=== PATIENT | female | born 1950 | race Caucasian/White ===

== ENCOUNTER 2017-05-09 16:01 | Inpatient (IN) ==
[2017-05-09] MEDS ORDERED: 0.9 % Sodium Chloride 500 ML IVC ONE (18:43)
[2017-05-09] MEDS ORDERED: Metoclopramide 10 MG/2 ML VIAL IVP ONE (18:43)
--- NOTE | 2017-05-09 18:47 | Emergency Department Note ---
Disposition Clinical Impression: Hypokalemia Nausea and vomiting Qualifiers: Vomiting type: unspecified Vomiting Intractability: intractable Qualified Code( s): R11.2 - Nausea with vomiting, unspecified UTI (urinary tract infection) Qualifiers: Urinary tract infection type: site unspecified Hematuria presence: with hematuria Qualified Code(s): N39.0 - Urinary tract infection, site not specified Disposition: Admitted As Inpatient Condition: Fair Nausea/Vomiting/Diarrhea HPI - General Chief complaint: ED Nausea/Vomiting/Diarrhea Stated complaint: N/V Time Seen by Provider: 05/09/17 18:29 Source: patient, EMS Mode of arrival: ambulatory Limitations: no limitations Nursing Notes Reviewed: Yes Vital Signs Reviewed: Yes - History of Present Illness HPI Narrative: 66-year-old female history of diabetes, hypertension, CAD, on dialysis 2 days a week Tuesday and write a presents for evaluation of nausea and vomiting. Patient notes symptoms initially started approximately 3 weeks ago with diarrhea. Patient states that since then she has been taking antidiarrheal medicines which helped. Does note some intermittent nausea and vomiting over the past 2 weeks. States she has been able to tolerate some liquids but notes nausea and vomiting. Also notes some lower abdominal as well as midepigastric pain. States that she has had her gallbladder removed. No aggravating or alleviating symptoms identified. Has not been given any medicine prior to arrival. - Related Data Home Medications Medication Instructions Recorded Confirmed Amitriptyline [Elavil] 50 mg PO HS 07/10/15 03/17/17 Cranberry 400 mg PO BID 07/10/15 03/17/17 Cyclobenzaprine [Flexeril] 10 mg PO HS 07/10/15 03/17/17 Duloxetine [Cymbalta] 30 mg PO BID 07/10/15 03/17/17 Ergocalciferol (VITAMIN D2) 50,000 unit PO TU 07/10/15 03/17/17 [Vitamin D2 (50,000 UNIT)] Folic Acid 1 mg PO DAILY 07/10/15 03/17/17 Insulin ASPART [NovoLOG] 10 unit SQ BID 07/10/15 03/17/17 Insulin DETEMIR [Levemir] 12 unit SQ QAM 07/10/15 03/17/17 Levothyroxine [Synthroid] 50 mcg PO DAILY 07/10/15 03/17/17 OxyCODONE/APAP 5/325 [Percocet 1 tab PO QAM 07/10/15 03/17/17 5/325] Pantoprazole Sodium [Protonix] 40 mg PO BID 07/10/15 03/17/17 Solifenacin Succinate [Vesicare] 10 mg PO DAILY 07/10/15 03/17/17 Tamsulosin [Flomax] 0.4 mg PO DAILY 07/10/15 03/17/17 Zolpidem [Ambien] 5 mg PO HS 07/10/15 03/17/17 Gabapentin 300 mg PO HS 04/15/16 03/17/17 Clopidogrel Bisulfate [Plavix] 75 mg PO DAILY 10/14/16 03/17/17 Docusate [Colace] 100 mg PO BID 10/14/16 03/17/17 Isosorbide MONOnitrate (24 HR) 30 mg PO HS 10/14/16 03/17/17 [Imdur] Albuterol Sulfate [Proair Hfa] 2 puff IH Q4-6H PRN 03/17/17 03/17/17 Atorvastatin [Lipitor] 40 mg PO HS 03/17/17 03/17/17 Hydrocortisone 1% CREAM [Cortaid] 1 appl TP BID PRN 03/17/17 03/17/17 Insulin ASPART [Novolog Flexpen] 2 - 8 unit SQ TIDWM 03/17/17 03/17/17 Insulin DETEMIR [Levemir] 14 unit SQ HS 03/17/17 03/17/17 OxyCODONE/APAP 5/325 [Percocet 2 tab PO HS PRN 03/17/17 03/17/17 5/325 MG] Promethazine [Phenergan] 25 mg PO Q8HR PRN 03/17/17 03/17/17 Ranitidine HCl [Heartburn Relief] 150 mg PO BID 03/17/17 03/17/17 SUMAtriptan [Imitrex] 6 mg SQ ONCE PRN 03/17/17 03/17/17 Sucralfate [Carafate] 1 gm PO BID 03/17/17 03/17/17 Previous Rx's Medication Instructions Recorded Aspirin 81 mg PO DAILY #30 tab.chew 02/18/16 Metoprolol XL (24 HR) Succ [Toprol 12.5 mg PO DAILY #30 tab.er.24h 02/18/16 Xl] Allergies Allergy/AdvReac Type Severity Reaction Status Date / Time adhesive tape Allergy Redness of Verified 05/08/17 10:47 Skin latex Allergy Swelling Verified 05/08/17 10:47 of Lip/Tongue/Throat Sulfa (Sulfonamide Allergy Rash Verified 05/08/17 10:47 Antibiotics) All systems ED: reviewed and negative except as stated. Constitutional: Reports: as per HPI, fever Eyes: Reports: as per HPI ENT ED: Reports: as per HPI Cardiovascular: Reports: as per HPI. Denies: chest pain, palpitations Respiratory: Reports: as per HPI. Denies: dyspnea Gastrointestinal: Reports: as per HPI, abdominal pain, nausea, vomiting Genitourinary: Reports: as per HPI. Denies: urgency, dysuria Musculoskeletal: Reports: as per HPI Integumentary: Reports: as per HPI Neurological: Reports: as per HPI Psychiatric: Reports: as per HPI Endocrine: Reports: as per HPI Hematological/Lymphatic: Reports: as per HPI Past Medical History - Past Medical History Medical history: Reports: dialysis, other Surgical history: Reports: appendectomy, cholecystectomy, coronary bypass (CABG) , ureteral stent, other Psychiatric history: Reports: no psych history [employer]IC[employer] SPECIALIST history: Reports: no [employer]ATION MEDICINE SPECIALIST history - Social History Smoking Status: Never smoker Smokeless Tobacco Status: No Alcohol use: Reports: none Drug use: Reports: none Physical Exam - General Limitations: no limitations General appearance: alert, in no apparent distress - Head Head exam: atraumatic, normocephalic, normal inspection - Eye Eye exam: Present: normal appearance, PERRL, EOMI - ENT ENT exam: normal exam, normal oropharynx, mucous membranes moist - Neck Neck exam: Present: normal inspection, trachea midline - Chest Chest inspection: Present: normal inspection, tenderness - Respiratory Respiratory exam: Present: normal lung sounds bilaterally. Absent: respiratory distress - Cardiovascular Cardiovascular exam: Present: regular rate, normal rhythm, normal heart sounds - Abdominal Exam Abdominal exam: Present: soft, tenderness (Mild to moderate tenderness in the epigastrium). Absent: distention, guarding, rebound, rigidity - Extremities Exam Extremities exam: Present: normal inspection. Absent: pedal edema - Back Exam Back exam: Present: normal inspection - Neurological Exam Neurological exam: Present: alert, oriented X3 - Skin Skin exam: Present: warm, dry, intact, normal color Course Course Narrative: Patient seen and examined. Patient in no acute distress. Patient does admit to several episodes of nonbloody nonbilious emesis. Patient has had her gallbladder as well as an appendix removed. Patient's abdominal exam is nonsurgical. Patient will get lab evaluation, symptomatic treatment with Reglan as well as gradual fluid hydration. Patient will also receive CT of the abdomen and pelvis. - Reevaluation(s) Reevaluation #1: Patient is resting. Notes headache and would like her pain medication. Updated on plan of care. Patient agrees. Time: 20:11 Vital Signs Temperature 98.9 F 05/09/17 16:39 Pulse Rate 67 05/09/17 16:39 Respiratory Rate 18 05/09/17 16:39 Blood Pressure 160/84 05/09/17 16:39 O2 Sat by Pulse Oximetry 95 05/09/17 16:39 Temperature 98.9 F 05/09/17 21:12 Pulse Rate 77 05/09/17 20:46 Respiratory Rate 18 05/09/17 21:12 Blood Pressure 160/84 05/09/17 21:12 O2 Sat by Pulse Oximetry 98 05/09/17 20:46 Oxygen Delivery Oxygen Delivery Room Air Nausea/Vomiting/Diarrhea - MDM Narrative Medical decision making narrative: 66-year-old female with ESRD and diabetes presents for evaluation of nausea vomiting. Patient's symptoms of been prolonged in duration with 2 weeks as well as associated abdominal pain. Patient does have a history of UTIs and is ESRD however still produces urine. Patient is bridge to renal transplant. Patient had extensive laboratory evaluation which showed she was hypokalemic likely related to vomiting. Patient was given oral potassium supplementation as well as IV magnesium. Patient was also given small fluid bolus. Patient's urine did show signs of infection as well as CT imaging which suggested infection as well given the patient is high risk for worsening renal disease IV antibiotics was initiated. Patient also had a screening cardiac evaluation with new T-wave inversions in V1 and V2 with negative troponin. Patient had several risk factors that would need to be further monitored. Patient will be admitted to the hospitalist service for IV antibiotic therapy, symptomatically treatment as well as laboratory monitoring. Patient is agreeable with plan of care. - Lab Data Lab results reviewed: Yes I reviewed the patient's lab results. Result diagrams: 05/09/17 19:01 05/09/17 19:01 Lab Results 05/09/17 05/09/17 05/09/17 Range/Units 19: 19: 19: WBC 8.4 (4.3-11.1) K/mcL RBC 4.52 (3.82-4.97) M/mcL Hgb 13.7 (11.5-15.4) g/dL Hct 40.0 (35.3-44.9) % MCV 88.5 (83.0-100.0) fL MCH 30.3 (28.0-33.3) pg MCHC 34.3 (31.6-35.5) g/dL RDW 11.9 (11.5-14.5) % Plt Count 133 L (140-400) K/mcL MPV 11.3 (9.4-12.4) fL Immature Gran % 0.5 (0-4) % Seg Neutrophils % 68.6 % Lymphocytes % 21.8 % Monocytes % 6.6 % Eosinophils % 1.9 % Basophils % 0.6 % Neutrophils # 5.7 (1.6-8.9) K/mcL Lymphocytes # 1.8 (0.6-4.6) K/mcL Monocytes # 0.6 (0.0-1.3) K/mcL Eosinophils # 0.2 (0.0-0.6) K/mcL Basophils # 0.1 (0.0-0.2) K/mcL VBG pH (7.32-7.42) pH Units VBG pCO2 (41-51) mmHg VBG pO2 (25-40) mmHg VBG HCO3 (21-27) mEq/L Sodium 136 (136-145) mEq/L Potassium 2.9 L (3.5-4.5) mEq/L Chloride 96 L (98-109) mEq/L Carbon Dioxide 32 H (19-29) mEq/L BUN 8 (7-20) mg/dL Creatinine 1.67 H (0.57-1.11) mg/dL Est GFR ( Amer) 37 L (> 60) Est GFR (Non-Af Amer) 31 L (> 60) BUN/Creatinine Ratio 5 L (6-26) Glucose 245 H (70-99) mg/dL Calculated Osmolality 288 (280-300) Lactic Acid (0.5-2.2) mmol/L Calcium 7.9 L (8.6-10.8) mg/dL Magnesium 1.3 L (1.6-2.6) mg/dL Total Bilirubin 0.6 (0.2-1.2) mg/dL AST 20 (5-34) Units/L ALT 20 (0-55) Units/L Alkaline Phosphatase 204 H (38-126) Units/L Troponin I (0-0.03) ng/mL Serum Total Protein 6.6 (6.0-8.3) g/dL Albumin 3.0 L (3.5-5.0) g/dL Globulin 3.6 H (2.4-3.5) g/dL Albumin/Globulin Ratio 0.8 L (1.1-2.2) Lipase < 10 (8-78) Units/L Beta-Hydroxybutyric Acd 0.40 H (0.02-0.27) mmol/L Urine Color (Yellow) Urine Clarity (Clear) Urine pH (5.0-8.0) pH Units Ur Specific [place] (1.010-1.025) Urine Protein (Neg-Trace) mg/dL Urine Glucose (UA) (Normal) mg/dL Urine Ketones (Negative) mg/dL Urine Blood (Negative) Urine Nitrite (Negative) Urine Bilirubin (Negative) Urine Urobilinogen (Normal) mg/dL Ur Leukocyte Esterase (Negative) Urine Microscopic RBC (0-3) per hpf Urine Microscopic WBC (0-3) per hpf Ur Squamous Epith Cells (None-Few) per lpf Urine Bacteria (None-Few) per hpf Ur Culture Indicated? (NO) 05/09/17 05/09/17 05/09/17 Range/Units 19:01 19:01 19:40 WBC (4.3-11.1) K/mcL RBC (3.82-4.97) M/mcL Hgb (11.5-15.4) g/dL Hct (35.3-44.9) % MCV (83.0-100.0) fL MCH (28.0-33.3) pg MCHC (31.6-35.5) g/dL RDW (11.5-14.5) % Plt Count (140-400) K/mcL MPV (9.4-12.4) fL Immature Gran % (0-4) % Seg Neutrophils % % Lymphocytes % % Monocytes % % Eosinophils % % Basophils % % Neutrophils # (1.6-8.9) K/mcL Lymphocytes # (0.6-4.6) K/mcL Monocytes # (0.0-1.3) K/mcL Eosinophils # (0.0-0.6) K/mcL Basophils # (0.0-0.2) K/mcL VBG pH 7.40 (7.32-7.42) pH Units VBG pCO2 59 H (41-51) mmHg VBG pO2 22 L (25-40) mmHg VBG HCO3 36.5 H (21-27) mEq/L Sodium (136-145) mEq/L Potassium (3.5-4.5) mEq/L Chloride (98-109) mEq/L Carbon Dioxide (19-29) mEq/L BUN (7-20) mg/dL Creatinine (0.57-1.11) mg/dL Est GFR ( Amer) (> 60) Est GFR (Non-Af Amer) (> 60) BUN/Creatinine Ratio (6-26) Glucose (70-99) mg/dL Calculated Osmolality (280-300) Lactic Acid (0.5-2.2) mmol/L Calcium (8.6-10.8) mg/dL Magnesium (1.6-2.6) mg/dL Total Bilirubin (0.2-1.2) mg/dL AST (5-34) Units/L ALT (0-55) Units/L Alkaline Phosphatase (38-126) Units/L Troponin I 0.02 (0-0.03) ng/mL Serum Total Protein (6.0-8.3) g/dL Albumin (3.5-5.0) g/dL Globulin (2.4-3.5) g/dL Albumin/Globulin Ratio (1.1-2.2) Lipase (8-78) Units/L Beta-Hydroxybutyric Acd (0.02-0.27) mmol/L Urine Color Yellow (Yellow) Urine Clarity Turbid A (Clear) Urine pH 6.5 (5.0-8.0) pH Units Ur Specific [place] 1.025 (1.010-1.025) Urine Protein >=1000 H (Neg-Trace) mg/dL Urine Glucose (UA) 500 H (Normal) mg/dL Urine Ketones Negative (Negative) mg/dL Urine Blood Moderate H (Negative) Urine Nitrite Negative (Negative) Urine Bilirubin Small H (Negative) Urine Urobilinogen Normal (Normal) mg/dL Ur Leukocyte Esterase Large H (Negative) Urine Microscopic RBC 0-3 (0-3) per hpf Urine Microscopic WBC TNTC H (0-3) per hpf Ur Squamous Epith Cells Many H (None-Few) per lpf Urine Bacteria Many H (None-Few) per hpf Ur Culture Indicated? YES A (NO) 05/09/17 Range/Units 19:58 WBC (4.3-11.1) K/mcL RBC (3.82-4.97) M/mcL Hgb (11.5-15.4) g/dL Hct (35.3-44.9) % MCV (83.0-100.0) fL MCH (28.0-33.3) pg MCHC (31.6-35.5) g/dL RDW (11.5-14.5) % Plt Count (140-400) K/mcL MPV (9.4-12.4) fL Immature Gran % (0-4) % Seg Neutrophils % % Lymphocytes % % Monocytes % % Eosinophils % % Basophils % % Neutrophils # (1.6-8.9) K/mcL Lymphocytes # (0.6-4.6) K/mcL Monocytes # (0.0-1.3) K/mcL Eosinophils # (0.0-0.6) K/mcL Basophils # (0.0-0.2) K/mcL VBG pH (7.32-7.42) pH Units VBG pCO2 (41-51) mmHg VBG pO2 (25-40) mmHg VBG HCO3 (21-27) mEq/L Sodium (136-145) mEq/L Potassium (3.5-4.5) mEq/L Chloride (98-109) mEq/L Carbon Dioxide (19-29) mEq/L BUN (7-20) mg/dL Creatinine (0.57-1.11) mg/dL Est GFR ( Amer) (> 60) Est GFR (Non-Af Amer) (> 60) BUN/Creatinine Ratio (6-26) Glucose (70-99) mg/dL Calculated Osmolality (280-300) Lactic Acid 0.9 (0.5-2.2) mmol/L Calcium (8.6-10.8) mg/dL Magnesium (1.6-2.6) mg/dL Total Bilirubin (0.2-1.2) mg/dL AST (5-34) Units/L ALT (0-55) Units/L Alkaline Phosphatase (38-126) Units/L Troponin I (0-0.03) ng/mL Serum Total Protein (6.0-8.3) g/dL Albumin (3.5-5.0) g/dL Globulin (2.4-3.5) g/dL Albumin/Globulin Ratio (1.1-2.2) Lipase (8-78) Units/L Beta-Hydroxybutyric Acd (0.02-0.27) mmol/L Urine Color (Yellow) Urine Clarity (Clear) Urine pH (5.0-8.0) pH Units Ur Specific [place] (1.010-1.025) Urine Protein (Neg-Trace) mg/dL Urine Glucose (UA) (Normal) mg/dL Urine Ketones (Negative) mg/dL Urine Blood (Negative) Urine Nitrite (Negative) Urine Bilirubin (Negative) Urine Urobilinogen (Normal) mg/dL Ur Leukocyte Esterase (Negative) Urine Microscopic RBC (0-3) per hpf Urine Microscopic WBC (0-3) per hpf Ur Squamous Epith Cells (None-Few) per lpf Urine Bacteria (None-Few) per hpf Ur Culture Indicated? (NO) - Radiology Data Radiology results reviewed: Yes I reviewed the patient's radiology results. Abdomen/Pelvis CT 05/09/17 18:59 IMPRESSION: 1. There is a right ureteral stent in place. Moderate amount of air is present in the urinary bladder, and within the right renal collecting system. This is nonspecific. In the absence of recent bladder instrumentation, this could indicate an ascending urinary tract infection. 2. Minimal pelvicaliectasis on the right. D/ : / 05/09/2017 19:36:43 Neville Meyers MD / rupal Interpreting Provider: Neville Meyers MD - EKG Data EKG attestation: Yes I reviewed and interpreted this EKG. EKG shows normal: sinus rhythm Rate: normal Rhythm: NSR Sodus/QRS: left axis deviation, IVCD Voltage: c/w LVH T wave inversions noted in: aVR, v1, v2 When compared to previous EKG there are: changes noted (03/16) Interpretation: nonspecific ST-T wave changes S.[facility] - Sandro Situation: Demographics Background: Presenting Complaint Assessment: Vital Signs, Course and respsone to treatment, Patient/Family Expectation Recommendation: Barrier(s) to disposition, Recommendation based on pending studies, treatments, or consults Sandro Report Given to: Dr. Rajiv Jo Repor Time: 20:03 Attestation Statement - Attestation Attestation: I examined this patient and my medical decision-making was reviewed with the [employer]/PA/Advanced Practice Nurse/Resident Physician. I agree with the documented findings, disposition and treatment plan as described except to the extent set forth below. Patient to ED with a chief complaint of nausea vomiting. Multiple episodes over the past 2 weeks. States she cannot keep anything down. Patient is a dialysis patient. Also diabetic. She denies any chest pain. She denies difficulty breathing. No diaphoretic episodes. Exam shows her in no acute distress with a soft abdomen. Plan. The patient has a negative troponin. She is having no cardiac symptoms. She does have some new anteroseptal T wave changes. Concern with her history diabetes and end-stage renal disease. Symptoms are controlled at this time. Patient admitted for further workup.
[2017-05-09 19:06] LABS: VBG HCO3 36.5 mEq/L (21-27); VBG PH 7.4 pH Units (7.32-7.42)
[2017-05-09 19:12] LABS: Basophils # 0.1 K/mcL (0.0-0.2); Basophils % 0.6 %; Eosinophils # 0.2 K/mcL (0.0-0.6); Eosinophils % 1.9 %; Hemoglobin 13.7 g/dL (11.5-15.4); Immature Granulocytes % 0.5 % (0-4); Lymphocytes # 1.8 K/mcL (0.6-4.6); Lymphocytes % 21.8 %; Mean Corpuscular HGB Conc 34.3 g/dL (31.6-35.5); Mean Corpuscular Hemoglobin 30.3 pg (28.0-33.3); Mean Corpuscular Volume 88.5 fL (83.0-100.0); Mean Platelet Volume 11.3 fL (9.4-12.4); Monocytes # 0.6 K/mcL (0.0-1.3); Monocytes % 6.6 %; Neutrophils # 5.7 K/mcL (1.6-8.9); Platelet Count 133 K/mcL (140-400); Red Blood Count 4.52 M/mcL (3.82-4.97); Red Cell Distribution Width 11.9 % (11.5-14.5); Segmented Neutrophils % 68.6 %
[2017-05-09 19:20] LABS: Alanine Aminotransferase 20 Units/L (0-55); Albumin/Globulin Ratio 0.8 (1.1-2.2); Alkaline Phosphatase 204 Units/L (38-126); Aspartate Amino Transferase 20 Units/L (5-34); BUN/Creatinine Ratio 5 (6-26); Bilirubin,Total 0.6 mg/dL (0.2-1.2); Blood Urea Nitrogen 8 mg/dL (7-20); Calcium 7.9 mg/dL (8.6-10.8); Carbon Dioxide 32 mEq/L (19-29); Chloride 96 mEq/L (98-109); Globulin 3.6 g/dL (2.4-3.5); Glucose 245 mg/dL (70-99); Magnesium 1.3 mg/dL (1.6-2.6); Osmolality,Calculated 288 (280-300); Potassium 2.9 mEq/L (3.5-4.5); Sodium 136 mEq/L (136-145); Total Protein 6.6 g/dL (6.0-8.3); eGFR For African Americans 37 (> 60); eGFR For Non-African Americans 31 (> 60)
[2017-05-09 19:22] LABS: Lipase < 10 Units/L (8-78)
[2017-05-09] MEDS ORDERED: *HR* OxyCODONE/APAP 5/325 TABLET PO ONE (19:43)
[2017-05-09 19:48] LABS: Bilirubin,Urine Small (Negative); Blood,Urine Moderate (Negative); Clarity,Urine Turbid (Clear); Color,Urine Yellow (Yellow); Glucose,Urine (UA) 500 mg/dL (Normal); Ketones,Urine Negative (Negative); Leukocyte Esterase,Urine Large (Negative); Nitrite,Urine Negative (Negative); PH,Urine 6.5 pH Units (5.0-8.0); Protein,Urine >=1000 mg/dL (Neg-Trace); Specific Gravity,Urine 1.025 (1.010-1.025); Urobilinogen,Urine Normal (Normal)
[2017-05-09 19:50] LABS: Bacteria,Urine Many per hpf (None-Few); Squamous Epithelial Cell,Urine Many per lpf (None-Few); WBC,Urine TNTC per hpf (0-3)
[2017-05-09 20:07] LABS: RBC,Urine 0-3 per hpf (0-3)
--- NOTE | 2017-05-09 21:13 | Internal Med History&Physical ---
Date of Encounter: 05/09/17 Time of Encounter: 21:10 Assessment and Plan (1) UTI (urinary tract infection) Current visit: Yes Status: Acute Patient has had recurrent UTIs in the past with multiple different organisms previously resistant to fluoroquinolones Will start on Rocephin 1 mg daily; may de-escalate pending urine culture results and sensitivities Abdomen CT did show air in the urinary bladder indicating possible ascending UTI , but given that she is complaining of passing "air through vagina", we will consult urology for possible fistula as they have managed her right sided ureteral stent in the recent past Qualifiers: Urinary tract infection type: site unspecified Hematuria presence: with hematuria Qualified Code(s): N39.0 - Urinary tract infection, site not specified; R31.9 - Hematuria, unspecified (2) Nausea and vomiting Current visit: Yes Status: Acute Possibly secondary to UTI and uncontrolled diabetes leading to gastroparesis, but cannot rule out cardiac etiology at this time Will administer anti-emetics with both Reglan and Zofran as needed Obtain Troponins x2; initial one was negative at 0.02 Replenish electrolytes as needed Start with full liquids and advance diet as tolerated Qualifiers: Vomiting type: unspecified Vomiting Intractability: unspecified Qualified Code(s): R11.2 - Nausea with vomiting, unspecified (3) Hypokalemia Current visit: Yes Status: Acute Likely secondary to GI losses from recurrent vomiting/diarrhea Initially K was 2.9, and 40 mEq given in ED Will recheck levels in AM and replete electrolytes as needed (4) ESRD needing dialysis Current visit: No Status: Chronic Cr is near baseline and there are no signs of overt fluid overload requiring urgent dialysis If patient has prolonged stay, may consider consulting Dr. Patel for management of HD as she is currently on Tuesday/Tuesday schedule She does have RUE fistula and is bridging for renal transplant in [place] (5) Insulin dependent diabetes mellitus Current visit: Yes Status: Chronic Will stop home insulin regimen and start on mediums dose SSI, accuchecks ACHS Last A1c checked 8 months ago was 8.3%, will recheck in AM (6) CAD (coronary artery disease) of artery bypass graft Current visit: Yes Status: Acute Patient currently not complaining of chest pain, but does have anginal equivalent given her nausea/vomiting especially in setting of diabetes Initial troponin negative at 0.01, will repeat x2 due to new T-wave inversions noted in v1, v2 Continue home ASA/Plavix, Lipitor, Toprol Qualifiers: Qualified Code(s): I25.810 - Atherosclerosis of coronary artery bypass graft( s) without angina pectoris (7) DVT prophylaxis Current visit: Yes Status: Acute Heparin 5000 units BID Internal Medicine - H&P: HPI Chief complaint: nausea, vomiting, UTI Admitted From: Home Plans for Post Hospital Care: Home History of present illness: Ms. Dan is a 66 year old female who presents from [facility] to the emergency department with nausea, vomiting, dysuria. She has CKD IV and is on HD Mondays and Fridays, which is managed by Dr. Patel. Patient states that roughly 2 weeks ago she started having nausea, vomiting, diarrhea. She states the diarrhea has since resolved but she has been experiencing worsening nausea and vomiting that is not related with oral intake. She claims to have roughly 3 or 4 episodes of vomiting daily for the past 2 weeks. She states both epigastric and lower abdominal pain during this time. She denies any blood or bile in the vomit, and had previously had her gallbladder and appendix taken out. She also has been complaining of dysuria that has been present the last 3 or 4 days. She does have significant history of recurrent UTIs and states that this feels similar. She denies any blood in the urine however does complain of it being darker and having a foul odor. She denies any chest pain, shortness of breath, fever, blood in the stool or urine. Of note , she did have CABG x2 in 1999 and has been on ASA/Plavix since. Past Med Surg Social Fam HX - Past Medical History Medical history: dialysis, other Psychiatric history: no psych history - Past Surgical History Surgical History: appendectomy, cholecystectomy, coronary bypass (CABG), ureteral stent, other - Social History Smoking Status: Never smoker Smokeless Tobacco Status: No Alcohol use: none Drug use: none Internal Medicine - H&P: Meds Amitriptyline [Elavil] 25 mg PO HS 07/10/15 [History] Cyclobenzaprine [Flexeril] 10 mg PO QAM 07/10/15 [History] Duloxetine [Cymbalta] 30 mg PO QAM 07/10/15 [History] Ergocalciferol (VITAMIN D2) [Vitamin D2 (50,000 UNIT)] 50,000 unit PO MO [History] Folic Acid 1 mg PO DAILY 07/10/15 [History] Insulin ASPART [NovoLOG] 10 unit SQ BID 07/10/15 [History] Levothyroxine [Synthroid] 50 mcg PO QAM 07/10/15 [History] OxyCODONE/APAP 5/325 [Percocet 5/325] 1 tab PO DAILY PRN 07/10/15 [History] Pantoprazole Sodium [Protonix] 40 mg PO BID 07/10/15 [History] Solifenacin Succinate [Vesicare] 10 mg PO DAILY 07/10/15 [History] Tamsulosin [Flomax] 0.4 mg PO DAILY 07/10/15 [History] Zolpidem [Ambien] 10 mg PO HS 07/10/15 [History] Aspirin 81 mg PO DAILY #30 tab.chew 02/18/16 [Rx] Metoprolol XL (24 HR) Succ [Toprol Xl] 12.5 mg PO DAILY #30 tab.er.24h 02/18/16 [Rx] Gabapentin 300 mg PO HS 04/15/16 [History] Docusate [Colace] 100 mg PO BID 10/14/16 [History] Isosorbide MONOnitrate (24 HR) [Imdur] 30 mg PO HS 10/14/16 [History] Albuterol Sulfate [Proair Hfa] 2 puff IH Q4H PRN 03/17/17 [History] Atorvastatin [Lipitor] 40 mg PO HS 03/17/17 [History] Insulin DETEMIR [Levemir] 10 unit SQ BID 03/17/17 [History] OxyCODONE/APAP 5/325 [Percocet 5/325 MG] 2 tab PO HS PRN 03/17/17 [History] Promethazine [Phenergan] 25 mg PO Q8HR PRN 03/17/17 [History] Ranitidine HCl [Heartburn Relief] 150 mg PO BID 03/17/17 [History] SUMAtriptan [Imitrex] 6 mg SQ BID PRN 03/17/17 [History] Clopidogrel [Plavix] 75 mg PO DAILY 05/09/17 [History] Cranberry Fruit Extract/Vit C [Azo Cranberry Softgel] 1 each PO DAILY 05/09/17 [ History] Ferrous Sulfate 325 mg PO DAILY 05/09/17 [History] Ondansetron ODT [Zofran ODT] 4 mg PO Q8H PRN 05/09/17 [History] Pramipexole Di-HCl [Pramipexole Dihydrochloride] 0.125 mg PO HS 05/09/17 [ History] Sucralfate [Carafate] 1 gm PO 0730,1630 05/09/17 [History] Allergies adhesive tape Allergy (Verified 05/08/17 10:47) Redness of Skin latex Allergy (Verified 05/08/17 10:47) Swelling of Lip/Tongue/Throat negative test Sulfa (Sulfonamide Antibiotics) Allergy (Verified 05/08/17 10:47) Rash All Systems PM: A 10-system review of systems was performed and is negative for pertinent findings except as documented above in the HPI. - Constitutional Constitutional: chills, weakness (generalized), no fever(s), no night sweats - EENT Eyes: no change in vision, no discharge, no pain, no photophobia Ears: no ear discharge, no ear pain, no tinnitus Nose, mouth and throat: no dysphagia, no nasal discharge, no neck pain, no sore throat - Cardiovascular Cardiovascular ROS IM: no chest pain, no diaphoresis, no dyspnea, no lightheadedness, no palpitations, no syncope - Respiratory Respiratory: no cough, no dyspnea, no wheezing, no excessive phlegm production - Gastrointestinal Gastrointestinal: abdominal pain, diarrhea, nausea, vomiting, no hematemesis, no hematochezia, no melena - Genitourinary Genitourinary: dysuria, no change in urinary stream, no flank pain, no hematuria - Musculoskeletal Musculoskeletal ROS IM: no numbness, no tingling - Integumentary Integumentary IM: no rash, no unusual bruising - Neurological Neurological ROS: no confusion, no convulsions, no focal weakness, no numbness, no tingling, no tremor(s) - Constitutional Vitals: Temp Pulse Resp BP Pulse Ox 98.9 F 77 18 160/84 98 05/09/17 16:39 05/09/17 20:46 05/09/17 20:46 05/09/17 20:46 05/09/17 20:46 General appearance: Present: cooperative, pleasant, no acute distress, obese, answers questions appropriately - Head Head exam: Present: atraumatic, normocephalic - Eye Eye exam: Present: PERRL, conjuntiva pink, sclera anicteric - Neck Neck exam general surgery: Present: supple, trachea midline. Absent: lymphadenopathy - Respiratory Respiratory exam: Present: CTAB. Absent: accessory muscle use, rales, rhonchi, wheezes - Cardiovascular Cardiovascular exam: Present: RRR, +S1, +S2. Absent: diastolic murmur, gallop, rubs, systolic murmur - GI/Abdominal GI/Abdominal exam: Present: normal bowel sounds, soft, tenderness (epigastric and lower abdominal bilaterally), no peritoneal signs. Absent: distended - Extremities Exam Extremities exam: Present: pedal edema (trace), warm, radial pulses palpable and symetrical. Absent: calf tenderness, cyanotic - Neurological Exam Neurological exam: Present: alert, no focal deficits. Absent: facial droop, speech deficit - Skin Skin exam: Present: dry, intact Internal Med - H&P Results - Labs CBC & Chem 7: 05/09/17 19:01 05/09/17 19:01
[2017-05-09] MEDS ORDERED: Acetaminophen 325 MG TABLET PO PRN (21:35)
[2017-05-09] MEDS ORDERED: Dextrose Gel 15 GM PO PRN ×2 (21:35)
[2017-05-09] MEDS ORDERED: *HR* Dextrose 50 % in Water (Syg) 50 ML SYRINGE IVP PRN (21:35)
[2017-05-09] MEDS ORDERED: D5% in Water 1,000 ML IVC PRN (21:35)
[2017-05-09] MEDS ORDERED: Naloxone 0.4 MG/ML INJ IVP PRN (21:35)
[2017-05-09] MEDS ORDERED: *HR* OxyCODONE/APAP 5/325 TABLET PO PRN (21:42)
[2017-05-09] MEDS ORDERED: Metoclopramide 10 MG/2 ML VIAL IVP PRN (21:50)
--- NOTE | 2017-05-09 22:00 | Event Note ---
Date of Encounter: 05/09/17 Time of Encounter: 21:58 Patient seen and examined with medical services manager. Patients with end-stage renal disease on hemodialysis twice-weekly pending transplant, presents with the main complain of nausea vomiting inability to keep food down for 2 weeks in addition to lower abdominal pain. She has a urinary tract infection and she will be started on ceftriaxone. Of concern patient mentions that she notices that there is air passing out from vagina. On the CT scan there is moderate amount of air in the urinary system. I discussed with her the possibility of fistulous connection between her urinary system and vagina. We will get urology consultation. Small amount of ketones due to dehydration, Gentle hydration. She is full code.
[2017-05-09] MEDS: 0.9 % Sodium Chloride 1,000 ML IVC SCH (22:46)
[2017-05-09] MEDS: Insulin DETEMIR 100 UNIT/ML X5UNITS SQ SCH (23:00)
[2017-05-09] MEDS: Insulin LISPRO 300 UNITS/3 ML VIAL SQ SCH (23:00)
[2017-05-10 02:12] LABS: Basophils % 0.6 %; Eosinophils # 0.1 K/mcL (0.0-0.6); Hematocrit 38.4 % (35.3-44.9); Hemoglobin 12.7 g/dL (11.5-15.4); Immature Granulocytes % 0.4 % (0-4); Lymphocytes % 29.2 %; Mean Corpuscular HGB Conc 33.1 g/dL (31.6-35.5); Mean Corpuscular Hemoglobin 30.2 pg (28.0-33.3); Mean Corpuscular Volume 91.4 fL (83.0-100.0); Monocytes # 0.5 K/mcL (0.0-1.3); Monocytes % 7.5 %; Neutrophils # 4.2 K/mcL (1.6-8.9); Platelet Count 101 K/mcL (140-400); Red Cell Distribution Width 11.9 % (11.5-14.5); Segmented Neutrophils % 60.3 %
[2017-05-10 02:17] LABS: Calcium 7.7 mg/dL (8.6-10.8); Magnesium 1.8 mg/dL (1.6-2.6)
[2017-05-10 02:29] LABS: Hemoglobin A1C 9.1 %
[2017-05-10 02:40] LABS: Thyroid Stimulating Hormone 1.363 mcIU/mL (0.350-4.840)
[2017-05-10] MEDS: *HR* Heparin 5,000 UNIT/ML VIAL SQ SCH ×2 (06:12→18:17)
[2017-05-10] MEDS ORDERED: *HR* OxyCODONE/APAP 5/325 TABLET PO SCH (09:00)
[2017-05-10] MEDS ORDERED: Magnesium Oxide 400 MG TABLET PO ONE (09:00)
[2017-05-10] MEDS: Aspirin 81 MG TAB.CHEW PO SCH (09:07)
[2017-05-10] MEDS: Metoprolol XL (24 HR) Succ 25 MG TAB.ER.24H PO SCH (09:07)
[2017-05-10] MEDS: Sucralfate 1 GM TABLET PO SCH ×2 (09:07→16:16)
[2017-05-10] MEDS: Folic Acid 1 MG TABLET PO SCH (09:07)
[2017-05-10] MEDS: Insulin LISPRO 300 UNITS/3 ML VIAL SQ SCH ×5 (09:08→20:40)
[2017-05-10] MEDS ORDERED: Metoclopramide 10 MG/2 ML VIAL IVP PRN (09:21)
[2017-05-10] MEDS: Ondansetron 4 MG/2 ML VIAL IVP PRN ×2 (09:26→22:10)
--- NOTE | 2017-05-10 09:53 | Internal Med Progress Note ---
Date of Encounter: 05/10/17 Time of Encounter: 09:53 - Assessment and plan (1) UTI (urinary tract infection) Current Visit: Yes Status: Acute Assessment and plan: Complicated, due to in-dwelling, stent Continue Ceftriaxone Urine culture with GNR Consult nephrology for Pneumaturia, possibly from procedure, also possibly from active urinary tract infection However, patient with concerns for air coming from her vagina, consult SMOKING PIPE LINER after eval Qualifiers: Urinary tract infection type: site unspecified Hematuria presence: with hematuria Qualified Code(s): N39.0 - Urinary tract infection, site not specified; R31.9 - Hematuria, unspecified (2) Peripheral arterial disease Current Visit: Yes Status: Chronic Assessment and plan: Continue home meds (3) Coronary artery disease Current Visit: Yes Status: Chronic Assessment and plan: No chest pain Continue home meds Qualifiers: Coronary Disease-Associated Artery/Lesion type: unspecified vessel or lesion type [place] vs. 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 insulin use: with chcf use Qualified Code(s): E11.59 - Type 2 diabetes mellitus with other circulatory complications; Z79.4 - [facility]CF (current) use of insulin (5) GERD (gastroesophageal reflux disease) Current Visit: Yes Status: Chronic Assessment and plan: Continue home meds Qualifiers: Esophagitis presence: esophagitis presence not specified Qualified Code(s) : K21.9 - Gastro-esophageal reflux disease without esophagitis (6) Hypokalemia Current Visit: Yes Status: Acute Assessment and plan: Replaced, continue to monitor (7) ESRD needing dialysis Current Visit: Yes Status: Chronic Assessment and plan: Consult nephrology routinely for HD - Subjective Interval history: Seen and evaluated at the bedside Patient with PMH of ESRD on HD, DM, CAD She is being managed for complicated UTI (hx of recurrent UTIs and indwelling ureteral stent) Patient is concerned about passing air per vagina, she complains that this is painful, denies trauma, not sexually active There is evidence of gas in her urinary tract She otherwise reports improvement, awaiting culture reports and Urology laura Will consult SMOKING PIPE LINER as well - Constitutional Vitals: Temp Pulse Resp BP Pulse Ox 97.9 F 79 14 188/105 93 05/10/17 07:06 05/10/17 07:06 05/10/17 07:06 05/10/17 07:06 05/10/17 07:06 General appearance: Present: cooperative, A&O X 3, pleasant, no acute distress, obese, answers questions appropriately - Head Head exam: Present: atraumatic, normocephalic - Eye Eye exam: Present: PERRL, conjuntiva pink, sclera anicteric Pupils: Present: PERRL - Neck Neck exam general surgery: Present: supple, trachea midline. Absent: lymphadenopathy - Respiratory Respiratory exam: Present: CTAB. Absent: accessory muscle use, rales, rhonchi, wheezes - Cardiovascular Cardiovascular exam: Present: RRR, +S1, +S2. Absent: diastolic murmur, gallop, rubs, systolic murmur - GI/Abdominal GI/Abdominal exam: Present: normal bowel sounds, soft, no peritoneal signs. Absent: distended, tenderness - Extremities Exam Extremities exam: Present: warm, radial pulses palpable and symetrical. Absent : calf tenderness, cyanotic, pedal edema - Back Exam Back exam: Present: CVA tenderness (R) - Neurological Exam Neurological exam: Present: alert, CN II-XII intact, oriented X3, no focal deficits. Absent: pronater drift, facial droop, speech deficit - Skin Skin exam: Present: dry, intact Internal Medicine: Result - Labs CBC & Chem 7: 05/10/17 01:30 05/10/17 01:30 Labs: Cardiac Enzymes 05/10/17 Range/Units 06:56 Troponin I 0.03 (0-0.03) ng/mL Consult Discharge Plan - Plan Referrals: NO,PCP [Primary Care Provider] -
[2017-05-10] MEDS: 0.9 % Sodium Chloride 1,000 ML IVC SCH (11:53)
[2017-05-10] MEDS ORDERED: *HR* OxyCODONE/APAP 5/325 TABLET PO PRN (12:27)
[2017-05-10] MEDS ORDERED: Albuterol 2.5 MG/3 ML NEBULIZER IH PRN (15:01)
--- NOTE | 2017-05-10 16:23 | Electrocardiograph Report ---
[place] [id number] Test Date: 2017-05-09 Pat Name: Alaina Dan Department: 102 Room: 2A Gender: F Seismograph Chief: : 1950 Requested By: Harish Osuna Order Number: [id number] Reading MD: Dale Kramer Measurements Intervals [place] Rate: 66 P: 42 HI: 175 QRS: -19 QRSD: 106 T: 50 QT: 427 QTc: 440 Interpretive Statements SINUS RHYTHM MODERATE INTRAVENTRICULAR CONDUCTION DELAY MINIMAL VOLTAGE CRITERIA FOR LVH, CONSIDER NORMAL VARIANT Electronically Signed On 05-10-2017 16:21:52 EDT by Dale Kramer
--- NOTE | 2017-05-10 18:15 | Urology - Consult Note ---
Date of Encounter: 05/10/17 Time of Encounter: 18:11 - Assessment and Plan (1) UTI (urinary tract infection) Current Visit: Yes Status: Acute Assessment and plan: Patient likely has urinary colonization because she has a long-standing ureteral stent. It is not possible to completely clear this bacteria with a persistent stent in place. At the same time, I'm concerned that the pneumaturia and increasing air in the collecting system indicate there is a worsening infection. Will discuss with Dr. Wu as he knows this patient well. I suspect the plan will be to exchange the stent during the hospitalization and continue a long course of antibiotics after discharge. Appropriate antibiotics will be decided based on her recent culture. Long-term she may need to consider a ureteral reimplantation in order to remove the ureteral stent. Plan to follow Qualifiers: Urinary tract infection type: site unspecified Hematuria presence: with hematuria Qualified Code(s): N39.0 - Urinary tract infection, site not specified; R31.9 - Hematuria, unspecified Urology CN:HPI Consult date: 05/10/17 History of present illness: Patient well known to the urology service. Long-standing history of right ureteral obstruction. She's followed by Dr. Wu and managed with chronic indwelling stent. Stent was exchanged in February. Presents with increasing abdominal discomfort. No flank pain. Intractable nausea vomiting. States she is feeling somewhat better at this time. CT scan shows increasing air in her right collecting system next to the stent and bladder. She is experiencing pneumaturia Past Med Surg Social Fam HX - Past Medical History Medical history: dialysis, other Psychiatric history: no psych history - Past Surgical History Surgical History: appendectomy, cholecystectomy, coronary bypass (CABG), ureteral stent, other - Social History Smoking Status: Never smoker Smokeless Tobacco Status: No Alcohol use: none Drug use: none - Family History Mother Living Status: Hx Family Endocrine Disorder: (DM) Father Hx Family Cardiac Disorders: Yes ("heart troubles") Hx Family Endocrine Disorder: Yes (DM) Medications and Allergies Amitriptyline [Elavil] 25 mg PO HS 07/10/15 [History] Cyclobenzaprine [Flexeril] 10 mg PO QAM 07/10/15 [History] Duloxetine [Cymbalta] 30 mg PO QAM 07/10/15 [History] Ergocalciferol (VITAMIN D2) [Vitamin D2 (50,000 UNIT)] 50,000 unit PO MO [History] Folic Acid 1 mg PO DAILY 07/10/15 [History] Insulin ASPART [NovoLOG] 10 unit SQ BID 07/10/15 [History] Levothyroxine [Synthroid] 50 mcg PO QAM 07/10/15 [History] OxyCODONE/APAP 5/325 [Percocet 5/325] 1 tab PO DAILY PRN 07/10/15 [History] Pantoprazole Sodium [Protonix] 40 mg PO BID 07/10/15 [History] Solifenacin Succinate [Vesicare] 10 mg PO DAILY 07/10/15 [History] Tamsulosin [Flomax] 0.4 mg PO DAILY 07/10/15 [History] Zolpidem [Ambien] 10 mg PO HS 07/10/15 [History] Aspirin 81 mg PO DAILY #30 tab.chew 02/18/16 [Rx] Metoprolol XL (24 HR) Succ [Toprol Xl] 12.5 mg PO DAILY #30 tab.er.24h 02/18/16 [Rx] Gabapentin 300 mg PO HS 04/15/16 [History] Docusate [Colace] 100 mg PO BID 10/14/16 [History] Isosorbide MONOnitrate (24 HR) [Imdur] 30 mg PO HS 10/14/16 [History] Albuterol Sulfate [Proair Hfa] 2 puff IH Q4H PRN 03/17/17 [History] Atorvastatin [Lipitor] 40 mg PO HS 03/17/17 [History] Insulin DETEMIR [Levemir] 10 unit SQ BID 03/17/17 [History] OxyCODONE/APAP 5/325 [Percocet 5/325 MG] 2 tab PO HS PRN 03/17/17 [History] Promethazine [Phenergan] 25 mg PO Q8HR PRN 03/17/17 [History] Ranitidine HCl [Heartburn Relief] 150 mg PO BID 03/17/17 [History] SUMAtriptan [Imitrex] 6 mg SQ BID PRN 03/17/17 [History] Clopidogrel [Plavix] 75 mg PO DAILY 05/09/17 [History] Cranberry Fruit Extract/Vit C [Azo Cranberry Softgel] 1 each PO DAILY 05/09/17 [ History] Ferrous Sulfate 325 mg PO DAILY 05/09/17 [History] Ondansetron ODT [Zofran ODT] 4 mg PO Q8H PRN 05/09/17 [History] Pramipexole Di-HCl [Pramipexole Dihydrochloride] 0.125 mg PO HS 05/09/17 [ History] Sucralfate [Carafate] 1 gm PO 0730,1630 05/09/17 [History] Allergies adhesive tape Allergy (Verified 05/08/17 10:47) Redness of Skin latex Allergy (Verified 05/08/17 10:47) Swelling of Lip/Tongue/Throat negative test Sulfa (Sulfonamide Antibiotics) Allergy (Verified 05/08/17 10:47) Rash Review of Systems - Constitutional fatigue, malaise, no chills, no fever(s) - EENT Nose, mouth and throat: no dizziness - Cardiovascular no chest pain - Respiratory no cough - Gastrointestinal abdominal pain, nausea, vomiting - Genitourinary Genitourinary: no flank pain - Musculoskeletal no back pain - Integumentary no erythema - Neurological no confusion - Psychiatric no anxiety - Hematologic/Lymphatic no easy bleeding - Allergic/Immunologic no throat swelling Exam Initial Vital Signs Temp Pulse Resp BP Pulse Ox 98.9 F 67 18 160/84 95 05/09/17 16:39 05/09/17 16:39 05/09/17 16:39 05/09/17 16:39 05/09/17 16:39 - General physical appearance Present: well developed, no distress - Eyes Present: PERRL - ENT Present: normal nares - Neck Present: no masses - Respiratory Present: normal respiratory effort - Cardiovascular Cardiovascular exam IM: RRR - Abdomen Abdomen: Present: soft - Integumentary Present: no rash - Neurologic Present: normal coordination. Absent: disoriented, confused - Musculoskeletal Present: normal gait Urology Results - Labs 05/10/17 01:30 05/10/17 01:30 Abnormal lab results Plt Count 101 K/mcL (140-400) L 05/10/17 01:30 VBG pCO2 59 mmHg (41-51) H 05/09/17 19:01 VBG pO2 22 mmHg (25-40) L 05/09/17 19:01 VBG HCO3 36.5 mEq/L (21-27) H 05/09/17 19:01 Potassium 3.0 mEq/L (3.5-4.5) L 05/10/17 01:30 Creatinine 1.69 mg/dL (0.57-1.11) H 05/10/17 01:30 Est GFR ( Amer) 36 (> 60) L 05/10/17 01:30 Est GFR (Non-Af Amer) 30 (> 60) L 05/10/17 01:30 BUN/Creatinine Ratio 5 (6-26) L 05/10/17 01:30 Glucose 197 mg/dL (70-99) H 05/10/17 01:30 POC Glucose 223 (58-89) H 05/10/17 15:58 Hemoglobin A1c 9.1 % (-5.6) H 05/10/17 01:30 Calcium 7.7 mg/dL (8.6-10.8) L 05/10/17 01:30 Phosphorus 2.0 mg/dL (2.3-4.7) L 05/10/17 01:30 Alkaline Phosphatase 204 Units/L (38-126) H 05/09/17 19:01 Albumin 3.0 g/dL (3.5-5.0) L 05/09/17 19:01 Globulin 3.6 g/dL (2.4-3.5) H 05/09/17 19:01 Albumin/Globulin Ratio 0.8 (1.1-2.2) L 05/09/17 19:01 Beta-Hydroxybutyric Acd 0.40 mmol/L (0.02-0.27) H 05/09/17 19:01 Urine Clarity Turbid (Clear) A 05/09/17 19:40 Urine Protein >=1000 mg/dL (Neg-Trace) H 05/09/17 19:40 Urine Glucose (UA) 500 mg/dL (Normal) H 05/09/17 19:40 Urine Blood Moderate (Negative) H 05/09/17 19:40 Urine Bilirubin Small (Negative) H 05/09/17 19:40 Ur Leukocyte Esterase Large (Negative) H 05/09/17 19:40 Urine Microscopic WBC TNTC per hpf (0-3) H 05/09/17 19:40 Ur Squamous Epith Cells Many per lpf (None-Few) H 05/09/17 19:40 Urine Bacteria Many per hpf (None-Few) H 05/09/17 19:40 Ur Culture Indicated? YES (NO) A 05/09/17 19:40 All other labs normal. Consult Discharge Plan - Plan Referrals: NO,PCP [Primary Care Provider] -
[2017-05-10] MEDS: Isosorbide MONOnitrate (24 HR) 30 MG TAB.ER.24H PO SCH (20:39)
[2017-05-10] MEDS: Insulin DETEMIR 100 UNIT/ML X5UNITS SQ SCH (20:40)
[2017-05-10] MEDS: Gabapentin 300 MG CAPSULE PO SCH (20:40)
[2017-05-11] MEDS: *HR* Heparin 5,000 UNIT/ML VIAL SQ SCH ×2 (05:45→17:36)
[2017-05-11] MEDS: Metoprolol XL (24 HR) Succ 25 MG TAB.ER.24H PO SCH (08:24)
[2017-05-11] MEDS: Insulin LISPRO 300 UNITS/3 ML VIAL SQ SCH ×7 (08:24→21:39)
[2017-05-11] MEDS: Folic Acid 1 MG TABLET PO SCH (08:25)
[2017-05-11] MEDS: Aspirin 81 MG TAB.CHEW PO SCH (08:25)
[2017-05-11] MEDS: Sucralfate 1 GM TABLET PO SCH ×2 (08:25→15:37)
[2017-05-11 08:45] LABS: Calcium 8.4 mg/dL (8.6-10.8); Potassium 3.9 mEq/L (3.5-4.5)
[2017-05-11 09:11] LABS: Basophils # 0.1 K/mcL (0.0-0.2); Basophils % 0.8 %; Eosinophils # 0.3 K/mcL (0.0-0.6); Eosinophils % 4.5 %; Hematocrit 37.3 % (35.3-44.9); Hemoglobin 12.6 g/dL (11.5-15.4); Immature Granulocytes % 0.2 % (0-4); Lymphocytes # 1.9 K/mcL (0.6-4.6); Lymphocytes % 29.7 %; Mean Corpuscular HGB Conc 33.8 g/dL (31.6-35.5); Mean Corpuscular Hemoglobin 30.8 pg (28.0-33.3); Mean Corpuscular Volume 91.2 fL (83.0-100.0); Monocytes # 0.5 K/mcL (0.0-1.3); Monocytes % 7.3 %; Neutrophils # 3.6 K/mcL (1.6-8.9); Platelet Count 122 K/mcL (140-400); Red Blood Count 4.09 M/mcL (3.82-4.97); Red Cell Distribution Width 12.2 % (11.5-14.5); Segmented Neutrophils % 57.5 %
[2017-05-11 09:30] LABS: Calcium 8.7 mg/dL (8.6-10.8); Potassium 4.1 mEq/L (3.5-4.5)
--- NOTE | 2017-05-11 12:59 | Urology Progress Note ---
Date of Encounter: 05/11/17 Time of Encounter: 12:56 - Assessment and Plan (1) UTI (urinary tract infection) Current Visit: Yes Status: Acute Assessment and plan: I spoke with Dr Wu about the patient. we decided that because the patient is not febrile or septic appearing and her previous symptoms are resolving to observe without changing the stent. resolving her infections will be very difficult bc of her renal function and stent. I recommend treating with at least 2 weeks of omnicef 300 mg po bid (based on her culture) and follow with Jazmin in that time period. will discuss changing stent or even considering reimplant or nephrectomy to remove the stent. Qualifiers: Urinary tract infection type: site unspecified Hematuria presence: with hematuria Qualified Code(s): N39.0 - Urinary tract infection, site not specified; R31.9 - Hematuria, unspecified Progress Note Subjective: no new complaints Objective Initial Vital Signs Temp Pulse Resp BP Pulse Ox 98.9 F 67 18 160/84 95 05/09/17 16:39 05/09/17 16:39 05/09/17 16:39 05/09/17 16:39 05/09/17 16:39 - General physical appearance Present: no distress - Labs 05/11/17 08:40 05/11/17 08:40 Diabetes panel 05/11/17 05/11/17 Range/Units 06:20 08:40 Sodium 136 136 (136-145) mEq/L Potassium 3.9 4.1 (3.5-4.5) mEq/L Chloride 105 103 (98-109) mEq/L Carbon Dioxide 25 28 (19-29) mEq/L BUN 15 15 (7-20) mg/dL Creatinine 2.24 H 2.30 H (0.57-1.11) mg/dL Glucose 205 H 238 H (70-99) mg/dL Calcium 8.4 L 8.7 (8.6-10.8) mg/dL Calcium panel 05/11/17 05/11/17 Range/Units 06:20 08:40 Calcium 8.4 L 8.7 (8.6-10.8) mg/dL Pituitary panel 05/11/17 05/11/17 Range/Units 06:20 08:40 Sodium 136 136 (136-145) mEq/L Potassium 3.9 4.1 (3.5-4.5) mEq/L Chloride 105 103 (98-109) mEq/L Carbon Dioxide 25 28 (19-29) mEq/L BUN 15 15 (7-20) mg/dL Creatinine 2.24 H 2.30 H (0.57-1.11) mg/dL Glucose 205 H 238 H (70-99) mg/dL Calcium 8.4 L 8.7 (8.6-10.8) mg/dL Adrenal panel 05/11/17 05/11/17 Range/Units 06:20 08:40 Sodium 136 136 (136-145) mEq/L Potassium 3.9 4.1 (3.5-4.5) mEq/L Chloride 105 103 (98-109) mEq/L Carbon Dioxide 25 28 (19-29) mEq/L BUN 15 15 (7-20) mg/dL Creatinine 2.24 H 2.30 H (0.57-1.11) mg/dL Glucose 205 H 238 H (70-99) mg/dL Calcium 8.4 L 8.7 (8.6-10.8) mg/dL Consult Discharge Plan - Plan Referrals: Bartolo Washburn MD [Primary Care Provider] - (web request sent on 05/11/17)
--- NOTE | 2017-05-11 17:07 | Internal Med Progress Note ---
<Raymond Alvarado - Last Filed: 05/11/17 16:59> Date of Encounter: 05/11/17 Time of Encounter: 10:00 - Assessment and plan (1) UTI (urinary tract infection) Current Visit: Yes Status: Acute Assessment and plan: Urine culture was positive for Klebsiella pneumoniae. She has had recurrent UTIs multiple organisms resistant to fluoroquinolones. -Complicated UTI secondary due to in-dwelling, stent -Continue Ceftriaxone. -Consult nephrology for Pneumaturia, possibly from procedure, also possibly from active urinary tract infection -However, patient with concerns for air coming from her vagina. -Gynecology has been consulted. Gynecology states that since patient has had a hysterectomy in the past, they have nothing to contribute to this diagnosis. They state that if there is a concern about a possible fistula, but this can be handled by urology. Qualifiers: Urinary tract infection type: site unspecified Hematuria presence: with hematuria Qualified Code(s): N39.0 - Urinary tract infection, site not specified; R31.9 - Hematuria, unspecified (2) Pneumaturia Current Visit: Yes Status: Acute Assessment and plan: Air in the bladder is possibly secondary to long-standing catheter or secondary to procedure. -Patient initially complained of what she felt to be air coming from her vagina , so gynecology was consulted. -Gynecology states that since patient has had hysterectomy in the past, that this problem can be handled by urology. (3) Diabetes mellitus Current Visit: Yes Status: Chronic Assessment and plan: A1C 9.1% Monitor FS ACHS Continue insulin ADA diet, advance diet Qualifiers: Diabetes mellitus type: type 2 Diabetes mellitus complication status: with circulatory complication Diabetes mellitus complication detail: with other circulatory complications Diabetes mellitus long term care social worker insulin use: with long term care social worker use Qualified Code(s): E11.59 - Type 2 diabetes mellitus with other circulatory complications; Z79.4 - care home (current) use of insulin (4) ESRD needing dialysis Current Visit: Yes Status: Chronic Assessment and plan: Patient's creatinine is elevated but near baseline. -This morning it was 1.69. -She has no signs of fluid overload. -Patient is bridging for a renal transplant in [place]. -Consult nephrology routinely for hemodialysis. (5) CAD (coronary artery disease) of artery bypass graft Current Visit: Yes Status: Acute Assessment and plan: Patient currently denies having any chest pain. -Initial troponin was negative, does have anginal equivalent given her nausea and vomiting, especially in the setting of diabetes. -We will continue to monitor vitals. -Continue home aspirin and Plavix, Lipitor, Toprol. Qualifiers: Qualified Code(s): I25.810 - Atherosclerosis of coronary artery bypass graft( s) without angina pectoris (6) Hypokalemia Current Visit: Yes Status: Acute Assessment and plan: Patient's potassium this morning was 3.0. -We will replace. -Continue to monitor. (7) Nausea and vomiting Current Visit: Yes Status: Acute Assessment and plan: Initially presented to the hospital with nausea and vomiting, possibly secondary to her UTI. -She also has uncontrolled diabetes possibly leading to gastroparesis. -Antiemetics were administered. -She currently denies having any nausea or vomiting or diarrhea. -Electrolytes will be replenished as needed. -Patient has been hypokalemic. -Advance diet as tolerated. Qualifiers: Vomiting type: unspecified Vomiting Intractability: unspecified Qualified Code(s): R11.2 - Nausea with vomiting, unspecified (8) Coronary artery disease Current Visit: Yes Status: Chronic Assessment and plan: Patient is not experiencing any chest pain at this time. She does have an anginal equivalent given her nausea and vomiting in the setting of diabetes. Continue home meds: Aspirin, Plavix, Lipitor, Toprol. Qualifiers: Coronary Disease-Associated Artery/Lesion type: unspecified vessel or lesion type [place] vs. transplanted heart: [place] heart Associated angina: angina presence unspecified Qualified Code(s): I25.10 - Atherosclerotic heart disease of [place] coronary artery without angina pectoris - Subjective Interval history: Patient was seen and examined at bedside this morning. She states that she does not have the same nausea and vomiting that she had upon admission to the hospital. She denies having diarrhea this morning. She states that she has been taking antidiarrheal medications which have helped. She does admit to having some mid epigastric pain as well as abdominal pain in both the right lower quadrant and left lower quadrant. This pain radiates into her back. It is been going on for the last three weeks. She describes it as an intermittent sharp, stabbing pain. Sometimes this pain also feels like a cramp. He states that she has had her gallbladder removed. No aggravating or relieving symptoms identified. Pain is exacerbated by palpation. She denies nausea, vomiting, fever, chills, diarrhea, or constipation. - Constitutional Vitals: Temp Pulse Resp BP Pulse Ox 97.9 F 67 18 156/66 93 05/11/17 15:09 05/11/17 15:09 05/11/17 15:09 05/11/17 15:09 05/11/17 15:09 General appearance: Present: cooperative, A&O X 3, pleasant, no acute distress, obese, answers questions appropriately - Respiratory Respiratory exam: Present: CTAB. Absent: accessory muscle use, rales, rhonchi, wheezes - Cardiovascular Cardiovascular exam: Present: RRR, +S1, +S2. Absent: diastolic murmur, gallop, rubs, systolic murmur - GI/Abdominal GI/Abdominal exam: Present: normal bowel sounds, soft, tenderness Additional comments: Patient has tenderness in both right lower quadrant and left lower quadrant, describes this pain as a periodic, sharp pain. She also has pain in her back. - Skin Skin exam: Present: dry, intact Internal Medicine: Result - Labs CBC & Chem 7: 05/11/17 08:40 05/11/17 08:40 Labs: Short CBC 05/11/17 Range/Units 08:40 WBC 6.3 (4.3-11.1) K/mcL Hgb 12.6 (11.5-15.4) g/dL Hct 37.3 (35.3-44.9) % Plt Count 122 L (140-400) K/mcL Neutrophils # 3.6 (1.6-8.9) K/mcL BMP 05/11/17 05/11/17 06:20 08:40 Sodium 136 136 Potassium 3.9 4.1 Chloride 105 103 Carbon Dioxide 25 28 BUN 15 15 Creatinine 2.24 H 2.30 H Glucose 205 H 238 H Calcium 8.4 L 8.7 Consult Discharge Plan - Plan Referrals: Bartolo Washburn MD [Primary Care Provider] - 05/16/17 1:15 pm () <Shane Teixeira - Last Filed: 05/11/17 17:51> Date of Encounter: 05/11/17 - Assessment and plan (1) UTI (urinary tract infection) Current Visit: Yes Status: Acute Qualifiers: Urinary tract infection type: site unspecified Hematuria presence: with hematuria Qualified Code(s): N39.0 - Urinary tract infection, site not specified; R31.9 - Hematuria, unspecified (2) Peripheral arterial disease Current Visit: Yes Status: Chronic (3) Coronary artery disease Current Visit: Yes Status: Chronic Qualifiers: Coronary Disease-Associated Artery/Lesion type: unspecified vessel or lesion type [place] vs. transplanted heart: [place] heart Associated angina: angina presence unspecified Qualified Code(s): I25.10 - Atherosclerotic heart disease of [place] coronary artery without angina pectoris (4) Diabetes mellitus Current Visit: Yes Status: Chronic Qualifiers: Diabetes mellitus type: type 2 Diabetes mellitus complication status: with circulatory complication Diabetes mellitus complication detail: with other circulatory complications Diabetes mellitus senior living insulin use: with senior living use Qualified Code(s): E11.59 - Type 2 diabetes mellitus with other circulatory complications; Z79.4 - care home (current) use of insulin (5) GERD (gastroesophageal reflux disease) Current Visit: Yes Status: Chronic Qualifiers: Esophagitis presence: esophagitis presence not specified Qualified Code(s) : K21.9 - Gastro-esophageal reflux disease without esophagitis (6) Hypokalemia Current Visit: Yes Status: Acute (7) ESRD needing dialysis Current Visit: Yes Status: Chronic - Constitutional Vitals: Temp Pulse Resp BP Pulse Ox 97.9 F 67 18 156/66 93 05/11/17 15:09 05/11/17 15:09 05/11/17 15:09 05/11/17 15:09 05/11/17 15:09 Internal Medicine: Result - Labs CBC & Chem 7: 05/11/17 08:40 05/11/17 08:40 Labs: Short CBC 05/11/17 Range/Units 08:40 WBC 6.3 (4.3-11.1) K/mcL Hgb 12.6 (11.5-15.4) g/dL Hct 37.3 (35.3-44.9) % Plt Count 122 L (140-400) K/mcL Neutrophils # 3.6 (1.6-8.9) K/mcL BMP 05/11/17 05/11/17 06:20 08:40 Sodium 136 136 Potassium 3.9 4.1 Chloride 105 103 Carbon Dioxide 25 28 BUN 15 15 Creatinine 2.24 H 2.30 H Glucose 205 H 238 H Calcium 8.4 L 8.7 - Attending Attestation I examined this patient and my medical decision-making was reviewed with the Resident Physician on 05/11/17. I agree with the documented findings, disposition and treatment plan as described except to the extent set forth below. 66 F with ESRD on HD/Transplant list, admitted and being managed for complicated Klebsiella UTI with indwelling ureteral stent. She reports improvement this morning, is actively following. She is not sure if she passes gas with urination or if she is passing air per vagina. She will prefer a CORRECTIONAL COUNSELOR/CASE MANAGER eval, will oblige. She has no history of trauma nor is she sexually active, no abnormal discharge. Physical exam is unremarkable, no CVA tenderness Labs and Imaging reviewed. eval noted, continue antibiotics, no plan for stent exchange in-patient. Patient may be discharged home tomorrow if clinically stable and after CORRECTIONAL COUNSELOR/CASE MANAGER evaluation Rest of details as in residents documentation.
--- NOTE | 2017-05-11 18:01 | Nephrology Consult Note ---
Date of Encounter: 05/11/17 Time of Encounter: 10:00 History of Present Illness - Reason for Consult Consult date: 05/11/17 end stage renal disease Requesting physician: Shane Teixeira Past Med Surg Social Fam HX - Past Medical History Medical history: dialysis, other Psychiatric history: no psych history - Past Surgical History Surgical History: appendectomy, cholecystectomy, coronary bypass (CABG), ureteral stent, other - Social History Smoking Status: Never smoker Smokeless Tobacco Status: No Alcohol use: none Drug use: none - Family History Mother Living Status: Hx Family Endocrine Disorder: (DM) Father Hx Family Cardiac Disorders: Yes ("heart troubles") Hx Family Endocrine Disorder: Yes (DM) Medications and Allergies Amitriptyline [Elavil] 25 mg PO HS 07/10/15 [History] Cyclobenzaprine [Flexeril] 10 mg PO QAM 07/10/15 [History] Duloxetine [Cymbalta] 30 mg PO QAM 07/10/15 [History] Ergocalciferol (VITAMIN D2) [Vitamin D2 (50,000 UNIT)] 50,000 unit PO MO [History] Folic Acid 1 mg PO DAILY 07/10/15 [History] Insulin ASPART [NovoLOG] 10 unit SQ BID 07/10/15 [History] Levothyroxine [Synthroid] 50 mcg PO QAM 07/10/15 [History] OxyCODONE/APAP 5/325 [Percocet 5/325] 1 tab PO DAILY PRN 07/10/15 [History] Pantoprazole Sodium [Protonix] 40 mg PO BID 07/10/15 [History] Solifenacin Succinate [Vesicare] 10 mg PO DAILY 07/10/15 [History] Tamsulosin [Flomax] 0.4 mg PO DAILY 07/10/15 [History] Zolpidem [Ambien] 10 mg PO HS 07/10/15 [History] Aspirin 81 mg PO DAILY #30 tab.chew 02/18/16 [Rx] Metoprolol XL (24 HR) Succ [Toprol Xl] 12.5 mg PO DAILY #30 tab.er.24h 02/18/16 [Rx] Gabapentin 300 mg PO HS 04/15/16 [History] Docusate [Colace] 100 mg PO BID 10/14/16 [History] Isosorbide MONOnitrate (24 HR) [Imdur] 30 mg PO HS 10/14/16 [History] Albuterol Sulfate [Proair Hfa] 2 puff IH Q4H PRN 03/17/17 [History] Atorvastatin [Lipitor] 40 mg PO HS 03/17/17 [History] Insulin DETEMIR [Levemir] 10 unit SQ BID 03/17/17 [History] OxyCODONE/APAP 5/325 [Percocet 5/325 MG] 2 tab PO HS PRN 03/17/17 [History] Promethazine [Phenergan] 25 mg PO Q8HR PRN 03/17/17 [History] Ranitidine HCl [Heartburn Relief] 150 mg PO BID 03/17/17 [History] SUMAtriptan [Imitrex] 6 mg SQ BID PRN 03/17/17 [History] Clopidogrel [Plavix] 75 mg PO DAILY 05/09/17 [History] Cranberry Fruit Extract/Vit C [Azo Cranberry Softgel] 1 each PO DAILY 05/09/17 [ History] Ferrous Sulfate 325 mg PO DAILY 05/09/17 [History] Ondansetron ODT [Zofran ODT] 4 mg PO Q8H PRN 05/09/17 [History] Pramipexole Di-HCl [Pramipexole Dihydrochloride] 0.125 mg PO HS 05/09/17 [ History] Sucralfate [Carafate] 1 gm PO 0730,1630 05/09/17 [History] Allergies adhesive tape Allergy (Verified 05/08/17 10:47) Redness of Skin latex Allergy (Verified 05/08/17 10:47) Swelling of Lip/Tongue/Throat negative test Sulfa (Sulfonamide Antibiotics) Allergy (Verified 05/08/17 10:47) Rash Exam - Vital Signs Vital signs: Initial Vital Signs Temp Pulse Resp BP Pulse Ox 98.9 F 67 18 160/84 95 05/09/17 16:39 05/09/17 16:39 05/09/17 16:39 05/09/17 16:39 05/09/17 16:39 Vital Signs - Last 8 Hours Temp Pulse Resp BP Pulse Ox 05/11/17 15:09 97.9 F 67 18 156/66 93 05/11/17 10:49 98.0 F 62 18 117/62 95 Intake and Output 05/11/17 05/11/17 05/11/17 07:59 15:59 23:59 Intake Total 1350 / 1350 580 / 580 480 / 480 Balance 1350 / 1350 580 / 580 480 / 480 Intake: IV Fluids 1000 / 1000 100 / 100 0.9 % Sodium Chloride 1, 1000 / 1000 000 ML @ 80 mls/hr IVC . [id number] [facility] Rx#: [id number] Rocephin 1,000 MG In 100 / 100 Dextrose 5% (Minibag+) 100 ML 100 ML @ 200 mls/ hr IVPB DAILY [facility] Rx#: [id number] Oral 350 / 350 480 / 480 480 / 480 Other: Meal Lunch Dinner Percent of Meal Consumed 50% 100% # Voids 1 Weight 90.4 kg Blood Glucose* 176 75 Patient Weight 05/11/17 23:59 Weight 90.4 kg Results - Lab Results 05/11/17 08:40 05/11/17 08:40 Most recent lab results Calcium 8.7 mg/dL (8.6-10.8) 05/11/17 08:40 Phosphorus 2.0 mg/dL (2.3-4.7) L 05/10/17 01:30 Magnesium 1.8 mg/dL (1.6-2.6) 05/10/17 01:30 Consult Discharge Plan - Plan Referrals: Bartolo Washburn MD [Primary Care Provider] - 05/16/17 1:15 pm ()
[2017-05-11] MEDS ORDERED: Insulin DETEMIR 100 UNIT/ML X5UNITS SQ SCH (21:00)
[2017-05-11] MEDS: Gabapentin 300 MG CAPSULE PO SCH (21:34)
[2017-05-11] MEDS: Isosorbide MONOnitrate (24 HR) 30 MG TAB.ER.24H PO SCH (21:34)
[2017-05-12 06:10] LABS: Basophils % 0.4 %; Eosinophils # 0.3 K/mcL (0.0-0.6); Eosinophils % 3.6 %; Hematocrit 35.5 % (35.3-44.9); Hemoglobin 11.7 g/dL (11.5-15.4); Immature Granulocytes % 0.1 % (0-4); Lymphocytes # 1.7 K/mcL (0.6-4.6); Lymphocytes % 23.8 %; Mean Corpuscular Hemoglobin 30.6 pg (28.0-33.3); Mean Corpuscular Volume 92.9 fL (83.0-100.0); Mean Platelet Volume 12.1 fL (9.4-12.4); Monocytes # 0.5 K/mcL (0.0-1.3); Monocytes % 7.5 %; Neutrophils # 4.5 K/mcL (1.6-8.9); Platelet Count 118 K/mcL (140-400); Red Blood Count 3.82 M/mcL (3.82-4.97); Red Cell Distribution Width 12.4 % (11.5-14.5); Segmented Neutrophils % 64.6 %
[2017-05-12] MEDS: *HR* Heparin 5,000 UNIT/ML VIAL SQ SCH (06:14)
[2017-05-12 06:28] LABS: Calcium 8.7 mg/dL (8.6-10.8); Potassium 4.8 mEq/L (3.5-4.5)
[2017-05-12] MEDS ORDERED: Sennosides/Docusate Sodium TABLET PO SCH (09:00)
[2017-05-12] MEDS ORDERED: Metoprolol XL (24 HR) Succ 25 MG TAB.ER.24H PO SCH (09:00)
[2017-05-12] MEDS: Folic Acid 1 MG TABLET PO SCH (09:01)
[2017-05-12] MEDS: Sucralfate 1 GM TABLET PO SCH (09:01)
[2017-05-12] MEDS: Insulin LISPRO 300 UNITS/3 ML VIAL SQ SCH ×4 (09:01→12:20)
[2017-05-12] MEDS: Aspirin 81 MG TAB.CHEW PO SCH (09:01)
--- NOTE | 2017-05-12 12:18 | Nephrology Progress Note ---
Date of Encounter: 05/12/17 Time of Encounter: 12:15 - Assessment and Plan (1) ESRD needing dialysis Current Visit: Yes Status: Chronic If discharged today, will have out-patient dialysis tomorrow at [facility] To take her 24 hour urine to dialysis center to be sent to lab tomorrow; nurse at [facility] notified. (2) UTI (urinary tract infection) Current Visit: Yes Status: Acute per urology team Qualifiers: Urinary tract infection type: site unspecified Hematuria presence: without hematuria Qualified Code(s): N39.0 - Urinary tract infection, site not specified (3) Nausea & vomiting Current Visit: No Status: Acute Improved Qualifiers: Vomiting type: unspecified Vomiting Intractability: unspecified Qualified Code(s): R11.2 - Nausea with vomiting, unspecified Subjective Principal diagnosis: UTI, Vomiting, ESRD on dialysis Interval history: Patient seen and examined. Feeling much better, sitting up eating breakfast. Objective - Vital Signs Vital signs: Vital Signs Temp Pulse Resp BP Pulse Ox 05/12/17 11:47 98.9 F 69 13 181/76 95 05/12/17 07:36 98.8 F 69 13 187/61 92 05/11/17 23:41 97.7 F 67 16 164/79 95 05/11/17 19:05 98.1 F 66 20 135/71 93 05/11/17 15:09 97.9 F 67 18 156/66 93 Intake and Output 05/11/17 05/12/17 05/12/17 23:59 07:59 15:59 Intake Total 480 / 480 220 / 220 Output Total 200 / 200 300 / 300 Balance 480 / 480 -200 / -200 -80 / -80 Intake: IV Fluids 100 / 100 Rocephin 1,000 MG In 100 / 100 Dextrose 5% (Minibag+) 100 ML 100 ML @ 200 mls/ hr IVPB DAILY [facility] Rx#: [id number] Oral 480 / 480 120 / 120 Output: Urine 200 / 200 300 / 300 Other: Meal Dinner Breakfast Percent of Meal Consumed 100% 100% Weight 90.7 kg Blood Glucose* 111 251 74 Patient Weight 05/12/17 23:59 Weight 90.7 kg - General Appearance General appearance: Present: well-developed, well-nourished EENT: Present: ATNC, mucous membranes moist, hearing intact, vision intact Neck: Present: supple Respiratory: Present: clear Cardiology: Present: no edema, normal S1, normal S2 Dialysis Vascular Access: Arteriovenous Fistula Gastrointestinal: Present: no tenderness, no guarding Integumentary: Present: warm and dry Neurologic: Present: alert and oriented x3 Psychiatric: Present: mood/affect appropriate, cooperative - Lab 05/12/17 03:57 05/12/17 03:57 Most recent lab results Calcium 8.7 mg/dL (8.6-10.8) 05/12/17 03:57 Phosphorus 2.0 mg/dL (2.3-4.7) L 05/10/17 01:30 Magnesium 1.8 mg/dL (1.6-2.6) 05/10/17 01:30 Consult Discharge Plan - Plan Referrals: Bartolo Washburn MD [Primary Care Provider] - 05/16/17 1:15 pm ()
--- NOTE | 2017-05-12 14:01 | Urology Progress Note ---
Date of Encounter: 05/12/17 Time of Encounter: 14:00 - Assessment and Plan (1) UTI (urinary tract infection) Current Visit: Yes Status: Acute Assessment and plan: continue current regimen. will schedule f/u in 2-3 weeks. Qualifiers: Urinary tract infection type: site unspecified Hematuria presence: without hematuria Qualified Code(s): N39.0 - Urinary tract infection, site not specified Progress Note Narrative: Patient seen. feeling better. Objective Initial Vital Signs Temp Pulse Resp BP Pulse Ox 98.9 F 67 18 160/84 95 05/09/17 16:39 05/09/17 16:39 05/09/17 16:39 05/09/17 16:39 05/09/17 16:39 - General physical appearance Present: well developed - Abdomen Present: soft - Labs 05/12/17 03:57 05/12/17 03:57 Diabetes panel 05/11/17 05/12/17 Range/Units 18:34 03:57 Sodium 135 L (136-145) mEq/L Potassium 4.8 H (3.5-4.5) mEq/L Chloride 105 (98-109) mEq/L Carbon Dioxide 25 (19-29) mEq/L BUN 24 H (7-20) mg/dL Creatinine 2.75 H 2.82 H (0.57-1.11) mg/dL Glucose 272 H (70-99) mg/dL Calcium 8.7 (8.6-10.8) mg/dL Calcium panel 05/12/17 Range/Units 03:57 Calcium 8.7 (8.6-10.8) mg/dL Pituitary panel 05/11/17 05/12/17 Range/Units 18:34 03:57 Sodium 135 L (136-145) mEq/L Potassium 4.8 H (3.5-4.5) mEq/L Chloride 105 (98-109) mEq/L Carbon Dioxide 25 (19-29) mEq/L BUN 24 H (7-20) mg/dL Creatinine 2.75 H 2.82 H (0.57-1.11) mg/dL Glucose 272 H (70-99) mg/dL Calcium 8.7 (8.6-10.8) mg/dL Adrenal panel 05/11/17 05/12/17 Range/Units 18:34 03:57 Sodium 135 L (136-145) mEq/L Potassium 4.8 H (3.5-4.5) mEq/L Chloride 105 (98-109) mEq/L Carbon Dioxide 25 (19-29) mEq/L BUN 24 H (7-20) mg/dL Creatinine 2.75 H 2.82 H (0.57-1.11) mg/dL Glucose 272 H (70-99) mg/dL Calcium 8.7 (8.6-10.8) mg/dL Consult Discharge Plan - Plan Referrals: Heath Wu MD [Partnered Physician] - Bartolo Washburn MD [Primary Care Provider] - 05/16/17 1:15 pm ()
--- NOTE | 2017-05-12 14:21 | Discharge Summary ---
<Raymond Alvarado - Last Filed: 05/12/17 16:26> Date of Encounter: 05/12/17 Time of Encounter: 10:15 - Discharge Diagnosis (1) UTI (urinary tract infection) Priority: Primary Status: Acute Comments: Urine culture was positive for Klebsiella pneumonia. -She has recurrent UTIs with multiple organisms resistant to fluroquinolones. -Complicated UTI secondary to stent. -Nephrology was consulted for pneumaturia, which was possibly a result of her procedure. -Patient will complete 14 days of Omnicef. Nephrology has stated the patient has transport and complete her 24-hour urine collection as an outpatient. Qualifiers: Urinary tract infection type: site unspecified Hematuria presence: without hematuria Qualified Code(s): N39.0 - Urinary tract infection, site not specified (2) Pneumaturia Priority: Secondary Status: Acute Comments: Air in her bladder is possibly secondary to long-standing catheter or secondary to a procedure. -Patient initially complained of what she felt to be coming from her vagina, so gynecology was consulted. -Gynecology has stated since the patient has had a hysterectomy in the past month that this problem would be handled by urology. -Urology status that patient can be discharged. Patient will be given 2 weeks of Omnicef 300 mg by mouth twice a day. We will discuss changing of her stent. (3) Diabetes mellitus Priority: Secondary Status: Chronic Comments: Patient's hemoglobin A1c was 9.1%. Qualifiers: Diabetes mellitus type: type 2 Diabetes mellitus complication status: with circulatory complication Diabetes mellitus complication detail: with other circulatory complications Diabetes mellitus parts counterman insulin use: with parts counterman use Qualified Code(s): E11.59 - Type 2 diabetes mellitus with other circulatory complications; Z79.4 - skilled nursing (current) use of insulin (4) ESRD needing dialysis Priority: Secondary Status: Chronic Comments: His creatinine is elevated, 2.82. Patient has no signs of fluid overload. Patient is bridging for renal transplant in [place]. (5) CAD (coronary artery disease) of artery bypass graft Priority: Secondary Status: Acute Comments: Continue home aspirin and Plavix, Lipitor, Toprol. Qualifiers: Associated angina: angina presence unspecified Qualified Code(s): I25.810 - Atherosclerosis of coronary artery bypass graft(s) without angina pectoris (6) Hypokalemia Priority: Secondary Status: Acute Comments: Yesterday, patient's potassium was 3.0. Today it is 4.8. (7) Nausea and vomiting Priority: Secondary Status: Acute Comments: Patient has not complained of nausea and vomiting since after her admission. -She denies having any GI distress, any change in bowel habits, but does state that she still has some abdominal pain. -This abdominal pain is located in the left lower quadrant and right lower quadrant, and is worse with palpation. -CT scan of the abdomen did not reveal any acute changes in her abdomen. Qualifiers: Vomiting type: unspecified Vomiting Intractability: unspecified Qualified Code(s): R11.2 - Nausea with vomiting, unspecified - Discharge Medications Prescriptions: Ampicillin Trihydrate 500 mg PO Q6H #20 capsule Cefdinir [Omnicef] 300 mg PO BID #28 capsule Home Medications: Amitriptyline [Elavil] 25 mg PO HS 07/10/15 [History] Cyclobenzaprine [Flexeril] 10 mg PO QAM 07/10/15 [History] Duloxetine [Cymbalta] 30 mg PO QAM 07/10/15 [History] Ergocalciferol (VITAMIN D2) [Vitamin D2 (50,000 UNIT)] 50,000 unit PO MO [History] Folic Acid 1 mg PO DAILY 07/10/15 [History] Insulin ASPART [NovoLOG] 10 unit SQ BID 07/10/15 [History] Levothyroxine [Synthroid] 50 mcg PO QAM 07/10/15 [History] OxyCODONE/APAP 5/325 [Percocet 5/325] 1 tab PO DAILY PRN 07/10/15 [History] Pantoprazole Sodium [Protonix] 40 mg PO BID 07/10/15 [History] Solifenacin Succinate [Vesicare] 10 mg PO DAILY 07/10/15 [History] Tamsulosin [Flomax] 0.4 mg PO DAILY 07/10/15 [History] Zolpidem [Ambien] 10 mg PO HS 07/10/15 [History] Aspirin 81 mg PO DAILY #30 tab.chew 02/18/16 [Rx] Metoprolol XL (24 HR) Succ [Toprol Xl] 12.5 mg PO DAILY #30 tab.er.24h 02/18/16 [Rx] Gabapentin 300 mg PO HS 04/15/16 [History] Docusate [Colace] 100 mg PO BID 10/14/16 [History] Isosorbide MONOnitrate (24 HR) [Imdur] 30 mg PO HS 10/14/16 [History] Albuterol Sulfate [Proair Hfa] 2 puff IH Q4H PRN 03/17/17 [History] Atorvastatin [Lipitor] 40 mg PO HS 03/17/17 [History] Insulin DETEMIR [Levemir] 10 unit SQ BID 03/17/17 [History] OxyCODONE/APAP 5/325 [Percocet 5/325 MG] 2 tab PO HS PRN 03/17/17 [History] Promethazine [Phenergan] 25 mg PO Q8HR PRN 03/17/17 [History] Ranitidine HCl [Heartburn Relief] 150 mg PO BID 03/17/17 [History] SUMAtriptan succinate [Imitrex] 6 mg SQ BID PRN 03/17/17 [History] Clopidogrel [Plavix] 75 mg PO DAILY 05/09/17 [History] Cranberry Fruit Extract/Vit C [Azo Cranberry Softgel] 1 each PO DAILY 05/09/17 [ History] Ferrous Sulfate 325 mg PO DAILY 05/09/17 [History] Ondansetron ODT [Zofran ODT] 4 mg PO Q8H PRN 05/09/17 [History] Pramipexole Di-HCl [Pramipexole Dihydrochloride] 0.125 mg PO HS 05/09/17 [ History] Sucralfate [Carafate] 1 gm PO 0730,1630 05/09/17 [History] Ampicillin Trihydrate 500 mg PO Q6H #20 capsule 05/12/17 [Rx] Cefdinir [Omnicef] 300 mg PO BID #28 capsule 05/12/17 [Rx] Allergies/Adverse Reactions: Allergies adhesive tape Allergy (Verified 05/08/17 10:47) Redness of Skin latex Allergy (Verified 05/08/17 10:47) Swelling of Lip/Tongue/Throat negative test Sulfa (Sulfonamide Antibiotics) Allergy (Verified 05/08/17 10:47) Rash Date of admission: 05/10/17 06:38 Primary care physician: Bartolo Washburn MD Consults: 05/10/17 15:31 Consult to Nephrology [CONS] Routine Consulting Provider: Kidney Julianne/FLORENTIN/KIERRA/PEACE Reason for Consult: ESRD, knwon to your team, for resumption of HD Call Completed: No 05/11/17 17:18 Consult to SUPERANNUATION CLERK [CONS] Routine Consulting Provider: AIRCRAFT SYSTEMS REPAIRER Julianne Reason for Consult: Patient with pneumouria complains of air coming from vagina Call Completed: Yes Discharging clinician: Raymond Alvarado Anticipated date of discharge: 05/12/17 - Patient Status Disposition: Home, Self-Care Condition: Good Overall status at discharge: patient is progressing back to baseline - Discharge Instructions Instructions: Cefdinir (By mouth), Urinary Tract Infection in Women (DC), Chronic Kidney Disease (DC), Diabetes Mellitus Type 2 in Adults (DC), 24 Hour Urine Collection (GEN), Chronic Hypertension (GEN) Follow Up With: Heath Wu MD [Partnered Physician] - 05/26/17 9:30 am (Please follow up as schedule...) Bartolo Washburn MD [Primary Care Provider] - 05/16/17 1:15 pm () - Diet and Activity Activity: resume usual activities as tolerated Diet: advance to your usual diet Hospital course: Ms. Dan is a 66 year old female who presented to the ED complaining of nausea and vomiting. She states that her symptoms began approximately 3 weeks ago, and were accompanied by diarrhea. She had taken several antidiarrheal medications, which were effective. She also states that she has some mid epigastric and lower abdominal pain, in both right lower and left lower quadrants. She also admits to having some suprapubic tenderness. No aggravating or relieving eating factors were noted. Patient had a CT scan of her abdomen and pelvis. CT scan did not reveal any acute changes in the abdomen or the bowel. However, pelvic CT revealed air present in the urinary bladder. This was possibly secondary to a procedure or an infection. No free fluid was present in the pelvis. Patient initially complained of the sensation of air coming from her vagina. Gynecology was consulted for this. They stated that since patient has had a hysterectomy in the past, it would not need to follow her. During her stay, patient had hypokalemia, possibly secondary to her vomiting. Potassium was replaced, and on discharge her potassium is 4.8. Patient's nausea and vomiting improved during the course of her stay. Patient denied having any nausea or vomiting or GI distress this morning. Patient was diagnosed with a UTI in the hospital. Urine culture was obtained, and revealed Klebsiella pneumonia. Patient will be given 2 weeks of Omnicef 300 mg by mouth BID. Possible changing of stent has been discussed with patient. - Time Spent with Patient Total time spent providing and/or coordinating discharge services: Greater than 30 minutes - Constitutional Vitals: Temp Pulse Resp BP Pulse Ox 98.9 F 69 13 181/76 95 05/12/17 11:47 05/12/17 11:47 05/12/17 11:47 05/12/17 11:47 05/12/17 11:47 General appearance: Present: cooperative, A&O X 3, pleasant, no acute distress, obese, answers questions appropriately - Head Head exam: Present: atraumatic, normocephalic - Neck Neck exam general surgery: Present: supple, trachea midline. Absent: lymphadenopathy - Respiratory Respiratory exam: Present: CTAB. Absent: accessory muscle use, rales, rhonchi, wheezes - Cardiovascular Cardiovascular exam: Present: RRR, +S1, +S2. Absent: diastolic murmur, gallop, rubs, systolic murmur - GI/Abdominal GI/Abdominal exam: Present: normal bowel sounds, soft, tenderness, no peritoneal signs. Absent: distended Additional comments: Patient has tenderness in the epigastric area, in the right lower quadrant, and left lower quadrant. She also admits to having some suprapubic tenderness. This tenderness is exacerbated upon palpation. CT scan did not show any acute changes in the abdomen. - Extremities Exam Extremities exam: Present: warm, radial pulses palpable and symetrical. Absent : calf tenderness, cyanotic, pedal edema - Skin Skin exam: Present: dry, intact <Shane Teixeira T - Last Filed: 05/12/17 17:17> Date of Encounter: 05/12/17 - Discharge Diagnosis (1) UTI (urinary tract infection) Status: Acute Qualifiers: Urinary tract infection type: site unspecified Hematuria presence: without hematuria Qualified Code(s): N39.0 - Urinary tract infection, site not specified (2) Peripheral arterial disease Status: Chronic (3) Coronary artery disease Status: Chronic Qualifiers: Coronary Disease-Associated Artery/Lesion type: unspecified vessel or lesion type [place] vs. transplanted heart: red devil heart Associated angina: angina presence unspecified Qualified Code(s): I25.10 - Atherosclerotic heart disease of [place] coronary artery without angina pectoris (4) Diabetes mellitus Status: Chronic Qualifiers: Diabetes mellitus type: type 2 Diabetes mellitus complication status: with circulatory complication Diabetes mellitus complication detail: with other circulatory complications Diabetes mellitus usp insulin use: with parts counterman use Qualified Code(s): E11.59 - Type 2 diabetes mellitus with other circulatory complications; Z79.4 - skilled nursing (current) use of insulin (5) GERD (gastroesophageal reflux disease) Status: Chronic Qualifiers: Esophagitis presence: esophagitis presence not specified Qualified Code(s) : K21.9 - Gastro-esophageal reflux disease without esophagitis (6) Hypokalemia Status: Acute (7) ESRD needing dialysis Status: Chronic Date of admission: 05/10/17 06:38 Primary care physician: Bartolo Washburn MD Consults: 05/10/17 15:31 Consult to Nephrology [CONS] Routine Consulting Provider: Kidney Julianne/FLORENTIN/KIERRA/PEACE Reason for Consult: ESRD, knwon to your team, for resumption of HD Call Completed: No 05/11/17 17:18 Consult to SUPERANNUATION CLERK [CONS] Routine Consulting Provider: AIRCRAFT SYSTEMS REPAIRER Julianne Reason for Consult: Patient with pneumouria complains of air coming from vagina Call Completed: Yes Hospital course: Ms. Dan is a 66 year old female - Time Spent with Patient Total time spent providing and/or coordinating discharge services: - Constitutional Vitals: Temp Pulse Resp BP Pulse Ox 98.9 F 63 13 173/73 95 05/12/17 11:47 05/12/17 15:53 05/12/17 11:47 05/12/17 15:53 05/12/17 11:47 - Attending Attestation I examined this patient and my medical decision-making was reviewed with the Resident Physician on 05/12/17. I agree with the documented findings, disposition and treatment plan as described except to the extent set forth below. Patient was admitted for emphysematous UTI, complicated due to recurrent UTIs and indwelling ureteric stent. causative organism is garcia-sensitive Klebsiella pneumonia, She is seen and evaluated at bedside this morning, with no new complains she has remarkable improvement Physical exam is unremarkable Labs and Imaging reviewed, and at baseline. Patient is stable to be discharged back to home on oral antibiotics, for complete 14 days, follow up with for stent revision and possible replacement , Renal for 24 hr urine evaluation and management of ESRD,. No intervention necessary per TUBER OPERATOR. Rest of details as in residents documentation
[2017-05-12 15:54] VITALS: BP 173/73
[2017-05-12] MEDS ORDERED: Cefdinir 300 MG CAPSULE PO SCH (21:00)
== END 2017-05-12 17:40 | disposition home or self-care (01) | DRG 689 ==
LOC: EMEROO 16:01 → 2ANU 16:01 → SUATTDRO 05-10 06:38
PROVIDERS: ADMIT Hospitalist; ATTEND Internal Medicine

== ENCOUNTER 2018-02-28 21:57 | Observation (INO) ==
[2018-02-28] MEDS ORDERED: 0.9 % Sodium Chloride 500 ML IVC ONE (22:11)
[2018-02-28 22:57] LABS: Basophils # 0.1 K/mcL (0.0-0.2); Basophils % 0.7 %; Eosinophils # 0.2 K/mcL (0.0-0.6); Eosinophils % 1.6 %; Hematocrit 43.3 % (35.3-44.9); Hemoglobin 14.2 g/dL (11.5-15.4); Immature Granulocytes % 0.7 % (0-4); Lymphocytes # 2.2 K/mcL (0.6-4.6); Lymphocytes % 14.4 %; Mean Corpuscular HGB Conc 32.8 g/dL (31.6-35.5); Mean Corpuscular Hemoglobin 29.6 pg (28.0-33.3); Mean Corpuscular Volume 90.2 fL (83.0-100.0); Mean Platelet Volume 10.8 fL (9.4-12.4); Monocytes % 6.5 %; Neutrophils # 11.6 K/mcL (1.6-8.9); Platelet Count 271 K/mcL (140-400); Segmented Neutrophils % 76.1 %
[2018-02-28 23:02] LABS: INR 1.2; Prothrombin Time 12.9 Seconds (9.4-12.1)
[2018-02-28 23:04] LABS: Activated Partial Thrombo Time 30.4 Seconds (26.0-36.0)
[2018-02-28 23:18] LABS: BUN/Creatinine Ratio 17 (6-26); Blood Urea Nitrogen 48 mg/dL (8-23); Calcium 8.4 mg/dL (8.6-10.3); Carbon Dioxide 24 mEq/L (23-29); Chloride 98 mEq/L (98-107); Glucose 369 mg/dL (70-105); Osmolality,Calculated 304 (280-300); Potassium 3.4 mEq/L (3.5-5.1); Sodium 133 mEq/L (136-145); eGFR For African Americans 20 (> 60); eGFR For Non-African Americans 16 (> 60)
[2018-02-28 23:19] LABS: Troponin I < 0.03 ng/mL (< 0.04)
[2018-02-28] MEDS ORDERED: Aspirin 81 MG TAB.CHEW PO STA (23:23)
[2018-02-28] MEDS ORDERED: 0.9 % Sodium Chloride 1,000 ML IVC ONE (23:24)
--- NOTE | 2018-02-28 23:25 | Emergency Department Note ---
Disposition Clinical Impression: Chest pain Qualifiers: Chest pain type: unspecified Qualified Code(s): R07.9 - Chest pain, unspecified Hypotension Qualifiers: Hypotension type: unspecified hypotension type Qualified Code(s): I95.9 - Hypotension, unspecified Disposition: Admitted As Inpatient Condition: Fair Time of Disposition: 23:00 Chest Pain HPI - General Chief Complaint: ED Chest Pain Stated Complaint: chest pain Time Seen by Provider: 02/28/18 22:10 Source: patient Limitations: age, other Vital Signs Reviewed: Yes Nursing Notes Reviewed: Yes - History of Present Illness HPI Narrative: 67-year-old female brought in by EMS from [facility] for chest pain, shortness of breath and hypotension the started within the past hour. Patient' s chest pain is sharp radiating from both shoulders and upper extremity is down to patient's xiphoid process. She also complains of back pain. Pain 10/10 in intensity, constant. Nothing makes it better. Patient is a history of two-vessel CABG, renal failure on dialysis, and ureteral stents. Recently placed by Dr. Wu of urology Patient denies fever, chills, nausea, vomiting. Severity scale (1-10): 5 - Related Data Home Medications Medication Instructions Recorded Confirmed Amitriptyline [Elavil] 25 mg PO HS 07/10/15 03/01/18 Cyclobenzaprine [Flexeril] 10 mg PO QAM 07/10/15 03/01/18 Duloxetine [Cymbalta] 30 mg PO QAM 07/10/15 03/01/18 Ergocalciferol (VITAMIN D2) 50,000 unit PO MO 07/10/15 03/01/18 [Vitamin D2 (50,000 UNIT)] Folic Acid 1 mg PO DAILY 07/10/15 03/01/18 Insulin ASPART [NovoLOG] 10 unit SQ BID 07/10/15 03/01/18 Levothyroxine [Synthroid] 50 mcg PO QAM 07/10/15 03/01/18 OxyCODONE/APAP 5/325 [Percocet 1 tab PO DAILY PRN 07/10/15 03/01/18 5/325] Pantoprazole Sodium [Protonix] 40 mg PO BID 07/10/15 03/01/18 Solifenacin Succinate [Vesicare] 10 mg PO DAILY 07/10/15 03/01/18 Tamsulosin [Flomax] 0.4 mg PO DAILY 07/10/15 03/01/18 Zolpidem [Ambien] 10 mg PO HS 07/10/15 03/01/18 Docusate [Colace] 100 mg PO BID 10/14/16 03/01/18 Albuterol Sulfate [Proair Hfa] 2 puff IH Q4H PRN 03/17/17 03/01/18 Atorvastatin [Lipitor] 40 mg PO HS 03/17/17 03/01/18 Insulin DETEMIR [Levemir] 10 unit SQ BID 03/17/17 03/01/18 OxyCODONE/APAP 5/325 [Percocet 2 tab PO HS PRN 03/17/17 03/01/18 5/325 MG] Ranitidine HCl [Heartburn Relief] 150 mg PO BID 03/17/17 03/01/18 SUMAtriptan succinate [Imitrex] 6 mg SQ BID PRN 03/17/17 03/01/18 Clopidogrel [Plavix] 75 mg PO DAILY 05/09/17 03/01/18 Cranberry Fruit Extract/Vit C [Azo 1 each PO DAILY 05/09/17 03/01/18 Cranberry Softgel] Ondansetron ODT [Zofran ODT] 4 mg PO Q8H PRN 05/09/17 03/01/18 Pramipexole Di-HCl [Pramipexole 0.125 mg PO HS 05/09/17 03/01/18 Dihydrochloride] Sucralfate [Carafate] 1 gm PO 0730,1630 05/09/17 03/01/18 Lisinopril [Zestril] 5 mg PO DAILY 07/05/17 03/01/18 Previous Rx's Medication Instructions Recorded Aspirin 81 mg PO DAILY #30 tab.chew 02/18/16 Metoprolol XL (24 HR) Succ [Toprol 12.5 mg PO DAILY #30 tab.er.24h 02/18/16 Xl] Fluconazole [Diflucan] 150 mg PO DAILY #2 tab 01/10/18 Nitrofurantoin Monohyd/M-Cryst 100 mg PO BID #14 capsule 01/10/18 [Macrobid 100 mg Capsule] Allergies Allergy/AdvReac Type Severity Reaction Status Date / Time adhesive tape Allergy Redness of Verified 07/05/17 11:23 Skin latex Allergy Swelling Verified 07/05/17 11:23 of Lip/Tongue/Throat Sulfa (Sulfonamide Allergy Rash Verified 07/05/17 11:23 Antibiotics) All systems ED: reviewed and negative except as stated. Review of Systems: As Per HPI Constitutional: Reports: weakness. Denies: fever, chills Cardiovascular: Reports: chest pain Musculoskeletal: Reports: back pain Chest Pain PMH - Past Medical History Medical history: Reports: diabetes, dialysis, GERD, myocardial infarction, renal disease, other Surgical history: Reports: appendectomy, cholecystectomy, coronary bypass (CABG) , ureteral stent, other Psychiatric history: Reports: depression BEVELING AND EDGING MACHINE OPERATOR history: Reports: no BEVELING AND EDGING MACHINE OPERATOR history - Social History Smoking Status: Former smoker Alcohol use: Reports: none Drug use: Reports: none Physical Exam Vital Signs Temperature 97.2 F L 02/28/18 22:00 Pulse Rate 91 02/28/18 22:00 Respiratory Rate 16 02/28/18 22:00 Blood Pressure 93/60 02/28/18 22:00 O2 Sat by Pulse Oximetry 100 02/28/18 22:00 Temperature 97.2 F L 02/28/18 22:00 Pulse Rate 91 03/01/18 00:18 Respiratory Rate 18 03/01/18 00:18 Blood Pressure 121/64 03/01/18 00:18 O2 Sat by Pulse Oximetry 97 03/01/18 00:18 Oxygen Delivery Oxygen Delivery Nasal Cannula CONSTITUTIONAL: Well-appearing; well-nourished; A&O X 3, in no apparent distress. Patient has visible pallor, and is hypotensive at 93/60. Patient is afebrile and pulse rate of 91 bpm and not tachypneic HEAD: Normocephalic; atraumatic EYES: PERRL, no scleral icterus NOSE: The nose is normal in appearance without rhinorrhea NECK: No JVD or distended neck veins RESP: Normal chest excursion with respiration; breath sounds clear and equal bilaterally; no wheezes, rhonchi, or rales CARD: Regular rhythm, without murmurs, rub or gallop ABD: Non-distended; non-tender, soft, without rigidity, rebound or guarding,no pulsatile mass CHEST: No pain with palpation SKIN: Pale for age and race; warm and dry without diaphoresis ; no apparent lesions EXTREMITIES: Pulses are 2 plus and equal times 4 extremities, no peripheral edema or calf muscle pain - General Limitations: age, other General appearance: alert Course - Reevaluation(s) Reevaluation #1: Bedside ultrasound revealed leak compressed IVC with minor sniffing. Negative cardiac tamponade. Time: 23:25 Reevaluation #2: Reevaluation of patient's volume status via ultrasonography of IVC shows improved dilation of IVC due to increased volume status. IVC does not compress as much as it did before. Compresses to almost touching versus complete collapse as it did initially. Patient's chest pain is reducing currently 03/09 versus 08/09. Patient no longer hypotensive. Time: 00:46 - Consultations Consultation #1: Dr. Valero the hospitalist as accepted patient for admission. Time: 00:02 Vital Signs Temperature 97.2 F L 02/28/18 22:00 Pulse Rate 91 02/28/18 22:00 Respiratory Rate 16 02/28/18 22:00 Blood Pressure 93/60 02/28/18 22:00 O2 Sat by Pulse Oximetry 100 02/28/18 22:00 Temperature 98.1 F 03/01/18 03:14 Pulse Rate 105 03/01/18 03:14 Respiratory Rate 18 03/01/18 03:14 Blood Pressure 176/69 03/01/18 03:14 O2 Sat by Pulse Oximetry 98 03/01/18 03:14 Oxygen Delivery Oxygen Delivery Nasal Cannula Chest Pain - MDM Narrative Medical decision making narrative: Patient presented with severe chest pain in the very high risk history of two- vessel CABG, renal failure on dialysis, diabetes, hypertension and prior history of MD, was concerning for ACS/MD, pulmonary embolism, aortic dissection. Patient did not have any pulse deficits in upper or lower extremities. Chest x- ray did not show widening mediastinum for aortic dissection. Evaluation patient 's heart under sonography at bedside revealed no cardiac tamponade or signs of right heart strain. However evaluation of IVC shows severe volume deficit with total compression of IVC upon inspiration. This finding is the opposite of what you would find in the presence of right heart strain caused by possible PE or any form of constrictive cardiomyopathy. It is less likely given the current findings patient has a PE at this time. Also, patient is also on new medications to control her blood pressure, but she does not know what it is. Her records show metoprolol XL but her list has not been updated. Patient has not shown an appropriate pulse rate increase for her hypotension, and this may be a result of the edition of the new medication. Recommended thorough review of patient's meds as well. Patient is then rehydrated with 1.5 L IV normal saline. IVC was rechecked show improvement and IVC is no longer fully compressing. Patient's chest pain has reduced with improvement of her volume status as well as her blood pressure which is now 130/64. Current plan is to admit for further evaluation of patient's chest pain. Although, PE and aortic dissection seem less likely culprits at this time, please keep watch for signs for increased suspicion for either. Patient has received aspirin. She has not received any nitrates or opiates due to her hypotension. Patient understands and agrees to treatment and plan for admission. Patient's accepted for admission by Dr. Vance the hospitalist. - Lab Data Lab results reviewed: Yes I reviewed the patient's lab results. Lab results narrative: Short CBC 02/28/18 Range/Units 22:48 WBC 15.2 H (4.3-11.1) K/mcL Hgb 14.2 (11.5-15.4) g/dL Hct 43.3 (35.3-44.9) % Plt Count 271 (140-400) K/mcL Neutrophils # 11.6 H (1.6-8.9) K/mcL BMP 02/28/18 Range/Units 22:48 Sodium 133 L (136-145) mEq/L Potassium 3.4 L (3.5-5.1) mEq/L Chloride 98 (98-107) mEq/L Carbon Dioxide 24 (23-29) mEq/L BUN 48 H (8-23) mg/dL Creatinine 2.86 H (0.60-1.20) mg/dL Glucose 369 H (70-105) mg/dL Calcium 8.4 L (8.6-10.3) mg/dL Cardiac Enzymes 02/28/18 Range/Units 22:48 Troponin I < 0.03 (< 0.04) ng/mL Result diagrams: 03/01/18 02:04 03/01/18 02:04 Lab Results 02/28/18 02/28/18 02/28/18 Range/Units 22:48 22:48 22:48 WBC 15.2 H (4.3-11.1) K/mcL RBC 4.80 (3.82-4.97) M/mcL Hgb 14.2 (11.5-15.4) g/dL Hct 43.3 (35.3-44.9) % MCV 90.2 (83.0-100.0) fL MCH 29.6 (28.0-33.3) pg MCHC 32.8 (31.6-35.5) g/dL RDW 13.0 (11.5-14.5) % Plt Count 271 (140-400) K/mcL MPV 10.8 (9.4-12.4) fL Immature Gran % 0.7 (0-4) % Seg Neutrophils % 76.1 % Lymphocytes % 14.4 % Monocytes % 6.5 % Eosinophils % 1.6 % Basophils % 0.7 % Neutrophils # 11.6 H (1.6-8.9) K/mcL Lymphocytes # 2.2 (0.6-4.6) K/mcL Monocytes # 1.0 (0.0-1.3) K/mcL Eosinophils # 0.2 (0.0-0.6) K/mcL Basophils # 0.1 (0.0-0.2) K/mcL PT 12.9 H (9.4-12.1) Seconds INR 1.2 APTT 30.4 (26.0-36.0) Seconds Sodium 133 L (136-145) mEq/L Potassium 3.4 L (3.5-5.1) mEq/L Chloride 98 (98-107) mEq/L Carbon Dioxide 24 (23-29) mEq/L BUN 48 H (8-23) mg/dL Creatinine 2.86 H (0.60-1.20) mg/dL Est GFR ( Amer) 20 L (> 60) Est GFR (Non-Af Amer) 16 L (> 60) BUN/Creatinine Ratio 17 (6-26) Glucose 369 H (70-105) mg/dL Calculated Osmolality 304 H (280-300) Calcium 8.4 L (8.6-10.3) mg/dL Troponin I < 0.03 (< 0.04) ng/mL - Radiology Data Radiology results reviewed: Yes I reviewed the patient's radiology results. Chest X-Ray 02/28/18 22:11 IMPRESSION: No acute cardiopulmonary abnormality. D/ / Fuentes Bahena / Fuentes Bahena Interpreting Provider: Fuentes Bahena - EKG Data EKG attestation: Yes I reviewed and interpreted this EKG. EKG results narrative: EKG taken 02/28/2018 at 2210 hrs. shows sinus rhythm at a rate of 92 beats minute without any acute ST elevations or depressions in any leads, no QRS Widening or QT prolongation. Patient's EKG today is very similar to previous EKG taken January 15 2018. Heart Score - Score History: Highly Suspicious EKG: Non Specific repolarisation Disturbance Age: Greater than 65 Risk Factors: Equal/Greater than 3 risk factor or history of atherosclerotic disease Troponin: Less than normal limit HEART Score Total: 7
[2018-03-01] MEDS ORDERED: Acetaminophen 325 MG TABLET PO PRN (01:24)
[2018-03-01] MEDS ORDERED: Naloxone 0.4 MG/ML INJ IVP PRN (01:24)
[2018-03-01] MEDS ORDERED: D5% in Water 1,000 ML IVC PRN (01:27)
[2018-03-01] MEDS ORDERED: *HR* Dextrose 50 % in Water (Syg) 50 ML SYRINGE IVP PRN (01:27)
[2018-03-01] MEDS ORDERED: Dextrose Gel 15 GM/37.5 ML TUBE PO PRN ×2 (01:27)
--- NOTE | 2018-03-01 01:33 | Internal Med History&Physical ---
Date of Encounter: 03/01/18 Time of Encounter: 01:00 Internal Medicine - H&P: HPI Chief complaint: Dizziness, diarrhea Admitted From: Home Plans for Post Hospital Care: Home (assisted living facility) History of present illness: Ms. Dan is a 67 year old female who was sent from assisted living facility for c/o- dizziness. Rita reports that around 9.30pm last night, she got up to use the commode and noticed she had 2-3 episodes of diarrhea, loose watery and nonbloody, after which she felt very dizzy and unsteady, and called a nurse to help her. EMS was called by the nurse as the patient was noted to be very weak. Upon further questioning, she reports generalized bodyaches from her waist upwards, including both her shoulders and chest, associated with shortness of breath. Chest pain was pressure-like sensation and heaviness. SHe reports all her symptoms spontaneously subsided in the ER. SHe follows with Cardiology and gets frequent evaluations. No cough, fever/chills, focal weakness, syncope. She has no missed HD sessions, last one on Tuesday. SHe also recently was in [place], where she had B/L thoracentesis. Past Med Surg Social Fam HX - Past Medical History Source: patient Medical history: coronary artery disease, diabetes, dialysis, GERD, hypertension , myocardial infarction, renal disease, other Psychiatric history: depression - Past Surgical History Surgical History: appendectomy, cholecystectomy, coronary bypass (CABG), hysterectomy, ureteral stent, other - Social History Smoking Status: Former smoker Smokeless Tobacco Status: No Alcohol use: none Drug use: none Occupational status: disabled Current living situation: Assisted Living Activity Level: Uses cane/walker Recent Out of Country Travel Within the Last 8 Weeks: No Exposure or Possible Exposure to Illness During Travel: No - Family History Mother Living Status: Hx Family Endocrine Disorder: (DM) Father Hx Family Cardiac Disorders: Yes ("heart troubles") Hx Family Cancer: Yes (Prostate cancer) Hx Family Endocrine Disorder: Yes (DM) Brother Hx Family Cardiac Disorders: Yes (CAD) Hx Family Cancer: Yes (lung cancer) Internal Medicine - H&P: Meds Amitriptyline [Elavil] 25 mg PO HS 07/10/15 [History] Cyclobenzaprine [Flexeril] 10 mg PO QAM 07/10/15 [History] Duloxetine [Cymbalta] 30 mg PO QAM 07/10/15 [History] Ergocalciferol (VITAMIN D2) [Vitamin D2 (50,000 UNIT)] 50,000 unit PO MO [History] Folic Acid 1 mg PO DAILY 07/10/15 [History] Insulin ASPART [NovoLOG] 10 unit SQ BID 07/10/15 [History] Levothyroxine [Synthroid] 50 mcg PO QAM 07/10/15 [History] OxyCODONE/APAP 5/325 [Percocet 5/325] 1 tab PO DAILY PRN 07/10/15 [History] Pantoprazole Sodium [Protonix] 40 mg PO BID 07/10/15 [History] Solifenacin Succinate [Vesicare] 10 mg PO DAILY 07/10/15 [History] Tamsulosin [Flomax] 0.4 mg PO DAILY 07/10/15 [History] Zolpidem [Ambien] 10 mg PO HS 07/10/15 [History] Aspirin 81 mg PO DAILY #30 tab.chew 02/18/16 [Rx] Metoprolol XL (24 HR) Succ [Toprol Xl] 12.5 mg PO DAILY #30 tab.er.24h 02/18/16 [Rx] Docusate [Colace] 100 mg PO BID 10/14/16 [History] Albuterol Sulfate [Proair Hfa] 2 puff IH Q4H PRN 03/17/17 [History] Atorvastatin [Lipitor] 40 mg PO HS 03/17/17 [History] Insulin DETEMIR [Levemir] 10 unit SQ BID 03/17/17 [History] OxyCODONE/APAP 5/325 [Percocet 5/325 MG] 2 tab PO HS PRN 03/17/17 [History] Ranitidine HCl [Heartburn Relief] 150 mg PO BID 03/17/17 [History] SUMAtriptan succinate [Imitrex] 6 mg SQ BID PRN 03/17/17 [History] Clopidogrel [Plavix] 75 mg PO DAILY 05/09/17 [History] Cranberry Fruit Extract/Vit C [Azo Cranberry Softgel] 1 each PO DAILY 05/09/17 [ History] Ondansetron ODT [Zofran ODT] 4 mg PO Q8H PRN 05/09/17 [History] Pramipexole Di-HCl [Pramipexole Dihydrochloride] 0.125 mg PO HS 05/09/17 [ History] Sucralfate [Carafate] 1 gm PO 0730,1630 05/09/17 [History] Lisinopril [Zestril] 5 mg PO DAILY 07/05/17 [History] Fluconazole [Diflucan] 150 mg PO DAILY #2 tab 01/10/18 [Rx] Nitrofurantoin Monohyd/M-Cryst [Macrobid 100 mg Capsule] 100 mg PO BID #14 capsule 01/10/18 [Rx] 3 Allergy/AdvReac Type Severity Reaction Status Date / Time adhesive tape Allergy Redness of Verified 07/05/17 11:23 Skin latex Allergy Swelling Verified 07/05/17 11:23 of Lip/Tongue/Throat Sulfa (Sulfonamide Allergy Rash Verified 07/05/17 11:23 Antibiotics) All Systems PM: A 10-system review of systems was performed and is negative for pertinent findings except as documented above in the HPI. - Constitutional Constitutional: lethargy, weakness, no chills, no fever(s), no night sweats - EENT Eyes: no change in vision, no discharge, no pain, no photophobia Ears: no ear discharge, no ear pain, no tinnitus Nose, mouth and throat: no dysphagia, no nasal discharge, no neck pain, no sore throat - Cardiovascular Cardiovascular ROS IM: dyspnea, lightheadedness, no chest pain, no diaphoresis, no palpitations, no syncope - Respiratory Respiratory: no cough, no dyspnea, no wheezing, no excessive phlegm production - Gastrointestinal Gastrointestinal: diarrhea, no abdominal pain, no hematemesis, no hematochezia, no melena, no nausea, no vomiting - Genitourinary Genitourinary: no change in urinary stream, no dysuria, no flank pain, no hematuria - Musculoskeletal Musculoskeletal ROS IM: no numbness, no tingling - Integumentary Integumentary IM: no rash, no unusual bruising - Neurological Neurological ROS: no confusion, no convulsions, no focal weakness, no numbness, no tingling, no tremor(s) - Hematologic/Lymphatic Hematologic/Lymphatic: no easy bruising - Constitutional Vitals: Temp Pulse Resp BP Pulse Ox 97.2 F L 91 18 121/64 97 02/28/18 22:00 03/01/18 00:18 03/01/18 00:18 03/01/18 00:18 03/01/18 00:18 General appearance: Present: A&O X 3, answers questions appropriately - Respiratory Respiratory exam: Present: decreased breath sounds (at right base), CTAB. Absent: accessory muscle use, rales, rhonchi, wheezes - Cardiovascular Cardiovascular exam: Present: RRR, +S1, +S2. Absent: diastolic murmur, gallop, rubs, systolic murmur - GI/Abdominal GI/Abdominal exam: Present: normal bowel sounds, soft, no peritoneal signs. Absent: distended, tenderness - Extremities Exam Extremities exam: Present: full ROM, warm, radial pulses palpable and symmetrical. Absent: calf tenderness, cyanotic, pedal edema - Neurological Exam Neurological exam: Present: CN II-XII intact, oriented X3, no focal deficits. Absent: pronater drift, facial droop, speech deficit - Skin Skin exam: Present: dry, intact Internal Med - H&P Results - Labs CBC & Chem 7: 02/28/18 22:48 02/28/18 22:48 Labs: Short CBC 02/28/18 Range/Units 22:48 WBC 15.2 H (4.3-11.1) K/mcL Hgb 14.2 (11.5-15.4) g/dL Hct 43.3 (35.3-44.9) % Plt Count 271 (140-400) K/mcL Neutrophils # 11.6 H (1.6-8.9) K/mcL BMP 02/28/18 22:48 Sodium 133 L Potassium 3.4 L Chloride 98 Carbon Dioxide 24 BUN 48 H Creatinine 2.86 H Glucose 369 H Calcium 8.4 L Cardiac Enzymes 02/28/18 Range/Units 22:48 Troponin I < 0.03 (< 0.04) ng/mL - EKG Data -: EKG Interpreted by Myself EKG shows normal: sinus rhythm (LVH) Rate: normal - Impressions ITS Impressions Chest X-Ray 02/28/18 22:11 IMPRESSION: No acute cardiopulmonary abnormality. D/ / Fuentes Bahena / Fuentes Bahena Interpreting Provider: Fuentes Bahena - Assessment and plan (1) Chest pain Current Visit: Yes Status: Acute Assessment and plan: nonspecific and atypical. She describes near-syncope due to diarrhea and hypotension along with generalized myalgias including chest pain. Hypotension responded to IV hydration. Continue Telemetry monitoring and serial Troponins; hold antihypertensives for now; HD in am; Qualifiers: Chest pain type: unspecified Qualified Code(s): R07.9 - Chest pain, unspecified (2) CAD (coronary artery disease) of artery bypass graft Current Visit: Yes Status: Chronic Assessment and plan: continue ASA and statin, hold beta danette; reconcile home meds when available; Qualifiers: [place] vs. 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4 - retirement (current) use of insulin; Z99.2 - Dependence on renal dialysis; Z99.2 - Dependence on renal dialysis; Z99.2 - Dependence on renal dialysis; Z99.2 - Dependence on renal dialysis (5) ESRD needing dialysis Current Visit: Yes Status: Chronic Assessment and plan: no missed sessions; will consult Nephrology for HD in am; - Time Spent With Patient Total time spent is greater than 50% in coordination of care (as documented) at patient's floor/unit and/or counseling patient:
[2018-03-01 02:14] LABS: Basophils # 0.1 K/mcL (0.0-0.2); Basophils % 0.4 %; Eosinophils # 0.1 K/mcL (0.0-0.6); Eosinophils % 0.9 %; Hematocrit 38.7 % (35.3-44.9); Hemoglobin 12.7 g/dL (11.5-15.4); Immature Granulocytes % 0.4 % (0-4); Lymphocytes # 1.6 K/mcL (0.6-4.6); Lymphocytes % 11.4 %; Mean Corpuscular HGB Conc 32.8 g/dL (31.6-35.5); Mean Corpuscular Hemoglobin 29.6 pg (28.0-33.3); Mean Corpuscular Volume 90.2 fL (83.0-100.0); Mean Platelet Volume 10.6 fL (9.4-12.4); Monocytes # 0.8 K/mcL (0.0-1.3); Monocytes % 5.5 %; Platelet Count 251 K/mcL (140-400); Red Blood Count 4.29 M/mcL (3.82-4.97); Red Cell Distribution Width 13.2 % (11.5-14.5); Segmented Neutrophils % 81.4 %
[2018-03-01] MEDS ORDERED: Potassium Chloride Elixir 20 MEQ/15 ML UDC PO ONE (02:27)
[2018-03-01 02:32] LABS: Calcium 8.1 mg/dL (8.6-10.3); Magnesium 1.7 mg/dL (1.6-2.6); Potassium 3.5 mEq/L (3.5-5.1)
[2018-03-01] MEDS: Insulin LISPRO 300 UNITS/3 ML VIAL SQ SCH ×5 (03:57→21:54)
[2018-03-01] MEDS ORDERED: 0.9 % Sodium Chloride 250 ML IVC PRN (07:29)
[2018-03-01] MEDS ORDERED: 0.9 % Sodium Chloride 1,000 ML PRIME SCH (07:30)
[2018-03-01] MEDS ORDERED: 0.9 % Sodium Chloride 1,000 ML ONE (07:49)
[2018-03-01] MEDS: Insulin DETEMIR 100 UNIT/ML X5UNITS SQ SCH ×2 (08:06→23:58)
[2018-03-01] MEDS: Sucralfate 1 GM TABLET PO SCH ×2 (08:07→17:27)
[2018-03-01] MEDS: Folic Acid 1 MG TABLET PO SCH (08:09)
[2018-03-01] MEDS: Aspirin 81 MG TAB.CHEW PO SCH (08:09)
[2018-03-01 09:12] LABS: Hepatitis B Surface Antigen Nonreactive (Nonreactive)
[2018-03-01 09:24] LABS: Hepatitis B Surface Antibody 9.56 mIU/mL
--- NOTE | 2018-03-01 12:32 | Electrocardiograph Report ---
[place] [id number] Test Date: 2018-02-28 Pat Name: Alaina Dan Department: 102 Room: 2A Gender: F Hand Clipper: Raiza : 1950 Requested By: William Leslie Order Number: [id number] Reading MD: Elfego Mandujano Measurements Intervals [place] Rate: 92 P: 69 ME: 172 QRS: -23 QRSD: 104 T: 86 QT: 386 QTc: 435 Interpretive Statements SINUS RHYTHM BORDERLINE LEFT AXIS DEVIATION MINIMAL VOLTAGE CRITERIA FOR LVH, CONSIDER NORMAL VARIANT NONSPECIFIC T-WAVE ABNORMALITY Electronically Signed On 03-01-2018 12:30:32 EDT by Elfego Mandujano
--- NOTE | 2018-03-01 13:09 | Nephrology Consult Note ---
Date of Encounter: 03/01/18 Time of Encounter: 13:05 Assessment and Plan (1) ESRD needing dialysis Current Visit: Yes Status: Chronic HD in progress. Continue current HD regimen. Renal vitamins and continue to renal dose all medications. (2) Chest pain Current Visit: Yes Status: Acute Denies chest pain at this time, states pain is "all over". Per primary team. Qualifiers: Chest pain type: unspecified Qualified Code(s): R07.9 - Chest pain, unspecified (3) Hypokalemia Current Visit: Yes Status: Acute 3.5, stable. Replace as indicated. (4) Diabetes mellitus Current Visit: Yes Status: Chronic Blood sugar in the 300's. Continue to cover with sliding scale. Qualifiers: Diabetes mellitus type: type 2 Diabetes mellitus assisted insulin use: with intermediate manager use Diabetes mellitus complication status: with kidney complications Diabetes mellitus complication detail: with chronic kidney disease Chronic kidney disease stage: on chronic dialysis Qualified Code(s) : E11.22 - Type 2 diabetes mellitus with diabetic chronic kidney disease; N18.6 - End stage renal disease; Z99.2 - Dependence on renal dialysis; Z99.2 - Dependence on renal dialysis; Z99.2 - Dependence on renal dialysis; N18.6 - End stage renal disease; N18.6 - End stage renal disease; N18.6 - End stage renal disease; Z79.4 - [facility] (current) use of insulin; Z79.4 - terminal clerk (current ) use of insulin; Z79.4 - terminal clerk (current) use of insulin; Z79.4 - [facility] (current) use of insulin; Z99.2 - Dependence on renal dialysis History of Present Illness - Reason for Consult Consult date: 03/01/18 end stage renal disease - Chief Complaint CP - History of Present Illness Ms. Dan is a 67 year old female who is followed by Dr. Griffin. She is MWF at [facility]. She started having chest pain, so she came to the ED for evaluation. When asked if she has ever had this chest pain before, she says no. PMH: coronary artery disease, diabetes, dialysis, GERD, hypertension and ESRD. She denies Chest pain at this time. Past Med Surg Social Fam HX - Past Medical History Medical history: diabetes, dialysis, GERD, myocardial infarction, renal disease , other Psychiatric history: depression - Past Surgical History Surgical History: appendectomy, cholecystectomy, coronary bypass (CABG), ureteral stent, other - Social History Smoking Status: Former smoker Smokeless Tobacco Status: No Alcohol use: none Drug use: none - Family History Mother Living Status: Hx Family Endocrine Disorder: (DM) Father Adopted: No Hx Family Cardiac Disorders: Yes ("heart troubles") Hx Family Cancer: Yes (Prostate cancer) Hx Family Endocrine Disorder: Yes (DM) Brother Hx Family Cardiac Disorders: Yes (CAD) Hx Family Cancer: Yes (lung cancer) Medications and Allergies Amitriptyline [Elavil] 25 mg PO HS 07/10/15 [History] Cyclobenzaprine [Flexeril] 10 mg PO QAM 07/10/15 [History] Duloxetine [Cymbalta] 30 mg PO QAM 07/10/15 [History] Ergocalciferol (VITAMIN D2) [Vitamin D2 (50,000 UNIT)] 50,000 unit PO MO [History] Folic Acid 1 mg PO DAILY 07/10/15 [History] Insulin ASPART [NovoLOG] 0 unit SQ TIDWM 07/10/15 [History] Levothyroxine [Synthroid] 50 mcg PO QAM 07/10/15 [History] OxyCODONE/APAP 5/325 [Percocet 5/325] 1 tab PO TID PRN 07/10/15 [History] Pantoprazole Sodium [Protonix] 40 mg PO BID 07/10/15 [History] Solifenacin Succinate [Vesicare] 10 mg PO DAILY 07/10/15 [History] Tamsulosin [Flomax] 0.4 mg PO DAILY 07/10/15 [History] Zolpidem [Ambien] 10 mg PO HS 07/10/15 [History] Aspirin 81 mg PO DAILY #30 tab.chew 02/18/16 [Rx] Metoprolol XL (24 HR) Succ [Toprol Xl] 12.5 mg PO DAILY #30 tab.er.24h 02/18/16 [Rx] Docusate [Colace] 100 mg PO BID 10/14/16 [History] Albuterol Sulfate [Proair Hfa] 2 puff IH Q4H PRN 03/17/17 [History] Atorvastatin [Lipitor] 40 mg PO HS 03/17/17 [History] Insulin DETEMIR [Levemir] 10 unit SQ BID 03/17/17 [History] Ranitidine HCl [Heartburn Relief] 150 mg PO BID 03/17/17 [History] Clopidogrel [Plavix] 75 mg PO DAILY 05/09/17 [History] Ondansetron ODT [Zofran ODT] 4 mg PO Q8H PRN 05/09/17 [History] Sucralfate [Carafate] 1 gm PO 0730,1630 05/09/17 [History] Lisinopril [Zestril] 5 mg PO DAILY 07/05/17 [History] Diclofenac Sodium 1 appl TP DAILY PRN 03/01/18 [History] Folic Acid/Vit Bcomp,C [Renal-Elizabeth Tablet] 0.8 mg PO DAILY 03/01/18 [History] Furosemide [Lasix] 20 mg PO DAILY 03/01/18 [History] Hydrocortisone 1% CREAM [Cortaid] 1 appl TP DAILY PRN 03/01/18 [History] Tizanidine HCl 2 mg PO BID 03/01/18 [History] Triamcinolone Acet 0.1% CRM [Kenalog] 1 appl TP DAILY PRN 03/01/18 [History] 3 Allergy/AdvReac Type Severity Reaction Status Date / Time adhesive tape Allergy Redness of Verified 07/05/17 11:23 Skin latex Allergy Swelling Verified 07/05/17 11:23 of Lip/Tongue/Throat Sulfa (Sulfonamide Allergy Rash Verified 07/05/17 11:23 Antibiotics) Review of Systems Constitutional: fatigue, weakness Cardiovascular: chest pain, dyspnea, lightheadedness Respiratory: no cough Gastrointestinal: change in bowel habits, diarrhea Exam - Vital Signs Vital signs: Initial Vital Signs Temp Pulse Resp BP Pulse Ox 97.2 F L 91 16 93/60 100 02/28/18 22:00 02/28/18 22:00 02/28/18 22:00 02/28/18 22:00 02/28/18 22:00 Vital Signs - Last 8 Hours Temp Pulse Resp BP Pulse Ox 03/01/18 10:35 146/66 03/01/18 10:20 148/69 03/01/18 10:05 97.4 F L 17 144/81 03/01/18 06:35 97.8 F 89 18 136/75 98 Intake and Output 02/28/18 03/01/18 03/01/18 23:59 07:59 15:59 Intake Total 600 / 600 Output Total 250 / 250 Balance 350 / 350 Intake: Oral 0 / 0 Intake, Rinseback and Flushes 600 / 600 Output: Urine 250 / 250 Other: # Voids 1 Blood Glucose* 212 107 Hemodialysis Net Fluid Removed 606 (mL) - General Appearance General appearance: chronically ill, fatigue EENT: ATNC, hearing intact, vision intact Neck: supple Respiratory: clear Cardiology: edema (trace bilateral. ), normal S1, normal S2 - Dialysis Access Dialysis Vascular Access: Arteriovenous Fistula (Right upper arm.) thrill: Yes bruit: Yes Gastrointestinal: normoactive bowel sounds, no tenderness, no guarding Integumentary: warm and dry Neurologic: alert and oriented x3 Psychiatric: mood/affect appropriate, cooperative Results - Lab Results 03/01/18 02:04 03/01/18 02:04 Most recent lab results Calcium 8.1 mg/dL (8.6-10.3) L 03/01/18 02:04 Magnesium 1.7 mg/dL (1.6-2.6) 03/01/18 02:04 Consult Discharge Plan - Plan Referrals: Bartolo Washburn MD [Primary Care Provider] -
[2018-03-01] MEDS ORDERED: *HR* Promethazine 25 MG/ML VIAL IVP PRN (14:11)
--- NOTE | 2018-03-01 15:10 | Internal Med Progress Note ---
Date of Encounter: 03/01/18 Time of Encounter: 14:50 - Assessment and plan (1) Chest pain Current Visit: Yes Status: Acute Assessment and plan: So far stable trop @ 0.04 No acute EKG changes Her chest pain seems to be atypical .. however since pt is at high risk for ACS with h/o CAD, ESRD will get nuclear stress test in AM Qualifiers: Chest pain type: unspecified Qualified Code(s): R07.9 - Chest pain, unspecified (2) Near syncope Current Visit: Yes Status: Acute Assessment and plan: mostly vasovagal / ortho static will check ortho stat vitals 2 D Echo / Carotid doppler ordered (3) Diarrhea Current Visit: Yes Status: Acute Assessment and plan: cont supportive care need to r/o C. Dif Qualifiers: Diarrhea type: unspecified type Qualified Code(s): R19.7 - Diarrhea, unspecified (4) ESRD needing dialysis Current Visit: Yes Status: Chronic Assessment and plan: Scheduled for HD today (5) Diabetes mellitus Current Visit: Yes Status: Chronic Assessment and plan: ISS DM diet Qualifiers: Diabetes mellitus type: type 2 Diabetes mellitus usp insulin use: with ocean transportation intermediary use Diabetes mellitus complication status: with kidney complications Diabetes mellitus complication detail: with chronic kidney disease Chronic kidney disease stage: on chronic dialysis Qualified Code(s) : E11.22 - Type 2 diabetes mellitus with diabetic chronic kidney disease; N18.6 - End stage renal disease; Z99.2 - Dependence on renal dialysis; Z99.2 - Dependence on renal dialysis; Z99.2 - Dependence on renal dialysis; N18.6 - End stage renal disease; N18.6 - End stage renal disease; N18.6 - End stage renal disease; Z79.4 - retirement (current) use of insulin; Z79.4 - retirement (current ) use of insulin; Z79.4 - retirement (current) use of insulin; Z79.4 - retirement (current) use of insulin; Z99.2 - Dependence on renal dialysis (6) Hypokalemia Current Visit: Yes Status: Acute Assessment and plan: Replace during HD (7) CAD (coronary artery disease) of artery bypass graft Current Visit: Yes Status: Chronic Assessment and plan: continue ASA and statin resumed home medications Qualifiers: [place] vs. transplanted heart: [place] heart Associated angina: without angina Qualified Code(s): I25.810 - Atherosclerosis of coronary artery bypass graft(s) without angina pectoris - Time Spent With Patient Total time spent is greater than 50% in coordination of care (as documented) at patient's floor/unit and/or counseling patient: - Subjective Interval history: Ms. Dan is a 67 year old female with known PMH of coronary artery disease, diabetes, dialysis, GERD, hypertension and ESRD on HD, who was sent from assisted living facility for c/o- dizziness and near syncopal episode. Paitent reports that around 9.30pm last night, she got up to use the commode and noticed she had 2-3 episodes of diarrhea, loose watery and non bloody, after which she felt very dizzy and unsteady, and called a nurse to help her. She denied any SOB. Did have chest pain located substernally. Now she c/o more like chest discomfort and generalized body aches too. - Constitutional Vitals: Temp Pulse Resp BP Pulse Ox 97.9 F 89 18 144/72 98 03/01/18 13:20 03/01/18 06:35 03/01/18 13:20 03/01/18 13:20 03/01/18 06:35 General appearance: Present: A&O X 3, answers questions appropriately - Head Head exam: Present: atraumatic, normal inspection - Neck Neck exam general surgery: Present: supple - Respiratory Respiratory exam: Present: decreased breath sounds. Absent: rales, respiratory distress, rhonchi, wheezes - Cardiovascular Cardiovascular exam: Present: RRR, +S1, +S2. Absent: tachycardia - GI/Abdominal GI/Abdominal exam: Present: normal bowel sounds, soft. Absent: rebound, rigid, tenderness - Extremities Exam Extremities exam: Absent: calf tenderness, pedal edema, tenderness - Back Exam Back exam: Absent: CVA tenderness (L), CVA tenderness (R) - Neurological Exam Neurological exam: Present: alert, oriented X3 - Psychiatric Psychiatric exam: Present: normal affect, normal mood - Skin Skin exam: Absent: rash Internal Medicine: Result - Labs CBC & Chem 7: 03/01/18 02:04 03/01/18 02:04 Labs: Short CBC 03/01/18 Range/Units 02:04 WBC 13.6 H (4.3-11.1) K/mcL Hgb 12.7 D (11.5-15.4) g/dL Hct 38.7 (35.3-44.9) % Plt Count 251 (140-400) K/mcL Neutrophils # 11.0 H (1.6-8.9) K/mcL BMP 03/01/18 02:04 Sodium 134 L Potassium 3.5 Chloride 102 Carbon Dioxide 23 BUN 48 H Creatinine 2.72 H Glucose 358 H Calcium 8.1 L Cardiac Enzymes 03/01/18 03/01/18 03/01/18 Range/Units 02:04 07:27 13:50 Troponin I 0.03 0.04 H* 0.04 H* (< 0.04) ng/mL - ABG Interpretation ABG results: PT/INR, D-dimer PT 12.9 Seconds (9.4-12.1) H 02/28/18 22:48 Consult Discharge Plan - Plan Referrals: Bartolo Washburn MD [Primary Care Provider] -
[2018-03-01] MEDS: Metoprolol XL (24 HR) Succ 25 MG TAB.ER.24H PO SCH (17:27)
[2018-03-01] MEDS: *HR* Heparin 5,000 UNIT/ML VIAL SQ SCH (17:27)
[2018-03-01] MEDS: Ondansetron 4 MG/2 ML VIAL IVP PRN (17:27)
[2018-03-01] MEDS ORDERED: Insulin LISPRO 300 UNITS/3 ML VIAL SQ SCH (21:00)
[2018-03-01] MEDS ORDERED: Famotidine 20 MG TABLET PO SCH (21:00)
[2018-03-01] MEDS: tiZANidine 4 MG TABLET PO SCH (21:52)
--- NOTE | 2018-03-02 01:11 | Emergency Department Note ---
Disposition Clinical Impression: Chest pain Qualifiers: Chest pain type: unspecified Qualified Code(s): R07.9 - Chest pain, unspecified Hypotension Qualifiers: Hypotension type: unspecified hypotension type Qualified Code(s): I95.9 - Hypotension, unspecified Disposition: Admitted As Inpatient Condition: Fair General Adult HPI - General Chief complaint: ED Chest Pain Stated complaint: chest pain Time Seen by Provider: 02/28/18 22:10 Source: patient Limitations: age, other - History of Present Illness Pain Scale: 5 - Related Data Home Medications Medication Instructions Recorded Confirmed Amitriptyline [Elavil] 25 mg PO HS 07/10/15 03/01/18 Cyclobenzaprine [Flexeril] 10 mg PO QAM 07/10/15 03/01/18 Duloxetine [Cymbalta] 30 mg PO QAM 07/10/15 03/01/18 Ergocalciferol (VITAMIN D2) 50,000 unit PO MO 07/10/15 03/01/18 [Vitamin D2 (50,000 UNIT)] Folic Acid 1 mg PO DAILY 07/10/15 03/01/18 Insulin ASPART [NovoLOG] 0 unit SQ TIDWM 07/10/15 03/01/18 Levothyroxine [Synthroid] 50 mcg PO QAM 07/10/15 03/01/18 OxyCODONE/APAP 5/325 [Percocet 1 tab PO TID PRN 07/10/15 03/01/18 5/325] Pantoprazole Sodium [Protonix] 40 mg PO BID 07/10/15 03/01/18 Solifenacin Succinate [Vesicare] 10 mg PO DAILY 07/10/15 03/01/18 Tamsulosin [Flomax] 0.4 mg PO DAILY 07/10/15 03/01/18 Zolpidem [Ambien] 10 mg PO HS 07/10/15 03/01/18 Docusate [Colace] 100 mg PO BID 10/14/16 03/01/18 Albuterol Sulfate [Proair Hfa] 2 puff IH Q4H PRN 03/17/17 03/01/18 Atorvastatin [Lipitor] 40 mg PO HS 03/17/17 03/01/18 Insulin DETEMIR [Levemir] 10 unit SQ BID 03/17/17 03/01/18 Ranitidine HCl [Heartburn Relief] 150 mg PO BID 03/17/17 03/01/18 Clopidogrel [Plavix] 75 mg PO DAILY 05/09/17 03/01/18 Ondansetron ODT [Zofran ODT] 4 mg PO Q8H PRN 05/09/17 03/01/18 Sucralfate [Carafate] 1 gm PO 0730,1630 05/09/17 03/01/18 Lisinopril [Zestril] 5 mg PO DAILY 07/05/17 03/01/18 Diclofenac Sodium 1 appl TP DAILY PRN 03/01/18 03/01/18 Folic Acid/Vit Bcomp,C [Renal-Elizabeth 0.8 mg PO DAILY 03/01/18 03/01/18 Tablet] Furosemide [Lasix] 20 mg PO DAILY 03/01/18 03/01/18 Hydrocortisone 1% CREAM [Cortaid] 1 appl TP DAILY PRN 03/01/18 03/01/18 Tizanidine HCl 2 mg PO BID 03/01/18 03/01/18 Triamcinolone Acet 0.1% CRM 1 appl TP DAILY PRN 03/01/18 03/01/18 [Kenalog] Previous Rx's Medication Instructions Recorded Aspirin 81 mg PO DAILY #30 tab.chew 02/18/16 Metoprolol XL (24 HR) Succ [Toprol 12.5 mg PO DAILY #30 tab.er.24h 02/18/16 Xl] Allergies Allergy/AdvReac Type Severity Reaction Status Date / Time adhesive tape Allergy Redness of Verified 07/05/17 11:23 Skin latex Allergy Swelling Verified 07/05/17 11:23 of Lip/Tongue/Throat Sulfa (Sulfonamide Allergy Rash Verified 07/05/17 11:23 Antibiotics) Constitutional: Reports: weakness. Denies: fever, chills Cardiovascular: Reports: chest pain Musculoskeletal: Reports: back pain Past Medical History - Past Medical History Medical history: Reports: diabetes, dialysis, GERD, myocardial infarction, renal disease, other Surgical history: Reports: appendectomy, cholecystectomy, coronary bypass (CABG) , ureteral stent, other Psychiatric history: Reports: depression BAND BUILDER history: Reports: no BAND BUILDER history - Social History Smoking Status: Former smoker Smokeless Tobacco Status: No Alcohol use: Reports: none Drug use: Reports: none Physical Exam - General Limitations: age, other General appearance: alert Course Vital Signs Temperature 97.2 F L 02/28/18 22:00 Pulse Rate 91 02/28/18 22:00 Respiratory Rate 16 02/28/18 22:00 Blood Pressure 93/60 02/28/18 22:00 O2 Sat by Pulse Oximetry 100 02/28/18 22:00 Temperature 98.3 F 03/02/18 00:07 Pulse Rate 66 03/02/18 00:07 Respiratory Rate 18 03/02/18 00:07 Blood Pressure 152/72 03/02/18 00:07 O2 Sat by Pulse Oximetry 100 03/02/18 00:07 Oxygen Delivery Oxygen Delivery Nasal Cannula Medical Decision Making - Lab Data Result diagrams: 03/01/18 02:04 03/01/18 02:04 Lab Results 02/28/18 02/28/18 02/28/18 Range/Units 22:48 22:48 22:48 WBC 15.2 H (4.3-11.1) K/mcL RBC 4.80 (3.82-4.97) M/mcL Hgb 14.2 (11.5-15.4) g/dL Hct 43.3 (35.3-44.9) % MCV 90.2 (83.0-100.0) fL MCH 29.6 (28.0-33.3) pg MCHC 32.8 (31.6-35.5) g/dL RDW 13.0 (11.5-14.5) % Plt Count 271 (140-400) K/mcL MPV 10.8 (9.4-12.4) fL Immature Gran % 0.7 (0-4) % Seg Neutrophils % 76.1 % Lymphocytes % 14.4 % Monocytes % 6.5 % Eosinophils % 1.6 % Basophils % 0.7 % Neutrophils # 11.6 H (1.6-8.9) K/mcL Lymphocytes # 2.2 (0.6-4.6) K/mcL Monocytes # 1.0 (0.0-1.3) K/mcL Eosinophils # 0.2 (0.0-0.6) K/mcL Basophils # 0.1 (0.0-0.2) K/mcL PT 12.9 H (9.4-12.1) Seconds INR 1.2 APTT 30.4 (26.0-36.0) Seconds Sodium 133 L (136-145) mEq/L Potassium 3.4 L (3.5-5.1) mEq/L Chloride 98 (98-107) mEq/L Carbon Dioxide 24 (23-29) mEq/L BUN 48 H (8-23) mg/dL Creatinine 2.86 H (0.60-1.20) mg/dL Est GFR ( Amer) 20 L (> 60) Est GFR (Non-Af Amer) 16 L (> 60) BUN/Creatinine Ratio 17 (6-26) Glucose 369 H (70-105) mg/dL Calculated Osmolality 304 H (280-300) Calcium 8.4 L (8.6-10.3) mg/dL Troponin I < 0.03 (< 0.04) ng/mL Attestation Statement - Attestation Attestation: I examined this patient and my medical decision-making was reviewed with the Resident Physician. I agree with the documented findings, disposition and treatment plan as described except to the extent set forth below. Normal dialysis session yesterday, not eating much but able to drink. Clinically looks dry, hypotensive on arrival. After 750 cc of fluid, more than I would typically give to a dialysis patient, her IVC was still tiny and completely collapsed with normal insipriation (I was present for Dr. Leslie's ultrasound). The remainder of the liter was given. Blood pressure normalized.
[2018-03-02] MEDS: *HR* Heparin 5,000 UNIT/ML VIAL SQ SCH (05:17)
[2018-03-02] MEDS: *HR* OxyCODONE/APAP 5/325 TABLET PO PRN ×2 (05:18→12:43)
[2018-03-02] MEDS ORDERED: Regadenoson 0.4 MG/5 ML SYRINGE IVP ONE ×2 (05:37→10:35)
[2018-03-02] MEDS: Insulin LISPRO 300 UNITS/3 ML VIAL SQ SCH ×3 (08:29→16:49)
[2018-03-02] MEDS ORDERED: Renal Vitamin 1 MG CAPSULE PO SCH (09:00)
[2018-03-02 10:01] LABS: Bilirubin,Urine Negative (Negative); Blood,Urine Large (Negative); Clarity,Urine Turbid (Clear); Color,Urine Yellow (Yellow); Glucose,Urine (UA) Normal (Normal); Ketones,Urine Negative (Negative); Leukocyte Esterase,Urine Large (Negative); Nitrite,Urine Negative (Negative); PH,Urine 6.5 pH Units (5.0-8.0); Protein,Urine >=300 mg/dL (Neg-Trace); Specific Gravity,Urine 1.016 (1.010-1.025); Urobilinogen,Urine Normal (Normal)
[2018-03-02 10:04] LABS: Bacteria,Urine Many per hpf (None-Few); Hyaline Casts,Urine None Seen per lpf (None-Few); Squamous Epithelial Cell,Urine Many per lpf (None-Few); WBC,Urine TNTC per hpf (0-3)
[2018-03-02 10:18] LABS: RBC,Urine Present per hpf (0-3)
--- NOTE | 2018-03-02 12:21 | Nephrology Progress Note ---
Date of Encounter: 03/02/18 Time of Encounter: 12:22 - Assessment and Plan (1) ESRD needing dialysis Current Visit: Yes Status: Chronic Continue current regimen. MWShanti Luu. Renal vitamins, renal diet. Avoid nephrotoxins and renal dose medications. (2) Chest pain Current Visit: Yes Status: Acute Denies any CP at this time. Per primary team. Qualifiers: Chest pain type: unspecified Qualified Code(s): R07.9 - Chest pain, unspecified (3) Hypokalemia Current Visit: Yes Status: Acute 3.5, stable. (4) Diabetes mellitus Current Visit: Yes Status: Chronic Qualifiers: Diabetes mellitus type: type 2 Diabetes mellitus usp insulin use: with usp use Diabetes mellitus complication status: with kidney complications Diabetes mellitus complication detail: with chronic kidney disease Chronic kidney disease stage: on chronic dialysis Qualified Code(s) : E11.22 - Type 2 diabetes mellitus with diabetic chronic kidney disease; N18.6 - End stage renal disease; Z99.2 - Dependence on renal dialysis; Z99.2 - Dependence on renal dialysis; Z99.2 - Dependence on renal dialysis; N18.6 - End stage renal disease; N18.6 - End stage renal disease; N18.6 - End stage renal disease; Z79.4 - dedicated 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 (current) use of insulin; Z79.4 - MCFP (current ) use of insulin; Z79.4 - dedicated 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 (current) use of insulin; Z79.4 - dedicated 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 (current) use of insulin; Z99.2 - Dependence on renal dialysis Subjective Principal diagnosis: CP Interval history: Pt seen and examined. Objective - Vital Signs Vital signs: Vital Signs Temp Pulse Resp BP Pulse Ox 03/02/18 08:17 98.0 F 74 17 155/72 99 03/02/18 04:57 98.2 F 71 17 112/59 98 03/02/18 00:07 98.3 F 66 18 152/72 100 03/01/18 22:38 100 03/01/18 18:33 97.9 F 80 16 120/69 99 03/01/18 15:40 98.1 F 94 20 118/68 98 03/01/18 13:20 97.9 F 18 144/72 03/01/18 13:05 131/63 05/02/18 12:50 124/65 03/01/18 12:35 126/64 03/01/18 12:20 138/65 Intake and Output 03/01/18 03/02/18 03/02/18 23:59 07:59 15:59 Other: # Voids 1 Weight 75.296 kg Blood Glucose* 321 88 Patient Weight 03/02/18 23:59 Weight 75.296 kg - General Appearance General appearance: Present: chronically ill EENT: Present: ATNC, hearing intact, vision intact Neck: Present: supple Respiratory: Present: clear Cardiology: Present: normal S1, normal S2 Dialysis Vascular Access: Arteriovenous Fistula thrill: Yes bruit: Yes Additional Comments: Right upper arm Gastrointestinal: Present: normoactive bowel sounds, no tenderness, no guarding Integumentary: Present: no rash, warm and dry Neurologic: Present: alert and oriented x3 Psychiatric: Present: mood/affect appropriate, cooperative - Lab 03/01/18 02:04 03/01/18 02:04 Most recent lab results Calcium 8.1 mg/dL (8.6-10.3) L 03/01/18 02:04 Phosphorus 3.0 mg/dL (2.7-4.5) 03/02/18 05:16 Magnesium 1.7 mg/dL (1.6-2.6) 03/01/18 02:04 Consult Discharge Plan - Plan Referrals: Bartolo Washbunr MD [Primary Care Provider] -
[2018-03-02] MEDS: Folic Acid 1 MG TABLET PO SCH (12:30)
[2018-03-02] MEDS: Sucralfate 1 GM TABLET PO SCH ×2 (12:30→16:49)
[2018-03-02] MEDS: Metoprolol XL (24 HR) Succ 25 MG TAB.ER.24H PO SCH (12:32)
[2018-03-02] MEDS: Aspirin 81 MG TAB.CHEW PO SCH (12:32)
[2018-03-02] MEDS: tiZANidine 4 MG TABLET PO SCH (12:32)
[2018-03-02] MEDS: Insulin DETEMIR 100 UNIT/ML X5UNITS SQ SCH (12:42)
[2018-03-02] MEDS: Ondansetron 4 MG/2 ML VIAL IVP PRN (12:42)
--- NOTE | 2018-03-02 16:22 | Discharge Summary ---
- NOTES TO OUTPATIENT PROVIDER Notes to Outpatient Provider: Go for HD as scheduled before on M/W/F. f/u with PCP in one week. Your cardiac stress test came back as negative for ischemia Orders not resulted at time of discharge: Pending orders 03/01/18 05:41 Fecal Lactoferrin [RM] Routine 03/01/18 05:43 Culture,Stool [RM] Routine 03/02/18 09:02 NM avila perf SPECT multi [NM] Routine 03/03/18 04:00 Basic Metabolic Panel AM 0400 Complete Blood Count w/o Diff [HEME] AM 0400 Date of Encounter: 03/02/18 Time of Encounter: 16:17 - Discharge Diagnosis (1) Chest pain Priority: Primary Status: Acute Qualifiers: Chest pain type: unspecified Qualified Code(s): R07.9 - Chest pain, unspecified (2) Near syncope Priority: Primary Status: Acute (3) Diarrhea Priority: Secondary Status: Acute Qualifiers: Diarrhea type: unspecified type Qualified Code(s): R19.7 - Diarrhea, unspecified (4) ESRD needing dialysis Priority: Secondary Status: Chronic (5) Diabetes mellitus Priority: Secondary Status: Chronic Qualifiers: Diabetes mellitus type: type 2 Diabetes mellitus group home insulin use: with group home use Diabetes mellitus complication status: with kidney complications Diabetes mellitus complication detail: with chronic kidney disease Chronic kidney disease stage: on chronic dialysis Qualified Code(s) : E11.22 - Type 2 diabetes mellitus with diabetic chronic kidney disease; N18.6 - End stage renal disease; Z99.2 - Dependence on renal dialysis; Z99.2 - Dependence on renal dialysis; Z99.2 - Dependence on renal dialysis; N18.6 - End stage renal disease; N18.6 - End stage renal disease; N18.6 - End stage renal disease; Z79.4 - alf (current) use of insulin; Z79.4 - alf (current ) use of insulin; Z79.4 - termite treater (current) use of insulin; Z79.4 - termite treater (current) use of insulin; Z99.2 - Dependence on renal dialysis (6) Hypokalemia Priority: Secondary Status: Acute (7) CAD (coronary artery disease) of artery bypass graft Priority: Secondary Status: Chronic Qualifiers: [place] vs. transplanted heart: [place] heart Associated angina: without angina Qualified Code(s): I25.810 - Atherosclerosis of coronary artery bypass graft(s) without angina pectoris Hospital course: Ms. Dan is a 67 year old female with known PMH of coronary artery disease, diabetes, dialysis, GERD, hypertension and ESRD on HD, who was sent from assisted living facility for c/o- dizziness and near syncopal episode. Paitent reports that around 9.30pm last night, she got up to use the commode and noticed she had 2-3 episodes of diarrhea, loose watery and non bloody, after which she felt very dizzy and unsteady, and called a nurse to help her. She denied any SOB. Did have chest pain located sub sternally. Pt was admitted in the hospital and placed her on marketing database coordinator. Checked her serial troponin which were negative. Since she is high risk for ACS with ESRD and prior NH, did nuclear stress test which came back as negative for ischemia. Her diarrhea resolved completely. Pt denied any new complaints now. Pt was evaluated by Nephro, did HD y/d and recommend to continue HD M.W.F as an out pt. So will dc her home in stable condition today. - Time Spent with Patient Total time spent providing and/or coordinating discharge services: - Discharge Medications Home Medications: Amitriptyline [Elavil] 25 mg PO HS 07/10/15 [History] Cyclobenzaprine [Flexeril] 10 mg PO QAM 07/10/15 [History] Duloxetine [Cymbalta] 30 mg PO QAM 07/10/15 [History] Ergocalciferol (VITAMIN D2) [Vitamin D2 (50,000 UNIT)] 50,000 unit PO MO [History] Folic Acid 1 mg PO DAILY 07/10/15 [History] Insulin ASPART [NovoLOG] 0 unit SQ TIDWM 07/10/15 [History] Levothyroxine [Synthroid] 50 mcg PO QAM 07/10/15 [History] OxyCODONE/APAP 5/325 [Percocet 5/325] 1 tab PO TID PRN 07/10/15 [History] Pantoprazole Sodium [Protonix] 40 mg PO BID 07/10/15 [History] Solifenacin Succinate [Vesicare] 10 mg PO DAILY 07/10/15 [History] Tamsulosin [Flomax] 0.4 mg PO DAILY 07/10/15 [History] Zolpidem [Ambien] 10 mg PO HS 07/10/15 [History] Aspirin 81 mg PO DAILY #30 tab.chew 02/18/16 [Rx] Metoprolol XL (24 HR) Succ [Toprol Xl] 12.5 mg PO DAILY #30 tab.er.24h 02/18/16 [Rx] Docusate [Colace] 100 mg PO BID 10/14/16 [History] Albuterol Sulfate [Proair Hfa] 2 puff IH Q4H PRN 03/17/17 [History] Atorvastatin [Lipitor] 40 mg PO HS 03/17/17 [History] Insulin DETEMIR [Levemir] 10 unit SQ BID 03/17/17 [History] Ranitidine HCl [Heartburn Relief] 150 mg PO BID 03/17/17 [History] Clopidogrel [Plavix] 75 mg PO DAILY 05/09/17 [History] Ondansetron ODT [Zofran ODT] 4 mg PO Q8H PRN 05/09/17 [History] Sucralfate [Carafate] 1 gm PO 0730,1630 05/09/17 [History] Lisinopril [Zestril] 5 mg PO DAILY 07/05/17 [History] Diclofenac Sodium 1 appl TP DAILY PRN 03/01/18 [History] Folic Acid/Vit Bcomp,C [Renal-Elizabeth Tablet] 0.8 mg PO DAILY 03/01/18 [History] Furosemide [Lasix] 20 mg PO DAILY 03/01/18 [History] Hydrocortisone 1% CREAM [Cortaid] 1 appl TP DAILY PRN 03/01/18 [History] Tizanidine HCl 2 mg PO BID 03/01/18 [History] Triamcinolone Acet 0.1% CRM [Kenalog] 1 appl TP DAILY PRN 03/01/18 [History] Allergies/Adverse Reactions: 3 Allergy/AdvReac Type Severity Reaction Status Date / Time adhesive tape Allergy Redness of Verified 07/05/17 11:23 Skin latex Allergy Swelling Verified 07/05/17 11:23 of Lip/Tongue/Throat Sulfa (Sulfonamide Allergy Rash Verified 07/05/17 11:23 Antibiotics) Date of admission: 03/01/18 01:33 Primary care physician: Bartolo Washburn MD Consults: 03/01/18 07:30 Consult to Dialysis [CONS] ONCE - Constitutional Vitals: Temp Pulse Resp BP Pulse Ox 98.0 F 74 17 155/72 99 03/02/18 08:17 03/02/18 08:17 03/02/18 08:17 03/02/18 08:17 03/02/18 13:09 General appearance: Present: A&O X 3, answers questions appropriately - Head Head exam: Present: atraumatic, normal inspection - Neck Neck exam general surgery: Present: supple - Respiratory Respiratory exam: Present: decreased breath sounds. Absent: rales, respiratory distress, rhonchi, wheezes - Cardiovascular Cardiovascular exam: Present: RRR, +S1, +S2. Absent: tachycardia - GI/Abdominal GI/Abdominal exam: Present: normal bowel sounds, soft. Absent: rebound, rigid, tenderness - Extremities Exam Extremities exam: Absent: calf tenderness, pedal edema, tenderness - Back Exam Back exam: Absent: CVA tenderness (L), CVA tenderness (R) - Neurological Exam Neurological exam: Present: alert, oriented X3 - Psychiatric Psychiatric exam: Present: normal affect, normal mood - Patient Status Disposition: Home Health Service Condition: Good Overall status at discharge: patient is back to baseline - Discharge Instructions Follow Up With: Bartolo Washburn MD [Primary Care Provider] - - Diet and Activity Activity: increase activity as tolerated Diet: low salt diet
[2018-03-02 16:28] VITALS: BP 125/59
--- NOTE | 2018-03-02 16:42 | Physician Discharge Referral ---
Home Health/Hosp Referral Info Transfer to: Home Health Provider in Charge Post Discharge: PCP - Diagnosis (1) Chest pain Status: Acute (2) Near syncope Status: Acute (3) Diarrhea Status: Acute (4) ESRD needing dialysis Status: Chronic (5) Diabetes mellitus Status: Chronic (6) Hypokalemia Status: Acute (7) CAD (coronary artery disease) of artery bypass graft Status: Chronic - Respiratory Orders Smoking Cessation: Smoking cessation has been advised. For more information, call the [place] Tobacco Quit Line at 9-406-LDYC-NOW. - Services Needed Following services are medically necessary services: Nursing, Physical Therapy, Occupational Therapy - Transfer Medications Home Medications: Amitriptyline [Elavil] 25 mg PO HS 07/10/15 [History] Cyclobenzaprine [Flexeril] 10 mg PO QAM 07/10/15 [History] Duloxetine [Cymbalta] 30 mg PO QAM 07/10/15 [History] Ergocalciferol (VITAMIN D2) [Vitamin D2 (50,000 UNIT)] 50,000 unit PO MO [History] Folic Acid 1 mg PO DAILY 07/10/15 [History] Insulin ASPART [NovoLOG] 0 unit SQ TIDWM 07/10/15 [History] Levothyroxine [Synthroid] 50 mcg PO QAM 07/10/15 [History] OxyCODONE/APAP 5/325 [Percocet 5/325] 1 tab PO TID PRN 07/10/15 [History] Pantoprazole Sodium [Protonix] 40 mg PO BID 07/10/15 [History] Solifenacin Succinate [Vesicare] 10 mg PO DAILY 07/10/15 [History] Tamsulosin [Flomax] 0.4 mg PO DAILY 07/10/15 [History] Zolpidem [Ambien] 10 mg PO HS 07/10/15 [History] Aspirin 81 mg PO DAILY #30 tab.chew 02/18/16 [Rx] Metoprolol XL (24 HR) Succ [Toprol Xl] 12.5 mg PO DAILY #30 tab.er.24h 02/18/16 [Rx] Docusate [Colace] 100 mg PO BID 10/14/16 [History] Albuterol Sulfate [Proair Hfa] 2 puff IH Q4H PRN 03/17/17 [History] Atorvastatin [Lipitor] 40 mg PO HS 03/17/17 [History] Insulin DETEMIR [Levemir] 10 unit SQ BID 03/17/17 [History] Ranitidine HCl [Heartburn Relief] 150 mg PO BID 03/17/17 [History] Clopidogrel [Plavix] 75 mg PO DAILY 05/09/17 [History] Ondansetron ODT [Zofran ODT] 4 mg PO Q8H PRN 05/09/17 [History] Sucralfate [Carafate] 1 gm PO 0730,1630 05/09/17 [History] Lisinopril [Zestril] 5 mg PO DAILY 07/05/17 [History] Diclofenac Sodium 1 appl TP DAILY PRN 03/01/18 [History] Folic Acid/Vit Bcomp,C [Renal-Elizabeth Tablet] 0.8 mg PO DAILY 03/01/18 [History] Furosemide [Lasix] 20 mg PO DAILY 03/01/18 [History] Hydrocortisone 1% CREAM [Cortaid] 1 appl TP DAILY PRN 03/01/18 [History] Tizanidine HCl 2 mg PO BID 03/01/18 [History] Triamcinolone Acet 0.1% CRM [Kenalog] 1 appl TP DAILY PRN 03/01/18 [History] Allergies/Adverse Reactions: 3 Allergy/AdvReac Type Severity Reaction Status Date / Time adhesive tape Allergy Redness of Verified 07/05/17 11:23 Skin latex Allergy Swelling Verified 07/05/17 11:23 of Lip/Tongue/Throat Sulfa (Sulfonamide Allergy Rash Verified 07/05/17 11:23 Antibiotics) Certification: Further, I certify that my clinical findings support that this patient is homebound (i.e. absences from home require considerable and taxing effort and are for medical reasons or jew services or infrequently or short duration when for other reasons) because: Homebound Reason: Patient requires assistance of a person or device to safely leave home Attestation: My signature below is to certify that this patient is under my care and that I, or nurse practitioner, or a physician's photographer assistant working with me, has a face-to -face encounter with this patient.
[2018-03-03] MEDS ORDERED: Famotidine 20 MG TABLET PO SCH (09:00)
== END 2018-03-02 18:06 | disposition home health service (06) ==
LOC: 2ANU 21:57 → EMEROO 21:57 → 2ANU 03-01 02:35
PROVIDERS: ADMIT Internal Medicine; ATTEND Internal Medicine

== ENCOUNTER 2018-03-26 03:46 | Inpatient (IN) ==
[2018-03-26] MEDS ORDERED: *HR* FentaNYL (PF) 100 MCG/2 ML VIAL IVP ONE (03:58)
[2018-03-26] MEDS ORDERED: Ondansetron 4 MG/2 ML VIAL IVP ONE (03:58)
--- NOTE | 2018-03-26 04:04 | Emergency Department Note ---
Disposition Clinical Impression: Hypokalemia, Elevated troponin UTI (urinary tract infection) Qualifiers: Urinary tract infection type: site unspecified Hematuria presence: with hematuria Qualified Code(s): N39.0 - Urinary tract infection, site not specified Disposition: Admitted As Inpatient Condition: Fair Time of Disposition: 06:32 General Adult HPI - General Chief complaint: ED Abdominal Pain Stated complaint: kidney pain Time Seen by Provider: 03/26/18 03:48 Source: patient, EMS Mode of arrival: EMS Limitations: no limitations Nursing Notes Reviewed: Yes Vital Signs Reviewed: Yes - History of Present Illness HPI Narrative: Patient is a 67-year-old female that presents to the emergency with right flank pain. She states that this began this evening around 10:00. She states that is progressively been getting worse and rates it as a 10 out of 10. Patient reports some nausea but no vomiting. Patient states that she did take a pain pill at home that did not provide any relief. Patient states that she has a history of a stent on the right. She states that it was recently changed approximately 2 weeks ago. Patient denies any pain or burning with urination. Patient states that the pain is located in her right flank and radiates around into her abdomen and groin. Pain Scale: 10 - Related Data Home Medications Medication Instructions Recorded Confirmed Amitriptyline [Elavil] 25 mg PO HS 07/10/15 03/01/18 Cyclobenzaprine [Flexeril] 10 mg PO QAM 07/10/15 03/01/18 Duloxetine [Cymbalta] 30 mg PO QAM 07/10/15 03/01/18 Ergocalciferol (VITAMIN D2) 50,000 unit PO MO 07/10/15 03/01/18 [Vitamin D2 (50,000 UNIT)] Folic Acid 1 mg PO DAILY 07/10/15 03/01/18 Insulin ASPART [NovoLOG] 0 unit SQ TIDWM 07/10/15 03/01/18 Levothyroxine [Synthroid] 50 mcg PO QAM 07/10/15 03/01/18 OxyCODONE/APAP 5/325 [Percocet 1 tab PO TID PRN 07/10/15 03/01/18 5/325] Pantoprazole Sodium [Protonix] 40 mg PO BID 07/10/15 03/01/18 Solifenacin Succinate [Vesicare] 10 mg PO DAILY 07/10/15 03/01/18 Tamsulosin [Flomax] 0.4 mg PO DAILY 07/10/15 03/01/18 Zolpidem [Ambien] 10 mg PO HS 07/10/15 03/01/18 Docusate [Colace] 100 mg PO BID 10/14/16 03/01/18 Albuterol Sulfate [Proair Hfa] 2 puff IH Q4H PRN 03/17/17 03/01/18 Atorvastatin [Lipitor] 40 mg PO HS 03/17/17 03/01/18 Insulin DETEMIR [Levemir] 10 unit SQ BID 03/17/17 03/01/18 Ranitidine HCl [Heartburn Relief] 150 mg PO BID 03/17/17 03/01/18 Clopidogrel [Plavix] 75 mg PO DAILY 05/09/17 03/01/18 Ondansetron ODT [Zofran ODT] 4 mg PO Q8H PRN 05/09/17 03/01/18 Sucralfate [Carafate] 1 gm PO 0730,1630 05/09/17 03/01/18 Lisinopril [Zestril] 5 mg PO DAILY 07/05/17 03/01/18 Diclofenac Sodium 1 appl TP DAILY PRN 03/01/18 03/01/18 Folic Acid/Vit Bcomp,C [Renal-Elizabeth 0.8 mg PO DAILY 03/01/18 03/01/18 Tablet] Furosemide [Lasix] 20 mg PO DAILY 03/01/18 03/01/18 Hydrocortisone 1% CREAM [Cortaid] 1 appl TP DAILY PRN 03/01/18 03/01/18 Tizanidine HCl 2 mg PO BID 03/01/18 03/01/18 Triamcinolone Acet 0.1% CRM 1 appl TP DAILY PRN 03/01/18 03/01/18 [Kenalog] Previous Rx's Medication Instructions Recorded Aspirin 81 mg PO DAILY #30 tab.chew 02/18/16 Metoprolol XL (24 HR) Succ [Toprol 12.5 mg PO DAILY #30 tab.er.24h 02/18/16 Xl] Allergies Allergy/AdvReac Type Severity Reaction Status Date / Time adhesive tape Allergy Redness of Verified 03/22/18 14:50 Skin latex Allergy Swelling Verified 03/22/18 14:50 of Lip/Tongue/Throat Sulfa (Sulfonamide Allergy Rash Verified 03/22/18 14:50 Antibiotics) All systems ED: reviewed and negative except as stated. Constitutional: Denies: fever, chills Cardiovascular: Denies: chest pain Respiratory: Denies: dyspnea Gastrointestinal: Reports: abdominal pain, nausea. 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 Absent: respiratory distress, wheezes - Cardiovascular Cardiovascular exam: Present: regular rate, normal rhythm, normal heart sounds, +S1, +S2 - Abdominal Exam Abdominal exam: Present: soft, tenderness, normal bowel sounds Abdominal tenderness: Present: RLQ, suprapubic - Back Exam Back exam: Present: normal inspection, full ROM, CVA tenderness (R). Absent: CVA tenderness (L) - Neurological Exam Neurological exam: Present: alert, oriented X3 - Psychiatric Psychiatric exam: Present: normal affect, normal mood - Skin Skin exam: Present: warm, dry, intact Course Vital Signs Temperature 98.2 F 03/26/18 03:47 Pulse Rate 74 03/26/18 03:47 Respiratory Rate 20 03/26/18 03:47 Blood Pressure 172/92 03/26/18 03:47 O2 Sat by Pulse Oximetry 96 03/26/18 03:47 Temperature 98.2 F 03/26/18 03:47 Pulse Rate 66 03/26/18 05:44 Respiratory Rate 18 03/26/18 07:07 Blood Pressure 142/64 03/26/18 07:07 O2 Sat by Pulse Oximetry 95 03/26/18 05:44 Oxygen Delivery Oxygen Delivery Room Air Medical Decision Making - MDM Narrative Medical decision making narrative: The patient presenting to the emergency department with right flank pain and recent changing of her stent we will obtain a CBC, BMP, urinalysis and a CT scan. Patient is also had a recent biopsy of her lung for cancer we will obtain a chest x-ray to rule out any possible pulmonary pathology at this time. CT scan of the patient's abdomen and pelvis shows right-sided hydronephrosis concerning for possible stent male function. Her potassium was 2.4. This will be replaced here in the emergency department with 40 IV and 40 oral potassium. We will also give her a gram of magnesium. Chest x-ray showed a pleural effusion on the right. Patient did have an elevated creatinine of 2.60 however this appears to be at the patient's baseline. Patient had leukocyte esterase and bacteria in her urine. This will be treated with a gram of Rocephin prior to being admitted to the hospital. I called and spoke with the on-call urologist Dr. Welch and he stated that he would see her in consult today. A consult was placed in [facility] for urology. I called and spoke with the admitting hospitalist Dr. Atwood and he has accepted the patient to their service. The patient will be admitted to the hospital for further evaluation and management at this time. - Lab Data Lab results reviewed: Yes I reviewed the patient's lab results. Result diagrams: 03/26/18 04:20 03/26/18 04:20 Lab Results 03/26/18 03/26/18 03/26/18 Range/Units 04:20 04:20 05:00 WBC 8.8 (4.3-11.1) K/mcL RBC 3.82 (3.82-4.97) M/mcL Hgb 11.9 (11.5-15.4) g/dL Hct 34.1 L (35.3-44.9) % MCV 89.3 (83.0-100.0) fL MCH 31.2 (28.0-33.3) pg MCHC 34.9 (31.6-35.5) g/dL RDW 13.6 (11.5-14.5) % Plt Count 180 (140-400) K/mcL MPV 10.5 (9.4-12.4) fL Immature Gran % 0.2 (0-4) % Seg Neutrophils % 67.0 % Lymphocytes % 21.0 % Monocytes % 9.4 % Eosinophils % 1.9 % Basophils % 0.5 % Neutrophils # 5.9 (1.6-8.9) K/mcL Lymphocytes # 1.9 (0.6-4.6) K/mcL Monocytes # 0.8 (0.0-1.3) K/mcL Eosinophils # 0.2 (0.0-0.6) K/mcL Basophils # 0.0 (0.0-0.2) K/mcL Sodium 140 (136-145) mEq/L Potassium 2.4 L* (3.5-5.1) mEq/L Chloride 101 (98-107) mEq/L Carbon Dioxide 31 H (23-29) mEq/L BUN 30 H (8-23) mg/dL Creatinine 2.60 H (0.60-1.20) mg/dL Est GFR ( Amer) 22 L (> 60) Est GFR (Non-Af Amer) 18 L (> 60) BUN/Creatinine Ratio 12 (6-26) Glucose 62 L (70-105) mg/dL Calculated Osmolality 294 (280-300) Calcium 8.9 (8.6-10.3) mg/dL Magnesium 1.5 L (1.6-2.6) mg/dL Urine Color Yellow (Yellow) Urine Clarity Cloudy A (Clear) Urine pH 6.0 (5.0-8.0) pH Units Ur Specific [place] 1.015 (1.010-1.025) Urine Protein >=1000 H (Neg-Trace) mg/dL Urine Glucose (UA) 500 H (Normal) mg/dL Urine Ketones Negative (Negative) mg/dL Urine Blood Moderate H (Negative) Urine Nitrite Negative (Negative) Urine Bilirubin Negative (Negative) Urine Urobilinogen Normal (Normal) mg/dL Ur Leukocyte Esterase Moderate H (Negative) Urine Microscopic RBC 15-30 H (0-3) per hpf Urine Microscopic WBC 50-100 H (0-3) per hpf Ur Squamous Epith Cells Many H (None-Few) per lpf Urine Bacteria Many H (None-Few) per hpf Ur Culture Indicated? NO. A (NO) - Radiology Data Radiology results reviewed: Yes I reviewed the patient's radiology results. Abdomen/Pelvis CT 03/26/18 03:57 IMPRESSION: 1. Progressive right-sided hydroureteronephrosis with a stent in place suggests stent malfunction. 2. Urinary bladder wall thickening may indicate cystitis. 3. Persistent right pleural effusion. D/ / Benjy Glasgow MD / Benjy Glasgow MD Interpreting Provider: Benjy Glasgow MD Chest X-Ray 03/26/18 03:57 IMPRESSION: Pulmonary edema with right basilar pleuroparenchymal disease. D/ / Benjy Glasgow MD / Benjy Glasgow MD Interpreting Provider: Benjy Glasgow MD - EKG Data EKG #1 EKG attestation: Yes I reviewed and interpreted this EKG. EKG results narrative: EKG shows a sinus rhythm at a rate of 66 [place], [place] interval of 178, QRS duration of 125, QTC of 382. No STEMI is noted on EKG. There was T-wave inversions in lead V2 and T-wave flattening in V3, V4, V5 and V6. This is compared to previous EKG on 02/28/18 which showed a sinus rhythm at 92 bpm. Critical Care Time Critical Care Time: Yes Total Critical Care Time: 35 Attestation: Critical care performed: Time is exclusive of separately billable procedures. Time includes: direct patient care, patient reassessment, coordination of patient care, interpretation of data (laboratory data, radiology data, and respiratory data), review of patient's medical records, medical consultation and documentation of patient care. Procedures included in critical care time: Procedures excluded from critical care time:
[2018-03-26 04:36] LABS: Eosinophils % 1.9 %; Hematocrit 34.1 % (35.3-44.9); Hemoglobin 11.9 g/dL (11.5-15.4); Immature Granulocytes % 0.2 % (0-4); Mean Corpuscular HGB Conc 34.9 g/dL (31.6-35.5); Mean Corpuscular Hemoglobin 31.2 pg (28.0-33.3); Mean Corpuscular Volume 89.3 fL (83.0-100.0); Mean Platelet Volume 10.5 fL (9.4-12.4); Monocytes % 9.4 %; Platelet Count 180 K/mcL (140-400); Red Blood Count 3.82 M/mcL (3.82-4.97); Red Cell Distribution Width 13.6 % (11.5-14.5)
[2018-03-26 04:37] LABS: Basophils % 0.5 %; Eosinophils # 0.2 K/mcL (0.0-0.6); Lymphocytes # 1.9 K/mcL (0.6-4.6); Monocytes # 0.8 K/mcL (0.0-1.3); Neutrophils # 5.9 K/mcL (1.6-8.9)
--- NOTE | 2018-03-26 04:58 | Emergency Department Note ---
Disposition Clinical Impression: Hypokalemia, Elevated troponin, UTI (urinary tract infection) Disposition: Admitted As Inpatient Condition: Fair General Adult HPI - General Chief complaint: ED Abdominal Pain Stated complaint: kidney pain Time Seen by Provider: 03/26/18 03:48 Source: patient, EMS Mode of arrival: EMS Limitations: no limitations Nursing Notes Reviewed: Yes Vital Signs Reviewed: Yes - History of Present Illness Pain Scale: 10 - Related Data Home Medications Medication Instructions Recorded Confirmed Amitriptyline [Elavil] 25 mg PO HS 07/10/15 03/01/18 Cyclobenzaprine [Flexeril] 10 mg PO QAM 07/10/15 03/01/18 Duloxetine [Cymbalta] 30 mg PO QAM 07/10/15 03/01/18 Ergocalciferol (VITAMIN D2) 50,000 unit PO MO 07/10/15 03/01/18 [Vitamin D2 (50,000 UNIT)] Folic Acid 1 mg PO DAILY 07/10/15 03/01/18 Insulin ASPART [NovoLOG] 0 unit SQ TIDWM 07/10/15 03/01/18 Levothyroxine [Synthroid] 50 mcg PO QAM 07/10/15 03/01/18 OxyCODONE/APAP 5/325 [Percocet 1 tab PO TID PRN 07/10/15 03/01/18 5/325] Pantoprazole Sodium [Protonix] 40 mg PO BID 07/10/15 03/01/18 Solifenacin Succinate [Vesicare] 10 mg PO DAILY 07/10/15 03/01/18 Tamsulosin [Flomax] 0.4 mg PO DAILY 07/10/15 03/01/18 Zolpidem [Ambien] 10 mg PO HS 07/10/15 03/01/18 Docusate [Colace] 100 mg PO BID 10/14/16 03/01/18 Albuterol Sulfate [Proair Hfa] 2 puff IH Q4H PRN 03/17/17 03/01/18 Atorvastatin [Lipitor] 40 mg PO HS 03/17/17 03/01/18 Insulin DETEMIR [Levemir] 10 unit SQ BID 03/17/17 03/01/18 Ranitidine HCl [Heartburn Relief] 150 mg PO BID 03/17/17 03/01/18 Clopidogrel [Plavix] 75 mg PO DAILY 05/09/17 03/01/18 Ondansetron ODT [Zofran ODT] 4 mg PO Q8H PRN 05/09/17 03/01/18 Sucralfate [Carafate] 1 gm PO 0730,1630 05/09/17 03/01/18 Lisinopril [Zestril] 5 mg PO DAILY 07/05/17 03/01/18 Diclofenac Sodium 1 appl TP DAILY PRN 03/01/18 03/01/18 Folic Acid/Vit Bcomp,C [Renal-Elizabeth 0.8 mg PO DAILY 03/01/18 03/01/18 Tablet] Furosemide [Lasix] 20 mg PO DAILY 03/01/18 03/01/18 Hydrocortisone 1% CREAM [Cortaid] 1 appl TP DAILY PRN 03/01/18 03/01/18 Tizanidine HCl 2 mg PO BID 03/01/18 03/01/18 Triamcinolone Acet 0.1% CRM 1 appl TP DAILY PRN 03/01/18 03/01/18 [Kenalog] Previous Rx's Medication Instructions Recorded Aspirin 81 mg PO DAILY #30 tab.chew 02/18/16 Metoprolol XL (24 HR) Succ [Toprol 12.5 mg PO DAILY #30 tab.er.24h 02/18/16 Xl] Allergies Allergy/AdvReac Type Severity Reaction Status Date / Time adhesive tape Allergy Redness of Verified 03/22/18 14:50 Skin latex Allergy Swelling Verified 03/22/18 14:50 of Lip/Tongue/Throat Sulfa (Sulfonamide Allergy Rash Verified 03/22/18 14:50 Antibiotics) Constitutional: Denies: fever, chills Cardiovascular: Denies: chest pain Respiratory: Denies: dyspnea Gastrointestinal: Reports: abdominal pain, nausea. 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 history: Reports: no STRUCTURES MECHANIC history - Social History Smoking Status: Former smoker Smokeless Tobacco Status: No Alcohol use: Reports: none Drug use: Reports: none Physical Exam - General Limitations: no limitations General appearance: alert, in no apparent distress Course Vital Signs Temperature 98.2 F 03/26/18 03:47 Pulse Rate 74 03/26/18 03:47 Respiratory Rate 20 03/26/18 03:47 Blood Pressure 172/92 03/26/18 03:47 O2 Sat by Pulse Oximetry 96 03/26/18 03:47 Temperature 98.2 F 03/26/18 03:47 Pulse Rate 66 03/26/18 05:44 Respiratory Rate 18 03/26/18 07:07 Blood Pressure 142/64 03/26/18 07:07 O2 Sat by Pulse Oximetry 95 03/26/18 05:44 Oxygen Delivery Oxygen Delivery Room Air Medical Decision Making - Lab Data Result diagrams: 03/26/18 04:20 03/26/18 04:20 Lab Results 03/26/18 03/26/18 03/26/18 Range/Units 04:20 04:20 05:00 WBC 8.8 (4.3-11.1) K/mcL RBC 3.82 (3.82-4.97) M/mcL Hgb 11.9 (11.5-15.4) g/dL Hct 34.1 L (35.3-44.9) % MCV 89.3 (83.0-100.0) fL MCH 31.2 (28.0-33.3) pg MCHC 34.9 (31.6-35.5) g/dL RDW 13.6 (11.5-14.5) % Plt Count 180 (140-400) K/mcL MPV 10.5 (9.4-12.4) fL Immature Gran % 0.2 (0-4) % Seg Neutrophils % 67.0 % Lymphocytes % 21.0 % Monocytes % 9.4 % Eosinophils % 1.9 % Basophils % 0.5 % Neutrophils # 5.9 (1.6-8.9) K/mcL Lymphocytes # 1.9 (0.6-4.6) K/mcL Monocytes # 0.8 (0.0-1.3) K/mcL Eosinophils # 0.2 (0.0-0.6) K/mcL Basophils # 0.0 (0.0-0.2) K/mcL Sodium 140 (136-145) mEq/L Potassium 2.4 L* (3.5-5.1) mEq/L Chloride 101 (98-107) mEq/L Carbon Dioxide 31 H (23-29) mEq/L BUN 30 H (8-23) mg/dL Creatinine 2.60 H (0.60-1.20) mg/dL Est GFR ( Amer) 22 L (> 60) Est GFR (Non-Af Amer) 18 L (> 60) BUN/Creatinine Ratio 12 (6-26) Glucose 62 L (70-105) mg/dL Calculated Osmolality 294 (280-300) Calcium 8.9 (8.6-10.3) mg/dL Magnesium 1.5 L (1.6-2.6) mg/dL Urine Color Yellow (Yellow) Urine Clarity Cloudy A (Clear) Urine pH 6.0 (5.0-8.0) pH Units Ur Specific [place] 1.015 (1.010-1.025) Urine Protein >=1000 H (Neg-Trace) mg/dL Urine Glucose (UA) 500 H (Normal) mg/dL Urine Ketones Negative (Negative) mg/dL Urine Blood Moderate H (Negative) Urine Nitrite Negative (Negative) Urine Bilirubin Negative (Negative) Urine Urobilinogen Normal (Normal) mg/dL Ur Leukocyte Esterase Moderate H (Negative) Urine Microscopic RBC 15-30 H (0-3) per hpf Urine Microscopic WBC 50-100 H (0-3) per hpf Ur Squamous Epith Cells Many H (None-Few) per lpf Urine Bacteria Many H (None-Few) per hpf Ur Culture Indicated? NO. A (NO) Attestation Statement - Attestation Attestation: I, All Wallace MD, personally evaluated this patient and discussed their management with the resident physician. I reviewed the resident's note and agree with the documented findings, medical decision making, and plan of care. 67-year-old female presents to the emergency department with a complaint of acute onset of right flank pain radiating around to the right groin about 10 PM tonight. Patient has a history of chronic right ureteral stent for many years. She has the stent changed about every 4-6 months and it was just changed about 2 or 3 weeks ago. She had no problems until tonight. No gross hematuria. No fever. Some nausea and vomiting secondary to pain. Patient is on hemodialysis. On examination patient is a well-developed well-nourished elderly female in no acute distress. She is alert and oriented 3. There is no cyanosis or diaphoresis. Breath sounds are clear and equal bilaterally. Heart regular rate and rhythm. Abdomen is soft with normal bowel sounds. There is mild to moderate right lower quadrant tenderness and moderate right CVA tenderness. CT of the abdomen and pelvis shows: 1. Progressive right-sided hydroureteronephrosis with a stent in place suggests stent malfunction. 2. Urinary bladder wall thickening may indicate cystitis. 3. Persistent right pleural effusion. Labs reviewed. Potassium 2.4. Catheter urinalysis does reveal UTI. Dr. Weclh discussed the patient with the urologist utility person, Dr. Welch, and he recommended admission by the hospitalist and he will consult on the patient. The hospitalist, Dr. Atwood, was consulted and accepted admission of the patient.
[2018-03-26 05:00] LABS: Calcium 8.9 mg/dL (8.6-10.3); Potassium 2.4 mEq/L (3.5-5.1)
[2018-03-26 05:05] LABS: Bilirubin,Urine Negative (Negative); Blood,Urine Moderate (Negative); Clarity,Urine Cloudy (Clear); Color,Urine Yellow (Yellow); Glucose,Urine (UA) 500 mg/dL (Normal); Ketones,Urine Negative (Negative); Leukocyte Esterase,Urine Moderate (Negative); Nitrite,Urine Negative (Negative); Protein,Urine >=1000 mg/dL (Neg-Trace); Specific Gravity,Urine 1.015 (1.010-1.025); Urobilinogen,Urine Normal (Normal)
[2018-03-26 05:06] LABS: Bacteria,Urine Many per hpf (None-Few); Squamous Epithelial Cell,Urine Many per lpf (None-Few); WBC,Urine 50-100 per hpf (0-3)
[2018-03-26] MEDS ORDERED: Potassium Chloride Elixir 20 MEQ/15 ML UDC PO ONE (05:06)
[2018-03-26 05:16] LABS: RBC,Urine 15-30 per hpf (0-3)
[2018-03-26 05:55] LABS: Magnesium 1.5 mg/dL (1.6-2.6)
[2018-03-26] MEDS ORDERED: cefTRIAXone 1,000 MG in Water for inj. (sterile) 20 ML 10 ML IVP ONE (05:55)
--- NOTE | 2018-03-26 07:31 | Internal Med History&Physical ---
Date of Encounter: 03/26/18 Time of Encounter: 07:24 Internal Medicine - H&P: HPI Chief complaint: right flank pain Admitted From: Home Plans for Post Hospital Care: Home History of present illness: Ms. Dan is a 67 year old female with history of end-stage renal disease diabetes, CAD CABG her GERD presenting emergency room for right flank pain. Pain started to last night 10 PM, sudden onset 10 out of 10 sharp radiating to the back and the right groin area associated with chills and nausea. She denies diarrhea productive cough. No fever. Patient has history of right- sided hydronephrosis s/p stents placement. In the emergency room she was found WBC 8.4, potassium 2.4 magnesium 1.5, CT abdomen shows progressive right-sided hydronephrosis with stents placement suggest a malfunctioning. UA showed infections patient has significant right upper quandary and the right flank tenderness. Patient is going to be admitted for right-sided pyelonephritis, stents malfunctioning hydronephrosis urology was called. We will consult candles pourer for stage renal disease dialyzes Past Med Surg Social Fam HX - Past Medical History Medical history: cancer, diabetes, dialysis, GERD, myocardial infarction, renal disease, other Psychiatric history: depression - Past Surgical History Surgical History: appendectomy, cholecystectomy, coronary bypass (CABG), ureteral stent, other - Social History Smoking Status: Former smoker Smokeless Tobacco Status: No Alcohol use: none Drug use: none - Family History Mother Living Status: Hx Family Endocrine Disorder: (DM) Father Adopted: No Hx Family Cardiac Disorders: Yes ("heart troubles") Hx Family Cancer: Yes (Prostate cancer) Hx Family Endocrine Disorder: Yes (DM) Brother Hx Family Cardiac Disorders: Yes (CAD) Hx Family Cancer: Yes (lung cancer) Internal Medicine - H&P: Meds Amitriptyline [Elavil] 25 mg PO HS 07/10/15 [History] Cyclobenzaprine [Flexeril] 10 mg PO QAM 07/10/15 [History] Duloxetine [Cymbalta] 30 mg PO QAM 07/10/15 [History] Ergocalciferol (VITAMIN D2) [Vitamin D2 (50,000 UNIT)] 50,000 unit PO MO [History] Folic Acid 1 mg PO DAILY 07/10/15 [History] Insulin ASPART [NovoLOG] 0 unit SQ TIDWM 07/10/15 [History] Levothyroxine [Synthroid] 50 mcg PO QAM 07/10/15 [History] OxyCODONE/APAP 5/325 [Percocet 5/325] 1 tab PO TID PRN 07/10/15 [History] Pantoprazole Sodium [Protonix] 40 mg PO BID 07/10/15 [History] Solifenacin Succinate [Vesicare] 10 mg PO DAILY 07/10/15 [History] Tamsulosin [Flomax] 0.4 mg PO DAILY 07/10/15 [History] Zolpidem [Ambien] 10 mg PO HS 07/10/15 [History] Aspirin 81 mg PO DAILY #30 tab.chew 02/18/16 [Rx] Metoprolol XL (24 HR) Succ [Toprol Xl] 12.5 mg PO DAILY #30 tab.er.24h 02/18/16 [Rx] Docusate [Colace] 100 mg PO BID 10/14/16 [History] Albuterol Sulfate [Proair Hfa] 2 puff IH Q4H PRN 03/17/17 [History] Atorvastatin [Lipitor] 40 mg PO HS 03/17/17 [History] Insulin DETEMIR [Levemir] 10 unit SQ BID 03/17/17 [History] Ranitidine HCl [Heartburn Relief] 150 mg PO BID 03/17/17 [History] Clopidogrel [Plavix] 75 mg PO DAILY 05/09/17 [History] Ondansetron ODT [Zofran ODT] 4 mg PO Q8H PRN 05/09/17 [History] Sucralfate [Carafate] 1 gm PO 0730,1630 05/09/17 [History] Lisinopril [Zestril] 5 mg PO DAILY 07/05/17 [History] Diclofenac Sodium 1 appl TP DAILY PRN 03/01/18 [History] Folic Acid/Vit Bcomp,C [Renal-Elizabeth Tablet] 0.8 mg PO DAILY 03/01/18 [History] Furosemide [Lasix] 20 mg PO DAILY 03/01/18 [History] Hydrocortisone 1% CREAM [Cortaid] 1 appl TP DAILY PRN 03/01/18 [History] Tizanidine HCl 2 mg PO BID 03/01/18 [History] Triamcinolone Acet 0.1% CRM [Kenalog] 1 appl TP DAILY PRN 03/01/18 [History] 3 Allergy/AdvReac Type Severity Reaction Status Date / Time adhesive tape Allergy Redness of Verified 03/22/18 14:50 Skin latex Allergy Swelling Verified 03/22/18 14:50 of Lip/Tongue/Throat Sulfa (Sulfonamide Allergy Rash Verified 03/22/18 14:50 Antibiotics) All Systems PM: A 10-system review of systems was performed and is negative for pertinent findings except as documented above in the HPI. - Constitutional Vitals: Temp Pulse Resp BP Pulse Ox 98.2 F 66 18 142/64 95 03/26/18 03:47 03/26/18 05:44 03/26/18 07:07 03/26/18 07:07 03/26/18 05:44 General appearance: Present: A&O X 3, pleasant, answers questions appropriately Exam: CONSTITUTIONAL: Patient appears as an age appropriate female well developed, in no acute distress. EYES Clear sclerae, bilateral pupils are equal, reactive to light and accommodation. Extraocular movements are intact RESPIRATORY: No accessory muscle use, bilateral clear to auscultation, no wheezing, no crackles/rales. CARDIOVASCULAR: Regular heart rate, normal S1 and S2, no murmurs GASTROINTESTINAL: bowel sounds present, soft, no tenderness. No hepatosplenomegaly. right CVA tenderness MUSCULOSKELETAL: Joints in normal range of motion, no clubbing, no edema, no cyanosis. Bilateral peripheral pulses 2+ LYMPHATIC no lymphadenopathy in neck, groin and axilla bilaterally, no thyromegaly. NEUROLOGIC: CN II to XII are grossly intact, no focal neurological deficit. Deep tendon reflexes 2+ bilaterally. Normal light touch sensation to upper and lower extremity PSYCHIATRIC: Oriented x3, with good insight, mood is euthymic. No hallucinations or delusions. SKIN: Skin warm and dry, no rashes, no open wound. Internal Med - H&P Results - Labs CBC & Chem 7: 03/26/18 04:20 03/26/18 04:20 - Assessment and plan (1) Hydronephrosis due to obstruction of ureter Current Visit: Yes Status: Acute Assessment and plan: Patient has right-sided, ureteral stent placements, CT scan shows hydroureteral nephrosis suggesting stents malfunctioning. The ER physician called her urologist. consult placed (2) UTI (urinary tract infection) Current Visit: Yes Status: Acute Assessment and plan: Patient has significant right flank pain, associated was nausea, likely right pyelonephritis, Microbiology data reviewed, no resistant bacteria will cost continue ceftriaxone Qualifiers: Urinary tract infection type: site unspecified Hematuria presence: with hematuria Qualified Code(s): N39.0 - Urinary tract infection, site not specified; R31.9 - Hematuria, unspecified (3) ESRD needing dialysis Current Visit: Yes Status: Chronic Assessment and plan: Dialyzes on Tuesday consult a candles pourer (4) Hypokalemia Current Visit: Yes Status: Acute Assessment and plan: Chronic hypokalemia we will replace by oral (5) CAD (coronary artery disease) of artery bypass graft Current Visit: Yes Status: Chronic Assessment and plan: CAD stated post CABG in denies chest pain stable, continue home meds Qualifiers: [place] vs. transplanted heart: [place] heart Associated angina: without angina Qualified Code(s): I25.810 - Atherosclerosis of coronary artery bypass graft(s) without angina pectoris (6) Insulin dependent diabetes mellitus Current Visit: Yes Status: Chronic (7) GERD (gastroesophageal reflux disease) Current Visit: Yes Status: Chronic Qualifiers: Esophagitis presence: esophagitis presence not specified Qualified Code(s) : K21.9 - Gastro-esophageal reflux disease without esophagitis - Time Spent With Patient Total time spent is greater than 50% in coordination of care (as documented) at patient's floor/unit and/or counseling patient: Greater than 35 minutes
[2018-03-26] MEDS ORDERED: Ondansetron ODT 4 MG TAB.RAPDIS PO PRN (07:37)
[2018-03-26] MEDS ORDERED: DICLOFENAC SODIUM APPL TP PRN (07:37)
[2018-03-26] MEDS ORDERED: Naloxone 0.4 MG/ML INJ IVP PRN (07:41)
[2018-03-26] MEDS ORDERED: D5% in Water 1,000 ML IVC PRN (07:49)
[2018-03-26] MEDS ORDERED: Dextrose Gel 15 GM/37.5 ML TUBE PO PRN ×2 (07:49)
[2018-03-26] MEDS ORDERED: *HR* Dextrose 50 % in Water (Syg) 50 ML SYRINGE IVP PRN (07:49)
[2018-03-26] MEDS: Renal Vitamin 1 MG CAPSULE PO SCH (08:02)
[2018-03-26] MEDS: Aspirin 81 MG TAB.CHEW PO SCH (08:02)
[2018-03-26] MEDS: OXYCODONE Oral CONC 10 MG/0.5 ML ORAL.SYG PO PRN ×2 (08:03→15:37)
[2018-03-26] MEDS: Metoprolol XL (24 HR) Succ 25 MG TAB.ER.24H PO SCH (08:03)
[2018-03-26] MEDS: Furosemide 20 MG TABLET PO SCH (08:03)
[2018-03-26] MEDS: Folic Acid 1 MG TABLET PO SCH (08:03)
[2018-03-26] MEDS: *HR* Promethazine 25 MG/ML VIAL IVP PRN ×2 (08:08→15:33)
--- NOTE | 2018-03-26 09:15 | Urology - Consult Note ---
Date of Encounter: 03/26/18 Time of Encounter: 09:13 - Assessment and Plan (1) Hydronephrosis Current Visit: Yes Status: Acute Assessment and plan: I personally reviewed the CT scan. I agree that there is increased hydronephrosis and hydroureter despite the stent being in an appropriate position. Although there could be stent malfunction this is not a common occurrence. The increasing hydronephrosis could be due to decreased peristalsis secondary to infection, incomplete bladder emptying with reflux through the stent, etc. I recommend placing an indwelling catheter to promote efficient drainage from the stent and right collecting system. We will assess if this helps her discomfort. I agree with the current antibiotic choice. I am unsure if a urine culture was sent at admission but I ordered a new culture now. If the patient has continued flank pain tomorrow I will likely exchange the ureteral stent to see if this helps her symptoms. This can likely be done at the bedside. Her renal function is stable. White cell count not elevated. No obvious evidence of urosepsis or clinical instability at this time. Qualifiers: Hydronephrosis type: unspecified Qualified Code(s): N13.30 - Unspecified hydronephrosis Urology CN:HPI Consult date: 03/26/18 Reason for consult Urology: Hydronephrosis History of present illness: 67-year-old male. Known to Dr. Wu. Chronic indwelling ureteral stent for ureteral obstruction. Stent was last exchanged in January. Admitted for generalized illness and increasing right flank discomfort. She denies fever. Stable urinary symptoms. Past Med Surg Social Fam HX - Past Medical History Medical history: cancer, diabetes, dialysis, GERD, myocardial infarction, renal disease, other Psychiatric history: depression - Past Surgical History Surgical History: appendectomy, cholecystectomy, coronary bypass (CABG), ureteral stent, other - Social History Smoking Status: Former smoker Smokeless Tobacco Status: No Alcohol use: none Drug use: none - Family History Mother Living Status: Hx Family Endocrine Disorder: (DM) Father Adopted: No Hx Family Cardiac Disorders: Yes ("heart troubles") Hx Family Cancer: Yes (Prostate cancer) Hx Family Endocrine Disorder: Yes (DM) Brother Hx Family Cardiac Disorders: Yes (CAD) Hx Family Cancer: Yes (lung cancer) Medications and Allergies Amitriptyline [Elavil] 25 mg PO HS 07/10/15 [History] Cyclobenzaprine [Flexeril] 10 mg PO QAM 07/10/15 [History] Duloxetine [Cymbalta] 30 mg PO QAM 07/10/15 [History] Ergocalciferol (VITAMIN D2) [Vitamin D2 (50,000 UNIT)] 50,000 unit PO MO [History] Folic Acid 1 mg PO DAILY 07/10/15 [History] Insulin ASPART [NovoLOG] 0 unit SQ TIDWM 07/10/15 [History] Levothyroxine [Synthroid] 50 mcg PO QAM 07/10/15 [History] OxyCODONE/APAP 5/325 [Percocet 5/325] 1 tab PO TID PRN 07/10/15 [History] Pantoprazole Sodium [Protonix] 40 mg PO BID 07/10/15 [History] Solifenacin Succinate [Vesicare] 10 mg PO DAILY 07/10/15 [History] Tamsulosin [Flomax] 0.4 mg PO DAILY 07/10/15 [History] Zolpidem [Ambien] 10 mg PO HS 07/10/15 [History] Aspirin 81 mg PO DAILY #30 tab.chew 02/18/16 [Rx] Metoprolol XL (24 HR) Succ [Toprol Xl] 12.5 mg PO DAILY #30 tab.er.24h 02/18/16 [Rx] Docusate [Colace] 100 mg PO BID 10/14/16 [History] Albuterol Sulfate [Proair Hfa] 2 puff IH Q4H PRN 03/17/17 [History] Atorvastatin [Lipitor] 40 mg PO HS 03/17/17 [History] Insulin DETEMIR [Levemir] 10 unit SQ BID 03/17/17 [History] Ranitidine HCl [Heartburn Relief] 150 mg PO BID 03/17/17 [History] Clopidogrel [Plavix] 75 mg PO DAILY 05/09/17 [History] Ondansetron ODT [Zofran ODT] 4 mg PO Q8H PRN 05/09/17 [History] Sucralfate [Carafate] 1 gm PO 0730,1630 05/09/17 [History] Lisinopril [Zestril] 5 mg PO DAILY 07/05/17 [History] Diclofenac Sodium 1 appl TP DAILY PRN 03/01/18 [History] Folic Acid/Vit Bcomp,C [Renal-Elizabeth Tablet] 0.8 mg PO DAILY 03/01/18 [History] Furosemide [Lasix] 20 mg PO DAILY 03/01/18 [History] Hydrocortisone 1% CREAM [Cortaid] 1 appl TP DAILY PRN 03/01/18 [History] Tizanidine HCl 2 mg PO BID 03/01/18 [History] Triamcinolone Acet 0.1% CRM [Kenalog] 1 appl TP DAILY PRN 03/01/18 [History] 3 Allergy/AdvReac Type Severity Reaction Status Date / Time adhesive tape Allergy Redness of Verified 03/22/18 14:50 Skin latex Allergy Swelling Verified 03/22/18 14:50 of Lip/Tongue/Throat Sulfa (Sulfonamide Allergy Rash Verified 03/22/18 14:50 Antibiotics) Review of Systems - Constitutional fatigue, no fever(s) - EENT Nose, mouth and throat: no dizziness - Cardiovascular no chest pain - Respiratory no cough - Gastrointestinal abdominal pain - Genitourinary Genitourinary: flank pain - Musculoskeletal back pain - Integumentary no erythema - Neurological no confusion - Psychiatric no anxiety - Hematologic/Lymphatic no easy bleeding - Allergic/Immunologic no throat swelling Exam Initial Vital Signs Temp Pulse Resp BP Pulse Ox 98.2 F 74 20 172/92 96 03/26/18 03:47 03/26/18 03:47 03/26/18 03:47 03/26/18 03:47 03/26/18 03:47 - General physical appearance Present: no distress, chronically ill - Eyes Present: PERRL, conjunctiva is clear - ENT Present: normal nares - Neck Present: no masses - Respiratory Present: normal respiratory effort - Cardiovascular Cardiovascular exam IM: RRR - Abdomen Abdomen: Present: soft, suprapubic tenderness. Absent: masses - Integumentary Present: no rash - Neurologic Present: normal coordination. Absent: disoriented, confused - Additional Findings Mild right CVA tenderness Urology Results - Labs 03/26/18 04:20 03/26/18 04:20 Abnormal lab results Hct 34.1 % (35.3-44.9) L 03/26/18 04:20 Potassium 2.4 mEq/L (3.5-5.1) L* 03/26/18 04:20 Carbon Dioxide 31 mEq/L (23-29) H 03/26/18 04:20 BUN 30 mg/dL (8-23) H 03/26/18 04:20 Creatinine 2.60 mg/dL (0.60-1.20) H 03/26/18 04:20 Est GFR ( Amer) 22 (> 60) L 03/26/18 04:20 Est GFR (Non-Af Amer) 18 (> 60) L 03/26/18 04:20 Glucose 62 mg/dL (70-105) L 03/26/18 04:20 Magnesium 1.5 mg/dL (1.6-2.6) L 03/26/18 04:20 Urine Clarity Cloudy (Clear) A 03/26/18 05:00 Urine Protein >=1000 mg/dL (Neg-Trace) H 03/26/18 05:00 Urine Glucose (UA) 500 mg/dL (Normal) H 03/26/18 05:00 Urine Blood Moderate (Negative) H 03/26/18 05:00 Ur Leukocyte Esterase Moderate (Negative) H 03/26/18 05:00 Urine Microscopic RBC 15-30 per hpf (0-3) H 03/26/18 05:00 Urine Microscopic WBC 50-100 per hpf (0-3) H 03/26/18 05:00 Ur Squamous Epith Cells Many per lpf (None-Few) H 03/26/18 05:00 Urine Bacteria Many per hpf (None-Few) H 03/26/18 05:00 Ur Culture Indicated? NO. (NO) A 03/26/18 05:00 All other labs normal. Consult Discharge Plan - Plan Referrals: Bartolo Washburn MD [Primary Care Provider] -
[2018-03-26] MEDS: Insulin DETEMIR 100 UNIT/ML X5UNITS SQ SCH ×2 (09:48→21:01)
[2018-03-26] MEDS: Ondansetron 4 MG/2 ML VIAL IVP SCH ×2 (10:58→17:25)
[2018-03-26] MEDS: *HR* OxyCODONE/APAP 5/325 TABLET PO PRN ×2 (10:58→21:00)
[2018-03-26] MEDS: Insulin LISPRO 300 UNITS/3 ML VIAL SQ SCH ×3 (12:19→21:01)
--- NOTE | 2018-03-26 13:13 | Nephrology Consult Note ---
Date of Encounter: 03/26/18 Time of Encounter: 13:13 Assessment and Plan (1) ESRD needing dialysis Current Visit: Yes Status: Chronic HD MWF. Renal vitamins. Renal dose medications. Renal diet. Additional dialysis and ultrafiltration as needed. No acute need for dialysis. Plan on dialysis Tuesday. (2) Hydronephrosis due to obstruction of ureter Current Visit: Yes Status: Acute Urology following. This is possibly secondary to malposition stent. (3) Hypokalemia Current Visit: Yes Status: Acute Potassium replacement ordered. (4) UTI (urinary tract infection) Current Visit: Yes Status: Acute This appears to be pyelonephritis. Await culture data. Continue antibiotics. Qualifiers: Urinary tract infection type: site unspecified Hematuria presence: with hematuria Qualified Code(s): N39.0 - Urinary tract infection, site not specified; R31.9 - Hematuria, unspecified History of Present Illness - Reason for Consult Consult date: 03/26/18 end stage renal disease - Chief Complaint ESRD - History of Present Illness Ms. Dan is a 67 yo woman with a PMH of ESRD who dialyzes MWF at the [facility] unit in [place], [place] under the direction of [facility]'s Dr. Griffin via a right upper arm graft who presents secondary to abdominal pain. She presents secondary to pain and was found to have hydronephrosis that was felt to be secondary to a malpositioned ureteral stent. At the time my evaluation she was still quite uncomfortable complaining of flank pain mostly in the right. She denies chest pain or shortness of breath. Her last dialysis was the Tuesday prior to admission. Past Med Surg Social Fam HX - Past Medical History Medical history: cancer, diabetes, dialysis, GERD, myocardial infarction, renal disease, other Psychiatric history: depression - Past Surgical History Surgical History: appendectomy, cholecystectomy, coronary bypass (CABG), ureteral stent, other - Social History Smoking Status: Former smoker Smokeless Tobacco Status: No Alcohol use: none Drug use: none - Family History Mother Living Status: Hx Family Endocrine Disorder: (DM) Father Adopted: No Hx Family Cardiac Disorders: Yes ("heart troubles") Hx Family Cancer: Yes (Prostate cancer) Hx Family Endocrine Disorder: Yes (DM) Brother Hx Family Cardiac Disorders: Yes (CAD) Hx Family Cancer: Yes (lung cancer) Medications and Allergies Folic Acid 1 mg PO DAILY 07/10/15 [History] Levothyroxine [Synthroid] 50 mcg PO QAM 07/10/15 [History] Pantoprazole Sodium [Protonix] 40 mg PO BID 07/10/15 [History] Solifenacin Succinate [Vesicare] 10 mg PO DAILY 07/10/15 [History] Aspirin 81 mg PO DAILY #30 tab.chew 02/18/16 [Rx] Metoprolol XL (24 HR) Succ [Toprol Xl] 12.5 mg PO DAILY #30 tab.er.24h 02/18/16 [Rx] Docusate [Colace] 100 mg PO BID 10/14/16 [History] Albuterol Sulfate [Proair Hfa] 2 puff IH Q4H PRN 03/17/17 [History] Atorvastatin [Lipitor] 40 mg PO HS 03/17/17 [History] Ranitidine HCl [Heartburn Relief] 150 mg PO BID 03/17/17 [History] Clopidogrel [Plavix] 75 mg PO DAILY 05/09/17 [History] Ondansetron ODT [Zofran ODT] 4 mg PO Q8H PRN 05/09/17 [History] Sucralfate [Carafate] 1 gm PO 0730,1630 05/09/17 [History] Lisinopril [Zestril] 5 mg PO DAILY 07/05/17 [History] Diclofenac Sodium 1 appl TP DAILY PRN 03/01/18 [History] Folic Acid/Vit Bcomp,C [Renal-Elizabeth Tablet] 0.8 mg PO DAILY 03/01/18 [History] Furosemide [Lasix] 20 mg PO DAILY 03/01/18 [History] Hydrocortisone 1% CREAM [Cortaid] 1 appl TP DAILY PRN 03/01/18 [History] Tizanidine HCl 2 mg PO BID 03/01/18 [History] Triamcinolone Acet 0.1% CRM [Kenalog] 1 appl TP DAILY PRN 03/01/18 [History] Amitriptyline [Elavil] 25 mg PO HS 03/26/18 [History] Cyclobenzaprine [Flexeril] 10 mg PO QAM 03/26/18 [History] DULoxetine [Cymbalta] 30 mg PO DAILY 03/26/18 [History] Ergocalciferol (VITAMIN D2) [Drisdol] 50,000 unit PO MO 03/26/18 [History] Insulin ASPART [NovoLOG] 0 unit SQ TIDWM 03/26/18 [History] Insulin DETEMIR [Levemir] 10 unit SQ BID 03/26/18 [History] OxyCODONE/APAP 5/325 [Percocet 5/325 MG] 1 tab PO TID PRN 03/26/18 [History] Tamsulosin [Flomax] 0.4 mg PO DAILY 03/26/18 [History] Zolpidem [Ambien] 10 mg PO HS 03/26/18 [History] 3 Allergy/AdvReac Type Severity Reaction Status Date / Time adhesive tape Allergy Redness of Verified 03/22/18 14:50 Skin latex Allergy Swelling Verified 03/22/18 14:50 of Lip/Tongue/Throat Sulfa (Sulfonamide Allergy Rash Verified 03/22/18 14:50 Antibiotics) Review of Systems All Systems: reviewed and no additional remarkable complaints except as stated ( As per the history of present illness.) Exam - Vital Signs Vital signs: Initial Vital Signs Temp Pulse Resp BP Pulse Ox 98.2 F 74 20 172/92 96 03/26/18 03:47 03/26/18 03:47 03/26/18 03:47 03/26/18 03:47 03/26/18 03:47 Vital Signs - Last 8 Hours Temp Pulse Resp BP Pulse Ox 03/26/18 11:49 98.3 F 67 18 177/68 92 03/26/18 07:46 98.2 F 62 15 157/71 97 03/26/18 07:07 18 142/64 Intake and Output 03/25/18 03/26/18 03/26/18 23:59 07:59 15:59 Intake Total 200 / 200 Balance 200 / 200 Intake: IV Fluids 200 / 200 Potassium Chloride 10 mEq/100mL 200 / 200 10 meq In 100 ml @ 100 mls/hr IVPB Q1H [facility] Rx#:[id number] Other: Blood Glucose* 67 99 - General Appearance General appearance: well-developed, well-nourished EENT: ATNC Neck: supple Respiratory: clear Cardiology: no edema, regular rate, regular rhythm - Dialysis Access Dialysis Vascular Access: Arteriovenous Graft thrill: Yes bruit: Yes Gastrointestinal: normoactive bowel sounds Integumentary: warm and dry Neurologic: alert and oriented x3 Musculoskeletal: no cyanosis Psychiatric: mood/affect appropriate Results - Lab Results 03/26/18 04:20 03/26/18 04:20 Most recent lab results Calcium 8.9 mg/dL (8.6-10.3) 03/26/18 04:20 Magnesium 1.5 mg/dL (1.6-2.6) L 03/26/18 04:20 Consult Discharge Plan - Plan Referrals: Bartolo Washburn MD [Primary Care Provider] -
[2018-03-27] MEDS: Ondansetron 4 MG/2 ML VIAL IVP SCH ×4 (00:57→17:18)
[2018-03-27] MEDS ORDERED: 0.9 % Sodium Chloride 2,000 ML ONE (04:17)
[2018-03-27 04:42] LABS: Hematocrit 40.4 % (35.3-44.9); Hemoglobin 13.2 g/dL (11.5-15.4); Mean Corpuscular HGB Conc 32.7 g/dL (31.6-35.5); Mean Corpuscular Hemoglobin 29.8 pg (28.0-33.3); Mean Corpuscular Volume 91.2 fL (83.0-100.0); Mean Platelet Volume 10.8 fL (9.4-12.4); Platelet Count 168 K/mcL (140-400); Red Blood Count 4.43 M/mcL (3.82-4.97)
[2018-03-27] MEDS ORDERED: 0.9 % Sodium Chloride 250 ML IVC PRN (04:46)
[2018-03-27] MEDS ORDERED: 0.9 % Sodium Chloride 1,000 ML PRIME SCH (05:00)
[2018-03-27 05:03] LABS: Magnesium 1.9 mg/dL (1.6-2.6); Potassium 3.4 mEq/L (3.5-5.1)
[2018-03-27] MEDS: *HR* OxyCODONE/APAP 5/325 TABLET PO PRN (06:51)
[2018-03-27 07:33] LABS: Hepatitis B Surface Antigen Nonreactive (Nonreactive)
[2018-03-27 08:33] LABS: Hepatitis B Surface Antibody 8.99 mIU/mL
--- NOTE | 2018-03-27 08:44 | Nephrology Progress Note ---
Date of Encounter: 03/27/18 Time of Encounter: 08:44 - Assessment and Plan (1) ESRD needing dialysis Current Visit: Yes Status: Chronic HD MWF. Renal vitamins. Renal dose medications. Renal diet. Additional dialysis and ultrafiltration as needed. Patient was seen on dialysis today. (2) Hydronephrosis due to obstruction of ureter Current Visit: Yes Status: Acute Per urology. (3) Hypokalemia Current Visit: Yes Status: Resolved Replace as needed. (4) UTI (urinary tract infection) Current Visit: Yes Status: Acute Antibiotics . Qualifiers: Urinary tract infection type: site unspecified Hematuria presence: with hematuria Qualified Code(s): N39.0 - Urinary tract infection, site not specified; R31.9 - Hematuria, unspecified Subjective Principal diagnosis: ESRD Interval history: Patient was seen and evaluated on dialysis. She still has her complaint of flank pain. Otherwise no new symptoms. Objective - Vital Signs Vital signs: Vital Signs Temp Pulse Resp BP Pulse Ox 03/27/18 05:46 98.2 F 89 20 97 03/27/18 01:40 98.4 F 68 18 175/76 100 03/26/18 21:05 90 03/26/18 19:48 98.5 F 76 18 189/92 90 03/26/18 17:01 98.9 F 72 16 194/86 94 03/26/18 11:49 98.3 F 67 18 177/68 92 Intake and Output 03/26/18 03/27/18 03/27/18 23:59 07:59 15:59 Intake Total 0 / 0 100 / 100 Output Total 200 / 200 Balance 0 / 0 -100 / -100 Intake: Oral 0 / 0 100 / 100 Output: Urine 200 / 200 Other: # Voids 0 0 Weight 78.7 kg Blood Glucose* 111 Patient Weight 03/27/18 23:59 Weight 78.7 kg - General Appearance General appearance: Present: well-developed, well-nourished EENT: Present: ATNC Respiratory: Present: clear Cardiology: Present: no edema, regular rate Integumentary: Present: warm and dry Neurologic: Present: alert and oriented x3 - Lab 03/27/18 04:14 03/27/18 04:14 Most recent lab results Calcium 9.0 mg/dL (8.6-10.3) 03/27/18 04:14 Magnesium 1.9 mg/dL (1.6-2.6) 03/27/18 04:14 Consult Discharge Plan - Plan Referrals: Bartolo Washburn MD [Primary Care Provider] -
--- NOTE | 2018-03-27 08:50 | Internal Med Progress Note ---
<LuzmariarobinSebastian looney - Last Filed: 03/27/18 11:12> Date of Encounter: 03/27/18 Time of Encounter: 08:46 - Assessment and plan (1) Hydronephrosis Current Visit: Yes Status: Acute Assessment and plan: CT abd/pelvis revealed progressive right sided hydroureteronephrosis with sten in place and urinary bladder wall thickening. Urology note reviewed. Stent appeared to be in appropriate position, though rare possibility of stent malfunction. Most likely secondary to decreased peristalsis from infection. Plan to place indwelling catheter. Consider exchanging stent if still discomfort. -Place indwelling catheter -Pain management -Anti nausea medications. -Continue monitoring labs. -Urine culture received, pending results. -Continue with Rocephin d2. Qualifiers: Hydronephrosis type: unspecified Qualified Code(s): N13.30 - Unspecified hydronephrosis (2) UTI (urinary tract infection) Current Visit: Yes Status: Acute Assessment and plan: UTI vs Pyelonephritis with right hydroureter on CT abd/pelvis. -Urine culture received, pending results. -Continue with Rocephin d2. -Urology on board Qualifiers: Urinary tract infection type: site unspecified Hematuria presence: with hematuria Qualified Code(s): N39.0 - Urinary tract infection, site not specified; R31.9 - Hematuria, unspecified (3) ESRD needing dialysis Current Visit: Yes Status: Chronic Assessment and plan: Cr 3.17 this morning, Known history of CKD dialysis dependent Right upper extremity AV fistula -Nephrology on board, Dialysis MWF -Continue monitoring labs. -Urology on board for hydronephrosis and ureter and complication of UTI vs pyelo. (4) Nausea and vomiting Current Visit: Yes Status: Acute Assessment and plan: Nausea and vomiting overnight, likely secondary to pain vs ongoing uti vs pyelo. -Zofran and phenergan ordered. Qualifiers: Vomiting type: unspecified Vomiting Intractability: unspecified Qualified Code(s): R11.2 - Nausea with vomiting, unspecified (5) Hypokalemia Current Visit: Yes Status: Resolved Assessment and plan: Resolved. Potassium 3.4 this morning, 2.4 on arrival. Received 40mEq potassium IVPB. Continue monitoring labs. Dialysis MWF. (6) Diabetes mellitus Current Visit: Yes Status: Chronic Assessment and plan: Known history of insulin dependent diabetes. Glucose 132 this morning. Continue with insulin sliding scale and basal insulin. ADA Cardiac Renal diet. 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 Appt scheduled for TuesdayApril 05. Qualifiers: Laterality: right Lung location: unspecified part of lung Qualified Code( s): C34.91 - Malignant neoplasm of unspecified part of right bronchus or lung (8) CAD (coronary artery disease) of artery bypass graft Current Visit: Yes Status: Chronic Assessment and plan: History of CABG Continue home medications for chronic disease management. Qualifiers: [place] vs. transplanted heart: [place] heart Associated angina: without angina Qualified Code(s): I25.810 - Atherosclerosis of coronary artery bypass graft(s) without angina pectoris (9) Pulmonary edema Current Visit: Yes Status: Acute Assessment and plan: CXR revealed pulmonary edema and R basilar pleuroparenchymal disease. No current Pulmonary complaints. Denies chest pain, shortness of breath, cough , increased sputum, or hemoptysis. History of MA in the past. BNP 1930 Last Echo 03/01/18: EF 60%, mild LV diastolic dysfunction, normal RV, no eidence of pulm htn, no significant valvular dysfunction. Also noted on 01/2018 CT scan. May be related to malignancy>dialysis. Continue with dialysis as scheduled MWF. Nephro on board. Qualifiers: Chronicity: acute Qualified Code(s): J81.0 - Acute pulmonary edema - Time Spent With Patient Total time spent is greater than 50% in coordination of care (as documented) at patient's floor/unit and/or counseling patient: - Subjective Interval history: Ms. Dan was seen while completing dialysis this morning. She reports constant sharp right sided flank pain still despite receiving pain medications, also developed some vomiting last night through this morning and reports that nausea medication has helped minimally, also having chills constantly. Has not had a indwelling catheter placed yet. Patient denies fevers, sweats, headaches , changes in vision or hearing, chest pain, shortness of breath, cough, changes in bowels or bladder, weakness, or loss of sensation. - Constitutional Vitals: Temp Pulse Resp BP Pulse Ox 98.2 F 89 20 175/76 97 03/27/18 05:46 03/27/18 05:46 03/27/18 05:46 03/27/18 01:40 03/27/18 05:46 General appearance: Present: A&O X 3, pleasant, no acute distress, answers questions appropriately Exam: ill appearing - Head Head exam: Present: atraumatic, normal inspection, normocephalic - Eye Eye exam: Present: EOMI, normal appearance - ENT ENT exam: Present: mucous membranes moist, normal exam - Neck Neck exam general surgery: Present: full ROM, normal inspection, supple, trachea midline. Absent: lymphadenopathy - Respiratory Respiratory exam: Present: rales (minimal bilateral lower). Absent: respiratory distress, rhonchi, wheezes - Cardiovascular Cardiovascular exam: Present: RRR, +S1, +S2. Absent: JVD - GI/Abdominal GI/Abdominal exam: Present: normal bowel sounds, soft, tenderness (right flank tenderness with minimal palpation, no epigastric or periumbilical tenderness.). Absent: distended, guarding - Extremities Exam Extremities exam: Present: full ROM, normal inspection, warm, radial pulses palpable and symmetrical. Absent: pedal edema Additional comments: Right AV fistula in place, attached to dialysis tubing at this time. - Skin Skin exam: Present: dry, intact, normal color, warm Internal Medicine: Result - Labs CBC & Chem 7: 03/27/18 04:14 03/27/18 04:14 Labs: Short CBC 03/27/18 Range/Units 04:14 WBC 9.8 (4.3-11.1) K/mcL Hgb 13.2 (11.5-15.4) g/dL Hct 40.4 (35.3-44.9) % Plt Count 168 (140-400) K/mcL BMP 03/27/18 04:14 Sodium 138 Potassium 3.4 L D Chloride 103 Carbon Dioxide 25 BUN 33 H Creatinine 3.17 H Glucose 132 H Calcium 9.0 Consult Discharge Plan - Plan Referrals: Bartolo Washburn MD [Primary Care Provider] - <Deyvi Torrez H - Last Filed: 03/27/18 11:27> Date of Encounter: 03/27/18 - Assessment and plan (1) ESRD needing dialysis Current Visit: Yes Status: Chronic (2) Diabetes mellitus Current Visit: Yes Status: Chronic Qualifiers: Diabetes mellitus type: type 2 Diabetes mellitus fdc insulin use: with dedicated 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 use Diabetes mellitus complication status: with kidney complications Diabetes mellitus complication detail: with chronic kidney disease Chronic kidney disease stage: on chronic dialysis Qualified Code(s) : E11.22 - Type 2 diabetes mellitus with diabetic chronic kidney disease; N18.6 - End stage renal disease; 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; Z99.2 - Dependence on renal dialysis (3) Hypokalemia Current Visit: Yes Status: Resolved (4) Nausea and vomiting Current Visit: Yes Status: Acute Qualifiers: Vomiting type: unspecified Vomiting Intractability: unspecified Qualified Code(s): R11.2 - Nausea with vomiting, unspecified (5) UTI (urinary tract infection) Current Visit: Yes Status: Acute Qualifiers: Urinary tract infection type: site unspecified Hematuria presence: with hematuria Qualified Code(s): N39.0 - Urinary tract infection, site not specified; R31.9 - Hematuria, unspecified (6) CAD (coronary artery disease) of artery bypass graft Current Visit: Yes Status: Chronic Qualifiers: [place] vs. transplanted heart: [place] heart Associated angina: without angina Qualified Code(s): I25.810 - Atherosclerosis of coronary artery bypass graft(s) without angina pectoris (7) Hydronephrosis Current Visit: Yes Status: Acute Qualifiers: Hydronephrosis type: unspecified Qualified Code(s): N13.30 - Unspecified hydronephrosis (8) Lung cancer Current Visit: Yes Status: Acute Qualifiers: Laterality: right Lung location: unspecified part of lung Qualified Code( s): C34.91 - Malignant neoplasm of unspecified part of right bronchus or lung (9) Pulmonary edema Current Visit: Yes Status: Acute Qualifiers: Chronicity: acute Qualified Code(s): J81.0 - Acute pulmonary edema - Time Spent With Patient Total time spent is greater than 50% in coordination of care (as documented) at patient's floor/unit and/or counseling patient: - Constitutional Vitals: Temp Pulse Resp BP Pulse Ox 98.2 F 98 16 142/83 97 03/27/18 09:50 03/27/18 09:50 03/27/18 09:50 03/27/18 09:50 03/27/18 09:50 Internal Medicine: Result - Labs CBC & Chem 7: 03/27/18 04:14 03/27/18 04:14 Labs: Short CBC 03/27/18 Range/Units 04:14 WBC 9.8 (4.3-11.1) K/mcL Hgb 13.2 (11.5-15.4) g/dL Hct 40.4 (35.3-44.9) % Plt Count 168 (140-400) K/mcL BMP 03/27/18 04:14 Sodium 138 Potassium 3.4 L D Chloride 103 Carbon Dioxide 25 BUN 33 H Creatinine 3.17 H Glucose 132 H Calcium 9.0 - Attending Attestation Intractable right flank pain and nausea secondary to right hydronephrosis possibly from urinary retention/reflux, status post right ureteral stent Followed by urology, recommended Khanna catheter which has improved the patient' s symptoms Possible cystitis with history of prior infections with multiple infectious agents Stable on Rocephin day #2 Continue IV fluids, culture pending End-stage renal disease on hemodialysis still making urine Hypokalemia, repleted. Potassium is 3.4, will not give additional doses due to history of hemodialysis History of right lung squamous cell carcinoma scheduled to have a PET scan as an outpatient on Tuesday next Followed by oncology Right pleural effusion likely related to malignancy CT scan of the abdomen showed:1. Progressive right-sided hydroureteronephrosis with a stent in place suggests stent malfunction. 2. Urinary bladder wall thickening may indicate cystitis. 3. Persistent right pleural effusion. I examined this patient and my medical decision-making was reviewed with the Resident Physician. I agree with the documented findings, disposition and treatment plan as described except to the extent set forth below.
--- NOTE | 2018-03-27 09:35 | Urology Progress Note ---
Date of Encounter: 03/27/18 Time of Encounter: 09:32 - Assessment and Plan (1) Hydronephrosis Current Visit: Yes Status: Acute Assessment and plan: I again reiterated to the patient that it is possible that the increased hydronephrosis and flank pain is secondary to incomplete bladder emptying, elevated bladder pressures which will reflux urine up the stent and can cause discomfort. I strongly recommend an indwelling catheter to see if this helps the flank discomfort prior to proceeding with a stent exchange which is a more invasive procedure. I discussed with the patient that the catheters used in the hospital are no longer latex based and if the catheter causes her discomfort it can be removed and we can proceed with a different course of action. She is now amenable to trying the indwelling catheter. Will reevaluate the patient in the morning to see if her flank pain has decreased. Qualifiers: Hydronephrosis type: unspecified Qualified Code(s): N13.30 - Unspecified hydronephrosis Progress Note Narrative: Patient still states he has flank pain which is 8 out of 10. She refused a Khanna catheter placement yesterday because she states she is allergic to latex and the catheters "hurt " Objective Initial Vital Signs Temp Pulse Resp BP Pulse Ox 98.2 F 74 20 172/92 96 03/26/18 03:47 03/26/18 03:47 03/26/18 03:47 03/26/18 03:47 03/26/18 03:47 - General physical appearance Present: no distress - Additional Exam Patient was evaluated in the dialysis unit. - Labs 03/27/18 04:14 03/27/18 04:14 Diabetes panel 03/27/18 Range/Units 04:14 Sodium 138 (136-145) mEq/L Potassium 3.4 L D (3.5-5.1) mEq/L Chloride 103 (98-107) mEq/L Carbon Dioxide 25 (23-29) mEq/L BUN 33 H (8-23) mg/dL Creatinine 3.17 H (0.60-1.20) mg/dL Glucose 132 H (70-105) mg/dL Calcium 9.0 (8.6-10.3) mg/dL Calcium panel 03/27/18 Range/Units 04:14 Calcium 9.0 (8.6-10.3) mg/dL Pituitary panel 05/28/18 Range/Units 04:14 Sodium 138 (136-145) mEq/L Potassium 3.4 L D (3.5-5.1) mEq/L Chloride 103 (98-107) mEq/L Carbon Dioxide 25 (23-29) mEq/L BUN 33 H (8-23) mg/dL Creatinine 3.17 H (0.60-1.20) mg/dL Glucose 132 H (70-105) mg/dL Calcium 9.0 (8.6-10.3) mg/dL Adrenal panel 03/27/18 Range/Units 04:14 Sodium 138 (136-145) mEq/L Potassium 3.4 L D (3.5-5.1) mEq/L Chloride 103 (98-107) mEq/L Carbon Dioxide 25 (23-29) mEq/L BUN 33 H (8-23) mg/dL Creatinine 3.17 H (0.60-1.20) mg/dL Glucose 132 H (70-105) mg/dL Calcium 9.0 (8.6-10.3) mg/dL Consult Discharge Plan - Plan Referrals: Bartolo Washburn MD [Primary Care Provider] -
[2018-03-27] MEDS: cefTRIAXone 1,000 MG in 0.9 % Sodium Chloride Mini Bag 100 ML IVPB SCH (10:26)
[2018-03-27] MEDS: Furosemide 20 MG TABLET PO SCH (10:27)
[2018-03-27] MEDS: Aspirin 81 MG TAB.CHEW PO SCH (10:27)
[2018-03-27] MEDS: *HR* Promethazine 25 MG/ML VIAL IVP PRN (10:27)
[2018-03-27] MEDS: Folic Acid 1 MG TABLET PO SCH (10:27)
[2018-03-27] MEDS: Metoprolol XL (24 HR) Succ 25 MG TAB.ER.24H PO SCH (10:27)
[2018-03-27] MEDS: OXYCODONE Oral CONC 10 MG/0.5 ML ORAL.SYG PO PRN ×2 (10:28→15:17)
[2018-03-27] MEDS: Renal Vitamin 1 MG CAPSULE PO SCH (10:28)
[2018-03-27] MEDS: Insulin LISPRO 300 UNITS/3 ML VIAL SQ SCH ×4 (10:35→20:24)
[2018-03-27] MEDS: Insulin DETEMIR 100 UNIT/ML X5UNITS SQ SCH ×2 (10:39→20:53)
[2018-03-28] MEDS: Ondansetron 4 MG/2 ML VIAL IVP SCH ×3 (00:43→11:38)
[2018-03-28] MEDS: OXYCODONE Oral CONC 10 MG/0.5 ML ORAL.SYG PO PRN ×4 (00:49→19:00)
[2018-03-28 06:11] LABS: Basophils % 0.4 %; Eosinophils # 0.2 K/mcL (0.0-0.6); Eosinophils % 2.4 %; Hematocrit 34.4 % (35.3-44.9); Immature Granulocytes % 0.1 % (0-4); Lymphocytes # 1.3 K/mcL (0.6-4.6); Lymphocytes % 16.4 %; Mean Corpuscular Hemoglobin 30.1 pg (28.0-33.3); Mean Corpuscular Volume 94.2 fL (83.0-100.0); Monocytes # 1.1 K/mcL (0.0-1.3); Monocytes % 13.5 %; Neutrophils # 5.5 K/mcL (1.6-8.9); Platelet Count 152 K/mcL (140-400); Red Blood Count 3.65 M/mcL (3.82-4.97); Red Cell Distribution Width 14.1 % (11.5-14.5); Segmented Neutrophils % 67.2 %
[2018-03-28 07:00] LABS: Calcium 8.5 mg/dL (8.6-10.3); Potassium 3.5 mEq/L (3.5-5.1)
--- NOTE | 2018-03-28 07:38 | Urology Progress Note ---
Date of Encounter: 03/28/18 Time of Encounter: 07:36 - Assessment and Plan (1) Hydronephrosis Current Visit: Yes Status: Acute Assessment and plan: keep cath in place for 5-7 days. will remove at that time and reevaluate for return of flank pain. if flank pain reoccurs will need to consider intermittent cath or indwelling cath. pt is concerned about discomfort from cath. OK for discharge per standpoint. Qualifiers: Hydronephrosis type: unspecified Qualified Code(s): N13.30 - Unspecified hydronephrosis Progress Note Narrative: pt reports near complete resolution of flank pain with porter cath placement. Objective Initial Vital Signs Temp Pulse Resp BP Pulse Ox 98.2 F 74 20 172/92 96 03/26/18 03:47 03/26/18 03:47 03/26/18 03:47 03/26/18 03:47 03/26/18 03:47 - General physical appearance Present: no distress - Labs 03/28/18 05:28 03/28/18 05:28 Diabetes panel 03/28/18 Range/Units 05:28 Sodium 137 (136-145) mEq/L Potassium 3.5 (3.5-5.1) mEq/L Chloride 99 (98-107) mEq/L Carbon Dioxide 31 H (23-29) mEq/L BUN 27 H (8-23) mg/dL Creatinine 3.13 H (0.60-1.20) mg/dL Glucose 63 L (70-105) mg/dL Calcium 8.5 L (8.6-10.3) mg/dL Calcium panel 03/28/18 Range/Units 05:28 Calcium 8.5 L (8.6-10.3) mg/dL Pituitary panel 03/28/18 Range/Units 05:28 Sodium 137 (136-145) mEq/L Potassium 3.5 (3.5-5.1) mEq/L Chloride 99 (98-107) mEq/L Carbon Dioxide 31 H (23-29) mEq/L BUN 27 H (8-23) mg/dL Creatinine 3.13 H (0.60-1.20) mg/dL Glucose 63 L (70-105) mg/dL Calcium 8.5 L (8.6-10.3) mg/dL Adrenal panel 03/28/18 Range/Units 05:28 Sodium 137 (136-145) mEq/L Potassium 3.5 (3.5-5.1) mEq/L Chloride 99 (98-107) mEq/L Carbon Dioxide 31 H (23-29) mEq/L BUN 27 H (8-23) mg/dL Creatinine 3.13 H (0.60-1.20) mg/dL Glucose 63 L (70-105) mg/dL Calcium 8.5 L (8.6-10.3) mg/dL Consult Discharge Plan - Plan Referrals: Bartolo Washburn MD [Primary Care Provider] -
[2018-03-28 08:31] LABS: Estimated Average Glucose 220 mg/dl; Hemoglobin A1C 9.3 %
[2018-03-28] MEDS: Insulin LISPRO 300 UNITS/3 ML VIAL SQ SCH ×4 (09:16→21:46)
[2018-03-28] MEDS: Aspirin 81 MG TAB.CHEW PO SCH (09:18)
[2018-03-28] MEDS: Metoprolol XL (24 HR) Succ 25 MG TAB.ER.24H PO SCH (09:18)
[2018-03-28] MEDS: Furosemide 20 MG TABLET PO SCH (09:19)
[2018-03-28] MEDS: Folic Acid 1 MG TABLET PO SCH (09:19)
[2018-03-28] MEDS: Insulin DETEMIR 100 UNIT/ML X5UNITS SQ SCH ×2 (09:19→21:50)
[2018-03-28] MEDS: cefTRIAXone 1,000 MG in 0.9 % Sodium Chloride Mini Bag 100 ML IVPB SCH ×2 (09:19→11:39)
[2018-03-28] MEDS: Renal Vitamin 1 MG CAPSULE PO SCH (09:19)
--- NOTE | 2018-03-28 09:37 | Internal Med Progress Note ---
<RumaRutSebastian Juancarlos - Last Filed: 03/28/18 13:18> Date of Encounter: 03/28/18 Time of Encounter: 09:35 - Assessment and plan (1) Hydronephrosis Current Visit: Yes Status: Acute Assessment and plan: CT abd/pelvis revealed progressive right sided hydroureteronephrosis with sten in place and urinary bladder wall thickening. Urology note reviewed. Stent appeared to be in appropriate position, though rare possibility of stent malfunction. Most likely secondary to decreased peristalsis from infection. Continue with cath for next 5-7 days, follow up outpatient for removal and trial. After placing porter cath, patient has had improvement of symptoms. -Pain management -Anti nausea medications. -Continue monitoring labs. -Urine culture received, pending results. -Continue with Rocephin d3. Qualifiers: Hydronephrosis type: unspecified Qualified Code(s): N13.30 - Unspecified hydronephrosis (2) UTI (urinary tract infection) Current Visit: Yes Status: Acute Assessment and plan: UTI with right hydroureter on CT abd/pelvis. No pyelonephritis noted on imaging. -Urine culture received, pending results. -Continue with Rocephin d3. -Urology on board Qualifiers: Urinary tract infection type: site unspecified Hematuria presence: with hematuria Qualified Code(s): N39.0 - Urinary tract infection, site not specified (3) ESRD needing dialysis Current Visit: Yes Status: Chronic Assessment and plan: Cr 3.173 this morning, Known history of CKD dialysis dependent Right upper extremity AV fistula -Nephrology on board, Dialysis MWF -Continue monitoring labs. -Urology on board for hydronephrosis and ureter and complication of UTI (4) Nausea and vomiting Current Visit: Yes Status: Acute Assessment and plan: No additional nausea or vomiting overnight after placement of cath and mild improvement of symptoms. -Zofran and phenergan ordered. Qualifiers: Vomiting type: unspecified Vomiting Intractability: unspecified Qualified Code(s): R11.2 - Nausea with vomiting, unspecified (5) Hypokalemia Current Visit: Yes Status: Resolved Assessment and plan: Resolved. Potassium 3.5 this morning, 2.4 on arrival. Continue monitoring labs. Dialysis MWF. (6) Diabetes mellitus Current Visit: Yes Status: Chronic Assessment and plan: Known history of insulin dependent diabetes. Glucose 63 this morning. Continue with insulin sliding scale and basal insulin. ADA Cardiac Renal diet. Qualifiers: Diabetes mellitus type: type 2 Diabetes mellitus jail insulin use: with jail use Diabetes mellitus complication status: with kidney complications Diabetes mellitus complication detail: with chronic kidney disease Chronic kidney disease stage: on chronic dialysis Qualified Code(s) : E11.22 - Type 2 diabetes mellitus with diabetic chronic kidney disease; N18.6 - End stage renal disease; Z79.4 - terminal operator (current) use of insulin; Z99.2 - Dependence on renal dialysis (7) Lung cancer Current Visit: Yes Status: Acute Assessment and plan: History of recently found right lung cancer, unspecified Patient following with [facility]. Appt scheduled for TuesdayApril 05. Qualifiers: Laterality: right Lung location: unspecified part of lung Qualified Code( s): C34.91 - Malignant neoplasm of unspecified part of right bronchus or lung (8) CAD (coronary artery disease) of artery bypass graft Current Visit: Yes Status: Chronic Assessment and plan: History of CABG Continue home medications for chronic disease management. Qualifiers: [place] vs. transplanted heart: [place] heart Associated angina: without angina Qualified Code(s): I25.810 - Atherosclerosis of coronary artery bypass graft(s) without angina pectoris (9) Pulmonary edema Current Visit: Yes Status: Acute Assessment and plan: CXR revealed pulmonary edema and R basilar pleuroparenchymal disease. No current Pulmonary complaints. Denies chest pain, shortness of breath, cough , increased sputum, or hemoptysis. History of UT in the past. BNP 1930 Last Echo 03/01/18: EF 60%, mild LV diastolic dysfunction, normal RV, no eidence of pulm htn, no significant valvular dysfunction. Also noted on 01/2018 CT scan. May be related to malignancy>dialysis. Continue with dialysis as scheduled MWF. Nephro on board. Qualifiers: Chronicity: acute Qualified Code(s): J81.0 - Acute pulmonary edema - Time Spent With Patient Total time spent is greater than 50% in coordination of care (as documented) at patient's floor/unit and/or counseling patient: - Subjective Interval history: Ms. Dan reports doing better this morning than yesterday after they placed the cath. Patient reports R flank pain went from 10 to now 8/10, mainly worse when moving around. Denies any additional vomiting and nausea. Patient denies fevers, sweats, headaches, changes in vision or hearing, chest pain, shortness of breath, cough, changes in bowels or bladder, weakness, or loss of sensation. - Constitutional Vitals: Temp Pulse Resp BP Pulse Ox 98 F 71 18 152/65 97 03/28/18 07:01 03/28/18 07:01 03/28/18 07:01 03/28/18 07:01 03/28/18 07:01 General appearance: Present: A&O X 3, pleasant, no acute distress, answers questions appropriately - Head Head exam: Present: atraumatic, normal inspection, normocephalic - Eye Eye exam: Present: EOMI, normal appearance - ENT ENT exam: Present: mucous membranes moist, normal exam - Neck Neck exam general surgery: Present: full ROM, normal inspection, supple, trachea midline. Absent: lymphadenopathy - Respiratory Respiratory exam: Present: CTAB. Absent: rales, rhonchi, wheezes Additional comments: decreased lung sounds right lower lobe. - Cardiovascular Cardiovascular exam: Present: RRR, +S1, +S2 - GI/Abdominal GI/Abdominal exam: Present: normal bowel sounds, soft. Absent: distended, tenderness - Extremities Exam Extremities exam: Present: full ROM, normal inspection, warm, radial pulses palpable and symmetrical. Absent: pedal edema Additional comments: Right upper extremity AV fistula with good bruit. - Neurological Exam Neurological exam: Present: no focal deficits. Absent: facial droop, speech deficit - Skin Skin exam: Present: dry, intact, normal color, warm. Absent: rash Internal Medicine: Result - Labs CBC & Chem 7: 03/28/18 05:28 03/28/18 05:28 Labs: Short CBC 03/28/18 Range/Units 05:28 WBC 8.2 (4.3-11.1) K/mcL Hgb 11.0 L D (11.5-15.4) g/dL Hct 34.4 L (35.3-44.9) % Plt Count 152 (140-400) K/mcL Neutrophils # 5.5 (1.6-8.9) K/mcL BMP 03/28/18 05:28 Sodium 137 Potassium 3.5 Chloride 99 Carbon Dioxide 31 H BUN 27 H Creatinine 3.13 H Glucose 63 L Calcium 8.5 L Consult Discharge Plan - Plan Referrals: Bartolo Washburn MD [Primary Care Provider] - <Neal Barrett - Last Filed: 03/28/18 19:30> Date of Encounter: 03/28/18 - Assessment and plan (1) ESRD needing dialysis Current Visit: Yes Status: Chronic (2) Diabetes mellitus Current Visit: Yes Status: Chronic Qualifiers: Diabetes mellitus type: type 2 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 Diabetes mellitus complication status: with kidney complications Diabetes mellitus complication detail: with chronic kidney disease Chronic kidney disease stage: on chronic dialysis Qualified Code(s) : E11.22 - Type 2 diabetes mellitus with diabetic chronic kidney disease; N18.6 - End stage renal disease; Z79.4 - correction (current) use of insulin; Z99.2 - Dependence on renal dialysis (3) Hypokalemia Current Visit: Yes Status: Resolved (4) Nausea and vomiting Current Visit: Yes Status: Acute Qualifiers: Vomiting type: unspecified Vomiting Intractability: unspecified Qualified Code(s): R11.2 - Nausea with vomiting, unspecified (5) UTI (urinary tract infection) Current Visit: Yes Status: Acute Qualifiers: Urinary tract infection type: acute cystitis Hematuria presence: with hematuria Qualified Code(s): N30.01 - Acute cystitis with hematuria (6) CAD (coronary artery disease) of artery bypass graft Current Visit: Yes Status: Chronic Qualifiers: [place] vs. transplanted heart: [place] heart Associated angina: without angina Qualified Code(s): I25.810 - Atherosclerosis of coronary artery bypass graft(s) without angina pectoris (7) Hydronephrosis Current Visit: Yes Status: Acute Qualifiers: Hydronephrosis type: unspecified Qualified Code(s): N13.30 - Unspecified hydronephrosis (8) Lung cancer Current Visit: Yes Status: Acute Qualifiers: Laterality: right Lung location: unspecified part of lung Qualified Code( s): C34.91 - Malignant neoplasm of unspecified part of right bronchus or lung (9) Pulmonary edema Current Visit: Yes Status: Acute Qualifiers: Chronicity: acute Qualified Code(s): J81.0 - Acute pulmonary edema - Time Spent With Patient Total time spent is greater than 50% in coordination of care (as documented) at patient's floor/unit and/or counseling patient: - Constitutional Vitals: Temp Pulse Resp BP Pulse Ox 98.9 F 80 17 166/82 91 03/28/18 18:50 03/28/18 18:50 03/28/18 18:50 03/28/18 18:50 03/28/18 18:50 Internal Medicine: Result - Labs CBC & Chem 7: 03/28/18 05:28 03/28/18 05:28 Labs: Short CBC 03/28/18 Range/Units 05:28 WBC 8.2 (4.3-11.1) K/mcL Hgb 11.0 L D (11.5-15.4) g/dL Hct 34.4 L (35.3-44.9) % Plt Count 152 (140-400) K/mcL Neutrophils # 5.5 (1.6-8.9) K/mcL BMP 03/28/18 05:28 Sodium 137 Potassium 3.5 Chloride 99 Carbon Dioxide 31 H BUN 27 H Creatinine 3.13 H Glucose 63 L Calcium 8.5 L - Attending Attestation I examined this patient and my medical decision-making was reviewed with the Resident Physician on 03/28/18. I agree with the documented findings, disposition and treatment plan as described except to the extent set forth below. Ms Dan is currently admitted for hydronephrosis and UTI. She remains moderate to high risk due to potential for worsening clinical status. Ms aDn is resting now. No fever or chills. Still having pain. No GI issues. Exam alert Comfortable at this time Mucus membranes moist Heart reg No wheeze I/P 1. UTI 2. Hydronephrosis. Further diagnoses and plan as above.
[2018-03-28] MEDS: *HR* OxyCODONE/APAP 5/325 TABLET PO PRN ×2 (11:37→17:43)
--- NOTE | 2018-03-28 12:00 | Nephrology Progress Note ---
Date of Encounter: 03/28/18 Time of Encounter: 11:59 - Assessment and Plan (1) ESRD needing dialysis Current Visit: Yes Status: Chronic HD MWF. Renal vitamins. Renal dose medications. Renal diet. Additional dialysis and ultrafiltration as needed. No need for dialysis today.. (2) Hydronephrosis due to obstruction of ureter Current Visit: Yes Status: Acute Per urology. (3) Hypokalemia Current Visit: Yes Status: Resolved Replace as needed. (4) UTI (urinary tract infection) Current Visit: Yes Status: Acute Antibiotics . Qualifiers: Urinary tract infection type: site unspecified Hematuria presence: with hematuria Qualified Code(s): N39.0 - Urinary tract infection, site not specified; R31.9 - Hematuria, unspecified Subjective Principal diagnosis: ESRD Interval history: Patient was seen and evaluated. She still has her complaint of flank pain. Otherwise no new symptoms. Objective - Vital Signs Vital signs: Vital Signs Temp Pulse Resp BP Pulse Ox 03/28/18 11:00 98.6 F 73 17 156/69 99 03/28/18 09:40 98 03/28/18 07:01 98 F 71 18 152/65 97 03/28/18 04:53 98.7 F 69 16 142/68 98 03/27/18 20:00 97.6 F 70 16 164/74 99 03/27/18 16:04 99.1 F 71 16 160/70 98 Intake and Output 03/27/18 03/28/18 03/28/18 23:59 07:59 15:59 Intake Total 120 / 120 0 / 0 240 / 240 Output Total 200 / 200 100 / 100 50 / 50 Balance -80 / -80 -100 / -100 190 / 190 Intake: Oral 120 / 120 0 / 0 240 / 240 Output: Urine 100 / 100 Catheter 200 / 200 0 / 0 50 / 50 Other: Meal Dinner Breakfast Percent of Meal Consumed 50% 50% Weight 77.4 kg Blood Glucose* 164 59 142 Patient Weight 03/28/18 23:59 Weight 77.4 kg - General Appearance General appearance: Present: well-developed, well-nourished EENT: Present: ATNC Respiratory: Present: course breath sounds Cardiology: Present: no edema, regular rate Integumentary: Present: warm and dry Neurologic: Present: alert and oriented x3 Psychiatric: Present: mood/affect appropriate - Lab 03/28/18 05:28 03/28/18 05:28 Most recent lab results Calcium 8.5 mg/dL (8.6-10.3) L 03/28/18 05:28 Magnesium 1.9 mg/dL (1.6-2.6) 03/27/18 04:14 Consult Discharge Plan - Plan Referrals: Bartolo Washburn MD [Primary Care Provider] -
[2018-03-28] MEDS ORDERED: Ondansetron 4 MG/2 ML VIAL IVP PRN (15:46)
[2018-03-28] MEDS: Sucralfate 1 GM TABLET PO SCH (17:43)
[2018-03-28] MEDS: *HR* Promethazine 25 MG/ML VIAL IVP PRN (17:44)
[2018-03-28] MEDS ORDERED: NON-FORMULARY MEDICATION 1 EACH EACH (Insulin Detemir 10 UNIT) SQ SCH (21:00)
[2018-03-28] MEDS: tiZANidine 4 MG TABLET PO SCH (21:35)
[2018-03-29] MEDS ORDERED: Acetaminophen 325 MG TABLET PO PRN (00:59)
[2018-03-29] MEDS ORDERED: 0.9 % Sodium Chloride 250 ML IVC PRN (05:14)
[2018-03-29] MEDS ORDERED: 0.9 % Sodium Chloride 1,000 ML PRIME SCH (05:15)
[2018-03-29] MEDS: Sucralfate 1 GM TABLET PO SCH ×2 (05:50→17:00)
--- NOTE | 2018-03-29 06:45 | Electrocardiograph Report ---
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
[2018-03-29 07:08] LABS: Potassium 3.7 mEq/L (3.5-5.1)
[2018-03-29] MEDS: OXYCODONE Oral CONC 10 MG/0.5 ML ORAL.SYG PO PRN (10:14)
[2018-03-29] MEDS: Renal Vitamin 1 MG CAPSULE PO SCH (10:16)
[2018-03-29] MEDS: Famotidine 20 MG TABLET PO SCH (10:17)
[2018-03-29] MEDS: Aspirin 81 MG TAB.CHEW PO SCH (10:17)
[2018-03-29] MEDS: Folic Acid 1 MG TABLET PO SCH (10:17)
[2018-03-29] MEDS: tiZANidine 4 MG TABLET PO SCH ×2 (10:17→22:31)
[2018-03-29] MEDS: Metoprolol XL (24 HR) Succ 25 MG TAB.ER.24H PO SCH (10:18)
[2018-03-29] MEDS: Furosemide 20 MG TABLET PO SCH (10:18)
[2018-03-29] MEDS: Insulin LISPRO 300 UNITS/3 ML VIAL SQ SCH ×4 (10:22→22:32)
--- NOTE | 2018-03-29 10:41 | Internal Med Progress Note ---
<Joon Dias - Last Filed: 03/29/18 10:37> Date of Encounter: 03/29/18 Time of Encounter: 10:38 - Assessment and plan (1) UTI (urinary tract infection) Current Visit: Yes Status: Acute Assessment and plan: UTI with right hydroureter on CT abd/pelvis Febrile overnight -Urine culture gram-positive cocci Transitioned to vancomycin Qualifiers: Urinary tract infection type: acute cystitis Hematuria presence: with hematuria Qualified Code(s): N30.01 - Acute cystitis with hematuria (2) Hydronephrosis Current Visit: Yes Status: Acute Assessment and plan: CT abd/pelvis revealed progressive right sided hydroureteronephrosis with sten in place and urinary bladder wall thickening. Urology note reviewed. Stent appeared to be in appropriate position, though rare possibility of stent malfunction. Most likely secondary to decreased peristalsis from infection. Continue with cath for next 5-7 days, follow up outpatient for removal and trial. Qualifiers: Hydronephrosis type: unspecified Qualified Code(s): N13.30 - Unspecified hydronephrosis (3) ESRD needing dialysis Current Visit: Yes Status: Chronic Assessment and plan: Known history of CKD dialysis dependent Right upper extremity AV fistula Underwent dialysis this morning -Nephrology on board, Dialysis MWF -Continue monitoring labs. -Urology on board for hydronephrosis and ureter and complication of UTI (4) Diabetes mellitus Current Visit: Yes Status: Chronic Assessment and plan: Known history of insulin dependent diabetes. Continue with insulin sliding scale and basal insulin. ADA Cardiac Renal diet. 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 (6) Nausea and vomiting Current Visit: Yes Status: Resolved Assessment and plan: No additional nausea or vomiting overnight after placement of cath and mild improvement of symptoms. -Zofran as needed. Qualifiers: Vomiting type: unspecified Vomiting Intractability: unspecified Qualified Code(s): R11.2 - Nausea with vomiting, unspecified (7) CAD (coronary artery disease) of artery bypass graft Current Visit: Yes Status: Chronic Assessment and plan: History of CABG Continue home medications for chronic disease management. Qualifiers: [place] vs. transplanted heart: [place] heart Associated angina: without angina Qualified Code(s): I25.810 - Atherosclerosis of coronary artery bypass graft(s) without angina pectoris (8) Lung cancer Current Visit: Yes Status: Chronic Assessment and plan: History of recently found right lung cancer, unspecified Patient following with [facility]. Appt scheduled for TuesdayApril 05. Qualifiers: Laterality: right Lung location: unspecified part of lung Qualified Code( s): C34.91 - Malignant neoplasm of unspecified part of right bronchus or lung (9) Pulmonary edema Current Visit: Yes Status: Chronic Assessment and plan: CXR revealed pulmonary edema BNP 1930 Last Echo 03/01/18: EF 60%, mild LV diastolic dysfunction, normal RV, no eidence of pulm htn, no significant valvular dysfunction. Also noted on 01/2018 CT scan. May be related to malignancy>dialysis. Continue with dialysis as scheduled MWF. Nephro on board. Qualifiers: Chronicity: acute Qualified Code(s): J81.0 - Acute pulmonary edema - Time Spent With Patient Total time spent is greater than 50% in coordination of care (as documented) at patient's floor/unit and/or counseling patient: - Subjective Interval history: No acute events overnight. Undergoing dialysis this morning. Patient continues to complain of right flank pain which is unchanged and has not worsened. - Constitutional Vitals: Temp Pulse Resp BP Pulse Ox 99.7 F H 79 17 117/65 100 03/29/18 10:11 03/29/18 10:11 03/29/18 10:11 03/29/18 10:11 03/29/18 10:11 General appearance: Present: A&O X 3, pleasant, no acute distress, answers questions appropriately - Other Additional findings: General: Pleasant without distress Heart: Regular rate and rhythm with no murmur Lungs: Clear to auscultation bilaterally Abdomen: Soft nontender, nondistended positive bowel sounds Skin: warm and dry, absent rash Extremities: Absent pedal edema, Neuro: alert and oriented x3. Vascular: Pedal and radial pulses 2 out of 4. right upper extremity AV fistula with good bruit. Internal Medicine: Result - Labs CBC & Chem 7: 03/28/18 05:28 03/29/18 04:00 Labs: BMP 03/29/18 04:00 Sodium 132 L Potassium 3.7 Chloride 94 L Carbon Dioxide 30 H BUN 34 H Creatinine 3.24 H Glucose 231 H Calcium 8.0 L Consult Discharge Plan - Plan Instructions: Chest Pain (DC), Urinary Tract Infection in Women (DC), Hemodialysis (DC), Hemodialysis (GEN), Dialysis Diet (DC), Khanna Catheter Placement and Care (DC), Diabetes Mellitus Type 2 in Adults (DC), Using Oxygen at Home (DC), Chronic Urinary Retention in Women (DC), Ureteral Stent Placement (DC), End-Stage Kidney Disease (DC) Referrals: Bartolo Washburn MD [Primary Care Provider] - (appt requested ) <eNal Barrett - Last Filed: 03/29/18 18:21> Date of Encounter: 03/29/18 - Assessment and plan (1) UTI (urinary tract infection) Current Visit: Yes Status: Acute Qualifiers: Urinary tract infection type: acute cystitis Hematuria presence: with hematuria Qualified Code(s): N30.01 - Acute cystitis with hematuria (2) Hydronephrosis Current Visit: Yes Status: Acute Qualifiers: Hydronephrosis type: unspecified Qualified Code(s): N13.30 - Unspecified hydronephrosis (3) ESRD needing dialysis Current Visit: Yes Status: Chronic (4) Diabetes mellitus Current Visit: Yes Status: Chronic Qualifiers: Diabetes mellitus type: type 2 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: with 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 and skins colorer use Diabetes mellitus complication status: with kidney complications Diabetes mellitus complication detail: with chronic kidney disease Chronic kidney disease stage: on chronic dialysis Qualified Code(s) : E11.22 - Type 2 diabetes mellitus with diabetic chronic kidney disease; N18.6 - End stage renal disease; 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 transplanted heart: [place] heart Associated angina: without angina Qualified Code(s): I25.810 - Atherosclerosis of coronary artery bypass graft(s) without angina pectoris (8) Lung cancer Current Visit: Yes Status: Chronic Qualifiers: Laterality: right Lung location: unspecified part of lung Qualified Code( s): C34.91 - Malignant neoplasm of unspecified part of right bronchus or lung (9) Pulmonary edema Current Visit: Yes Status: Chronic Qualifiers: Chronicity: acute Qualified Code(s): J81.0 - Acute pulmonary edema - Time Spent With Patient Total time spent is greater than 50% in coordination of care (as documented) at patient's floor/unit and/or counseling patient: - Constitutional Vitals: Temp Pulse Resp BP Pulse Ox 98 F 65 18 122/62 100 03/29/18 16:05 03/29/18 16:05 03/29/18 16:05 03/29/18 16:05 03/29/18 16:05 Internal Medicine: Result - Labs CBC & Chem 7: 03/28/18 05:28 03/29/18 04:00 Labs: BMP 03/29/18 04:00 Sodium 132 L Potassium 3.7 Chloride 94 L Carbon Dioxide 30 H BUN 34 H Creatinine 3.24 H Glucose 231 H Calcium 8.0 L - Attending Attestation I examined this patient and my medical decision-making was reviewed with the Resident Physician on 03/29/18. I agree with the documented findings, disposition and treatment plan as described except to the extent set forth below. Ms Dan is currently admitted for acute UTI. She was febrile last night. She remains moderate to high risk due to potential for worsening clinical status. Ms Dan is resting comfortably. No fever now but was elevated last night. No CP or SOB. Pain about the same. Exam alert. Comfortable at this time Mucus membranes dry Heart reg No wheeze abd soft I/P 1. UTI 2. Fever - abx changed Further diagnoses and plan as above.
--- NOTE | 2018-03-29 11:05 | Nephrology Progress Note ---
Date of Encounter: 03/29/18 Time of Encounter: 11:02 - Assessment and Plan (1) ESRD needing dialysis Current Visit: Yes Status: Chronic HD MWF. Renal vitamins. Renal dose medications. Renal diet. Additional dialysis and ultrafiltration as needed. Patient was seen on dialysis today.. (2) Hydronephrosis due to obstruction of ureter Current Visit: Yes Status: Acute Per urology. (3) Hypokalemia Current Visit: Yes Status: Resolved Replace as needed. (4) UTI (urinary tract infection) Current Visit: Yes Status: Acute Antibiotics per primary team. . Qualifiers: Urinary tract infection type: acute cystitis Hematuria presence: with hematuria Qualified Code(s): N30.01 - Acute cystitis with hematuria Subjective Principal diagnosis: ESRD Interval history: Patient was seen and evaluated on dialysis. Otherwise no new symptoms. Objective - Vital Signs Vital signs: Vital Signs Temp Pulse Resp BP Pulse Ox 03/29/18 10:11 99.7 F H 79 17 117/65 100 03/29/18 09:43 97.7 F 18 134/72 03/29/18 09:30 114/46 03/29/18 09:15 135/58 03/29/18 09:00 134/60 03/29/18 08:45 121/62 03/29/18 08:30 112/62 03/29/18 08:15 111/50 03/29/18 08:00 107/54 03/29/18 07:45 109/59 03/29/18 07:30 150/71 03/29/18 07:15 129/64 03/29/18 07:00 163/66 03/29/18 06:45 150/66 03/29/18 06:30 122/70 03/29/18 06:15 139/70 03/29/18 06:00 98.3 F 20 165/56 03/29/18 05:31 99.3 F 67 17 116/62 100 03/29/18 02:00 98.8 F 03/29/18 00:00 101.0 F H 70 17 117/43 100 03/28/18 21:55 100 03/28/18 18:50 98.9 F 80 17 166/82 91 03/28/18 16:29 98.8 F 77 16 145/78 91 Intake and Output 03/28/18 03/29/1818 23:59 07:59 15:59 Intake Total 200 / 200 720 / 720 Output Total 200 / 200 100 / 100 3650 / 3650 Balance 0 / 0 620 / 620 -3650 / -3650 Intake: Oral 200 / 200 120 / 120 Intake, Rinseback and Flushes 600 / 600 Output: Urine 0 / 0 Total Dialysis (HD) Output 3600 / 3600 Catheter 200 / 200 100 / 100 50 / 50 Other: Meal Dinner Percent of Meal Consumed 70% Weight 78.8 kg Blood Glucose* 265 241 164 Hemodialysis Net Fluid Removed 1809 3000 (mL) Patient Weight 03/29/18 23:59 Weight 78.8 kg - General Appearance General appearance: Present: well-developed, well-nourished EENT: Present: ATNC Neck: Present: supple Cardiology: Present: regular rate Neurologic: Present: alert and oriented x3 Psychiatric: Present: mood/affect appropriate - Lab 03/28/18 05:28 03/29/18 04:00 Most recent lab results Calcium 8.0 mg/dL (8.6-10.3) L 03/29/18 04:00 Magnesium 1.9 mg/dL (1.6-2.6) 03/27/18 04:14 Consult Discharge Plan - Plan Instructions: Chest Pain (DC), Urinary Tract Infection in Women (DC), Hemodialysis (DC), Hemodialysis (GEN), Dialysis Diet (DC), Khanna Catheter Placement and Care (DC), Diabetes Mellitus Type 2 in Adults (DC), Using Oxygen at Home (DC), Chronic Urinary Retention in Women (DC), Ureteral Stent Placement (DC), End-Stage Kidney Disease (DC) Referrals: Bartolo Washburn MD [Primary Care Provider] - (appt requested )
[2018-03-29] MEDS ORDERED: Aminoglycoside Consult 1 EACH MC ONE (15:42)
[2018-03-29] MEDS: *HR* OxyCODONE Immed Rel 5 MG TABLET PO PRN ×2 (17:21→22:31)
[2018-03-29] MEDS: Insulin DETEMIR 100 UNIT/ML X5UNITS SQ SCH (22:44)
[2018-03-30 04:55] LABS: Basophils % 0.5 %; Eosinophils # 0.3 K/mcL (0.0-0.6); Eosinophils % 3.1 %; Hematocrit 32.1 % (35.3-44.9); Hemoglobin 10.2 g/dL (11.5-15.4); Immature Granulocytes % 0.3 % (0-4); Lymphocytes # 0.9 K/mcL (0.6-4.6); Lymphocytes % 10.7 %; Mean Corpuscular HGB Conc 31.8 g/dL (31.6-35.5); Mean Corpuscular Hemoglobin 29.9 pg (28.0-33.3); Mean Corpuscular Volume 94.1 fL (83.0-100.0); Mean Platelet Volume 10.9 fL (9.4-12.4); Monocytes % 12.7 %; Neutrophils # 5.8 K/mcL (1.6-8.9); Platelet Count 143 K/mcL (140-400); Red Blood Count 3.41 M/mcL (3.82-4.97); Red Cell Distribution Width 13.7 % (11.5-14.5); Segmented Neutrophils % 72.7 %
[2018-03-30 05:09] LABS: Calcium 8.3 mg/dL (8.6-10.3); Potassium 4.2 mEq/L (3.5-5.1)
[2018-03-30 07:42] VITALS: BP 156/62
[2018-03-30] MEDS: Furosemide 20 MG TABLET PO SCH (07:52)
[2018-03-30] MEDS: Renal Vitamin 1 MG CAPSULE PO SCH (07:52)
[2018-03-30] MEDS: Folic Acid 1 MG TABLET PO SCH (07:52)
[2018-03-30] MEDS: Aspirin 81 MG TAB.CHEW PO SCH (07:53)
[2018-03-30] MEDS: Famotidine 20 MG TABLET PO SCH (07:53)
[2018-03-30] MEDS: tiZANidine 4 MG TABLET PO SCH (07:56)
[2018-03-30] MEDS: Metoprolol XL (24 HR) Succ 25 MG TAB.ER.24H PO SCH (07:57)
[2018-03-30] MEDS: Sucralfate 1 GM TABLET PO SCH (07:57)
[2018-03-30] MEDS: Insulin LISPRO 300 UNITS/3 ML VIAL SQ SCH ×2 (07:58→11:58)
--- NOTE | 2018-03-30 08:40 | Discharge Summary ---
<LuzmariarobinSebastian looneyhi - Last Filed: 03/30/18 10:06> - NOTES TO OUTPATIENT PROVIDER Notes to Outpatient Provider: Ms. Dan was admitted for Right flank pain and on imaging found to have right sided hydroureteronephrosis and bladder wall thickening. Due to her history of having urteral stent, Urology was consulted and recommended to place catheter which then improved her symptoms significantly. She was also given Rocephin for concern for UTI and switched to Ampicillin as urine culture results shows Enterococcus faecalis. Patient to be discharge with antibiotics and with porter cath in place, plan to see Urology as outpatient for removal and trial period. Date of Encounter: 03/30/18 Time of Encounter: 08:39 - Discharge Diagnosis (1) Hydronephrosis Priority: Primary Status: Acute Assessment and Plan: CT abd/pelvis revealed progressive right sided hydroureteronephrosis with sten in place and urinary bladder wall thickening. Urology note reviewed. Stent appeared to be in appropriate position, though rare possibility of stent malfunction. Most likely secondary to decreased peristalsis from infection. Continue with cath for next 5-7 days, follow up outpatient for removal and trial. Qualifiers: Hydronephrosis type: unspecified Qualified Code(s): N13.30 - Unspecified hydronephrosis (2) UTI (urinary tract infection) Priority: Primary Status: Acute Assessment and Plan: UTI with right hydroureter on CT abd/pelvis Urine culture with enterococcus faecalis Continue with ampicillin per sensitivities. Qualifiers: Urinary tract infection type: acute cystitis Hematuria presence: with hematuria Qualified Code(s): N30.01 - Acute cystitis with hematuria (3) ESRD needing dialysis Priority: Secondary Status: Chronic Assessment and Plan: Known history of CKD dialysis dependent Right upper extremity AV fistula Underwent dialysis yesterday -Nephrology on board, Dialysis MWF -Continue monitoring labs. -Urology on board for hydronephrosis and ureter and complication of UTI (4) Diabetes mellitus Priority: Secondary Status: Chronic Assessment and Plan: Known history of insulin dependent diabetes. Continue with insulin sliding scale and basal insulin. ADA Cardiac Renal diet. Qualifiers: Diabetes mellitus type: type 2 Diabetes mellitus intermediate insulin use: with termite helper use Diabetes mellitus complication status: with kidney complications Diabetes mellitus complication detail: with chronic kidney disease Chronic kidney disease stage: on chronic dialysis Qualified Code(s) : E11.22 - Type 2 diabetes mellitus with diabetic chronic kidney disease; N18.6 - End stage renal disease; Z79.4 - group home (current) use of insulin; Z99.2 - Dependence on renal dialysis (5) Hypokalemia Priority: Secondary Status: Resolved Assessment and Plan: Resolved. (6) Nausea and vomiting Priority: Primary Status: Resolved Assessment and Plan: -Zofran as needed. Qualifiers: Vomiting type: unspecified Vomiting Intractability: unspecified Qualified Code(s): R11.2 - Nausea with vomiting, unspecified (7) CAD (coronary artery disease) of artery bypass graft Priority: Secondary Status: Chronic Assessment and Plan: History of CABG Continue home medications for chronic disease management. Qualifiers: [place] vs. transplanted heart: [place] heart Associated angina: without angina Qualified Code(s): I25.810 - Atherosclerosis of coronary artery bypass graft(s) without angina pectoris (8) Lung cancer Priority: Secondary Status: Chronic Assessment and Plan: History of recently found right lung cancer, unspecified Patient following with [facility]. PET scan scheduled as outpatient, missed appointment due to hospitalization. Qualifiers: Laterality: right Lung location: unspecified part of lung Qualified Code( s): C34.91 - Malignant neoplasm of unspecified part of right bronchus or lung (9) Pulmonary edema Priority: Secondary Status: Chronic Assessment and Plan: CXR revealed pulmonary edema BNP 1930 Last Echo 03/01/18: EF 60%, mild LV diastolic dysfunction, normal RV, no eidence of pulm htn, no significant valvular dysfunction. Also noted on 01/2018 CT scan. May be related to malignancy>dialysis. Continue with dialysis as scheduled MWF. Nephro on board. Qualifiers: Chronicity: acute Qualified Code(s): J81.0 - Acute pulmonary edema Hospital course: Ms. Dan is a 67 year old female with history of ESRD on dialysis, CAD, Gerd , history of CABG, and lung cancer who presented to the ED on 03/26/18 with complaint of severe right flank pain. CT revealed progressive right sided hydroureteronephrosis with stent in place. Urology was consulted to evaluate possible exchange of stent, but was advised it is correctly place and to trial decompression of downstream areas with cath. Porter cath was placed and patient' s symptom improved significantly. Urine culture grew Enterococcus faecalis and so patient was switched to ampicillin. potassium was low at 2.4 on arrival, potassium repleeted to 3.5. While hospitalized the patient missed her PET scan appt for evaluation of her lung cancer. On day of disharge the patient is doing well and has no new complaints. Pain 4/ 10 after pain medications. Patient denies fevers, chils, sweats, nausea, vomiting, chest pain, shortness ofbreath, abdominal pain, changes in bowels or bladder, weakness, or loss of sensation. Discharge plan to send home with catheter in place for next 3-5 days till seen in Urology office as outpatient and home to assisted living with home health services. - Time Spent with Patient Total time spent providing and/or coordinating discharge services: - Discharge Medications Prescriptions: Ampicillin Trihydrate 500 mg PO TID #21 capsule OxyCODONE/APAP 5/325 [Percocet 5/325 MG] 1 tab PO TID PRN 3 Days #9 tablet PRN Reason: Pain Home Medications: Folic Acid 1 mg PO DAILY 07/10/15 [History] Levothyroxine [Synthroid] 50 mcg PO QAM 07/10/15 [History] Pantoprazole Sodium [Protonix] 40 mg PO BID 07/10/15 [History] Solifenacin Succinate [Vesicare] 10 mg PO DAILY 07/10/15 [History] Aspirin 81 mg PO DAILY #30 tab.chew 02/18/16 [Rx] Metoprolol XL (24 HR) Succ [Toprol Xl] 12.5 mg PO DAILY #30 tab.er.24h 02/18/16 [Rx] Docusate [Colace] 100 mg PO BID 10/14/16 [History] Albuterol Sulfate [Proair Hfa] 2 puff IH Q4H PRN 03/17/17 [History] Atorvastatin [Lipitor] 40 mg PO HS 03/17/17 [History] Ranitidine HCl [Heartburn Relief] 150 mg PO BID 03/17/17 [History] Clopidogrel [Plavix] 75 mg PO DAILY 05/09/17 [History] Ondansetron ODT [Zofran ODT] 4 mg PO Q8H PRN 05/09/17 [History] Sucralfate [Carafate] 1 gm PO 0730,1630 05/09/17 [History] Lisinopril [Zestril] 5 mg PO DAILY 07/05/17 [History] Diclofenac Sodium 1 appl TP DAILY PRN 03/01/18 [History] Folic Acid/Vit Bcomp,C [Renal-Elizabeth Tablet] 0.8 mg PO DAILY 03/01/18 [History] Furosemide [Lasix] 20 mg PO DAILY 03/01/18 [History] Hydrocortisone 1% CREAM [Cortaid] 1 appl TP DAILY PRN 03/01/18 [History] Tizanidine HCl 2 mg PO BID 03/01/18 [History] Triamcinolone Acet 0.1% CRM [Kenalog] 1 appl TP DAILY PRN 03/01/18 [History] Amitriptyline [Elavil] 25 mg PO HS 03/26/18 [History] Cyclobenzaprine [Flexeril] 10 mg PO QAM 03/26/18 [History] DULoxetine [Cymbalta] 30 mg PO DAILY 03/26/18 [History] Ergocalciferol (VITAMIN D2) [Drisdol] 50,000 unit PO MO 03/26/18 [History] Insulin ASPART [NovoLOG] 0 unit SQ TIDWM 03/26/18 [History] Insulin DETEMIR [Levemir] 10 unit SQ BID 03/26/18 [History] Tamsulosin [Flomax] 0.4 mg PO DAILY 03/26/18 [History] Zolpidem [Ambien] 10 mg PO HS 03/26/18 [History] Ampicillin Trihydrate 500 mg PO TID #21 capsule 03/30/18 [Rx] OxyCODONE/APAP 5/325 [Percocet 5/325 MG] 1 tab PO TID PRN 3 Days #9 tablet 03/30 [Rx] Allergies/Adverse Reactions: 3 Allergy/AdvReac Type Severity Reaction Status Date / Time adhesive tape Allergy Redness of Verified 03/22/18 14:50 Skin latex Allergy Swelling Verified 03/22/18 14:50 of Lip/Tongue/Throat Sulfa (Sulfonamide Allergy Rash Verified 03/22/18 14:50 Antibiotics) Date of admission: 03/27/18 14:56 Primary care physician: Bartolo Washburn MD Consults: 03/29/18 05:15 Consult to Dialysis [CONS] ONCE Discharging clinician: Neal Barrett ([facility]) Anticipated date of discharge: 03/30/18 - Constitutional Vitals: Temp Pulse Resp BP Pulse Ox 99.0 F 67 16 156/62 100 03/30/18 07:37 03/30/18 07:37 03/30/18 07:37 03/30/18 07:37 03/30/18 07:37 General appearance: Present: A&O X 3, pleasant, no acute distress, answers questions appropriately - Head Head exam: Present: atraumatic, normal inspection, normocephalic - Eye Eye exam: Present: EOMI, normal appearance - ENT ENT exam: Present: mucous membranes moist, normal exam - Neck Neck exam general surgery: Present: full ROM, normal inspection, supple - Respiratory Respiratory exam: Present: CTAB. Absent: rales, rhonchi, wheezes - Cardiovascular Cardiovascular exam: Present: RRR, +S1, +S2 - GI/Abdominal GI/Abdominal exam: Present: normal bowel sounds, soft. Absent: distended, tenderness - Additional comments: porter cath in place draining clear yellow urine. - Extremities Exam Extremities exam: Present: full ROM, normal inspection, warm, radial pulses palpable and symmetrical. Absent: pedal edema Additional comments: Right AV fistula with good bruit. - Skin Skin exam: Present: dry, intact, normal color, warm. Absent: rash - Patient Status Disposition: Home Health Service Condition: Fair Functional capacity at discharge: uses cane/walker Overall status at discharge: patient is progressing back to baseline - Discharge Instructions Instructions: Ampicillin (By mouth), Oxycodone/Acetaminophen (By mouth), Chest Pain (DC), Urinary Tract Infection in Women (DC), Hemodialysis (DC), Hemodialysis (GEN), Dialysis Diet (DC), Porter Catheter Placement and Care (DC), Diabetes Mellitus Type 2 in Adults (DC), Using Oxygen at Home (DC), Chronic Urinary Retention in Women (DC), Ureteral Stent Placement (DC), End-Stage Kidney Disease (DC) Follow Up With: Bartolo Washburn MD [Primary Care Provider] - 04/06/18 1:15 pm () Eliud Welch MD [Partnered Physician] - 04/05/18 9:00 am Additional Instructions: the patient needs to call to reschedule the pet scan herself they would not let me do it for her.. the number is - Diet and Activity Activity: ambulate only with your walker, increase activity as tolerated Diet: low fat, low cholesterol, other (renal and cardiac diet) <Neal Barrett - Last Filed: 03/30/18 13:13> Date of Encounter: 03/30/18 - Discharge Diagnosis (1) UTI (urinary tract infection) Status: Resolved Qualifiers: Urinary tract infection type: acute cystitis Hematuria presence: with hematuria Qualified Code(s): N30.01 - Acute cystitis with hematuria (2) ESRD needing dialysis Status: Chronic (3) Diabetes mellitus Status: Chronic Qualifiers: Diabetes mellitus type: type 2 Diabetes mellitus termite helper insulin use: with intermediate use Diabetes mellitus complication status: with kidney complications Diabetes mellitus complication detail: with chronic kidney disease Chronic kidney disease stage: on chronic dialysis Qualified Code(s) : E11.22 - Type 2 diabetes mellitus with diabetic chronic kidney disease; N18.6 - End stage renal disease; Z79.4 - intermediate card tender (current) use of insulin; Z99.2 - Dependence on renal dialysis (4) Hypokalemia Status: Resolved (5) Nausea and vomiting Priority: Secondary Status: Resolved Qualifiers: Vomiting type: unspecified Vomiting Intractability: unspecified Qualified Code(s): R11.2 - Nausea with vomiting, unspecified (6) CAD (coronary artery disease) of artery bypass graft Status: Chronic Qualifiers: [place] vs. transplanted heart: [place] heart Associated angina: without angina Qualified Code(s): I25.810 - Atherosclerosis of coronary artery bypass graft(s) without angina pectoris (7) Hydronephrosis Status: Acute Qualifiers: Hydronephrosis type: unspecified Qualified Code(s): N13.30 - Unspecified hydronephrosis (8) Lung cancer Status: Chronic Qualifiers: Laterality: right Lung location: unspecified part of lung Qualified Code( s): C34.91 - Malignant neoplasm of unspecified part of right bronchus or lung (9) Pulmonary edema Status: Resolved Qualifiers: Chronicity: acute Qualified Code(s): J81.0 - Acute pulmonary edema Hospital course: Ms. Dan is a 67 year old female - Time Spent with Patient Total time spent providing and/or coordinating discharge services: 39min Date of admission: 03/27/18 14:56 Primary care physician: Bartolo Washburn MD Consults: 03/29/18 05:15 Consult to Dialysis [CONS] ONCE - Constitutional Vitals: Temp Pulse Resp BP Pulse Ox 99.0 F 67 16 156/62 100 03/30/18 07:37 03/30/18 07:37 03/30/18 07:37 03/30/18 07:37 03/30/18 07:37 - Attending Attestation I examined this patient and my medical decision-making was reviewed with the Resident Physician on 03/30/18. I agree with the documented findings, disposition and treatment plan as described except to the extent set forth below. Ms Dan has been admitted for acute hydronephrosis and UTI. She has grown enterococcus and is now on PO abx. She feels OK and is currently afebrile. She feels ready for discharge home. Exam Alert. Comfortable Mucus membranes dry Heart reg No wheeze Plan D/C home today.
--- NOTE | 2018-03-30 10:53 | Physician Discharge Referral ---
Home Health/Hosp Referral Info Transfer to: Home Health Attending Provider: pernell Barrett Provider in Charge Post Discharge: PCP - Diagnosis (1) Hydronephrosis Priority: Primary Status: Acute (2) UTI (urinary tract infection) Priority: Primary Status: Acute (3) ESRD needing dialysis Priority: Secondary Status: Chronic (4) Diabetes mellitus Priority: Secondary Status: Chronic (5) Hypokalemia Priority: Secondary Status: Resolved (6) Nausea and vomiting Priority: Secondary Status: Resolved (7) CAD (coronary artery disease) of artery bypass graft Priority: Secondary Status: Chronic (8) Lung cancer Priority: Secondary Status: Chronic (9) Pulmonary edema Priority: Secondary Status: Chronic - Respiratory Orders Smoking Cessation: Smoking cessation has been advised. For more information, call the [employer] Quit Line at [phone]. - Diet/Nutrition Diet/Nutrition Orders: Renal, Cardiac - Activity Activity Orders: Chair - Services Needed Following services are medically necessary services: Nursing, Home Health Aide, Physical Therapy, Occupational Therapy Home Care Orders: Khanna cath in place due to hydroureteronephrosis, plan to remove at outpatient Urology appt within next 3-5 days. Continue with ampicillin antibiotics for UTI. - Transfer Medications Prescriptions: Ampicillin Trihydrate 500 mg PO TID #21 capsule OxyCODONE/APAP 5/325 [Percocet 5/325 MG] 1 tab PO TID PRN 3 Days #9 tablet PRN Reason: Pain Home Medications: Folic Acid 1 mg PO DAILY 07/10/15 [History] Levothyroxine [Synthroid] 50 mcg PO QAM 07/10/15 [History] Pantoprazole Sodium [Protonix] 40 mg PO BID 07/10/15 [History] Solifenacin Succinate [Vesicare] 10 mg PO DAILY 07/10/15 [History] Aspirin 81 mg PO DAILY #30 tab.chew 02/18/16 [Rx] Metoprolol XL (24 HR) Succ [Toprol Xl] 12.5 mg PO DAILY #30 tab.er.24h 02/18/16 [Rx] Docusate [Colace] 100 mg PO BID 10/14/16 [History] Albuterol Sulfate [Proair Hfa] 2 puff IH Q4H PRN 03/17/17 [History] Atorvastatin [Lipitor] 40 mg PO HS 03/17/17 [History] Ranitidine HCl [Heartburn Relief] 150 mg PO BID 03/17/17 [History] Clopidogrel [Plavix] 75 mg PO DAILY 05/09/17 [History] Ondansetron ODT [Zofran ODT] 4 mg PO Q8H PRN 05/09/17 [History] Sucralfate [Carafate] 1 gm PO 0730,1630 05/09/17 [History] Lisinopril [Zestril] 5 mg PO DAILY 07/05/17 [History] Diclofenac Sodium 1 appl TP DAILY PRN 03/01/18 [History] Folic Acid/Vit Bcomp,C [Renal-Elizabeth Tablet] 0.8 mg PO DAILY 03/01/18 [History] Furosemide [Lasix] 20 mg PO DAILY 03/01/18 [History] Hydrocortisone 1% CREAM [Cortaid] 1 appl TP DAILY PRN 03/01/18 [History] Tizanidine HCl 2 mg PO BID 03/01/18 [History] Triamcinolone Acet 0.1% CRM [Kenalog] 1 appl TP DAILY PRN 03/01/18 [History] Amitriptyline [Elavil] 25 mg PO HS 03/26/18 [History] Cyclobenzaprine [Flexeril] 10 mg PO QAM 03/26/18 [History] DULoxetine [Cymbalta] 30 mg PO DAILY 03/26/18 [History] Ergocalciferol (VITAMIN D2) [Drisdol] 50,000 unit PO MO 03/26/18 [History] Insulin ASPART [NovoLOG] 0 unit SQ TIDWM 03/26/18 [History] Insulin DETEMIR [Levemir] 10 unit SQ BID 03/26/18 [History] Tamsulosin [Flomax] 0.4 mg PO DAILY 03/26/18 [History] Zolpidem [Ambien] 10 mg PO HS 03/26/18 [History] Ampicillin Trihydrate 500 mg PO TID #21 capsule 03/30/18 [Rx] OxyCODONE/APAP 5/325 [Percocet 5/325 MG] 1 tab PO TID PRN 3 Days #9 tablet 03/30 [Rx] Allergies/Adverse Reactions: 3 Allergy/AdvReac Type Severity Reaction Status Date / Time adhesive tape Allergy Redness of Verified 03/22/18 14:50 Skin latex Allergy Swelling Verified 03/22/18 14:50 of Lip/Tongue/Throat Sulfa (Sulfonamide Allergy Rash Verified 03/22/18 14:50 Antibiotics) Certification: Further, I certify that my clinical findings support that this patient is homebound (i.e. absences from home require considerable and taxing effort and are for medical reasons or restoration services or infrequently or short duration when for other reasons) because: Homebound Reason: Patient requires assistance of a person or device to safely leave home, Leaving home requires considerable and taxing effort due to condition Attestation: My signature below is to certify that this patient is under my care and that I, or nurse practitioner, or a physician's buyer assistant working with me, has a face-to -face encounter with this patient.
[2018-03-30] MEDS ORDERED: Ampicillin 1,000 MG in 0.9 % Sodium Chloride Mini Bag 100 ML IVPB SCH (12:00)
--- NOTE | 2018-03-30 17:51 | Nephrology Progress Note ---
Date of Encounter: 03/30/18 Time of Encounter: 11:00 - Assessment and Plan (1) ESRD needing dialysis Status: Chronic HD MWF. Renal vitamins. Renal dose medications. Renal diet. Additional dialysis and ultrafiltration as needed. (2) Hydronephrosis due to obstruction of ureter Status: Acute Per urology. Subjective Principal diagnosis: ESRD Interval history: Patient was seen. Objective - Vital Signs Vital signs: Vital Signs Temp Pulse Resp BP Pulse Ox 03/30/18 07:37 99.0 F 67 16 156/62 100 03/30/18 05:00 97.8 F 75 17 160/86 100 03/29/18 22:20 100 03/29/18 20:00 98.7 F 71 15 134/46 100 Intake and Output 03/30/18 03/30/18 03/30/18 07:59 15:59 23:59 Intake Total 400 / 400 480 / 480 Output Total 100 / 100 Balance 300 / 300 480 / 480 Intake: Oral 400 / 400 480 / 480 Output: Catheter 100 / 100 Other: Meal Breakfast Percent of Meal Consumed 100% Weight 76.7 kg Blood Glucose* 130 Patient Weight 03/30/18 23:59 Weight 76.7 kg - General Appearance General appearance: Present: well-developed, well-nourished EENT: Present: ATNC Cardiology: Present: regular rate - Lab 03/30/18 04:35 03/30/18 04:35 Most recent lab results Calcium 8.3 mg/dL (8.6-10.3) L 03/30/18 04:35 Magnesium 1.9 mg/dL (1.6-2.6) 03/27/18 04:14 Consult Discharge Plan - Plan Instructions: Ampicillin (By mouth), Oxycodone/Acetaminophen (By mouth), Chest Pain (DC), Urinary Tract Infection in Women (DC), Hemodialysis (DC), Hemodialysis (GEN), Dialysis Diet (DC), Porter Catheter Placement and Care (DC), Diabetes Mellitus Type 2 in Adults (DC), Using Oxygen at Home (DC), Chronic Urinary Retention in Women (DC), Ureteral Stent Placement (DC), End-Stage Kidney Disease (DC) Additional Instructions: The patient needs to call to reschedule the pet scan herself they would not let me do it for her.. the number is You have an MRI of the brain scheduled on 04/04 Continue your Hemodialysis on Mon, Weds, Fri as you did before. You will keep your porter catheter in until you see Urologist, Dr. Welch. He will give suggestions on when to take it out. We set you up with [facility] for catheter care/maintenance. Continue Home oxygen through [employer] @ 2L @ night per previous. Your saturations are good without it during the day. Return to [facility] with previous passport services. [facility] appt April 04 Referrals: Bartolo Washburn MD [Primary Care Provider] - 04/06/18 1:15 pm () Eliud Welch MD [Partnered Physician] - 04/05/18 9:00 am Prescriptions: Ampicillin Trihydrate 500 mg PO TID #21 capsule OxyCODONE/APAP 5/325 [Percocet 5/325 MG] 1 tab PO TID PRN 3 Days #9 tablet PRN Reason: Pain
== END 2018-03-30 15:43 | disposition home health service (06) | DRG 689 ==
LOC: EMEROO 03:46 → 2NENU 03:46 → SUATTDRO 03-27 14:56
PROVIDERS: ADMIT Internal Medicine; ATTEND Internal Medicine

== ENCOUNTER 2018-06-25 18:57 | Observation (INO) ==
--- NOTE | 2018-06-25 19:05 | Emergency Department Note ---
Disposition Clinical Impression: Colitis Abdominal pain Qualifiers: Abdominal location: generalized Qualified Code(s): R10.84 - Generalized abdominal pain Back pain Qualifiers: Chronicity: unspecified Disposition: Admitted As Inpatient Condition: Fair Time of Disposition: 00:19 General Adult HPI - General Stated complaint: General Time Seen by Provider: 06/25/18 19:00 Nursing Notes Reviewed: Yes Vital Signs Reviewed: Yes - History of Present Illness HPI Narrative: 67-year-old female presents from [facility] care facility for evaluation of nausea , loose stools, thoracic back and shoulder pain. Onset approximate 4:30 this evening. All symptoms began spontaneously at the same time. She has diffuse abdominal pain most notable in the lower abdomen. Since symptom onset, she has had 2 normal bowel movements and 3 loose bowel movements. No melena. No hematochezia. She has nausea without vomiting. Not improved with her home pain pill (oxycodone/acetaminophen 5/325). PMH: CAD with ACS status post open heart surgery, end-stage renal disease on dialysis (she has not missed a dialysis session this week). GERD. COPD not requiring supplemental oxygen. Diabetes2 on oral and insulin. Right upper lobe cancer; has completed her fifth and final session of radiation recently. Abdominal surgical history: Hysterectomy, appendectomy, cholecystectomy ROS: Positive: As above Negative: Fever, chills, vomiting, chest pain, palpitations, upper extremity numbness/weakness/tingling, neck pain, headache, urinary frequency or dysuria, hematuria, melena, hematochezia, trauma. - Related Data Home Medications Medication Instructions Recorded Confirmed Folic Acid 1 mg PO DAILY 07/10/15 05/09/18 Levothyroxine [Synthroid] 50 mcg PO QAM 07/10/15 05/09/18 Pantoprazole Sodium [Protonix] 40 mg PO BID 07/10/15 05/09/18 Solifenacin Succinate [Vesicare] 10 mg PO DAILY 07/10/15 05/09/18 Docusate [Colace] 100 mg PO BID 10/14/16 05/09/18 Albuterol Sulfate [Proair Hfa] 2 puff IH Q4H PRN 03/17/17 05/09/18 Atorvastatin [Lipitor] 40 mg PO HS 03/17/17 05/09/18 Clopidogrel [Plavix] 75 mg PO DAILY 05/09/17 05/09/18 Ondansetron ODT [Zofran ODT] 4 mg PO Q8H PRN 05/09/17 05/09/18 Sucralfate [Carafate] 1 gm PO 0730,1630 05/09/17 05/09/18 Lisinopril [Zestril] 5 mg PO DAILY 07/05/17 05/09/18 Diclofenac Sodium 1 appl TP DAILY PRN 03/01/18 05/09/18 Folic Acid/Vit Bcomp,C [Renal-Elizabeth 0.8 mg PO DAILY 03/01/18 05/09/18 Tablet] Furosemide [Lasix] 20 mg PO DAILY 03/01/18 05/09/18 Amitriptyline [Elavil] 25 mg PO HS 03/26/18 05/09/18 Cyclobenzaprine [Flexeril] 10 mg PO QAM 03/26/18 05/09/18 DULoxetine [Cymbalta] 30 mg PO DAILY 03/26/18 05/09/18 Ergocalciferol (VITAMIN D2) 50,000 unit PO MO 03/26/18 05/09/18 [Drisdol] Insulin ASPART [NovoLOG] 10 unit SQ BID 03/26/18 05/09/18 Insulin DETEMIR [Levemir] 10 unit SQ BID 03/26/18 05/09/18 Tamsulosin [Flomax] 0.4 mg PO DAILY 03/26/18 05/09/18 Zolpidem [Ambien] 10 mg PO HS 03/26/18 05/09/18 Lactobacillus Combination No.8 1 cap PO DAILY 05/04/18 05/09/18 [Adult Probiotic] Pramipexole Di-HCl [Pramipexole 0.125 mg PO HS 05/04/18 05/09/18 Dihydrochloride] Promethazine [Phenergan] 25 mg PO TID PRN 05/04/18 05/09/18 Psyllium Husk [Daily Fiber] 0.52 gm PO DAILY 05/04/18 05/09/18 SUMAtriptan Succinate [Imitrex] 6 mg SQ BID PRN 05/04/18 05/09/18 Previous Rx's Medication Instructions Recorded Aspirin 81 mg PO DAILY #30 tab.chew 02/18/16 Metoprolol XL (24 HR) Succ [Toprol 12.5 mg PO DAILY #30 tab.er.24h 02/18/16 Xl] OxyCODONE/APAP 5/325 [Percocet 1 tab PO TID PRN 3 Days #9 tablet 03/30/18 5/325 MG] Allergies Allergy/AdvReac Type Severity Reaction Status Date / Time adhesive tape Allergy Redness of Verified 06/25/18 19:04 Skin latex Allergy Swelling Verified 06/25/18 19:04 of Lip/Tongue/Throat Sulfa (Sulfonamide Allergy Rash Verified 06/25/18 19:04 Antibiotics) All systems ED: reviewed and negative except as stated. Review of Systems: As Per HPI Past Medical History - Past Medical History Medical history: Reports: arthritis, cancer, coronary artery disease, diabetes, dialysis, GERD, hyperlipidemia, hypertension, myocardial infarction, renal disease, other Surgical history: Reports: appendectomy, cholecystectomy, coronary bypass (CABG) , hysterectomy, ureteral stent, other Psychiatric history: Reports: anxiety, depression MACHINE LACER history: Reports: no MACHINE LACER history - Social History Smoking Status: Former smoker Smokeless Tobacco Status: No Alcohol use: Reports: none Drug use: Reports: none Physical Exam Vital Signs Reviewed General: Patient is alert, oriented, and in no acute distress. Head: atraumatic, normocephalic Eye: normal appearance, no scleral icterus, no conjunctival injection ENT: mucous membranes moist, normal external ear exam Neck: normal inspection, trachea midline, full ROM Chest: normal inspection, symmetric chest rise Respiratory: Poor respiratory effort. Prolonged respiratory phase. Bilateral breath sounds are equal without wheezes, crackles, rhonchi. Cardiovascular: Regular rate and rhythm. No clicks, rubs, gallops, or murmors. Normal heart sounds. Abdomen: Bowel sounds present normoactive x-4 quadrants. Abdomen is soft, nondistended. Diffuse abdominal tenderness most notable in the hypogastrium and right lower quadrant. No guarding or rebound. No organomegaly noted. Musculoskeletal: Spontaneously moving all extremities. Skin: warm, dry, intact. Neuro: Alert and oriented x4. Sensation light touch intact. Psych: Patient's affect is appropriate for situation. 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 Currently undergoing stereotactic radiotherapy; Last treatment was 12 days ago. January 2018: Right thoracocentesis secondary to pleural effusion. Followed by [facility]. Patient has no neurologic symptoms. She does note that she had a problem with her aorta near her heart. I reviewed CT chest and CT abdomen pelvis in January and February of this year respectively. CT chest may no comment on aorta. CT abdomen pelvis specifically commented normal caliber aorta. I also attempted a bedside ultrasound to evaluate the patient's abdominal aorta; the vast majority was obscured by bowel gas. CT abdomen pelvis shows no aortic enlargement. X-ray shows no mediastinal widening. CT pelvis does show extensive colitis which is consistent with the patient's symptoms. We will begin Cipro Flagyl. Urinalysis is concerning for urinary tract infection. Urine culture was ordered separately. I discussed the above the admitting hospitalist, Dr. Francois, decreased to accept the patient for continued evaluation and management of colitis as well as urinary tract infection. He requests blood cultures which I will order for him. He has no additional questions or concerns this time. Abdomen/Pelvis CT 06/25/18 19:15 IMPRESSION: 1. Colonic wall thickening and pericolonic inflammatory changes consistent with colitis involving primarily the transverse, descending and rectosigmoid colon. 2. Right ureteral stent in place with decreased hydronephrosis. Stable bilateral renal atrophy. 3. Diffuse bladder wall thickening with infiltration of the pericystic fat consistent with cystitis. 4. Interval decrease in right pleural effusion. Persistent dependent right lower lobe volume loss. D/ / 06/25/2018 21:05:57 Neville Fraga MD / [facility] Interpreting Provider: Neville Fraga MD Chest X-Ray 06/25/18 19:30 IMPRESSION: Stable blunting of the right lateral costophrenic sulcus suggesting a mild dependent infiltrate and/or effusion. D/ / Neville Fraga MD / Neville Fraga MD Interpreting Provider: Neville Fraga MD Vital Signs Temperature 97.7 F 06/25/18 19:04 Pulse Rate 45 06/25/18 19:04 Respiratory Rate 20 06/25/18 19:04 Blood Pressure 104/93 06/25/18 19:04 O2 Sat by Pulse Oximetry 100 06/25/18 19:04 Temperature 98 F 06/25/18 22:30 Pulse Rate 96 06/25/18 22:30 Respiratory Rate 16 06/25/18 22:30 Blood Pressure 151/77 06/25/18 22:30 O2 Sat by Pulse Oximetry 97 06/25/18 22:30 Oxygen Delivery Oxygen Delivery Room Air Medical Decision Making - Lab Data Result diagrams: 06/25/18 19:43 06/25/18 19:43 Lab Results 06/25/18 06/25/18 06/25/18 Range/Units 19:43 19:43 20:44 WBC 8.1 (4.3-11.1) K/mcL RBC 4.57 (3.82-4.97) M/mcL Hgb 14.4 (11.5-15.4) g/dL Hct 44.9 (35.3-44.9) % MCV 98.2 (83.0-100.0) fL MCH 31.5 (28.0-33.3) pg MCHC 32.1 (31.6-35.5) g/dL RDW 13.4 (11.5-14.5) % Plt Count 186 (140-400) K/mcL MPV 10.6 (9.4-12.4) fL Immature Gran % 0.2 (0-4) % Seg Neutrophils % 69.1 % Lymphocytes % 20.0 % Monocytes % 7.2 % Eosinophils % 2.9 % Basophils % 0.6 % Neutrophils # 5.6 (1.6-8.9) K/mcL Lymphocytes # 1.6 (0.6-4.6) K/mcL Monocytes # 0.6 (0.0-1.3) K/mcL Eosinophils # 0.2 (0.0-0.6) K/mcL Basophils # 0.1 (0.0-0.2) K/mcL Sodium 134 L (136-145) mEq/L Potassium 5.0 (3.5-5.1) mEq/L Chloride 102 (98-107) mEq/L Carbon Dioxide 23 (23-29) mEq/L BUN 82 H (8-23) mg/dL Creatinine 3.67 H (0.60-1.20) mg/dL Est GFR ( Amer) 15 L (> 60) Est GFR (Non-Af Amer) 12 L (> 60) BUN/Creatinine Ratio 22 (6-26) Glucose 190 H (70-105) mg/dL Calculated Osmolality 308 H (280-300) Calcium 9.3 (8.6-10.3) mg/dL Total Bilirubin 0.3 (0.3-1.0) mg/dL Direct Bilirubin 0.1 (0.0-0.2) mg/dL Indirect Bilirubin 0.2 (0.0-1.2) mg/dL AST 29 (13-39) Units/L ALT 34 (7-52) Units/L Alkaline Phosphatase 166 H (34-104) Units/L Serum Total Protein 6.7 (6.4-8.9) g/dL Albumin 3.5 (3.5-5.7) g/dL Globulin 3.2 (2.4-3.5) g/dL Albumin/Globulin Ratio 1.1 (1.1-2.2) Lipase 19 (11-82) Units/L Urine Color Other A (Yellow) Urine Clarity Turbid A (Clear) Urine pH 7.0 (5.0-8.0) pH Units Ur Specific [place] 1.011 (1.010-1.025) Urine Protein >=300 H (Neg-Trace) mg/dL Urine Glucose (UA) Normal (Normal) mg/dL Urine Ketones Negative (Negative) mg/dL Urine Blood Large H (Negative) Urine Nitrite Negative (Negative) Urine Bilirubin Negative (Negative) Urine Urobilinogen Normal (Normal) mg/dL Ur Leukocyte Esterase Moderate H (Negative) Urine Microscopic RBC TNTC H (0-3) per hpf Urine Microscopic WBC TNTC H (0-3) per hpf Ur Squamous Epith Cells Many H (None-Few) per lpf Urine Bacteria Many H (None-Few) per hpf Ur Culture Indicated? NO. A (NO)
[2018-06-25] MEDS ORDERED: Ondansetron 4 MG/2 ML VIAL IVP STA (19:18)
[2018-06-25] MEDS ORDERED: *HR* FentaNYL (PF) 100 MCG/2 ML VIAL IVP ONE (19:18)
--- NOTE | 2018-06-25 19:49 | Emergency Department Note ---
Disposition Clinical Impression: Colitis Abdominal pain Qualifiers: Abdominal location: generalized Qualified Code(s): R10.84 - Generalized abdominal pain Back pain Qualifiers: Chronicity: unspecified Disposition: Admitted As Inpatient Forms: ED Satisfaction Letter General Adult HPI - General Chief complaint: ED Nausea/Vomiting/Diarrhea Stated complaint: NV/back pain Time Seen by Provider: 06/25/18 19:00 Source: patient, EMS Limitations: no limitations - History of Present Illness Pain Scale: 5 - Related Data Home Medications Medication Instructions Recorded Confirmed Folic Acid 1 mg PO DAILY 07/10/15 05/09/18 Levothyroxine [Synthroid] 50 mcg PO QAM 07/10/15 05/09/18 Pantoprazole Sodium [Protonix] 40 mg PO BID 07/10/15 05/09/18 Solifenacin Succinate [Vesicare] 10 mg PO DAILY 07/10/15 05/09/18 Docusate [Colace] 100 mg PO BID 10/14/16 05/09/18 Albuterol Sulfate [Proair Hfa] 2 puff IH Q4H PRN 03/17/17 05/09/18 Atorvastatin [Lipitor] 40 mg PO HS 03/17/17 05/09/18 Clopidogrel [Plavix] 75 mg PO DAILY 05/09/17 05/09/18 Ondansetron ODT [Zofran ODT] 4 mg PO Q8H PRN 05/09/17 05/09/18 Sucralfate [Carafate] 1 gm PO 0730,1630 05/09/17 05/09/18 Lisinopril [Zestril] 5 mg PO DAILY 07/05/17 05/09/18 Diclofenac Sodium 1 appl TP DAILY PRN 03/01/18 05/09/18 Folic Acid/Vit Bcomp,C [Renal-Elizabeth 0.8 mg PO DAILY 03/01/18 05/09/18 Tablet] Furosemide [Lasix] 20 mg PO DAILY 03/01/18 05/09/18 Amitriptyline [Elavil] 25 mg PO HS 03/26/18 05/09/18 Cyclobenzaprine [Flexeril] 10 mg PO QAM 03/26/18 05/09/18 DULoxetine [Cymbalta] 30 mg PO DAILY 03/26/18 05/09/18 Ergocalciferol (VITAMIN D2) 50,000 unit PO MO 03/26/18 05/09/18 [Drisdol] Insulin ASPART [NovoLOG] 10 unit SQ BID 03/26/18 05/09/18 Insulin DETEMIR [Levemir] 10 unit SQ BID 03/26/18 05/09/18 Tamsulosin [Flomax] 0.4 mg PO DAILY 03/26/18 05/09/18 Zolpidem [Ambien] 10 mg PO HS 03/26/18 05/09/18 Lactobacillus Combination No.8 1 cap PO DAILY 05/04/18 05/09/18 [Adult Probiotic] Pramipexole Di-HCl [Pramipexole 0.125 mg PO HS 05/04/18 05/09/18 Dihydrochloride] Promethazine [Phenergan] 25 mg PO TID PRN 05/04/18 05/09/18 Psyllium Husk [Daily Fiber] 0.52 gm PO DAILY 05/04/18 05/09/18 SUMAtriptan Succinate [Imitrex] 6 mg SQ BID PRN 05/04/18 05/09/18 Previous Rx's Medication Instructions Recorded Aspirin 81 mg PO DAILY #30 tab.chew 02/18/16 Metoprolol XL (24 HR) Succ [Toprol 12.5 mg PO DAILY #30 tab.er.24h 02/18/16 Xl] OxyCODONE/APAP 5/325 [Percocet 1 tab PO TID PRN 3 Days #9 tablet 03/30/18 5/325 MG] Allergies Allergy/AdvReac Type Severity Reaction Status Date / Time adhesive tape Allergy Redness of Verified 06/25/18 19:04 Skin latex Allergy Swelling Verified 06/25/18 19:04 of Lip/Tongue/Throat Sulfa (Sulfonamide Allergy Rash Verified 06/25/18 19:04 Antibiotics) Past Medical History - Past Medical History Medical history: Reports: arthritis, cancer, coronary artery disease, diabetes, dialysis, GERD, hyperlipidemia, hypertension, myocardial infarction, renal disease, other Surgical history: Reports: appendectomy, cholecystectomy, coronary bypass (CABG) , hysterectomy, ureteral stent, other Psychiatric history: Reports: anxiety, depression ANATOMY PROFESSOR history: Reports: no ANATOMY PROFESSOR history - Social History Smoking Status: Former smoker Smokeless Tobacco Status: No Alcohol use: Reports: none Drug use: Reports: none Physical Exam - General Limitations: no limitations General appearance: alert Course Vital Signs Temperature 97.7 F 06/25/18 19:04 Pulse Rate 45 06/25/18 19:04 Respiratory Rate 20 06/25/18 19:04 Blood Pressure 104/93 06/25/18 19:04 O2 Sat by Pulse Oximetry 100 06/25/18 19:04 Temperature 97.7 F 06/25/18 19:04 Pulse Rate 69 06/25/18 21:19 Respiratory Rate 18 06/25/18 21:19 Blood Pressure 97/47 06/25/18 21:19 O2 Sat by Pulse Oximetry 95 06/25/18 21:19 Oxygen Delivery Oxygen Delivery Room Air Medical Decision Making - Lab Data Result diagrams: 06/25/18 19:43 06/25/18 19:43 Lab Results 06/25/18 06/25/18 06/25/18 Range/Units 19:43 19:43 20:44 WBC 8.1 (4.3-11.1) K/mcL RBC 4.57 (3.82-4.97) M/mcL Hgb 14.4 (11.5-15.4) g/dL Hct 44.9 (35.3-44.9) % MCV 98.2 (83.0-100.0) fL MCH 31.5 (28.0-33.3) pg MCHC 32.1 (31.6-35.5) g/dL RDW 13.4 (11.5-14.5) % Plt Count 186 (140-400) K/mcL MPV 10.6 (9.4-12.4) fL Immature Gran % 0.2 (0-4) % Seg Neutrophils % 69.1 % Lymphocytes % 20.0 % Monocytes % 7.2 % Eosinophils % 2.9 % Basophils % 0.6 % Neutrophils # 5.6 (1.6-8.9) K/mcL Lymphocytes # 1.6 (0.6-4.6) K/mcL Monocytes # 0.6 (0.0-1.3) K/mcL Eosinophils # 0.2 (0.0-0.6) K/mcL Basophils # 0.1 (0.0-0.2) K/mcL Sodium 134 L (136-145) mEq/L Potassium 5.0 (3.5-5.1) mEq/L Chloride 102 (98-107) mEq/L Carbon Dioxide 23 (23-29) mEq/L BUN 82 H (8-23) mg/dL Creatinine 3.67 H (0.60-1.20) mg/dL Est GFR ( Amer) 15 L (> 60) Est GFR (Non-Af Amer) 12 L (> 60) BUN/Creatinine Ratio 22 (6-26) Glucose 190 H (70-105) mg/dL Calculated Osmolality 308 H (280-300) Calcium 9.3 (8.6-10.3) mg/dL Total Bilirubin 0.3 (0.3-1.0) mg/dL Direct Bilirubin 0.1 (0.0-0.2) mg/dL Indirect Bilirubin 0.2 (0.0-1.2) mg/dL AST 29 (13-39) Units/L ALT 34 (7-52) Units/L Alkaline Phosphatase 166 H (34-104) Units/L Serum Total Protein 6.7 (6.4-8.9) g/dL Albumin 3.5 (3.5-5.7) g/dL Globulin 3.2 (2.4-3.5) g/dL Albumin/Globulin Ratio 1.1 (1.1-2.2) Lipase 19 (11-82) Units/L Urine Color Other A (Yellow) Urine Clarity Turbid A (Clear) Urine pH 7.0 (5.0-8.0) pH Units Ur Specific [place] 1.011 (1.010-1.025) Urine Protein >=300 H (Neg-Trace) mg/dL Urine Glucose (UA) Normal (Normal) mg/dL Urine Ketones Negative (Negative) mg/dL Urine Blood Large H (Negative) Urine Nitrite Negative (Negative) Urine Bilirubin Negative (Negative) Urine Urobilinogen Normal (Normal) mg/dL Ur Leukocyte Esterase Moderate H (Negative) Urine Microscopic RBC TNTC H (0-3) per hpf Urine Microscopic WBC TNTC H (0-3) per hpf Ur Squamous Epith Cells Many H (None-Few) per lpf Urine Bacteria Many H (None-Few) per hpf Ur Culture Indicated? NO. A (NO) Attestation Statement - Attestation Attestation: I examined this patient and my medical decision-making was reviewed with the Resident Physician. I agree with the documented findings, disposition and treatment plan as described except to the extent set forth below. 67-year-old female presents emergency room for abdominal pain and upper back pain. Patient has a history of lung cancer and just had a right Pleurx catheter removed a few days ago. She is complaining of diffuse back pain at this point as well as diffuse abdominal pain. She denies any leg pain. She denies chest pain. She describes the pain as a dull pain. It is not a tearing or shearing type of pain. Patient also gets hemodialysis 3 times a week for chronic renal failure. She states she does make some urine. At this time her main complaints are her abdominal pain and back pain. We will check belly labs as well as a CT the abdomen and pelvis and a chest x-ray to ascertain whether or not her right pleural effusion has reaccumulated or not. This could be the cause of her back pain. Also did a quick bedside aortic ultrasound done by the resident which did not show any significant findings to the aorta. Disposition pending at this time. workup for this abdominal pain and back pain.
[2018-06-25 19:53] LABS: Basophils # 0.1 K/mcL (0.0-0.2); Basophils % 0.6 %; Eosinophils # 0.2 K/mcL (0.0-0.6); Eosinophils % 2.9 %; Hematocrit 44.9 % (35.3-44.9); Hemoglobin 14.4 g/dL (11.5-15.4); Immature Granulocytes % 0.2 % (0-4); Lymphocytes # 1.6 K/mcL (0.6-4.6); Mean Corpuscular HGB Conc 32.1 g/dL (31.6-35.5); Mean Corpuscular Hemoglobin 31.5 pg (28.0-33.3); Mean Corpuscular Volume 98.2 fL (83.0-100.0); Mean Platelet Volume 10.6 fL (9.4-12.4); Monocytes # 0.6 K/mcL (0.0-1.3); Monocytes % 7.2 %; Neutrophils # 5.6 K/mcL (1.6-8.9); Platelet Count 186 K/mcL (140-400); Red Blood Count 4.57 M/mcL (3.82-4.97); Red Cell Distribution Width 13.4 % (11.5-14.5); Segmented Neutrophils % 69.1 %
[2018-06-25 20:14] LABS: Albumin 3.5 g/dL (3.5-5.7); Albumin/Globulin Ratio 1.1 (1.1-2.2); Bilirubin,Direct 0.1 mg/dL (0.0-0.2); Bilirubin,Indirect 0.2 mg/dL (0.0-1.2); Bilirubin,Total 0.3 mg/dL (0.3-1.0); Calcium 9.3 mg/dL (8.6-10.3); Globulin 3.2 g/dL (2.4-3.5); Total Protein 6.7 g/dL (6.4-8.9)
[2018-06-25 20:53] LABS: Bilirubin,Urine Negative (Negative); Blood,Urine Large (Negative); Clarity,Urine Turbid (Clear); Color,Urine Other (Yellow); Glucose,Urine (UA) Normal (Normal); Ketones,Urine Negative (Negative); Leukocyte Esterase,Urine Moderate (Negative); Nitrite,Urine Negative (Negative); Protein,Urine >=300 mg/dL (Neg-Trace); Specific Gravity,Urine 1.011 (1.010-1.025); Urobilinogen,Urine Normal (Normal)
[2018-06-25 20:55] LABS: Bacteria,Urine Many per hpf (None-Few); RBC,Urine TNTC per hpf (0-3); Squamous Epithelial Cell,Urine Many per lpf (None-Few); WBC,Urine TNTC per hpf (0-3)
[2018-06-25] MEDS ORDERED: MetroNIDAZOLE 500 MG/100 ML 500 MG/100 ML BAG IVPB ONE (21:14)
[2018-06-25] MEDS ORDERED: 0.9 % Sodium Chloride 1,000 ML IVC ONE (21:24)
[2018-06-26] MEDS ORDERED: Naloxone 0.4 MG/ML INJ IVP PRN (01:38)
[2018-06-26] MEDS ORDERED: D5% in Water 1,000 ML IVC PRN (01:47)
[2018-06-26] MEDS ORDERED: Dextrose Gel 15 GM/37.5 ML TUBE PO PRN ×2 (01:47)
[2018-06-26] MEDS ORDERED: *HR* Dextrose 50 % in Water (Syg) 50 ML SYRINGE IVP PRN (01:47)
[2018-06-26] MEDS ORDERED: Ondansetron 4 MG/2 ML VIAL IVP PRN (02:22)
[2018-06-26] MEDS: Insulin LISPRO 300 UNITS/3 ML VIAL SQ SCH ×4 (05:35→22:31)
[2018-06-26] MEDS: OXYCODONE Oral CONC 10 MG/0.5 ML ORAL.SYG SL PRN ×3 (05:46→21:47)
[2018-06-26] MEDS ORDERED: MetroNIDAZOLE 500 MG/100 ML 500 MG/100 ML BAG IVPB SCH (06:00)
[2018-06-26 06:20] LABS: Hematocrit 38.2 % (35.3-44.9); Hemoglobin 12.2 g/dL (11.5-15.4); Mean Corpuscular HGB Conc 31.9 g/dL (31.6-35.5); Mean Corpuscular Hemoglobin 30.8 pg (28.0-33.3); Mean Corpuscular Volume 96.5 fL (83.0-100.0); Mean Platelet Volume 10.5 fL (9.4-12.4); Platelet Count 162 K/mcL (140-400); Red Blood Count 3.96 M/mcL (3.82-4.97); Red Cell Distribution Width 13.5 % (11.5-14.5)
[2018-06-26 06:39] LABS: Calcium 8.7 mg/dL (8.6-10.3); Potassium 5.4 mEq/L (3.5-5.1)
--- NOTE | 2018-06-26 06:55 | Internal Med History&Physical ---
Date of Encounter: 06/26/18 Time of Encounter: 12:40 Internal Medicine - H&P: HPI Chief complaint: Colitis Admitted From: Emergency Dept Plans for Post Hospital Care: Home History of present illness: Ms. Dan is a 67 year old female Patient states that she was feeling okay up until around suppertime the day of admission. She states after she ate she had several bowel movements and had abdominal cramping as well. She never quite had anything like this before. She has a history of end-stage renal disease with right arm dialysis fistula. She also has a history of COPD, and right upper lung cancer with recent radiation treatment. 3 months ago patient presented with chest pain that had associated diarrhea as well. He thought perhaps this was related to her heart again so she came to the ER for further evaluation. In the ER abdominal pelvic CT showed pericolonic inflammation changes consistent with colitis involving primarily the transverse, descending and rectosigmoid colon. There is also diffuse bladder wall thickening with infiltration the pericystic fat consistent with cystitis. She was admitted for further management of her colitis. Upon my assessment patient states that she has had some nausea and diarrhea but denies chest pain. She indicates that while she was down in the ER she had a bowel movement that was bloody. Occult blood test not performed in the ER. Past Med Surg Social Fam HX - Past Medical History Medical history: arthritis, cancer, coronary artery disease, diabetes, dialysis , GERD, hyperlipidemia, hypertension, myocardial infarction, renal disease, other Additional medical history: neuropathy, insomnia Psychiatric history: anxiety, depression - Past Surgical History Surgical History: appendectomy, cholecystectomy, coronary bypass (CABG), hysterectomy, ureteral stent, other Additional surgical history: colonoscopy - egd - tubal ligation - kdney stent - Social History Smoking Status: Former smoker Smokeless Tobacco Status: No Alcohol use: none Drug use: none - Family History Mother Living Status: Hx Family Endocrine Disorder: (DM) Father Adopted: No Hx Family Cardiac Disorders: Yes ("heart troubles") Hx Family Cancer: Yes (Prostate cancer) Hx Family Endocrine Disorder: Yes (DM) Brother Hx Family Cardiac Disorders: Yes (CAD) Hx Family Cancer: Yes (lung cancer) Internal Medicine - H&P: Meds Folic Acid 1 mg PO DAILY 07/10/15 [History] Levothyroxine [Synthroid] 50 mcg PO QAM 07/10/15 [History] Pantoprazole Sodium [Protonix] 40 mg PO BID 07/10/15 [History] Solifenacin Succinate [Vesicare] 10 mg PO DAILY 07/10/15 [History] Aspirin 81 mg PO DAILY #30 tab.chew 02/18/16 [Rx] Metoprolol XL (24 HR) Succ [Toprol Xl] 12.5 mg PO DAILY #30 tab.er.24h 02/18/16 [Rx] Docusate [Colace] 100 mg PO BID 10/14/16 [History] Albuterol Sulfate [Proair Hfa] 2 puff IH Q4H PRN 03/17/17 [History] Atorvastatin [Lipitor] 40 mg PO HS 03/17/17 [History] Clopidogrel [Plavix] 75 mg PO DAILY 05/09/17 [History] Ondansetron ODT [Zofran ODT] 4 mg PO Q8H PRN 05/09/17 [History] Sucralfate [Carafate] 1 gm PO 0730,1630 05/09/17 [History] Lisinopril [Zestril] 5 mg PO DAILY 07/05/17 [History] Diclofenac Sodium 1 appl TP DAILY PRN 03/01/18 [History] Folic Acid/Vit Bcomp,C [Renal-Elizabeth Tablet] 0.8 mg PO DAILY 03/01/18 [History] Furosemide [Lasix] 20 mg PO DAILY 03/01/18 [History] Amitriptyline [Elavil] 25 mg PO HS 03/26/18 [History] Cyclobenzaprine [Flexeril] 10 mg PO QAM 03/26/18 [History] DULoxetine [Cymbalta] 30 mg PO DAILY 03/26/18 [History] Ergocalciferol (VITAMIN D2) [Drisdol] 50,000 unit PO MO 03/26/18 [History] Insulin ASPART [NovoLOG] 10 unit SQ BID 03/26/18 [History] Insulin DETEMIR [Levemir] 10 unit SQ BID 03/26/18 [History] Tamsulosin [Flomax] 0.4 mg PO DAILY 03/26/18 [History] Zolpidem [Ambien] 10 mg PO HS 03/26/18 [History] OxyCODONE/APAP 5/325 [Percocet 5/325 MG] 1 tab PO TID PRN 3 Days #9 tablet 03/30 [Rx] Lactobacillus Combination No.8 [Adult Probiotic] 1 cap PO DAILY 05/04/18 [ History] Pramipexole Di-HCl [Pramipexole Dihydrochloride] 0.125 mg PO HS 05/04/18 [ History] Promethazine [Phenergan] 25 mg PO TID PRN 05/04/18 [History] Psyllium Husk [Daily Fiber] 0.52 gm PO DAILY 05/04/18 [History] SUMAtriptan Succinate [Imitrex] 6 mg SQ BID PRN 05/04/18 [History] 3 Allergy/AdvReac Type Severity Reaction Status Date / Time adhesive tape Allergy Redness of Verified 06/25/18 19:04 Skin latex Allergy Swelling Verified 06/25/18 19:04 of Lip/Tongue/Throat Sulfa (Sulfonamide Allergy Rash Verified 06/25/18 19:04 Antibiotics) All Systems PM: A 10-system review of systems was performed and is negative for pertinent findings except as documented above in the HPI. - Constitutional Vitals: Temp Pulse Resp BP Pulse Ox 98.1 F 76 16 124/85 97 06/26/18 04:08 06/26/18 04:08 06/26/18 04:08 06/26/18 04:08 06/26/18 04:08 General appearance: Present: cooperative, A&O X 3, pleasant, no acute distress, answers questions appropriately Exam: Patient awake and alert x3 - Head Head exam: Present: normal inspection - Eye Eye exam: Present: EOMI, normal appearance - Respiratory Respiratory exam: Present: CTAB. Absent: respiratory distress, wheezes - Cardiovascular Cardiovascular exam: Present: RRR, +S2, systolic murmur. Absent: diastolic murmur - GI/Abdominal GI/Abdominal exam: Present: normal bowel sounds, soft. Absent: tenderness - Extremities Exam Extremities exam: Present: warm, radial pulses palpable and symmetrical. Absent : pedal edema, tenderness - Neurological Exam Neurological exam: Present: no focal deficits, strengths equal and symetr throughout. Absent: motor sensory deficit, facial droop, speech deficit - Skin Skin exam: Present: dry, normal color, warm Internal Med - H&P Results - Labs CBC & Chem 7: 06/26/18 05:56 06/26/18 05:56 Labs: Short CBC 06/26/18 Range/Units 05:56 WBC 10.0 (4.3-11.1) K/mcL Hgb 12.2 D (11.5-15.4) g/dL Hct 38.2 (35.3-44.9) % Plt Count 162 (140-400) K/mcL BMP 06/26/18 05:56 Sodium 135 L Potassium 5.4 H Chloride 105 Carbon Dioxide 22 L BUN 84 H Creatinine 3.64 H Glucose 137 H Calcium 8.7 - Assessment and plan (1) Colitis Current Visit: Yes Status: Acute Assessment and plan: As evidenced by CT, patient had several bouts of diarrhea. Patient's abdomen not tender to exam with palpation. NPO for now, consider GI consult regarding blood in stool, possible scope Continue flagyl and ciprofloxacin Follow up blood cultures (2) Diarrhea Current Visit: No Status: Acute Assessment and plan: Secondary to colitis, possible blood in stool as well. Occult blood test today. Treatment of colitis as above. Qualifiers: Diarrhea type: unspecified type Qualified Code(s): R19.7 - Diarrhea, unspecified (3) ESRD (end stage renal disease) Current Visit: No Status: Acute Assessment and plan: Nephrology consultation for continuing dialysis. Regular days MWF. (4) Insulin dependent diabetes mellitus Current Visit: No Status: Chronic Assessment and plan: Patient NPO for now Monitor sugars Q6H Sliding scale insulin meanwhile as needed (5) Nausea Current Visit: Yes Status: Acute Assessment and plan: Zofran as needed - Time Spent With Patient Total time spent is greater than 50% in coordination of care (as documented) at patient's floor/unit and/or counseling patient: Greater than 35 minutes
[2018-06-26 07:30] LABS: Hepatitis B Surface Antibody 2.72 mIU/mL; Hepatitis B Surface Antigen Nonreactive (Nonreactive)
--- NOTE | 2018-06-26 08:32 | Event Note ---
Addendum entered and electronically signed by Felipe Mehta 06/26/18 11:34: Rule out GIB -GI consulted -H&H q8hr -Hemoglobin admission 14 ---> 12.2 ---> 10.9 -IVP Protonix 40mg daily Original Note: <Felipe Mehta - Last Filed: 06/26/18 08:27> Date of Encounter: 06/26/18 Time of Encounter: 08:30 Pt is seen at bedside. She was admitted last night after multiple episodes of diarrhea and abdominal cramping. She states that she had abd pain all over her belly without radiation. The patient has continued to have diarrhea since admission. She is coming from an assisted living facility. Pt has PMH of ESRD with right arm fistula, COPD, and lung cancer. She has HDL, T2DM, hypothyroidism, and migraine headaches. The pt presented with chest pain and a similar episode of diarrhea 3mos ago, which resolved. At this time, the pt has no complaints of chest pain or SOB. She has still has multiple episodes of diarrhea since admission. The pt denies N/V. Denies problems with eating. PE: vitals 98.2, 72, 16, 132/69, 94% general - NAD, AOx3 Cardio - RRR, S1S2 Lungs - CTAB, no wheeze Abd - NTND, no rebound or guarding Extremities - palpable thrill in the right arm, consistent with AV fistula Pt had CT scan that showed colitis involving transverse descending rectosigmoid colon, right urethral stent with no hydronephrosis, Bladder wall thickening consistent with cystitis. CXR showed blunting of the right costophrenic angle, infiltrate vs effusion Labs - hemoglobin 12.2, hct 38.2; Na 135, K 5.4, BUN 84, [place] 3.64 Fluids - none Electrolytes - potassium 5.5 Nutrition - keep NPO in case GI to see DVT prophylaxis - SCDs GI proohylaxis - not indicated A/P 1) Colitis -CT scan that showed colitis involving transverse descending rectosigmoid colon , right urethral stent with no hydronephrosis, Bladder wall thickening consistent with cystitis -pt has had multiple episodes of diarrhea, nonbloody -GI consulted -keep NPO -check c dif stool -FOBT pending -continue flagyl/cipro day 2 2) Diarrhea -as above 3) ESRD -pt has chronic hx of kidney dz -BUN 84, [place] 3.64 -baseline BUN in 30's to 40's, baseline creatinine 1.3-2.8 -nephrology consulted -Pt to go to dialysis today -AV fistula in place in right arm 4) T2DM -NPO right now -blood glucose this AM 134 -Sliding scale insulin as needed; takes Novolog 10U BID, lispro 10U BID 5) DVT prophylaxis -on SCD's <Tamara Sharma - Last Filed: 06/26/18 16:18> Date of Encounter: 06/26/18 I examined this patient and my medical decision-making was reviewed with the Resident Physician Dr. Mehta. I agree with the documented findings, disposition and treatment plan as described except to the extent set forth below. Ms. Dan is a 67 y/o F PMH of ESRD on M/W/F HD, COPD, lung cancer, HDL, T2DM and hypothyroidism pt presented to ER intractable abdominal pain, diarrhea and bright red blood per rectum. She denied any more diarrhea this morning. Gen: A, A, O x 3 Chest: Diminished BS b/l Heart: S1S2+ RRR No murmurs Abd: soft, NT, BS+ Abd: Soft, NT a/p 1. Acute colitis - mostly infectious need to r/o C. Diff cont Cipro and Flagyl 2. Acute lower GI bleed / Bright red blood per rectum 3. Acute blood loss anemia cont close monitoring of H/H NPO Gentle IV hydration GI consulted PPI IV
[2018-06-26] MEDS ORDERED: 0.9 % Sodium Chloride 250 ML IVC PRN (08:53)
[2018-06-26] MEDS ORDERED: 0.9 % Sodium Chloride 2,000 ML ONE (09:15)
[2018-06-26] MEDS ORDERED: 0.9 % Sodium Chloride 1,000 ML IVC PRN (09:21)
--- NOTE | 2018-06-26 09:45 | Nephrology Consult Note ---
Date of Encounter: 06/26/18 Time of Encounter: 09:41 Assessment and Plan (1) ESRD (end stage renal disease) Current Visit: Yes Status: Acute Current regimen is MWF at [facility]. Last tx was Tuesday in HD center. Plan for HD today. Avoid nephrotoxins and renal dose all medications. Renal diet, when able to eat, is NPO now. (2) Abdominal pain Current Visit: Yes Status: Acute Per primary. Qualifiers: Abdominal location: generalized Qualified Code(s): R10.84 - Generalized abdominal pain (3) Colitis Current Visit: Yes Status: Acute Per primary. (4) Nausea Current Visit: Yes Status: Acute Continue with antiemetics. History of Present Illness - Reason for Consult Consult date: 06/26/18 end stage renal disease - Chief Complaint abdominal pain - History of Present Illness Ms. Dan is a 67 year old female with ESRD on HD MWF at [facility]. PMH: arthritis, cancer, coronary artery disease, diabetes, dialysis, GERD, hyperlipidemia, hypertension, myocardial infarction. She presented to ED from [facility] care facility with abdominal pain and loose stool at started at 4:30 pm yesterday. She did just finish 5 rounds of radiation for lung Ca. CT abdomen did show colitis and was admitted for further management. Past Med Surg Social Fam HX - Past Medical History Medical history: arthritis, cancer, coronary artery disease, diabetes, dialysis , GERD, hyperlipidemia, hypertension, myocardial infarction, renal disease, other Additional medical history: neuropathy, insomnia Psychiatric history: anxiety, depression - Past Surgical History Surgical History: appendectomy, cholecystectomy, coronary bypass (CABG), hysterectomy, ureteral stent, other Additional surgical history: colonoscopy - egd - tubal ligation - kdney stent - Social History Smoking Status: Former smoker Smokeless Tobacco Status: No Alcohol use: none Drug use: none - Family History Mother Living Status: Hx Family Endocrine Disorder: (DM) Father Adopted: No Hx Family Cardiac Disorders: Yes ("heart troubles") Hx Family Cancer: Yes (Prostate cancer) Hx Family Endocrine Disorder: Yes (DM) Brother Hx Family Cardiac Disorders: Yes (CAD) Hx Family Cancer: Yes (lung cancer) Medications and Allergies Folic Acid 1 mg PO DAILY 07/10/15 [History] Levothyroxine [Synthroid] 50 mcg PO QAM 07/10/15 [History] Pantoprazole Sodium [Protonix] 40 mg PO BID 07/10/15 [History] Solifenacin Succinate [Vesicare] 10 mg PO DAILY 07/10/15 [History] Aspirin 81 mg PO DAILY #30 tab.chew 02/18/16 [Rx] Metoprolol XL (24 HR) Succ [Toprol Xl] 12.5 mg PO DAILY #30 tab.er.24h 02/18/16 [Rx] Docusate [Colace] 100 mg PO BID 10/14/16 [History] Albuterol Sulfate [Proair Hfa] 2 puff IH Q4H PRN 03/17/17 [History] Atorvastatin [Lipitor] 40 mg PO HS 03/17/17 [History] Clopidogrel [Plavix] 75 mg PO DAILY 05/09/17 [History] Ondansetron ODT [Zofran ODT] 4 mg PO Q8H PRN 05/09/17 [History] Sucralfate [Carafate] 1 gm PO 0730,1630 05/09/17 [History] Lisinopril [Zestril] 5 mg PO DAILY 07/05/17 [History] Diclofenac Sodium 1 appl TP DAILY PRN 03/01/18 [History] Folic Acid/Vit Bcomp,C [Renal-Elizabeth Tablet] 0.8 mg PO DAILY 03/01/18 [History] Furosemide [Lasix] 20 mg PO DAILY 03/01/18 [History] Amitriptyline [Elavil] 25 mg PO HS 03/26/18 [History] Cyclobenzaprine [Flexeril] 10 mg PO QAM 03/26/18 [History] DULoxetine [Cymbalta] 30 mg PO DAILY 03/26/18 [History] Ergocalciferol (VITAMIN D2) [Drisdol] 50,000 unit PO MO 03/26/18 [History] Insulin ASPART [NovoLOG] 10 unit SQ BID 03/26/18 [History] Insulin DETEMIR [Levemir] 10 unit SQ BID 03/26/18 [History] Tamsulosin [Flomax] 0.4 mg PO DAILY 03/26/18 [History] Zolpidem [Ambien] 10 mg PO HS 03/26/18 [History] OxyCODONE/APAP 5/325 [Percocet 5/325 MG] 1 tab PO TID PRN 3 Days #9 tablet 03/30 [Rx] Lactobacillus Combination No.8 [Adult Probiotic] 1 cap PO DAILY 05/04/18 [ History] Pramipexole Di-HCl [Pramipexole Dihydrochloride] 0.125 mg PO HS 05/04/18 [ History] Promethazine [Phenergan] 25 mg PO TID PRN 05/04/18 [History] Psyllium Husk [Daily Fiber] 0.52 gm PO DAILY 05/04/18 [History] SUMAtriptan Succinate [Imitrex] 6 mg SQ BID PRN 05/04/18 [History] 3 Allergy/AdvReac Type Severity Reaction Status Date / Time adhesive tape Allergy Redness of Verified 06/25/18 19:04 Skin latex Allergy Swelling Verified 06/25/18 19:04 of Lip/Tongue/Throat Sulfa (Sulfonamide Allergy Rash Verified 06/25/18 19:04 Antibiotics) Review of Systems Constitutional: anorexia, no fever(s) Cardiovascular: no chest pain Gastrointestinal: diarrhea, loose stools, nausea, no vomiting Exam - Vital Signs Vital signs: Initial Vital Signs Temp Pulse Resp BP Pulse Ox 97.7 F 45 20 104/93 100 06/25/18 19:04 06/25/18 19:04 06/25/18 19:04 06/25/18 19:04 06/25/18 19:04 Vital Signs - Last 8 Hours Temp Pulse Resp BP Pulse Ox 06/26/18 06:44 98.2 F 72 16 132/69 94 06/26/18 04:08 98.1 F 76 16 124/85 97 Intake and Output 06/25/18 06/26/18 06/26/18 23:59 07:59 15:59 Intake Total 100 / 100 Output Total 0 / 0 Balance 100 / 100 Intake: IV Fluids 100 / 100 Flagyl Premix 500 MG/100 ML 500 100 / 100 mg In 100 ml @ 100 mls/hr IVPB Q6HR [id number] Rx#:[id number] Output: Urine 0 / 0 Other: # Voids 1 # Urine Diapers 1 Weight 75.6 kg Blood Glucose* 139 117 - General Appearance General appearance: well-developed, well-nourished EENT: ATNC, hearing intact, vision intact Neck: supple Respiratory: clear Cardiology: no edema, normal S1, normal S2 - Dialysis Access Dialysis Vascular Access: Arteriovenous Fistula thrill: Yes bruit: Yes Gastrointestinal: normoactive bowel sounds, no tenderness, no guarding Integumentary: no rash, warm and dry Neurologic: alert and oriented x3 Psychiatric: mood/affect appropriate, cooperative Results - Lab Results 06/26/18 10:34 06/26/18 05:56 Most recent lab results Calcium 8.7 mg/dL (8.6-10.3) 06/26/18 05:56 Consult Discharge Plan - Plan Referrals: Bartolo Washburn MD [Primary Care Provider] -
--- NOTE | 2018-06-26 10:46 | Gastroenterology Consult Note ---
<TuckerGomez Ardon - Last Filed: 06/26/18 10:44> Date of Encounter: 06/26/18 Time of Encounter: 09:55 - Assessment and plan (1) Colitis Current Visit: Yes Status: Acute Assessment and plan: CT A/P shows colonic wall thickening and pericolonic inflammatory changes consistent with colitis involving primarily the transverse, descending and rectosigmoid colon. Check GI panel and fecal calprotectin. Plan for colonoscopy in 4-6 weeks. (2) ESRD (end stage renal disease) Current Visit: No Status: Acute Assessment and plan: Management per Nephrology. - Time Spent With Patient Total time spent is greater than 50% in coordination of care (as documented) at patient's floor/unit and/or counseling patient: GI History of Present Illness - Data of Consult Patient: known to practice within the last 3 years Consult date: 06/26/18 Requesting Physician: Bonilla Francois MD - Consult Narrative Reason for consult: Colitis History of present illness: Ms. Dan is a 67 year old female with PMHx of arthritis, CAD s/p CABG, COPD , right upper lung cancer, DM, ESRD, GERD, HLD, HTN, SD who presents with complaints of several loose/watery BMs after eating with abdominal cramping. CT A/P shows colonic wall thickening and pericolonic inflammatory changes consistent with colitis involving primarily the transverse, descending and rectosigmoid colon. She reports a BM in the ED that was bloody. She denies any melena. She was started on Cipro and Flagyl. She continues to report lower abdominal cramping and diarrhea. Procedures: EGD 07/05/2017 Dr. Domingo: Small hiatal hernia, gastritis. Colonoscopy 05/22/2014 Dr. Sparks: External hemorrhoids, few petechiae in sigmoid colon and ascending colon, benign biopsies. EGD 05/22/2014 Dr. Sparks: Chemical gastritis. NSAIDs: ASA Anticoagulation: Plavix Past Med Surg Social Fam HX - Past Medical History Medical history: arthritis, cancer, coronary artery disease, diabetes, dialysis , GERD, hyperlipidemia, hypertension, myocardial infarction, renal disease, other Additional medical history: neuropathy, insomnia Psychiatric history: anxiety, depression - Past Surgical History Surgical History: appendectomy, cholecystectomy, coronary bypass (CABG), hysterectomy, ureteral stent, other Additional surgical history: colonoscopy - egd - tubal ligation - kdney stent - Social History Smoking Status: Former smoker Smokeless Tobacco Status: No Alcohol use: none Drug use: none - Family History Mother Living Status: Hx Family Endocrine Disorder: (DM) Father Adopted: No Hx Family Cardiac Disorders: Yes ("heart troubles") Hx Family Cancer: Yes (Prostate cancer) Hx Family Endocrine Disorder: Yes (DM) Brother Hx Family Cardiac Disorders: Yes (CAD) Hx Family Cancer: Yes (lung cancer) - Gastrointestinal Gastrointestinal: Present: as per HPI - Constitutional Constitutional: as per HPI - EENT Eyes: as per HPI Ears: Present: as per HPI Nose, mouth and throat: Present: as per HPI - Cardiovascular Cardiovascular ROS: Present: as per HPI - Respiratory Respiratory IM: Present: as per HPI - Genitourinary Genitourinary: Absent: change in color, Urinary frequency - Neurological ROS Neurological GI: Present: as per HPI - Hematologic/Lymphatic Hematologic/Lymphatic pediatric: Present: as per HPI - Musculoskeletal Musculoskeletal ROS GI: Present: as per HPI - Integumentary Integumentary GI: Present: as per HPI - Psychiatric ROS Psychiatric GI: Present: as per HPI - Endocrine Endocrine IM: Present: as per HPI - Constitutional Vitals: Temp Pulse Resp BP Pulse Ox 98.2 F 72 16 132/69 94 06/26/18 06:44 06/26/18 06:44 06/26/18 06:44 06/26/18 06:44 06/26/18 06:44 General appearance: Present: cooperative, A&O X 3, no acute distress, answers questions appropriately - Head Head exam: Present: atraumatic, normocephalic - Eye Eye exam: Present: normal appearance, sclera anicteric - ENT ENT exam: Present: mucous membranes dry - Neck Neck exam general surgery: Present: normal inspection, trachea midline - Respiratory Respiratory exam: Present: decreased breath sounds, CTAB. Absent: rales, rhonchi - Cardiovascular Cardiovascular exam: Present: RRR, +S1, +S2 - GI/Abdominal GI/Abdominal exam: Present: soft, no peritoneal signs. Absent: distended, firm , guarding, tenderness - Rectal Rectal exam: Present: deferred - Extremities Exam Extremities exam: Present: warm - Neurological Exam Neurological exam: Present: no focal deficits - Psychiatric Psychiatric exam: Present: normal affect, normal mood - Skin Skin exam: Present: dry, intact, normal color, warm Results - Labs CBC & Chem 7: 06/26/18 05:56 06/26/18 05:56 Labs: Last Result Calcium 8.7 mg/dL (8.6-10.3) 06/26/18 05:56 Entire Visit Hgb 12.2 g/dL (11.5-15.4) D 06/26/18 05:56 Hct 38.2 % (35.3-44.9) 06/26/18 05:56 Total Bilirubin 0.3 mg/dL (0.3-1.0) 06/25/18 19:43 AST 29 Units/L (13-39) 06/25/18 19:43 ALT 34 Units/L (7-52) 06/25/18 19:43 Lipase 19 Units/L (11-82) 06/25/18 19:43 Consult Discharge Plan - Plan Referrals: Bartolo Washburn MD [Primary Care Provider] - <Tushar Domingo - Last Filed: 06/26/18 17:52> Date of Encounter: 06/26/18 Time of Encounter: 17:30 - Time Spent With Patient Total time spent is greater than 50% in coordination of care (as documented) at patient's floor/unit and/or counseling patient: GI History of Present Illness - Data of Consult Requesting Physician: Bonilla Francois MD - Consult Narrative History of present illness: Ms. Dan is a 67 year old female - Constitutional Vitals: Temp Pulse Resp BP Pulse Ox 99.1 F 83 16 130/66 93 06/26/18 16:00 06/26/18 16:00 06/26/18 16:00 06/26/18 16:00 06/26/18 16:00 Results - Labs CBC & Chem 7: 06/26/18 10:34 06/26/18 05:56 Labs: Last Result Calcium 8.7 mg/dL (8.6-10.3) 06/26/18 05:56 Entire Visit Hgb 10.9 g/dL (11.5-15.4) L 06/26/18 10:34 Hct 33.6 % (35.3-44.9) L 06/26/18 10:34 Total Bilirubin 0.3 mg/dL (0.3-1.0) 06/25/18 19:43 AST 29 Units/L (13-39) 06/25/18 19:43 ALT 34 Units/L (7-52) 06/25/18 19:43 Lipase 19 Units/L (11-82) 06/25/18 19:43 - Attending Attestation I have personally performed a face to face evaluation on this patient. I have reviewed and agree with the care plan. History and Exam by me shows: Patient seen. Patient with no more rectal bleeding. Patient does has tenderness in the left side of abdomen. Assessment: Patient with ischemic colitis but rule out infectious etiology. Recommendation: Continue IV antibiotics and clear liquid advance as tolerated follow GI panel studies. Colonoscopy in 6-8 weeks to make sure colitis resolved
[2018-06-26 10:52] LABS: Hematocrit 33.6 % (35.3-44.9); Hemoglobin 10.9 g/dL (11.5-15.4)
[2018-06-26] MEDS: Pantoprazole 40 MG VIAL IVP SCH ×2 (14:59→16:58)
[2018-06-26] MEDS: MetroNIDAZOLE 500 MG/100 ML 500 MG/100 ML BAG IVPB SCH ×3 (14:59→16:58)
[2018-06-26] MEDS ORDERED: DICLOFENAC SODIUM TP PRN (21:45)
[2018-06-26] MEDS ORDERED: *HR* OxyCODONE/APAP 5/325 TABLET PO PRN (21:45)
[2018-06-26] MEDS ORDERED: SUMAtriptan 6 MG/0.5 ML SQ PRN (21:45)
[2018-06-27] MEDS: MetroNIDAZOLE 500 MG/100 ML 500 MG/100 ML BAG IVPB SCH ×4 (00:51→23:48)
[2018-06-27 01:07] LABS: Basophils % 0.6 %; Eosinophils # 0.3 K/mcL (0.0-0.6); Eosinophils % 4.7 %; Hematocrit 33.8 % (35.3-44.9); Hemoglobin 11.4 g/dL (11.5-15.4); Immature Granulocytes % 0.3 % (0-4); Immature Platelets 3.7 % (1.1-6.1); Lymphocytes # 1.2 K/mcL (0.6-4.6); Lymphocytes % 17.3 %; Mean Corpuscular HGB Conc 33.7 g/dL (31.6-35.5); Mean Corpuscular Hemoglobin 32.4 pg (28.0-33.3); Mean Platelet Volume 10.2 fL (9.4-12.4); Monocytes % 13.5 %; Neutrophils # 4.5 K/mcL (1.6-8.9); Platelet Count 137 K/mcL (140-400); Red Blood Count 3.52 M/mcL (3.82-4.97); Red Cell Distribution Width 13.6 % (11.5-14.5); Segmented Neutrophils % 63.6 %
[2018-06-27 01:29] LABS: Albumin/Globulin Ratio 1.1 (1.1-2.2); Bilirubin,Total 0.5 mg/dL (0.3-1.0); Calcium 8.2 mg/dL (8.6-10.3); Globulin 2.7 g/dL (2.4-3.5); Potassium 4.2 mEq/L (3.5-5.1); Total Protein 5.7 g/dL (6.4-8.9)
[2018-06-27] MEDS: Ondansetron ODT 4 MG TAB.RAPDIS PO PRN (06:07)
[2018-06-27] MEDS: OXYCODONE Oral CONC 10 MG/0.5 ML ORAL.SYG SL PRN ×2 (06:07→23:48)
[2018-06-27] MEDS: Sucralfate 1 GM TABLET PO SCH ×2 (06:08→17:33)
[2018-06-27] MEDS: Metoprolol XL (24 HR) Succ 25 MG TAB.ER.24H PO SCH (08:37)
[2018-06-27] MEDS: Aspirin 81 MG TAB.CHEW PO SCH (08:37)
[2018-06-27] MEDS: Pantoprazole 40 MG VIAL IVP SCH (08:37)
[2018-06-27] MEDS: Lactobacillus 1 EACH CAP.SPRINK PO SCH (08:37)
[2018-06-27] MEDS: Insulin LISPRO 300 UNITS/3 ML VIAL SQ SCH ×4 (08:38→22:06)
[2018-06-27] MEDS ORDERED: NON-FORMULARY MEDICATION 1 EACH EACH (Pantoprazole Sodium [Protonix] 40 MG) PO SCH (09:00)
--- NOTE | 2018-06-27 10:17 | Nephrology Progress Note ---
Date of Encounter: 06/27/18 Time of Encounter: 10:15 - Assessment and Plan (1) ESRD (end stage renal disease) Current Visit: Yes Status: Acute Current regimen is MWF at [facility]. HD completed yesterday without complication. Avoid nephrotoxins and renal dose all medications. Renal diet, when able to eat. (2) Abdominal pain Current Visit: Yes Status: Acute Per primary. Qualifiers: Abdominal location: generalized Qualified Code(s): R10.84 - Generalized abdominal pain (3) Colitis Current Visit: Yes Status: Acute Per primary. (4) Nausea Current Visit: Yes Status: Acute Continue with antiemetics. Subjective Principal diagnosis: diarrhea, abdominal pain Interval history: Pt seen and examined, doing much better this am. Reports diarrhea has subsided. Objective - Vital Signs Vital signs: Vital Signs Temp Pulse Resp BP Pulse Ox 06/27/18 08:10 97.5 F L 77 16 188/67 91 06/27/18 04:32 98 F 85 16 165/76 93 06/27/18 00:10 98.5 F 73 15 134/59 94 06/26/18 19:41 98.2 F 75 15 129/55 94 06/26/18 16:00 99.1 F 83 16 130/66 93 06/26/18 14:10 97.7 F 18 171/89 06/26/18 13:50 113/67 06/26/18 13:35 112/69 06/26/18 13:20 119/70 06/26/18 13:05 121/67 06/26/18 12:50 128/68 06/26/18 12:35 124/63 06/26/18 12:20 131/70 06/26/18 12:05 137/77 06/26/18 11:50 140/65 06/26/18 11:35 147/78 06/26/18 11:20 146/74 06/26/18 11:05 140/69 06/26/18 10:50 129/59 06/26/18 10:35 128/68 06/26/18 10:20 98.0 F 16 128/100 Intake and Output 06/26/18 06/27/18 06/27/18 23:59 07:59 15:59 Intake Total 100 / 100 300 / 300 Balance 100 / 100 300 / 300 Intake: IV Fluids 100 / 100 300 / 300 Cipro Premix 400 MG/200 ML 400 200 / 200 mg In 200 ml @ 200 mls/hr IVPB Q24H [facility] Rx#:[id number] Flagyl Premix 500 MG/100 ML 500 100 / 100 100 / 100 mg In 100 ml @ 100 mls/hr IVPB Q8H [facility] Rx#:[id number] Other: # Voids 1 Weight 74.117 kg Blood Glucose* 278 131 Patient Weight 06/27/18 23:59 Weight 74.117 kg - General Appearance General appearance: Present: well-developed, well-nourished EENT: Present: ATNC, hearing intact, vision intact Neck: Present: supple Respiratory: Present: clear Cardiology: Present: no edema, normal S1, normal S2 Dialysis Vascular Access: Arteriovenous Fistula thrill: Yes bruit: Yes Gastrointestinal: Present: normoactive bowel sounds, no tenderness, no guarding Integumentary: Present: no rash, warm and dry Neurologic: Present: alert and oriented x3 Psychiatric: Present: mood/affect appropriate, cooperative - Lab 06/27/18 00:45 06/27/18 00:45 Most recent lab results Calcium 8.2 mg/dL (8.6-10.3) L 06/27/18 00:45 - VTE Documentation of Mechanical Device: Intermittent pneumatic compression device Consult Discharge Plan - Plan Referrals: Bartolo Washburn MD [Primary Care Provider] -
--- NOTE | 2018-06-27 18:05 | Internal Med Progress Note ---
Hospitalist Progress Note - Encounter Date of Encounter: 06/27/18 Time of Encounter: 11:00 - Subjective Interval History: Patient no longer with abdominal pain and tolerating by mouth Awaiting stool studies to rule out lower GI bleed due to patient's acute blood loss anemia - Exam Vitals: Temp Pulse Resp BP Pulse Ox 98.2 F 72 16 135/59 94 06/27/18 14:59 06/27/18 14:59 06/27/18 14:59 06/27/18 14:59 06/27/18 14:59 Exam: Gen.: Nonacute distress, alert and oriented 3 ENT: Mucosal membranes moist Respiratory: Lungs are clear to auscultation bilaterally without any wheezing rhonchi or rales Cardiovascular: Normal S1 and S2 regular rate rhythm no murmurs rubs or gallops Abdomen: Soft, nontender and nondistended with positive bowel sounds Extremities: No lower extremity edema Skin: Normal color - Assessment and Plan (1) Colitis Current Visit: Yes Status: Acute Assessment and Plan: Patient presented with abdominal pain and CT of the abdomen/pelvis showed colonic wall thickening and pericolonic inflammatory changes consistent with colitis involving primarily the transverse, descending and rectosigmoid colon. GI was consulted with recommendations to check GI panel and fecal calprotectin which are pending Recommendations for symptom to have a endoscopy in 4-6 weeks. (2) CAD (coronary artery disease) of artery bypass graft Current Visit: No Status: Chronic Assessment and Plan: Stable; continue aspirin, Plavix and beta danette (3) Diabetes mellitus Current Visit: No Status: Chronic Assessment and Plan: Controlled; continue slight scale insulin (4) ESRD needing dialysis Current Visit: No Status: Chronic Assessment and Plan: Nephrology consulted with recommendations for continuing hemodialysis Tuesday and Tuesday (5) GERD (gastroesophageal reflux disease) Current Visit: No Status: Chronic Assessment and Plan: Continue PPI - Time Spent with Patient Total time spent is greater than 50% in coordination of care (as documented) at patient's floor/unit and/or counseling patient: Internal Medicine: Result - Labs CBC & Chem 7: 06/27/18 00:45 06/27/18 00:45 Labs: Short CBC 06/27/18 Range/Units 00:45 WBC 7.0 (4.3-11.1) K/mcL Hgb 11.4 L (11.5-15.4) g/dL Hct 33.8 L (35.3-44.9) % Plt Count 137 L (140-400) K/mcL Neutrophils # 4.5 (1.6-8.9) K/mcL BMP 06/27/18 00:45 Sodium 135 L Potassium 4.2 Chloride 97 L Carbon Dioxide 32 H BUN 30 H Creatinine 2.54 H Glucose 115 H Calcium 8.2 L Liver Function 06/27/18 Range/Units 00:45 Total Bilirubin 0.5 (0.3-1.0) mg/dL AST 21 (13-39) Units/L ALT 22 (7-52) Units/L Alkaline Phosphatase 124 H (34-104) Units/L Albumin 3.0 L (3.5-5.7) g/dL - VTE Documentation of Mechanical Device: Intermittent pneumatic compression device Consult Discharge Plan - Plan Referrals: Bartolo Washburn MD [Primary Care Provider] - (2) CAD (coronary artery disease) of artery bypass graft Qualifiers: [place] vs. transplanted heart: [place] heart Associated angina: without angina Qualified Code(s): I25.810 - Atherosclerosis of coronary artery bypass graft(s) without angina pectoris (3) Diabetes mellitus Qualifiers: Diabetes mellitus type: type 2 Diabetes mellitus shelter insulin use: with ocean transportation intermediary use Diabetes mellitus complication status: with kidney complications Diabetes mellitus complication detail: with chronic kidney disease Chronic kidney disease stage: on chronic dialysis Qualified Code(s): E11.22 - Type 2 diabetes mellitus with diabetic chronic kidney disease; N18.6 - End stage renal disease; Z79.4 - keno terminal operator (current) use of insulin; Z99.2 - Dependence on renal dialysis (5) GERD (gastroesophageal reflux disease) Qualifiers: Esophagitis presence: esophagitis presence not specified Qualified Code(s): K21.9 - Gastro-esophageal reflux disease without esophagitis
[2018-06-28 06:42] LABS: Basophils % 0.5 %; Eosinophils # 0.3 K/mcL (0.0-0.6); Eosinophils % 5.1 %; Hematocrit 36.5 % (35.3-44.9); Hemoglobin 11.8 g/dL (11.5-15.4); Immature Granulocytes % 0.2 % (0-4); Lymphocytes # 1.5 K/mcL (0.6-4.6); Lymphocytes % 24.7 %; Mean Corpuscular HGB Conc 32.3 g/dL (31.6-35.5); Mean Corpuscular Hemoglobin 31.6 pg (28.0-33.3); Mean Corpuscular Volume 97.6 fL (83.0-100.0); Mean Platelet Volume 10.3 fL (9.4-12.4); Monocytes # 0.8 K/mcL (0.0-1.3); Monocytes % 13.6 %; Neutrophils # 3.3 K/mcL (1.6-8.9); Platelet Count 130 K/mcL (140-400); Red Blood Count 3.74 M/mcL (3.82-4.97); Red Cell Distribution Width 13.2 % (11.5-14.5); Segmented Neutrophils % 55.9 %
[2018-06-28 06:59] LABS: Calcium 8.4 mg/dL (8.6-10.3); Potassium 4.2 mEq/L (3.5-5.1)
[2018-06-28] MEDS ORDERED: 0.9 % Sodium Chloride 1,000 ML ONE (07:11)
[2018-06-28] MEDS ORDERED: 0.9 % Sodium Chloride 250 ML IVC PRN (07:42)
--- NOTE | 2018-06-28 07:47 | Electrocardiograph Report ---
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
[2018-06-28] MEDS: Lactobacillus 1 EACH CAP.SPRINK PO SCH (09:16)
[2018-06-28] MEDS: Metoprolol XL (24 HR) Succ 25 MG TAB.ER.24H PO SCH (09:16)
[2018-06-28] MEDS: Sucralfate 1 GM TABLET PO SCH (09:17)
[2018-06-28] MEDS: Insulin LISPRO 300 UNITS/3 ML VIAL SQ SCH ×2 (09:17→14:10)
[2018-06-28] MEDS: Aspirin 81 MG TAB.CHEW PO SCH (09:17)
[2018-06-28] MEDS: MetroNIDAZOLE 500 MG/100 ML 500 MG/100 ML BAG IVPB SCH (09:18)
--- NOTE | 2018-06-28 11:17 | Nephrology Progress Note ---
Date of Encounter: 06/28/18 Time of Encounter: 09:48 - Assessment and Plan (1) ESRD (end stage renal disease) Current Visit: Yes Status: Chronic HD today (Tuesday) for clearance and for a target weight of 73.5kg I reviewed her labs, med lists, vitals, imaging and progress notes, including the [facility] run sheets including her routine outpt HD orders. (2) Colitis Current Visit: Yes Status: Acute (3) Abdominal pain Current Visit: Yes Status: Acute Qualifiers: Abdominal location: generalized Qualified Code(s): R10.84 - Generalized abdominal pain (4) Nausea Current Visit: Yes Status: Acute Subjective Principal diagnosis: diarrhea, abdominal pain Interval history: Pt was s/e earlier today. She did not affirm N/V/D and said that her abd pain has largely improved. Objective - Vital Signs Vital signs: Vital Signs Temp Pulse Resp BP Pulse Ox 06/28/18 07:34 98.2 F 66 18 156/65 91 06/28/18 03:41 97.9 F 65 15 131/66 92 06/27/18 23:33 98.1 F 76 16 142/54 92 06/27/18 18:42 98.8 F 66 15 149/62 93 06/27/18 14:59 98.2 F 72 16 135/59 94 06/27/18 12:20 98.0 F 70 16 166/68 94 Intake and Output 06/27/18 06/28/18 06/28/18 23:59 07:59 15:59 Intake Total 580 / 580 Balance 580 / 580 Intake: IV Fluids 100 / 100 Flagyl Premix 500 MG/100 ML 500 100 / 100 mg In 100 ml @ 100 mls/hr IVPB Q8H [facility] Rx#:[id number] Oral 480 / 480 Other: Meal Lunch Percent of Meal Consumed 100% # Voids 1 Weight 74.752 kg Blood Glucose* 103 125 - General Appearance General appearance: Present: well-developed, well-nourished, appears started age EENT: Present: ATNC, PERRL, mucous membranes moist Neck: Present: supple Respiratory: Present: clear Cardiology: Present: no edema, regular rate, normal S1, normal S2 Dialysis Vascular Access: Arteriovenous Fistula (RUE AVF) thrill: Yes bruit: Yes Integumentary: Present: warm and dry, ecchymotic Neurologic: Present: no focal deficit, no asterixis, alert and oriented x3 Musculoskeletal: Present: no erythema, no cyanosis Psychiatric: Present: mood/affect appropriate, cooperative - Lab 06/28/18 06:15 06/28/18 06:15 Most recent lab results Calcium 8.4 mg/dL (8.6-10.3) L 06/28/18 06:15 - VTE Documentation of Mechanical Device: Intermittent pneumatic compression device Consult Discharge Plan - Plan Instructions: Ulcerative Colitis (DC) Referrals: Bartolo Washburn MD [Primary Care Provider] - 07/06/18 1:15 pm (Please follow up as schedule..) Tushar Domingo MD [Partnered Physician] - (web rquested 06/28/2018) Prescriptions: Ciprofloxacin [Cipro] 500 mg PO Q24H 10 Days #10 tablet metroNIDAZOLE [Flagyl] 500 mg PO TID 10 Days #30 tablet
--- NOTE | 2018-06-28 13:38 | Discharge Summary ---
Orders not resulted at time of discharge: Pending orders 06/26/18 10:43 Calprotectin, Fecal Routine Date of Encounter: 06/28/18 Time of Encounter: 11:00 - Discharge Diagnosis (1) Colitis Priority: Secondary Status: Acute (2) CAD (coronary artery disease) of artery bypass graft Priority: Secondary Status: Chronic Qualifiers: [place] vs. transplanted heart: [place] heart Associated angina: without angina Qualified Code(s): I25.810 - Atherosclerosis of coronary artery bypass graft(s) without angina pectoris (3) Diabetes mellitus Priority: Secondary Status: Chronic Qualifiers: Diabetes mellitus type: type 2 Diabetes mellitus [place] insulin use: with speck dyer use Diabetes mellitus complication status: with kidney complications Diabetes mellitus complication detail: with chronic kidney disease Chronic kidney disease stage: on chronic dialysis Qualified Code(s) : E11.22 - Type 2 diabetes mellitus with diabetic chronic kidney disease; N18.6 - End stage renal disease; Z79.4 - [facility] (current) use of insulin; Z99.2 - Dependence on renal dialysis (4) ESRD needing dialysis Priority: Primary Status: Chronic (5) GERD (gastroesophageal reflux disease) Priority: Primary Status: Chronic Qualifiers: Esophagitis presence: esophagitis presence not specified Qualified Code(s) : K21.9 - Gastro-esophageal reflux disease without esophagitis Hospital course: Patient is a 67-year-old female with past medical history significant for coronary artery disease, diabetes, dialysis, GERD, hyperlipidemia, hypertension , myocardial infarction, renal disease and appreciate a prolonged cancer with recent radiation treatment who presents to the ER on 06/25/18 due to multiple bowel movements with abdominal cramping. In the ER abdominal pelvic CT showed pericolonic inflammation changes consistent with colitis involving primarily the transverse, descending and rectosigmoid colon. She was admitted for further management of her colitis. During patients hospital stay her abdominal symptoms resolved with treatment of IV Cipro and IV Flagyl and patient was able to tolerate by mouth. Patient was noted to have acute on chronic anemia which was stable; stool studies were ordered by GI which are still pending. Patient will be discharged to follow-up with GI as an outpatient for colonoscopy in 4-6 weeks. Patient will continue 10 day course of Cipro/Flagyl. - Time Spent with Patient Total time spent providing and/or coordinating discharge services: Less than 30 minutes - Discharge Medications Prescriptions: Ciprofloxacin [Cipro] 500 mg PO Q24H 10 Days #10 tablet metroNIDAZOLE [Flagyl] 500 mg PO TID 10 Days #30 tablet Home Medications: Folic Acid 1 mg PO DAILY 07/10/15 [History] Levothyroxine [Synthroid] 50 mcg PO QAM 07/10/15 [History] Pantoprazole Sodium [Protonix] 40 mg PO BID 07/10/15 [History] Solifenacin Succinate [Vesicare] 10 mg PO DAILY 07/10/15 [History] Aspirin 81 mg PO DAILY #30 tab.chew 02/18/16 [Rx] Metoprolol XL (24 HR) Succ [Toprol Xl] 12.5 mg PO DAILY #30 tab.er.24h 02/18/16 [Rx] Docusate [Colace] 100 mg PO BID 10/14/16 [History] Albuterol Sulfate [Proair Hfa] 2 puff IH Q4H PRN 03/17/17 [History] Atorvastatin [Lipitor] 40 mg PO HS 03/17/17 [History] Clopidogrel [Plavix] 75 mg PO DAILY 05/09/17 [History] Ondansetron ODT [Zofran ODT] 4 mg PO Q8H PRN 05/09/17 [History] Sucralfate [Carafate] 1 gm PO 0730,1630 05/09/17 [History] Diclofenac Sodium 1 appl TP DAILY PRN 03/01/18 [History] Folic Acid/Vit Bcomp,C [Renal-Elizabeth Tablet] 0.8 mg PO DAILY 03/01/18 [History] Furosemide [Lasix] 20 mg PO DAILY 03/01/18 [History] Amitriptyline [Elavil] 25 mg PO HS 03/26/18 [History] Cyclobenzaprine [Flexeril] 10 mg PO QAM 03/26/18 [History] DULoxetine [Cymbalta] 30 mg PO DAILY 03/26/18 [History] Ergocalciferol (VITAMIN D2) [Drisdol] 50,000 unit PO MO 03/26/18 [History] Insulin ASPART [NovoLOG] 10 unit SQ BID 03/26/18 [History] Insulin DETEMIR [Levemir] 12 - 14 unit SQ BID 03/26/18 [History] Tamsulosin [Flomax] 0.4 mg PO DAILY 03/26/18 [History] Zolpidem [Ambien] 5 mg PO HS 03/26/18 [History] OxyCODONE/APAP 5/325 [Percocet 5/325 MG] 1 tab PO TID PRN 3 Days #9 tablet 03/30 [Rx] Lactobacillus Combination No.8 [Adult Probiotic] 1 cap PO DAILY 05/04/18 [ History] Pramipexole Di-HCl [Pramipexole Dihydrochloride] 0.125 mg PO HS 05/04/18 [ History] Promethazine [Phenergan] 25 mg PO TID PRN 05/04/18 [History] Psyllium Husk [Daily Fiber] 0.52 gm PO DAILY 05/04/18 [History] SUMAtriptan Succinate [Imitrex] 6 mg SQ BID PRN 05/04/18 [History] Lisinopril [Zestril] 10 mg PO DAILY 06/26/18 [History] Ciprofloxacin [Cipro] 500 mg PO Q24H 10 Days #10 tablet 06/28/18 [Rx] metroNIDAZOLE [Flagyl] 500 mg PO TID 10 Days #30 tablet 06/28/18 [Rx] Allergies/Adverse Reactions: 3 Allergy/AdvReac Type Severity Reaction Status Date / Time adhesive tape Allergy Redness of Verified 06/25/18 19:04 Skin latex Allergy Swelling Verified 06/25/18 19:04 of Lip/Tongue/Throat Sulfa (Sulfonamide Allergy Rash Verified 06/25/18 19:04 Antibiotics) Date of admission: 06/25/18 21:37 Primary care physician: Bartolo Washburn MD Consults: 06/26/18 02:24 Consult to Nephrology [CONS] Routine Consulting Provider: Kidney Julianne/FLORENTIN/KIERRA/PEACE Reason for Consult: Patient on dialysis, MWF Call Completed: No 06/26/18 08:15 Consult to Gastroenterology [CONS] Routine Consulting Provider: Gastroenterology Julianne Reason for Consult: colitis Call Completed: No 06/26/18 09:00 Consult to Dialysis [CONS] ONCE 06/28/18 07:45 Consult to Dialysis [CONS] ONCE - Constitutional Vitals: Temp Pulse Resp BP Pulse Ox 97.7 F 66 18 153/62 91 06/28/18 10:30 06/28/18 07:34 06/28/18 10:30 06/28/18 11:30 06/28/18 07:34 General appearance: Present: cooperative, A&O X 3, pleasant, no acute distress, answers questions appropriately Exam: As below - Patient Status Disposition: Home, Self-Care Condition: Fair - Discharge Instructions Instructions: Ulcerative Colitis (DC) Follow Up With: Bartolo Washburn MD [Primary Care Provider] - 07/06/18 1:15 pm (Please follow up as schedule..) Tushar Domingo MD [Partnered Physician] - (web rquested 06/28/2018) - VTE Documentation of Mechanical Device: Intermittent pneumatic compression device
[2018-06-28] MEDS: Ondansetron ODT 4 MG TAB.RAPDIS PO PRN (14:09)
[2018-06-28] MEDS ORDERED: metroNIDAZOLE 500 MG TABLET PO SCH (15:00)
[2018-06-28 16:04] VITALS: BP 157/40
== END 2018-06-28 15:57 | disposition home or self-care (01) ==
LOC: EMEROOARM 18:57 → 2ANU 18:57 → SUATTDRO 21:37 → 2ANU 21:55
PROVIDERS: ADMIT Family Medicine; ATTEND Hospitalist

== ENCOUNTER 2018-07-24 05:37 | Inpatient (IN) ==
[2018-07-24] MEDS ORDERED: Ondansetron 4 MG/2 ML VIAL IVP ONE (05:46)
[2018-07-24] MEDS ORDERED: 0.9 % Sodium Chloride 1,000 ML IVC ONE (05:46)
[2018-07-24] MEDS ORDERED: *HR* HYDROmorphone (PF) 1 MG/ML SYRINGE IVP ONE (05:46)
--- NOTE | 2018-07-24 05:57 | Emergency Department Note ---
Disposition Clinical Impression: Abdominal pain Qualifiers: Abdominal location: generalized Qualified Code(s): R10.84 - Generalized abdominal pain Disposition: Still a Patient Condition: Fair Forms: ED Satisfaction Letter, Work/School Release Abdominal Pain HPI - General Chief Complaint: ED Abdominal Pain Stated Complaint: abd pain Time Seen by Provider: 07/24/18 05:41 Source: patient, EMS Mode of arrival: EMS Limitations: no limitations Nursing Notes Reviewed: Yes Vital Signs Reviewed: Yes - History of Present Illness HPI Narrative: This is a 67-year-old female with history of ACS and recent discharge from a 2 week stay for colitis at [facility] presents to the emergency department with abdominal pain. Patient states she is tender all over her abdomen and is scared that she is going to have the same colitis the center to [facility] for 2 weeks where she had be on antibiotics. Patient states that she was discharged approximately 2 days ago. She says she started and still get tender in the abdomen and was worried is going to continue again. She at [facility] and have a rectal tube as well as on many antibiotics. She said at first she was constipated and had diarrhea afterwards. Patient states she has had no fevers. She says she is not constipated this time having normal bowel movements but she is scared that the pain is going to increase to where she is and have the same colitis that she did last time. Patient states she wants is get some antibiotics and return. Patient otherwise has no complaint this time Pain Scale: 7 - Related Data Home Medications Medication Instructions Recorded Confirmed Folic Acid 1 mg PO DAILY 07/10/15 06/26/18 Levothyroxine [Synthroid] 50 mcg PO QAM 07/10/15 06/26/18 Pantoprazole Sodium [Protonix] 40 mg PO BID 07/10/15 06/26/18 Solifenacin Succinate [Vesicare] 10 mg PO DAILY 07/10/15 06/26/18 Docusate [Colace] 100 mg PO BID 10/14/16 06/26/18 Albuterol Sulfate [Proair Hfa] 2 puff IH Q4H PRN 03/17/17 06/26/18 Atorvastatin [Lipitor] 40 mg PO HS 03/17/17 06/26/18 Clopidogrel [Plavix] 75 mg PO DAILY 05/09/17 06/26/18 Ondansetron ODT [Zofran ODT] 4 mg PO Q8H PRN 05/09/17 06/26/18 Sucralfate [Carafate] 1 gm PO 0730,1630 05/09/17 06/26/18 Diclofenac Sodium 1 appl TP DAILY PRN 03/01/18 06/26/18 Folic Acid/Vit Bcomp,C [Renal-Elizabeth 0.8 mg PO DAILY 03/01/18 06/26/18 Tablet] Furosemide [Lasix] 20 mg PO DAILY 03/01/18 06/26/18 Amitriptyline [Elavil] 25 mg PO HS 03/26/18 06/26/18 Cyclobenzaprine [Flexeril] 10 mg PO QAM 03/26/18 06/26/18 DULoxetine [Cymbalta] 30 mg PO DAILY 03/26/18 06/26/18 Ergocalciferol (VITAMIN D2) 50,000 unit PO MO 03/26/18 06/26/18 [Drisdol] Insulin ASPART [NovoLOG] 10 unit SQ BID 03/26/18 06/26/18 Insulin DETEMIR [Levemir] 12 - 14 unit SQ BID 03/26/18 06/26/18 Tamsulosin [Flomax] 0.4 mg PO DAILY 03/26/18 06/26/18 Zolpidem [Ambien] 5 mg PO HS 03/26/18 06/26/18 Lactobacillus Combination No.8 1 cap PO DAILY 05/04/18 06/26/18 [Adult Probiotic] Pramipexole Di-HCl [Pramipexole 0.125 mg PO HS 05/04/18 06/26/18 Dihydrochloride] Promethazine [Phenergan] 25 mg PO TID PRN 05/04/18 06/26/18 Psyllium Husk [Daily Fiber] 0.52 gm PO DAILY 05/04/18 06/26/18 SUMAtriptan Succinate [Imitrex] 6 mg SQ BID PRN 05/04/18 06/26/18 Lisinopril [Zestril] 10 mg PO DAILY 06/26/18 06/26/18 Previous Rx's Medication Instructions Recorded Aspirin 81 mg PO DAILY #30 tab.chew 02/18/16 Metoprolol XL (24 HR) Succ [Toprol 12.5 mg PO DAILY #30 tab.er.24h 02/18/16 Xl] OxyCODONE/APAP 5/325 [Percocet 1 tab PO TID PRN 3 Days #9 tablet 03/30/18 5/325 MG] Ciprofloxacin [Cipro] 500 mg PO Q24H 10 Days #10 tablet 06/28/18 metroNIDAZOLE [Flagyl] 500 mg PO TID 10 Days #30 tablet 06/28/18 Allergies Allergy/AdvReac Type Severity Reaction Status Date / Time adhesive tape Allergy Redness of Verified 07/15/18 11:57 Skin latex Allergy Swelling Verified 07/15/18 11:57 of Lip/Tongue/Throat Sulfa (Sulfonamide Allergy Rash Verified 07/15/18 11:57 Antibiotics) All systems ED: reviewed and negative except as stated. Review of Systems: As Per HPI Constitutional: Denies: fever, chills, weakness, weight change Eyes: Denies: eye pain, eye discharge, vision change ENT ED: Denies: ear pain, throat pain, dental pain, hearing loss, epistaxis, congestion, dysphagia Cardiovascular: Denies: chest pain, palpitations, dyspnea on exertion, edema, syncope Respiratory: Denies: cough, dyspnea, wheezes, hemoptysis, stridor Gastrointestinal: Reports: abdominal pain. Denies: nausea, vomiting, diarrhea, constipation, hematemesis, melena, hematochezia Genitourinary: Denies: dysuria, frequency, hematuria, discharge Musculoskeletal: Denies: back pain, neck pain, arthralgia, myalgia Integumentary: Denies: rash, abrasion, lesions Neurological: Denies: headache, weakness, numbness, paresthesias, confusion, abnormal gait, vertigo Psychiatric: Denies: anxiety, depression, suicidal thoughts, homicidal thoughts , auditory hallucinations, visual hallucinations Endocrine: Denies: fatigue Hematological/Lymphatic: Denies: easy bleeding, easy bruising Allergic/Immunologic: Denies: facial swelling, urticaria Abdominal Pain PMH - Past Medical History Medical history: Reports: arthritis, cancer, coronary artery disease, diabetes, dialysis, GERD, hyperlipidemia, hypertension, myocardial infarction, renal disease, other Female Surgical History: Reports: coronary bypass (CABG) SECURITY CONTROLS ASSESSOR history: Reports: no SECURITY CONTROLS ASSESSOR history Psychiatric history: Reports: anxiety, depression - Social History Smoking status: Former smoker Alcohol use: Reports: none Drug use: Reports: none Physical Exam - General Limitations: no limitations General appearance: alert, in no apparent distress - Head Head exam: atraumatic, normocephalic, normal inspection - Eye Eye exam: Present: normal appearance, PERRL, EOMI - ENT ENT exam: normal exam, normal oropharynx, mucous membranes moist - Neck Neck exam: Present: normal inspection, full ROM, trachea midline - Chest Chest inspection: Present: normal inspection, symmetric chest wall rise - Respiratory Respiratory exam: Present: normal lung sounds bilaterally - Cardiovascular Cardiovascular exam: Present: regular rate, normal rhythm, normal heart sounds - Abdominal Exam Abdominal exam: Present: soft, Non-Tender, tenderness (Generalized over the entire abdomen.), normal bowel sounds. Absent: distention, guarding, rebound, rigidity - Extremities Exam Extremities exam: Present: normal inspection, full ROM. Absent: tenderness, pedal edema - Back Exam Back exam: Present: normal inspection, full ROM. Absent: tenderness, CVA tenderness (R), CVA tenderness (L) - Neurological Exam Neurological exam: Present: alert, oriented X3 - Skin Skin exam: Present: warm, dry, intact, normal color Course Course Narrative: We will do basic abdominal labs including CBC, BMP, lipase, lactate as well as urinalysis. We will get CT abdomen and pelvis without contrast. We will give patient IV fluids Zofran and Dilaudid for pain control. Vital Signs Temperature 100.6 F H 07/24/18 05:42 Pulse Rate 80 07/24/18 05:42 Respiratory Rate 20 07/24/18 05:42 Blood Pressure 156/60 07/24/18 05:42 O2 Sat by Pulse Oximetry 96 07/24/18 05:42 Temperature 100.6 F H 07/24/18 05:42 Pulse Rate 80 07/24/18 05:42 Respiratory Rate 20 07/24/18 05:42 Blood Pressure 156/60 07/24/18 05:42 O2 Sat by Pulse Oximetry 96 07/24/18 05:42 Oxygen Delivery Oxygen Delivery Room Air Abdominal Pain - MDM Narrative Medical decision making narrative: Patient did present here with abdominal pain. We are doing a very large workup due to patient's history of having colitis. At this time the labs and CT have not been done are came back. Patient was given IV fluids, Dilaudid as well as Zofran. Patient will be signed out to the day team to follow-up on CT scan, labs and for disposition. This is explained to the patient the patient is stable at this time. - Medical Records Medical records reviewed: Yes I reviewed the patient's medical records.
--- NOTE | 2018-07-24 06:09 | Emergency Department Note ---
Disposition Clinical Impression: Abdominal pain Qualifiers: Abdominal location: generalized Qualified Code(s): R10.84 - Generalized abdominal pain Disposition: Still a Patient Forms: ED Satisfaction Letter, Work/School Release General Adult HPI - General Chief complaint: ED Abdominal Pain Stated complaint: abd pain Time Seen by Provider: 07/24/18 05:41 Source: patient, EMS Mode of arrival: EMS Limitations: no limitations - History of Present Illness HPI Narrative: ED attending attestation note: I examined this patient and my medical decision-making was reviewed with the emergency medicine resident Casey Diehl. I agree with the documented findings , disposition and treatment plan as described except to the extent set forth below. Briefly: 67-year-old female recently discharged from the [facility] for C. difficile just got off antibiotics 2 days ago complains of some stomach discomfort and feeling poorly. No chest pain shortness breath fevers or chills or abdomen surgically benign and moist oral mucosa. Patient will get IV fluids anti-medics and screening labs. An abdominal pelvic CT. It is anticipated that we will have to sign out the patient for the oncoming ED attending team. Patient comfortable currently disposition pending Pain Scale: 7 - Related Data Home Medications Medication Instructions Recorded Confirmed Folic Acid 1 mg PO DAILY 07/10/15 06/26/18 Levothyroxine [Synthroid] 50 mcg PO QAM 07/10/15 06/26/18 Pantoprazole Sodium [Protonix] 40 mg PO BID 07/10/15 06/26/18 Solifenacin Succinate [Vesicare] 10 mg PO DAILY 07/10/15 06/26/18 Docusate [Colace] 100 mg PO BID 10/14/16 06/26/18 Albuterol Sulfate [Proair Hfa] 2 puff IH Q4H PRN 03/17/17 06/26/18 Atorvastatin [Lipitor] 40 mg PO HS 03/17/17 06/26/18 Clopidogrel [Plavix] 75 mg PO DAILY 05/09/17 06/26/18 Ondansetron ODT [Zofran ODT] 4 mg PO Q8H PRN 05/09/17 06/26/18 Sucralfate [Carafate] 1 gm PO 0730,1630 05/09/17 06/26/18 Diclofenac Sodium 1 appl TP DAILY PRN 03/01/18 06/26/18 Folic Acid/Vit Bcomp,C [Renal-Elizabeth 0.8 mg PO DAILY 03/01/18 06/26/18 Tablet] Furosemide [Lasix] 20 mg PO DAILY 03/01/18 06/26/18 Amitriptyline [Elavil] 25 mg PO HS 03/26/18 06/26/18 Cyclobenzaprine [Flexeril] 10 mg PO QAM 03/26/18 06/26/18 DULoxetine [Cymbalta] 30 mg PO DAILY 03/26/18 06/26/18 Ergocalciferol (VITAMIN D2) 50,000 unit PO MO 03/26/18 06/26/18 [Drisdol] Insulin ASPART [NovoLOG] 10 unit SQ BID 03/26/18 06/26/18 Insulin DETEMIR [Levemir] 12 - 14 unit SQ BID 03/26/18 06/26/18 Tamsulosin [Flomax] 0.4 mg PO DAILY 03/26/18 06/26/18 Zolpidem [Ambien] 5 mg PO HS 03/26/18 06/26/18 Lactobacillus Combination No.8 1 cap PO DAILY 05/04/18 06/26/18 [Adult Probiotic] Pramipexole Di-HCl [Pramipexole 0.125 mg PO HS 05/04/18 06/26/18 Dihydrochloride] Promethazine [Phenergan] 25 mg PO TID PRN 05/04/18 06/26/18 Psyllium Husk [Daily Fiber] 0.52 gm PO DAILY 05/04/18 06/26/18 SUMAtriptan Succinate [Imitrex] 6 mg SQ BID PRN 05/04/18 06/26/18 Lisinopril [Zestril] 10 mg PO DAILY 06/26/18 06/26/18 Previous Rx's Medication Instructions Recorded Aspirin 81 mg PO DAILY #30 tab.chew 02/18/16 Metoprolol XL (24 HR) Succ [Toprol 12.5 mg PO DAILY #30 tab.er.24h 02/18/16 Xl] OxyCODONE/APAP 5/325 [Percocet 1 tab PO TID PRN 3 Days #9 tablet 03/30/18 5/325 MG] Ciprofloxacin [Cipro] 500 mg PO Q24H 10 Days #10 tablet 06/28/18 metroNIDAZOLE [Flagyl] 500 mg PO TID 10 Days #30 tablet 06/28/18 Allergies Allergy/AdvReac Type Severity Reaction Status Date / Time adhesive tape Allergy Redness of Verified 07/15/18 11:57 Skin latex Allergy Swelling Verified 07/15/18 11:57 of Lip/Tongue/Throat Sulfa (Sulfonamide Allergy Rash Verified 07/15/18 11:57 Antibiotics) Constitutional: Denies: fever, chills, weakness, weight change Eyes: Denies: eye pain, eye discharge, vision change ENT ED: Denies: ear pain, throat pain, dental pain, hearing loss, epistaxis, congestion, dysphagia Cardiovascular: Denies: chest pain, palpitations, dyspnea on exertion, edema, syncope Respiratory: Denies: cough, dyspnea, wheezes, hemoptysis, stridor Gastrointestinal: Reports: abdominal pain. Denies: nausea, vomiting, diarrhea, constipation, hematemesis, melena, hematochezia Genitourinary: Denies: dysuria, frequency, hematuria, discharge Musculoskeletal: Denies: back pain, neck pain, arthralgia, myalgia Integumentary: Denies: rash, abrasion, lesions Neurological: Denies: headache, weakness, numbness, paresthesias, confusion, abnormal gait, vertigo Psychiatric: Denies: anxiety, depression, suicidal thoughts, homicidal thoughts , auditory hallucinations, visual hallucinations Endocrine: Denies: fatigue Hematological/Lymphatic: Denies: easy bleeding, easy bruising Allergic/Immunologic: Denies: facial swelling, urticaria Past Medical History - Past Medical History Medical history: Reports: arthritis, cancer, coronary artery disease, diabetes, dialysis, GERD, hyperlipidemia, hypertension, myocardial infarction, renal disease, other Surgical history: Reports: appendectomy, cholecystectomy, coronary bypass (CABG) , hysterectomy, ureteral stent, other Psychiatric history: Reports: anxiety, depression CARE ASST history: Reports: no CARE ASST history - Social History Smoking Status: Former smoker Smokeless Tobacco Status: No Alcohol use: Reports: none Drug use: Reports: none Physical Exam - General Limitations: no limitations General appearance: alert, in no apparent distress Course Vital Signs Temperature 100.6 F H 07/24/18 05:42 Pulse Rate 80 07/24/18 05:42 Respiratory Rate 20 07/24/18 05:42 Blood Pressure 156/60 07/24/18 05:42 O2 Sat by Pulse Oximetry 96 07/24/18 05:42 Temperature 100.6 F H 07/24/18 05:42 Pulse Rate 80 07/24/18 05:42 Respiratory Rate 20 07/24/18 05:42 Blood Pressure 156/60 07/24/18 05:42 O2 Sat by Pulse Oximetry 96 07/24/18 05:42 Oxygen Delivery Oxygen Delivery Room Air
--- NOTE | 2018-07-24 07:08 | Emergency Department Note ---
Disposition Clinical Impression: Abdominal pain Qualifiers: Abdominal location: generalized Qualified Code(s): R10.84 - Generalized abdominal pain Disposition: Still a Patient Condition: Fair Forms: ED Satisfaction Letter, Work/School Release General Adult HPI - General Chief complaint: ED Abdominal Pain Stated complaint: abd pain Time Seen by Provider: 07/24/18 05:41 Source: patient, EMS Mode of arrival: EMS Limitations: no limitations - History of Present Illness Pain Scale: 7 - Related Data Home Medications Medication Instructions Recorded Confirmed Folic Acid 1 mg PO DAILY 07/10/15 06/26/18 Levothyroxine [Synthroid] 50 mcg PO QAM 07/10/15 06/26/18 Pantoprazole Sodium [Protonix] 40 mg PO BID 07/10/15 06/26/18 Solifenacin Succinate [Vesicare] 10 mg PO DAILY 07/10/15 06/26/18 Docusate [Colace] 100 mg PO BID 10/14/16 06/26/18 Albuterol Sulfate [Proair Hfa] 2 puff IH Q4H PRN 03/17/17 06/26/18 Atorvastatin [Lipitor] 40 mg PO HS 03/17/17 06/26/18 Clopidogrel [Plavix] 75 mg PO DAILY 05/09/17 06/26/18 Ondansetron ODT [Zofran ODT] 4 mg PO Q8H PRN 05/09/17 06/26/18 Sucralfate [Carafate] 1 gm PO 0730,1630 05/09/17 06/26/18 Diclofenac Sodium 1 appl TP DAILY PRN 03/01/18 06/26/18 Folic Acid/Vit Bcomp,C [Renal-Elizabeth 0.8 mg PO DAILY 03/01/18 06/26/18 Tablet] Furosemide [Lasix] 20 mg PO DAILY 03/01/18 06/26/18 Amitriptyline [Elavil] 25 mg PO HS 03/26/18 06/26/18 Cyclobenzaprine [Flexeril] 10 mg PO QAM 03/26/18 06/26/18 DULoxetine [Cymbalta] 30 mg PO DAILY 03/26/18 06/26/18 Ergocalciferol (VITAMIN D2) 50,000 unit PO MO 03/26/18 06/26/18 [Drisdol] Insulin ASPART [NovoLOG] 10 unit SQ BID 03/26/18 06/26/18 Insulin DETEMIR [Levemir] 12 - 14 unit SQ BID 03/26/18 06/26/18 Tamsulosin [Flomax] 0.4 mg PO DAILY 03/26/18 06/26/18 Zolpidem [Ambien] 5 mg PO HS 03/26/18 06/26/18 Lactobacillus Combination No.8 1 cap PO DAILY 05/04/18 06/26/18 [Adult Probiotic] Pramipexole Di-HCl [Pramipexole 0.125 mg PO HS 05/04/18 06/26/18 Dihydrochloride] Promethazine [Phenergan] 25 mg PO TID PRN 05/04/18 06/26/18 Psyllium Husk [Daily Fiber] 0.52 gm PO DAILY 05/04/18 06/26/18 SUMAtriptan Succinate [Imitrex] 6 mg SQ BID PRN 05/04/18 06/26/18 Lisinopril [Zestril] 10 mg PO DAILY 06/26/18 06/26/18 Previous Rx's Medication Instructions Recorded Aspirin 81 mg PO DAILY #30 tab.chew 02/18/16 Metoprolol XL (24 HR) Succ [Toprol 12.5 mg PO DAILY #30 tab.er.24h 02/18/16 Xl] OxyCODONE/APAP 5/325 [Percocet 1 tab PO TID PRN 3 Days #9 tablet 03/30/18 5/325 MG] Ciprofloxacin [Cipro] 500 mg PO Q24H 10 Days #10 tablet 06/28/18 metroNIDAZOLE [Flagyl] 500 mg PO TID 10 Days #30 tablet 06/28/18 Allergies Allergy/AdvReac Type Severity Reaction Status Date / Time adhesive tape Allergy Redness of Verified 07/15/18 11:57 Skin latex Allergy Swelling Verified 07/15/18 11:57 of Lip/Tongue/Throat Sulfa (Sulfonamide Allergy Rash Verified 07/15/18 11:57 Antibiotics) Constitutional: Denies: fever, chills, weakness, weight change Eyes: Denies: eye pain, eye discharge, vision change ENT ED: Denies: ear pain, throat pain, dental pain, hearing loss, epistaxis, congestion, dysphagia Cardiovascular: Denies: chest pain, palpitations, dyspnea on exertion, edema, syncope Respiratory: Denies: cough, dyspnea, wheezes, hemoptysis, stridor Gastrointestinal: Reports: abdominal pain. Denies: nausea, vomiting, diarrhea, constipation, hematemesis, melena, hematochezia Genitourinary: Denies: dysuria, frequency, hematuria, discharge Musculoskeletal: Denies: back pain, neck pain, arthralgia, myalgia Integumentary: Denies: rash, abrasion, lesions Neurological: Denies: headache, weakness, numbness, paresthesias, confusion, abnormal gait, vertigo Psychiatric: Denies: anxiety, depression, suicidal thoughts, homicidal thoughts , auditory hallucinations, visual hallucinations Endocrine: Denies: fatigue Hematological/Lymphatic: Denies: easy bleeding, easy bruising Allergic/Immunologic: Denies: facial swelling, urticaria Past Medical History - Past Medical History Medical history: Reports: arthritis, cancer, coronary artery disease, diabetes, dialysis, GERD, hyperlipidemia, hypertension, myocardial infarction, renal disease, other Surgical history: Reports: appendectomy, cholecystectomy, coronary bypass (CABG) , hysterectomy, ureteral stent, other Psychiatric history: Reports: anxiety, depression 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 - Social History Smoking Status: Former smoker Smokeless Tobacco Status: No Alcohol use: Reports: none Drug use: Reports: none Physical Exam - General Limitations: no limitations General appearance: alert, in no apparent distress Course Vital Signs Temperature 100.6 F H 07/24/18 05:42 Pulse Rate 80 07/24/18 05:42 Respiratory Rate 20 07/24/18 05:42 Blood Pressure 156/60 07/24/18 05:42 O2 Sat by Pulse Oximetry 96 07/24/18 05:42 Temperature 100.6 F H 07/24/18 05:42 Pulse Rate 80 07/24/18 05:42 Respiratory Rate 20 07/24/18 05:42 Blood Pressure 156/60 07/24/18 05:42 O2 Sat by Pulse Oximetry 96 07/24/18 05:42 Oxygen Delivery Oxygen Delivery Room Air Attestation Statement - Attestation Attestation: I examined this patient and my medical decision-making was reviewed with the Resident Physician. I agree with the documented findings, disposition and treatment plan as described except to the extent set forth below. 67 year old female presents to the ED with complaints of abdominal pain and most reently was treatd for colitis concern for C.diff. I accepted sign out from the christine hammonds (Oscar/Fazal). She is febrile and had a reent hospitalization. Labs and ABCT are pending. WE will treat her fever wit tyelnol and look for source of infection lkely source being the diarrhea
[2018-07-24] MEDS ORDERED: Isovue-370 500 ML INFUS..BTL IV ONE (07:19)
[2018-07-24 07:23] LABS: Basophils % 0.2 %; Eosinophils # 0.1 K/mcL (0.0-0.6); Eosinophils % 0.9 %; Hematocrit 27.8 % (35.3-44.9); Hemoglobin 9.1 g/dL (11.5-15.4); Lymphocytes # 1.4 K/mcL (0.6-4.6); Lymphocytes % 14.8 %; Mean Corpuscular HGB Conc 32.7 g/dL (31.6-35.5); Mean Corpuscular Hemoglobin 31.4 pg (28.0-33.3); Mean Corpuscular Volume 95.9 fL (83.0-100.0); Mean Platelet Volume 10.3 fL (9.4-12.4); Monocytes # 0.8 K/mcL (0.0-1.3); Monocytes % 7.8 %; Neutrophils # 7.3 K/mcL (1.6-8.9); Platelet Count 213 K/mcL (140-400); Red Cell Distribution Width 13.9 % (11.5-14.5); Segmented Neutrophils % 75.3 %
--- NOTE | 2018-07-24 07:23 | Emergency Department Note ---
Disposition Clinical Impression: HCAP (healthcare-associated pneumonia) Back pain Qualifiers: Back pain location: low back pain Chronicity: unspecified Back pain laterality : midline Sciatica presence: without sciatica Qualified Code(s): M54.5 - Low back pain Disposition: Admitted As Inpatient Condition: Fair Time of Disposition: 09:48 General Adult HPI - General Chief complaint: ED Abdominal Pain Stated complaint: abd pain Time Seen by Provider: 07/24/18 05:41 Source: patient, EMS Mode of arrival: EMS Limitations: no limitations Nursing Notes Reviewed: Yes Vital Signs Reviewed: Yes - History of Present Illness HPI Narrative: 67-year-old female recently hospitalization for over 2 weeks for IV antimicrobials therapy for colitis. Presents to the emergency department with fever per home health staff. CT scan of the abdomen and pelvis was obtained which revealed resolving colitis. Patient also reporting having myalgias and arthralgias as well as cough. Pain Scale: 7 - Related Data Home Medications Medication Instructions Recorded Confirmed Folic Acid 1 mg PO DAILY 07/10/15 07/24/18 Levothyroxine [Synthroid] 50 mcg PO QAM 07/10/15 07/24/18 Pantoprazole Sodium [Protonix] 40 mg PO BID 07/10/15 07/24/18 Solifenacin Succinate [Vesicare] 10 mg PO DAILY 07/10/15 07/24/18 Docusate [Colace] 100 mg PO BID 10/14/16 07/24/18 Albuterol Sulfate [Proair Hfa] 2 puff IH Q4H PRN 03/17/17 07/24/18 Atorvastatin [Lipitor] 40 mg PO HS 03/17/17 07/24/18 Clopidogrel [Plavix] 75 mg PO DAILY 05/09/17 07/24/18 Ondansetron ODT [Zofran ODT] 4 mg PO Q8H PRN 05/09/17 07/24/18 Sucralfate [Carafate] 1 gm PO 0730,1630 05/09/17 07/24/18 Diclofenac Sodium 1 appl TP DAILY PRN 03/01/18 07/24/18 Folic Acid/Vit Bcomp,C [Renal-Elizabeth 0.8 mg PO DAILY 03/01/18 07/24/18 Tablet] Furosemide [Lasix] 20 mg PO DAILY 03/01/18 07/24/18 Amitriptyline [Elavil] 25 mg PO HS 03/26/18 07/24/18 Cyclobenzaprine [Flexeril] 10 mg PO QAM 03/26/18 07/24/18 DULoxetine [Cymbalta] 30 mg PO DAILY 03/26/18 07/24/18 Ergocalciferol (VITAMIN D2) 50,000 unit PO MO 03/26/18 07/24/18 [Drisdol] Insulin ASPART [NovoLOG] 10 unit SQ BID 03/26/18 07/24/18 Insulin DETEMIR [Levemir] 12 - 14 unit SQ BID 03/26/18 07/24/18 Tamsulosin [Flomax] 0.4 mg PO DAILY 03/26/18 07/24/18 Zolpidem [Ambien] 5 mg PO HS 03/26/18 07/24/18 Lactobacillus Combination No.8 1 cap PO DAILY 05/04/18 07/24/18 [Adult Probiotic] Pramipexole Di-HCl [Pramipexole 0.125 mg PO HS 05/04/18 07/24/18 Dihydrochloride] Promethazine [Phenergan] 25 mg PO TID PRN 05/04/18 07/24/18 Psyllium Husk [Daily Fiber] 0.52 gm PO DAILY 05/04/18 07/24/18 SUMAtriptan Succinate [Imitrex] 6 mg SQ BID PRN 05/04/18 07/24/18 Lisinopril [Zestril] 10 mg PO DAILY 06/26/18 07/24/18 Previous Rx's Medication Instructions Recorded Aspirin 81 mg PO DAILY #30 tab.chew 02/18/16 Metoprolol XL (24 HR) Succ [Toprol 12.5 mg PO DAILY #30 tab.er.24h 02/18/16 Xl] OxyCODONE/APAP 5/325 [Percocet 1 tab PO TID PRN 3 Days #9 tablet 03/30/18 5/325 MG] Allergies Allergy/AdvReac Type Severity Reaction Status Date / Time adhesive tape Allergy Redness of Verified 07/15/18 11:57 Skin latex Allergy Swelling Verified 07/15/18 11:57 of Lip/Tongue/Throat Sulfa (Sulfonamide Allergy Rash Verified 07/15/18 11:57 Antibiotics) Constitutional: Denies: fever, chills, weakness, weight change Eyes: Denies: eye pain, eye discharge, vision change ENT ED: Denies: ear pain, throat pain, dental pain, hearing loss, epistaxis, congestion, dysphagia Cardiovascular: Denies: chest pain, palpitations, dyspnea on exertion, edema, syncope Respiratory: Denies: cough, dyspnea, wheezes, hemoptysis, stridor Gastrointestinal: Reports: abdominal pain. Denies: nausea, vomiting, diarrhea, constipation, hematemesis, melena, hematochezia Genitourinary: Denies: dysuria, frequency, hematuria, discharge Musculoskeletal: Denies: back pain, neck pain, arthralgia, myalgia Integumentary: Denies: rash, abrasion, lesions Neurological: Denies: headache, weakness, numbness, paresthesias, confusion, abnormal gait, vertigo Psychiatric: Denies: anxiety, depression, suicidal thoughts, homicidal thoughts , auditory hallucinations, visual hallucinations Endocrine: Denies: fatigue Hematological/Lymphatic: Denies: easy bleeding, easy bruising Allergic/Immunologic: Denies: facial swelling, urticaria Past Medical History - Past Medical History Medical history: Reports: arthritis, cancer, coronary artery disease, diabetes, dialysis, GERD, hyperlipidemia, hypertension, myocardial infarction, renal disease, other Surgical history: Reports: appendectomy, cholecystectomy, coronary bypass (CABG) , hysterectomy, ureteral stent, other Psychiatric history: Reports: anxiety, depression SHAKER WASHER history: Reports: no SHAKER WASHER history - Social History Smoking Status: Former smoker Smokeless Tobacco Status: No Alcohol use: Reports: none Drug use: Reports: none Physical Exam - General Limitations: no limitations General appearance: alert, in no apparent distress - Head Head exam: normocephalic - Eye Eye exam: Present: EOMI - ENT ENT exam: normal oropharynx - Neck Neck exam: Present: trachea midline - Chest Chest inspection: Present: symmetric chest wall rise - Respiratory Respiratory exam: Present: normal lung sounds bilaterally. Absent: respiratory distress - Cardiovascular Cardiovascular exam: Present: regular rate, normal rhythm, normal heart sounds - Abdominal Exam Abdominal exam: Present: soft, tenderness. Absent: distention, guarding, rebound, rigidity Abdominal tenderness: Present: moderate (Tenderness in the lower abdomen.) - Extremities Exam Extremities exam: Present: full ROM, normal capillary refill - Back Exam Back exam: Present: vertebral tenderness (In the lumbar spine) - Neurological Exam Neurological exam: Present: alert, oriented X3 - Psychiatric Psychiatric exam: Present: normal affect, normal mood - Skin Skin exam: Present: warm, dry, intact, normal color Course Vital Signs Temperature 100.6 F H 07/24/18 05:42 Pulse Rate 80 07/24/18 05:42 Respiratory Rate 20 07/24/18 05:42 Blood Pressure 156/60 07/24/18 05:42 O2 Sat by Pulse Oximetry 96 07/24/18 05:42 Temperature 99.6 F 07/24/18 07:16 Pulse Rate 76 07/24/18 08:43 Respiratory Rate 18 07/24/18 09:28 Blood Pressure 98/46 07/24/18 09:28 O2 Sat by Pulse Oximetry 93 07/24/18 08:43 Oxygen Delivery Oxygen Delivery Nasal Cannula Medical Decision Making - MDM Narrative Medical decision making narrative: 67-year-old female with abdominal pain, cough, myalgias, arthralgias who presented to the emergency department febrile with a temperature of 100.6. At times in her visit, patient became slightly hypoxic. Never requiring oxygen via nasal cannula, however, oxygen saturation was fluctuated between 89% and 95% . Patient never appeared to be in any distress. Patient met SIRS criteria with fever and hypoxia. She was given Tylenol. We obtained blood cultures, urinalysis, chest x-ray, CT scan of the abdomen and pelvis. We also obtain a lactic acid. This was within normal limits. Chest x-ray revealed right basilar pneumonia with small parapneumonic effusion. Due to patient's recent admission at the [facility] where she received IV antimicrobials, patient is at risk for hospital-acquired pneumonia. Patient was given vancomycin, Zosyn, azithromycin here in the emergency department. Obtain CT scan of the abdomen and pelvis. This revealed improved colitis. However, there was concern for degenerative changes at L3 and L4. Patient did have for tubal tenderness along this region on physical exam without neurologic abnormality. With the fever, cannot rule out osteomyelitis or discitis at this time. I spoke with Dr. Boyd, orthopedic spine. He recommended that we obtain MRI of the spine. He stated at this revealed discitis or osteomyelitis, to consult infectious disease. At this time, the MRI is currently pending. Patient is end-stage renal disease who is on dialysis on Tuesday was a Tuesday. Patient has not received dialysis today. Patient is not hyperkalemic and does not appear to be fluid overloaded. She does not require emergent dialysis at this time. Patient was admitted to the hospitalist. MRI is pending. Believe that patient' s fever and hypoxia is most likely secondary to her hospital-acquired pneumonia. Patient agree with plan for admission. Not in acute distress at time of admission. Abdomen/Pelvis CT 07/24/18 05:46 IMPRESSION: 1. No convincing finding to account for patient's abdominal pain. Previously seen colitis has improved 2. Mild right renal pelvicaliectasis without cal hydronephrosis. There is a ureteral stent in place, from the renal hilum to the urinary bladder. 3. Persistent small right pleural effusion with right lower lobe atelectasis. 4. Severe degenerative changes at L3-L4 with mild resorption of the endplate. If there is clinical concern for discitis osteomyelitis, consider MRI of the lumbar spine for further evaluation. 5. Status post cholecystectomy and hysterectomy. D/ / 07/24/2018 07:51:15 Gerald Hood MD / damon Interpreting Provider: Gerald Hood MD Chest X-Ray 07/24/18 07:08 IMPRESSION: Right basilar pneumonia with small parapneumonic effusion. D/ / Charles Cortes MD / Charles Cortes MD Interpreting Provider: Charles Cortes MD - Lab Data Result diagrams: 07/24/18 07:03 07/24/18 07:03 Lab Results 07/24/18 07/24/18 07/24/18 Range/Units 07:00 07:03 07:03 WBC 9.7 (4.3-11.1) K/mcL RBC 2.90 L (3.82-4.97) M/mcL Hgb 9.1 L (11.5-15.4) g/dL Hct 27.8 L (35.3-44.9) % MCV 95.9 (83.0-100.0) fL MCH 31.4 (28.0-33.3) pg MCHC 32.7 (31.6-35.5) g/dL RDW 13.9 (11.5-14.5) % Plt Count 213 (140-400) K/mcL MPV 10.3 (9.4-12.4) fL Immature Gran % 1.0 (0-4) % Seg Neutrophils % 75.3 % Lymphocytes % 14.8 % Monocytes % 7.8 % Eosinophils % 0.9 % Basophils % 0.2 % Neutrophils # 7.3 (1.6-8.9) K/mcL Lymphocytes # 1.4 (0.6-4.6) K/mcL Monocytes # 0.8 (0.0-1.3) K/mcL Eosinophils # 0.1 (0.0-0.6) K/mcL Basophils # 0.0 (0.0-0.2) K/mcL ESR (0-15) mm/hr Sodium 133 L (136-145) mEq/L Potassium 3.7 (3.5-5.1) mEq/L Chloride 99 (98-107) mEq/L Carbon Dioxide 26 (23-29) mEq/L BUN 27 H (8-23) mg/dL Creatinine 4.05 H (0.60-1.20) mg/dL Est GFR ( Amer) 13 L (> 60) Est GFR (Non-Af Amer) 11 L (> 60) BUN/Creatinine Ratio 7 (6-26) Glucose 151 H (70-105) mg/dL Calculated Osmolality 284 (280-300) Lactic Acid (0.5-2.2) mmol/L Calcium 7.7 L (8.6-10.3) mg/dL Total Bilirubin 0.3 (0.3-1.0) mg/dL Direct Bilirubin 0.1 (0.0-0.2) mg/dL Indirect Bilirubin 0.2 (0.0-1.2) mg/dL AST 16 (13-39) Units/L ALT 11 (7-52) Units/L Alkaline Phosphatase 105 H (34-104) Units/L C-Reactive Protein 60 H (Less than 10) mg/L Serum Total Protein 6.0 L (6.4-8.9) g/dL Albumin 2.8 L (3.5-5.7) g/dL Globulin 3.2 (2.4-3.5) g/dL Albumin/Globulin Ratio 0.9 L (1.1-2.2) Lipase 13 (11-82) Units/L Urine Color Yellow (Yellow) Urine Clarity Cloudy A (Clear) Urine pH 7.0 (5.0-8.0) pH Units Ur Specific [place] 1.006 L (1.010-1.025) Urine Protein >=300 H (Neg-Trace) mg/dL Urine Glucose (UA) 250 H (Normal) mg/dL Urine Ketones Negative (Negative) mg/dL Urine Blood Moderate H (Negative) Urine Nitrite Negative (Negative) Urine Bilirubin Negative (Negative) Urine Urobilinogen Normal (Normal) mg/dL Ur Leukocyte Esterase Large H (Negative) Urine Microscopic RBC 15-30 H (0-3) per hpf Urine Microscopic WBC TNTC H (0-3) per hpf Ur Squamous Epith Cells Many H (None-Few) per lpf Urine Bacteria Few (None-Few) per hpf Hyaline Casts None Seen (None-Few) per lpf Ur Culture Indicated? NO. A (NO) 07/24/18 07/24/18 Range/Units 07:03 07:46 WBC (4.3-11.1) K/mcL RBC (3.82-4.97) M/mcL Hgb (11.5-15.4) g/dL Hct (35.3-44.9) % MCV (83.0-100.0) fL MCH (28.0-33.3) pg MCHC (31.6-35.5) g/dL RDW (11.5-14.5) % Plt Count (140-400) K/mcL MPV (9.4-12.4) fL Immature Gran % (0-4) % Seg Neutrophils % % Lymphocytes % % Monocytes % % Eosinophils % % Basophils % % Neutrophils # (1.6-8.9) K/mcL Lymphocytes # (0.6-4.6) K/mcL Monocytes # (0.0-1.3) K/mcL Eosinophils # (0.0-0.6) K/mcL Basophils # (0.0-0.2) K/mcL ESR 67 H (0-15) mm/hr Sodium (136-145) mEq/L Potassium (3.5-5.1) mEq/L Chloride (98-107) mEq/L Carbon Dioxide (23-29) mEq/L BUN (8-23) mg/dL Creatinine (0.60-1.20) mg/dL Est GFR ( Amer) (> 60) Est GFR (Non-Af Amer) (> 60) BUN/Creatinine Ratio (6-26) Glucose (70-105) mg/dL Calculated Osmolality (280-300) Lactic Acid 0.9 (0.5-2.2) mmol/L Calcium (8.6-10.3) mg/dL Total Bilirubin (0.3-1.0) mg/dL Direct Bilirubin (0.0-0.2) mg/dL Indirect Bilirubin (0.0-1.2) mg/dL AST (13-39) Units/L ALT (7-52) Units/L Alkaline Phosphatase (34-104) Units/L C-Reactive Protein (Less than 10) mg/L Serum Total Protein (6.4-8.9) g/dL Albumin (3.5-5.7) g/dL Globulin (2.4-3.5) g/dL Albumin/Globulin Ratio (1.1-2.2) Lipase (11-82) Units/L Urine Color (Yellow) Urine Clarity (Clear) Urine pH (5.0-8.0) pH Units Ur Specific [place] (1.010-1.025) Urine Protein (Neg-Trace) mg/dL Urine Glucose (UA) (Normal) mg/dL Urine Ketones (Negative) mg/dL Urine Blood (Negative) Urine Nitrite (Negative) Urine Bilirubin (Negative) Urine Urobilinogen (Normal) mg/dL Ur Leukocyte Esterase (Negative) Urine Microscopic RBC (0-3) per hpf Urine Microscopic WBC (0-3) per hpf Ur Squamous Epith Cells (None-Few) per lpf Urine Bacteria (None-Few) per hpf Hyaline Casts (None-Few) per lpf Ur Culture Indicated? (NO)
[2018-07-24 07:37] LABS: Bilirubin,Urine Negative (Negative); Blood,Urine Moderate (Negative); Clarity,Urine Cloudy (Clear); Color,Urine Yellow (Yellow); Glucose,Urine (UA) 250 mg/dL (Normal); Ketones,Urine Negative (Negative); Leukocyte Esterase,Urine Large (Negative); Nitrite,Urine Negative (Negative); Protein,Urine >=300 mg/dL (Neg-Trace); Specific Gravity,Urine 1.006 (1.010-1.025); Urobilinogen,Urine Normal (Normal)
[2018-07-24 07:40] LABS: Hyaline Casts,Urine None Seen per lpf (None-Few); RBC,Urine 15-30 per hpf (0-3); Squamous Epithelial Cell,Urine Many per lpf (None-Few); WBC,Urine TNTC per hpf (0-3)
[2018-07-24 07:51] LABS: Bacteria,Urine Few per hpf (None-Few)
[2018-07-24 07:58] LABS: Albumin 2.8 g/dL (3.5-5.7); Albumin/Globulin Ratio 0.9 (1.1-2.2); Bilirubin,Direct 0.1 mg/dL (0.0-0.2); Bilirubin,Indirect 0.2 mg/dL (0.0-1.2); Bilirubin,Total 0.3 mg/dL (0.3-1.0); Calcium 7.7 mg/dL (8.6-10.3); Globulin 3.2 g/dL (2.4-3.5); Potassium 3.7 mEq/L (3.5-5.1)
[2018-07-24] MEDS ORDERED: Azithromycin 500 MG in D5% in Water 250 ML IVPB ONE (08:07)
[2018-07-24] MEDS ORDERED: Piperacillin/Tazobactam 3.375 GM in 0.9 % Sodium Chloride Mini Bag 100 ML IVPB ONE (08:09)
--- NOTE | 2018-07-24 11:42 | Internal Med History&Physical ---
Date of Encounter: 07/24/18 Time of Encounter: 11:40 Internal Medicine - H&P: HPI Chief complaint: cough, fever Admitted From: Home History of present illness: Ms. Dan is a 67 year old female past medical of hypertension, diabetes, lung cancer status post radiation, end-stage renal disease on dialysis who was recently treated with IV antibiotics for colitis and UTI's treated with the IV antibiotics coming complain of abdominal pain, cough and malaise. She was discharged from [facility] were 2 days ago after receiving the IV antibiotics. She was worried about worsening of her colitis. She had constipation for which she needed a rectal tube. Currently denied any fevers constipation or diarrhea. Had some chills but denied any fevers. He had associated shortness of breath, without or chest pain. Patient had occasional episodes of hypoxia while in ER. Her temperature was noted to be 100.6. She had Elevated CRP. Chest x-ray revealed right basilar pneumonia with small parapneumonic effusion. Patient had a CT scan of the abdomen which showed improved colitis, ureteral stenting placed, small right pleural effusion and findings concerning with L3-L4 discitis osteomyelitis. She was started on IV vancomycin, Zosyn, azithromycin for treatment of HCAP. She received 1 L of normal saline Dr. Boyd was contacted with the findings of the CAT scan who recommended MRI. Patient was admitted for treatment of hospital-acquired pneumonia and to evaluate and treat if needed for osteomyelitis. During interview patient in no acute distress. Complains of abdominal tenderness diffusely. She just had MRI done the reading of which is pending. Patient is end-stage renal disease who is on dialysis on Tuesday was a Tuesday. Patient has not received dialysis today. Past Med Surg Social Fam HX - Past Medical History Medical history: arthritis, cancer, coronary artery disease, diabetes, dialysis , GERD, hyperlipidemia, hypertension, myocardial infarction, renal disease, other Additional medical history: neuropathy, insomnia Psychiatric history: anxiety, depression - Past Surgical History Surgical History: appendectomy, cholecystectomy, coronary bypass (CABG), hysterectomy, ureteral stent, other Additional surgical history: colonoscopy - egd - tubal ligation - kidney stent - Social History Smoking Status: Former smoker Smokeless Tobacco Status: No Alcohol use: none Drug use: none - Family History Mother Living Status: Hx Family Endocrine Disorder: (DM) Father Adopted: No Hx Family Cardiac Disorders: Yes ("heart troubles") Hx Family Cancer: Yes (Prostate cancer) Hx Family Endocrine Disorder: Yes (DM) Brother Hx Family Cardiac Disorders: Yes (CAD) Hx Family Cancer: Yes (lung cancer) Internal Medicine - H&P: Meds Folic Acid 1 mg PO DAILY 07/10/15 [History] Levothyroxine [Synthroid] 50 mcg PO QAM 07/10/15 [History] Pantoprazole Sodium [Protonix] 40 mg PO BID 07/10/15 [History] Solifenacin Succinate [Vesicare] 10 mg PO DAILY 07/10/15 [History] Aspirin 81 mg PO DAILY #30 tab.chew 02/18/16 [Rx] Metoprolol XL (24 HR) Succ [Toprol Xl] 12.5 mg PO DAILY #30 tab.er.24h 02/18/16 [Rx] Docusate [Colace] 100 mg PO BID 10/14/16 [History] Albuterol Sulfate [Proair Hfa] 2 puff IH Q4H PRN 03/17/17 [History] Atorvastatin [Lipitor] 40 mg PO HS 03/17/17 [History] Clopidogrel [Plavix] 75 mg PO DAILY 05/09/17 [History] Ondansetron ODT [Zofran ODT] 4 mg PO Q8H PRN 05/09/17 [History] Sucralfate [Carafate] 1 gm PO 0730,1630 05/09/17 [History] Diclofenac Sodium 1 appl TP DAILY PRN 03/01/18 [History] Folic Acid/Vit Bcomp,C [Renal-Elizabeth Tablet] 0.8 mg PO DAILY 03/01/18 [History] Furosemide [Lasix] 20 mg PO DAILY 03/01/18 [History] Amitriptyline [Elavil] 25 mg PO HS 03/26/18 [History] Cyclobenzaprine [Flexeril] 10 mg PO QAM 03/26/18 [History] DULoxetine [Cymbalta] 30 mg PO DAILY 03/26/18 [History] Ergocalciferol (VITAMIN D2) [Drisdol] 50,000 unit PO MO 03/26/18 [History] Insulin ASPART [NovoLOG] 10 unit SQ BID 03/26/18 [History] Insulin DETEMIR [Levemir] 12 - 14 unit SQ BID 03/26/18 [History] Tamsulosin [Flomax] 0.4 mg PO DAILY 03/26/18 [History] Zolpidem [Ambien] 5 mg PO HS 03/26/18 [History] OxyCODONE/APAP 5/325 [Percocet 5/325 MG] 1 tab PO TID PRN 3 Days #9 tablet 03/30 [Rx] Lactobacillus Combination No.8 [Adult Probiotic] 1 cap PO DAILY 05/04/18 [ History] Pramipexole Di-HCl [Pramipexole Dihydrochloride] 0.125 mg PO HS 05/04/18 [ History] Promethazine [Phenergan] 25 mg PO TID PRN 05/04/18 [History] Psyllium Husk [Daily Fiber] 0.52 gm PO DAILY 05/04/18 [History] SUMAtriptan Succinate [Imitrex] 6 mg SQ BID PRN 05/04/18 [History] Lisinopril [Zestril] 10 mg PO DAILY 06/26/18 [History] 3 Allergy/AdvReac Type Severity Reaction Status Date / Time adhesive tape Allergy Redness of Verified 07/15/18 11:57 Skin latex Allergy Swelling Verified 07/15/18 11:57 of Lip/Tongue/Throat Sulfa (Sulfonamide Allergy Rash Verified 07/15/18 11:57 Antibiotics) All Systems PM: A 10-system review of systems was performed and is negative for pertinent findings except as documented above in the HPI. - Constitutional Vitals: Temp Pulse Resp BP Pulse Ox 99.6 F 76 18 98/46 93 07/24/18 07:16 07/24/18 08:43 07/24/18 09:28 07/24/18 09:28 07/24/18 08:43 General appearance: Present: A&O X 3, no acute distress Exam: Constitutional: Vitals as noted. Conversant. No Apparent Distress. Well groomed. Eyes exam: Sclera white, conjunctiva clear, no lid lag, PEARLA. ENT exam: Grossly normal hearing. Nasophargeal and Oropharyngeal exam unremarkable. Moist mucus membranes. No JVD, carotid bruit, no cervical lymphadenopathy. no thyromegaly or mass. Respiratory exam: Clear to auscultation bilaterally. No accessory muscle use, rales, rhonchi or wheezes Cardiovascular exam: RRR, +S1, +S2. no murmur, gallop, rubs. No chest wall tenderness GI/Abdominal exam: Soft, diffusely tender, Non-distended, normal bowel sounds, soft, no peritoneal signs. no orgenomegaly or mass appreciated. no hernia. Musculoskeletal exam: full ROM, no atrophy or deformity noted. no edema or cyanosis, warm, pulses palpable and symmetrical in UE/LE. no calf tenderness. Has dialysis fistula on Rt arm. Neurological exam: AO X3, CN II-XII grossly intact, grossly normal motor and sensory exam. Normal muscle tone and reflexes. Skin exam: No skin rash, lesions or ulcers noted. no purpura or ecchymosis. Pych: Good insight and judgement. Intact memory. AOx3. Internal Med - H&P Results - Labs CBC & Chem 7: 07/24/18 07:03 07/24/18 07:03 - Assessment and plan (1) HCAP (healthcare-associated pneumonia) Current Visit: Yes Status: Acute Assessment and plan: - Status post 1 L normal saline in the ER as well as vancomycin, Zosyn and azithromycin - We will continue vancomycin, Zosyn and azithromycin. - Continue supplemental oxygen. - Follow blood and sputum cultures. Follow-up urine Legionella and pneumococcal antigen and MRSA screen (2) Back pain Current Visit: Yes Status: Acute Assessment and plan: - CT abdomen showed severe degenerative changes of L3-L4 with concerns of possible discitis osteomyelitis. - Patient had MRI this morning. Follow-up report - Patient on antibiotics which should cover for osteomyelitis as well. - Spine surgery consulted Qualifiers: Back pain location: low back pain Chronicity: unspecified Back pain laterality: midline Sciatica presence: without sciatica Qualified Code(s): M54.5 - Low back pain (3) Colitis Current Visit: No Status: Acute Assessment and plan: - Imaging improving with minimal persistent symptoms - Resolving. - We will continue oral diet (4) ESRD needing dialysis Current Visit: No Status: Chronic Assessment and plan: - On dialysis MWF. - Strict I's and O's. We will Avoid nephrotoxin and renal dose medication. - Nephrology consulted (5) Insulin dependent diabetes mellitus Current Visit: No Status: Chronic Assessment and plan: - We will keep patient on Levemir 10 at bedtime and sliding scale with Accu- Cheks (6) DVT prophylaxis Current Visit: No Status: Acute Assessment and plan: - Heparin subcutaneous - Time Spent With Patient Total time spent is greater than 50% in coordination of care (as documented) at patient's floor/unit and/or counseling patient:
[2018-07-24] MEDS ORDERED: DICLOFENAC SODIUM APPL TP PRN (13:30)
[2018-07-24] MEDS ORDERED: Vancomycin 1 EACH in 0.9 % Sodium Chloride 250 ML IVPB SCH (14:00)
--- NOTE | 2018-07-24 14:40 | Nephrology Consult Note ---
<Gerda Flynn - Last Filed: 07/24/18 15:22> Date of Encounter: 07/24/18 Time of Encounter: 14:31 Assessment and Plan (1) ESRD (end stage renal disease) on dialysis Status: Acute Current regimen is MWF at [facility]. Last Treatment was Tuesday, per patient. Plan for HD today. Avoid nephrotoxins and renal dose all medications. (2) Abdominal pain Status: Acute Per primary. Was just at [facility] for 2 weeks for colitis. Qualifiers: Abdominal location: generalized Qualified Code(s): R10.84 - Generalized abdominal pain (3) Colitis Status: Acute Per primary. History of Present Illness - Reason for Consult Consult date: 07/24/18 end stage renal disease - Chief Complaint abdominal pain - History of Present Illness Mrs. Dan is a 67 year old female with ESRD. Current regimen is MWF at [facility]. Last treatment was Tuesday without complication. PMH: arthritis, cancer, coronary artery disease, diabetes, dialysis, GERD, hyperlipidemia, hypertension, myocardial infarction. Patient has recently undergone treatment for Lung Ca. She presented to ED with fever per home health staff. CT scan did show improved colitis. She admits to fever/chills. Fever was 100.6 upon admission, but no other fevers noted. Denies nausea/diarrhea. Admits to arhralgias and overall feeling week. Pt appears very drowsy upon examination. RN tells me she had IV dilaudid in ED. Former smoker, no etoh or drug use. Pt was just inpatient for over 2 weeks at [facility] for colitis. Past Med Surg Social Fam HX - Past Medical History Medical history: arthritis, cancer, coronary artery disease, diabetes, dialysis, GERD, hyperlipidemia, hypertension, myocardial infarction, renal disease, other Additional medical history: neuropathy, insomnia Psychiatric history: anxiety, depression - Past Surgical History Surgical History: appendectomy, cholecystectomy, coronary bypass (CABG), hysterectomy, ureteral stent, other Additional surgical history: colonoscopy - egd - tubal ligation - kidney stent - Social History Smoking Status: Former smoker Smokeless Tobacco Status: No Alcohol use: none Drug use: none - Family History Brother Hx Family Cardiac Disorders: Yes (CAD) Hx Family Cancer: Yes (lung cancer) Father Adopted: No Hx Family Cardiac Disorders: Yes ("heart troubles") Hx Family Cancer: Yes (Prostate cancer) Hx Family Endocrine Disorder: Yes (DM) Mother Living Status: Hx Family Endocrine Disorder: (DM) Medications and Allergies RX: Folic Acid 1 mg PO DAILY 07/10/15 [History] RX: Levothyroxine [Synthroid] 50 mcg PO QAM 07/10/15 [History] RX: Pantoprazole Sodium [Protonix] 40 mg PO BID 07/10/15 [History] RX: Solifenacin Succinate [Vesicare] 10 mg PO DAILY 07/10/15 [History] RX: Aspirin 81 mg PO DAILY #30 tab.chew 02/18/16 [Rx] RX: Metoprolol XL (24 HR) Succ [Toprol Xl] 12.5 mg PO DAILY #30 tab.er.24h 02/18/16 [Rx] RX: Docusate [Colace] 100 mg PO BID 10/14/16 [History] RX: Albuterol Sulfate [Proair Hfa] 2 puff IH Q4H PRN 03/17/17 [History] RX: Atorvastatin [Lipitor] 40 mg PO HS 03/17/17 [History] RX: Clopidogrel [Plavix] 75 mg PO DAILY 05/09/17 [History] RX: Ondansetron ODT [Zofran ODT] 4 mg PO Q8H PRN 05/09/17 [History] RX: Sucralfate [Carafate] 1 gm PO 0730,1630 05/09/17 [History] RX: Folic Acid/Vit Bcomp,C [Renal-Elizabeth Tablet] 0.8 mg PO DAILY 03/01/18 [History] RX: Furosemide [Lasix] 20 mg PO DAILY 03/01/18 [History] RX: Amitriptyline [Elavil] 25 mg PO HS 03/26/18 [History] RX: DULoxetine [Cymbalta] 30 mg PO Q48H 03/26/18 [History] RX: Ergocalciferol (VITAMIN D2) [Drisdol] 50,000 unit PO MO 03/26/18 [History] RX: Insulin ASPART [NovoLOG] 2 - 8 unit SQ TID 03/26/18 [History] RX: Insulin DETEMIR [Levemir] 12 unit SQ QAM 03/26/18 [History] RX: Tamsulosin [Flomax] 0.4 mg PO DAILY 03/26/18 [History] RX: Zolpidem [Ambien] 5 mg PO HS 03/26/18 [History] RX: Lactobacillus Combination No.8 [Adult Probiotic] 1 cap PO DAILY 05/04/18 [History] RX: Pramipexole Di-HCl [Pramipexole Dihydrochloride] 0.125 mg PO HS 05/04/18 [History] RX: Promethazine [Phenergan] 25 mg PO TID PRN 05/04/18 [History] RX: Psyllium Husk [Daily Fiber] 0.52 gm PO DAILY 05/04/18 [History] RX: SUMAtriptan Succinate [Imitrex] 6 mg SQ BID PRN 05/04/18 [History] RX: Baclofen [Lioresal] 10 mg PO TID PRN 07/31/18 [History] RX: Lisinopril [Zestril] 20 mg PO DAILY 07/31/18 [History] RX: Mirtazapine [Remeron] 15 mg PO HS 07/31/18 [History] RX: Insulin DETEMIR [Levemir Flextouch] 14 unit SQ QPM 08/06/18 [History] RX: Ciprofloxacin [Cipro] 250 mg PO BID 14 Days #14 tablet 08/12/18 [Rx] RX: Fluconazole [Diflucan] 200 mg PO QPM 4 Days #4 tablet 08/12/18 [Rx] RX: OxyCODONE/APAP 5/325 [Percocet 5/325 MG] 1 tab PO TID PRN 3 Days #9 tablet 08/12/18 [Rx] RX: metroNIDAZOLE [Flagyl] 500 mg PO TID 14 Days #42 tablet 08/12/18 [Rx] Allergy/AdvReac Type Severity Reaction Status Date / Time adhesive tape Allergy Redness of Verified 07/15/18 11:57 Skin latex Allergy Swelling Verified 07/15/18 11:57 of Lip/Tongue/Throat Sulfa (Sulfonamide Allergy Rash Verified 07/15/18 11:57 Antibiotics) Review of Systems ROS unobtainable: other (as per HPI.) Constitutional: chills, fatigue, malaise Cardiovascular: no chest pain, no dyspnea, no edema Gastrointestinal: no nausea, no vomiting Exam - Vital Signs Vital signs: Initial Vital Signs Temp Pulse Resp BP Pulse Ox 100.6 F H 80 20 156/60 96 07/24/18 05:42 07/24/18 05:42 07/24/18 05:42 07/24/18 05:42 07/24/18 05:42 Vital Signs - Last 8 Hours Temp Pulse Resp BP Pulse Ox 07/24/18 12:05 97.9 F 73 16 135/60 100 07/24/18 09:28 18 98/46 Intake and Output 07/23/18 07/24/18 07/24/18 23:59 07:59 15:59 Intake Total 100 / 1100 Balance 100 / 1100 Intake: IV Fluids 100 / 100 Zosyn 3.375 GM In 0.9 % Sodium 100 / 100 Chloride (Mini-Bag +) 100 ML @ 25 mls/hr IVPB ONCE ONE Rx#: [id number] Other: Blood Glucose* 149 - General Appearance General appearance: well-developed, well-nourished EENT: ATNC, hearing intact, vision intact Neck: supple Respiratory: clear Cardiology: no edema, normal S1, normal S2 - Dialysis Access Dialysis Vascular Access: Arteriovenous Fistula thrill: Yes bruit: Yes Gastrointestinal: normoactive bowel sounds, no tenderness, no guarding Integumentary: no rash, warm and dry Neurologic: alert and oriented x3 Psychiatric: mood/affect appropriate, cooperative Results - Lab Results 07/24/18 07:03 07/24/18 07:03 Most recent lab results Calcium 7.7 mg/dL (8.6-10.3) L 07/24/18 07:03 Consult Discharge Plan - Plan Referrals: Bartolo Washburn MD [Primary Care Provider] - (Web-request completed 07/30/2018) <Bayron Griffin - Last Filed: 08/25/18 19:55> Assessment and Plan (1) ESRD (end stage renal disease) on dialysis Status: Chronic (2) HCAP (healthcare-associated pneumonia) Status: Resolved (3) Colitis Status: Acute (4) Back pain Status: Acute Qualifiers: Back pain location: low back pain Chronicity: unspecified Back pain laterality: midline Sciatica presence: without sciatica Qualified Code(s): M54.5 - Low back pain (5) Anemia Status: Chronic Qualifiers: Anemia type: due to chronic kidney disease Chronic kidney disease stage: on chronic dialysis Qualified Code(s): N18.6 - End stage renal disease; D63.1 - Anemia in chronic kidney disease; Z99.2 - Dependence on renal dialysis Exam - Vital Signs Vital signs: Initial Vital Signs Temp Pulse Resp BP Pulse Ox 100.6 F H 80 20 156/60 96 07/24/18 05:42 07/24/18 05:42 07/24/18 05:42 07/24/18 05:42 07/24/18 05:42 Results - Lab Results 07/30/18 03:44 07/30/18 03:44 Most recent lab results Calcium 8.5 mg/dL (8.6-10.3) L 07/30/18 03:44 - Attending Attestation I examined this patient and my medical decision-making was reviewed with the Resident Physician/REGIONAL TRANSFER LIAISON. I agree with the documented findings, disposition and treatment plan as described except to the extent set forth below. In brief; 67 y o female with PMH of DM, HTN, recently diagnosed lung cancer treated in [facility] and ESRD on HD admitted with efver/chills with CT showing colitis. Renal consulted for ESRD managment. Last HD umremarkable. On exam NAD but fatigued. Abx per primary team. Will resume HD regimen during hospital stay. Renal diet advised.
[2018-07-24] MEDS ORDERED: 0.9 % Sodium Chloride 250 ML IVC PRN (14:49)
[2018-07-24] MEDS ORDERED: 0.9 % Sodium Chloride 1,000 ML PRIME SCH (15:00)
[2018-07-24] MEDS ORDERED: Vancomycin 1 EACH in 0.9 % Sodium Chloride 250 ML IVPB PRN (15:00)
[2018-07-24] MEDS ORDERED: Piperacillin/Tazobactam 2.25 GM in 0.9 % Sodium Chloride Mini Bag 100 ML IVPB SCH (16:00)
[2018-07-24] MEDS: Sucralfate 1 GM TABLET PO SCH (19:21)
[2018-07-24] MEDS: Piperacillin/Tazobactam 3.375 GM in 0.9 % Sodium Chloride Mini Bag 100 ML IVPB SCH (20:03)
[2018-07-24] MEDS: *HR* OxyCODONE/APAP 5/325 TABLET PO PRN (20:10)
[2018-07-24] MEDS: Insulin DETEMIR 100 UNIT/ML X5UNITS SQ SCH (22:01)
[2018-07-24] MEDS: *HR* Heparin 5,000 UNIT/ML VIAL SQ SCH (22:01)
[2018-07-25 05:47] LABS: Basophils % 0.4 %; Eosinophils # 0.2 K/mcL (0.0-0.6); Hematocrit 26.6 % (35.3-44.9); Hemoglobin 8.6 g/dL (11.5-15.4); Immature Granulocytes % 0.5 % (0-4); Lymphocytes # 1.1 K/mcL (0.6-4.6); Lymphocytes % 15.1 %; Mean Corpuscular HGB Conc 32.3 g/dL (31.6-35.5); Mean Corpuscular Hemoglobin 31.6 pg (28.0-33.3); Mean Corpuscular Volume 97.8 fL (83.0-100.0); Mean Platelet Volume 10.2 fL (9.4-12.4); Monocytes # 0.8 K/mcL (0.0-1.3); Monocytes % 11.4 %; Neutrophils # 5.1 K/mcL (1.6-8.9); Platelet Count 196 K/mcL (140-400); Red Blood Count 2.72 M/mcL (3.82-4.97); Segmented Neutrophils % 69.6 %
[2018-07-25] MEDS: Piperacillin/Tazobactam 3.375 GM in 0.9 % Sodium Chloride Mini Bag 100 ML IVPB SCH ×2 (05:52→16:30)
[2018-07-25] MEDS: *HR* Heparin 5,000 UNIT/ML VIAL SQ SCH ×3 (05:52→21:31)
[2018-07-25 06:06] LABS: Calcium 8.1 mg/dL (8.6-10.3); Potassium 4.2 mEq/L (3.5-5.1)
[2018-07-25] MEDS ORDERED: D5% in Water 1,000 ML IVC PRN (07:39)
[2018-07-25] MEDS ORDERED: Dextrose Gel 15 GM/37.5 ML TUBE PO PRN ×2 (07:39)
[2018-07-25] MEDS ORDERED: *HR* Dextrose 50 % in Water (Syg) 50 ML SYRINGE IVP PRN (07:39)
[2018-07-25] MEDS: Insulin LISPRO 300 UNITS/3 ML VIAL SQ SCH ×4 (07:51→21:36)
[2018-07-25] MEDS: Psyllium 1 PACKET POWD.PACK PO SCH (08:22)
[2018-07-25] MEDS: Renal Vitamin 1 CAP CAPSULE PO SCH (08:22)
[2018-07-25] MEDS: Folic Acid 1 MG TABLET PO SCH (08:22)
[2018-07-25] MEDS: Azithromycin 250 MG TABLET PO SCH (08:22)
[2018-07-25] MEDS: Metoprolol XL (24 HR) Succ 25 MG TAB.ER.24H PO SCH (08:22)
[2018-07-25] MEDS: Sucralfate 1 GM TABLET PO SCH ×2 (08:23→16:27)
[2018-07-25] MEDS: Aspirin 81 MG TAB.CHEW PO SCH (08:23)
[2018-07-25] MEDS: Lactobacillus 1 EACH CAP.SPRINK PO SCH (08:23)
[2018-07-25] MEDS ORDERED: VIT BCOMP C PO SCH (09:00)
[2018-07-25] MEDS ORDERED: FOLIC ACID PO SCH (09:00)
[2018-07-25] MEDS ORDERED: Azithromycin 500 MG in D5% in Water 250 ML IVPB SCH (09:00)
[2018-07-25] MEDS ORDERED: [UNRECOGNIZED DRUG - OTHER] PO SCH (09:00)
[2018-07-25] MEDS: *HR* OxyCODONE/APAP 5/325 TABLET PO PRN ×3 (09:56→21:31)
[2018-07-25] MEDS ORDERED: Vancomycin 500 MG in 0.9 % Sodium Chloride Mini Bag 100 ML IVPB ONE (10:03)
--- NOTE | 2018-07-25 12:20 | Nephrology Progress Note ---
Date of Encounter: 07/25/18 Time of Encounter: 12:18 - Assessment and Plan (1) ESRD (end stage renal disease) on dialysis Current Visit: Yes Status: Acute HD yesterday without complication. Avoid nephrotoxins and renal dose all medications. Strict I/O Renal diet, if able to eat. (2) Abdominal pain Current Visit: Yes Status: Acute Per primary. Was just at [facility] for 2 weeks for colitis. Qualifiers: Abdominal location: generalized Qualified Code(s): R10.84 - Generalized abdominal pain (3) Colitis Current Visit: No Status: Acute Per primary. Subjective Principal diagnosis: abdominal pain Interval history: Pt seen and examined, doing well. Is overall just not feeling well. Objective - Vital Signs Vital signs: Vital Signs Temp Pulse Resp BP Pulse Ox 07/25/18 11:41 98.5 F 75 18 149/65 94 07/25/18 07:32 99.5 F 72 17 153/70 93 07/25/18 04:45 99.4 F 69 16 132/62 94 07/25/18 00:55 99 F 93 17 164/74 92 07/24/18 20:00 100.4 F H 96 17 174/72 96 07/24/18 18:40 97.5 F L 18 140/77 07/24/18 18:25 154/76 07/24/18 18:10 153/93 07/24/18 17:55 162/35 07/24/18 17:40 162/74 07/24/18 17:25 163/64 07/24/18 17:10 159/72 07/24/18 16:55 150/69 07/24/18 16:40 161/70 07/24/18 16:25 158/66 07/24/18 16:10 146/57 07/24/18 15:55 123/62 07/24/18 15:40 143/65 07/24/18 15:25 97.6 F 18 138/50 Intake and Output 07/24/18 07/25/18 07/25/18 23:59 07:59 15:59 Intake Total 100 / 100 240 / 240 Output Total 3600 / 3600 100 / 100 Balance -3600 / -3600 0 / 0 240 / 240 Intake: IV Fluids 100 / 100 Zosyn 3.375 GM In 0.9 % Sodium 100 / 100 Chloride (Mini-Bag +) 100 ML @ 25 mls/hr IVPB Q12HR [facility] Rx#: [id number] Oral 240 / 240 Output: Urine 100 / 100 Total Dialysis (HD) Output 3600 / 3600 Other: Meal Breakfast Percent of Meal Consumed 100% Stool Size Moderate Moderate Small Stool Consistency soft soft loose Stool Characteristics Mucoid Stool Color Brown Brown Brown # Urine Diapers 1 1 # Bowel Movement Diapers 1 Weight 75.2 kg Blood Glucose* 138 100 165 Hemodialysis Net Fluid Removed 3000 (mL) Patient Weight 07/25/18 23:59 Weight 75.2 kg - General Appearance General appearance: Present: well-developed, well-nourished EENT: Present: ATNC, hearing intact, vision intact Neck: Present: supple Respiratory: Present: clear Cardiology: Present: no edema, normal S1, normal S2 Dialysis Vascular Access: Arteriovenous Fistula thrill: Yes bruit: Yes Gastrointestinal: Present: normoactive bowel sounds, no tenderness, no guarding Integumentary: Present: no rash, warm and dry Neurologic: Present: alert and oriented x3 Psychiatric: Present: mood/affect appropriate, cooperative - Lab 07/25/18 05:28 07/25/18 05:28 Most recent lab results Calcium 8.1 mg/dL (8.6-10.3) L 07/25/18 05:28 Consult Discharge Plan - Plan Referrals: Bartolo Washburn MD [Primary Care Provider] -
[2018-07-25 15:05] LABS: Hepatitis B Surface Antigen Nonreactive (Nonreactive)
--- NOTE | 2018-07-25 18:37 | Internal Med Progress Note ---
Hospitalist Progress Note - Encounter Date of Encounter: 07/25/18 Time of Encounter: 11:00 - Subjective Interval History: Patient presented with back pain and fever/cough found to have right basilar pneumonia on imaging in addition to findings concerning for L3-L4 discitis/ osteomyelitis. Patient with a MAXIMUM TEMPERATURE overnight of 100.4 but without leukocytosis. Patient also with acute on chronic renal failure which is improved with hemodialysis - Exam Vitals: Temp Pulse Resp BP Pulse Ox 99.3 F 71 19 124/54 95 07/25/18 16:10 07/25/18 16:10 07/25/18 16:10 07/25/18 16:10 07/25/18 16:10 Exam: Gen.: Nonacute distress, alert and oriented 3 ENT: Mucosal membranes moist Respiratory: Lungs are clear to auscultation bilaterally without any wheezing rhonchi or rales Cardiovascular: Normal S1 and S2 regular rate rhythm no murmurs rubs or gallops Abdomen: Soft, nontender and nondistended with positive bowel sounds Extremities: No lower extremity edema Skin: Normal color - Assessment and Plan (1) HCAP (healthcare-associated pneumonia) Current Visit: Yes Status: Acute Assessment and Plan: Patient with MAXIMUM TEMPERATURE of 100.4 overnight but afebrile. Streptococcus and legionella antigen and negative; for influenza Blood cultures pending Continue day 2 of IV vancomycin/Zosyn/azithromycin (2) Back pain Current Visit: Yes Status: Acute Assessment and Plan: CT abdomen showed severe degenerative changes of L3-L4 with concerns of possible discitis osteomyelitis. Spine surgery consulted and appreciate recommendations (3) Colitis Current Visit: No Status: Acute Assessment and Plan: Resolving; Imaging improving with minimal persistent symptoms Continue to monitor (4) ESRD needing dialysis Current Visit: No Status: Chronic Assessment and Plan: On dialysis MWF. Nephrology following and appreciate recommendations (5) Insulin dependent diabetes mellitus Current Visit: No Status: Chronic Assessment and Plan: Continue Levemir 10 at bedtime and sliding scale with Accu-Cheks (6) DVT prophylaxis Current Visit: No Status: Acute Assessment and Plan: Heparin subcutaneous - Time Spent with Patient Total time spent is greater than 50% in coordination of care (as documented) at patient's floor/unit and/or counseling patient: Internal Medicine: Result - Labs CBC & Chem 7: 07/25/18 05:28 07/25/18 05:28 Labs: Short CBC 07/25/18 Range/Units 05:28 WBC 7.4 (4.3-11.1) K/mcL Hgb 8.6 L (11.5-15.4) g/dL Hct 26.6 L (35.3-44.9) % Plt Count 196 (140-400) K/mcL Neutrophils # 5.1 (1.6-8.9) K/mcL BMP 07/25/18 05:28 Sodium 136 Potassium 4.2 Chloride 102 Carbon Dioxide 28 BUN 14 Creatinine 2.65 H Glucose 128 H Calcium 8.1 L Consult Discharge Plan - Plan Referrals: Bartolo Washburn MD [Primary Care Provider] - (2) Back pain Qualifiers: Back pain location: low back pain Chronicity: unspecified Back pain laterality: midline Sciatica presence: without sciatica Qualified Code(s): M54.5 - Low back pain
[2018-07-25] MEDS: Insulin DETEMIR 100 UNIT/ML X5UNITS SQ SCH (21:36)
[2018-07-26 00:56] LABS: Hepatitis B Surface Antibody 5.38 mIU/mL
[2018-07-26] MEDS: Acetaminophen 325 MG TABLET PO PRN ×2 (01:23→19:27)
[2018-07-26] MEDS: Ondansetron ODT 4 MG TAB.RAPDIS PO PRN (01:26)
[2018-07-26] MEDS: Piperacillin/Tazobactam 3.375 GM in 0.9 % Sodium Chloride Mini Bag 100 ML IVPB SCH ×3 (05:43→19:28)
[2018-07-26] MEDS: *HR* Heparin 5,000 UNIT/ML VIAL SQ SCH ×3 (05:55→22:10)
[2018-07-26] MEDS: Sucralfate 1 GM TABLET PO SCH ×2 (05:57→19:27)
[2018-07-26 06:37] LABS: Hematocrit 27.7 % (35.3-44.9); Hemoglobin 8.6 g/dL (11.5-15.4); Mean Corpuscular Hemoglobin 30.5 pg (28.0-33.3); Mean Corpuscular Volume 98.2 fL (83.0-100.0); Mean Platelet Volume 10.4 fL (9.4-12.4); Platelet Count 210 K/mcL (140-400); Red Blood Count 2.82 M/mcL (3.82-4.97); Red Cell Distribution Width 13.9 % (11.5-14.5)
[2018-07-26 06:56] LABS: Calcium 8.2 mg/dL (8.6-10.3); Potassium 4.3 mEq/L (3.5-5.1)
[2018-07-26] MEDS: Insulin LISPRO 300 UNITS/3 ML VIAL SQ SCH ×4 (07:52→22:12)
[2018-07-26] MEDS: Psyllium 1 PACKET POWD.PACK PO SCH (09:13)
[2018-07-26] MEDS: Azithromycin 250 MG TABLET PO SCH (09:14)
[2018-07-26] MEDS: Renal Vitamin 1 CAP CAPSULE PO SCH (09:14)
[2018-07-26] MEDS: Folic Acid 1 MG TABLET PO SCH (09:14)
[2018-07-26] MEDS: Lactobacillus 1 EACH CAP.SPRINK PO SCH (09:15)
[2018-07-26] MEDS: Aspirin 81 MG TAB.CHEW PO SCH (09:16)
[2018-07-26] MEDS: *HR* OxyCODONE/APAP 5/325 TABLET PO PRN ×2 (09:17→22:10)
[2018-07-26] MEDS ORDERED: 0.9 % Sodium Chloride 250 ML IVC PRN (09:41)
[2018-07-26] MEDS ORDERED: 0.9 % Sodium Chloride 1,000 ML PRIME SCH (09:45)
--- NOTE | 2018-07-26 11:04 | Nephrology Progress Note ---
Date of Encounter: 07/26/18 Time of Encounter: 11:03 - Assessment and Plan (1) ESRD (end stage renal disease) on dialysis Current Visit: Yes Status: Acute HD planned for today Avoid nephrotoxins and renal dose all medications. Strict I/O Renal diet, if able to eat. (2) Abdominal pain Current Visit: Yes Status: Acute Per primary. Was just at [facility] for 2 weeks for colitis. Qualifiers: Abdominal location: generalized Qualified Code(s): R10.84 - Generalized abdominal pain (3) Colitis Current Visit: No Status: Acute Per primary. Subjective Principal diagnosis: abdominal pain Interval history: Pt seen and examined, doing well. Is feeling better today than yesterday. Objective - Vital Signs Vital signs: Vital Signs Temp Pulse Resp BP Pulse Ox 07/26/18 07:26 98.7 F 70 18 138/66 100 07/26/18 05:06 98.9 F 76 18 151/81 97 07/26/18 00:44 98.6 F 73 18 159/62 90 07/25/18 19:54 98.3 F 63 18 135/70 93 07/25/18 16:10 99.3 F 71 19 124/54 95 07/25/18 11:41 98.5 F 75 18 149/65 94 Intake and Output 07/25/18 07/26/18 07/26/18 23:59 07:59 15:59 Intake Total 220 / 220 Output Total 400 / 400 Balance -180 / -180 Intake: IV Fluids 100 / 100 Zosyn 3.375 GM In 0.9 % Sodium 100 / 100 Chloride (Mini-Bag +) 100 ML @ 25 mls/hr IVPB Q12HR [facility] Rx#: [id number] Oral 120 / 120 Output: Urine 400 / 400 Other: Meal Dinner Percent of Meal Consumed 100% Blood Glucose* 137 103 - General Appearance General appearance: Present: well-developed, well-nourished EENT: Present: ATNC, hearing intact, vision intact Neck: Present: supple Respiratory: Present: clear Cardiology: Present: no edema, normal S1, normal S2 Dialysis Vascular Access: Arteriovenous Fistula thrill: Yes bruit: Yes Gastrointestinal: Present: normoactive bowel sounds, no tenderness, no guarding Integumentary: Present: no rash, warm and dry Neurologic: Present: alert and oriented x3 Psychiatric: Present: mood/affect appropriate, cooperative - Lab 07/26/18 06:04 07/26/18 06:04 Most recent lab results Calcium 8.2 mg/dL (8.6-10.3) L 07/26/18 06:04 Consult Discharge Plan - Plan Referrals: Bartolo Washburn MD [Primary Care Provider] -
[2018-07-26] MEDS: Metoprolol XL (24 HR) Succ 25 MG TAB.ER.24H PO SCH (19:26)
--- NOTE | 2018-07-26 19:28 | Spine Progress Note ---
Date of Encounter: 07/26/18 Time of Encounter: 19:21 Subjective Principal diagnosis: abdominal pain, back pain Interval history: Excision 7-year-old woman with multiple medical comorbidities including lung cancer, status post radiation, chronic renal failure, recent [facility] admission requiring IV antibiotics, currently hospitalized at [facility] with pneumonia. She also complains of back pain after a fall several weeks ago. We are asked to see regarding concerning MRI findings. She denies any weakness in lower extremities or bowel or bladder symptomatology. On exam she is alert and awake afebrile vital signs stable. She is neurovascularly intact with regard to bilateral lower extremities. She fires all lower extremity motor groups with good strength. Her hips move symmetrically. There is no clonus. She has no focal tenderness to palpation in the thoracolumbar spine. MRI examination of the lumbar spine dated 07/24/2018 reveals multilevel degenerative changes. There is moderate stenosis at L3-4. There is marked degeneration of the disc at L3-4 and L4-5 as well as L5-S1. These appear to be degenerative changes and I do not favor these to be evidence of discitis osteomyelitis. Laboratory studies that are pertinent reveal elevated creatinine, ESR and CRP which may be due to known pulmonary infection. Blood cultures are no growth from July 24. Impression: 1) Multiple medical comorbidities as described. 2) pneumonia 3) lumbar degenerative disc disease and lumbar stenosis L3-4 Plan: I do not favor osteomyelitis as the cause of her infectious indices. Agree with continuing antibiotics. Await blood culture results and pulmonary treatment per the hospitalist service. If symptoms of back pain continue or worsen could consider repeat MRI of lumbar spine with and without contrast and 3 weeks to assess for any progression in endplate involvement of the lumbar spine. Objective Vital signs: Vital Signs Temp Pulse Resp BP Pulse Ox 07/26/18 18:08 98.4 F 18 121/50 07/26/18 17:20 123/55 07/26/18 17:05 103/53 07/26/18 16:50 119/79 07/26/18 16:35 122/55 07/26/18 16:20 118/50 07/26/18 16:05 119/55 07/26/18 15:50 119/53 07/26/18 15:35 128/57 07/26/18 15:20 135/48 07/26/18 15:05 132/56 07/26/18 14:50 119/57 07/26/18 14:35 142/60 07/26/18 14:20 98.5 F 16 118/59 07/26/18 11:20 97.7 F 101 18 135/79 99 07/26/18 07:26 98.7 F 70 18 138/66 100 07/26/18 05:06 98.9 F 76 18 151/81 97 07/26/18 00:44 98.6 F 73 18 159/62 90 07/25/18 19:54 98.3 F 63 18 135/70 93 Intake and Output 07/26/18 07/26/18 07/26/18 07:59 15:59 23:59 Intake Total 720 / 720 Output Total 3600 / 3600 Balance 720 / 720 -3600 / -3600 Intake: Oral 120 / 120 Intake, Rinseback and Flushes 600 / 600 Output: Urine 0 / 0 Total Dialysis (HD) Output 3600 / 3600 Other: Meal Lunch Percent of Meal Consumed 100% Stool Size Moderate Stool Consistency loose Stool Color Brown Blood Glucose* 103 186 166 Hemodialysis Net Fluid Removed 1804 3000 (mL) - Labs CBC & BMP: 07/26/18 06:04 07/26/18 06:04 Labs: Abnormal lab results RBC 2.82 M/mcL (3.82-4.97) L 07/26/18 06:04 Hgb 8.6 g/dL (11.5-15.4) L 07/26/18 06:04 Hct 27.7 % (35.3-44.9) L 07/26/18 06:04 MCHC 31.0 g/dL (31.6-35.5) L 07/26/18 06:04 ESR 67 mm/hr (0-15) H 07/24/18 07:03 Creatinine 3.31 mg/dL (0.60-1.20) H 07/26/18 06:04 Est GFR ( Amer) 17 (> 60) L 07/26/18 06:04 Est GFR (Non-Af Amer) 14 (> 60) L 07/26/18 06:04 POC Glucose 186 mg/dL (70-99) H 07/26/18 11:18 Calcium 8.2 mg/dL (8.6-10.3) L 07/26/18 06:04 Alkaline Phosphatase 105 Units/L (34-104) H 07/24/18 07:03 C-Reactive Protein 60 mg/L (Less than 10) H 07/24/18 07:03 Serum Total Protein 6.0 g/dL (6.4-8.9) L 07/24/18 07:03 Albumin 2.8 g/dL (3.5-5.7) L 07/24/18 07:03 Albumin/Globulin Ratio 0.9 (1.1-2.2) L 07/24/18 07:03 Urine Clarity Cloudy (Clear) A 07/24/18 07:00 Ur Specific [place] 1.006 (1.010-1.025) L 07/24/18 07:00 Urine Protein >=300 mg/dL (Neg-Trace) H 07/24/18 07:00 Urine Glucose (UA) 250 mg/dL (Normal) H 07/24/18 07:00 Urine Blood Moderate (Negative) H 07/24/18 07:00 Ur Leukocyte Esterase Large (Negative) H 07/24/18 07:00 Urine Microscopic RBC 15-30 per hpf (0-3) H 07/24/18 07:00 Urine Microscopic WBC TNTC per hpf (0-3) H 07/24/18 07:00 Ur Squamous Epith Cells Many per lpf (None-Few) H 07/24/18 07:00 Ur Culture Indicated? NO. (NO) A 07/24/18 07:00 Nasal Screen MRSA (PCR) Positive (Negative) A 07/25/18 07:15 Consult Discharge Plan - Plan Referrals: Bartolo Washburn MD [Primary Care Provider] -
--- NOTE | 2018-07-26 20:57 | Internal Med Progress Note ---
Hospitalist Progress Note - Encounter Date of Encounter: 07/26/18 Time of Encounter: 11:00 - Subjective Interval History: Patient presented with back pain and fever/cough found to have right basilar pneumonia on imaging in addition to findings concerning for L3-L4 discitis/ osteomyelitis. Patient still complaining of lower back pain He has been afebrile for over 24 hours and without leukocytosis - Exam Vitals: Temp Pulse Resp BP Pulse Ox 98.6 F 88 14 138/79 100 07/26/18 20:13 07/26/18 20:13 07/26/18 20:52 07/26/18 20:13 07/26/18 20:52 Exam: Gen.: Nonacute distress, alert and oriented 3 ENT: Mucosal membranes moist Respiratory: Lungs are clear to auscultation bilaterally without any wheezing rhonchi or rales Cardiovascular: Normal S1 and S2 regular rate rhythm no murmurs rubs or gallops Abdomen: Soft, nontender and nondistended with positive bowel sounds Extremities: No lower extremity edema Skin: Normal color - Assessment and Plan (1) HCAP (healthcare-associated pneumonia) Current Visit: Yes Status: Acute Assessment and Plan: Patient has not been afebrile over 24 hours without leukocytosis Streptococcus and legionella antigen and negative; for influenza Blood cultures pending Continue day 3 of IV vancomycin/Zosyn/azithromycin (2) Back pain Current Visit: Yes Status: Acute Assessment and Plan: CT abdomen showed severe degenerative changes of L3-L4 with concerns of possible discitis osteomyelitis. Spine surgery consulted and appreciate recommendations (3) Colitis Current Visit: No Status: Acute Assessment and Plan: Resolving; Imaging improving with minimal persistent symptoms Continue to monitor (4) ESRD needing dialysis Current Visit: No Status: Chronic Assessment and Plan: On dialysis MWF. Nephrology following and appreciate recommendations (5) Insulin dependent diabetes mellitus Current Visit: No Status: Chronic Assessment and Plan: Continue Levemir 10 at bedtime and sliding scale with Accu-Cheks (6) DVT prophylaxis Current Visit: No Status: Acute Assessment and Plan: Heparin subcutaneous - Time Spent with Patient Total time spent is greater than 50% in coordination of care (as documented) at patient's floor/unit and/or counseling patient: Internal Medicine: Result - Labs CBC & Chem 7: 07/27/18 03:23 07/27/18 03:23 Labs: Short CBC 07/26/18 Range/Units 06:04 WBC 9.7 (4.3-11.1) K/mcL Hgb 8.6 L (11.5-15.4) g/dL Hct 27.7 L (35.3-44.9) % Plt Count 210 (140-400) K/mcL BMP 07/26/18 06:04 Sodium 138 Potassium 4.3 Chloride 104 Carbon Dioxide 25 BUN 20 Creatinine 3.31 H Glucose 96 Calcium 8.2 L Consult Discharge Plan - Plan Referrals: Bartolo Washburn MD [Primary Care Provider] - (2) Back pain Qualifiers: Back pain location: low back pain Chronicity: unspecified Back pain laterality: midline Sciatica presence: without sciatica Qualified Code(s): M54.5 - Low back pain
[2018-07-26] MEDS: Insulin DETEMIR 100 UNIT/ML X5UNITS SQ SCH (22:10)
[2018-07-27 04:26] LABS: Hematocrit 26.1 % (35.3-44.9); Mean Corpuscular HGB Conc 30.7 g/dL (31.6-35.5); Mean Corpuscular Hemoglobin 30.3 pg (28.0-33.3); Mean Corpuscular Volume 98.9 fL (83.0-100.0); Mean Platelet Volume 10.6 fL (9.4-12.4); Platelet Count 197 K/mcL (140-400); Red Blood Count 2.64 M/mcL (3.82-4.97); Red Cell Distribution Width 13.5 % (11.5-14.5)
[2018-07-27 04:37] LABS: Calcium 8.1 mg/dL (8.6-10.3); Potassium 3.9 mEq/L (3.5-5.1)
[2018-07-27] MEDS: Sucralfate 1 GM TABLET PO SCH ×2 (06:01→18:19)
[2018-07-27] MEDS: Piperacillin/Tazobactam 3.375 GM in 0.9 % Sodium Chloride Mini Bag 100 ML IVPB SCH (06:01)
[2018-07-27] MEDS: *HR* Heparin 5,000 UNIT/ML VIAL SQ SCH ×3 (06:06→20:50)
[2018-07-27] MEDS: Insulin LISPRO 300 UNITS/3 ML VIAL SQ SCH ×4 (08:03→20:48)
[2018-07-27] MEDS: Lactobacillus 1 EACH CAP.SPRINK PO SCH (08:28)
[2018-07-27] MEDS: Azithromycin 250 MG TABLET PO SCH (08:28)
[2018-07-27] MEDS: Renal Vitamin 1 CAP CAPSULE PO SCH (08:29)
[2018-07-27] MEDS: Folic Acid 1 MG TABLET PO SCH (08:29)
[2018-07-27] MEDS: Metoprolol XL (24 HR) Succ 25 MG TAB.ER.24H PO SCH (08:29)
[2018-07-27] MEDS: Aspirin 81 MG TAB.CHEW PO SCH (08:29)
[2018-07-27] MEDS: Psyllium 1 PACKET POWD.PACK PO SCH (08:33)
[2018-07-27] MEDS: *HR* OxyCODONE/APAP 5/325 TABLET PO PRN ×2 (09:29→18:19)
--- NOTE | 2018-07-27 10:56 | Nephrology Progress Note ---
Date of Encounter: 07/27/18 Time of Encounter: 10:54 - Assessment and Plan (1) ESRD (end stage renal disease) on dialysis Current Visit: Yes Status: Acute Plan for HD tomorrow. Avoid nephrotoxins and renal dose all medications. Strict I/O Renal diet, if able to eat. (2) Abdominal pain Current Visit: Yes Status: Acute Per primary. Was just at [facility] for 2 weeks for colitis. Qualifiers: Abdominal location: generalized Qualified Code(s): R10.84 - Generalized abdominal pain (3) Colitis Current Visit: No Status: Acute Per primary. (4) Back pain Current Visit: Yes Status: Acute Continue supportive care. Qualifiers: Back pain location: low back pain Chronicity: unspecified Back pain laterality: midline Sciatica presence: without sciatica Qualified Code(s): M54.5 - Low back pain Subjective Principal diagnosis: abdominal pain, back pain Interval history: Pt seen and examined, doing well. Is feeling better today than yesterday. Still c/o of low back pain. Objective - Vital Signs Vital signs: Vital Signs Temp Pulse Resp BP Pulse Ox 07/27/18 07:13 98.4 F 66 17 131/62 98 07/27/18 04:00 98.5 F 63 16 111/46 100 07/27/18 00:12 99.1 F 67 17 126/63 100 07/26/18 20:52 14 100 07/26/18 20:13 98.6 F 88 16 138/79 95 07/26/18 18:08 98.4 F 18 121/50 07/26/18 17:20 123/55 07/26/18 17:05 103/53 07/26/18 16:50 119/79 07/26/18 16:35 122/55 07/26/18 16:20 118/50 07/26/18 16:05 119/55 07/26/18 15:50 119/53 07/26/18 15:35 128/57 07/26/18 15:20 135/48 07/26/18 15:05 132/56 07/26/18 14:50 119/57 07/26/18 14:35 142/60 07/26/18 14:20 98.5 F 16 118/59 07/26/18 11:20 97.7 F 101 18 135/79 99 Intake and Output 07/26/18 07/27/18 07/27/18 23:59 07:59 15:59 Intake Total 100 / 100 Output Total 3600 / 3600 Balance -3500 / -3500 Intake: IV Fluids 100 / 100 Zosyn 3.375 GM In 0.9 % Sodium 100 / 100 Chloride (Mini-Bag +) 100 ML @ 25 mls/hr IVPB Q12HR YUSUF Rx#: [id number] Output: Urine 0 / 0 Total Dialysis (HD) Output 3600 / 3600 Other: Stool Size Moderate Stool Consistency loose Stool Color Brown Weight 78.2 kg Blood Glucose* 356 62 Hemodialysis Net Fluid Removed 3000 (mL) Patient Weight 07/27/18 23:59 Weight 78.2 kg - General Appearance General appearance: Present: well-developed, well-nourished EENT: Present: ATNC, hearing intact, vision intact Neck: Present: supple Respiratory: Present: clear Cardiology: Present: no edema, normal S1, normal S2 Dialysis Vascular Access: Arteriovenous Fistula thrill: Yes bruit: Yes Gastrointestinal: Present: normoactive bowel sounds, no tenderness, no guarding Integumentary: Present: no rash, warm and dry Neurologic: Present: alert and oriented x3 Psychiatric: Present: mood/affect appropriate, cooperative - Lab 07/27/18 03:23 07/27/18 03:23 Most recent lab results Calcium 8.1 mg/dL (8.6-10.3) L 07/27/18 03:23 Consult Discharge Plan - Plan Referrals: Bartolo Washburn MD [Primary Care Provider] -
[2018-07-27] MEDS ORDERED: Aminoglycoside Consult 1 EACH MC ONE (16:10)
[2018-07-27] MEDS: Amoxicillin/Clavulanate 500 MG TABLET PO SCH (18:19)
--- NOTE | 2018-07-27 19:05 | Internal Med Progress Note ---
Hospitalist Progress Note - Encounter Date of Encounter: 07/27/18 Time of Encounter: 11:00 - Subjective Interval History: Patient presented with back pain and fever/cough found to have right basilar pneumonia on imaging in addition to findings concerning for L3-L4 discitis/ osteomyelitis. Patient has been afebrile and without leukocytosis; we will de-escalate antibiotics today - Exam Vitals: Temp Pulse Resp BP Pulse Ox 98.2 F 84 18 117/57 99 07/27/18 15:57 07/27/18 15:57 07/27/18 15:57 07/27/18 15:57 07/27/18 15:57 Exam: Gen.: Nonacute distress, alert and oriented 3 ENT: Mucosal membranes moist Respiratory: Lungs are clear to auscultation bilaterally without any wheezing rhonchi or rales Cardiovascular: Normal S1 and S2 regular rate rhythm no murmurs rubs or gallops Abdomen: Soft, nontender and nondistended with positive bowel sounds Extremities: No lower extremity edema Skin: Normal color - Assessment and Plan (1) HCAP (healthcare-associated pneumonia) Current Visit: Yes Status: Acute Assessment and Plan: Patient has been afebrile without leukocytosis Streptococcus and legionella antigen and negative; for influenza Blood cultures pending Will de-escalate antibiotics to Augmentin and azithromycin (2) Back pain Current Visit: Yes Status: Acute Assessment and Plan: CT abdomen showed severe degenerative changes of L3-L4 with concerns of possible discitis osteomyelitis. Spine surgery consulted and does not favor osteomyelitis Will continue to monitor (3) Colitis Current Visit: No Status: Acute Assessment and Plan: Resolving; Imaging improving with minimal persistent symptoms Continue to monitor (4) ESRD needing dialysis Current Visit: No Status: Chronic Assessment and Plan: On dialysis MWF. Nephrology following and appreciate recommendations (5) Insulin dependent diabetes mellitus Current Visit: No Status: Chronic Assessment and Plan: Continue Levemir 10 at bedtime and sliding scale with Accu-Cheks (6) DVT prophylaxis Current Visit: No Status: Acute Assessment and Plan: Heparin subcutaneous - Time Spent with Patient Total time spent is greater than 50% in coordination of care (as documented) at patient's floor/unit and/or counseling patient: Internal Medicine: Result - Labs CBC & Chem 7: 07/27/18 03:23 07/27/18 03:23 Labs: Short CBC 07/27/18 Range/Units 03:23 WBC 6.3 (4.3-11.1) K/mcL Hgb 8.0 L (11.5-15.4) g/dL Hct 26.1 L (35.3-44.9) % Plt Count 197 (140-400) K/mcL [facility] 07/27/18 03:23 Sodium 138 Potassium 3.9 Chloride 100 Carbon Dioxide 33 H BUN 14 Creatinine 2.18 H Glucose 94 Calcium 8.1 L Consult Discharge Plan - Plan Referrals: Bartolo Washburn MD [Primary Care Provider] - (2) Back pain Qualifiers: Back pain location: low back pain Chronicity: unspecified Back pain laterality: midline Sciatica presence: without sciatica Qualified Code(s): M54.5 - Low back pain
[2018-07-27] MEDS: Insulin DETEMIR 100 UNIT/ML X5UNITS SQ SCH (20:49)
[2018-07-28 04:18] LABS: Hematocrit 25.6 % (35.3-44.9); Hemoglobin 8.1 g/dL (11.5-15.4); Mean Corpuscular HGB Conc 31.6 g/dL (31.6-35.5); Mean Corpuscular Hemoglobin 30.8 pg (28.0-33.3); Mean Corpuscular Volume 97.3 fL (83.0-100.0); Mean Platelet Volume 10.4 fL (9.4-12.4); Platelet Count 216 K/mcL (140-400); Red Blood Count 2.63 M/mcL (3.82-4.97); Red Cell Distribution Width 13.4 % (11.5-14.5)
[2018-07-28 04:34] LABS: Calcium 8.3 mg/dL (8.6-10.3); Potassium 4.2 mEq/L (3.5-5.1)
[2018-07-28] MEDS: *HR* OxyCODONE/APAP 5/325 TABLET PO PRN ×2 (06:26→16:52)
[2018-07-28] MEDS: *HR* Heparin 5,000 UNIT/ML VIAL SQ SCH ×3 (06:26→21:14)
[2018-07-28] MEDS ORDERED: 0.9 % Sodium Chloride 250 ML IVC PRN (07:45)
[2018-07-28] MEDS ORDERED: 0.9 % Sodium Chloride 1,000 ML PRIME SCH (07:45)
[2018-07-28] MEDS: Insulin LISPRO 300 UNITS/3 ML VIAL SQ SCH ×4 (08:00→22:14)
[2018-07-28] MEDS ORDERED: 0.9 % Sodium Chloride 1,000 ML ONE (08:39)
[2018-07-28] MEDS: Azithromycin 250 MG TABLET PO SCH (10:10)
[2018-07-28] MEDS: Renal Vitamin 1 CAP CAPSULE PO SCH (10:10)
[2018-07-28] MEDS: Sucralfate 1 GM TABLET PO SCH ×2 (10:10→16:52)
[2018-07-28] MEDS: Lactobacillus 1 EACH CAP.SPRINK PO SCH (10:11)
[2018-07-28] MEDS: Folic Acid 1 MG TABLET PO SCH (10:11)
[2018-07-28] MEDS: Acetaminophen 325 MG TABLET PO PRN (10:11)
[2018-07-28] MEDS: Aspirin 81 MG TAB.CHEW PO SCH (10:11)
[2018-07-28] MEDS: Ondansetron ODT 4 MG TAB.RAPDIS PO PRN ×2 (10:12→16:51)
[2018-07-28] MEDS: Psyllium 1 PACKET POWD.PACK PO SCH (10:26)
--- NOTE | 2018-07-28 16:20 | Nephrology Progress Note ---
Date of Encounter: 07/28/18 Time of Encounter: 12:00 - Assessment and Plan (1) ESRD (end stage renal disease) on dialysis Current Visit: Yes Status: Acute Continue HD with UF as tolerated Continue renal diet (2) HCAP (healthcare-associated pneumonia) Current Visit: Yes Status: Acute Continue abx per primary team (3) Colitis Current Visit: No Status: Acute per primary team (4) Back pain Current Visit: Yes Status: Acute Likely arthritis per CT. Pain mgt per primary team Qualifiers: Back pain location: low back pain Chronicity: unspecified Back pain laterality: midline Sciatica presence: without sciatica Qualified Code(s): M54.5 - Low back pain (5) Anemia Current Visit: Yes Status: Acute Hgb noted at 8.1, fairly stable but goal of above 10 Will resume EPO at outpatient HD Qualifiers: Anemia type: due to chronic kidney disease Chronic kidney disease stage: on chronic dialysis Qualified Code(s): N18.6 - End stage renal disease; D63.1 - Anemia in chronic kidney disease; Z99.2 - Dependence on renal dialysis Subjective Principal diagnosis: abdominal pain, back pain Interval history: Pt seen and examined on HD with complaint of nausea and vomiting césar. Does not feel well. Objective - Vital Signs Vital signs: Vital Signs Temp Pulse Resp BP Pulse Ox 07/28/18 12:32 100.4 F H 18 123/60 07/28/18 12:05 118/51 07/28/18 11:50 120/55 07/28/18 11:35 123/52 07/28/18 11:20 113/44 07/28/18 11:05 100/40 07/28/18 10:50 117/70 07/28/18 10:35 119/84 07/28/18 10:20 152/60 07/28/18 10:05 131/63 07/28/18 09:50 132/41 07/28/18 09:35 122/46 07/28/18 09:20 134/48 07/28/18 09:05 100.7 F H 18 150/65 07/28/18 07:54 100.2 F H 79 20 172/69 99 07/28/18 05:10 100.4 F H 80 16 149/71 99 07/28/18 00:59 99.7 F H 75 15 145/64 99 09/27/18 19:44 99.6 F 74 15 129/61 100 Intake and Output 07/28/18 07/28/18 07/28/18 07:59 15:59 23:59 Intake Total 600 / 600 Output Total 3600 / 3600 Balance -3000 / -3000 Intake: Oral 0 / 0 Intake, Rinseback and Flushes 600 / 600 Output: Urine 0 / 0 Total Dialysis (HD) Output 3600 / 3600 Other: # Voids 1 Weight 77.6 kg Blood Glucose* 108 105 Hemodialysis Net Fluid Removed 3000 (mL) Patient Weight 07/28/18 23:59 Weight 77.6 kg - General Appearance General appearance: Present: chronically ill (with mild distress due to nausea) EENT: Present: ATNC, mucous membranes moist Neck: Present: no JVD, supple Respiratory: Present: clear Cardiology: Present: no edema, normal S1, normal S2 Dialysis Vascular Access: Arteriovenous Fistula thrill: Yes bruit: Yes Gastrointestinal: Present: no tenderness, no guarding Integumentary: Present: warm and dry Neurologic: Present: no focal deficit Musculoskeletal: Present: no deformities Psychiatric: Present: mood/affect appropriate - Lab 07/28/18 03:53 07/28/18 03:53 Most recent lab results Calcium 8.3 mg/dL (8.6-10.3) L 07/28/18 03:53 Consult Discharge Plan - Plan Referrals: Bartolo Washburn MD [Primary Care Provider] -
[2018-07-28] MEDS: Amoxicillin/Clavulanate 500 MG TABLET PO SCH (16:51)
[2018-07-28] MEDS: Metoprolol XL (24 HR) Succ 25 MG TAB.ER.24H PO SCH (16:51)
--- NOTE | 2018-07-28 19:57 | Internal Med Progress Note ---
Hospitalist Progress Note - Encounter Date of Encounter: 07/28/18 Time of Encounter: 11:00 - Subjective Interval History: Patient presented with back pain and fever/cough found to have right basilar pneumonia on imaging in addition to findings concerning for L3-L4 discitis/ osteomyelitis. Patient has been afebrile and without leukocytosis and antibiotics were de- escalated Patient was set to be discharged to ECF today however experienced nausea/ vomiting prior to dialysis and throughout the day She will be monitor overnight with anticipation to discharge to ECF on 07/29/18 - Exam Vitals: Temp Pulse Resp BP Pulse Ox 98.7 F 77 18 141/64 100 07/28/18 16:43 07/28/18 16:43 07/28/18 16:43 07/28/18 16:43 07/28/18 16:43 Exam: Gen.: Nonacute distress, alert and oriented 3 ENT: Mucosal membranes moist Respiratory: Lungs are clear to auscultation bilaterally without any wheezing rhonchi or rales Cardiovascular: Normal S1 and S2 regular rate rhythm no murmurs rubs or gallops Abdomen: Soft, nontender and nondistended with positive bowel sounds Extremities: No lower extremity edema Skin: Normal color - Assessment and Plan (1) HCAP (healthcare-associated pneumonia) Current Visit: Yes Status: Acute Assessment and Plan: Patient has been afebrile without leukocytosis Streptococcus and legionella antigen and negative; for influenza Blood cultures pending Continue Augmentin and azithromycin (2) Back pain Current Visit: Yes Status: Acute Assessment and Plan: CT abdomen showed severe degenerative changes of L3-L4 with concerns of possible discitis osteomyelitis. Spine surgery consulted and does not favor osteomyelitis Will continue to monitor (3) Colitis Current Visit: No Status: Acute Assessment and Plan: Resolving; Imaging improving with minimal persistent symptoms Continue to monitor (4) ESRD needing dialysis Current Visit: No Status: Chronic Assessment and Plan: On dialysis MWF. Nephrology following and appreciate recommendations (5) Insulin dependent diabetes mellitus Current Visit: No Status: Chronic Assessment and Plan: Continue Levemir 10 at bedtime and sliding scale with Accu-Cheks (6) DVT prophylaxis Current Visit: No Status: Acute Assessment and Plan: Heparin subcutaneous - Time Spent with Patient Total time spent is greater than 50% in coordination of care (as documented) at patient's floor/unit and/or counseling patient: Internal Medicine: Result - Labs CBC & Chem 7: 07/29/18 05:38 07/29/18 05:38 Labs: Short CBC 07/28/18 Range/Units 03:53 WBC 8.5 (4.3-11.1) K/mcL Hgb 8.1 L (11.5-15.4) g/dL Hct 25.6 L (35.3-44.9) % Plt Count 216 (140-400) K/mcL [facility] 07/28/18 03:53 Sodium 135 L Potassium 4.2 Chloride 98 Carbon Dioxide 32 H BUN 23 Creatinine 3.55 H Glucose 113 H Calcium 8.3 L Consult Discharge Plan - Plan Referrals: Bartolo Washburn MD [Primary Care Provider] - (2) Back pain Qualifiers: Back pain location: low back pain Chronicity: unspecified Back pain laterality: midline Sciatica presence: without sciatica Qualified Code(s): M54.5 - Low back pain
[2018-07-28] MEDS: Insulin DETEMIR 100 UNIT/ML X5UNITS SQ SCH (22:13)
[2018-07-29] MEDS: *HR* Heparin 5,000 UNIT/ML VIAL SQ SCH ×3 (06:08→22:31)
[2018-07-29 06:11] LABS: Hematocrit 25.6 % (35.3-44.9); Hemoglobin 8.3 g/dL (11.5-15.4); Mean Corpuscular HGB Conc 32.4 g/dL (31.6-35.5); Mean Corpuscular Hemoglobin 31.4 pg (28.0-33.3); Mean Platelet Volume 10.3 fL (9.4-12.4); Platelet Count 249 K/mcL (140-400); Red Blood Count 2.64 M/mcL (3.82-4.97); Red Cell Distribution Width 13.2 % (11.5-14.5)
[2018-07-29 06:25] LABS: Calcium 8.7 mg/dL (8.6-10.3); Potassium 4.3 mEq/L (3.5-5.1)
[2018-07-29] MEDS: Insulin LISPRO 300 UNITS/3 ML VIAL SQ SCH ×4 (08:49→22:31)
[2018-07-29] MEDS: Ondansetron ODT 4 MG TAB.RAPDIS PO PRN ×2 (08:49→18:26)
--- NOTE | 2018-07-29 10:35 | Nephrology Progress Note ---
Date of Encounter: 07/29/18 Time of Encounter: 10:30 - Assessment and Plan (1) ESRD (end stage renal disease) on dialysis Current Visit: Yes Status: Acute s/p HD yesterday, next HD planned for tuesday if still hosptalized Lytes stable Net HD UF was 3000cc (2) HCAP (healthcare-associated pneumonia) Current Visit: Yes Status: Acute Continue abx per primary team (3) Colitis Current Visit: No Status: Acute per primary team (4) Back pain Current Visit: Yes Status: Acute Likely arthritis per CT. Pain mgt per primary team Qualifiers: Back pain location: low back pain Chronicity: unspecified Back pain laterality: midline Sciatica presence: without sciatica Qualified Code(s): M54.5 - Low back pain (5) Anemia Current Visit: Yes Status: Acute Hgb noted at 8.3, fairly stable but goal of above 10 Will resume EPO at outpatient HD Qualifiers: Anemia type: due to chronic kidney disease Chronic kidney disease stage: on chronic dialysis Qualified Code(s): N18.6 - End stage renal disease; D63.1 - Anemia in chronic kidney disease; Z99.2 - Dependence on renal dialysis Subjective Principal diagnosis: abdominal pain, back pain Interval history: Pt seen and examined s/p HD yesterday Objective - Vital Signs Vital signs: Vital Signs Temp Pulse Resp BP Pulse Ox 07/29/18 07:25 99.5 F 85 16 169/64 90 07/29/18 04:21 98.9 F 90 18 148/64 95 07/29/18 00:37 99.1 F 76 17 131/51 92 07/28/18 21:38 99.3 F 71 17 130/65 100 07/28/18 16:43 98.7 F 77 18 141/64 100 07/28/18 12:32 100.4 F H 18 123/60 07/28/18 12:05 118/51 07/28/18 11:50 120/55 07/28/18 11:35 123/52 07/28/18 11:20 113/44 07/28/18 11:05 100/40 07/28/18 10:50 117/70 07/28/18 10:35 119/84 Intake and Output 07/28/18 07/29/18 07/29/18 23:59 07:59 15:59 Other: Stool Size Large Stool Consistency soft # Voids 1 # Bowel Movements 1 Blood Glucose* 134 120 - Lab 07/29/18 05:38 07/29/18 05:38 Most recent lab results Calcium 8.7 mg/dL (8.6-10.3) 07/29/18 05:38 Consult Discharge Plan - Plan Referrals: Bartolo Washburn MD [Primary Care Provider] -
[2018-07-29] MEDS: Sucralfate 1 GM TABLET PO SCH ×2 (14:14→18:16)
[2018-07-29] MEDS: Aspirin 81 MG TAB.CHEW PO SCH (14:14)
[2018-07-29] MEDS: Renal Vitamin 1 CAP CAPSULE PO SCH (14:15)
[2018-07-29] MEDS: Folic Acid 1 MG TABLET PO SCH (14:15)
[2018-07-29] MEDS: Lactobacillus 1 EACH CAP.SPRINK PO SCH (14:15)
[2018-07-29] MEDS: Metoprolol XL (24 HR) Succ 25 MG TAB.ER.24H PO SCH (14:15)
[2018-07-29] MEDS: Psyllium 1 PACKET POWD.PACK PO SCH (14:15)
--- NOTE | 2018-07-29 18:19 | Internal Med Progress Note ---
Hospitalist Progress Note - Encounter Date of Encounter: 07/29/18 Time of Encounter: 11:00 - Subjective Interval History: Patient presented with back pain and fever/cough found to have right basilar pneumonia on imaging in addition to findings concerning for L3-L4 discitis/ osteomyelitis. Patient has been afebrile and without leukocytosis and antibiotics were de- escalated Patient was set to be discharged to ECF today however no improvement with nausea /vomiting; acute abdominal series pending She will be monitor overnight with anticipation to discharge to ECF on 07/29/18 - Exam Vitals: Temp Pulse Resp BP Pulse Ox 98.8 F 86 16 156/68 96 07/29/18 16:34 07/29/18 16:34 07/29/18 16:34 07/29/18 16:34 07/29/18 16:34 Exam: Gen.: Nonacute distress, alert and oriented 3 ENT: Mucosal membranes moist Respiratory: Lungs are clear to auscultation bilaterally without any wheezing rhonchi or rales Cardiovascular: Normal S1 and S2 regular rate rhythm no murmurs rubs or gallops Abdomen: Soft, nontender and nondistended with positive bowel sounds Extremities: No lower extremity edema Skin: Normal color - Assessment and Plan (1) Nausea and vomiting Current Visit: No Status: Resolved Assessment and Plan: Patient with a 2 day history of nonproductive nausea and vomiting with unclear etiology She does have a history of colitis with follow-up with GI in 2 weeks for repeat colonoscopy. Acute abdominal series pending Continue antiemetics (2) HCAP (healthcare-associated pneumonia) Current Visit: Yes Status: Acute Assessment and Plan: Patient has been afebrile without leukocytosis Streptococcus and legionella antigen and negative; for influenza Blood cultures pending Continue Augmentin and azithromycin (3) Back pain Current Visit: Yes Status: Acute Assessment and Plan: CT abdomen showed severe degenerative changes of L3-L4 with concerns of possible discitis osteomyelitis. Spine surgery consulted and does not favor osteomyelitis Will continue to monitor (4) Colitis Current Visit: No Status: Acute Assessment and Plan: Resolving; Imaging improving with minimal persistent symptoms Continue to monitor (5) ESRD needing dialysis Current Visit: No Status: Chronic Assessment and Plan: On dialysis MWF. Nephrology following and appreciate recommendations (6) Insulin dependent diabetes mellitus Current Visit: No Status: Chronic Assessment and Plan: Continue Levemir 10 at bedtime and sliding scale with Accu-Cheks (7) DVT prophylaxis Current Visit: No Status: Acute Assessment and Plan: Heparin subcutaneous - Time Spent with Patient Total time spent is greater than 50% in coordination of care (as documented) at patient's floor/unit and/or counseling patient: Internal Medicine: Result - Labs CBC & Chem 7: 07/29/18 05:38 07/29/18 05:38 Labs: Short CBC 07/29/18 Range/Units 05:38 WBC 7.9 (4.3-11.1) K/mcL Hgb 8.3 L (11.5-15.4) g/dL Hct 25.6 L (35.3-44.9) % Plt Count 249 (140-400) K/mcL BMP 07/29/18 05:38 Sodium 136 Potassium 4.3 Chloride 100 Carbon Dioxide 29 BUN 15 Creatinine 2.66 H Glucose 114 H Calcium 8.7 Consult Discharge Plan - Plan Referrals: Bartolo Washburn MD [Primary Care Provider] - (1) Nausea and vomiting Qualifiers: Vomiting type: unspecified Vomiting Intractability: unspecified Qualified Code(s): R11.2 - Nausea with vomiting, unspecified (3) Back pain Qualifiers: Back pain location: low back pain Chronicity: unspecified Back pain laterality: midline Sciatica presence: without sciatica Qualified Code(s): M54.5 - Low back pain
[2018-07-29] MEDS: Amoxicillin/Clavulanate 500 MG TABLET PO SCH (18:26)
[2018-07-29] MEDS: *HR* OxyCODONE/APAP 5/325 TABLET PO PRN (18:27)
[2018-07-29] MEDS: Insulin DETEMIR 100 UNIT/ML X5UNITS SQ SCH (22:31)
[2018-07-29] MEDS: Acetaminophen 325 MG TABLET PO PRN (23:42)
[2018-07-30 04:04] LABS: Hematocrit 26.1 % (35.3-44.9); Hemoglobin 8.3 g/dL (11.5-15.4); Mean Corpuscular HGB Conc 31.8 g/dL (31.6-35.5); Mean Corpuscular Hemoglobin 30.9 pg (28.0-33.3); Mean Platelet Volume 9.8 fL (9.4-12.4); Platelet Count 247 K/mcL (140-400); Red Blood Count 2.69 M/mcL (3.82-4.97); Red Cell Distribution Width 12.8 % (11.5-14.5)
[2018-07-30 04:23] LABS: Calcium 8.5 mg/dL (8.6-10.3); Potassium 4.2 mEq/L (3.5-5.1)
[2018-07-30] MEDS: *HR* OxyCODONE/APAP 5/325 TABLET PO PRN (05:49)
[2018-07-30] MEDS: *HR* Heparin 5,000 UNIT/ML VIAL SQ SCH ×2 (05:50→14:04)
[2018-07-30] MEDS: Aspirin 81 MG TAB.CHEW PO SCH (09:35)
[2018-07-30] MEDS: Lactobacillus 1 EACH CAP.SPRINK PO SCH (09:36)
[2018-07-30] MEDS: Sucralfate 1 GM TABLET PO SCH (09:36)
[2018-07-30] MEDS: Renal Vitamin 1 CAP CAPSULE PO SCH (09:37)
[2018-07-30] MEDS: Folic Acid 1 MG TABLET PO SCH (09:38)
[2018-07-30] MEDS: Psyllium 1 PACKET POWD.PACK PO SCH (09:58)
[2018-07-30] MEDS: Insulin LISPRO 300 UNITS/3 ML VIAL SQ SCH ×2 (09:58→12:59)
[2018-07-30] MEDS: Metoprolol XL (24 HR) Succ 25 MG TAB.ER.24H PO SCH (10:12)
--- NOTE | 2018-07-30 13:33 | Discharge Summary ---
- NOTES TO OUTPATIENT PROVIDER Notes to Outpatient Provider: none Orders not resulted at time of discharge: Pending orders 07/24/18 15:37 Sputum Culture [Culture,Sputum with Gram Stain] [] Routine 07/31/18 04:00 BMP [Basic Metabolic Panel] AM 0400 Complete Blood Count w/o Diff [HEME] AM 0400 Date of Encounter: 07/30/18 Time of Encounter: 11:00 - Discharge Diagnosis (1) Nausea and vomiting Priority: Secondary Status: Resolved Qualifiers: Vomiting type: unspecified Vomiting Intractability: unspecified Qualified Code(s): R11.2 - Nausea with vomiting, unspecified (2) HCAP (healthcare-associated pneumonia) Priority: Primary Status: Acute (3) Back pain Priority: Secondary Status: Acute Qualifiers: Back pain location: low back pain Chronicity: unspecified Back pain laterality: midline Sciatica presence: without sciatica Qualified Code(s): M54.5 - Low back pain (4) Colitis Priority: Secondary Status: Acute (5) ESRD needing dialysis Priority: Secondary Status: Chronic (6) Insulin dependent diabetes mellitus Priority: Secondary Status: Chronic Hospital course: Patient is a 67-year-old female with past medical history significant for hypertension, diabetes, lung cancer status post radiation, end-stage renal disease on dialysis who was recently treated with IV antibiotics for colitis and UTI's treated with the IV antibiotics coming complain of abdominal pain, cough and malaise. She was discharged from [facility] were 2 days ago after receiving the IV antibiotics. She was worried about worsening of her colitis. Patient had occasional episodes of hypoxia while in ER. Her temperature was noted to be 100.6. She had Elevated CRP. Chest x-ray revealed right basilar pneumonia with small parapneumonic effusion. Patient had a CT scan of the abdomen which showed improved colitis, ureteral stenting placed, small right pleural effusion and findings concerning with L3-L4 discitis osteomyelitis. She was started on IV vancomycin, Zosyn, azithromycin for treatment of HCAP. She received 1 L of normal saline Dr. Boyd was contacted with the findings of the CAT scan who recommended MRI. Patient was admitted for treatment of hospital-acquired pneumonia and to evaluate and treat if needed for osteomyelitis. During patients hospital stay she was treated with a 7 day course of antibiotics for pneumonia. Dr. Kimberly consulted and did not suspect patient had L3-L4 discitis osteomyelitis. Patient continuing hemodialysis for end-stage renal disease per nephrology recommendations. Patient is medically stable to be discharged back to ECF. - Time Spent with Patient Total time spent providing and/or coordinating discharge services: Less than 30 minutes - Discharge Medications Prescriptions: OxyCODONE/APAP 5/325 [Percocet 5/325 MG] 1 tab PO TID PRN 3 Days #9 tablet PRN Reason: Pain Home Medications: Folic Acid 1 mg PO DAILY 07/10/15 [History] Levothyroxine [Synthroid] 50 mcg PO QAM 07/10/15 [History] Pantoprazole Sodium [Protonix] 40 mg PO BID 07/10/15 [History] Solifenacin Succinate [Vesicare] 10 mg PO DAILY 07/10/15 [History] Aspirin 81 mg PO DAILY #30 tab.chew 02/18/16 [Rx] Metoprolol XL (24 HR) Succ [Toprol Xl] 12.5 mg PO DAILY #30 tab.er.24h 02/18/16 [Rx] Docusate [Colace] 100 mg PO BID 10/14/16 [History] Albuterol Sulfate [Proair Hfa] 2 puff IH Q4H PRN 03/17/17 [History] Atorvastatin [Lipitor] 40 mg PO HS 03/17/17 [History] Clopidogrel [Plavix] 75 mg PO DAILY 05/09/17 [History] Ondansetron ODT [Zofran ODT] 4 mg PO Q8H PRN 05/09/17 [History] Sucralfate [Carafate] 1 gm PO 0730,1630 05/09/17 [History] Diclofenac Sodium 1 appl TP DAILY PRN 03/01/18 [History] Folic Acid/Vit Bcomp,C [Renal-Elizabeth Tablet] 0.8 mg PO DAILY 03/01/18 [History] Furosemide [Lasix] 20 mg PO DAILY 03/01/18 [History] Amitriptyline [Elavil] 25 mg PO HS 03/26/18 [History] Cyclobenzaprine [Flexeril] 10 mg PO QAM 03/26/18 [History] DULoxetine [Cymbalta] 30 mg PO DAILY 03/26/18 [History] Ergocalciferol (VITAMIN D2) [Drisdol] 50,000 unit PO MO 03/26/18 [History] Insulin ASPART [NovoLOG] 10 unit SQ BID 03/26/18 [History] Insulin DETEMIR [Levemir] 12 - 14 unit SQ BID 03/26/18 [History] Tamsulosin [Flomax] 0.4 mg PO DAILY 03/26/18 [History] Zolpidem [Ambien] 5 mg PO HS 03/26/18 [History] Lactobacillus Combination No.8 [Adult Probiotic] 1 cap PO DAILY 05/04/18 [ History] Pramipexole Di-HCl [Pramipexole Dihydrochloride] 0.125 mg PO HS 05/04/18 [ History] Promethazine [Phenergan] 25 mg PO TID PRN 05/04/18 [History] Psyllium Husk [Daily Fiber] 0.52 gm PO DAILY 05/04/18 [History] SUMAtriptan Succinate [Imitrex] 6 mg SQ BID PRN 05/04/18 [History] Lisinopril [Zestril] 10 mg PO DAILY 06/26/18 [History] OxyCODONE/APAP 5/325 [Percocet 5/325 MG] 1 tab PO TID PRN 3 Days #9 tablet 07/30 [Rx] Allergies/Adverse Reactions: 3 Allergy/AdvReac Type Severity Reaction Status Date / Time adhesive tape Allergy Redness of Verified 07/15/18 11:57 Skin latex Allergy Swelling Verified 07/15/18 11:57 of Lip/Tongue/Throat Sulfa (Sulfonamide Allergy Rash Verified 07/15/18 11:57 Antibiotics) Date of admission: 07/24/18 09:12 Primary care physician: Bartolo Washburn MD Consults: 07/24/18 10:34 Consult to Lease Examiner [CONS] Routine Reason for SW Consult: Currently at [facility] assisted living 07/24/18 14:12 Consult to Nephrology [CONS] Routine Consulting Provider: [facility] Julianne/FLORENTIN/KIERRA/PEACE Reason for Consult: ESRD Per Dr. Mendoza. Time Notified: 14:12 Call Completed: No 07/24/18 15:00 Consult to Dialysis [CONS] ONCE 07/25/18 18:31 Consult to Orthopedic Surgery [CONS] Routine Consulting Provider: [facility] Reason for Consult: Dr. Boyd Call Completed: Yes 07/26/18 09:45 Consult to Dialysis [CONS] ONCE 07/27/18 07:59 Consult to Physical Therapy [CONS] Routine Comment: Evaluate, develop and implement POC Reason for Consult: eval for poss ecf Does patient have active BEDREST order?: No Is patient medically & hemodynamically stable?: Yes 07/28/18 07:45 Consult to Dialysis [CONS] ONCE - Constitutional Vitals: Temp Pulse Resp BP Pulse Ox 99.4 F 71 18 126/61 94 07/30/18 12:28 07/30/18 12:28 07/30/18 12:28 07/30/18 12:28 07/30/18 12:28 General appearance: Present: A&O X 3, no acute distress Exam: Gen.: Nonacute distress, alert and oriented 3 Abdomen: Soft, nontender and nondistended with positive bowel sounds Skin: Normal color - Patient Status Disposition: Transfer SNF Condition: Fair - Discharge Instructions Follow Up With: Bartolo Washburn MD [Primary Care Provider] - (Web-request completed 07/30/2018)
--- NOTE | 2018-07-30 13:34 | Physician Discharge Referral ---
ExtendedCare Referral Info Institutional Level of Care: Skilled - Diagnosis (1) Nausea and vomiting Status: Resolved (2) HCAP (healthcare-associated pneumonia) Status: Acute (3) Back pain Status: Acute (4) Colitis Status: Acute (5) ESRD needing dialysis Status: Chronic (6) Insulin dependent diabetes mellitus Status: Chronic (7) DVT prophylaxis Status: Acute - Transfer Medications Prescriptions: OxyCODONE/APAP 5/325 [Percocet 5/325 MG] 1 tab PO TID PRN 3 Days #9 tablet PRN Reason: Pain Home Medications: Folic Acid 1 mg PO DAILY 07/10/15 [History] Levothyroxine [Synthroid] 50 mcg PO QAM 07/10/15 [History] Pantoprazole Sodium [Protonix] 40 mg PO BID 07/10/15 [History] Solifenacin Succinate [Vesicare] 10 mg PO DAILY 07/10/15 [History] Aspirin 81 mg PO DAILY #30 tab.chew 02/18/16 [Rx] Metoprolol XL (24 HR) Succ [Toprol Xl] 12.5 mg PO DAILY #30 tab.er.24h 02/18/16 [Rx] Docusate [Colace] 100 mg PO BID 10/14/16 [History] Albuterol Sulfate [Proair Hfa] 2 puff IH Q4H PRN 03/17/17 [History] Atorvastatin [Lipitor] 40 mg PO HS 03/17/17 [History] Clopidogrel [Plavix] 75 mg PO DAILY 05/09/17 [History] Ondansetron ODT [Zofran ODT] 4 mg PO Q8H PRN 05/09/17 [History] Sucralfate [Carafate] 1 gm PO 0730,1630 05/09/17 [History] Diclofenac Sodium 1 appl TP DAILY PRN 03/01/18 [History] Folic Acid/Vit Bcomp,C [Renal-Elizabeth Tablet] 0.8 mg PO DAILY 03/01/18 [History] Furosemide [Lasix] 20 mg PO DAILY 03/01/18 [History] Amitriptyline [Elavil] 25 mg PO HS 03/26/18 [History] Cyclobenzaprine [Flexeril] 10 mg PO QAM 03/26/18 [History] DULoxetine [Cymbalta] 30 mg PO DAILY 03/26/18 [History] Ergocalciferol (VITAMIN D2) [Drisdol] 50,000 unit PO MO 03/26/18 [History] Insulin ASPART [NovoLOG] 10 unit SQ BID 03/26/18 [History] Insulin DETEMIR [Levemir] 12 - 14 unit SQ BID 03/26/18 [History] Tamsulosin [Flomax] 0.4 mg PO DAILY 03/26/18 [History] Zolpidem [Ambien] 5 mg PO HS 03/26/18 [History] Lactobacillus Combination No.8 [Adult Probiotic] 1 cap PO DAILY 05/04/18 [ History] Pramipexole Di-HCl [Pramipexole Dihydrochloride] 0.125 mg PO HS 05/04/18 [ History] Promethazine [Phenergan] 25 mg PO TID PRN 05/04/18 [History] Psyllium Husk [Daily Fiber] 0.52 gm PO DAILY 05/04/18 [History] SUMAtriptan Succinate [Imitrex] 6 mg SQ BID PRN 05/04/18 [History] Lisinopril [Zestril] 10 mg PO DAILY 06/26/18 [History] OxyCODONE/APAP 5/325 [Percocet 5/325 MG] 1 tab PO TID PRN 3 Days #9 tablet 07/30 [Rx] Allergies/Adverse Reactions: 3 Allergy/AdvReac Type Severity Reaction Status Date / Time adhesive tape Allergy Redness of Verified 07/15/18 11:57 Skin latex Allergy Swelling Verified 07/15/18 11:57 of Lip/Tongue/Throat Sulfa (Sulfonamide Allergy Rash Verified 07/15/18 11:57 Antibiotics) - Respiratory Orders Smoking Cessation: Smoking cessation has been advised. For more information, call the [place] Tobacco Quit Line at 4-856-YSGS-NOW. CERTIFICATION: I certify that the transfer of the above named patient to an Extended Care Facility is necessary for the continuing treatment of the diagnosis listed. The above information is true and accurate reflection of patient's current condition. Confidential - Redisclosure prohibited without a patient's written consent.
[2018-07-30 15:18] VITALS: BP 144/62
== END 2018-07-30 16:11 | DRG 193 ==
LOC: EMEROOARM 05:37 → 2ANU 05:37 → SUATTDRO 09:12 → 2ANU 10:08
PROVIDERS: ADMIT Internal Medicine; ATTEND Hospitalist

== ENCOUNTER 2018-07-30 21:49 | Inpatient (IN) ==
[2018-07-30] MEDS ORDERED: Isovue-370 500 ML INFUS..BTL IV ONE (22:23)
--- NOTE | 2018-07-30 22:54 | Emergency Department Note ---
Disposition Clinical Impression: Colitis Fever Qualifiers: Fever type: unspecified Qualified Code(s): R50.9 - Fever, unspecified Disposition: Admitted As Inpatient Condition: Fair Referrals: Bartolo Washburn MD [Primary Care Provider] - Forms: ED Satisfaction Letter Time of Disposition: 01:25 General Adult HPI - General Chief complaint: ED Fever Stated complaint: fever Time Seen by Provider: 07/30/18 21:55 Source: patient, EMS Limitations: no limitations - History of Present Illness HPI Narrative: This is a 67-year-old female who was discharged from this hospital earlier today to a rehabilitation facility, who was found to be febrile at the rehabilitation facility. She states that she has been treated for diverticulitis for the last 4 weeks, and states that she still has abdominal pain she never had a cough or had a minimal cough. She reportedly had a fever at the long term over 101 Fahrenheit. Pain Scale: 10 - Related Data Home Medications Medication Instructions Recorded Confirmed Folic Acid 1 mg PO DAILY 07/10/15 07/24/18 Levothyroxine [Synthroid] 50 mcg PO QAM 07/10/15 07/24/18 Pantoprazole Sodium [Protonix] 40 mg PO BID 07/10/15 07/24/18 Solifenacin Succinate [Vesicare] 10 mg PO DAILY 07/10/15 07/24/18 Docusate [Colace] 100 mg PO BID 10/14/16 07/24/18 Albuterol Sulfate [Proair Hfa] 2 puff IH Q4H PRN 03/17/17 07/24/18 Atorvastatin [Lipitor] 40 mg PO HS 03/17/17 07/24/18 Clopidogrel [Plavix] 75 mg PO DAILY 05/09/17 07/24/18 Ondansetron ODT [Zofran ODT] 4 mg PO Q8H PRN 05/09/17 07/24/18 Sucralfate [Carafate] 1 gm PO 0730,1630 05/09/17 07/24/18 Diclofenac Sodium 1 appl TP DAILY PRN 03/01/18 07/24/18 Folic Acid/Vit Bcomp,C [Renal-Elizabeth 0.8 mg PO DAILY 03/01/18 07/24/18 Tablet] Furosemide [Lasix] 20 mg PO DAILY 03/01/18 07/24/18 Amitriptyline [Elavil] 25 mg PO HS 03/26/18 07/24/18 Cyclobenzaprine [Flexeril] 10 mg PO QAM 03/26/18 07/24/18 DULoxetine [Cymbalta] 30 mg PO DAILY 03/26/18 07/24/18 Ergocalciferol (VITAMIN D2) 50,000 unit PO MO 03/26/18 07/24/18 [Drisdol] Insulin ASPART [NovoLOG] 10 unit SQ BID 03/26/18 07/24/18 Insulin DETEMIR [Levemir] 12 - 14 unit SQ BID 03/26/18 07/24/18 Tamsulosin [Flomax] 0.4 mg PO DAILY 03/26/18 07/24/18 Zolpidem [Ambien] 5 mg PO HS 03/26/18 07/24/18 Lactobacillus Combination No.8 1 cap PO DAILY 05/04/18 07/24/18 [Adult Probiotic] Pramipexole Di-HCl [Pramipexole 0.125 mg PO HS 05/04/18 07/24/18 Dihydrochloride] Promethazine [Phenergan] 25 mg PO TID PRN 05/04/18 07/24/18 Psyllium Husk [Daily Fiber] 0.52 gm PO DAILY 05/04/18 07/24/18 SUMAtriptan Succinate [Imitrex] 6 mg SQ BID PRN 05/04/18 07/24/18 Lisinopril [Zestril] 10 mg PO DAILY 06/26/18 07/24/18 Previous Rx's Medication Instructions Recorded Aspirin 81 mg PO DAILY #30 tab.chew 02/18/16 Metoprolol XL (24 HR) Succ [Toprol 12.5 mg PO DAILY #30 tab.er.24h 02/18/16 Xl] OxyCODONE/APAP 5/325 [Percocet 1 tab PO TID PRN 3 Days #9 tablet 07/30/18 5/325 MG] Allergies Allergy/AdvReac Type Severity Reaction Status Date / Time adhesive tape Allergy Redness of Verified 07/15/18 11:57 Skin latex Allergy Swelling Verified 07/15/18 11:57 of Lip/Tongue/Throat Sulfa (Sulfonamide Allergy Rash Verified 07/15/18 11:57 Antibiotics) All systems ED: reviewed and negative except as stated. 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 - Social History Smoking Status: Former smoker Smokeless Tobacco Status: No Alcohol use: Reports: none Drug use: Reports: none Physical Exam - General Limitations: no limitations General appearance: alert, in no apparent distress - Head Head exam: atraumatic, normocephalic, normal inspection - Eye Eye exam: Present: normal appearance, PERRL, EOMI - Chest Chest inspection: Present: normal inspection, symmetric chest wall rise - Respiratory Respiratory exam: Present: normal lung sounds bilaterally - Cardiovascular Cardiovascular exam: Present: regular rate, normal rhythm, normal heart sounds - Abdominal Exam Abdominal exam: Present: soft, tenderness Abdominal tenderness: Present: LLQ (There is significant left lower quadrant tenderness with diffuse abdominal tenderness otherwise) - Extremities Exam Extremities exam: Present: normal inspection, full ROM. Absent: tenderness, pedal edema - Back Exam Back exam: Present: CVA tenderness (R), CVA tenderness (L) - Neurological Exam Neurological exam: Present: alert, oriented X3 - Psychiatric Psychiatric exam: Present: normal affect, normal mood - Skin Skin exam: Present: warm, dry, intact, normal color Course Course Narrative: This is a 67-year-old female with significant left lower quadrant pain, concerning for serious diverticulitis. Vital Signs Temperature 101.5 F H 07/30/18 21:51 Pulse Rate 68 07/30/18 21:51 Respiratory Rate 16 07/30/18 21:51 Blood Pressure 148/70 07/30/18 21:51 O2 Sat by Pulse Oximetry 100 07/30/18 21:51 Temperature 101.5 F H 07/30/18 21:51 Pulse Rate 66 07/30/18 23:58 Respiratory Rate 18 07/30/18 23:58 Blood Pressure 152/55 07/30/18 23:58 O2 Sat by Pulse Oximetry 100 07/30/18 23:58 Oxygen Delivery Oxygen Delivery Room Air Medical Decision Making - MDM Narrative Medical decision making narrative: This is a 67-year-old female who appears to have either persistent colitis or colon cancer causing her left lower quadrant pain. Since she has already been treated with vancomycin and Zosyn for pneumonia, having been discharged less than 24 hours prior to returning to the emergency department, Zosyn does not appear to to be effective for colitis if this is colitis. For this reason, I ordered metronidazole and ciprofloxacin for an alternative treatment for colitis I discussed her case with the on-call hospitalist, who accepted her for admission - Lab Data Lab results reviewed: Yes I reviewed the patient's lab results. Lab results narrative: CBC shows anemia at 8.5 and 25.7 CMP showed elevated BUNs at 29 and creatinine at 3.88 UA showed no bacteria too many white cells to count and moderate leuk esterase Result diagrams: 07/30/18 23:04 07/30/18 23:04 Lab Results 07/30/18 07/30/18 07/30/18 Range/Units 22:45 23:04 23:04 WBC 7.3 (4.3-11.1) K/mcL RBC 2.72 L (3.82-4.97) M/mcL Hgb 8.5 L (11.5-15.4) g/dL Hct 25.7 L (35.3-44.9) % MCV 94.5 (83.0-100.0) fL MCH 31.3 (28.0-33.3) pg MCHC 33.1 (31.6-35.5) g/dL RDW 12.9 (11.5-14.5) % Plt Count 269 (140-400) K/mcL MPV 10.4 (9.4-12.4) fL Immature Gran % 0.3 (0-4) % Seg Neutrophils % 64.1 % Lymphocytes % 22.9 % Monocytes % 12.0 % Eosinophils % 0.3 % Basophils % 0.4 % Neutrophils # 4.7 (1.6-8.9) K/mcL Lymphocytes # 1.7 (0.6-4.6) K/mcL Monocytes # 0.9 (0.0-1.3) K/mcL Eosinophils # 0.0 (0.0-0.6) K/mcL Basophils # 0.0 (0.0-0.2) K/mcL Sodium 131 L (136-145) mEq/L Potassium 3.7 (3.5-5.1) mEq/L Chloride 97 L (98-107) mEq/L Carbon Dioxide 26 (23-29) mEq/L BUN 29 H (8-23) mg/dL Creatinine 3.88 H (0.60-1.20) mg/dL Est GFR ( Amer) 14 L (> 60) Est GFR (Non-Af Amer) 12 L (> 60) BUN/Creatinine Ratio 7 (6-26) Glucose 225 H (70-105) mg/dL Calculated Osmolality 285 (280-300) Calcium 8.5 L (8.6-10.3) mg/dL Total Bilirubin 0.4 (0.3-1.0) mg/dL Direct Bilirubin 0.1 (0.0-0.2) mg/dL Indirect Bilirubin 0.3 (0.0-1.2) mg/dL AST 19 (13-39) Units/L ALT 12 (7-52) Units/L Alkaline Phosphatase 84 (34-104) Units/L Serum Total Protein 6.5 (6.4-8.9) g/dL Albumin 2.8 L (3.5-5.7) g/dL Globulin 3.7 H (2.4-3.5) g/dL Albumin/Globulin Ratio 0.8 L (1.1-2.2) Urine Color Yellow (Yellow) Urine Clarity Turbid A (Clear) Urine pH 8.0 (5.0-8.0) pH Units Ur Specific Girard 1.016 (1.010-1.025) Urine Protein >=300 H (Neg-Trace) mg/dL Urine Glucose (UA) 250 H (Normal) mg/dL Urine Ketones Negative (Negative) mg/dL Urine Blood Moderate H (Negative) Urine Nitrite Negative (Negative) Urine Bilirubin Negative (Negative) Urine Urobilinogen Normal (Normal) mg/dL Ur Leukocyte Esterase Moderate H (Negative) Urine Microscopic RBC 0-3 (0-3) per hpf Urine Microscopic WBC TNTC H (0-3) per hpf Ur Squamous Epith Cells Many H (None-Few) per lpf Urine Bacteria None Seen (None-Few) per hpf Hyaline Casts None Seen (None-Few) per lpf Urine Yeast Few H (None Seen) per hpf Ur Culture Indicated? NO. A (NO) - Radiology Data Radiology results reviewed: Yes I reviewed the patient's radiology results. CT abdomen/pelvis showed persistent colitis with a concern for possible colon cancer rather than infection Critical Care Time Critical Care Time: No
[2018-07-30 23:13] LABS: Bilirubin,Urine Negative (Negative); Blood,Urine Moderate (Negative); Clarity,Urine Turbid (Clear); Color,Urine Yellow (Yellow); Glucose,Urine (UA) 250 mg/dL (Normal); Ketones,Urine Negative (Negative); Leukocyte Esterase,Urine Moderate (Negative); Nitrite,Urine Negative (Negative); Protein,Urine >=300 mg/dL (Neg-Trace); Specific Gravity,Urine 1.016 (1.010-1.025); Urobilinogen,Urine Normal (Normal)
[2018-07-30 23:17] LABS: Bacteria,Urine None Seen per hpf (None-Few); Hyaline Casts,Urine None Seen per lpf (None-Few); Squamous Epithelial Cell,Urine Many per lpf (None-Few); WBC,Urine TNTC per hpf (0-3)
[2018-07-30 23:20] LABS: Basophils % 0.4 %; Eosinophils % 0.3 %; Hematocrit 25.7 % (35.3-44.9); Hemoglobin 8.5 g/dL (11.5-15.4); Immature Granulocytes % 0.3 % (0-4); Lymphocytes # 1.7 K/mcL (0.6-4.6); Lymphocytes % 22.9 %; Mean Corpuscular HGB Conc 33.1 g/dL (31.6-35.5); Mean Corpuscular Hemoglobin 31.3 pg (28.0-33.3); Mean Corpuscular Volume 94.5 fL (83.0-100.0); Mean Platelet Volume 10.4 fL (9.4-12.4); Monocytes # 0.9 K/mcL (0.0-1.3); Neutrophils # 4.7 K/mcL (1.6-8.9); Platelet Count 269 K/mcL (140-400); Red Blood Count 2.72 M/mcL (3.82-4.97); Red Cell Distribution Width 12.9 % (11.5-14.5); Segmented Neutrophils % 64.1 %
[2018-07-30 23:30] LABS: RBC,Urine 0-3 per hpf (0-3); Yeast,Urine Few per hpf (None Seen)
[2018-07-30 23:42] LABS: Albumin 2.8 g/dL (3.5-5.7); Albumin/Globulin Ratio 0.8 (1.1-2.2); Bilirubin,Direct 0.1 mg/dL (0.0-0.2); Bilirubin,Indirect 0.3 mg/dL (0.0-1.2); Bilirubin,Total 0.4 mg/dL (0.3-1.0); Calcium 8.5 mg/dL (8.6-10.3); Globulin 3.7 g/dL (2.4-3.5); Potassium 3.7 mEq/L (3.5-5.1); Total Protein 6.5 g/dL (6.4-8.9)
[2018-07-31] MEDS ORDERED: MetroNIDAZOLE 500 MG/100 ML 500 MG/100 ML BAG IVPB ONE (01:16)
[2018-07-31] MEDS ORDERED: SUMAtriptan 6 MG/0.5 ML SQ PRN (02:51)
[2018-07-31] MEDS ORDERED: Dextrose Gel 15 GM/37.5 ML TUBE PO PRN ×2 (02:53)
[2018-07-31] MEDS ORDERED: 0.9 % Sodium Chloride 1,000 ML IVC SCH (03:00)
--- NOTE | 2018-07-31 03:16 | Internal Med History&Physical ---
Date of Encounter: 07/31/18 Time of Encounter: 03:10 Internal Medicine - H&P: HPI Chief complaint: Fever Admitted From: Home Plans for Post Hospital Care: Home History of present illness: Ms. Dan is a 67 year old woman with hypertension, diabetes, lung cancer status post radiation, end-stage renal disease on dialysis who has been evaluated multiple times for UTI and colitis. More recent she was managed here for HCAP after presenting with fever, hypoxia and CXR showing a right basilar pneumonia with parapneumonic effusion. She was discharged to [facility] yesterday after completing a 7 day course of antibiotics however on arrival there she was found febrile and complained of abdominal pain so she was brought right back here. On arrival she was clinically and hemodynamically stable with normal vital signs and lab were grossly unrevealing except mild hyponatremia and an increase in her serum creatinine from her baseline chronic level. CT imaging of her abdomen and pelvis was done and showed persisting colitis at the junction of the descending and sigmoid colon with probably secondarily induced cystitis. She was then started on ciprofloxacin and metronidazole empirically taking into account her recent course of vancomycin, pi/tazo and azithromycin. At this time her chief complaint is pain that appears to be more predominant in her lower abdomen. She also complains of some pain in her right wrist which she says developed over the past 2-3 days. She has no other complaints at this time. Past Med Surg Social Fam HX - Past Medical History Medical history: arthritis, cancer, coronary artery disease, diabetes, dialysis , GERD, hyperlipidemia, hypertension, myocardial infarction, renal disease, other Additional medical history: neuropathy, insomnia Psychiatric history: anxiety, depression - Past Surgical History Surgical History: appendectomy, cholecystectomy, coronary bypass (CABG), hysterectomy, ureteral stent, other Additional surgical history: colonoscopy - egd - tubal ligation - kidney stent - Social History Smoking Status: Former smoker Smokeless Tobacco Status: No Alcohol use: none Drug use: none - Family History Mother Living Status: Hx Family Endocrine Disorder: (DM) Father Adopted: No Hx Family Cardiac Disorders: Yes ("heart troubles") Hx Family Cancer: Yes (Prostate cancer) Hx Family Endocrine Disorder: Yes (DM) Brother Hx Family Cardiac Disorders: Yes (CAD) Hx Family Cancer: Yes (lung cancer) Internal Medicine - H&P: Meds Folic Acid 1 mg PO DAILY 07/10/15 [History] Levothyroxine [Synthroid] 50 mcg PO QAM 07/10/15 [History] Pantoprazole Sodium [Protonix] 40 mg PO BID 07/10/15 [History] Solifenacin Succinate [Vesicare] 10 mg PO DAILY 07/10/15 [History] Aspirin 81 mg PO DAILY #30 tab.chew 02/18/16 [Rx] Metoprolol XL (24 HR) Succ [Toprol Xl] 12.5 mg PO DAILY #30 tab.er.24h 02/18/16 [Rx] Docusate [Colace] 100 mg PO BID 10/14/16 [History] Albuterol Sulfate [Proair Hfa] 2 puff IH Q4H PRN 03/17/17 [History] Atorvastatin [Lipitor] 40 mg PO HS 03/17/17 [History] Clopidogrel [Plavix] 75 mg PO DAILY 05/09/17 [History] Ondansetron ODT [Zofran ODT] 4 mg PO Q8H PRN 05/09/17 [History] Sucralfate [Carafate] 1 gm PO 0730,1630 05/09/17 [History] Diclofenac Sodium 1 appl TP DAILY PRN 03/01/18 [History] Folic Acid/Vit Bcomp,C [Renal-Elizabeth Tablet] 0.8 mg PO DAILY 03/01/18 [History] Furosemide [Lasix] 20 mg PO DAILY 03/01/18 [History] Amitriptyline [Elavil] 25 mg PO HS 03/26/18 [History] Cyclobenzaprine [Flexeril] 10 mg PO QAM 03/26/18 [History] DULoxetine [Cymbalta] 30 mg PO DAILY 03/26/18 [History] Ergocalciferol (VITAMIN D2) [Drisdol] 50,000 unit PO MO 03/26/18 [History] Insulin ASPART [NovoLOG] 10 unit SQ BID 03/26/18 [History] Insulin DETEMIR [Levemir] 12 - 14 unit SQ BID 03/26/18 [History] Tamsulosin [Flomax] 0.4 mg PO DAILY 03/26/18 [History] Zolpidem [Ambien] 5 mg PO HS 03/26/18 [History] Lactobacillus Combination No.8 [Adult Probiotic] 1 cap PO DAILY 05/04/18 [ History] Pramipexole Di-HCl [Pramipexole Dihydrochloride] 0.125 mg PO HS 05/04/18 [ History] Promethazine [Phenergan] 25 mg PO TID PRN 05/04/18 [History] Psyllium Husk [Daily Fiber] 0.52 gm PO DAILY 05/04/18 [History] SUMAtriptan Succinate [Imitrex] 6 mg SQ BID PRN 05/04/18 [History] Lisinopril [Zestril] 10 mg PO DAILY 06/26/18 [History] OxyCODONE/APAP 5/325 [Percocet 5/325 MG] 1 tab PO TID PRN 3 Days #9 tablet 07/30 [Rx] 3 Allergy/AdvReac Type Severity Reaction Status Date / Time adhesive tape Allergy Redness of Verified 07/15/18 11:57 Skin latex Allergy Swelling Verified 07/15/18 11:57 of Lip/Tongue/Throat Sulfa (Sulfonamide Allergy Rash Verified 07/15/18 11:57 Antibiotics) All Systems PM: A 10-system review of systems was performed and is negative for pertinent findings except as documented above in the HPI. - Constitutional Vitals: Temp Pulse Resp BP Pulse Ox 99.1 F 69 15 141/65 100 07/31/18 02:13 07/31/18 02:13 07/31/18 02:13 07/31/18 02:13 07/31/18 02:13 Exam: Vitals: Reviewed General: Well-appearing and not in acute distress Skin: Pale but warm and supple. Multiple ecchymotic lesions on abdomen with hematoma formations from prior heparin shots. HEENT: Moist mucous membranes. Mild conjunctivae pallor. Neck: No lymphadenopathy. No JVD. No carotid bruits. No palpable thyroid. Chest: Normal thoracic expansion. Normal breath sounds. Clear to auscultation. Heart: Normal S1 & S2; rhythmic. No rubs or murmurs. Abdomen: Non-distended, soft and tender to palpation in the lower hemiabdomen. No peritoneal reaction. Extremities: No clubbing, cyanosis. Right wrist is tender and swollen with pain elicited on passive flexion and extension with functional limitation noted. Normal distal pulses. Palpable thrill on right AVF. Neurological: Awake, alert and oriented to person, place and time. No focal deficits. Psych: Affect appropriate. Internal Med - H&P Results - Labs CBC & Chem 7: 07/30/18 23:04 07/30/18 23:04 - Assessment and plan (1) Fever Current Visit: Yes Status: Acute Assessment and plan: Unclear etiology. The patient recently completed a 7 day course for HCAP. She has ongoing abdominal symptoms and signs of colitis on CT scan which seem to be a persisting problem. Will obtain blood and urine cultures empirically. Ok to continue metronidazole and ciprofloxacin for now (adjusted renally) pending further evaluation. Qualifiers: Fever type: unspecified Qualified Code(s): R50.9 - Fever, unspecified (2) Abdominal pain Current Visit: Yes Status: Chronic Assessment and plan: Seems associated with colitis. Will benefit from GI evaluation and colonoscopy to get to the bottom of this. Qualifiers: Abdominal location: generalized Qualified Code(s): R10.84 - Generalized abdominal pain (3) Wrist pain, acute Current Visit: Yes Status: Acute Assessment and plan: The patient has exquisite tenderness at the right wrist with mild edema and warmth as well as functional limitation. She states it started 2-3 days ago. Will obtain an x-ray for gross evaluation of the osseous structures. May require CT scan. Low threshold to consider joint tap to ensure this is not a septic arthritis process and may be the cause of fever. Qualifiers: Laterality: right Qualified Code(s): M25.531 - Pain in right wrist (4) Anemia Current Visit: Yes Status: Chronic Assessment and plan: AOCD in the setting of renal disease. On iron and folic acid. Qualifiers: Anemia type: due to chronic kidney disease Chronic kidney disease stage: on chronic dialysis Qualified Code(s): N18.6 - End stage renal disease; D63.1 - Anemia in chronic kidney disease; Z99.2 - Dependence on renal dialysis (5) ESRD (end stage renal disease) on dialysis Current Visit: Yes Status: Acute Assessment and plan: Will consult nephrology to place on HD schedule. (6) HCAP (healthcare-associated pneumonia) Current Visit: Yes Status: Resolved Assessment and plan: Treated; no persisting respiratory signs and symptoms. (7) DVT prophylaxis Current Visit: Yes Status: Acute Assessment and plan: SubQ heparin for now. Monitor for ecchymoses. - Time Spent With Patient Total time spent is greater than 50% in coordination of care (as documented) at patient's floor/unit and/or counseling patient: Greater than 35 minutes
[2018-07-31 05:20] LABS: INR 1.3; Prothrombin Time 14.3 Seconds (9.4-12.1)
[2018-07-31 05:23] LABS: Activated Partial Thrombo Time 30.6 Seconds (26.0-36.0)
[2018-07-31 05:27] LABS: Calcium 8.3 mg/dL (8.6-10.3); Potassium 3.8 mEq/L (3.5-5.1)
[2018-07-31] MEDS: *HR* OxyCODONE/APAP 5/325 TABLET PO PRN (05:39)
[2018-07-31] MEDS: *HR* Heparin 5,000 UNIT/ML VIAL SQ SCH ×3 (05:40→21:04)
[2018-07-31] MEDS ORDERED: PSYLLIUM HUSK 0.52 GM PO SCH (09:00)
--- NOTE | 2018-07-31 09:03 | Event Note ---
Date of Encounter: 07/31/18 Time of Encounter: 11:00 Patient has been seen and evaluated by nocturnalist earlier this morning and also by myself. Patient is a 67-year-old female with past medical history significant for end- stage renal disease on hemodialysis and colitis who was discharged on 07/30/18 after treatment for pneumonia who re-presented due to fevers. Patient was found to have persistent colitis on CT of the abdomen now with concerns for possible malignancy. Will continue IV Cipro/Flagyl. GI consulted.
[2018-07-31] MEDS ORDERED: 0.9 % Sodium Chloride 250 ML IVC PRN (09:11)
[2018-07-31] MEDS ORDERED: 0.9 % Sodium Chloride 1,000 ML PRIME SCH (09:15)
[2018-07-31] MEDS: Sucralfate 1 GM TABLET PO SCH ×2 (09:17→16:03)
[2018-07-31] MEDS: Folic Acid 1 MG TABLET PO SCH (09:17)
[2018-07-31] MEDS: Aspirin 81 MG TAB.CHEW PO SCH (09:17)
[2018-07-31] MEDS: Insulin LISPRO 300 UNITS/3 ML VIAL SQ SCH ×4 (09:22→20:49)
--- NOTE | 2018-07-31 10:39 | Nephrology Consult Note ---
<VishGerda goss Cony - Last Filed: 07/31/18 10:36> Date of Encounter: 07/31/18 Time of Encounter: 10:37 Assessment and Plan (1) ESRD (end stage renal disease) on dialysis Status: Acute Current regimen is MWF at [place]. Last Treatment was Tuesday. Plan for HD today. Avoid nephrotoxins and renal dose all medications. (2) Colitis Status: Acute Per primary/GI. Was in [facility] approximately 3 weeks ago for Colitis. (3) Fever Status: Acute Supportive care. Qualifiers: Fever type: unspecified Qualified Code(s): R50.9 - Fever, unspecified (4) Wrist pain, acute Status: Acute Per primary, Xray negative in ED. Qualifiers: Laterality: right Qualified Code(s): M25.531 - Pain in right wrist History of Present Illness - Reason for Consult Consult date: 07/31/18 end stage renal disease - Chief Complaint fevers - History of Present Illness Mrs. Dan is a 67 year old female with ESRD. Current regimen is MWF at [place]. Last treatment was Tuesday without complication. PMH: arthritis, cancer, coronary artery disease, diabetes, dialysis, GERD, hyperlipidemia, hypertension, myocardial infarction. Patient has recently undergone treatment for Lung Ca. She presented to ED with fever from ECF. She admits to fever/chills. Fever was 101 at home but no other fevers noted. Denies nausea/diarrhea. Admits to arhralgias and overall feeling week. RN tells me Former smoker, no etoh or drug use. Pt was just inpatient for over 3 weeks at [facility] for colitis. Patient was found to have persistent colitis on CT of the abdomen now with concerns for possible malignancy. GI has been consulted. HD in progress for today. Past Med Surg Social Fam HX - Past Medical History Medical history: arthritis, cancer, coronary artery disease, diabetes, dialysis, GERD, hyperlipidemia, hypertension, myocardial infarction, renal disease, other Additional medical history: neuropathy, insomnia Psychiatric history: anxiety, depression - Past Surgical History Surgical History: appendectomy, cholecystectomy, coronary bypass (CABG), hysterectomy, ureteral stent, other Additional surgical history: colonoscopy - egd - tubal ligation - kidney stent - Social History Smoking Status: Former smoker Smokeless Tobacco Status: No Alcohol use: none Drug use: none - Family History Brother Hx Family Cardiac Disorders: Yes (CAD) Hx Family Cancer: Yes (lung cancer) Father Adopted: No Hx Family Cardiac Disorders: Yes ("heart troubles") Hx Family Cancer: Yes (Prostate cancer) Hx Family Endocrine Disorder: Yes (DM) Mother Living Status: Hx Family Endocrine Disorder: (DM) Medications and Allergies RX: Folic Acid 1 mg PO DAILY 07/10/15 [History] RX: Levothyroxine [Synthroid] 50 mcg PO QAM 07/10/15 [History] RX: Pantoprazole Sodium [Protonix] 40 mg PO BID 07/10/15 [History] RX: Solifenacin Succinate [Vesicare] 10 mg PO DAILY 07/10/15 [History] RX: Aspirin 81 mg PO DAILY #30 tab.chew 02/18/16 [Rx] RX: Metoprolol XL (24 HR) Succ [Toprol Xl] 12.5 mg PO DAILY #30 tab.er.24h 02/18/16 [Rx] RX: Docusate [Colace] 100 mg PO BID 10/14/16 [History] RX: Albuterol Sulfate [Proair Hfa] 2 puff IH Q4H PRN 03/17/17 [History] RX: Atorvastatin [Lipitor] 40 mg PO HS 03/17/17 [History] RX: Clopidogrel [Plavix] 75 mg PO DAILY 05/09/17 [History] RX: Ondansetron ODT [Zofran ODT] 4 mg PO Q8H PRN 05/09/17 [History] RX: Sucralfate [Carafate] 1 gm PO 0730,1630 05/09/17 [History] RX: Folic Acid/Vit Bcomp,C [Renal-Elizabeth Tablet] 0.8 mg PO DAILY 03/01/18 [History] RX: Furosemide [Lasix] 20 mg PO DAILY 03/01/18 [History] RX: Amitriptyline [Elavil] 25 mg PO HS 03/26/18 [History] RX: DULoxetine [Cymbalta] 30 mg PO Q48H 03/26/18 [History] RX: Ergocalciferol (VITAMIN D2) [Drisdol] 50,000 unit PO MO 03/26/18 [History] RX: Insulin ASPART [NovoLOG] 2 - 8 unit SQ TID 03/26/18 [History] RX: Insulin DETEMIR [Levemir] 12 unit SQ QAM 03/26/18 [History] RX: Tamsulosin [Flomax] 0.4 mg PO DAILY 03/26/18 [History] RX: Zolpidem [Ambien] 5 mg PO HS 03/26/18 [History] RX: Lactobacillus Combination No.8 [Adult Probiotic] 1 cap PO DAILY 05/04/18 [History] RX: Pramipexole Di-HCl [Pramipexole Dihydrochloride] 0.125 mg PO HS 05/04/18 [History] RX: Promethazine [Phenergan] 25 mg PO TID PRN 05/04/18 [History] RX: Psyllium Husk [Daily Fiber] 0.52 gm PO DAILY 05/04/18 [History] RX: SUMAtriptan Succinate [Imitrex] 6 mg SQ BID PRN 05/04/18 [History] RX: Baclofen [Lioresal] 10 mg PO TID PRN 07/31/18 [History] RX: Lisinopril [Zestril] 20 mg PO DAILY 07/31/18 [History] RX: Mirtazapine [Remeron] 15 mg PO HS 07/31/18 [History] RX: Insulin DETEMIR [Levemir Flextouch] 14 unit SQ QPM 08/06/18 [History] RX: Ciprofloxacin [Cipro] 250 mg PO BID 14 Days #14 tablet 08/12/18 [Rx] RX: Fluconazole [Diflucan] 200 mg PO QPM 4 Days #4 tablet 08/12/18 [Rx] RX: OxyCODONE/APAP 5/325 [Percocet 5/325 MG] 1 tab PO TID PRN 3 Days #9 tablet 08/12/18 [Rx] RX: metroNIDAZOLE [Flagyl] 500 mg PO TID 14 Days #42 tablet 08/12/18 [Rx] Allergy/AdvReac Type Severity Reaction Status Date / Time adhesive tape Allergy Redness of Verified 07/15/18 11:57 Skin latex Allergy Swelling Verified 07/15/18 11:57 of Lip/Tongue/Throat Sulfa (Sulfonamide Allergy Rash Verified 07/15/18 11:57 Antibiotics) Review of Systems Constitutional: fatigue, fever(s), no chills, no lethargy, no malaise Cardiovascular: no chest pain, no dyspnea, no edema Respiratory: no cough Gastrointestinal: abdominal pain, dyspepsia (All other systems negative. ), nausea, no diarrhea, no vomiting Exam - Vital Signs Vital signs: Initial Vital Signs Temp Pulse Resp BP Pulse Ox 101.5 F H 68 16 148/70 100 07/30/18 21:51 07/30/18 21:51 07/30/18 21:51 07/30/18 21:51 07/30/18 21:51 Vital Signs - Last 8 Hours Temp Pulse Resp BP Pulse Ox 07/31/18 09:32 93 07/31/18 07:02 98.9 F 70 19 112/60 93 Intake and Output 07/30/18 07/31/18 07/31/18 23:59 07:59 15:59 Intake Total 300 / 300 Balance 300 / 300 Intake: IV Fluids 300 / 300 Cipro Premix 400 MG/200 ML 400 200 / 200 mg In 200 ml @ 200 mls/hr IVPB ONCE ONE Rx#:[id number] Flagyl Premix 500 MG/100 ML 500 100 / 100 mg In 100 ml @ 100 mls/hr IVPB ONCE ONE Rx#:[id number] Other: Blood Glucose* 159 - General Appearance General appearance: chronically ill, fatigue, frail EENT: ATNC, hearing intact, vision intact Neck: supple Respiratory: clear Cardiology: no edema, normal S1, normal S2 - Dialysis Access Dialysis Vascular Access: Arteriovenous Fistula thrill: Yes bruit: Yes Gastrointestinal: normoactive bowel sounds, no tenderness, no guarding Integumentary: no rash, warm and dry Neurologic: alert and oriented x3 Psychiatric: mood/affect appropriate, cooperative Results - Lab Results 07/30/18 23:04 07/31/18 04:54 Most recent lab results Calcium 8.3 mg/dL (8.6-10.3) L 07/31/18 04:54 Consult Discharge Plan - Plan Referrals: Bartolo Washburn MD [Primary Care Provider] - 08/10/18 1:15 pm (Follow-up as scheduled.) Tushar Domingo MD [Partnered Physician] - 10/04/18 2:45 pm (Follow-up as scheduled. ) <Bayron Griffin - Last Filed: 08/25/18 15:24> Assessment and Plan (1) Colitis Status: Acute (2) ESRD (end stage renal disease) on dialysis Status: Chronic (3) Fever Status: Acute Qualifiers: Fever type: unspecified Qualified Code(s): R50.9 - Fever, unspecified (4) Wrist pain, acute Status: Acute Qualifiers: Laterality: right Qualified Code(s): M25.531 - Pain in right wrist Exam - Vital Signs Vital signs: Initial Vital Signs Temp Pulse Resp BP Pulse Ox 101.5 F H 68 16 148/70 100 07/30/18 21:51 07/30/18 21:51 07/30/18 21:51 07/30/18 21:51 07/30/18 21:51 Results - Lab Results 08/04/18 06:29 08/04/18 06:29 Most recent lab results Calcium 8.4 mg/dL (8.6-10.3) L 08/04/18 06:29 Phosphorus 3.6 mg/dL (2.7-4.5) 08/04/18 06:29 Magnesium 1.8 mg/dL (1.6-2.6) 08/04/18 06:29 - Attending Attestation I examined this patient and my medical decision-making was reviewed with the Resident Physician/AIRPLANE CABIN ATTENDANT. I agree with the documented findings, disposition and treatment plan as described except to the extent set forth below. In brief; 67 y o female with PMH of ESRd on HD, DM, HTN, CAD and recent diagnosed of lung cancer treated at [facility] recently [facility] for [facility] now presenting from [facility] with fevers. Renal consulted for ESRd management. Pt seen and examined on HD complaining of weakness. On exam chronic ill appearing, lethargic otherwise unremarkable. Will continue HD with minimal UF due to poor po intake. Lytes stable. will follow with you during stay.
[2018-07-31] MEDS ORDERED: traMADol 50 MG TABLET PO ONE (11:12)
[2018-07-31] MEDS ORDERED: *HR* Heparin 5,000 UNIT/ML VIAL ONE (11:21)
[2018-07-31] MEDS: MetroNIDAZOLE 500 MG/100 ML 500 MG/100 ML BAG IVPB SCH ×3 (12:59→23:35)
[2018-07-31] MEDS: Metoprolol XL (24 HR) Succ 25 MG TAB.ER.24H PO SCH (14:04)
--- NOTE | 2018-07-31 15:48 | Gastroenterology Consult Note ---
<Marya Marti - Last Filed: 07/31/18 21:57> Date of Encounter: 07/31/18 Time of Encounter: 15:45 - Assessment and plan (1) Abdominal pain Current Visit: Yes Status: Chronic Assessment and plan: 67-year-old female with past medical history of lung cancer and ESRD complaining of abdominal pain since 3 weeks ago when she was treated for colitis at [facility]. Abdominal CT demonstrate persistent colitis in the descending and sigmoid colon concerning for colon cancer, secondary cystitis. -There is concern for possible colon cancer due to CT abdomen demonstrate persistent colitis in a specific area of the descending and sigmoid colon. This was explained to the patient and she is agreeable to colonoscopy. -Colonoscopy 2013 no polyps per [facility] records -Stool occult negative -denied weight loss, melena, hematachezia. No family history colon cancer. Plan: -colonoscopy tomorrow -bowel prep tonight (Go-lytley and dulcolax) -clear liquid diet -NPO 0600 tomorrow Qualifiers: Abdominal location: generalized Qualified Code(s): R10.84 - Generalized abdominal pain (2) Anemia Current Visit: Yes Status: Chronic Assessment and plan: Anemia likely of chronic disease in setting of ESRD hemoglobin 8.5 (base line 10-12) hematocrit 25.7 stool occult negative no obvious active bleeding -taking folic acid -will monitor hemoglobin Qualifiers: Anemia type: due to chronic kidney disease Chronic kidney disease stage: on chronic dialysis Qualified Code(s): N18.6 - End stage renal disease; D63.1 - Anemia in chronic kidney disease; Z99.2 - Dependence on renal dialysis - Time Spent With Patient Total time spent is greater than 50% in coordination of care (as documented) at patient's floor/unit and/or counseling patient: GI History of Present Illness - Data of Consult Consult date: 07/31/18 Requesting Physician: Jose Clemons - Consult Narrative Reason for consult: Persistent colitis on abdominal CT concerning for colon cancer History of present illness: Ms. Dan is a 67 year old female with past medical history of lung cancer, ESRD on dialysis, [place], hypertension, diabetes who presented to [facility] due to fevers and was found to have persistent colitis in the descending and sigmoid colon those concerning for colon cancer, and secondary cystitis demonstrated by abdominal and pelvis CT. She reported that she has had abdominal pain since 4 weeks ago when she was evaluated at [facility] due to abdominal pain. She stated that she was diagnosed with colitis and she also noted melena at that time. Her abdominal pain has been intermittent and is located the left lower quadrant. She denies weight loss, fever, chills, fatigue, melena, hematechezia, nausea, vomiting. She denied a family history of colon cancer. She is a former smoker. She denies alcohol use or drug use. She stated that she has had an colonoscopy less than 10 years ago here at [place]. Past Med Surg Social Fam HX - Past Medical History Attestation: Yes The following information was validated with the patient. Source: patient Medical history: arthritis, cancer, coronary artery disease, diabetes, dialysis , GERD, hyperlipidemia, hypertension, myocardial infarction, renal disease, other Additional medical history: neuropathy, insomnia Psychiatric history: anxiety, depression - Past Surgical History Surgical History: appendectomy, cholecystectomy, coronary bypass (CABG), hysterectomy, ureteral stent, other Additional surgical history: colonoscopy - egd - tubal ligation - kidney stent - Social History Smoking Status: Former smoker Smokeless Tobacco Status: No Alcohol use: none Drug use: none - Family History Mother Living Status: Hx Family Endocrine Disorder: (DM) Father Adopted: No Hx Family Cardiac Disorders: Yes ("heart troubles") Hx Family Cancer: Yes (Prostate cancer) Hx Family Endocrine Disorder: Yes (DM) Brother Hx Family Cardiac Disorders: Yes (CAD) Hx Family Cancer: Yes (lung cancer) - Gastrointestinal Gastrointestinal: Present: abdominal pain, nausea. Absent: constipation, diarrhea, hematemesis, hematochezia, melena, vomiting - Constitutional Constitutional: no anorexia, no fever(s), no weight loss - EENT Nose, mouth and throat: Absent: dysphagia - Cardiovascular Cardiovascular ROS: Absent: chest pain, palpitations - Respiratory Respiratory IM: Absent: cough, dyspnea - Genitourinary Genitourinary: Absent: change in color, Urinary frequency - Neurological ROS Neurological GI: Absent: confusion, dizziness - Hematologic/Lymphatic Hematologic/Lymphatic pediatric: Absent: easy bleeding - Musculoskeletal Musculoskeletal ROS GI: Absent: back pain, joint swelling - Integumentary Integumentary GI: Absent: jaundice, pruritis, rash - Psychiatric ROS Psychiatric GI: Present: depression - Endocrine Endocrine IM: Absent: fatigue - Constitutional Vitals: Temp Pulse Resp BP Pulse Ox 98.7 F 72 18 137/67 96 07/31/18 13:48 07/31/18 13:48 07/31/18 13:48 07/31/18 13:48 07/31/18 13:48 Exam: Gen.: Vitals noted. No acute distress. AAOx3 HEENT: oropharynx clear, Normocephalic, atraumatic Cardiac: RRR, no murmur, +S1/S2 Pulmonary: CTA bilaterally, no wheezes, rales or rhonchi, equal chest expansion Abdomen: soft, left lower quadrant tender, Bowel sounds noted, no guarding MSK: ROM intact, no joint swelling noted Extremities: no BLE edema, nontender calf, no cyanosis or clubbing Neuro: A&Ox3, moves all extremities, no focal deficits Psych: Appropriate mood and behavior Results - Labs CBC & Chem 7: 07/30/18 23:04 07/31/18 04:54 Labs: Last Result Calcium 8.3 mg/dL (8.6-10.3) L 07/31/18 04:54 Entire Visit Hgb 8.5 g/dL (11.5-15.4) L 07/30/18 23:04 Hct 25.7 % (35.3-44.9) L 07/30/18 23:04 PT 14.3 Seconds (9.4-12.1) H 07/31/18 04:54 Total Bilirubin 0.4 mg/dL (0.3-1.0) 07/30/18 23:04 AST 19 Units/L (13-39) 07/30/18 23:04 ALT 12 Units/L (7-52) 07/30/18 23:04 - ABG ABG results: PT/INR, D-dimer PT 14.3 Seconds (9.4-12.1) H 07/31/18 04:54 Consult Discharge Plan - Plan Referrals: Bartolo Washburn MD [Primary Care Provider] - <Tushar Domingo - Last Filed: 07/31/18 23:48> Date of Encounter: 07/31/18 - Time Spent With Patient Total time spent is greater than 50% in coordination of care (as documented) at patient's floor/unit and/or counseling patient: GI History of Present Illness - Data of Consult Requesting Physician: Jose Clemons - Consult Narrative History of present illness: Ms. Dan is a 67 year old female - Constitutional Vitals: Temp Pulse Resp BP Pulse Ox 99.0 F 69 17 154/68 93 07/31/18 20:12 07/31/18 20:12 07/31/18 20:12 07/31/18 20:12 07/31/18 20:12 Results - Labs CBC & Chem 7: 07/30/18 23:04 07/31/18 04:54 Labs: Last Result Calcium 8.3 mg/dL (8.6-10.3) L 07/31/18 04:54 Entire Visit Hgb 8.5 g/dL (11.5-15.4) L 07/30/18 23:04 Hct 25.7 % (35.3-44.9) L 07/30/18 23:04 PT 14.3 Seconds (9.4-12.1) H 07/31/18 04:54 Total Bilirubin 0.4 mg/dL (0.3-1.0) 07/30/18 23:04 AST 19 Units/L (13-39) 07/30/18 23:04 ALT 12 Units/L (7-52) 07/30/18 23:04 - ABG ABG results: PT/INR, D-dimer PT 14.3 Seconds (9.4-12.1) H 07/31/18 04:54 - Attending Attestation I examined this patient and my medical decision-making was reviewed with the Resident Physician. I agree with the documented findings, disposition and treatment plan as described except to the extent set forth below. Pt seen. O/E : LLQ tanderness and abn CT r/o tumor Rec: Colon am
[2018-07-31] MEDS ORDERED: SODIUM CHLORIDE/NAHCO3/KCL/PEG 4,000 ML SOLN.RECON PO ONE (15:52)
[2018-08-01] MEDS: *HR* Heparin 5,000 UNIT/ML VIAL SQ SCH ×3 (05:33→21:27)
[2018-08-01 08:27] LABS: Calcium 8.4 mg/dL (8.6-10.3); Potassium 4.3 mEq/L (3.5-5.1)
[2018-08-01 08:35] LABS: Hematocrit 24.7 % (35.3-44.9); Hemoglobin 8.1 g/dL (11.5-15.4); Mean Corpuscular HGB Conc 32.8 g/dL (31.6-35.5); Mean Corpuscular Hemoglobin 31.3 pg (28.0-33.3); Mean Corpuscular Volume 95.4 fL (83.0-100.0); Mean Platelet Volume 10.5 fL (9.4-12.4); Platelet Count 263 K/mcL (140-400); Red Blood Count 2.59 M/mcL (3.82-4.97); Red Cell Distribution Width 13.2 % (11.5-14.5)
[2018-08-01] MEDS: Metoprolol XL (24 HR) Succ 25 MG TAB.ER.24H PO SCH (09:23)
[2018-08-01] MEDS: MetroNIDAZOLE 500 MG/100 ML 500 MG/100 ML BAG IVPB SCH ×2 (09:24→15:39)
[2018-08-01] MEDS: Insulin LISPRO 300 UNITS/3 ML VIAL SQ SCH ×4 (10:21→20:12)
--- NOTE | 2018-08-01 10:38 | Internal Med Progress Note ---
Hospitalist Progress Note - Encounter Date of Encounter: 08/01/18 Time of Encounter: 10:36 - Subjective Interval History: Patient seen and evaluated at bedside, still reports left lower quadrant abdominal pain. Nauseated due to the bowel prep. Denies chest pain, shortness of breath. - Exam Vitals: Temp Pulse Resp BP Pulse Ox 98.5 F 76 18 175/65 92 08/01/18 08:02 08/01/18 08:02 08/01/18 08:02 08/01/18 08:02 08/01/18 08:02 Exam: General: Alert and oriented x4. In mild distress due to nausea. Cardiovascular: RRR, Normal S1 & S2, no rubs, murmurs or gallops. Lungs: Clear lungs to auscultation bilaterally, no wheezes, rales or crackles. Abdomen:Soft, tenderness to superficial palpation in the left lower quadrant. Hyperactive bowel sounds in all 4 quadrants. Extremities: No deformity, no edema or tenderness, no joint swelling or clubbing. Neurological:Normal cognition and motor skills. CN II-XII intact. Rest of the physical exam is non contributory - Assessment and Plan (1) Colitis Current Visit: Yes Status: Acute Assessment and Plan: CT Abd/Pelvis: IMPRESSION: Persisting colitis at the junction of the descending and sigmoid colon with probably secondarily induced cystitis. Given the persistence of this finding colon cancer is another consideration. Plan Continue Ciprofloxacin plus metronidazole GI has been consulted. Patient scheduled for Colonoscopy today Discussed with the nurse to inform GI about patient poor bowel prep. Patient had drank less that 1/3 of the prep due to the prep making her nauseated. Bowel prep as per GI recommendations. Continue Ondanzetrom 4mg/IV Q4hr PRN for nausea and vomiting. (2) DVT prophylaxis Current Visit: Yes Status: Acute Assessment and Plan: On heparin 5000 units subcutaneous every 8 hours (3) HCAP (healthcare-associated pneumonia) Current Visit: Yes Status: Resolved Assessment and Plan: Patient recently completed treatment for Pneumonia. (4) ESRD (end stage renal disease) on dialysis Current Visit: Yes Status: Acute Assessment and Plan: Renal replacement therapy as per nephrology recommendations. patient HD days on MWF. Avoid nephrotoxic medications. (5) Anemia Current Visit: Yes Status: Chronic Assessment and Plan: H&H stable. Possible anemia of chronic disease. No active signs of bleeding. Will continue to monitor H&H. Will consider transfusing if Hb <7 or Hct <23 or patient becomes asymptomatic. (6) Wrist pain, acute Current Visit: Yes Status: Acute Assessment and Plan: X-ray negative for fracture. Pain control. (7) CAD (coronary artery disease) Current Visit: Yes Status: Acute Assessment and Plan: Patient on dual antiplatelet therapy plus atorvastatin. (8) Hypertension Current Visit: Yes Status: Acute Assessment and Plan: Blood pressure suboptimally controlled ranging from 140s to 175. Continue Coumadin antihypertensive medication, patient on metoprolol, increase lisinopril 20 mg by mouth daily. (9) Diabetes mellitus Current Visit: No Status: Chronic Assessment and Plan: Blood sugar has been well controlled. Will continue Lispro Sliding scale. Will add levemir 5 unit HS. (10) Hypothyroidism Current Visit: Yes Status: Acute Assessment and Plan: will continue patient home dose of levothyroxine - Summary of Assessment and Plan Summary of Assessment and Plan: Patient to remain in the hospital due to colitis. Scheduled for Colonoscopy today. - Time Spent with Patient Total time spent is greater than 50% in coordination of care (as documented) at patient's floor/unit and/or counseling patient: Greater than 35 minutes Plan of Care Discussed with: patient (the nurse.) Internal Medicine: Result - Labs CBC & Chem 7: 08/01/18 07:35 08/01/18 07:35 Labs: Short CBC 08/01/18 Range/Units 07:35 WBC 6.3 (4.3-11.1) K/mcL Hgb 8.1 L (11.5-15.4) g/dL Hct 24.7 L (35.3-44.9) % Plt Count 263 (140-400) K/mcL BMP 08/01/18 07:35 Sodium 132 L Potassium 4.3 Chloride 95 L Carbon Dioxide 29 BUN 12 Creatinine 2.45 H Glucose 153 H Calcium 8.4 L - ABG Interpretation ABG results: PT/INR, D-dimer PT 14.3 Seconds (9.4-12.1) H 07/31/18 04:54 Consult Discharge Plan - Plan Referrals: Bartolo Washburn MD [Primary Care Provider] - (5) Anemia Qualifiers: Anemia type: due to chronic kidney disease Chronic kidney disease stage: on chronic dialysis Qualified Code(s): N18.6 - End stage renal disease; D63.1 - Anemia in chronic kidney disease; Z99.2 - Dependence on renal dialysis (6) Wrist pain, acute Qualifiers: Laterality: right Qualified Code(s): M25.531 - Pain in right wrist (7) CAD (coronary artery disease) Qualifiers: Coronary Disease-Associated Artery/Lesion type: unspecified vessel or lesion type [place] vs. transplanted heart: unspecified whether [place] or transplanted heart Associated angina: angina presence unspecified Qualified Code(s): I25.10 - Atherosclerotic heart disease of [place] coronary artery without angina pectoris (8) Hypertension Qualifiers: Hypertension type: unspecified Qualified Code(s): I10 - Essential (primary) hypertension (9) Diabetes mellitus Qualifiers: Diabetes mellitus type: type 2 Diabetes mellitus half-way insulin use: with gravity manager use Diabetes mellitus complication status: with kidney complications Diabetes mellitus complication detail: with chronic kidney disease Chronic kidney disease stage: on chronic dialysis Qualified Code(s): E11.22 - Type 2 diabetes mellitus with diabetic chronic kidney disease; N18.6 - End stage renal disease; Z79.4 - MCFP (current) use of insulin; Z99.2 - Dependence on renal dialysis (10) Hypothyroidism Qualifiers: Hypothyroidism type: unspecified Qualified Code(s): E03.9 - Hypothyroidism, unspecified
[2018-08-01] MEDS: Aspirin 81 MG TAB.CHEW PO SCH (11:00)
[2018-08-01] MEDS: Ondansetron ODT 4 MG TAB.RAPDIS PO PRN (11:28)
--- NOTE | 2018-08-01 11:45 | Nephrology Progress Note ---
Date of Encounter: 08/01/18 Time of Encounter: 11:43 - Assessment and Plan (1) ESRD (end stage renal disease) on dialysis Current Visit: Yes Status: Acute Current regimen is MWF at [place]. HD yesterday without complication. Avoid nephrotoxins and renal dose all medications. (2) Colitis Current Visit: Yes Status: Acute Per primary/GI. Was in [facility] approximately 3 weeks ago for Colitis. Colonscopy planned for this afternoon r/u mass. (3) Fever Current Visit: Yes Status: Acute Supportive care. Qualifiers: Fever type: unspecified Qualified Code(s): R50.9 - Fever, unspecified (4) Wrist pain, acute Current Visit: Yes Status: Acute Per primary, Xray negative in ED. Qualifiers: Laterality: right Qualified Code(s): M25.531 - Pain in right wrist Subjective Principal diagnosis: fever Interval history: Pt seen and examined, doing well. Objective - Vital Signs Vital signs: Vital Signs Temp Pulse Resp BP Pulse Ox 08/01/18 11:09 98.9 F 72 20 172/83 95 08/01/18 08:02 98.5 F 76 18 175/65 92 08/01/18 04:08 98.3 F 76 16 153/74 93 08/01/18 00:10 98.9 F 71 16 146/67 95 07/31/18 20:12 99.0 F 69 17 154/68 93 07/31/18 16:08 99.6 F 71 18 116/61 93 07/31/18 13:48 98.7 F 72 18 137/67 96 07/31/18 13:30 97.8 F 15 144/61 07/31/18 13:05 130/71 07/31/18 12:50 131/61 07/31/18 12:35 121/53 07/31/18 12:20 124/54 07/31/18 12:05 123/58 07/31/18 11:50 124/54 Intake and Output 07/31/18 08/01/18 08/01/18 23:59 07:59 15:59 Intake Total 300 / 300 100 / 100 Balance 300 / 300 100 / 100 Intake: IV Fluids 300 / 300 100 / 100 Cipro Premix 400 MG/200 ML 400 200 / 200 mg In 200 ml @ 200 mls/hr IVPB Q24H [id number] Rx#:[id number] Flagyl Premix 500 MG/100 ML 500 100 / 100 100 / 100 mg In 100 ml @ 100 mls/hr IVPB Q8HR [facility] Rx#:[id number] Other: Weight 71.6 kg Blood Glucose* 179 149 149 Patient Weight 08/01/18 23:59 Weight 71.6 kg - General Appearance General appearance: Present: well-developed, well-nourished EENT: Present: ATNC, hearing intact, vision intact Neck: Present: supple Respiratory: Present: clear Cardiology: Present: no edema, normal S1, normal S2 Dialysis Vascular Access: Arteriovenous Fistula thrill: Yes bruit: Yes Gastrointestinal: Present: normoactive bowel sounds, no tenderness, no guarding Integumentary: Present: no rash, warm and dry Neurologic: Present: alert and oriented x3 Psychiatric: Present: mood/affect appropriate, cooperative - Lab 08/01/18 07:35 08/01/18 07:35 Most recent lab results Calcium 8.4 mg/dL (8.6-10.3) L 08/01/18 07:35 Consult Discharge Plan - Plan Referrals: Bartolo Washburn MD [Primary Care Provider] -
[2018-08-01] MEDS: Folic Acid 1 MG TABLET PO SCH (12:00)
[2018-08-01] MEDS: Sucralfate 1 GM TABLET PO SCH ×2 (12:13→16:56)
[2018-08-01] MEDS: Psyllium 1 PACKET POWD.PACK PO SCH (12:14)
--- NOTE | 2018-08-01 13:08 | Anesthesia Evaluation PreOp ---
Date of Encounter: 08/01/18 Time of Encounter: 13:00 - Past History Planned Operation: Colonoscopy Cardiac History: UT, HTN, Hyperlipidemia, Cardiac Surgery (1999), Other (CAD) Pulmonary History: Denies Any Significant HX DATABASE DBA History: Denies Any Significant HX Other Medical History: Renal (ESRD dialyzed yesterday), GERD Anesthesia History: No Prior Anesthetic Complications Alcohol Use: none Drug use: none Medications and Allergies Folic Acid 1 mg PO DAILY 07/10/15 [History] Levothyroxine [Synthroid] 50 mcg PO QAM 07/10/15 [History] Pantoprazole Sodium [Protonix] 40 mg PO BID 07/10/15 [History] Solifenacin Succinate [Vesicare] 10 mg PO DAILY 07/10/15 [History] Aspirin 81 mg PO DAILY #30 tab.chew 02/18/16 [Rx] Metoprolol XL (24 HR) Succ [Toprol Xl] 12.5 mg PO DAILY #30 tab.er.24h 02/18/16 [Rx] Docusate [Colace] 100 mg PO BID 10/14/16 [History] Albuterol Sulfate [Proair Hfa] 2 puff IH Q4H PRN 03/17/17 [History] Atorvastatin [Lipitor] 40 mg PO HS 03/17/17 [History] Clopidogrel [Plavix] 75 mg PO DAILY 05/09/17 [History] Ondansetron ODT [Zofran ODT] 4 mg PO Q8H PRN 05/09/17 [History] Sucralfate [Carafate] 1 gm PO 0730,1630 05/09/17 [History] Folic Acid/Vit Bcomp,C [Renal-Elizabeth Tablet] 0.8 mg PO DAILY 03/01/18 [History] Furosemide [Lasix] 20 mg PO DAILY 03/01/18 [History] Amitriptyline [Elavil] 25 mg PO HS 03/26/18 [History] DULoxetine [Cymbalta] 30 mg PO DAILY 03/26/18 [History] Ergocalciferol (VITAMIN D2) [Drisdol] 50,000 unit PO MO 03/26/18 [History] Insulin ASPART [NovoLOG] 10 unit SQ BID 03/26/18 [History] Insulin DETEMIR [Levemir] 12 - 14 unit SQ BID 03/26/18 [History] Tamsulosin [Flomax] 0.4 mg PO DAILY 03/26/18 [History] Zolpidem [Ambien] 5 mg PO HS 03/26/18 [History] Lactobacillus Combination No.8 [Adult Probiotic] 1 cap PO DAILY 05/04/18 [ History] Pramipexole Di-HCl [Pramipexole Dihydrochloride] 0.125 mg PO HS 05/04/18 [ History] Promethazine [Phenergan] 25 mg PO TID PRN 05/04/18 [History] Psyllium Husk [Daily Fiber] 0.52 gm PO DAILY 05/04/18 [History] SUMAtriptan Succinate [Imitrex] 6 mg SQ BID PRN 05/04/18 [History] OxyCODONE/APAP 5/325 [Percocet 5/325 MG] 1 tab PO TID PRN 3 Days #9 tablet 07/30 [Rx] Baclofen [Lioresal] 10 mg PO TID PRN 07/31/18 [History] Lisinopril [Zestril] 20 mg PO DAILY 07/31/18 [History] Mirtazapine [Remeron] 15 mg PO HS 07/31/18 [History] 3 Allergy/AdvReac Type Severity Reaction Status Date / Time adhesive tape Allergy Redness of Verified 07/15/18 11:57 Skin latex Allergy Swelling Verified 07/15/18 11:57 of Lip/Tongue/Throat Sulfa (Sulfonamide Allergy Rash Verified 07/15/18 11:57 Antibiotics) - Meds/Allergy Pre-op Review Medications Reviewed: Yes Allergies Reviewed: Yes Beta Blockers on Current Med List: Yes (on metoprolol) Anesthesia Results - Labs 08/01/18 07:35 08/01/18 07:35 - Imaging EKG: report reviewed (SR) Additional studies: ECHO EF 60% Anesthesia Exam Vital Signs/O2 Sat/Glucose, Most Current Temp Pulse Resp BP Pulse Ox 08/01/18 12:47 99.3 F 72 16 128/88 100 08/01/18 11:09 98.9 F 72 20 172/83 95 Height: 5'6 Weight: 157 lbs NPO (# of Hours): MN Pain Scale: 0 - HEENT Pupil (Motor): Pupils equal, EOMI Mallampati: III Teeth: Edentulous Oral Opening: Less than or equal to 3 - DATABASE DBA LOC: Oriented DATABASE DBA Motor: Normal RUE, Normal LUE, Normal RLE, Normal LLE, Normal Face DATABASE DBA Sensory: Normal: RUE, LUE, RLE, LLE, Face - Cardiac Rhythm: Regular Murmur: None JVD: No Carotid Bruit: No - Pulmonary Breath Sounds: bilateral Clear Respiratory Effort: Symmetrical Anesthesia Assess/Plan ASA Score: 4 (CAD HTN ESRD) Modified Olivia Scale for Level of Consciousness: Cooperative, oriented, and tranquil Anesthetic Plan: MAC Monitoring Plan: Standard Monitors Recovery Plan: Other (Discussed MAC, agrees to proceed)
--- NOTE | 2018-08-01 15:33 | Anesthesia Evaluation Post Op ---
Date of Encounter: 08/01/18 Time of Encounter: 13:40 - Vital Signs Vital Signs: Vital Signs/O2 Sat/Glucose, Most Current Temp Pulse Resp BP Pulse Ox 08/01/18 12:47 99.3 F 72 16 128/88 100 - Lungs Lungs: Clear Ascult./Percussion - Airway Airway: Non-obstructed - Cardiovascular Regular Rate - Mental Status Mental Status: Alert & Oriented, Answers Appropriately - Pain Pain Scale: 0 - Nausea Vomiting Nausea Vomiting: Not Present - Hydration Hydration: NPO - Discharge PostOp Status: Transfer Patient to floor
[2018-08-01] MEDS: *HR* OxyCODONE/APAP 5/325 TABLET PO PRN (21:48)
[2018-08-01] MEDS: Insulin DETEMIR 100 UNIT/ML X5UNITS SQ SCH (21:54)
[2018-08-02] MEDS: MetroNIDAZOLE 500 MG/100 ML 500 MG/100 ML BAG IVPB SCH ×4 (00:06→23:22)
[2018-08-02] MEDS: *HR* Heparin 5,000 UNIT/ML VIAL SQ SCH ×3 (06:22→21:28)
[2018-08-02 07:37] LABS: Basophils % 0.5 %; Eosinophils # 0.1 K/mcL (0.0-0.6); Eosinophils % 1.6 %; Hematocrit 24.4 % (35.3-44.9); Hemoglobin 7.9 g/dL (11.5-15.4); Immature Granulocytes % 0.5 % (0-4); Lymphocytes # 1.2 K/mcL (0.6-4.6); Lymphocytes % 20.3 %; Mean Corpuscular HGB Conc 32.4 g/dL (31.6-35.5); Mean Corpuscular Hemoglobin 31.2 pg (28.0-33.3); Mean Corpuscular Volume 96.4 fL (83.0-100.0); Mean Platelet Volume 10.4 fL (9.4-12.4); Monocytes # 0.9 K/mcL (0.0-1.3); Monocytes % 16.1 %; Neutrophils # 3.5 K/mcL (1.6-8.9); Platelet Count 261 K/mcL (140-400); Red Blood Count 2.53 M/mcL (3.82-4.97); Red Cell Distribution Width 13.2 % (11.5-14.5)
[2018-08-02 07:55] LABS: Calcium 8.4 mg/dL (8.6-10.3); Magnesium 1.8 mg/dL (1.6-2.6); Potassium 3.8 mEq/L (3.5-5.1)
[2018-08-02] MEDS: Metoprolol XL (24 HR) Succ 25 MG TAB.ER.24H PO SCH (08:18)
[2018-08-02] MEDS: Aspirin 81 MG TAB.CHEW PO SCH (08:18)
[2018-08-02] MEDS: Sucralfate 1 GM TABLET PO SCH ×2 (08:18→16:48)
[2018-08-02] MEDS: Folic Acid 1 MG TABLET PO SCH (08:19)
[2018-08-02] MEDS: Psyllium 1 PACKET POWD.PACK PO SCH (08:19)
[2018-08-02] MEDS: Ondansetron ODT 4 MG TAB.RAPDIS PO PRN (08:30)
[2018-08-02] MEDS: Insulin LISPRO 300 UNITS/3 ML VIAL SQ SCH ×4 (08:33→21:28)
[2018-08-02] MEDS ORDERED: 0.9 % Sodium Chloride 250 ML IVC PRN (09:33)
[2018-08-02] MEDS ORDERED: 0.9 % Sodium Chloride 1,000 ML PRIME SCH (09:45)
[2018-08-02] MEDS ORDERED: D5% in 0.45% NACL 1,000 ML IVC SCH (10:30)
--- NOTE | 2018-08-02 10:31 | Internal Med Progress Note ---
Hospitalist Progress Note - Encounter Date of Encounter: 08/02/18 Time of Encounter: 10:28 - Subjective Interval History: Evaluated at bedside, patient reports feeling weak, feeling nauseated and having been able to keep anything down today due to vomiting episodes. She denies fever/chills. Also reports that her abdomen still hurts. denies loose stool. - Exam Vitals: Temp Pulse Resp BP Pulse Ox 99.5 F 80 17 119/52 92 08/02/18 07:35 08/02/18 07:35 08/02/18 07:35 08/02/18 07:35 08/02/18 07:35 Exam: General: Alert and oriented x4. In mild distress due to nausea. Cardiovascular: RRR, Normal S1 & S2, no rubs, murmurs or gallops. Lungs: Clear lungs to auscultation bilaterally, no wheezes, rales or crackles. Abdomen: Soft, tenderness to superficial palpation in the left lower quadrant. NABS in all 4 quadrants Extremities: trace edema in the lower extr b/l. Neurological: Normal cognition and motor skills. CN II-XII intact. Rest of the physical exam is non contributory - Assessment and Plan (1) Colitis Current Visit: Yes Status: Acute Assessment and Plan: E/P Colonoscopy which showed findings subjective of severe ischemic colitis as per report Plan Continue IV antibiotics started on low dose IV fluids as maintenance as patient not tolerating PO diet Will continue to follow GI recommendations F/U colonic biopsy (2) ESRD (end stage renal disease) on dialysis Current Visit: Yes Status: Acute Assessment and Plan: Renal replacement therapy as per Nephrology recommendations. (3) Anemia Current Visit: Yes Status: Chronic Assessment and Plan: H&H has been slightly dropping but no signs of active bleeding. Will continue to monitor. (4) CAD (coronary artery disease) Current Visit: Yes Status: Acute Assessment and Plan: Patient on dual antiplatelet therapy plus atorvastatin. (5) Hypertension Current Visit: Yes Status: Acute Assessment and Plan: Blood pressure is well controlled. Continue lisinopril 20 mg by mouth daily, and metoprolol 12.5 mg by mouth daily (6) Diabetes mellitus Current Visit: No Status: Chronic Assessment and Plan: Blood sugar ranging in the 90s, continue lispro sliding scale and Levemir 5 units at bedtime. On a carb controlled diet, but patient not tolerating well by mouth intake due to nausea. (7) Hypothyroidism Current Visit: Yes Status: Acute Assessment and Plan: Continue patient home medication. On levothyroxine. (8) DVT prophylaxis Current Visit: Yes Status: Acute Assessment and Plan: On heparin 5000 units Q8HR SUbQ for DVT prophylaxis (9) Depression Current Visit: Yes Status: Acute Assessment and Plan: Patient on multiple mood stabilizing medications. Continue current treatment. (10) Nausea & vomiting Current Visit: Yes Status: Acute Assessment and Plan: Patient continues to feels nauseated. Plan Change Ondanzetron 4mg/Q6HR IV scheduled. started on low dose IV fluids for maintenance, as patient not tolerating by mouth diet. - Summary of Assessment and Plan Summary of Assessment and Plan: Patient to remain in the hospital due to ischemic colitis. Nausea, vomiting and abdominal pain. - Time Spent with Patient Total time spent is greater than 50% in coordination of care (as documented) at patient's floor/unit and/or counseling patient: Greater than 35 minutes Plan of Care Discussed with: patient (the nurse.) Internal Medicine: Result - Labs CBC & Chem 7: 08/02/18 06:58 08/02/18 06:58 Labs: Short CBC 08/02/18 Range/Units 06:58 WBC 5.7 (4.3-11.1) K/mcL Hgb 7.9 L (11.5-15.4) g/dL Hct 24.4 L (35.3-44.9) % Plt Count 261 (140-400) K/mcL Neutrophils # 3.5 (1.6-8.9) K/mcL BMP 08/02/18 06:58 Sodium 134 L Potassium 3.8 Chloride 99 Carbon Dioxide 29 BUN 15 Creatinine 3.18 H Glucose 82 Calcium 8.4 L - ABG Interpretation ABG results: PT/INR, D-dimer PT 14.3 Seconds (9.4-12.1) H 07/31/18 04:54 Consult Discharge Plan - Plan Referrals: Bartolo Washburn MD [Primary Care Provider] - (3) Anemia Qualifiers: Anemia type: due to chronic kidney disease Chronic kidney disease stage: on chronic dialysis Qualified Code(s): N18.6 - End stage renal disease; D63.1 - Anemia in chronic kidney disease; Z99.2 - Dependence on renal dialysis (4) CAD (coronary artery disease) Qualifiers: Coronary Disease-Associated Artery/Lesion type: unspecified vessel or lesion type [place] vs. transplanted heart: unspecified whether [place] or transplanted heart Associated angina: angina presence unspecified Qualified Code(s): I25.10 - Atherosclerotic heart disease of [place] coronary artery without angina pectoris (5) Hypertension Qualifiers: Hypertension type: unspecified Qualified Code(s): I10 - Essential (primary) hypertension (6) Diabetes mellitus Qualifiers: Diabetes mellitus type: type 2 Diabetes mellitus exterminator termite insulin use: with exterminator termite use Diabetes mellitus complication status: with kidney complications Diabetes mellitus complication detail: with chronic kidney disease Chronic kidney disease stage: on chronic dialysis Qualified Code(s): E11.22 - Type 2 diabetes mellitus with diabetic chronic kidney disease; N18.6 - End stage renal disease; Z79.4 - shelter (current) use of insulin; Z99.2 - Dependence on renal dialysis (7) Hypothyroidism Qualifiers: Hypothyroidism type: unspecified Qualified Code(s): E03.9 - Hypothyroidism, unspecified (9) Depression Qualifiers: Depression Type: unspecified Qualified Code(s): F32.9 - Major depressive disorder, single episode, unspecified (10) Nausea & vomiting Qualifiers: Vomiting type: unspecified
[2018-08-02] MEDS: *HR* OxyCODONE/APAP 5/325 TABLET PO PRN ×2 (10:38→23:22)
--- NOTE | 2018-08-02 11:07 | Nephrology Progress Note ---
Date of Encounter: 08/02/18 Time of Encounter: 11:05 - Assessment and Plan (1) ESRD (end stage renal disease) on dialysis Current Visit: Yes Status: Acute Current regimen is MWF at [place]. HD in progress for today. Lytes stable. Avoid nephrotoxins and renal dose all medications. (2) Colitis Current Visit: Yes Status: Acute Per primary/GI. Was in [facility] approximately 3 weeks ago for Colitis. Colonoscopy completed yesterday, negative for obvious mass. Repeat Colonoscopy in 2 months. (3) Fever Current Visit: Yes Status: Acute Supportive care. Qualifiers: Fever type: unspecified Qualified Code(s): R50.9 - Fever, unspecified (4) Wrist pain, acute Current Visit: Yes Status: Acute Per primary, Xray negative in ED. Qualifiers: Laterality: right Qualified Code(s): M25.531 - Pain in right wrist Subjective Principal diagnosis: fever Interval history: Pt seen and examined during HD, tolerating well. Admits to nausea/vomiting and diarrhea. Objective - Vital Signs Vital signs: Vital Signs Temp Pulse Resp BP Pulse Ox 08/02/18 07:35 99.5 F 80 17 119/52 92 08/02/18 03:56 99.1 F 76 16 127/67 92 08/01/18 23:19 100.4 F H 85 17 138/59 92 08/01/18 21:58 97 08/01/18 19:30 98.7 F 73 17 155/66 97 08/01/18 15:53 98.5 F 76 20 149/65 96 08/01/18 12:47 99.3 F 72 16 128/88 100 08/01/18 11:09 98.9 F 72 20 172/83 95 Intake and Output 08/01/18 08/02/18 08/02/18 23:59 07:59 15:59 Intake Total 100 / 100 100 / 100 30 / 30 Output Total 150 / 150 Balance 100 / 100 100 / 100 -120 / -120 Intake: IV Fluids 100 / 100 100 / 100 Flagyl Premix 500 MG/100 ML 500 100 / 100 100 / 100 mg In 100 ml @ 100 mls/hr IVPB Q8HR [facility] Rx#:[id number] Oral 30 / 30 Output: Urine 150 / 150 Other: Meal refused Percent of Meal Consumed 0% Weight 72.1 kg Blood Glucose* 115 92 - General Appearance General appearance: Present: well-developed, well-nourished EENT: Present: ATNC, hearing intact, vision intact Neck: Present: supple Respiratory: Present: clear Cardiology: Present: no edema, normal S1, normal S2 Dialysis Vascular Access: Arteriovenous Fistula thrill: Yes bruit: Yes Gastrointestinal: Present: normoactive bowel sounds, no tenderness, no guarding Integumentary: Present: no rash, warm and dry Neurologic: Present: alert and oriented x3 Psychiatric: Present: mood/affect appropriate, cooperative - Lab 08/02/18 06:58 08/02/18 06:58 Most recent lab results Calcium 8.4 mg/dL (8.6-10.3) L 08/02/18 06:58 Phosphorus 4.0 mg/dL (2.7-4.5) 08/02/18 06:58 Magnesium 1.8 mg/dL (1.6-2.6) 08/02/18 06:58 Consult Discharge Plan - Plan Referrals: Bartolo Wasbhurn MD [Primary Care Provider] -
[2018-08-02] MEDS ORDERED: Ondansetron 4 MG/2 ML VIAL IVP PRN (12:00)
--- NOTE | 2018-08-02 13:09 | Gastroenterology Progress Note ---
<Marya Marti - Last Filed: 08/02/18 14:47> Date of Encounter: 08/02/18 Time of Encounter: 13:04 - Assessment and plan (1) Abdominal pain Current Visit: Yes Status: Chronic Assessment and plan: 67-year-old female with past medical history of lung cancer and ESRD complaining of abdominal pain since 3 weeks ago when she was treated for colitis at [facility]. -Abdominal CT demonstrate persistent colitis in the descending and sigmoid colon concerning for colon cancer, secondary cystitis. -Colonoscopy 2013 no polyps per [facility] records -Stool occult negative -denied weight loss, melena, hematachezia. No family history colon cancer. -Ischemic colitis is most likely the etiology from decreased blood pressure causing the abdominal pain and findings on CT imaging. 08/01/2018 Colonoscopy: Mucosal ulceration was present and biopsies were taken. Poor preparation for procedure with stool throughout entire colon. Plan: -recommend IV abx for a couple days then transitions to PO Cipro and flagyl for a total duration of 2 weeks treatment -will plan to repeat colonoscopy in 2-3 months to re-evaluate the colon to see if colitis has resolved. Qualifiers: Abdominal location: generalized Qualified Code(s): R10.84 - Generalized abdominal pain (2) Anemia Current Visit: Yes Status: Chronic Assessment and plan: Anemia likely of chronic disease in setting of ESRD hemoglobin 7.9 (base line 10-12) hematocrit 24.4 stool occult negative no obvious active bleeding -taking folic acid -will monitor hemoglobin Qualifiers: Anemia type: due to chronic kidney disease Chronic kidney disease stage: on chronic dialysis Qualified Code(s): N18.6 - End stage renal disease; D63.1 - Anemia in chronic kidney disease; Z99.2 - Dependence on renal dialysis - Time Spent With Patient Total time spent is greater than 50% in coordination of care (as documented) at patient's floor/unit and/or counseling patient: - Subjective Interval history: Patient was seen and examined during hemodialysis. She is alert and oriented times 3. - Constitutional Vitals: Temp Pulse Resp BP Pulse Ox 99.4 F 80 16 137/57 92 08/02/18 10:55 08/02/18 07:35 08/02/18 10:55 08/02/18 12:10 08/02/18 07:35 Exam: Gen.: Vitals noted. No acute distress. AAOx3 HEENT: oropharynx clear, Normocephalic, atraumatic Cardiac: RRR, no murmur, +S1/S2 Pulmonary: CTA bilaterally, no wheezes, rales or rhonchi, equal chest expansion Abdomen: soft, left quadrant soft but minimal tender, Bowel sounds noted, no guarding MSK: ROM intact, no joint swelling noted Extremities: no BLE edema, nontender calf, no cyanosis or clubbing Neuro: A&Ox3, moves all extremities, no focal deficits Psych: Appropriate mood and behavior Results - Labs CBC & Chem 7: 08/02/18 06:58 08/02/18 06:58 Labs: Last Result Calcium 8.4 mg/dL (8.6-10.3) L 08/02/18 06:58 Entire Visit Hgb 7.9 g/dL (11.5-15.4) L 08/02/18 06:58 Hct 24.4 % (35.3-44.9) L 08/02/18 06:58 PT 14.3 Seconds (9.4-12.1) H 07/31/18 04:54 Total Bilirubin 0.4 mg/dL (0.3-1.0) 07/30/18 23:04 AST 19 Units/L (13-39) 07/30/18 23:04 ALT 12 Units/L (7-52) 07/30/18 23:04 - ABG ABG results: PT/INR, D-dimer PT 14.3 Seconds (9.4-12.1) H 07/31/18 04:54 Consult Discharge Plan - Plan Referrals: Bartolo Washburn MD [Primary Care Provider] - <Tushar Domingo - Last Filed: 08/02/18 15:00> Date of Encounter: 08/02/18 - Time Spent With Patient Total time spent is greater than 50% in coordination of care (as documented) at patient's floor/unit and/or counseling patient: - Constitutional Vitals: Temp Pulse Resp BP Pulse Ox 98.0 F 80 18 153/68 92 08/02/18 14:50 08/02/18 07:35 08/02/18 14:50 08/02/18 14:50 08/02/18 07:35 Results - Labs CBC & Chem 7: 08/02/18 06:58 10/03/18 06:58 Labs: Last Result Calcium 8.4 mg/dL (8.6-10.3) L 08/02/18 06:58 Entire Visit Hgb 7.9 g/dL (11.5-15.4) L 08/02/18 06:58 Hct 24.4 % (35.3-44.9) L 08/02/18 06:58 PT 14.3 Seconds (9.4-12.1) H 07/31/18 04:54 Total Bilirubin 0.4 mg/dL (0.3-1.0) 07/30/18 23:04 AST 19 Units/L (13-39) 07/30/18 23:04 ALT 12 Units/L (7-52) 07/30/18 23:04 - ABG ABG results: PT/INR, D-dimer PT 14.3 Seconds (9.4-12.1) H 07/31/18 04:54 - Attending Attestation I examined this patient and my medical decision-making was reviewed with the Resident Physician. I agree with the documented findings, disposition and treatment plan as described except to the extent set forth below. Patient seen examination patient has tenderness in the left lower quadrant. Assessment: Patient with ischemic colitis involving the sigmoid colon. Recommendation: IV antibiotics and switch to oral when pain is better. Patient will need a colonoscopy in 2-3 months to make sure ischemic colitis has resolved
[2018-08-02] MEDS: Insulin DETEMIR 100 UNIT/ML X5UNITS SQ SCH (21:29)
[2018-08-03 04:54] LABS: Hematocrit 28.1 % (35.3-44.9); Hemoglobin 8.9 g/dL (11.5-15.4); Mean Corpuscular HGB Conc 31.7 g/dL (31.6-35.5); Mean Corpuscular Hemoglobin 30.7 pg (28.0-33.3); Mean Corpuscular Volume 96.9 fL (83.0-100.0); Mean Platelet Volume 10.1 fL (9.4-12.4); Platelet Count 258 K/mcL (140-400); Red Cell Distribution Width 12.9 % (11.5-14.5)
[2018-08-03] MEDS: *HR* Heparin 5,000 UNIT/ML VIAL SQ SCH ×3 (05:02→23:10)
[2018-08-03 05:14] LABS: Calcium 8.4 mg/dL (8.6-10.3); Potassium 3.7 mEq/L (3.5-5.1)
[2018-08-03] MEDS: Insulin LISPRO 300 UNITS/3 ML VIAL SQ SCH ×4 (09:03→23:12)
[2018-08-03] MEDS: Sucralfate 1 GM TABLET PO SCH ×2 (09:04→17:36)
[2018-08-03] MEDS: Aspirin 81 MG TAB.CHEW PO SCH (09:05)
[2018-08-03] MEDS: Metoprolol XL (24 HR) Succ 25 MG TAB.ER.24H PO SCH (09:05)
[2018-08-03] MEDS: Folic Acid 1 MG TABLET PO SCH (09:05)
[2018-08-03] MEDS: Psyllium 1 PACKET POWD.PACK PO SCH (09:05)
[2018-08-03] MEDS: metroNIDAZOLE 500 MG TABLET PO SCH ×3 (09:12→23:11)
[2018-08-03] MEDS: *HR* OxyCODONE/APAP 5/325 TABLET PO PRN ×3 (09:12→23:11)
--- NOTE | 2018-08-03 10:30 | Nephrology Progress Note ---
Date of Encounter: 08/03/18 Time of Encounter: 10:29 - Assessment and Plan (1) ESRD (end stage renal disease) on dialysis Current Visit: Yes Status: Acute Current regimen is MWF at [place]. HD yesterday without complications. Lytes stable. Avoid nephrotoxins and renal dose all medications. (2) Colitis Current Visit: Yes Status: Acute Per primary/GI. Was in [facility] approximately 3 weeks ago for Colitis. Colonoscopy completed yesterday, negative for obvious mass. Repeat Colonoscopy in 2 months. (3) Fever Current Visit: Yes Status: Acute Supportive care. Qualifiers: Fever type: unspecified Qualified Code(s): R50.9 - Fever, unspecified (4) Wrist pain, acute Current Visit: Yes Status: Acute Per primary, Xray negative in ED. Qualifiers: Laterality: right Qualified Code(s): M25.531 - Pain in right wrist Subjective Principal diagnosis: fever Interval history: Pt seen and examined doing well. Denies CP/SOB. Admits to nausea/vomiting. Objective - Vital Signs Vital signs: Vital Signs Temp Pulse Resp BP Pulse Ox 08/03/18 07:34 98.5 F 71 16 152/66 93 08/03/18 04:52 98.3 F 69 15 159/69 96 08/03/18 01:07 99.1 F 80 15 125/63 97 08/02/18 21:56 97 08/02/18 21:04 98.9 F 73 15 154/67 97 08/02/18 16:22 99.3 F 78 17 150/62 91 08/02/18 14:50 98.0 F 18 153/68 08/02/18 13:55 146/89 08/02/18 13:40 132/61 08/02/18 13:25 158/69 08/02/18 13:10 153/62 08/02/18 12:55 149/61 08/02/18 12:40 136/57 08/02/18 12:25 134/54 08/02/18 12:10 137/57 08/02/18 11:55 142/73 08/02/18 11:40 146/61 08/02/18 11:25 135/57 08/02/18 11:10 128/55 08/02/18 10:55 99.4 F 16 153/57 Intake and Output 08/02/18 08/03/18 08/03/18 23:59 07:59 15:59 Intake Total 100 / 100 30 / 30 Output Total 0 / 0 Balance 100 / 100 30 / 30 Intake: IV Fluids 100 / 100 Flagyl Premix 500 MG/100 ML 500 100 / 100 mg In 100 ml @ 100 mls/hr IVPB Q8HR [facility] Rx#:[id number] Oral 0 / 0 30 / 30 Output: Urine 0 / 0 Other: Weight 72.7 kg Blood Glucose* 254 146 Patient Weight 08/03/18 23:59 Weight 72.7 kg - General Appearance General appearance: Present: well-developed, well-nourished EENT: Present: ATNC, hearing intact, vision intact Neck: Present: supple Respiratory: Present: clear Cardiology: Present: no edema, normal S1, normal S2 Dialysis Vascular Access: Arteriovenous Fistula thrill: Yes bruit: Yes Gastrointestinal: Present: normoactive bowel sounds, no tenderness, no guarding Integumentary: Present: no rash, warm and dry Neurologic: Present: alert and oriented x3 Psychiatric: Present: mood/affect appropriate, cooperative - Lab 08/03/18 04:36 08/03/18 04:36 Most recent lab results Calcium 8.4 mg/dL (8.6-10.3) L 08/03/18 04:36 Phosphorus 4.0 mg/dL (2.7-4.5) 08/02/18 06:58 Magnesium 1.8 mg/dL (1.6-2.6) 08/02/18 06:58 Consult Discharge Plan - Plan Referrals: Bartolo Washburn MD [Primary Care Provider] -
[2018-08-03] MEDS: MetroNIDAZOLE 500 MG/100 ML 500 MG/100 ML BAG IVPB SCH (11:35)
--- NOTE | 2018-08-03 14:11 | Internal Med Progress Note ---
Hospitalist Progress Note - Encounter Date of Encounter: 08/03/18 Time of Encounter: 14:08 - Subjective Interval History: evaluated at bedside, patient reports doing well, denies nausea or vomiting episodes. has been tolerating PO diet well. - Exam Vitals: Temp Pulse Resp BP Pulse Ox 98.3 F 67 16 137/67 97 08/03/18 11:19 08/03/18 11:19 08/03/18 11:19 08/03/18 11:19 08/03/18 11:19 Exam: General: Alert and oriented x4. No distress. Cardiovascular: RRR, Normal S1 & S2, no rubs, murmurs or gallops. Lungs: Clear lungs to auscultation bilaterally, no wheezes, rales or crackles. Abdomen: Soft, minimal tenderness to deep palpation in the LLQ. NABS in all 4 quadrants Extremities: No edema in the lower extr b/l Neurological: Normal cognition and motor skills. CN II-XII intact. Rest of the physical exam is non contributory - Assessment and Plan (1) Colitis Current Visit: Yes Status: Acute Assessment and Plan: S/P Colonoscopy: severe ischemic colitis as per report Plan Continue IV antibiotics for one more day Planning on discharging patient tomorrow on PO antibiotics as her pain has significantly improve. Will continue to follow GI recommendations Colonic Biopsy: Much of the sampled tissue consists of fibrinopurulent exudate and ulcer. The scant non-ulcerated mucosa has active colitis and the suggestion of chronic changes, although assessment is limited by the small amount of tissue. Granulomas or viral cytopathic effect are not identified. The pathologic differential diagnosis includes inflammatory bowel disease, chronic-intermittent ischemia or infection (2) ESRD (end stage renal disease) on dialysis Current Visit: Yes Status: Acute Assessment and Plan: Renal replacement therapy as per nephrology (3) Anemia Current Visit: Yes Status: Chronic Assessment and Plan: Most likely due to anemia of chronic disease. H&H stable. Will continue to monitor (4) CAD (coronary artery disease) Current Visit: Yes Status: Acute Assessment and Plan: Continue aspirin and statin. (5) Hypertension Current Visit: Yes Status: Acute Assessment and Plan: Blood pressure well controlled. Patient on metoprolol and lisinopril. (6) Diabetes mellitus Current Visit: No Status: Chronic Assessment and Plan: Blood sugar well controlled. Continue Levemir 5 units at bedtime and lispro sliding scale. Carb controlled diet. (7) Hypothyroidism Current Visit: Yes Status: Acute Assessment and Plan: Continue Levothyroxine (8) Depression Current Visit: Yes Status: Acute Assessment and Plan: Continue home dose of Mood stabilizing medications. (9) Nausea & vomiting Current Visit: Yes Status: Resolved Assessment and Plan: Continue Ondansetron 4mg/IV Q4HR PRN for nausea and vomiting Patient tolerating well PO intake. Denies feeling nauseated or vomiting. DVT Prophylaxis: Continue heparin 5000 units subcutaneous every 8 hours for DVT prophylaxis. - Summary of Assessment and Plan Summary of Assessment and Plan: Patient to remain in the hospital for 1 more day to continue IV antibiotics. Planning on discharging patient on PO antibiotics tomorrow. - Time Spent with Patient Total time spent is greater than 50% in coordination of care (as documented) at patient's floor/unit and/or counseling patient: 25 - 35 minutes Plan of Care Discussed with: patient (the nurse.) Internal Medicine: Result - Labs CBC & Chem 7: 08/03/18 04:36 08/03/18 04:36 Labs: Short CBC 08/03/18 Range/Units 04:36 WBC 4.7 (4.3-11.1) K/mcL Hgb 8.9 L (11.5-15.4) g/dL Hct 28.1 L (35.3-44.9) % Plt Count 258 (140-400) K/mcL BMP 08/03/18 04:36 Sodium 134 L Potassium 3.7 Chloride 97 L Carbon Dioxide 29 BUN 9 Creatinine 2.30 H Glucose 119 H Calcium 8.4 L - ABG Interpretation ABG results: PT/INR, D-dimer PT 14.3 Seconds (9.4-12.1) H 07/31/18 04:54 Consult Discharge Plan - Plan Referrals: Bartolo Washburn MD [Primary Care Provider] - (3) Anemia Qualifiers: Anemia type: due to chronic kidney disease Chronic kidney disease stage: on chronic dialysis Qualified Code(s): N18.6 - End stage renal disease; D63.1 - Anemia in chronic kidney disease; Z99.2 - Dependence on renal dialysis (4) CAD (coronary artery disease) Qualifiers: Coronary Disease-Associated Artery/Lesion type: unspecified vessel or lesion type [place] vs. transplanted heart: unspecified whether [place] or transplanted heart Associated angina: angina presence unspecified Qualified Code(s): I25.10 - Atherosclerotic heart disease of [place] coronary artery without angina pectoris (5) Hypertension Qualifiers: Hypertension type: unspecified Qualified Code(s): I10 - Essential (primary) hypertension (6) Diabetes mellitus Qualifiers: Diabetes mellitus type: type 2 Diabetes mellitus longterm insulin use: with longterm use Diabetes mellitus complication status: with kidney complications Diabetes mellitus complication detail: with chronic kidney disease Chronic kidney disease stage: on chronic dialysis Qualified Code(s): E11.22 - Type 2 diabetes mellitus with diabetic chronic kidney disease; N18.6 - End stage renal disease; Z79.4 - manager long term care (current) use of insulin; Z99.2 - Dependence on renal dialysis (7) Hypothyroidism Qualifiers: Hypothyroidism type: unspecified Qualified Code(s): E03.9 - Hypothyroidism, unspecified (8) Depression Qualifiers: Depression Type: unspecified Qualified Code(s): F32.9 - Major depressive disorder, single episode, unspecified (9) Nausea & vomiting Qualifiers: Vomiting type: unspecified
[2018-08-03] MEDS: Insulin DETEMIR 100 UNIT/ML X5UNITS SQ SCH (23:10)
[2018-08-04] MEDS: *HR* Heparin 5,000 UNIT/ML VIAL SQ SCH ×2 (06:06→12:50)
[2018-08-04 07:07] LABS: Hemoglobin 8.5 g/dL (11.5-15.4); Red Blood Count 2.76 M/mcL (3.82-4.97)
[2018-08-04 07:08] LABS: Basophils % 0.8 %; Eosinophils # 0.2 K/mcL (0.0-0.6); Eosinophils % 3.5 %; Hematocrit 26.7 % (35.3-44.9); Immature Granulocytes % 0.6 % (0-4); Lymphocytes # 1.5 K/mcL (0.6-4.6); Lymphocytes % 30.6 %; Mean Corpuscular HGB Conc 31.8 g/dL (31.6-35.5); Mean Corpuscular Hemoglobin 30.8 pg (28.0-33.3); Mean Corpuscular Volume 96.7 fL (83.0-100.0); Mean Platelet Volume 10.5 fL (9.4-12.4); Monocytes # 0.9 K/mcL (0.0-1.3); Monocytes % 19.3 %; Neutrophils # 2.2 K/mcL (1.6-8.9); Platelet Count 274 K/mcL (140-400); Segmented Neutrophils % 45.2 %
[2018-08-04 07:09] LABS: Magnesium 1.8 mg/dL (1.6-2.6); Phosphorous 3.6 mg/dL (2.7-4.5)
[2018-08-04 07:17] LABS: Calcium 8.4 mg/dL (8.6-10.3); Potassium 3.8 mEq/L (3.5-5.1)
[2018-08-04] MEDS ORDERED: 0.9 % Sodium Chloride 250 ML IVC PRN (07:33)
[2018-08-04] MEDS ORDERED: 0.9 % Sodium Chloride 1,000 ML PRIME SCH (07:45)
[2018-08-04] MEDS: Insulin LISPRO 300 UNITS/3 ML VIAL SQ SCH ×2 (07:50→11:41)
[2018-08-04] MEDS: metroNIDAZOLE 500 MG TABLET PO SCH (08:04)
[2018-08-04] MEDS: Sucralfate 1 GM TABLET PO SCH (08:06)
[2018-08-04] MEDS: Aspirin 81 MG TAB.CHEW PO SCH (08:07)
[2018-08-04] MEDS: Folic Acid 1 MG TABLET PO SCH (08:07)
[2018-08-04] MEDS: Psyllium 1 PACKET POWD.PACK PO SCH (08:12)
--- NOTE | 2018-08-04 08:19 | Discharge Summary ---
- NOTES TO OUTPATIENT PROVIDER Notes to Outpatient Provider: Follow-up with gastroenterology within a month of hospital discharge. Orders not resulted at time of discharge: Pending orders 08/04/18 06:29 CBC [Complete Blood Count] [HEME] AM 0400 08/05/18 04:00 Basic Metabolic Panel AM 0400 CBC no Diff [Complete Blood Count w/o Diff] [HEME] AM 0400 08/06/18 04:00 Basic Metabolic Panel AM 0400 CBC no Diff [Complete Blood Count w/o Diff] [HEME] AM 0400 Date of Encounter: 08/06/18 Time of Encounter: 08:13 - Discharge Diagnosis (1) Colitis Priority: Primary Status: Acute Assessment and Plan: S/P Colonoscopy: severe ischemic colitis as per report Colonic Biopsy: Much of the sampled tissue consists of fibrinopurulent exudate and ulcer. The scant non-ulcerated mucosa has active colitis and the suggestion of chronic changes, although assessment is limited by the small amount of tissue. Granulomas or viral cytopathic effect are not identified. The pathologic differential diagnosis includes inflammatory bowel disease, chronic-intermittent ischemia or infection (2) ESRD (end stage renal disease) on dialysis Priority: Secondary Status: Chronic (3) Anemia Priority: Secondary Status: Chronic Qualifiers: Anemia type: due to chronic kidney disease Chronic kidney disease stage: on chronic dialysis Qualified Code(s): N18.6 - End stage renal disease; D63.1 - Anemia in chronic kidney disease; Z99.2 - Dependence on renal dialysis (4) CAD (coronary artery disease) Priority: Secondary Status: Chronic Qualifiers: Coronary Disease-Associated Artery/Lesion type: unspecified vessel or lesion type [place] vs. transplanted heart: unspecified whether [place] or transplanted heart Associated angina: angina presence unspecified Qualified Code(s): I25.10 - Atherosclerotic heart disease of [place] coronary artery without angina pectoris (5) Hypertension Priority: Secondary Status: Chronic Qualifiers: Hypertension type: unspecified Qualified Code(s): I10 - Essential (primary ) hypertension (6) Diabetes mellitus Priority: Secondary Status: Chronic Qualifiers: Diabetes mellitus type: type 2 Diabetes mellitus compensation consulting manager insulin use: with half-way use Diabetes mellitus complication status: with kidney complications Diabetes mellitus complication detail: with chronic kidney disease Chronic kidney disease stage: on chronic dialysis Qualified Code(s) : E11.22 - Type 2 diabetes mellitus with diabetic chronic kidney disease; N18.6 - End stage renal disease; Z79.4 - congregational care pastor (current) use of insulin; Z99.2 - Dependence on renal dialysis (7) Hypothyroidism Priority: Secondary Status: Chronic Qualifiers: Hypothyroidism type: unspecified Qualified Code(s): E03.9 - Hypothyroidism , unspecified (8) Depression Priority: Secondary Status: Chronic Qualifiers: Depression Type: unspecified Qualified Code(s): F32.9 - Major depressive disorder, single episode, unspecified Hospital course: Ms. Dan is a 67 year old female past medical history of arthritis, cancer , coronary artery disease, diabetes, dialysis, GERD, hyperlipidemia, hypertension, myocardial infarction, renal disease. Patient recently diagnosed with colitis discharged home on PO antibiotics but returned to the emergency room a couple of days later complaining of worsening abdominal pain, nausea and vomiting. Patient re-started on IV antibiotics a GI consulted. Colonoscopy done which showed a continuous area of nonbleeding ulcerated mucosa from 25-35 cm from the anal margin very suspicious of severe ischemic colitis. GI recommended to keep patient on IV antibiotics for a few days before transitioning to PO and to have a repeat Colonoscopy in 1-2 months. Renal replacement therapy was continued as scheduled. Patient abdominal pain has significantly improved, patient tolerating oral diet. Transition to PO antibiotics, hemodynamically stable to be discharged. - Time Spent with Patient Total time spent providing and/or coordinating discharge services: Less than 30 minutes - Discharge Medications Prescriptions: Ciprofloxacin [Cipro] 500 mg PO Q24H 10 Days #10 tablet metroNIDAZOLE [Flagyl] 500 mg PO TID 10 Days #30 tablet Home Medications: Folic Acid 1 mg PO DAILY 07/10/15 [History] Levothyroxine [Synthroid] 50 mcg PO QAM 07/10/15 [History] Pantoprazole Sodium [Protonix] 40 mg PO BID 07/10/15 [History] Solifenacin Succinate [Vesicare] 10 mg PO DAILY 07/10/15 [History] Aspirin 81 mg PO DAILY #30 tab.chew 02/18/16 [Rx] Metoprolol XL (24 HR) Succ [Toprol Xl] 12.5 mg PO DAILY #30 tab.er.24h 02/18/16 [Rx] Docusate [Colace] 100 mg PO BID 10/14/16 [History] Albuterol Sulfate [Proair Hfa] 2 puff IH Q4H PRN 03/17/17 [History] Atorvastatin [Lipitor] 40 mg PO HS 03/17/17 [History] Clopidogrel [Plavix] 75 mg PO DAILY 05/09/17 [History] Ondansetron ODT [Zofran ODT] 4 mg PO Q8H PRN 05/09/17 [History] Sucralfate [Carafate] 1 gm PO 0730,1630 05/09/17 [History] Folic Acid/Vit Bcomp,C [Renal-Elizabeth Tablet] 0.8 mg PO DAILY 03/01/18 [History] Furosemide [Lasix] 20 mg PO DAILY 03/01/18 [History] Amitriptyline [Elavil] 25 mg PO HS 03/26/18 [History] DULoxetine [Cymbalta] 30 mg PO Q48H 03/26/18 [History] Ergocalciferol (VITAMIN D2) [Drisdol] 50,000 unit PO MO 03/26/18 [History] Insulin ASPART [NovoLOG] 2 - 8 unit SQ TID 03/26/18 [History] Insulin DETEMIR [Levemir] 12 unit SQ QAM 03/26/18 [History] Tamsulosin [Flomax] 0.4 mg PO DAILY 03/26/18 [History] Zolpidem [Ambien] 5 mg PO HS 03/26/18 [History] Lactobacillus Combination No.8 [Adult Probiotic] 1 cap PO DAILY 05/04/18 [ History] Pramipexole Di-HCl [Pramipexole Dihydrochloride] 0.125 mg PO HS 05/04/18 [ History] Promethazine [Phenergan] 25 mg PO TID PRN 05/04/18 [History] Psyllium Husk [Daily Fiber] 0.52 gm PO DAILY 05/04/18 [History] SUMAtriptan Succinate [Imitrex] 6 mg SQ BID PRN 05/04/18 [History] OxyCODONE/APAP 5/325 [Percocet 5/325 MG] 1 tab PO TID PRN 3 Days #9 tablet 07/30 [Rx] Baclofen [Lioresal] 10 mg PO TID PRN 07/31/18 [History] Lisinopril [Zestril] 20 mg PO DAILY 07/31/18 [History] Mirtazapine [Remeron] 15 mg PO HS 07/31/18 [History] Ciprofloxacin [Cipro] 500 mg PO Q24H 10 Days #10 tablet 08/04/18 [Rx] metroNIDAZOLE [Flagyl] 500 mg PO TID 10 Days #30 tablet 08/04/18 [Rx] Insulin DETEMIR [Levemir Flextouch] 14 unit SQ QPM 08/06/18 [History] Allergies/Adverse Reactions: 3 Allergy/AdvReac Type Severity Reaction Status Date / Time adhesive tape Allergy Redness of Verified 07/15/18 11:57 Skin latex Allergy Swelling Verified 07/15/18 11:57 of Lip/Tongue/Throat Sulfa (Sulfonamide Allergy Rash Verified 07/15/18 11:57 Antibiotics) Date of admission: 07/31/18 03:30 Primary care physician: Bartolo Washburn MD Consults: 07/31/18 09:06 Consult to Rabbit Dresser [CONS] Routine Reason for SW Consult: return to [facility] 07/31/18 09:15 Consult to Dialysis [CONS] ONCE 08/02/18 09:45 Consult to Dialysis [CONS] ONCE 08/03/18 14:11 Consult to Occupational Therapy [CONS] Routine Comment: Evaluate, develop and implement POC Reason for Consult: ecf Does patient have active BEDREST order?: No Is patient medically & hemodynamically stable?: Yes Consult to Physical Therapy [CONS] Routine Comment: Evaluate, develop and implement POC Reason for Consult: ecf Does patient have active BEDREST order?: No Is patient medically & hemodynamically stable?: Yes 08/04/18 07:45 Consult to Dialysis [CONS] ONCE - Constitutional Vitals: Temp Pulse Resp BP Pulse Ox 98.9 F 69 17 149/70 92 08/04/18 07:34 08/04/18 07:34 08/04/18 07:34 08/04/18 07:34 08/04/18 07:34 Exam: General: Alert and oriented x4. No distress. Cardiovascular: RRR, Normal S1 & S2, no rubs, murmurs or gallops. Lungs: Clear lungs to auscultation bilaterally, no wheezes, rales or crackles. Abdomen: Soft, minimal tenderness to deep palpation in the LLQ. NABS in all 4 quadrants Extremities: No edema in the lower extr b/l Neurological: Normal cognition and motor skills. CN II-XII intact. Rest of the physical exam is non contributory - Patient Status Disposition: Home, Self-Care Condition: Good Functional capacity at discharge: independent ambulation Overall status at discharge: patient is progressing back to baseline - Discharge Instructions Follow Up With: Bartolo Washburn MD [Primary Care Provider] - 08/10/18 1:15 pm (Follow-up as scheduled.) Tushar Domingo MD [Partnered Physician] - 10/04/18 2:45 pm (Follow-up as scheduled. ) - Diet and Activity Activity: resume usual activities as tolerated Diet: advance to your usual diet
--- NOTE | 2018-08-04 08:28 | Physician Discharge Referral ---
ExtendedCare Referral Info Transfer To: SNF - Diagnosis (1) Colitis Priority: Primary Status: Acute (2) ESRD (end stage renal disease) on dialysis Priority: Secondary Status: Chronic (3) Anemia Priority: Secondary Status: Chronic (4) CAD (coronary artery disease) Priority: Secondary Status: Chronic (5) Hypertension Priority: Secondary Status: Chronic (6) Diabetes mellitus Priority: Secondary Status: Chronic (7) Hypothyroidism Priority: Secondary Status: Chronic (8) Depression Priority: Secondary Status: Chronic (9) Nausea & vomiting Priority: Secondary Status: Resolved Prognosis: Good Aware of Diagnosis: Patient Aware of Prognosis: Patient - Transfer Medications Prescriptions: Ciprofloxacin [Cipro] 500 mg PO Q24H 10 Days #10 tablet metroNIDAZOLE [Flagyl] 500 mg PO TID 10 Days #30 tablet Home Medications: Folic Acid 1 mg PO DAILY 07/10/15 [History] Levothyroxine [Synthroid] 50 mcg PO QAM 07/10/15 [History] Pantoprazole Sodium [Protonix] 40 mg PO BID 07/10/15 [History] Solifenacin Succinate [Vesicare] 10 mg PO DAILY 07/10/15 [History] Aspirin 81 mg PO DAILY #30 tab.chew 02/18/16 [Rx] Metoprolol XL (24 HR) Succ [Toprol Xl] 12.5 mg PO DAILY #30 tab.er.24h 02/18/16 [Rx] Docusate [Colace] 100 mg PO BID 10/14/16 [History] Albuterol Sulfate [Proair Hfa] 2 puff IH Q4H PRN 03/17/17 [History] Atorvastatin [Lipitor] 40 mg PO HS 03/17/17 [History] Clopidogrel [Plavix] 75 mg PO DAILY 05/09/17 [History] Ondansetron ODT [Zofran ODT] 4 mg PO Q8H PRN 05/09/17 [History] Sucralfate [Carafate] 1 gm PO 0730,1630 05/09/17 [History] Folic Acid/Vit Bcomp,C [Renal-Elizabeth Tablet] 0.8 mg PO DAILY 03/01/18 [History] Furosemide [Lasix] 20 mg PO DAILY 03/01/18 [History] Amitriptyline [Elavil] 25 mg PO HS 03/26/18 [History] DULoxetine [Cymbalta] 30 mg PO DAILY 03/26/18 [History] Ergocalciferol (VITAMIN D2) [Drisdol] 50,000 unit PO MO 03/26/18 [History] Insulin ASPART [NovoLOG] 10 unit SQ BID 03/26/18 [History] Insulin DETEMIR [Levemir] 12 - 14 unit SQ BID 03/26/18 [History] Tamsulosin [Flomax] 0.4 mg PO DAILY 03/26/18 [History] Zolpidem [Ambien] 5 mg PO HS 03/26/18 [History] Lactobacillus Combination No.8 [Adult Probiotic] 1 cap PO DAILY 05/04/18 [ History] Pramipexole Di-HCl [Pramipexole Dihydrochloride] 0.125 mg PO HS 05/04/18 [ History] Promethazine [Phenergan] 25 mg PO TID PRN 05/04/18 [History] Psyllium Husk [Daily Fiber] 0.52 gm PO DAILY 05/04/18 [History] SUMAtriptan Succinate [Imitrex] 6 mg SQ BID PRN 05/04/18 [History] OxyCODONE/APAP 5/325 [Percocet 5/325 MG] 1 tab PO TID PRN 3 Days #9 tablet 07/30 [Rx] Baclofen [Lioresal] 10 mg PO TID PRN 07/31/18 [History] Lisinopril [Zestril] 20 mg PO DAILY 07/31/18 [History] Mirtazapine [Remeron] 15 mg PO HS 07/31/18 [History] Ciprofloxacin [Cipro] 500 mg PO Q24H 10 Days #10 tablet 08/04/18 [Rx] metroNIDAZOLE [Flagyl] 500 mg PO TID 10 Days #30 tablet 08/04/18 [Rx] Allergies/Adverse Reactions: 3 Allergy/AdvReac Type Severity Reaction Status Date / Time adhesive tape Allergy Redness of Verified 07/15/18 11:57 Skin latex Allergy Swelling Verified 07/15/18 11:57 of Lip/Tongue/Throat Sulfa (Sulfonamide Allergy Rash Verified 07/15/18 11:57 Antibiotics) - Respiratory Orders None Smoking Cessation: Smoking cessation has been advised. For more information, call the [place] Tobacco Quit Line at 7-716-BTNT-NOW. - Advance Directives Code Status: Full Code - Mobility Orders Ambulate - Rehabiliation Orders Rehab Potential: Good - Diet Orders Regular CERTIFICATION: I certify that the transfer of the above named patient to an Extended Care Facility is necessary for the continuing treatment of the diagnosis listed. The above information is true and accurate reflection of patient's current condition. Confidential - Redisclosure prohibited without a patient's written consent.
[2018-08-04] MEDS ORDERED: 0.9 % Sodium Chloride 1,000 ML ONE (08:35)
[2018-08-04 12:48] VITALS: BP 156/74
[2018-08-04] MEDS: Metoprolol XL (24 HR) Succ 25 MG TAB.ER.24H PO SCH (12:55)
== END 2018-08-04 13:11 | disposition home or self-care (01) | DRG 393 ==
LOC: 2ANU 21:49 → EMEROOARM 21:49 → 2ANU 07-31 01:55 → SUATTDRO 07-31 03:30
PROVIDERS: ADMIT Internal Medicine; ATTEND Internal Medicine
PROC: ENDOCBX (2018-08-01 14:00)

== ENCOUNTER 2018-08-06 11:11 | Inpatient (IN) ==
--- NOTE | 2018-08-06 11:29 | Emergency Department Note ---
Disposition Clinical Impression: Altered mental status, UTI (urinary tract infection) Disposition: Admitted As Inpatient Condition: Good Referrals: Bartolo Washburn MD [Primary Care Provider] - Forms: ED Satisfaction Letter General Adult HPI - General Stated complaint: Low Sugar Time Seen by Provider: 08/06/18 11:12 Source: EMS Limitations: altered mental status - History of Present Illness Pain Scale: 0 - Related Data Home Medications Medication Instructions Recorded Confirmed Folic Acid 1 mg PO DAILY 07/10/15 07/31/18 Levothyroxine [Synthroid] 50 mcg PO QAM 07/10/15 07/31/18 Pantoprazole Sodium [Protonix] 40 mg PO BID 07/10/15 07/31/18 Solifenacin Succinate [Vesicare] 10 mg PO DAILY 07/10/15 07/31/18 Docusate [Colace] 100 mg PO BID 10/14/16 07/31/18 Albuterol Sulfate [Proair Hfa] 2 puff IH Q4H PRN 03/17/17 07/31/18 Atorvastatin [Lipitor] 40 mg PO HS 03/17/17 07/31/18 Clopidogrel [Plavix] 75 mg PO DAILY 05/09/17 07/31/18 Ondansetron ODT [Zofran ODT] 4 mg PO Q8H PRN 05/09/17 07/31/18 Sucralfate [Carafate] 1 gm PO 0730,1630 05/09/17 07/31/18 Folic Acid/Vit Bcomp,C [Renal-Elizabeth 0.8 mg PO DAILY 03/01/18 07/31/18 Tablet] Furosemide [Lasix] 20 mg PO DAILY 03/01/18 07/31/18 Amitriptyline [Elavil] 25 mg PO HS 03/26/18 07/31/18 DULoxetine [Cymbalta] 30 mg PO DAILY 03/26/18 07/31/18 Ergocalciferol (VITAMIN D2) 50,000 unit PO MO 03/26/18 07/31/18 [Drisdol] Insulin ASPART [NovoLOG] 10 unit SQ BID 03/26/18 07/31/18 Insulin DETEMIR [Levemir] 12 - 14 unit SQ BID 03/26/18 07/31/18 Tamsulosin [Flomax] 0.4 mg PO DAILY 03/26/18 07/31/18 Zolpidem [Ambien] 5 mg PO HS 03/26/18 07/31/18 Lactobacillus Combination No.8 1 cap PO DAILY 05/04/18 07/31/18 [Adult Probiotic] Pramipexole Di-HCl [Pramipexole 0.125 mg PO HS 05/04/18 07/31/18 Dihydrochloride] Promethazine [Phenergan] 25 mg PO TID PRN 05/04/18 07/31/18 Psyllium Husk [Daily Fiber] 0.52 gm PO DAILY 05/04/18 07/31/18 SUMAtriptan Succinate [Imitrex] 6 mg SQ BID PRN 05/04/18 07/31/18 Baclofen [Lioresal] 10 mg PO TID PRN 07/31/18 07/31/18 Lisinopril [Zestril] 20 mg PO DAILY 07/31/18 07/31/18 Mirtazapine [Remeron] 15 mg PO HS 07/31/18 07/31/18 Previous Rx's Medication Instructions Recorded Aspirin 81 mg PO DAILY #30 tab.chew 02/18/16 Metoprolol XL (24 HR) Succ [Toprol 12.5 mg PO DAILY #30 tab.er.24h 02/18/16 Xl] OxyCODONE/APAP 5/325 [Percocet 1 tab PO TID PRN 3 Days #9 tablet 07/30/18 5/325 MG] Ciprofloxacin [Cipro] 500 mg PO Q24H 10 Days #10 tablet 08/04/18 metroNIDAZOLE [Flagyl] 500 mg PO TID 10 Days #30 tablet 08/04/18 Allergies Allergy/AdvReac Type Severity Reaction Status Date / Time adhesive tape Allergy Redness of Verified 07/15/18 11:57 Skin latex Allergy Swelling Verified 07/15/18 11:57 of Lip/Tongue/Throat Sulfa (Sulfonamide Allergy Rash Verified 07/15/18 11:57 Antibiotics) Past Medical History - Past Medical History Medical history: Reports: arthritis, cancer, coronary artery disease, diabetes, dialysis, GERD, hyperlipidemia, hypertension, myocardial infarction, renal disease, other Surgical history: Reports: appendectomy, cholecystectomy, coronary bypass (CABG) , hysterectomy, ureteral stent, other Psychiatric history: Reports: anxiety, depression 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 - Social History Smoking Status: Former smoker Smokeless Tobacco Status: No Alcohol use: Reports: none Drug use: Reports: none Physical Exam - General Limitations: altered mental status General appearance: in distress Course Vital Signs Temperature 98.1 F 08/06/18 11:13 Pulse Rate 87 08/06/18 11:13 Respiratory Rate 22 08/06/18 11:13 Blood Pressure 151/101 08/06/18 11:13 O2 Sat by Pulse Oximetry 88 08/06/18 11:13 Temperature 98.1 F 08/06/18 11:13 Pulse Rate 78 08/06/18 12:51 Respiratory Rate 18 08/06/18 12:51 Blood Pressure 176/66 08/06/18 12:51 O2 Sat by Pulse Oximetry 100 08/06/18 12:51 Oxygen Delivery Oxygen Delivery Nasal Cannula Medical Decision Making - Lab Data Result diagrams: 08/06/18 12:13 08/06/18 12:13 Lab Results 08/06/18 08/06/18 08/06/18 Range/Units 11:50 12:13 12:13 WBC 9.4 D (4.3-11.1) K/mcL RBC 3.23 L (3.82-4.97) M/mcL Hgb 9.9 L (11.5-15.4) g/dL Hct 31.2 L (35.3-44.9) % MCV 96.6 (83.0-100.0) fL MCH 30.7 (28.0-33.3) pg MCHC 31.7 (31.6-35.5) g/dL RDW 12.8 (11.5-14.5) % Plt Count 301 (140-400) K/mcL MPV 10.1 (9.4-12.4) fL Immature Gran % 0.7 (0-4) % Seg Neutrophils % 77.7 % Lymphocytes % 11.4 % Monocytes % 8.8 % Eosinophils % 1.1 % Basophils % 0.3 % Neutrophils # 7.3 (1.6-8.9) K/mcL Lymphocytes # 1.1 (0.6-4.6) K/mcL Monocytes # 0.8 (0.0-1.3) K/mcL Eosinophils # 0.1 (0.0-0.6) K/mcL Basophils # 0.0 (0.0-0.2) K/mcL PT 14.1 H (9.4-12.1) Seconds INR 1.3 Sodium (136-145) mEq/L Potassium (3.5-5.1) mEq/L Chloride (98-107) mEq/L Carbon Dioxide (23-29) mEq/L BUN (8-23) mg/dL Creatinine (0.60-1.20) mg/dL Est GFR ( Amer) (> 60) Est GFR (Non-Af Amer) (> 60) BUN/Creatinine Ratio (6-26) Glucose (70-105) mg/dL Calculated Osmolality (280-300) Lactic Acid (0.5-2.2) mmol/L Calcium (8.6-10.3) mg/dL Total Bilirubin (0.3-1.0) mg/dL Direct Bilirubin (0.0-0.2) mg/dL Indirect Bilirubin (0.0-1.2) mg/dL AST (13-39) Units/L ALT (7-52) Units/L Alkaline Phosphatase (34-104) Units/L Troponin I (< 0.04) ng/mL Serum Total Protein (6.4-8.9) g/dL Albumin (3.5-5.7) g/dL Globulin (2.4-3.5) g/dL Albumin/Globulin Ratio (1.1-2.2) Urine Color Yellow (Yellow) Urine Clarity Cloudy A (Clear) Urine pH 8.0 (5.0-8.0) pH Units Ur Specific [place] < 1.005 L (1.010-1.025) Urine Protein >=300 H (Neg-Trace) mg/dL Urine Glucose (UA) 100 H (Normal) mg/dL Urine Ketones Negative (Negative) mg/dL Urine Blood Moderate H (Negative) Urine Nitrite Negative (Negative) Urine Bilirubin Negative (Negative) Urine Urobilinogen Normal (Normal) mg/dL Ur Leukocyte Esterase Large H (Negative) Urine Microscopic RBC 5-15 H (0-3) per hpf Urine Microscopic WBC TNTC H (0-3) per hpf Ur Squamous Epith Cells Many H (None-Few) per lpf Urine Bacteria None Seen (None-Few) per hpf Urine Yeast Few H (None Seen) per hpf Ur Culture Indicated? NO. A (NO) 08/06/18 08/06/18 Range/Units 12:13 12:13 WBC (4.3-11.1) K/mcL RBC (3.82-4.97) M/mcL Hgb (11.5-15.4) g/dL Hct (35.3-44.9) % MCV (83.0-100.0) fL MCH (28.0-33.3) pg MCHC (31.6-35.5) g/dL RDW (11.5-14.5) % Plt Count (140-400) K/mcL MPV (9.4-12.4) fL Immature Gran % (0-4) % Seg Neutrophils % % Lymphocytes % % Monocytes % % Eosinophils % % Basophils % % Neutrophils # (1.6-8.9) K/mcL Lymphocytes # (0.6-4.6) K/mcL Monocytes # (0.0-1.3) K/mcL Eosinophils # (0.0-0.6) K/mcL Basophils # (0.0-0.2) K/mcL PT (9.4-12.1) Seconds INR Sodium 132 L (136-145) mEq/L Potassium 3.7 (3.5-5.1) mEq/L Chloride 96 L (98-107) mEq/L Carbon Dioxide 27 (23-29) mEq/L BUN 16 (8-23) mg/dL Creatinine 3.38 H (0.60-1.20) mg/dL Est GFR ( Amer) 16 L (> 60) Est GFR (Non-Af Amer) 13 L (> 60) BUN/Creatinine Ratio 5 L (6-26) Glucose 161 H (70-105) mg/dL Calculated Osmolality 279 L (280-300) Lactic Acid 1.3 (0.5-2.2) mmol/L Calcium 9.0 (8.6-10.3) mg/dL Total Bilirubin 0.4 (0.3-1.0) mg/dL Direct Bilirubin 0.0 (0.0-0.2) mg/dL Indirect Bilirubin 0.4 (0.0-1.2) mg/dL AST 26 (13-39) Units/L ALT 12 (7-52) Units/L Alkaline Phosphatase 92 (34-104) Units/L Troponin I < 0.03 (< 0.04) ng/mL Serum Total Protein 6.8 (6.4-8.9) g/dL Albumin 3.0 L (3.5-5.7) g/dL Globulin 3.8 H (2.4-3.5) g/dL Albumin/Globulin Ratio 0.8 L (1.1-2.2) Urine Color (Yellow) Urine Clarity (Clear) Urine pH (5.0-8.0) pH Units Ur Specific [place] (1.010-1.025) Urine Protein (Neg-Trace) mg/dL Urine Glucose (UA) (Normal) mg/dL Urine Ketones (Negative) mg/dL Urine Blood (Negative) Urine Nitrite (Negative) Urine Bilirubin (Negative) Urine Urobilinogen (Normal) mg/dL Ur Leukocyte Esterase (Negative) Urine Microscopic RBC (0-3) per hpf Urine Microscopic WBC (0-3) per hpf Ur Squamous Epith Cells (None-Few) per lpf Urine Bacteria (None-Few) per hpf Urine Yeast (None Seen) per hpf Ur Culture Indicated? (NO) Critical Care Time Critical Care Time: Yes Total Critical Care Time: 30 Attestation: The high probability of a clinically significant, sudden or life threatening deterioration of the [] system(s) required my full and direct attention, intervention and personal management. The aggregate critical care time was [] minutes. This time is in addition to time spent performing reported procedures but includes the following: [] Data Review and interpretation [] Patient assessment and monitoring of vital signs [] Documentation [] Medication orders and management Attestation Statement - Attestation Attestation: I examined this patient and my medical decision-making was reviewed with the Resident Physician. I agree with the documented findings, disposition and treatment plan as described except to the extent set forth below. [id number] time provided Patient arrives by EMS from the [facility] with altered mentation and hypoglycemia. She is tachypneic and confused on exam. She is slow to answer questions and does not answer her name. I did review her baseline medication list. She states she did not miss dialysis. She has poor peripheral IV access so a left sided 18-gauge external jugular line was placed upon arrival. Workup to evaluate for acute metabolic or infectious cause initiated. CT head ordered to evaluate for intracranial etiology. We are uncertain the onset of the patient's symptoms 12:09: The medical student called the [facility]. The patient's changes in mentation began yesterday waxing and waning
--- NOTE | 2018-08-06 11:36 | Emergency Department Note ---
Disposition Clinical Impression: Altered mental status Qualifiers: Altered mental status type: unspecified Qualified Code(s): R41.82 - Altered mental status, unspecified UTI (urinary tract infection) Qualifiers: Urinary tract infection type: acute cystitis Hematuria presence: with hematuria Qualified Code(s): N30.01 - Acute cystitis with hematuria Disposition: Admitted As Inpatient Condition: Good Referrals: Bartolo Washburn MD [Primary Care Provider] - Forms: ED Satisfaction Letter Time of Disposition: 13:05 General Adult HPI - General Chief complaint: ED Altered Mental Status Stated complaint: Low Sugar Time Seen by Provider: 08/06/18 11:12 Source: EMS Limitations: altered mental status Nursing Notes Reviewed: Yes Vital Signs Reviewed: Yes - History of Present Illness HPI Narrative: 67-year-old female presents to the emergency department via EMS as she was having worsening mental status. Reporting that she was hypoglycemic with a glucose of 64. Patient was given glucagon prior to arrival. On insulin. Pain Scale: 0 - Related Data Home Medications Medication Instructions Recorded Confirmed Folic Acid 1 mg PO DAILY 07/10/15 07/31/18 Levothyroxine [Synthroid] 50 mcg PO QAM 07/10/15 07/31/18 Pantoprazole Sodium [Protonix] 40 mg PO BID 07/10/15 07/31/18 Solifenacin Succinate [Vesicare] 10 mg PO DAILY 07/10/15 07/31/18 Docusate [Colace] 100 mg PO BID 10/14/16 07/31/18 Albuterol Sulfate [Proair Hfa] 2 puff IH Q4H PRN 03/17/17 07/31/18 Atorvastatin [Lipitor] 40 mg PO HS 03/17/17 07/31/18 Clopidogrel [Plavix] 75 mg PO DAILY 05/09/17 07/31/18 Ondansetron ODT [Zofran ODT] 4 mg PO Q8H PRN 05/09/17 07/31/18 Sucralfate [Carafate] 1 gm PO 0730,1630 05/09/17 07/31/18 Folic Acid/Vit Bcomp,C [Renal-Elizabeth 0.8 mg PO DAILY 03/01/18 07/31/18 Tablet] Furosemide [Lasix] 20 mg PO DAILY 03/01/18 07/31/18 Amitriptyline [Elavil] 25 mg PO HS 03/26/18 07/31/18 DULoxetine [Cymbalta] 30 mg PO DAILY 03/26/18 07/31/18 Ergocalciferol (VITAMIN D2) 50,000 unit PO MO 03/26/18 07/31/18 [Drisdol] Insulin ASPART [NovoLOG] 10 unit SQ BID 03/26/18 07/31/18 Insulin DETEMIR [Levemir] 12 - 14 unit SQ BID 03/26/18 07/31/18 Tamsulosin [Flomax] 0.4 mg PO DAILY 03/26/18 07/31/18 Zolpidem [Ambien] 5 mg PO HS 03/26/18 07/31/18 Lactobacillus Combination No.8 1 cap PO DAILY 05/04/18 07/31/18 [Adult Probiotic] Pramipexole Di-HCl [Pramipexole 0.125 mg PO HS 05/04/18 07/31/18 Dihydrochloride] Promethazine [Phenergan] 25 mg PO TID PRN 05/04/18 07/31/18 Psyllium Husk [Daily Fiber] 0.52 gm PO DAILY 05/04/18 07/31/18 SUMAtriptan Succinate [Imitrex] 6 mg SQ BID PRN 05/04/18 07/31/18 Baclofen [Lioresal] 10 mg PO TID PRN 07/31/18 07/31/18 Lisinopril [Zestril] 20 mg PO DAILY 07/31/18 07/31/18 Mirtazapine [Remeron] 15 mg PO HS 07/31/18 07/31/18 Previous Rx's Medication Instructions Recorded Aspirin 81 mg PO DAILY #30 tab.chew 02/18/16 Metoprolol XL (24 HR) Succ [Toprol 12.5 mg PO DAILY #30 tab.er.24h 02/18/16 Xl] OxyCODONE/APAP 5/325 [Percocet 1 tab PO TID PRN 3 Days #9 tablet 07/30/18 5/325 MG] Ciprofloxacin [Cipro] 500 mg PO Q24H 10 Days #10 tablet 08/04/18 metroNIDAZOLE [Flagyl] 500 mg PO TID 10 Days #30 tablet 08/04/18 Allergies Allergy/AdvReac Type Severity Reaction Status Date / Time adhesive tape Allergy Redness of Verified 07/15/18 11:57 Skin latex Allergy Swelling Verified 07/15/18 11:57 of Lip/Tongue/Throat Sulfa (Sulfonamide Allergy Rash Verified 07/15/18 11:57 Antibiotics) All systems ED: reviewed and negative except as stated. 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 Absent: respiratory distress, accessory muscle use - Cardiovascular Cardiovascular exam: Present: regular rate, normal rhythm, normal heart sounds - Abdominal Exam Abdominal exam: Present: soft, Non-Tender. Absent: distention, guarding, rebound, rigidity - Extremities Exam Extremities exam: Present: normal capillary refill - Neurological Exam Neurological exam: Present: alert - Psychiatric Psychiatric exam: Present: normal affect, normal mood - Skin Skin exam: Present: warm, dry, intact, normal color. Absent: rash Course Vital Signs Temperature 98.1 F 08/06/18 11:13 Pulse Rate 87 08/06/18 11:13 Respiratory Rate 22 08/06/18 11:13 Blood Pressure 151/101 08/06/18 11:13 O2 Sat by Pulse Oximetry 88 08/06/18 11:13 Temperature 98.1 F 08/06/18 11:13 Pulse Rate 78 08/06/18 12:51 Respiratory Rate 18 08/06/18 12:51 Blood Pressure 176/66 08/06/18 12:51 O2 Sat by Pulse Oximetry 100 08/06/18 12:51 Oxygen Delivery Oxygen Delivery Nasal Cannula Procedures - Phlebotomy Reason for Blood Draw by MD: RN/lab unable Obtained Bloods via: femoral vein stick Medical Decision Making - [facility] Narrative Medical decision making narrative: 67-year-old female presents emergency department with concern for altered mental status. Reports that she was hypoxic with our initial vitals being 88% on room air. There was poor waveform so do not think that this was accurate. However, patient was 100% on 2 L of oxygen via nasal cannula. Chest x-ray did not reveal any evidence of worsening airspace disease or any new changes. Head CT that was obtained did not reveal any evidence of acute intracranial abnormality. EKG did not reveal any evidence of any ischemic changes. Patient is known dialysis patient with no need for emergent dialysis at this time. Urinalysis reveals large leukocyte esterase and blood. We have obtained a urine culture. We will treat this patient as her altered mental status could be related to urinary tract infection. Rocephin was administered. Patient stable and not in any acute distress at time of admission. Hospitalist agreed to accept the patient. Chest X-Ray 08/06/18 11:26 IMPRESSION: Interval decreased airspace disease with persistent small right pleural effusion. D/ / Val Zimmer Cha, MD / Val Zimmer Cha, MD Interpreting Provider: Val Zimmer Cha, MD Head CT 08/06/18 11:27 IMPRESSION: No acute intracranial abnormality. D/ / 08/06/2018 13:04:29 Guevara Queen MD / Oxana Ryder Interpreting Provider: Guevara Queen MD Vital Signs Temperature 98.1 F 08/06/18 11:13 Pulse Rate 87 08/06/18 11:13 Respiratory Rate 22 08/06/18 11:13 Blood Pressure 151/101 08/06/18 11:13 O2 Sat by Pulse Oximetry 88 08/06/18 11:13 Temperature 98.1 F 08/06/18 11:13 Pulse Rate 78 08/06/18 12:51 Respiratory Rate 18 08/06/18 12:51 Blood Pressure 176/66 08/06/18 12:51 O2 Sat by Pulse Oximetry 100 08/06/18 12:51 Oxygen Delivery Oxygen Delivery Nasal Cannula - Lab Data Result diagrams: 08/06/18 12:13 08/06/18 12:13 Lab Results 08/06/18 08/06/18 08/06/18 Range/Units 11:50 12:13 12:13 WBC 9.4 D (4.3-11.1) K/mcL RBC 3.23 L (3.82-4.97) M/mcL Hgb 9.9 L (11.5-15.4) g/dL Hct 31.2 L (35.3-44.9) % MCV 96.6 (83.0-100.0) fL MCH 30.7 (28.0-33.3) pg MCHC 31.7 (31.6-35.5) g/dL RDW 12.8 (11.5-14.5) % Plt Count 301 (140-400) K/mcL MPV 10.1 (9.4-12.4) fL Immature Gran % 0.7 (0-4) % Seg Neutrophils % 77.7 % Lymphocytes % 11.4 % Monocytes % 8.8 % Eosinophils % 1.1 % Basophils % 0.3 % Neutrophils # 7.3 (1.6-8.9) K/mcL Lymphocytes # 1.1 (0.6-4.6) K/mcL Monocytes # 0.8 (0.0-1.3) K/mcL Eosinophils # 0.1 (0.0-0.6) K/mcL Basophils # 0.0 (0.0-0.2) K/mcL PT 14.1 H (9.4-12.1) Seconds INR 1.3 Sodium (136-145) mEq/L Potassium (3.5-5.1) mEq/L Chloride (98-107) mEq/L Carbon Dioxide (23-29) mEq/L BUN (8-23) mg/dL Creatinine (0.60-1.20) mg/dL Est GFR ( Amer) (> 60) Est GFR (Non-Af Amer) (> 60) BUN/Creatinine Ratio (6-26) Glucose (70-105) mg/dL Calculated Osmolality (280-300) Lactic Acid (0.5-2.2) mmol/L Calcium (8.6-10.3) mg/dL Total Bilirubin (0.3-1.0) mg/dL Direct Bilirubin (0.0-0.2) mg/dL Indirect Bilirubin (0.0-1.2) mg/dL AST (13-39) Units/L ALT (7-52) Units/L Alkaline Phosphatase (34-104) Units/L Troponin I (< 0.04) ng/mL Serum Total Protein (6.4-8.9) g/dL Albumin (3.5-5.7) g/dL Globulin (2.4-3.5) g/dL Albumin/Globulin Ratio (1.1-2.2) Urine Color Yellow (Yellow) Urine Clarity Cloudy A (Clear) Urine pH 8.0 (5.0-8.0) pH Units Ur Specific [place] < 1.005 L (1.010-1.025) Urine Protein >=300 H (Neg-Trace) mg/dL Urine Glucose (UA) 100 H (Normal) mg/dL Urine Ketones Negative (Negative) mg/dL Urine Blood Moderate H (Negative) Urine Nitrite Negative (Negative) Urine Bilirubin Negative (Negative) Urine Urobilinogen Normal (Normal) mg/dL Ur Leukocyte Esterase Large H (Negative) Urine Microscopic RBC 5-15 H (0-3) per hpf Urine Microscopic WBC TNTC H (0-3) per hpf Ur Squamous Epith Cells Many H (None-Few) per lpf Urine Bacteria None Seen (None-Few) per hpf Urine Yeast Few H (None Seen) per hpf Ur Culture Indicated? NO. A (NO) 08/06/18 08/06/18 Range/Units 12:13 12:13 WBC (4.3-11.1) K/mcL RBC (3.82-4.97) M/mcL Hgb (11.5-15.4) g/dL Hct (35.3-44.9) % MCV (83.0-100.0) fL MCH (28.0-33.3) pg MCHC (31.6-35.5) g/dL RDW (11.5-14.5) % Plt Count (140-400) K/mcL MPV (9.4-12.4) fL Immature Gran % (0-4) % Seg Neutrophils % % Lymphocytes % % Monocytes % % Eosinophils % % Basophils % % Neutrophils # (1.6-8.9) K/mcL Lymphocytes # (0.6-4.6) K/mcL Monocytes # (0.0-1.3) K/mcL Eosinophils # (0.0-0.6) K/mcL Basophils # (0.0-0.2) K/mcL PT (9.4-12.1) Seconds INR Sodium 132 L (136-145) mEq/L Potassium 3.7 (3.5-5.1) mEq/L Chloride 96 L (98-107) mEq/L Carbon Dioxide 27 (23-29) mEq/L BUN 16 (8-23) mg/dL Creatinine 3.38 H (0.60-1.20) mg/dL Est GFR ( Amer) 16 L (> 60) Est GFR (Non-Af Amer) 13 L (> 60) BUN/Creatinine Ratio 5 L (6-26) Glucose 161 H (70-105) mg/dL Calculated Osmolality 279 L (280-300) Lactic Acid 1.3 (0.5-2.2) mmol/L Calcium 9.0 (8.6-10.3) mg/dL Total Bilirubin 0.4 (0.3-1.0) mg/dL Direct Bilirubin 0.0 (0.0-0.2) mg/dL Indirect Bilirubin 0.4 (0.0-1.2) mg/dL AST 26 (13-39) Units/L ALT 12 (7-52) Units/L Alkaline Phosphatase 92 (34-104) Units/L Troponin I < 0.03 (< 0.04) ng/mL Serum Total Protein 6.8 (6.4-8.9) g/dL Albumin 3.0 L (3.5-5.7) g/dL Globulin 3.8 H (2.4-3.5) g/dL Albumin/Globulin Ratio 0.8 L (1.1-2.2) Urine Color (Yellow) Urine Clarity (Clear) Urine pH (5.0-8.0) pH Units Ur Specific [place] (1.010-1.025) Urine Protein (Neg-Trace) mg/dL Urine Glucose (UA) (Normal) mg/dL Urine Ketones (Negative) mg/dL Urine Blood (Negative) Urine Nitrite (Negative) Urine Bilirubin (Negative) Urine Urobilinogen (Normal) mg/dL Ur Leukocyte Esterase (Negative) Urine Microscopic RBC (0-3) per hpf Urine Microscopic WBC (0-3) per hpf Ur Squamous Epith Cells (None-Few) per lpf Urine Bacteria (None-Few) per hpf Urine Yeast (None Seen) per hpf Ur Culture Indicated? (NO) - EKG Data EKG #1 EKG attestation: Yes I reviewed and interpreted this EKG. EKG results narrative: 11:23 Heart rate 87 bpm, GA interval 141 ms, QRS duration 150 ms, QT 399 ms, normal axis. No evidence of any ischemic ST changes on this EKG. Normal sinus rhythm.
[2018-08-06 12:09] LABS: Bilirubin,Urine Negative (Negative); Blood,Urine Moderate (Negative); Clarity,Urine Cloudy (Clear); Color,Urine Yellow (Yellow); Glucose,Urine (UA) 100 mg/dL (Normal); Ketones,Urine Negative (Negative); Leukocyte Esterase,Urine Large (Negative); Nitrite,Urine Negative (Negative); Protein,Urine >=300 mg/dL (Neg-Trace); Specific Gravity,Urine < 1.005 (1.010-1.025); Urobilinogen,Urine Normal (Normal)
[2018-08-06 12:11] LABS: Bacteria,Urine None Seen per hpf (None-Few); Squamous Epithelial Cell,Urine Many per lpf (None-Few); WBC,Urine TNTC per hpf (0-3)
[2018-08-06 12:26] LABS: Basophils % 0.3 %; Eosinophils # 0.1 K/mcL (0.0-0.6); Eosinophils % 1.1 %; Hematocrit 31.2 % (35.3-44.9); Hemoglobin 9.9 g/dL (11.5-15.4); Immature Granulocytes % 0.7 % (0-4); Lymphocytes # 1.1 K/mcL (0.6-4.6); Lymphocytes % 11.4 %; Mean Corpuscular HGB Conc 31.7 g/dL (31.6-35.5); Mean Corpuscular Hemoglobin 30.7 pg (28.0-33.3); Mean Corpuscular Volume 96.6 fL (83.0-100.0); Mean Platelet Volume 10.1 fL (9.4-12.4); Monocytes # 0.8 K/mcL (0.0-1.3); Monocytes % 8.8 %; Neutrophils # 7.3 K/mcL (1.6-8.9); Platelet Count 301 K/mcL (140-400); Red Blood Count 3.23 M/mcL (3.82-4.97); Red Cell Distribution Width 12.8 % (11.5-14.5); Segmented Neutrophils % 77.7 %
[2018-08-06 12:31] LABS: INR 1.3; Prothrombin Time 14.1 Seconds (9.4-12.1)
[2018-08-06 12:33] LABS: Yeast,Urine Few per hpf (None Seen)
[2018-08-06] MEDS ORDERED: cefTRIAXone 1,000 MG in Water for inj. (sterile) 20 ML 10 ML IVP ONE (12:38)
[2018-08-06 12:48] LABS: Alanine Aminotransferase 12 Units/L (7-52); Albumin/Globulin Ratio 0.8 (1.1-2.2); Alkaline Phosphatase 92 Units/L (34-104); Aspartate Amino Transferase 26 Units/L (13-39); BUN/Creatinine Ratio 5 (6-26); Bilirubin,Indirect 0.4 mg/dL (0.0-1.2); Bilirubin,Total 0.4 mg/dL (0.3-1.0); Blood Urea Nitrogen 16 mg/dL (8-23); Carbon Dioxide 27 mEq/L (23-29); Chloride 96 mEq/L (98-107); Globulin 3.8 g/dL (2.4-3.5); Glucose 161 mg/dL (70-105); Osmolality,Calculated 279 (280-300); Potassium 3.7 mEq/L (3.5-5.1); Sodium 132 mEq/L (136-145); Total Protein 6.8 g/dL (6.4-8.9); Troponin I < 0.03 ng/mL (< 0.04); eGFR For Non-African Americans 13 (> 60)
[2018-08-06] MEDS ORDERED: Naloxone 0.4 MG/ML INJ IVP PRN (14:57)
[2018-08-06] MEDS ORDERED: D5% in 0.45% NACL 1,000 ML IVC SCH (15:00)
[2018-08-06] MEDS ORDERED: D5 IVPB ONE (15:03)
[2018-08-06] MEDS ORDERED: WATER IVPB ONE (15:03)
[2018-08-06] MEDS ORDERED: THIAMINE IVPB ONE (15:03)
--- NOTE | 2018-08-06 15:15 | Internal Med History&Physical ---
Date of Encounter: 08/06/18 Time of Encounter: 15:30 Internal Medicine - H&P: HPI Admitted From: Emergency Dept Plans for Post Hospital Care: Transfer [facility] History of present illness: Ms. Dan is a 67 year old female with past medical history of end-stage renal disease, patient brought to to emergency room from [facility] for further evaluation of her mental status. Patient is very confused. Patient also and call question by I not feel good at all. Patient alert oriented 0. Patient does not follow command. Moving upper extremities but she has minimal movement of lower extremities,She is not responding Command.Chest x-ray did not reveal any evidence of worsening airspace disease or any new changes. Head CT that was obtained did not reveal any evidence of acute intracranial abnormality. EKG did not reveal any evidence of any ischemic changes. Urinalysis was consistent with urinary tract infection. Unable to obtain history from patient Past Med Surg Social Fam HX - Past Medical History Medical history: arthritis, cancer, coronary artery disease, diabetes, dialysis , GERD, hyperlipidemia, hypertension, myocardial infarction, renal disease, other Additional medical history: neuropathy, insomnia Psychiatric history: anxiety, depression - Past Surgical History Surgical History: appendectomy, cholecystectomy, coronary bypass (CABG), hysterectomy, ureteral stent, other Additional surgical history: colonoscopy - egd - tubal ligation - kidney stent - Social History Smoking Status: Former smoker Smokeless Tobacco Status: No Alcohol use: none Drug use: none - Family History Mother Living Status: Hx Family Endocrine Disorder: (DM) Father Adopted: No Hx Family Cardiac Disorders: Yes ("heart troubles") Hx Family Cancer: Yes (Prostate cancer) Hx Family Endocrine Disorder: Yes (DM) Brother Hx Family Cardiac Disorders: Yes (CAD) Hx Family Cancer: Yes (lung cancer) Internal Medicine - H&P: Meds Folic Acid 1 mg PO DAILY 07/10/15 [History] Levothyroxine [Synthroid] 50 mcg PO QAM 07/10/15 [History] Pantoprazole Sodium [Protonix] 40 mg PO BID 07/10/15 [History] Solifenacin Succinate [Vesicare] 10 mg PO DAILY 07/10/15 [History] Aspirin 81 mg PO DAILY #30 tab.chew 02/18/16 [Rx] Metoprolol XL (24 HR) Succ [Toprol Xl] 12.5 mg PO DAILY #30 tab.er.24h 02/18/16 [Rx] Docusate [Colace] 100 mg PO BID 10/14/16 [History] Albuterol Sulfate [Proair Hfa] 2 puff IH Q4H PRN 03/17/17 [History] Atorvastatin [Lipitor] 40 mg PO HS 03/17/17 [History] Clopidogrel [Plavix] 75 mg PO DAILY 05/09/17 [History] Ondansetron ODT [Zofran ODT] 4 mg PO Q8H PRN 05/09/17 [History] Sucralfate [Carafate] 1 gm PO 0730,1630 05/09/17 [History] Folic Acid/Vit Bcomp,C [Renal-Elizabeth Tablet] 0.8 mg PO DAILY 03/01/18 [History] Furosemide [Lasix] 20 mg PO DAILY 03/01/18 [History] Amitriptyline [Elavil] 25 mg PO HS 03/26/18 [History] DULoxetine [Cymbalta] 30 mg PO Q48H 03/26/18 [History] Ergocalciferol (VITAMIN D2) [Drisdol] 50,000 unit PO MO 03/26/18 [History] Insulin ASPART [NovoLOG] 2 - 8 unit SQ TID 03/26/18 [History] Insulin DETEMIR [Levemir] 12 unit SQ QAM 03/26/18 [History] Tamsulosin [Flomax] 0.4 mg PO DAILY 03/26/18 [History] Zolpidem [Ambien] 5 mg PO HS 03/26/18 [History] Lactobacillus Combination No.8 [Adult Probiotic] 1 cap PO DAILY 05/04/18 [ History] Pramipexole Di-HCl [Pramipexole Dihydrochloride] 0.125 mg PO HS 05/04/18 [ History] Promethazine [Phenergan] 25 mg PO TID PRN 05/04/18 [History] Psyllium Husk [Daily Fiber] 0.52 gm PO DAILY 05/04/18 [History] SUMAtriptan Succinate [Imitrex] 6 mg SQ BID PRN 05/04/18 [History] OxyCODONE/APAP 5/325 [Percocet 5/325 MG] 1 tab PO TID PRN 3 Days #9 tablet 07/30 [Rx] Baclofen [Lioresal] 10 mg PO TID PRN 07/31/18 [History] Lisinopril [Zestril] 20 mg PO DAILY 07/31/18 [History] Mirtazapine [Remeron] 15 mg PO HS 07/31/18 [History] Ciprofloxacin [Cipro] 500 mg PO Q24H 10 Days #10 tablet 08/04/18 [Rx] metroNIDAZOLE [Flagyl] 500 mg PO TID 10 Days #30 tablet 08/04/18 [Rx] Insulin DETEMIR [Levemir Flextouch] 14 unit SQ QPM 08/06/18 [History] 3 Allergy/AdvReac Type Severity Reaction Status Date / Time adhesive tape Allergy Redness of Verified 07/15/18 11:57 Skin latex Allergy Swelling Verified 07/15/18 11:57 of Lip/Tongue/Throat Sulfa (Sulfonamide Allergy Rash Verified 07/15/18 11:57 Antibiotics) ROS unobtainable: due to mental status All Systems PM: A 10-system review of systems was performed and is negative for pertinent findings except as documented above in the HPI. - Constitutional Vitals: Temp Pulse Resp BP Pulse Ox 98.1 F 62 20 135/59 100 08/06/18 11:13 08/06/18 14:17 08/06/18 14:17 08/06/18 14:17 08/06/18 14:17 General appearance: Present: A&O X 0, cooperative, no acute distress Exam: as above - Head Head exam: Present: atraumatic, normocephalic - Eye Eye exam: Present: conjuntiva pink, sclera anicteric - Neck Neck exam general surgery: Present: supple, trachea midline. Absent: lymphadenopathy - Respiratory Respiratory exam: Present: CTAB. Absent: accessory muscle use, rales, rhonchi, wheezes - Cardiovascular Cardiovascular exam: Present: RRR, +S1, +S2. Absent: diastolic murmur, gallop, rubs, systolic murmur - GI/Abdominal GI/Abdominal exam: Present: normal bowel sounds, soft, no peritoneal signs. Absent: distended, tenderness - Extremities Exam Extremities exam: Present: warm. Absent: calf tenderness, cyanotic, pedal edema - Neurological Exam Neurological exam: Present: CN II-XII intact, oriented X3, no focal deficits. Absent: pronater drift, facial droop, speech deficit - Skin Skin exam: Present: dry, intact Internal Med - H&P Results - Labs CBC & Chem 7: 08/06/18 12:13 08/06/18 12:13 - Assessment and plan (1) Wernicke encephalopathy Current Visit: Yes Status: Acute (2) Hypophosphatemia Current Visit: Yes Status: Acute (3) Altered mental status Current Visit: Yes Status: Acute Qualifiers: Altered mental status type: unspecified Qualified Code(s): R41.82 - Altered mental status, unspecified Code(s): R41.82 - Altered mental status, unspecified SNOMED Code(s): 758424090 (4) UTI (urinary tract infection) Current Visit: Yes Status: Acute Qualifiers: Urinary tract infection type: acute cystitis Hematuria presence: with hematuria Qualified Code(s): N30.01 - Acute cystitis with hematuria (5) Lung cancer Current Visit: No Status: Chronic Qualifiers: Laterality: right Lung location: unspecified part of lung Qualified Code( s): C34.91 - Malignant neoplasm of unspecified part of right bronchus or lung (6) UTI (urinary tract infection) Current Visit: No Status: Resolved Qualifiers: Urinary tract infection type: acute cystitis Hematuria presence: with hematuria Qualified Code(s): N30.01 - Acute cystitis with hematuria (7) Malnutrition Current Visit: Yes Status: Acute Qualifiers: Malnutrition type: protein-calorie malnutrition Protein-calorie malnutrition severity: moderate Qualified Code(s): E44.0 - Moderate protein- calorie malnutrition - Time Spent With Patient With the patient poor nutritional status, I ordered phosphorous stat, patient had severe hypophosphatemia, possible severe vitamin B1 deficiency, phosphorus replacement, add vitamin B1, will add vitamin B1 500 3 times a day for 1 days then 500 daily for 5 days, nephrology consult for dialysis, add ceftriaxone for UTI. Check swallow evaluation discussed with staff, gentle hydration patient looks so dry, patient had episode of hypoglycemia, she was given glucagon by ambulance, will start patient on D5 close monitoring of her blood sugar every 4 hour 3 times. Check vitamin B 12 and TSH. Case discussed with nephrology as well as with clinical pharmacist, differential recommended to stop that phosphorus binder, will consult dietitian for supplement and high protein diet Total time spent is 50 minutes greater than 50% in coordination of care (as documented) at patient's floor/unit and/or counseling patient:
[2018-08-06 17:18] LABS: Magnesium 1.7 mg/dL (1.6-2.6)
[2018-08-06] MEDS ORDERED: D5% in 0.45% NACL 500 ML IVC SCH (17:48)
[2018-08-06] MEDS ORDERED: D5% in 0.45% NACL 1,000 ML IVC ONE (17:53)
[2018-08-06] MEDS ORDERED: THIAMINE IVPB SCH (21:00)
[2018-08-06] MEDS ORDERED: D5 IVPB SCH (21:00)
[2018-08-06] MEDS ORDERED: WATER IVPB SCH (21:00)
[2018-08-07] MEDS ORDERED: Isovue-370 500 ML INFUS..BTL IV ONE ×3 (01:08→16:31)
--- NOTE | 2018-08-07 01:11 | Event Note ---
Date of Encounter: 08/07/18 Time of Encounter: 01:11 Recieved page at 01:00 that patient was demonstrating new onset anisocoria and sluggish pupillary reflexes. I examined the patient and the left pupil was demonstrably larger than the right with both pupils demonstrating retarded constriction to light. The patient was also completely nonverbal and not following commands, however I did witness her move all 4 extremities equally. I ordered stat head CT which was read as no acute abnormality. I re-examined the patient at 03:45 wherein she is now partially communicative and following some commands, and crying out in pain that her back hurts. She is still moving all 4 extremities and her neck without difficulty. She also still exhibits anisocoria. Plan to order MRI and Neurology consult for AM. During this time the patient is hemodynamically stable.
[2018-08-07 05:35] LABS: Basophils % 0.4 %; Eosinophils # 0.1 K/mcL (0.0-0.6); Eosinophils % 1.8 %; Hematocrit 31.5 % (35.3-44.9); Hemoglobin 10.2 g/dL (11.5-15.4); Immature Granulocytes % 0.6 % (0-4); Lymphocytes # 1.1 K/mcL (0.6-4.6); Lymphocytes % 16.7 %; Mean Corpuscular HGB Conc 32.4 g/dL (31.6-35.5); Mean Corpuscular Hemoglobin 30.5 pg (28.0-33.3); Mean Corpuscular Volume 94.3 fL (83.0-100.0); Mean Platelet Volume 10.2 fL (9.4-12.4); Monocytes # 0.8 K/mcL (0.0-1.3); Monocytes % 11.7 %; Neutrophils # 4.6 K/mcL (1.6-8.9); Platelet Count 297 K/mcL (140-400); Red Blood Count 3.34 M/mcL (3.82-4.97); Red Cell Distribution Width 12.9 % (11.5-14.5); Segmented Neutrophils % 68.8 %
[2018-08-07 05:53] LABS: Calcium 8.6 mg/dL (8.6-10.3); Potassium 3.5 mEq/L (3.5-5.1)
[2018-08-07] MEDS: cefTRIAXone 1,000 MG in Water for inj. (sterile) 20 ML 10 ML IVP SCH (08:25)
[2018-08-07] MEDS ORDERED: 0.9 % Sodium Chloride 250 ML IVC PRN (08:27)
[2018-08-07] MEDS ORDERED: 0.9 % Sodium Chloride 1,000 ML PRIME SCH (08:30)
[2018-08-07] MEDS ORDERED: Thiamine (B-1) 100 MG TABLET PO SCH (09:00)
[2018-08-07] MEDS ORDERED: Ondansetron 4 MG/2 ML VIAL IVP PRN (09:55)
[2018-08-07] MEDS ORDERED: *HR* FentaNYL (PF) 100 MCG/2 ML VIAL IVP ONE (10:16)
--- NOTE | 2018-08-07 10:22 | Nephrology Consult Note ---
<DarrionteriGerda Cony - Last Filed: 08/07/18 20:03> Date of Encounter: 08/07/18 Time of Encounter: 10:07 Assessment and Plan (1) ESRD (end stage renal disease) on dialysis Current Visit: Yes Status: Acute Current regimen is MWF at [facility]. HD in progress now. Renal diet, if able to eat. Avoid nephrotoxins and renal dose all medications. (2) Altered mental status Current Visit: Yes Status: Acute Per primary. Qualifiers: Altered mental status type: unspecified Qualified Code(s): R41.82 - Altered mental status, unspecified (3) Hypophosphatemia Current Visit: Yes Status: Acute Will ordered a recheck after HD. Will replace accordingly. (4) Abdominal pain Current Visit: Yes Status: Acute Right sided in nature and radiates around her side. State abdominal US ordered by primary. IV pain medication ordered by primary. Qualifiers: Qualified Code(s): R10.9 - Unspecified abdominal pain History of Present Illness - Reason for Consult Consult date: 08/07/18 end stage renal disease - Chief Complaint abdominal pain - History of Present Illness Ms. Dan is a 67 year old female with many recent hospitalizations presented to ER yesterday with worsening mental status and abdominal pain. Last d/c from this facility was 08/04/18 for fever. ESRD regimen is MWF at [facility]. PMH: arthritis, cancer, coronary artery disease, diabetes, dialysis, GERD, hyperlipidemia, hypertension, myocardial infarction. She was recently treated at [facility] for colitis. She was seen by GI last stay and colonoscopy was with poor preparation and will repeat in 2-3 months. Ms. Dan was examined on HD where she was altered and in sever pain. Dr. Emerson aware and ordered IV pain mediation and stat abdominal ultrasound. She is a former smoker, no etoh or drug use. She did have a stat head CT that was negative last night for acute processes. Past Med Surg Social Fam HX - Past Medical History Medical history: arthritis, cancer, coronary artery disease, diabetes, dialysis , GERD, hyperlipidemia, hypertension, myocardial infarction, renal disease, other Additional medical history: neuropathy, insomnia Psychiatric history: anxiety, depression - Past Surgical History Surgical History: appendectomy, cholecystectomy, coronary bypass (CABG), hysterectomy, ureteral stent, other Additional surgical history: colonoscopy - egd - tubal ligation - kidney stent - Social History Smoking Status: Former smoker Smokeless Tobacco Status: No Alcohol use: none Drug use: none - Family History Mother Living Status: Hx Family Endocrine Disorder: (DM) Father Adopted: No Hx Family Cardiac Disorders: Yes ("heart troubles") Hx Family Cancer: Yes (Prostate cancer) Hx Family Endocrine Disorder: Yes (DM) Brother Hx Family Cardiac Disorders: Yes (CAD) Hx Family Cancer: Yes (lung cancer) Medications and Allergies Folic Acid 1 mg PO DAILY 07/10/15 [History] Levothyroxine [Synthroid] 50 mcg PO QAM 07/10/15 [History] Pantoprazole Sodium [Protonix] 40 mg PO BID 07/10/15 [History] Solifenacin Succinate [Vesicare] 10 mg PO DAILY 07/10/15 [History] Aspirin 81 mg PO DAILY #30 tab.chew 02/18/16 [Rx] Metoprolol XL (24 HR) Succ [Toprol Xl] 12.5 mg PO DAILY #30 tab.er.24h 02/18/16 [Rx] Docusate [Colace] 100 mg PO BID 10/14/16 [History] Albuterol Sulfate [Proair Hfa] 2 puff IH Q4H PRN 03/17/17 [History] Atorvastatin [Lipitor] 40 mg PO HS 03/17/17 [History] Clopidogrel [Plavix] 75 mg PO DAILY 05/09/17 [History] Ondansetron ODT [Zofran ODT] 4 mg PO Q8H PRN 05/09/17 [History] Sucralfate [Carafate] 1 gm PO 0730,1630 05/09/17 [History] Folic Acid/Vit Bcomp,C [Renal-Elizabeth Tablet] 0.8 mg PO DAILY 03/01/18 [History] Furosemide [Lasix] 20 mg PO DAILY 03/01/18 [History] Amitriptyline [Elavil] 25 mg PO HS 03/26/18 [History] DULoxetine [Cymbalta] 30 mg PO Q48H 03/26/18 [History] Ergocalciferol (VITAMIN D2) [Drisdol] 50,000 unit PO MO 03/26/18 [History] Insulin ASPART [NovoLOG] 2 - 8 unit SQ TID 03/26/18 [History] Insulin DETEMIR [Levemir] 12 unit SQ QAM 03/26/18 [History] Tamsulosin [Flomax] 0.4 mg PO DAILY 03/26/18 [History] Zolpidem [Ambien] 5 mg PO HS 03/26/18 [History] Lactobacillus Combination No.8 [Adult Probiotic] 1 cap PO DAILY 05/04/18 [ History] Pramipexole Di-HCl [Pramipexole Dihydrochloride] 0.125 mg PO HS 05/04/18 [ History] Promethazine [Phenergan] 25 mg PO TID PRN 05/04/18 [History] Psyllium Husk [Daily Fiber] 0.52 gm PO DAILY 05/04/18 [History] SUMAtriptan Succinate [Imitrex] 6 mg SQ BID PRN 05/04/18 [History] OxyCODONE/APAP 5/325 [Percocet 5/325 MG] 1 tab PO TID PRN 3 Days #9 tablet 07/30 [Rx] Baclofen [Lioresal] 10 mg PO TID PRN 07/31/18 [History] Lisinopril [Zestril] 20 mg PO DAILY 07/31/18 [History] Mirtazapine [Remeron] 15 mg PO HS 07/31/18 [History] Ciprofloxacin [Cipro] 500 mg PO Q24H 10 Days #10 tablet 08/04/18 [Rx] metroNIDAZOLE [Flagyl] 500 mg PO TID 10 Days #30 tablet 08/04/18 [Rx] Insulin DETEMIR [Levemir Flextouch] 14 unit SQ QPM 08/06/18 [History] 3 Allergy/AdvReac Type Severity Reaction Status Date / Time adhesive tape Allergy Redness of Verified 07/15/18 11:57 Skin latex Allergy Swelling Verified 07/15/18 11:57 of Lip/Tongue/Throat Sulfa (Sulfonamide Allergy Rash Verified 07/15/18 11:57 Antibiotics) Review of Systems ROS unobtainable: due to mental status Exam - Vital Signs Vital signs: Initial Vital Signs Temp Pulse Resp BP Pulse Ox 98.1 F 87 22 151/101 88 08/06/18 11:13 08/06/18 11:13 08/06/18 11:13 08/06/18 11:13 08/06/18 11:13 Vital Signs - Last 8 Hours Temp Pulse Resp BP Pulse Ox 08/07/18 06:54 97.7 F 81 18 171/65 100 08/07/18 04:04 99.5 F 96 17 164/77 97 08/07/18 02:23 82 172/67 Intake and Output 08/06/18 08/07/18 08/07/18 23:59 07:59 15:59 Intake Total 0 / 0 Balance 0 / 0 Intake: Oral 0 / 0 Other: # Urine Diapers 2 Weight 73.1 kg Blood Glucose* 141 166 Patient Weight 08/07/18 23:59 Weight 73.1 kg - General Appearance General appearance: well-developed, well-nourished EENT: ATNC, hearing intact, vision intact Neck: supple Respiratory: clear Cardiology: no edema, normal S1, normal S2 - Dialysis Access Dialysis Vascular Access: Venous Catheter (Tunneled Line, DRSG C/D/I) Gastrointestinal: tenderness, rebound tenderness, guarding Integumentary: no rash, warm and dry Neurologic: confused, disoriented Psychiatric: mood/affect appropriate, agitated Results - Lab Results 08/07/18 18:43 08/07/18 16:33 Most recent lab results Calcium 8.6 mg/dL (8.6-10.3) 08/07/18 04:56 Phosphorus 1.0 mg/dL (2.7-4.5) L* 08/06/18 12:13 Magnesium 1.7 mg/dL (1.6-2.6) 08/06/18 12:13 Consult Discharge Plan - Plan Referrals: Bartolo Washburn MD [Primary Care Provider] - <Bonilla Sierra - Last Filed: 08/07/18 20:13> Date of Encounter: 08/07/18 Assessment and Plan (1) ESRD (end stage renal disease) on dialysis Current Visit: Yes Status: Chronic ESRD on HD MWF with next HD today. The Pt was seen and examined during dialysis. She was A/Ox2 but was complaining of severe deep abd pain. She was crying and the floor nurse arrived with an IV narcotic, which I agree. Her Pulse Ox was 94% with NC. This is my supervisory note for the pt, as I saw/examined and performed E/M and complex decision making in this new consult for ESRD, Abd pain, Anemia of CKD, Hypophosphatemia, Hypoalbuminemia, hx of hydronephrosis s/p stent, etc. I discussed with the hospitalist that it's okay to proceed with IV contrast in work up for the pt's severe abd pain. Dialysis note: the pt's RUE AVG was noted during dialysis with adequate Qb and Qd and stable VS. (2) Hypophosphatemia Current Visit: Yes Status: Acute (3) Altered mental status Current Visit: Yes Status: Acute Qualifiers: Altered mental status type: unspecified Qualified Code(s): R41.82 - Altered mental status, unspecified (4) Abdominal pain Current Visit: Yes Status: Acute Qualifiers: Qualified Code(s): R10.9 - Unspecified abdominal pain Exam - Vital Signs Vital signs: Initial Vital Signs Temp Pulse Resp BP Pulse Ox 98.1 F 87 22 151/101 88 08/06/18 11:13 08/06/18 11:13 08/06/18 11:13 08/06/18 11:13 08/06/18 11:13 Vital Signs - Last 8 Hours Temp Resp BP 08/07/18 12:50 97.7 F 20 155/64 08/07/18 12:30 126/97 08/07/18 12:15 124/71 Intake and Output 08/07/18 08/07/18 08/07/18 07:59 15:59 23:59 Intake Total 0 / 0 610 / 610 Output Total 1600 / 1600 Balance 0 / 0 -990 / -990 Intake: IV Fluids Rocephin 1,000 MG In Water for inj. (sterile) 10 ML @ 600 mls/ hr IVP DAILY YUSUF Rx#:[id number] Oral 0 / 0 Intake, Rinseback and Flushes 600 / 600 Output: Total Dialysis (HD) Output 1600 / 1600 Other: # Urine Diapers 2 Weight 73.1 kg Blood Glucose* 166 Hemodialysis Net Fluid Removed 1000 (mL) Patient Weight 08/07/18 23:59 Weight 73.1 kg Results - Lab Results 08/07/18 18:43 08/07/18 16:33 Most recent lab results Calcium 9.0 mg/dL (8.6-10.3) 08/07/18 16:33 Phosphorus 4.5 mg/dL (2.7-4.5) 08/07/18 04:56 Magnesium 1.7 mg/dL (1.6-2.6) 08/06/18 12:13
--- NOTE | 2018-08-07 10:36 | Neurology - Consult Note ---
<Pat Moreno N - Last Filed: 08/07/18 13:51> Date of Encounter: 08/07/18 Time of Encounter: 10:34 Assessment and Plan (1) Anisocoria Current Visit: Yes Status: Acute 67 year old female with multiple comorbidities and recent hospitalization for ischemic colitis presents from [facility] two days after discharge. She presents with acute onset mental status change and evidence of UTI. On admission she is severely altered, A&OX0, and does not follow commands. She was admitted and began treatment for cystitis. On night of admission, new onset anisocoria is noted. Stat head CT was negative. -Patient continues to remain altered today, minimally verbal and does not follow commands -On exam, anisocoria is noted with right pupil noticeably larger than left. Unable to perform EOM testing but patient has spontaneous eye movements and no evidence for EOM palsy. -Vision appears to be intact as patient tracks movement across the room -Previous notes do not note anisocoria, it is unknown if this is a new finding -CT head negative -Will obtain MRI to evaluate for possible pathological cause for patient's pupillary discrepancy (2) Altered mental status Current Visit: Yes Status: Acute -Likely secondary to acute toxic metabolic encephalopathy secondary to current illness -Patient is currently receiving IV antibiotics for UTI -obtaining MRI but doubt neurological etiology for mental status change -Of note, patient was recently admitted for colitis with colonoscopic evidence for severe ischemia. A CT scan on 07/30/2018 also revealed evidence for colitis with possible secondarily induced cystitis. It is possible patient has recurrence of her GI symptoms as she is complaining of abdominal pain during examination as well. Her current UTI may also be secondary to her colitis Qualifiers: Altered mental status type: unspecified Qualified Code(s): R41.82 - Altered mental status, unspecified (3) UTI (urinary tract infection) Current Visit: No Status: Acute -Continue IV antibiotics -patient was recently admitted for colitis with colonoscopic evidence for severe ischemia. A CT scan on 07/30/2018 also revealed evidence for colitis with possible secondarily induced cystitis. It is possible patient has recurrence of her GI symptoms as she is complaining of abdominal pain during examination. Her current UTI may also be secondary to colitis. Recommend further GI workup Qualifiers: Urinary tract infection type: acute cystitis Hematuria presence: with hematuria Qualified Code(s): N30.01 - Acute cystitis with hematuria History of Present Illness Chief complaint: Anisocoria, AMS HPI: Ms. Dan is a 67 year old female with ESRD who was admitted to [facility] from extended care facility on 08/06/2018 for change in her mental status. Of note patient was recently discharged on 08/04/2018 for ischemic colitis. At that time she was treated with IV antibiotics until her condition improved and transferred to an ECF. Review of old records reveal that patient was alert and oriented x 3 and there is no documented evidence for anisocoria during her last admission. Per ED documentation patient experienced waxing and waning of her mental status for approximately one day prior to her presentation. On admission patient was not alert or oriented and she did not follow commands. Head CT on admission did not reveal any acute findings. UA revealed blood and large leukocyte esterase. CT scan from 07/30/2018 revealed colitis w/ probable secondarily induced cystitis. She was also found to have severe hypophosphotemia of 1.0 on this admission, phosphate on day day of discharge 2 days prior to admission was normal at 3.6. Patient was admitted and started on IV antibiotics. The night after her admission the patient was found to have anisocoria and sluggish pupillary reflexes. This was reportedly new in onset. stat head CT was negative. MRI and neurology consults were ordered. Patient was seen and examined at bedside this morning. She continues to remain nonverbal, answering only a few questions with yes or no. She is moderately anxious and admits to having pain while gesturing to her abdomen. Unable to obtain a history from the patient due to mental status, and she follows very few commands. Anisocoria noted with right pupil noticeably larger than left. Both eyes are minimally responsive to light. She does not follow commands for EOM testing, but spontaneous eye movement is noted. Past Med Surg Social Fam HX - Past Medical History Medical history: arthritis, cancer, coronary artery disease, diabetes, dialysis , GERD, hyperlipidemia, hypertension, myocardial infarction, renal disease, other Additional medical history: neuropathy, insomnia Psychiatric history: anxiety, depression - Past Surgical History Surgical History: appendectomy, cholecystectomy, coronary bypass (CABG), hysterectomy, ureteral stent, other Additional surgical history: colonoscopy - egd - tubal ligation - kidney stent - Social History Smoking Status: Former smoker Smokeless Tobacco Status: No Alcohol use: none Drug use: none - Family History Mother Living Status: Hx Family Endocrine Disorder: (DM) Father Adopted: No Hx Family Cardiac Disorders: Yes ("heart troubles") Hx Family Cancer: Yes (Prostate cancer) Hx Family Endocrine Disorder: Yes (DM) Brother Hx Family Cardiac Disorders: Yes (CAD) Hx Family Cancer: Yes (lung cancer) Medications and Allergies Folic Acid 1 mg PO DAILY 07/10/15 [History] Levothyroxine [Synthroid] 50 mcg PO QAM 07/10/15 [History] Pantoprazole Sodium [Protonix] 40 mg PO BID 07/10/15 [History] Solifenacin Succinate [Vesicare] 10 mg PO DAILY 07/10/15 [History] Aspirin 81 mg PO DAILY #30 tab.chew 02/18/16 [Rx] Metoprolol XL (24 HR) Succ [Toprol Xl] 12.5 mg PO DAILY #30 tab.er.24h 02/18/16 [Rx] Docusate [Colace] 100 mg PO BID 10/14/16 [History] Albuterol Sulfate [Proair Hfa] 2 puff IH Q4H PRN 03/17/17 [History] Atorvastatin [Lipitor] 40 mg PO HS 03/17/17 [History] Clopidogrel [Plavix] 75 mg PO DAILY 05/09/17 [History] Ondansetron ODT [Zofran ODT] 4 mg PO Q8H PRN 05/09/17 [History] Sucralfate [Carafate] 1 gm PO 0730,1630 05/09/17 [History] Folic Acid/Vit Bcomp,C [Renal-Elizabeth Tablet] 0.8 mg PO DAILY 03/01/18 [History] Furosemide [Lasix] 20 mg PO DAILY 03/01/18 [History] Amitriptyline [Elavil] 25 mg PO HS 03/26/18 [History] DULoxetine [Cymbalta] 30 mg PO Q48H 03/26/18 [History] Ergocalciferol (VITAMIN D2) [Drisdol] 50,000 unit PO MO 03/26/18 [History] Insulin ASPART [NovoLOG] 2 - 8 unit SQ TID 03/26/18 [History] Insulin DETEMIR [Levemir] 12 unit SQ QAM 03/26/18 [History] Tamsulosin [Flomax] 0.4 mg PO DAILY 03/26/18 [History] Zolpidem [Ambien] 5 mg PO HS 03/26/18 [History] Lactobacillus Combination No.8 [Adult Probiotic] 1 cap PO DAILY 05/04/18 [ History] Pramipexole Di-HCl [Pramipexole Dihydrochloride] 0.125 mg PO HS 05/04/18 [ History] Promethazine [Phenergan] 25 mg PO TID PRN 05/04/18 [History] Psyllium Husk [Daily Fiber] 0.52 gm PO DAILY 05/04/18 [History] SUMAtriptan Succinate [Imitrex] 6 mg SQ BID PRN 05/04/18 [History] OxyCODONE/APAP 5/325 [Percocet 5/325 MG] 1 tab PO TID PRN 3 Days #9 tablet 07/30 [Rx] Baclofen [Lioresal] 10 mg PO TID PRN 07/31/18 [History] Lisinopril [Zestril] 20 mg PO DAILY 07/31/18 [History] Mirtazapine [Remeron] 15 mg PO HS 07/31/18 [History] Ciprofloxacin [Cipro] 500 mg PO Q24H 10 Days #10 tablet 08/04/18 [Rx] metroNIDAZOLE [Flagyl] 500 mg PO TID 10 Days #30 tablet 08/04/18 [Rx] Insulin DETEMIR [Levemir Flextouch] 14 unit SQ QPM 08/06/18 [History] 3 Allergy/AdvReac Type Severity Reaction Status Date / Time adhesive tape Allergy Redness of Verified 07/15/18 11:57 Skin latex Allergy Swelling Verified 07/15/18 11:57 of Lip/Tongue/Throat Sulfa (Sulfonamide Allergy Rash Verified 07/15/18 11:57 Antibiotics) ROS unobtainable: due to mental status All Systems: The remainder of the systems were reviewed and are negative Physical Examination - Vital Signs Vital Signs: Initial Vital Signs Temp Pulse Resp BP Pulse Ox 98.1 F 87 22 151/101 88 08/06/18 11:13 08/06/18 11:13 08/06/18 11:13 08/06/18 11:13 08/06/18 11:13 - Exam Exam: Constitutional: Moderate distress, patient admits to pain while gesturing at her abdomen. she is mostly nonverbal and follows very few commands. Heart: mild systolic murmur auscultated. regular rate and rhythm Lungs: clear to auscultation Abdomen: soft, but patient admits to pain in the area Neurological: CN II-XII: limited exam due to mental status. Pupils are unequal with the right pupil noticeably larger than the left. poor response to light. No EOM nerve palsy noted, patient does not follow commands for EOM testing but spontaneous eye movements noted. Vision appears to be intact as patient tracts examiner's movements. No facial palsy or droop noted. Extremities: Patient moves upper extremities, does not follow commands for further testing. LLE spontaneous movement noted. Patient does not respond to command to move RLE, however previous event note observed spontaneous movement of all four extremities. Biceps reflex 1+ bilaterally. Patellar reflex 1+ bilaterally. Babinski negative. Results - Laboratory Findings CBC and BMP: 08/07/18 04:56 08/07/18 04:56 Abnormal lab findings: Abnormal lab results RBC 3.34 M/mcL (3.82-4.97) L 08/07/18 04:56 Hgb 10.2 g/dL (11.5-15.4) L 08/07/18 04:56 Hct 31.5 % (35.3-44.9) L 08/07/18 04:56 PT 14.1 Seconds (9.4-12.1) H 08/06/18 12:13 Sodium 134 mEq/L (136-145) L 08/07/18 04:56 Creatinine 3.45 mg/dL (0.60-1.20) H 08/07/18 04:56 Est GFR ( Amer) 16 (> 60) L 08/07/18 04:56 Est GFR (Non-Af Amer) 13 (> 60) L 08/07/18 04:56 BUN/Creatinine Ratio 5 (6-26) L 08/07/18 04:56 Glucose 154 mg/dL (70-105) H 08/07/18 04:56 POC Glucose 141 mg/dL (70-99) H 08/06/18 19:16 Phosphorus 1.0 mg/dL (2.7-4.5) L* 08/06/18 12:13 Albumin 3.0 g/dL (3.5-5.7) L 08/06/18 12:13 Globulin 3.8 g/dL (2.4-3.5) H 08/06/18 12:13 Albumin/Globulin Ratio 0.8 (1.1-2.2) L 08/06/18 12:13 Urine Clarity Cloudy (Clear) A 08/06/18 11:50 Ur Specific [place] < 1.005 (1.010-1.025) L 08/06/18 11:50 Urine Protein >=300 mg/dL (Neg-Trace) H 08/06/18 11:50 Urine Glucose (UA) 100 mg/dL (Normal) H 08/06/18 11:50 Urine Blood Moderate (Negative) H 08/06/18 11:50 Ur Leukocyte Esterase Large (Negative) H 08/06/18 11:50 Urine Microscopic RBC 5-15 per hpf (0-3) H 08/06/18 11:50 Urine Microscopic WBC TNTC per hpf (0-3) H 08/06/18 11:50 Ur Squamous Epith Cells Many per lpf (None-Few) H 08/06/18 11:50 Urine Yeast Few per hpf (None Seen) H 08/06/18 11:50 Ur Culture Indicated? NO. (NO) A 08/06/18 11:50 Consult Discharge Plan - Plan Referrals: Bartolo Washburn MD [Primary Care Provider] - <Gomez Cope - Last Filed: 08/07/18 15:59> Date of Encounter: 08/07/18 Assessment and Plan (1) Anisocoria Current Visit: Yes Status: Acute I agree with the resident's assessment as above. I see no evidence to support a third nerve palsy, or Traci's syndrome. I believe the pupillary asymmetry is simply benign anisocoria. MRI scan of the brain was completed however is of poor quality secondary to excessive movement. I will reevaluate her in the morning. History of Present Illness HPI: The chart was reviewed, the patient was seen and examined along with the resident. I agree with his assessment of the history as stated above. This evening however when I saw her she was much more alert and verbal, but still complaining about abdominal discomfort. All Systems: The remainder of the systems were reviewed and are negative Review of Systems: The balance of the systems review is negative. Physical Examination - Vital Signs Vital Signs: Initial Vital Signs Temp Pulse Resp BP Pulse Ox 98.1 F 87 22 151/101 88 08/06/18 11:13 08/06/18 11:13 08/06/18 11:13 08/06/18 11:13 08/06/18 11:13 - Exam Exam: Mental status assessment finds that she is awake alert she is oriented to person and place, she is distressed about the abdominal discomfort however. She is able to follow simple commands. She is not able to provide a complete history of her own medical account at this time. She is wailing because of her abdominal discomfort. - Neurologic Detailed motor examination: other (It is difficult to get an accurate assessment of her strength in all 4 extremities however she does have equal tone of all 4 extremities. She is able to withdraw from noxious stim. No involuntary movements are identified.) Detailed sensory examination: intact Cranial nerve examination: PERRL (The right pupil is about 4-5 mm and the left is about 2 mm. Extraocular motility is intact however, there is no ptosis associated. This appears to be simple anasicoria. I am not convinced of a third nerve palsy or a sympathetic lesion here.), EOMI, sensory to face intact, mastication intact, no facial asymmetry is present, no dysarthria Results - Laboratory Findings CBC and BMP: 08/07/18 04:56 08/07/18 04:56 Abnormal lab findings: Abnormal lab results RBC 3.34 M/mcL (3.82-4.97) L 08/07/18 04:56 Hgb 10.2 g/dL (11.5-15.4) L 08/07/18 04:56 Hct 31.5 % (35.3-44.9) L 08/07/18 04:56 PT 14.1 Seconds (9.4-12.1) H 08/06/18 12:13 Sodium 134 mEq/L (136-145) L 08/07/18 04:56 Creatinine 3.45 mg/dL (0.60-1.20) H 08/07/18 04:56 Est GFR ( Amer) 16 (> 60) L 08/07/18 04:56 Est GFR (Non-Af Amer) 13 (> 60) L 08/07/18 04:56 BUN/Creatinine Ratio 5 (6-26) L 08/07/18 04:56 Glucose 154 mg/dL (70-105) H 08/07/18 04:56 POC Glucose 141 mg/dL (70-99) H 08/06/18 19:16 Alkaline Phosphatase 106 Units/L (34-104) H 08/07/18 13:44 Albumin 3.3 g/dL (3.5-5.7) L 08/07/18 13:44 Globulin 4.1 g/dL (2.4-3.5) H 08/07/18 13:44 Albumin/Globulin Ratio 0.8 (1.1-2.2) L 08/07/18 13:44 Urine Clarity Cloudy (Clear) A 08/06/18 11:50 Ur Specific [place] < 1.005 (1.010-1.025) L 08/06/18 11:50 Urine Protein >=300 mg/dL (Neg-Trace) H 08/06/18 11:50 Urine Glucose (UA) 100 mg/dL (Normal) H 08/06/18 11:50 Urine Blood Moderate (Negative) H 08/06/18 11:50 Ur Leukocyte Esterase Large (Negative) H 08/06/18 11:50 Urine Microscopic RBC 5-15 per hpf (0-3) H 08/06/18 11:50 Urine Microscopic WBC TNTC per hpf (0-3) H 08/06/18 11:50 Ur Squamous Epith Cells Many per lpf (None-Few) H 08/06/18 11:50 Urine Yeast Few per hpf (None Seen) H 08/06/18 11:50 Ur Culture Indicated? NO. (NO) A 08/06/18 11:50
[2018-08-07 10:48] LABS: Phosphorous 4.5 mg/dL (2.7-4.5)
[2018-08-07] MEDS: *HR* FentaNYL (PF) 100 MCG/2 ML VIAL IVP PRN ×2 (13:27→20:29)
[2018-08-07 14:14] LABS: Albumin 3.3 g/dL (3.5-5.7); Albumin/Globulin Ratio 0.8 (1.1-2.2); Bilirubin,Direct 0.1 mg/dL (0.0-0.2); Bilirubin,Indirect 0.5 mg/dL (0.0-1.2); Bilirubin,Total 0.6 mg/dL (0.3-1.0); Globulin 4.1 g/dL (2.4-3.5); Total Protein 7.4 g/dL (6.4-8.9)
--- NOTE | 2018-08-07 15:15 | Internal Med Progress Note ---
Hospitalist Progress Note - Encounter Date of Encounter: 08/07/18 Time of Encounter: 15:15 - Subjective Interval History: Pt states to nurse that she is having RUQ pain. She had been iven Zofran for nausea. Pt yelling out. Denies fever or chills and last temp was 97.7. She denies having diarrhea. - Exam Vitals: Temp Pulse Resp BP Pulse Ox 97.7 F 81 20 155/64 100 08/07/18 12:50 08/07/18 06:54 08/07/18 12:50 08/07/18 12:50 08/07/18 06:54 Exam: General appearance: Present: A&O X 0, cooperative, no acute distress Exam: as above - Head Head exam: Present: atraumatic, normocephalic - Eye Eye exam: Present: conjuntiva pink, sclera anicteric - Neck Neck exam general surgery: Present: supple, trachea midline. Absent: lymphadenopathy - Respiratory Respiratory exam: Present: CTAB. Absent: accessory muscle use, rales, rhonchi, wheezes - Cardiovascular Cardiovascular exam: Present: RRR, +S1, +S2. Absent: diastolic murmur, gallop, rubs, systolic murmur - GI/Abdominal GI/Abdominal exam: Present: Tender RUQ with palpation, normal bowel sounds, soft , no peritoneal signs. Non-distended - Extremities Exam Extremities exam: Present: warm. Absent: calf tenderness, cyanotic, pedal edema - Neurological Exam Neurological exam: Present: CN II-XII intact, oriented X3, no focal deficits. Absent: pronater drift, facial droop, speech deficit - Skin Skin exam: Present: dry, intact - Assessment and Plan (1) Abdominal pain Current Visit: No Status: Chronic Assessment and Plan: Pt complaining of severe abdominal pain.Given fentanyl with little relief. CT abdomen and pelvis without contrast did not show anything acute. Discussed with GI, Dr. Colon and states possibly myofascial if pain persists to consult in am. Discussed with general surgery and Dr. Dennis has agreed to see pt in consult. Requesting STAT CT abdoemn and pelvis with ocntrast. Discussed with Nephro and states ok to proceed with contrast especially in light of pt's severe symptoms. CT abdomen and pelvis CT/CT abd pelvis wo no iv no oral IMPRESSION: Double-J right-sided ureteral stent appears in stable and satisfactory position. No evidence of hydronephrosis or other acute genitourinary process. Minor circumferential urinary bladder wall thickening likely related to the history of cystitis. Incidental findings include midline ventral hernias containing fat but no bowel, previous cholecystectomy, previous hysterectomy and atherosclerotic abdominal aortic calcification. There is a small right-sided pleural effusion of unclear etiology with right basilar atelectasis. D/ / Alban Claros MD / Alban Claros MD Interpreting Provider: Alban Claros MD (2) Acute cystitis Current Visit: Yes Status: Acute Assessment and Plan: Has been on Rocephin. No urine culture sent due to many squamous cells on UA. Will recheck urine analysis. (3) Ischemic colitis Current Visit: Yes Status: Acute Assessment and Plan: Recent diagnosis of severe ischemic colitis. colonoscopy done 08/01/2018 showed mucosal ulceration ad she had biopsies taken at that time. (4) Lung cancer Current Visit: No Status: Chronic (5) Altered mental status Current Visit: Yes Status: Acute Assessment and Plan: likely due to metabolic encephalopathy. Seen by neurology and MRI brain done but results pending. Code(s): R41.82 - Altered mental status, unspecified SNOMED Code(s): 418527266 (6) Hypophosphatemia Current Visit: Yes Status: Acute Assessment and Plan: corrected. Up to 4.5 (7) Malnutrition Current Visit: Yes Status: Acute DVT Prophylaxis: SCD - Summary of Assessment and Plan Summary of Assessment and Plan: Pt complaining or RUQ pain rdaiating to her right side and associated with nausea. She reports feeling nauseous and is spitting up what appears to be sputum. She is on oxygen and saturation is 98-100%. - Time Spent with Patient Total time spent is greater than 50% in coordination of care (as documented) at patient's floor/unit and/or counseling patient: less than 15 minutes Plan of Care Discussed with: patient Internal Medicine: Result - Labs CBC & Chem 7: 08/07/18 04:56 08/07/18 04:56 Labs: Short CBC 08/07/18 Range/Units 04:56 WBC 6.7 (4.3-11.1) K/mcL Hgb 10.2 L (11.5-15.4) g/dL Hct 31.5 L (35.3-44.9) % Plt Count 297 (140-400) K/mcL Neutrophils # 4.6 (1.6-8.9) K/mcL BMP 08/07/18 04:56 Sodium 134 L Potassium 3.5 Chloride 100 Carbon Dioxide 24 BUN 18 Creatinine 3.45 H Glucose 154 H Calcium 8.6 Liver Function 08/07/18 Range/Units 13:44 Total Bilirubin 0.6 (0.3-1.0) mg/dL Direct Bilirubin 0.1 (0.0-0.2) mg/dL AST 30 (13-39) Units/L ALT 12 (7-52) Units/L Alkaline Phosphatase 106 H (34-104) Units/L Albumin 3.3 L (3.5-5.7) g/dL - ABG Interpretation ABG results: PT/INR, D-dimer PT 14.1 Seconds (9.4-12.1) H 08/06/18 12:13 - Impressions Impressions Head CT 08/07/18 01:08 IMPRESSION: No acute intracranial abnormality. Motion artifact obscures the skull base. D/ / Channing Adhikari / Channing Adhikari Interpreting Provider: Channing Adhikari Abdomen/Pelvis CT 08/07/18 13:22 IMPRESSION: Double-J right-sided ureteral stent appears in stable and satisfactory position. No evidence of hydronephrosis or other acute genitourinary process. Minor circumferential urinary bladder wall thickening likely related to the history of cystitis. Incidental findings include midline ventral hernias containing fat but no bowel, previous cholecystectomy, previous hysterectomy and atherosclerotic abdominal aortic calcification. There is a small right-sided pleural effusion of unclear etiology with right basilar atelectasis. D/ / Alban Claros MD / Alban Claros MD Interpreting Provider: Alban Claros MD Consult Discharge Plan - Plan Referrals: Bartolo Washburn MD [Primary Care Provider] - (1) Abdominal pain Qualifiers: Abdominal location: generalized Qualified Code(s): R10.84 - Generalized abdominal pain (4) Lung cancer Qualifiers: Laterality: right Lung location: unspecified part of lung Qualified Code(s) : C34.91 - Malignant neoplasm of unspecified part of right bronchus or lung (5) Altered mental status Qualifiers: Altered mental status type: unspecified Qualified Code(s): R41.82 - Altered mental status, unspecified (7) Malnutrition Qualifiers: Malnutrition type: protein-calorie malnutrition Protein-calorie malnutrition severity: moderate Qualified Code(s): E44.0 - Moderate protein-calorie malnutrition
[2018-08-07] MEDS ORDERED: Isovue-370 500 ML INFUS..BTL PO ONE (16:31)
[2018-08-07 17:07] LABS: BUN/Creatinine Ratio 4 (6-26); Blood Urea Nitrogen 9 mg/dL (8-23); Carbon Dioxide 26 mEq/L (23-29); Chloride 95 mEq/L (98-107); Glucose 186 mg/dL (70-105); Osmolality,Calculated 284 (280-300); Potassium 3.8 mEq/L (3.5-5.1); Sodium 135 mEq/L (136-145); Troponin I < 0.03 ng/mL (< 0.04); eGFR For Non-African Americans 23 (> 60)
[2018-08-07 18:55] LABS: Basophils # 0.1 K/mcL (0.0-0.2); Basophils % 0.8 %; Eosinophils % 0.1 %; Hematocrit 30.6 % (35.3-44.9); Hemoglobin 10.3 g/dL (11.5-15.4); Immature Granulocytes % 0.6 % (0-4); Lymphocytes # 1.5 K/mcL (0.6-4.6); Lymphocytes % 17.4 %; Mean Corpuscular HGB Conc 33.7 g/dL (31.6-35.5); Mean Corpuscular Hemoglobin 31.1 pg (28.0-33.3); Mean Corpuscular Volume 92.4 fL (83.0-100.0); Mean Platelet Volume 10.1 fL (9.4-12.4); Monocytes # 1.1 K/mcL (0.0-1.3); Monocytes % 12.7 %; Platelet Count 326 K/mcL (140-400); Red Blood Count 3.31 M/mcL (3.82-4.97); Segmented Neutrophils % 68.4 %
--- NOTE | 2018-08-07 21:36 | General Surgery Consult Note ---
Date of Encounter: 08/07/18 Time of Encounter: 17:30 Assessment and Plan (1) Abdominal pain Current Visit: Yes Status: Chronic 67F with abdominal pain and associated colitis and cystitis; hemodynamically stable; NPO IVF abx pain control serial abdominal exams no acute surgery general surgery will continue to follow Qualifiers: Abdominal location: left lower quadrant Qualified Code(s): R10.32 - Left lower quadrant pain History of Present Illness Consult date: 08/07/18 Reason for consult: abdominal pain History of present illness: 67F h/o ESRD who presented with mental status changes (patient apparently is more coherent, but not a reliable historian) and abdominal pain localized to the let side of her abdomen as well as mid abdomen. No associated fevers reported nor any diarrhea. The patient lives at an assisted living facility and was brought to the hospital due to patient complaining of abdominal pain. A CT scan was obtained which demonstrated thickening of the urinary bladder as well as thickening of the descending colon. General surgery was consulted for management recommendations. Past Med Surg Social Fam HX - Past Medical History Medical history: arthritis, cancer, coronary artery disease, diabetes, dialysis , GERD, hyperlipidemia, hypertension, myocardial infarction, renal disease, other Additional medical history: neuropathy, insomnia Psychiatric history: anxiety, depression - Past Surgical History Surgical History: appendectomy, cholecystectomy, coronary bypass (CABG), hysterectomy, ureteral stent, other Additional surgical history: colonoscopy - egd - tubal ligation - kidney stent - Social History Smoking Status: Former smoker Smokeless Tobacco Status: No Alcohol use: none Drug use: none - Family History Mother Living Status: Hx Family Endocrine Disorder: (DM) Father Adopted: No Hx Family Cardiac Disorders: Yes ("heart troubles") Hx Family Cancer: Yes (Prostate cancer) Hx Family Endocrine Disorder: Yes (DM) Brother Hx Family Cardiac Disorders: Yes (CAD) Hx Family Cancer: Yes (lung cancer) Medications and Allergies Folic Acid 1 mg PO DAILY 07/10/15 [History] Levothyroxine [Synthroid] 50 mcg PO QAM 07/10/15 [History] Pantoprazole Sodium [Protonix] 40 mg PO BID 07/10/15 [History] Solifenacin Succinate [Vesicare] 10 mg PO DAILY 07/10/15 [History] Aspirin 81 mg PO DAILY #30 tab.chew 04/20/16 [Rx] Metoprolol XL (24 HR) Succ [Toprol Xl] 12.5 mg PO DAILY #30 tab.er.24h 02/18/16 [Rx] Docusate [Colace] 100 mg PO BID 10/14/16 [History] Albuterol Sulfate [Proair Hfa] 2 puff IH Q4H PRN 03/17/17 [History] Atorvastatin [Lipitor] 40 mg PO HS 03/17/17 [History] Clopidogrel [Plavix] 75 mg PO DAILY 05/09/17 [History] Ondansetron ODT [Zofran ODT] 4 mg PO Q8H PRN 05/09/17 [History] Sucralfate [Carafate] 1 gm PO 0730,1630 05/09/17 [History] Folic Acid/Vit Bcomp,C [Renal-Elizabeth Tablet] 0.8 mg PO DAILY 03/01/18 [History] Furosemide [Lasix] 20 mg PO DAILY 03/01/18 [History] Amitriptyline [Elavil] 25 mg PO HS 03/26/18 [History] DULoxetine [Cymbalta] 30 mg PO Q48H 03/26/18 [History] Ergocalciferol (VITAMIN D2) [Drisdol] 50,000 unit PO MO 03/26/18 [History] Insulin ASPART [NovoLOG] 2 - 8 unit SQ TID 03/26/18 [History] Insulin DETEMIR [Levemir] 12 unit SQ QAM 03/26/18 [History] Tamsulosin [Flomax] 0.4 mg PO DAILY 03/26/18 [History] Zolpidem [Ambien] 5 mg PO HS 03/26/18 [History] Lactobacillus Combination No.8 [Adult Probiotic] 1 cap PO DAILY 05/04/18 [ History] Pramipexole Di-HCl [Pramipexole Dihydrochloride] 0.125 mg PO HS 05/04/18 [ History] Promethazine [Phenergan] 25 mg PO TID PRN 05/04/18 [History] Psyllium Husk [Daily Fiber] 0.52 gm PO DAILY 05/04/18 [History] SUMAtriptan Succinate [Imitrex] 6 mg SQ BID PRN 05/04/18 [History] OxyCODONE/APAP 5/325 [Percocet 5/325 MG] 1 tab PO TID PRN 3 Days #9 tablet 07/30 [Rx] Baclofen [Lioresal] 10 mg PO TID PRN 07/31/18 [History] Lisinopril [Zestril] 20 mg PO DAILY 07/31/18 [History] Mirtazapine [Remeron] 15 mg PO HS 07/31/18 [History] Ciprofloxacin [Cipro] 500 mg PO Q24H 10 Days #10 tablet 08/04/18 [Rx] metroNIDAZOLE [Flagyl] 500 mg PO TID 10 Days #30 tablet 08/04/18 [Rx] Insulin DETEMIR [Levemir Flextouch] 14 unit SQ QPM 08/06/18 [History] 3 Allergy/AdvReac Type Severity Reaction Status Date / Time adhesive tape Allergy Redness of Verified 07/15/18 11:57 Skin latex Allergy Swelling Verified 07/15/18 11:57 of Lip/Tongue/Throat Sulfa (Sulfonamide Allergy Rash Verified 07/15/18 11:57 Antibiotics) Review of Systems All systems PM: limited ROS due to patient inability to give a history General Surgery Exam Initial Vital Signs Temp Pulse Resp BP Pulse Ox 98.1 F 87 22 151/101 88 08/06/18 11:13 08/06/18 11:13 08/06/18 11:13 08/06/18 11:13 08/06/18 11:13 - General physical appearance no distress - Eyes normal ocular movement - ENT normocephalic - Neck no lymphadectomy - Respiratory normal expansion, normal respiratory effort - Cardiovascular Cardiovascular exam: Present: RRR - Abdomen Abdomen general surgery: Present: soft, tender Abdominal Tenderness: Present: LLQ - Integumentary Integumentary general surgery: Present: warm and dry - Neurologic Present: CN 2-12 grossly intact, confused - Psychiatric Psychiatric general surgery: Present: A&Ox3 Exam Initial Vital Signs Temp Pulse Resp BP Pulse Ox 98.1 F 87 22 151/101 88 08/06/18 11:13 08/06/18 11:13 08/06/18 11:13 08/06/18 11:13 08/06/18 11:13 Results - Labs 08/07/18 18:43 08/07/18 16:33 Abnormal lab results RBC 3.31 M/mcL (3.82-4.97) L 08/07/18 18:43 Hgb 10.3 g/dL (11.5-15.4) L 08/07/18 18:43 Hct 30.6 % (35.3-44.9) L 08/07/18 18:43 PT 14.1 Seconds (9.4-12.1) H 08/06/18 12:13 Sodium 135 mEq/L (136-145) L 08/07/18 16:33 Chloride 95 mEq/L (98-107) L 08/07/18 16:33 Creatinine 2.12 mg/dL (0.60-1.20) H 08/07/18 16:33 Est GFR ( Amer) 28 (> 60) L 08/07/18 16:33 Est GFR (Non-Af Amer) 23 (> 60) L 08/07/18 16:33 BUN/Creatinine Ratio 4 (6-26) L 08/07/18 16:33 Glucose 186 mg/dL (70-105) H 08/07/18 16:33 POC Glucose 166 mg/dL (70-99) H 08/07/18 07:12 Alkaline Phosphatase 106 Units/L (34-104) H 08/07/18 13:44 Albumin 3.3 g/dL (3.5-5.7) L 08/07/18 13:44 Globulin 4.1 g/dL (2.4-3.5) H 08/07/18 13:44 Albumin/Globulin Ratio 0.8 (1.1-2.2) L 08/07/18 13:44 Urine Clarity Cloudy (Clear) A 08/06/18 11:50 Ur Specific [place] < 1.005 (1.010-1.025) L 08/06/18 11:50 Urine Protein >=300 mg/dL (Neg-Trace) H 08/06/18 11:50 Urine Glucose (UA) 100 mg/dL (Normal) H 08/06/18 11:50 Urine Blood Moderate (Negative) H 08/06/18 11:50 Ur Leukocyte Esterase Large (Negative) H 08/06/18 11:50 Urine Microscopic RBC 5-15 per hpf (0-3) H 08/06/18 11:50 Urine Microscopic WBC TNTC per hpf (0-3) H 08/06/18 11:50 Ur Squamous Epith Cells Many per lpf (None-Few) H 08/06/18 11:50 Urine Yeast Few per hpf (None Seen) H 08/06/18 11:50 Ur Culture Indicated? NO. (NO) A 08/06/18 11:50 Diabetes panel 08/07/18 08/07/18 08/07/18 Range/Units 04:56 13:44 16:33 Sodium 134 L 135 L (136-145) mEq/L Potassium 3.5 3.8 (3.5-5.1) mEq/L Chloride 100 95 L (98-107) mEq/L Carbon Dioxide 24 26 (23-29) mEq/L BUN 18 9 (8-23) mg/dL Creatinine 3.45 H 2.12 H (0.60-1.20) mg/dL Glucose 154 H 186 H (70-105) mg/dL Calcium 8.6 9.0 (8.6-10.3) mg/dL AST 30 (13-39) Units/L ALT 12 (7-52) Units/L Alkaline Phosphatase 106 H (34-104) Units/L Albumin 3.3 L (3.5-5.7) g/dL Calcium panel 08/07/18 08/07/18 08/07/18 Range/Units 04:56 13:44 16:33 Calcium 8.6 9.0 (8.6-10.3) mg/dL Phosphorus 4.5 (2.7-4.5) mg/dL Albumin 3.3 L (3.5-5.7) g/dL Pituitary panel 08/07/18 08/07/18 Range/Units 04:56 16:33 Sodium 134 L 135 L (136-145) mEq/L Potassium 3.5 3.8 (3.5-5.1) mEq/L Chloride 100 95 L (98-107) mEq/L Carbon Dioxide 24 26 (23-29) mEq/L BUN 18 9 (8-23) mg/dL Creatinine 3.45 H 2.12 H (0.60-1.20) mg/dL Glucose 154 H 186 H (70-105) mg/dL Calcium 8.6 9.0 (8.6-10.3) mg/dL Adrenal panel 08/07/18 08/07/1818 Range/Units 04:56 13:44 16:33 Sodium 134 L 135 L (136-145) mEq/L Potassium 3.5 3.8 (3.5-5.1) mEq/L Chloride 100 95 L (98-107) mEq/L Carbon Dioxide 24 26 (23-29) mEq/L BUN 18 9 (8-23) mg/dL Creatinine 3.45 H 2.12 H (0.60-1.20) mg/dL Glucose 154 H 186 H (70-105) mg/dL Calcium 8.6 9.0 (8.6-10.3) mg/dL Total Bilirubin 0.6 (0.3-1.0) mg/dL AST 30 (13-39) Units/L ALT 12 (7-52) Units/L Alkaline Phosphatase 106 H (34-104) Units/L Albumin 3.3 L (3.5-5.7) g/dL All other labs normal. - Imaging CT scan - abdomen: report reviewed, image reviewed CT scan - pelvis: report reviewed, image reviewed Consult Discharge Plan - Plan Referrals: Bartolo Washburn MD [Primary Care Provider] -
[2018-08-07] MEDS: WATER IVPB SCH (22:25)
[2018-08-07] MEDS: D5 IVPB SCH (22:25)
[2018-08-07] MEDS: THIAMINE IVPB SCH (22:25)
[2018-08-07] MEDS ORDERED: OXYCODONE Oral CONC 10 MG/0.5 ML ORAL.SYG SL ONE (23:51)
[2018-08-08] MEDS: *HR* FentaNYL (PF) 100 MCG/2 ML VIAL IVP PRN ×3 (02:28→21:22)
[2018-08-08] MEDS ORDERED: OXYCODONE Oral CONC 10 MG/0.5 ML ORAL.SYG SL ONE (05:34)
[2018-08-08 05:44] LABS: Basophils % 0.4 %; Eosinophils # 0.1 K/mcL (0.0-0.6); Eosinophils % 1.4 %; Hematocrit 26.5 % (35.3-44.9); Hemoglobin 8.9 g/dL (11.5-15.4); Immature Granulocytes % 0.7 % (0-4); Lymphocytes % 27.6 %; Mean Corpuscular HGB Conc 33.6 g/dL (31.6-35.5); Mean Corpuscular Hemoglobin 31.3 pg (28.0-33.3); Mean Corpuscular Volume 93.3 fL (83.0-100.0); Mean Platelet Volume 10.2 fL (9.4-12.4); Monocytes # 1.2 K/mcL (0.0-1.3); Monocytes % 16.2 %; Neutrophils # 3.9 K/mcL (1.6-8.9); Platelet Count 326 K/mcL (140-400); Red Blood Count 2.84 M/mcL (3.82-4.97); Red Cell Distribution Width 13.3 % (11.5-14.5); Segmented Neutrophils % 53.7 %
[2018-08-08 05:52] LABS: Calcium 8.2 mg/dL (8.6-10.3); Phosphorous 2.6 mg/dL (2.7-4.5); Potassium 3.3 mEq/L (3.5-5.1)
[2018-08-08] MEDS ORDERED: *HR* LORazepam 2 MG/ML VIAL IVP ONE (05:54)
--- NOTE | 2018-08-08 07:50 | General Surgery Progress Note ---
<Ingris Romero - Last Filed: 08/08/18 07:46> Date of Encounter: 08/08/18 Time of Encounter: 07:46 - Assessment and Plan (1) Abdominal pain Current Visit: Yes Status: Chronic Likely due to both colitis and cystitis, recent colonoscopy on 08-01 showed nonbleeding ulcerated mucosa in sigmoid colon suspicious for ischemic colitis - NPO until pain improves - continue supportive care and pain management - serial abdominal exams - continue IVF - continue to treat medically with IV Rocephin - no surgical intervention planned at this time - will appreciate GIs recommendations General surgery will continue to follow Qualifiers: Abdominal location: left upper quadrant Qualified Code(s): R10.12 - Left upper quadrant pain Subjective Patient reports: pain is less, bowel movement, other (remains altered) Objective Vital Signs - Last 8 Hours Temp Pulse Resp BP Pulse Ox 08/08/18 07:11 99.1 F 100 16 110/59 98 08/08/18 04:00 99.4 F 84 17 159/84 100 08/08/18 01:22 99.8 F H 96 17 154/74 96 Intake and Output 08/07/18 08/07/18 08/08/18 15:59 23:59 07:59 Intake Total 610 / 610 Output Total 1600 / 1600 Balance -990 / -990 Intake: IV Fluids Rocephin 1,000 MG In Water for inj. (sterile) 10 ML @ 600 mls/ hr IVP DAILY [facility] Rx#:[id number] Intake, Rinseback and Flushes 600 / 600 Output: Total Dialysis (HD) Output 1600 / 1600 Other: Stool Size Large Stool Consistency soft Stool Color Jeb Colored Weight 73.5 kg Blood Glucose* 133 140 Hemodialysis Net Fluid Removed 1000 (mL) Patient Weight 08/08/18 23:59 Weight 73.5 kg - General physical appearance well developed, well nourished, no distress - Eyes normal ocular movement - ENT normal pinna, normal nares, normal mucosa - Respiratory normal expansion, normal respiratory effort, clear to auscultation - Cardiovascular Cardiovascular exam: Present: RRR, no murmurs/rubs/gallops - Abdomen Abdomen: Present: bowel sounds present, soft Abdominal Tenderness: RLQ, diffusely Hernia: none - Integumentary no rash, no growths, no abnormal pigmentation - Neurologic CN 2-12 grossly intact, normal coordination, normal sensation - Musculoskeletal normal gait, normal posture - Psychiatric speech is normal, other (short term memory poor, confused) - Labs 08/08/18 05:05 08/08/18 05:05 Diabetes panel 08/07/18 08/07/18 08/07/18 Range/Units 04:56 13:44 16:33 Sodium 134 L 135 L (136-145) mEq/L Potassium 3.5 3.8 (3.5-5.1) mEq/L Chloride 100 95 L (98-107) mEq/L Carbon Dioxide 24 26 (23-29) mEq/L BUN 18 9 (8-23) mg/dL Creatinine 3.45 H 2.12 H (0.60-1.20) mg/dL Glucose 154 H 186 H (70-105) mg/dL Calcium 8.6 9.0 (8.6-10.3) mg/dL AST 30 (13-39) Units/L ALT 12 (7-52) Units/L Alkaline Phosphatase 106 H (34-104) Units/L Albumin 3.3 L (3.5-5.7) g/dL 08/08/18 Range/Units 05:05 Sodium 136 (136-145) mEq/L Potassium 3.3 L (3.5-5.1) mEq/L Chloride 99 (98-107) mEq/L Carbon Dioxide 25 (23-29) mEq/L BUN 12 (8-23) mg/dL Creatinine 2.84 H (0.60-1.20) mg/dL Glucose 126 H (70-105) mg/dL Calcium 8.2 L (8.6-10.3) mg/dL AST (13-39) Units/L ALT (7-52) Units/L Alkaline Phosphatase (34-104) Units/L Albumin (3.5-5.7) g/dL Calcium panel 08/07/18 08/07/18 08/07/18 Range/Units 04:56 13:44 16:33 Calcium 8.6 9.0 (8.6-10.3) mg/dL Phosphorus 4.5 (2.7-4.5) mg/dL Albumin 3.3 L (3.5-5.7) g/dL 08/08/18 Range/Units 05:05 Calcium 8.2 L (8.6-10.3) mg/dL Phosphorus 2.6 L (2.7-4.5) mg/dL Albumin (3.5-5.7) g/dL Pituitary panel 08/07/18 08/07/18 08/08/18 Range/Units 04:56 16:33 05:05 Sodium 134 L 135 L 136 (136-145) mEq/L Potassium 3.5 3.8 3.3 L (3.5-5.1) mEq/L Chloride 100 95 L 99 (98-107) mEq/L Carbon Dioxide 24 26 25 (23-29) mEq/L BUN 18 9 12 (8-23) mg/dL Creatinine 3.45 H 2.12 H 2.84 H (0.60-1.20) mg/dL Glucose 154 H 186 H 126 H (70-105) mg/dL Calcium 8.6 9.0 8.2 L (8.6-10.3) mg/dL Adrenal panel 08/07/18 08/07/18 08/07/18 Range/Units 04:56 13:44 16:33 Sodium 134 L 135 L (136-145) mEq/L Potassium 3.5 3.8 (3.5-5.1) mEq/L Chloride 100 95 L (98-107) mEq/L Carbon Dioxide 24 26 (23-29) mEq/L BUN 18 9 (8-23) mg/dL Creatinine 3.45 H 2.12 H (0.60-1.20) mg/dL Glucose 154 H 186 H (70-105) mg/dL Calcium 8.6 9.0 (8.6-10.3) mg/dL Total Bilirubin 0.6 (0.3-1.0) mg/dL AST 30 (13-39) Units/L ALT 12 (7-52) Units/L Alkaline Phosphatase 106 H (34-104) Units/L Albumin 3.3 L (3.5-5.7) g/dL 08/08/18 Range/Units 05:05 Sodium 136 (136-145) mEq/L Potassium 3.3 L (3.5-5.1) mEq/L Chloride 99 (98-107) mEq/L Carbon Dioxide 25 (23-29) mEq/L BUN 12 (8-23) mg/dL Creatinine 2.84 H (0.60-1.20) mg/dL Glucose 126 H (70-105) mg/dL Calcium 8.2 L (8.6-10.3) mg/dL Total Bilirubin (0.3-1.0) mg/dL AST (13-39) Units/L ALT (7-52) Units/L Alkaline Phosphatase (34-104) Units/L Albumin (3.5-5.7) g/dL Consult Discharge Plan - Plan Referrals: Bartolo Washburn MD [Primary Care Provider] - <Mane Dennis - Last Filed: 08/08/18 09:28> Date of Encounter: 08/08/18 - Assessment and Plan (1) Abdominal pain Current Visit: Yes Status: Chronic Qualifiers: Abdominal location: left upper quadrant Qualified Code(s): R10.12 - Left upper quadrant pain Objective Vital Signs - Last 8 Hours Temp Pulse Resp BP Pulse Ox 08/08/18 07:11 99.1 F 100 16 110/59 98 08/08/18 04:00 99.4 F 84 17 159/84 100 Intake and Output 08/07/18 08/08/18 08/08/18 23:59 07:59 15:59 Other: Stool Size Large Stool Consistency soft Stool Color Jeb Colored Weight 73.5 kg Blood Glucose* 133 140 Patient Weight 08/08/18 23:59 Weight 73.5 kg - Labs 08/08/18 05:05 08/08/18 05:05 Diabetes panel 08/07/18 08/07/18 08/07/18 Range/Units 04:56 13:44 16:33 Sodium 134 L 135 L (136-145) mEq/L Potassium 3.5 3.8 (3.5-5.1) mEq/L Chloride 100 95 L (98-107) mEq/L Carbon Dioxide 24 26 (23-29) mEq/L BUN 18 9 (8-23) mg/dL Creatinine 3.45 H 2.12 H (0.60-1.20) mg/dL Glucose 154 H 186 H (70-105) mg/dL Calcium 8.6 9.0 (8.6-10.3) mg/dL AST 30 (13-39) Units/L ALT 12 (7-52) Units/L Alkaline Phosphatase 106 H (34-104) Units/L Albumin 3.3 L (3.5-5.7) g/dL 08/08/18 Range/Units 05:05 Sodium 136 (136-145) mEq/L Potassium 3.3 L (3.5-5.1) mEq/L Chloride 99 (98-107) mEq/L Carbon Dioxide 25 (23-29) mEq/L BUN 12 (8-23) mg/dL Creatinine 2.84 H (0.60-1.20) mg/dL Glucose 126 H (70-105) mg/dL Calcium 8.2 L (8.6-10.3) mg/dL AST (13-39) Units/L ALT (7-52) Units/L Alkaline Phosphatase (34-104) Units/L Albumin (3.5-5.7) g/dL Calcium panel 08/07/18 08/07/18 08/07/18 Range/Units 04:56 13:44 16:33 Calcium 8.6 9.0 (8.6-10.3) mg/dL Phosphorus 4.5 (2.7-4.5) mg/dL Albumin 3.3 L (3.5-5.7) g/dL 08/08/18 Range/Units 05:05 Calcium 8.2 L (8.6-10.3) mg/dL Phosphorus 2.6 L (2.7-4.5) mg/dL Albumin (3.5-5.7) g/dL Pituitary panel 08/07/18 08/07/18 08/08/18 Range/Units 04:56 16:33 05:05 Sodium 134 L 135 L 136 (136-145) mEq/L Potassium 3.5 3.8 3.3 L (3.5-5.1) mEq/L Chloride 100 95 L 99 (98-107) mEq/L Carbon Dioxide 24 26 25 (23-29) mEq/L BUN 18 9 12 (8-23) mg/dL Creatinine 3.45 H 2.12 H 2.84 H (0.60-1.20) mg/dL Glucose 154 H 186 H 126 H (70-105) mg/dL Calcium 8.6 9.0 8.2 L (8.6-10.3) mg/dL Adrenal panel 08/07/18 08/07/18 08/07/18 Range/Units 04:56 13:44 16:33 Sodium 134 L 135 L (136-145) mEq/L Potassium 3.5 3.8 (3.5-5.1) mEq/L Chloride 100 95 L (98-107) mEq/L Carbon Dioxide 24 26 (23-29) mEq/L BUN 18 9 (8-23) mg/dL Creatinine 3.45 H 2.12 H (0.60-1.20) mg/dL Glucose 154 H 186 H (70-105) mg/dL Calcium 8.6 9.0 (8.6-10.3) mg/dL Total Bilirubin 0.6 (0.3-1.0) mg/dL AST 30 (13-39) Units/L ALT 12 (7-52) Units/L Alkaline Phosphatase 106 H (34-104) Units/L Albumin 3.3 L (3.5-5.7) g/dL 08/08/18 Range/Units 05:05 Sodium 136 (136-145) mEq/L Potassium 3.3 L (3.5-5.1) mEq/L Chloride 99 (98-107) mEq/L Carbon Dioxide 25 (23-29) mEq/L BUN 12 (8-23) mg/dL Creatinine 2.84 H (0.60-1.20) mg/dL Glucose 126 H (70-105) mg/dL Calcium 8.2 L (8.6-10.3) mg/dL Total Bilirubin (0.3-1.0) mg/dL AST (13-39) Units/L ALT (7-52) Units/L Alkaline Phosphatase (34-104) Units/L Albumin (3.5-5.7) g/dL - Attending Attestation patient seen and examined. i have reviewed all labs, imaging, and notes. i agree with the above assessment and plan and wish to add the following... afebrile; mental status is improved, but patient still confused; decreased abdominal pain; non peritoneal on exam NPO consider IV zosyn serial exam if pain improved or resolved in AM, okay to start diet will cont to follow
[2018-08-08] MEDS: cefTRIAXone 1,000 MG in Water for inj. (sterile) 20 ML 10 ML IVP SCH (09:48)
[2018-08-08] MEDS: THIAMINE IVPB SCH (09:49)
[2018-08-08] MEDS: D5 IVPB SCH (09:49)
[2018-08-08] MEDS: WATER IVPB SCH (09:49)
--- NOTE | 2018-08-08 10:40 | Nephrology Progress Note ---
Date of Encounter: 08/08/18 Time of Encounter: 10:38 - Assessment and Plan (1) Altered mental status Current Visit: Yes Status: Acute Appears resolving. Per primary. Qualifiers: Altered mental status type: unspecified Qualified Code(s): R41.82 - Altered mental status, unspecified (2) Hypophosphatemia Current Visit: Yes Status: Acute Will ordered a recheck after HD. Will replace accordingly. Phos is 2.6 today, will trend. (3) ESRD (end stage renal disease) on dialysis Current Visit: Yes Status: Chronic ESRD on HD MWF HD planned for tomorrow. Renal diet, when able to eat. (4) Abdominal pain Current Visit: Yes Status: Acute Right sided in nature and radiates around her side. Surgery consult yesterday. appreciate recommendations. Pt affirms pain is much better today. Qualifiers: Qualified Code(s): R10.9 - Unspecified abdominal pain Subjective Principal diagnosis: hypoglycemia Interval history: Pt seen and examined, doing well. Admits nausea/vomiting/diarrhea are better. Denies CP/SOB. Objective - Vital Signs Vital signs: Vital Signs Temp Pulse Resp BP Pulse Ox 08/08/18 07:11 99.1 F 100 16 110/59 98 08/08/18 04:00 99.4 F 84 17 159/84 100 08/08/18 01:22 99.8 F H 96 17 154/74 96 08/07/18 22:23 98.4 F 96 17 171/76 100 08/07/18 12:50 97.7 F 20 155/64 08/07/18 12:30 126/97 08/07/18 12:15 124/71 08/07/18 12:00 131/56 08/07/18 11:45 132/94 08/07/18 11:30 128/65 08/07/18 11:15 155/89 08/07/18 11:00 176/99 08/07/18 10:45 163/122 Intake and Output 08/07/18 08/08/18 08/08/18 23:59 07:59 15:59 Intake Total 100 / 100 Balance 100 / 100 Intake: IV Fluids 100 / 100 Vitamin B-1 500 MG In Dextrose 100 / 100 5% 100 ML @ 100 mls/hr IVPB DAILY [facility] Rx#:[id number] Other: Stool Size Large Stool Consistency soft Stool Color Jeb Colored Weight 73.5 kg Blood Glucose* 133 140 Patient Weight 08/08/18 23:59 Weight 73.5 kg - General Appearance General appearance: Present: chronically ill, fatigue, frail EENT: Present: ATNC Neck: Present: supple Respiratory: Present: clear Cardiology: Present: no edema, normal S1, normal S2 Dialysis Vascular Access: Arteriovenous Fistula thrill: Yes bruit: Yes Gastrointestinal: Present: normoactive bowel sounds, no tenderness, no guarding Integumentary: Present: no rash, warm and dry Neurologic: Present: alert and oriented x3 Psychiatric: Present: mood/affect appropriate, cooperative - Lab 08/08/18 05:05 08/08/18 05:05 Most recent lab results Calcium 8.2 mg/dL (8.6-10.3) L 08/08/18 05:05 Phosphorus 2.6 mg/dL (2.7-4.5) L 08/08/18 05:05 Magnesium 1.7 mg/dL (1.6-2.6) 08/06/18 12:13 Consult Discharge Plan - Plan Referrals: Bartolo Washburn MD [Primary Care Provider] -
--- NOTE | 2018-08-08 11:43 | Neurology Progress Note ---
<Pat Moreno N - Last Filed: 08/08/18 11:59> Date of Encounter: 08/08/18 Time of Encounter: 11:42 Assessment and Plan (1) Anisocoria Current Visit: Yes Status: Acute Likely benign simple anisocoria. Vision is intact and unchanged. No evidence of a third nerve palsy. No focal neurological deficits MRI did not reveal any acute abnormality (2) Altered mental status Current Visit: Yes Status: Acute Likely due to toxic metabolic encephalopathy secondary to acute infection, improved today and patient is alert and oriented x 3 No focal neurological deficits and her MRI was negative for any acute intracranial abnormalities Neurology will sign off, please call with any questions Qualifiers: Altered mental status type: unspecified Qualified Code(s): R41.82 - Altered mental status, unspecified Subjective Principal diagnosis: Altered Mental Status Interval history: Patient seen and examined this morning at bedside. Mental status is improved and she is more alert and awake today and no longer in severe discomfort. She is able to communicate verbally without difficulty and is alert and oriented times 3. Complains of RUQ pain but is not in severe distress. She still has anisocoria, but denies any acute changes in her vision or any eye complaints. No other focal neurological complaints. MRI brain negative for acute intracranial abnormality. Objective - Constitutional Vitals: Temp Pulse Resp BP Pulse Ox 97.9 F 67 16 152/71 100 08/08/18 11:22 08/08/18 11:22 08/08/18 11:22 08/08/18 11:22 08/08/18 11:22 Exam: Constitutional: alert and oriented x 3, mild discomfort from abdominal pain Cranial Nerves: extraocular muscles are intact. There is still anisocoria present with the right pupil larger than left. minimally responsive to light. Vision is intact and at baseline with corrective lenses. rest of cranial nerves are grossly intact. Extremities: Can move all four extremities to command, babinski negative. No sensory or motor complaints. Results - Laboratory Findings CBC and BMP: 08/08/18 05:05 08/08/18 05:05 Abnormal lab findings: Abnormal lab results RBC 2.84 M/mcL (3.82-4.97) L 08/08/18 05:05 Hgb 8.9 g/dL (11.5-15.4) L 08/08/18 05:05 Hct 26.5 % (35.3-44.9) L 08/08/18 05:05 PT 14.1 Seconds (9.4-12.1) H 08/06/18 12:13 Potassium 3.3 mEq/L (3.5-5.1) L 08/08/18 05:05 Creatinine 2.84 mg/dL (0.60-1.20) H 08/08/18 05:05 Est GFR ( Amer) 20 (> 60) L 08/08/18 05:05 Est GFR (Non-Af Amer) 16 (> 60) L 08/08/18 05:05 BUN/Creatinine Ratio 4 (6-26) L 08/08/18 05:05 Glucose 126 mg/dL (70-105) H 08/08/18 05:05 POC Glucose 133 mg/dL (70-99) H 08/07/18 22:19 Calcium 8.2 mg/dL (8.6-10.3) L 08/08/18 05:05 Phosphorus 2.6 mg/dL (2.7-4.5) L 08/08/18 05:05 Alkaline Phosphatase 106 Units/L (34-104) H 08/07/18 13:44 Albumin 3.3 g/dL (3.5-5.7) L 08/07/18 13:44 Globulin 4.1 g/dL (2.4-3.5) H 08/07/18 13:44 Albumin/Globulin Ratio 0.8 (1.1-2.2) L 08/07/18 13:44 Urine Clarity Cloudy (Clear) A 08/06/18 11:50 Ur Specific [place] < 1.005 (1.010-1.025) L 08/06/18 11:50 Urine Protein >=300 mg/dL (Neg-Trace) H 08/06/18 11:50 Urine Glucose (UA) 100 mg/dL (Normal) H 08/06/18 11:50 Urine Blood Moderate (Negative) H 08/06/18 11:50 Ur Leukocyte Esterase Large (Negative) H 08/06/18 11:50 Urine Microscopic RBC 5-15 per hpf (0-3) H 08/06/18 11:50 Urine Microscopic WBC TNTC per hpf (0-3) H 08/06/18 11:50 Ur Squamous Epith Cells Many per lpf (None-Few) H 08/06/18 11:50 Urine Yeast Few per hpf (None Seen) H 08/06/18 11:50 Ur Culture Indicated? NO. (NO) A 08/06/18 11:50 Consult Discharge Plan - Plan Referrals: Bartolo Washburn MD [Primary Care Provider] - <Gomez Cope - Last Filed: 08/08/18 15:50> Date of Encounter: 08/08/18 Assessment and Plan (1) Anisocoria Current Visit: Yes Status: Acute As above. No evidence of sympathetic, parasympathetic, mass lesion affecting either orbit. No evidence of optic nerve pathology. No focal or lateralized deficits present today. I believe that the confusion was more than likely due to symptoms of acute urinary tract infection. She does still have some complaints of stomach discomfort. I will defer further workup of this to the discretion of internal medicine. I will reevaluate your request. Subjective Interval history: The chart was reviewed, the patient was seen and examined independently. Case was discussed with the neurology resident. I agree with his assessment as stated above. Patient is awake and alert however there is a minor bit confused. But she is not encephalopathic. Her daughter is currently in the room with her feeding her. She informs me that "I had a blood clot in my right eye a long time ago". However, I find no reason to suspect intracranial aneurysm, parasympathetic nerve lesion, Judith syndrome or other sympathetic nerve lesion falling either orbit. As mentioned previously are believed that her encephalopathy was secondary to urinary tract infection. MRI scan of the brain was negative. Objective - Constitutional Vitals: Temp Pulse Resp BP Pulse Ox 98.2 F 72 16 98/62 97 08/08/18 15:17 08/08/18 15:17 08/08/18 15:17 08/08/18 15:17 08/08/18 15:17 - Neurological Exam Motor Examination: Present: grossly full strength in all extremities Sensation intact: Present: intact Reflexes: Biceps: 1+, Triceps: 1+, Brachioradialis: 1+, Patella: 1+, Achilles: 1 + Mental Status Examination: Present: awake, alert, oriented to person, oriented to place, answers questions appropriately. Absent: oriented to time, follows commands appropriately (She has a slight bit of motor apraxia.) Cranial nerve examination: Present: EOMI, corneal reflexes brisk symmetrically, sensory to face intact, mastication intact, no facial asymmetry is present, no dysarthria, tongue protrudes midline. Absent: PERRL (Pupillary asymmetry remains. The right pupil is slightly larger, both pupils are sluggish to react. ) Results - Laboratory Findings CBC and BMP: 08/08/18 05:05 08/08/18 05:05 Abnormal lab findings: Abnormal lab results RBC 2.84 M/mcL (3.82-4.97) L 08/08/18 05:05 Hgb 8.9 g/dL (11.5-15.4) L 08/08/18 05:05 Hct 26.5 % (35.3-44.9) L 08/08/18 05:05 PT 14.1 Seconds (9.4-12.1) H 08/06/18 12:13 Potassium 3.3 mEq/L (3.5-5.1) L 08/08/18 05:05 Creatinine 2.84 mg/dL (0.60-1.20) H 08/08/18 05:05 Est GFR ( Amer) 20 (> 60) L 08/08/18 05:05 Est GFR (Non-Af Amer) 16 (> 60) L 08/08/18 05:05 BUN/Creatinine Ratio 4 (6-26) L 08/08/18 05:05 Glucose 126 mg/dL (70-105) H 08/08/18 05:05 POC Glucose 181 mg/dL (70-99) H 08/08/18 11:25 Calcium 8.2 mg/dL (8.6-10.3) L 08/08/18 05:05 Phosphorus 2.6 mg/dL (2.7-4.5) L 08/08/18 05:05 Alkaline Phosphatase 106 Units/L (34-104) H 08/07/18 13:44 Albumin 3.3 g/dL (3.5-5.7) L 08/07/18 13:44 Globulin 4.1 g/dL (2.4-3.5) H 08/07/18 13:44 Albumin/Globulin Ratio 0.8 (1.1-2.2) L 08/07/18 13:44 Urine Clarity Cloudy (Clear) A 08/06/18 11:50 Ur Specific [place] < 1.005 (1.010-1.025) L 08/06/18 11:50 Urine Protein >=300 mg/dL (Neg-Trace) H 08/06/18 11:50 Urine Glucose (UA) 100 mg/dL (Normal) H 08/06/18 11:50 Urine Blood Moderate (Negative) H 08/06/18 11:50 Ur Leukocyte Esterase Large (Negative) H 08/06/18 11:50 Urine Microscopic RBC 5-15 per hpf (0-3) H 08/06/18 11:50 Urine Microscopic WBC TNTC per hpf (0-3) H 08/06/18 11:50 Ur Squamous Epith Cells Many per lpf (None-Few) H 08/06/18 11:50 Urine Yeast Few per hpf (None Seen) H 08/06/18 11:50 Ur Culture Indicated? NO. (NO) A 08/06/18 11:50
--- NOTE | 2018-08-08 12:59 | Internal Med Progress Note ---
Hospitalist Progress Note - Encounter Date of Encounter: 08/08/18 Time of Encounter: 09:00 - Subjective Interval History: Pt is awake, alert, oriented x 2. Abd pain has improved. Feels hungry and ask for food. Denies nausea/vomiting/fever. - Exam Vitals: Temp Pulse Resp BP Pulse Ox 97.9 F 67 16 152/71 100 08/08/18 11:22 08/08/18 11:22 08/08/18 11:22 08/08/18 11:22 08/08/18 11:22 Exam: General appearance: Present: A&O X 0, cooperative, no acute distress Exam: as above - Head Head exam: Present: atraumatic, normocephalic - Eye Eye exam: Present: conjuntiva pink, sclera anicteric - Neck Neck exam general surgery: Present: supple, trachea midline. Absent: lymphadenopathy - Respiratory Respiratory exam: Present: CTAB. Absent: accessory muscle use, rales, rhonchi, wheezes - Cardiovascular Cardiovascular exam: Present: RRR, +S1, +S2. Absent: diastolic murmur, gallop, rubs, systolic murmur - GI/Abdominal GI/Abdominal exam: Present: Tender RUQ with palpation, normal bowel sounds, soft , no peritoneal signs. Non-distended - Extremities Exam Extremities exam: Present: warm. Absent: calf tenderness, cyanotic, pedal edema - Neurological Exam Neurological exam: Present: CN II-XII intact, oriented X3, no focal deficits. Absent: pronater drift, facial droop, speech deficit - Skin Skin exam: Present: dry, intact - Assessment and Plan (1) Lung cancer Current Visit: No Status: Chronic Assessment and Plan: squamous cell carcinoma per biopsy. Cont f/u oncology as outpatient. (2) Abdominal pain Current Visit: Yes Status: Chronic Assessment and Plan: Improved. CT abd shows cystitis/colitis. Cont UTI treatment. Start clear lquid diet now. (3) Altered mental status Current Visit: Yes Status: Acute Assessment and Plan: likely due to metabolic encephalopathy. Improved now. Code(s): R41.82 - Altered mental status, unspecified SNOMED Code(s): 849867139 (4) Hypophosphatemia Current Visit: Yes Status: Acute Assessment and Plan: corrected. Cont closely f/u. (5) Malnutrition Current Visit: Yes Status: Acute Assessment and Plan: Consult precision crop manager. (6) Acute cystitis Current Visit: Yes Status: Acute Assessment and Plan: Has been on Rocephin. No urine culture sent due to many squamous cells on UA. Will recheck urine analysis. (7) Ischemic colitis Current Visit: Yes Status: Acute Assessment and Plan: Recent diagnosis of severe ischemic colitis. colonoscopy done 08/01/2018 showed mucosal ulceration ad she had biopsies taken at that time. DVT Prophylaxis: SCD - Time Spent with Patient Total time spent is greater than 50% in coordination of care (as documented) at patient's floor/unit and/or counseling patient: 30 min 25 - 35 minutes Plan of Care Discussed with: patient Internal Medicine: Result - Labs CBC & Chem 7: 08/08/18 05:05 08/08/18 05:05 Labs: Short CBC 08/07/18 08/08/18 Range/Units 18:43 05:05 WBC 8.8 7.2 (4.3-11.1) K/mcL Hgb 10.3 L 8.9 L (11.5-15.4) g/dL Hct 30.6 L 26.5 L (35.3-44.9) % Plt Count 326 326 (140-400) K/mcL Neutrophils # 6.0 3.9 (1.6-8.9) K/mcL BMP 08/07/18 08/08/18 16:33 05:05 Sodium 135 L 136 Potassium 3.8 3.3 L Chloride 95 L 99 Carbon Dioxide 26 25 BUN 9 12 Creatinine 2.12 H 2.84 H Glucose 186 H 126 H Calcium 9.0 8.2 L Cardiac Enzymes 08/07/18 Range/Units 16:33 Troponin I < 0.03 (< 0.04) ng/mL Liver Function 08/07/18 Range/Units 13:44 Total Bilirubin 0.6 (0.3-1.0) mg/dL Direct Bilirubin 0.1 (0.0-0.2) mg/dL AST 30 (13-39) Units/L ALT 12 (7-52) Units/L Alkaline Phosphatase 106 H (34-104) Units/L Albumin 3.3 L (3.5-5.7) g/dL - ABG Interpretation ABG results: PT/INR, D-dimer PT 14.1 Seconds (9.4-12.1) H 08/06/18 12:13 - Impressions Impressions Brain MRI 08/07/18 04:02 IMPRESSION: Mild chronic small vessel ischemic disease within the periventricular white matter. No evidence of acute intracranial abnormality. D/ / 08/07/2018 16:11:21 Filipe Mosley MD / [email or web address] Interpreting Provider: Filipe Mosley MD Abdomen/Pelvis CT 08/07/18 13:22 IMPRESSION: Double-J right-sided ureteral stent appears in stable and satisfactory position. No evidence of hydronephrosis or other acute genitourinary process. Minor circumferential urinary bladder wall thickening likely related to the history of cystitis. Incidental findings include midline ventral hernias containing fat but no bowel, previous cholecystectomy, previous hysterectomy and atherosclerotic abdominal aortic calcification. There is a small right-sided pleural effusion of unclear etiology with right basilar atelectasis. D/ / Alban Claros MD / Alban Claros MD Interpreting Provider: Alban Claros MD Chest/Abdomen X-ray 08/07/18 15:37 IMPRESSION: 1. Right-sided pleural effusion 2. Bowel gas pattern suggesting an ileus 3. Double-J stent in place on the right side D/ / Gomez Emanuel MD / Gomez Emanuel MD Interpreting Provider: Gomez Emanuel MD Abdomen/Pelvis CT 08/07/18 16:14 IMPRESSION: Urothelial enhancement, bladder wall thickening and inflammatory changes surrounding the bladder are highly suspicious for infection. Wall thickening of the adjacent colon may be secondary to inflammatory changes surrounding the bladder or due to colitis. Right-sided nephroureteral stent in place with unchanged residual hydronephrosis. Small right-sided pleural effusion, increased from the prior study. D/ / Arnold Hernandez MD / Arnold Hernandez MD Interpreting Provider: Arnold Hernandez MD Consult Discharge Plan - Plan Referrals: Bartolo Washburn MD [Primary Care Provider] - (1) Lung cancer Qualifiers: Laterality: right Lung location: unspecified part of lung Qualified Code(s) : C34.91 - Malignant neoplasm of unspecified part of right bronchus or lung (2) Abdominal pain Qualifiers: Abdominal location: right lower quadrant Qualified Code(s): R10.31 - Right lower quadrant pain (3) Altered mental status Qualifiers: Altered mental status type: disorientation Qualified Code(s): R41.0 - Disorientation, unspecified (5) Malnutrition Qualifiers: Malnutrition type: protein-calorie malnutrition Protein-calorie malnutrition severity: moderate Qualified Code(s): E44.0 - Moderate protein-calorie malnutrition (6) Acute cystitis Qualifiers: Hematuria presence: without hematuria Qualified Code(s): N30.00 - Acute cystitis without hematuria
[2018-08-08] MEDS: MetroNIDAZOLE 500 MG/100 ML 500 MG/100 ML BAG IVPB SCH (16:01)
[2018-08-08] MEDS ORDERED: Potassium Chloride Elixir 20 MEQ/15 ML UDC PO ONE (16:49)
--- NOTE | 2018-08-08 17:57 | Electrocardiograph Report ---
[place] [id number] Test Date: 2018-08-06 Pat Name: Alaina Dan Department: EXAM9 Room: 2A63 Gender: F Gym Attendant: : 1950 Requested By: Cj Acuna Order Number: [id number] Reading MD: Elfego Mandujano Measurements Intervals [place] Rate: 87 P: 86 MA: 141 QRS: 53 QRSD: 115 T: 100 QT: 399 QTc: 480 Interpretive Statements Sinus rhythm Nonspecific ST-T changes Electronically Signed On 08-08-2018 17:55:18 EDT by Elfego Mandujano
[2018-08-09] MEDS: MetroNIDAZOLE 500 MG/100 ML 500 MG/100 ML BAG IVPB SCH ×3 (00:31→17:26)
[2018-08-09] MEDS: *HR* FentaNYL (PF) 100 MCG/2 ML VIAL IVP PRN ×2 (03:55→18:24)
--- NOTE | 2018-08-09 06:44 | General Surgery Progress Note ---
<Ingris Romero - Last Filed: 08/09/18 06:42> Date of Encounter: 08/09/18 Time of Encounter: 06:42 - Assessment and Plan (1) Abdominal pain Current Visit: Yes Status: Chronic Likely due to both colitis and cystitis - advance diet from clears per primary team - continue supportive care and pain management - continue IVF - continue to treat medically with IV Rocephin - no surgical intervention General surgery will sign off at this time, please feel free to call us with any questions Qualifiers: Abdominal location: right lower quadrant Qualified Code(s): R10.31 - Right lower quadrant pain Subjective Patient reports: pain is less, tolerating liquids well (clears with out nausea) , bowel movement, afebrile Objective Vital Signs - Last 8 Hours Temp Pulse Resp BP Pulse Ox 08/09/18 04:31 97.8 F 87 17 134/68 100 08/09/18 00:19 98.3 F 97 17 148/68 99 Intake and Output 08/08/18 08/08/18 08/09/18 15:59 23:59 07:59 Intake Total 120 / 120 100 / 100 Balance 120 / 120 100 / 100 Intake: IV Fluids 100 / 100 Flagyl Premix 500 MG/100 ML 500 100 / 100 mg In 100 ml @ 100 mls/hr IVPB Q8HR [facility] Rx#:[id number] Oral 120 / 120 Other: Meal Lunch Percent of Meal Consumed 75% Stool Size Moderate # Urine Diapers 1 # Bowel Movement Diapers 1 Weight 72.6 kg Blood Glucose* 181 219 Patient Weight 08/09/18 23:59 Weight 72.6 kg - General physical appearance well developed, well nourished, no distress - ENT normal pinna, normal nares, normal mucosa - Respiratory normal expansion, normal respiratory effort, clear to auscultation - Cardiovascular Cardiovascular exam: Present: RRR, no murmurs/rubs/gallops - Abdomen Abdomen: Present: bowel sounds present (decreased), soft, tender Abdominal Tenderness: epigastic, suprapubic (worse than epigastric) Hernia: none - Integumentary no rash, no growths, no abnormal pigmentation - Neurologic CN 2-12 grossly intact, normal coordination, normal sensation - Psychiatric oriented to person, oriented to place, speech is normal, other (less confused than yesterday) - Labs 08/08/18 05:05 08/08/18 05:05 Consult Discharge Plan - Plan Referrals: Bartolo Washburn MD [Primary Care Provider] - <Mane Dennis - Last Filed: 08/09/18 06:48> Date of Encounter: 08/09/18 - Assessment and Plan (1) Abdominal pain Current Visit: Yes Status: Chronic Qualifiers: Abdominal location: right lower quadrant Qualified Code(s): R10.31 - Right lower quadrant pain Objective Vital Signs - Last 8 Hours Temp Pulse Resp BP Pulse Ox 08/09/18 04:31 97.8 F 87 17 134/68 100 08/09/18 00:19 98.3 F 97 17 148/68 99 Intake and Output 08/08/18 08/08/18 08/09/18 15:59 23:59 07:59 Intake Total 120 / 120 100 / 100 Balance 120 / 120 100 / 100 Intake: IV Fluids 100 / 100 Flagyl Premix 500 MG/100 ML 500 100 / 100 mg In 100 ml @ 100 mls/hr IVPB Q8HR [id number] Rx#:[id number] Oral 120 / 120 Other: Meal Lunch Percent of Meal Consumed 75% Stool Size Moderate # Urine Diapers 1 # Bowel Movement Diapers 1 Weight 72.6 kg Blood Glucose* 181 219 Patient Weight 08/09/18 23:59 Weight 72.6 kg - Labs 08/08/18 05:05 08/08/18 05:05 - Attending Attestation Patient seen and examined. I have reviewed all labs, imaging, and notes. I agree with the above assessment and plan and wish to add the following... Please have patient follow up with me in my clinic 2 weeks after discharge to plan for colonoscopy.
[2018-08-09] MEDS ORDERED: 0.9 % Sodium Chloride 250 ML IVC PRN (06:45)
[2018-08-09] MEDS ORDERED: 0.9 % Sodium Chloride 1,000 ML ONE (07:27)
[2018-08-09] MEDS ORDERED: D5% in Water 1,000 ML IVC PRN (07:46)
[2018-08-09] MEDS ORDERED: Dextrose Gel 15 GM/37.5 ML TUBE PO PRN ×2 (07:46)
[2018-08-09] MEDS ORDERED: *HR* Dextrose 50 % in Water (Syg) 50 ML SYRINGE IVP PRN (07:46)
[2018-08-09] MEDS: cefTRIAXone 1,000 MG in Water for inj. (sterile) 20 ML 10 ML IVP SCH (07:53)
[2018-08-09] MEDS: WATER IVPB SCH (07:56)
[2018-08-09] MEDS: THIAMINE IVPB SCH (07:56)
[2018-08-09] MEDS: D5 IVPB SCH (07:56)
[2018-08-09 08:25] LABS: Calcium 7.9 mg/dL (8.6-10.3); Phosphorous 5.3 mg/dL (2.7-4.5); Potassium 3.8 mEq/L (3.5-5.1)
[2018-08-09 09:13] LABS: Basophils # 0.1 K/mcL (0.0-0.2); Basophils % 0.9 %; Eosinophils # 0.3 K/mcL (0.0-0.6); Eosinophils % 4.9 %; Hematocrit 27.4 % (35.3-44.9); Hemoglobin 8.8 g/dL (11.5-15.4); Immature Granulocytes % 0.6 % (0-4); Lymphocytes # 1.7 K/mcL (0.6-4.6); Lymphocytes % 25.3 %; Mean Corpuscular HGB Conc 32.1 g/dL (31.6-35.5); Mean Corpuscular Volume 96.5 fL (83.0-100.0); Mean Platelet Volume 10.3 fL (9.4-12.4); Monocytes % 14.9 %; Neutrophils # 3.5 K/mcL (1.6-8.9); Platelet Count 263 K/mcL (140-400); Red Blood Count 2.84 M/mcL (3.82-4.97); Red Cell Distribution Width 13.3 % (11.5-14.5); Segmented Neutrophils % 53.4 %
--- NOTE | 2018-08-09 09:48 | Nephrology Progress Note ---
Date of Encounter: 08/09/18 Time of Encounter: 09:46 - Assessment and Plan (1) ESRD (end stage renal disease) on dialysis Current Visit: Yes Status: Chronic ESRD on HD MWF HD in progress today. Renal diet, when able to eat. Avoid nephrotoxins and renal dose. (2) Altered mental status Current Visit: Yes Status: Acute Appears resolving. Per primary. Qualifiers: Altered mental status type: disorientation Qualified Code(s): R41.0 - Disorientation, unspecified (3) Hypophosphatemia Current Visit: Yes Status: Acute Phos is 5.3, resolved. (4) Abdominal pain Current Visit: Yes Status: Acute Surgery has s/o, no intervention. Diet advanced per primary. Continue renal binders after appetite appears to be back to normal. Qualifiers: Qualified Code(s): R10.9 - Unspecified abdominal pain Subjective Principal diagnosis: Altered Mental Status Interval history: Pt seen and examined, during HD. Admits she is overall feeling better today. Denies n/v/d. Admits to abdominal pain. Objective - Vital Signs Vital signs: Vital Signs Temp Pulse Resp BP Pulse Ox 08/09/18 08:32 98.4 F 89 14 158/70 100 08/09/18 04:31 97.8 F 87 17 134/68 100 08/09/18 00:19 98.3 F 97 17 148/68 99 08/08/18 20:03 98.0 F 77 17 140/72 94 08/08/18 15:17 98.2 F 72 16 98/62 97 08/08/18 11:22 97.9 F 67 16 152/71 100 Intake and Output 08/08/18 08/09/18 08/09/18 23:59 07:59 15:59 Intake Total 100 / 100 100 / 100 0 / 0 Output Total 0 / 0 Balance 100 / 100 100 / 100 0 / 0 Intake: IV Fluids 100 / 100 100 / 100 Flagyl Premix 500 MG/100 ML 500 100 / 100 100 / 100 mg In 100 ml @ 100 mls/hr IVPB Q8HR [facility] Rx#:[id number] Oral 0 / 0 Output: Urine 0 / 0 Other: Weight 72.6 kg Blood Glucose* 219 175 Patient Weight 08/09/18 23:59 Weight 72.6 kg - General Appearance General appearance: Present: chronically ill, fatigue, frail EENT: Present: ATNC Neck: Present: supple Respiratory: Present: clear Cardiology: Present: normal S1, normal S2 Dialysis Vascular Access: Arteriovenous Fistula thrill: Yes bruit: Yes Gastrointestinal: Present: normoactive bowel sounds, tenderness, guarding Integumentary: Present: no rash, warm and dry Neurologic: Present: alert and oriented x3 Psychiatric: Present: mood/affect appropriate, cooperative - Lab 08/09/18 07:30 08/09/18 07:30 Most recent lab results Calcium 7.9 mg/dL (8.6-10.3) L 08/09/18 07:30 Phosphorus 5.3 mg/dL (2.7-4.5) H 08/09/18 07:30 Magnesium 2.0 mg/dL (1.6-2.6) 08/09/18 07:30 Consult Discharge Plan - Plan Referrals: Bartolo Washburn MD [Primary Care Provider] -
--- NOTE | 2018-08-09 11:08 | Gastroenterology Consult Note ---
<Marya Marti - Last Filed: 08/09/18 13:44> Date of Encounter: 08/09/18 Time of Encounter: 10:45 - Assessment and plan (1) Abdominal pain Status: Chronic Assessment and plan: 67yo F recently admitted and treated for ischemic colitis due to low BP. She has continued right upper quadrant and left lower quadrant. This may be from colitis but also consider gastritis, gastric ulcer. afebrile, WBC 7.2 Hepatic panel, lactic acid unremarkable 08/01/2018 colonoscopy: poor prep with stool throughout the colon. Mucosal ulceration. Recommend to repeat in 2-3 months 07/05/2017 EGD: small hiatal hernia, gastritis Abdomen CT demonstrated colitis plan: -EGD today, NPO -Continue home protonix -continue cipro and flagyl Qualifiers: Abdominal location: right lower quadrant Qualified Code(s): R10.31 - Right lower quadrant pain (2) Ischemic colitis Status: Acute Assessment and plan: Recently admitted and treated for ischemic colitis taking antibiotics Flagyl and Rocephin. (3) Anemia Status: Chronic Assessment and plan: Anemia of chronic disease in setting of ESRD Hgb 8.9 (baseline 10) MCV 96.9 Denies melena, hematachezia no obvious active bleeding -monitor H&H Qualifiers: Anemia type: due to chronic kidney disease Chronic kidney disease stage: on chronic dialysis Qualified Code(s): N18.6 - End stage renal disease; D63.1 - Anemia in chronic kidney disease; Z99.2 - Dependence on renal dialysis (4) GERD (gastroesophageal reflux disease) Status: Chronic Assessment and plan: chronic GERD taking protonix. -continue protonix Qualifiers: Esophagitis presence: esophagitis presence not specified Qualified Code(s): K21.9 - Gastro-esophageal reflux disease without esophagitis - Time Spent With Patient Total time spent is greater than 50% in coordination of care (as documented) at patient's floor/unit and/or counseling patient: GI History of Present Illness - Data of Consult Consult date: 08/08/18 Requesting Physician: Raman Seay MD - Consult Narrative Reason for consult: abdominal pain and hx of ischemic colitis History of present illness: Ms. Dan is a 67 year old female with PMH ESRD on dialysis, HTN, GERD, CAD who presented to [facility] from [facility] due to change in mental status. GI was consulted due to abdominal pain and recent ischemic colitis. Upon examination of the patient she reported that she has had continued abdominal pain since her last admission a week ago for ischemic colitis. She had a colonoscopy 08/01/2018 that demonstrated: poor prep with stool throughout the colon. Mucosal ulceration. Recommend to repeat in 2-3 months. She was taking cipro and flagyl. Her abdominal pain is localized in right upper and left lower quadrants. She has had a cholecystectomy. She denies fever, chills, nausea, vomiting, melena, hemata chezia, shortness of breathe. 07/05/2017 EGD: small hiatal hernia, gastritis. Colonoscopy: 08/01/2018 EGD: 07/05/2017 Past Med Surg Social Fam HX - Past Medical History Attestation: Yes The following information was validated with the patient. Source: patient Medical history: arthritis, cancer, coronary artery disease, diabetes, dialysis, GERD, hyperlipidemia, hypertension, myocardial infarction, renal disease, other Additional medical history: neuropathy, insomnia Psychiatric history: anxiety, depression - Past Surgical History Surgical History: appendectomy, cholecystectomy, coronary bypass (CABG), hysterectomy, ureteral stent, other Additional surgical history: colonoscopy - egd - tubal ligation - kidney stent - Social History Smoking Status: Former smoker Smokeless Tobacco Status: No Alcohol use: none Drug use: none - Family History Brother Hx Family Cardiac Disorders: Yes (CAD) Hx Family Cancer: Yes (lung cancer) Father Adopted: No Hx Family Cardiac Disorders: Yes ("heart troubles") Hx Family Cancer: Yes (Prostate cancer) Hx Family Endocrine Disorder: Yes (DM) Mother Living Status: Hx Family Endocrine Disorder: (DM) - Gastrointestinal Gastrointestinal: Present: abdominal pain. Absent: diarrhea, hematochezia, melena, nausea, vomiting - Constitutional Constitutional: fatigue, no fever(s) - EENT Nose, mouth and throat: Absent: dysphagia - Cardiovascular Cardiovascular ROS: Absent: chest pain, palpitations - Respiratory Respiratory IM: Absent: cough, dyspnea - Genitourinary Genitourinary: Absent: change in color - Neurological ROS Neurological GI: Present: confusion. Absent: dizziness, weakness - Musculoskeletal Musculoskeletal ROS GI: Absent: back pain, joint swelling - Integumentary Integumentary GI: Absent: jaundice, pruritis, rash - Endocrine Endocrine IM: Present: fatigue - Constitutional Vitals: Temp Pulse Resp BP Pulse Ox 97.9 F 89 18 179/70 100 08/09/18 09:35 08/09/18 08:32 08/09/18 09:35 08/09/18 10:35 08/09/18 08:32 Exam: Gen.: Vitals noted. No acute distress. AAOx3 HEENT: oropharynx clear, Normocephalic, atraumatic Neck: Supple. No adenopathy. Cardiac: RRR, no murmur, +S1/S2 Pulmonary: CTA bilaterally, no wheezes, rales or rhonchi, equal chest expansion Abdomen: soft, tender in RUQ and LLQ, Bowel sounds noted, no guarding MSK: no joint swelling noted Extremities: no BLE edema, nontender calf, no cyanosis or clubbing Neuro: A&Ox3, moves all extremities, no focal deficits Psych: Appropriate mood and behavior Results - Labs CBC & Chem 7: 08/09/18 07:30 08/09/18 07:30 Labs: Last Result Calcium 7.9 mg/dL (8.6-10.3) L 08/09/18 07:30 Troponin I < 0.03 ng/mL (< 0.04) 08/07/18 16:33 Entire Visit Hgb 8.8 g/dL (11.5-15.4) L 08/09/18 07:30 Hct 27.4 % (35.3-44.9) L 08/09/18 07:30 PT 14.1 Seconds (9.4-12.1) H 08/06/18 12:13 Total Bilirubin 0.6 mg/dL (0.3-1.0) 08/07/18 13:44 AST 30 Units/L (13-39) 08/07/18 13:44 ALT 12 Units/L (7-52) 08/07/18 13:44 - ABG ABG results: PT/INR, D-dimer PT 14.1 Seconds (9.4-12.1) H 08/06/18 12:13 Consult Discharge Plan - Plan Referrals: Jared Dee MD [Partnered Physician] - (Web request completed 08/10/2018) Bartolo Washburn MD [Primary Care Provider] - (Patient is going to [facility]) Prescriptions: RX: Ciprofloxacin [Cipro] 250 mg PO BID 14 Days #14 tablet RX: Fluconazole [Diflucan] 200 mg PO QPM 4 Days #4 tablet RX: metroNIDAZOLE [Flagyl] 500 mg PO TID 14 Days #42 tablet RX: OxyCODONE/APAP 5/325 [Percocet 5/325 MG] 1 tab PO TID PRN 3 Days #9 tablet PRN Reason: Pain <Luiz,Jared - Last Filed: 08/20/18 22:02> - Time Spent With Patient Total time spent is greater than 50% in coordination of care (as documented) at patient's floor/unit and/or counseling patient: GI History of Present Illness - Data of Consult Requesting Physician: Krishna Cabral MD - Consult Narrative History of present illness: Ms. Dan is a 67 year old female - Constitutional Vitals: Temp Pulse Resp BP Pulse Ox 97.8 F 95 16 151/79 95 08/12/18 07:49 08/12/18 07:49 08/12/18 07:49 08/12/18 07:49 08/12/18 07:49 Results - Labs CBC & Chem 7: 08/11/18 07:20 08/12/18 05:50 Labs: Last Result Calcium 9.0 mg/dL (8.6-10.3) 08/12/18 05:50 Troponin I < 0.03 ng/mL (< 0.04) 08/07/18 16:33 Entire Visit Hgb 8.9 g/dL (11.5-15.4) L 08/11/18 07:20 Hct 27.4 % (35.3-44.9) L 08/11/18 07:20 PT 14.1 Seconds (9.4-12.1) H 08/06/18 12:13 Total Bilirubin 0.6 mg/dL (0.3-1.0) 08/07/18 13:44 AST 30 Units/L (13-39) 08/07/18 13:44 ALT 12 Units/L (7-52) 08/07/18 13:44 - ABG ABG results: PT/INR, D-dimer PT 14.1 Seconds (9.4-12.1) H 08/06/18 12:13 - Attending Attestation Patient interviewed and examined.. Recent ischemic colitis. Patient complained of severe epigastric pain. Plan EGD. I examined this patient and my medical decision-making was reviewed with the Resident Physician. I agree with the documented findings, disposition and treatment plan as described except to the extent set forth below.
[2018-08-09] MEDS: Insulin LISPRO 300 UNITS/3 ML VIAL SQ SCH ×3 (11:31→21:24)
--- NOTE | 2018-08-09 12:57 | Internal Med Progress Note ---
Hospitalist Progress Note - Encounter Date of Encounter: 08/09/18 Time of Encounter: 09:00 - Subjective Interval History: Pt is awake, alert, oriented x 3. Still mild RLQ abd pain. Denies N/V/D - Exam Vitals: Temp Pulse Resp BP Pulse Ox 97.9 F 89 18 166/81 100 08/09/18 09:35 08/09/18 08:32 08/09/18 09:35 08/09/18 12:20 08/09/18 08:32 Exam: General appearance: Present: A&O X 0, cooperative, no acute distress Exam: as above - Head Head exam: Present: atraumatic, normocephalic - Eye Eye exam: Present: conjuntiva pink, sclera anicteric - Neck Neck exam general surgery: Present: supple, trachea midline. Absent: lymphadenopathy - Respiratory Respiratory exam: Present: CTAB. Absent: accessory muscle use, rales, rhonchi, wheezes - Cardiovascular Cardiovascular exam: Present: RRR, +S1, +S2. Absent: diastolic murmur, gallop, rubs, systolic murmur - GI/Abdominal GI/Abdominal exam: Present: Tender RUQ with palpation, normal bowel sounds, soft , no peritoneal signs. Non-distended - Extremities Exam Extremities exam: Present: warm. Absent: calf tenderness, cyanotic, pedal edema - Neurological Exam Neurological exam: Present: CN II-XII intact, oriented X3, no focal deficits. Absent: pronater drift, facial droop, speech deficit - Skin Skin exam: Present: dry, intact - Assessment and Plan (1) Lung cancer Current Visit: No Status: Chronic Assessment and Plan: squamous cell carcinoma per biopsy. Cont f/u oncology as outpatient. (2) Abdominal pain Current Visit: Yes Status: Chronic Assessment and Plan: Improved. CT abd shows cystitis/colitis. Cont UTI treatment. GI consult saw pt, plan for EGD, cont rocephin and flagyl. (3) Altered mental status Current Visit: Yes Status: Acute Assessment and Plan: likely due to metabolic encephalopathy. Improved now. AAO x3 today. Code(s): R41.82 - Altered mental status, unspecified SNOMED Code(s): 620057187 (4) Hypophosphatemia Current Visit: Yes Status: Acute Assessment and Plan: corrected. Cont closely f/u. (5) Malnutrition Current Visit: Yes Status: Acute Assessment and Plan: Consult customer retention representative. (6) Acute cystitis Current Visit: Yes Status: Acute Assessment and Plan: Has been on Rocephin. No signs of pyelonephritis. (7) Ischemic colitis Current Visit: Yes Status: Acute Assessment and Plan: Recent diagnosis of severe ischemic colitis. Cont rocephin, added flagyl. GI consult. DVT Prophylaxis: SCD - Time Spent with Patient Total time spent is greater than 50% in coordination of care (as documented) at patient's floor/unit and/or counseling patient: 25 - 35 minutes Plan of Care Discussed with: patient Internal Medicine: Result - Labs CBC & Chem 7: 08/09/18 07:30 08/09/18 07:30 Labs: Short CBC 08/09/18 Range/Units 07:30 WBC 6.6 (4.3-11.1) K/mcL Hgb 8.8 L (11.5-15.4) g/dL Hct 27.4 L (35.3-44.9) % Plt Count 263 (140-400) K/mcL Neutrophils # 3.5 (1.6-8.9) K/mcL BMP 08/09/18 07:30 Sodium 136 Potassium 3.8 Chloride 100 Carbon Dioxide 29 BUN 18 Creatinine 3.78 H Glucose 132 H Calcium 7.9 L - ABG Interpretation ABG results: PT/INR, D-dimer PT 14.1 Seconds (9.4-12.1) H 08/06/18 12:13 Consult Discharge Plan - Plan Referrals: Bartolo Washburn MD [Primary Care Provider] - (1) Lung cancer Qualifiers: Laterality: right Lung location: unspecified part of lung Qualified Code(s) : C34.91 - Malignant neoplasm of unspecified part of right bronchus or lung (2) Abdominal pain Qualifiers: Abdominal location: right lower quadrant Qualified Code(s): R10.31 - Right lower quadrant pain (3) Altered mental status Qualifiers: Altered mental status type: disorientation Qualified Code(s): R41.0 - Disorientation, unspecified (5) Malnutrition Qualifiers: Malnutrition type: protein-calorie malnutrition Protein-calorie malnutrition severity: moderate Qualified Code(s): E44.0 - Moderate protein-calorie malnutrition (6) Acute cystitis Qualifiers: Hematuria presence: without hematuria Qualified Code(s): N30.00 - Acute cystitis without hematuria
[2018-08-09] MEDS ORDERED: *HR* Propofol 200 MG/20 ML VIAL IVP ONE (13:03)
--- NOTE | 2018-08-09 13:54 | Anesthesia Evaluation PreOp ---
Date of Encounter: 08/09/18 Time of Encounter: 14:04 - Past History Planned Operation: EGD Cardiac History: HTN, Hyperlipidemia, Cardiac Surgery (CABG 1999) Pulmonary History: COPD, JEFF Dx, Other (CA LUNG, POST XRT) Other Medical History: Renal (ESRD, HD, LAST HD THIS AM, NEPHRECTOMY), Diabetes Type II, Thyroid, Other (ANEMIA, ISCHEMIC COLITIS) Anesthesia History: No Prior Anesthetic Complications, Past Anesthesia (SEVERAL) Alcohol Use: none Drug use: none Medications and Allergies Folic Acid 1 mg PO DAILY 07/10/15 [History] Levothyroxine [Synthroid] 50 mcg PO QAM 07/10/15 [History] Pantoprazole Sodium [Protonix] 40 mg PO BID 07/10/15 [History] Solifenacin Succinate [Vesicare] 10 mg PO DAILY 07/10/15 [History] Aspirin 81 mg PO DAILY #30 tab.chew 02/18/16 [Rx] Metoprolol XL (24 HR) Succ [Toprol Xl] 12.5 mg PO DAILY #30 tab.er.24h 02/18/16 [Rx] Docusate [Colace] 100 mg PO BID 10/14/16 [History] Albuterol Sulfate [Proair Hfa] 2 puff IH Q4H PRN 03/17/17 [History] Atorvastatin [Lipitor] 40 mg PO HS 03/17/17 [History] Clopidogrel [Plavix] 75 mg PO DAILY 05/09/17 [History] Ondansetron ODT [Zofran ODT] 4 mg PO Q8H PRN 05/09/17 [History] Sucralfate [Carafate] 1 gm PO 0730,1630 05/09/17 [History] Folic Acid/Vit Bcomp,C [Renal-Elizabeth Tablet] 0.8 mg PO DAILY 03/01/18 [History] Furosemide [Lasix] 20 mg PO DAILY 03/01/18 [History] Amitriptyline [Elavil] 25 mg PO HS 03/26/18 [History] DULoxetine [Cymbalta] 30 mg PO Q48H 03/26/18 [History] Ergocalciferol (VITAMIN D2) [Drisdol] 50,000 unit PO MO 03/26/18 [History] Insulin ASPART [NovoLOG] 2 - 8 unit SQ TID 03/26/18 [History] Insulin DETEMIR [Levemir] 12 unit SQ QAM 03/26/18 [History] Tamsulosin [Flomax] 0.4 mg PO DAILY 03/26/18 [History] Zolpidem [Ambien] 5 mg PO HS 03/26/18 [History] Lactobacillus Combination No.8 [Adult Probiotic] 1 cap PO DAILY 05/04/18 [ History] Pramipexole Di-HCl [Pramipexole Dihydrochloride] 0.125 mg PO HS 05/04/18 [ History] Promethazine [Phenergan] 25 mg PO TID PRN 05/04/18 [History] Psyllium Husk [Daily Fiber] 0.52 gm PO DAILY 05/04/18 [History] SUMAtriptan Succinate [Imitrex] 6 mg SQ BID PRN 05/04/18 [History] OxyCODONE/APAP 5/325 [Percocet 5/325 MG] 1 tab PO TID PRN 3 Days #9 tablet 07/30 [Rx] Baclofen [Lioresal] 10 mg PO TID PRN 07/31/18 [History] Lisinopril [Zestril] 20 mg PO DAILY 07/31/18 [History] Mirtazapine [Remeron] 15 mg PO HS 07/31/18 [History] Ciprofloxacin [Cipro] 500 mg PO Q24H 10 Days #10 tablet 08/04/18 [Rx] metroNIDAZOLE [Flagyl] 500 mg PO TID 10 Days #30 tablet 08/04/18 [Rx] Insulin DETEMIR [Levemir Flextouch] 14 unit SQ QPM 08/06/18 [History] 3 Allergy/AdvReac Type Severity Reaction Status Date / Time adhesive tape Allergy Redness of Verified 07/15/18 11:57 Skin latex Allergy Swelling Verified 07/15/18 11:57 of Lip/Tongue/Throat Sulfa (Sulfonamide Allergy Rash Verified 07/15/18 11:57 Antibiotics) - Meds/Allergy Pre-op Review Medications Reviewed: Yes Allergies Reviewed: Yes Anesthesia Results - Labs 08/09/18 07:30 08/09/18 07:30 Laboratory Last Values WBC 6.6 K/mcL (4.3-11.1) 08/09/18 07:30 RBC 2.84 M/mcL (3.82-4.97) L 08/09/18 07:30 Hgb 8.8 g/dL (11.5-15.4) L 08/09/18 07:30 Hct 27.4 % (35.3-44.9) L 08/09/18 07:30 MCV 96.5 fL (83.0-100.0) 08/09/18 07:30 MCH 31.0 pg (28.0-33.3) 08/09/18 07:30 MCHC 32.1 g/dL (31.6-35.5) 08/09/18 07:30 RDW 13.3 % (11.5-14.5) 08/09/18 07:30 Plt Count 263 K/mcL (140-400) 08/09/18 07:30 MPV 10.3 fL (9.4-12.4) 08/09/18 07:30 Immature Gran % 0.6 % (0-4) 08/09/18 07:30 Seg Neutrophils % 53.4 % 08/09/18 07:30 Lymphocytes % 25.3 % 08/09/18 07:30 Monocytes % 14.9 % 08/09/18 07:30 Eosinophils % 4.9 % 08/09/18 07:30 Basophils % 0.9 % 08/09/18 07:30 Neutrophils # 3.5 K/mcL (1.6-8.9) 08/09/18 07:30 Lymphocytes # 1.7 K/mcL (0.6-4.6) 08/09/18 07:30 Monocytes # 1.0 K/mcL (0.0-1.3) 08/09/18 07:30 Eosinophils # 0.3 K/mcL (0.0-0.6) 08/09/18 07:30 Basophils # 0.1 K/mcL (0.0-0.2) 08/09/18 07:30 PT 14.1 Seconds (9.4-12.1) H 08/06/18 12:13 INR 1.3 08/06/18 12:13 Sodium 136 mEq/L (136-145) 08/09/18 07:30 Potassium 3.8 mEq/L (3.5-5.1) 08/09/18 07:30 Chloride 100 mEq/L (98-107) 08/09/18 07:30 Carbon Dioxide 29 mEq/L (23-29) 08/09/18 07:30 BUN 18 mg/dL (8-23) 08/09/18 07:30 Creatinine 3.78 mg/dL (0.60-1.20) H 08/09/18 07:30 Est GFR ( Amer) 14 (> 60) L 08/09/18 07:30 Est GFR (Non-Af Amer) 12 (> 60) L 08/09/18 07:30 BUN/Creatinine Ratio 5 (6-26) L 08/09/18 07:30 Glucose 132 mg/dL (70-105) H 08/09/18 07:30 POC Glucose 175 mg/dL (70-99) H 08/09/18 08:32 Calculated Osmolality 286 (280-300) 08/09/18 07:30 Lactic Acid 1.7 mmol/L (0.5-2.2) 08/07/18 16:33 Calcium 7.9 mg/dL (8.6-10.3) L 08/09/18 07:30 Phosphorus 5.3 mg/dL (2.7-4.5) H 08/09/18 07:30 Magnesium 2.0 mg/dL (1.6-2.6) 08/09/18 07:30 Total Bilirubin 0.6 mg/dL (0.3-1.0) 08/07/18 13:44 Direct Bilirubin 0.1 mg/dL (0.0-0.2) 08/07/18 13:44 Indirect Bilirubin 0.5 mg/dL (0.0-1.2) 08/07/18 13:44 AST 30 Units/L (13-39) 08/07/18 13:44 ALT 12 Units/L (7-52) 08/07/18 13:44 Alkaline Phosphatase 106 Units/L (34-104) H 08/07/18 13:44 Troponin I < 0.03 ng/mL (< 0.04) 08/07/18 16:33 Serum Total Protein 7.4 g/dL (6.4-8.9) 08/07/18 13:44 Albumin 3.3 g/dL (3.5-5.7) L 08/07/18 13:44 Globulin 4.1 g/dL (2.4-3.5) H 08/07/18 13:44 Albumin/Globulin Ratio 0.8 (1.1-2.2) L 08/07/18 13:44 Urine Color Yellow (Yellow) 08/06/18 11:50 Urine Clarity Cloudy (Clear) A 08/06/18 11:50 Urine pH 8.0 pH Units (5.0-8.0) 08/06/18 11:50 Ur Specific Cleghorn < 1.005 (1.010-1.025) L 08/06/18 11:50 Urine Protein >=300 mg/dL (Neg-Trace) H 08/06/18 11:50 Urine Glucose (UA) 100 mg/dL (Normal) H 08/06/18 11:50 Urine Ketones Negative mg/dL (Negative) 08/06/18 11:50 Urine Blood Moderate (Negative) H 08/06/18 11:50 Urine Nitrite Negative (Negative) 08/06/18 11:50 Urine Bilirubin Negative (Negative) 08/06/18 11:50 Urine Urobilinogen Normal mg/dL (Normal) 08/06/18 11:50 Ur Leukocyte Esterase Large (Negative) H 08/06/18 11:50 Urine Microscopic RBC 5-15 per hpf (0-3) H 08/06/18 11:50 Urine Microscopic WBC TNTC per hpf (0-3) H 08/06/18 11:50 Ur Squamous Epith Cells Many per lpf (None-Few) H 08/06/18 11:50 Urine Bacteria None Seen per hpf (None-Few) 08/06/18 11:50 Urine Yeast Few per hpf (None Seen) H 08/06/18 11:50 Ur Culture Indicated? NO. (NO) A 08/06/18 11:50 Specimen Rejected Clotted 08/07/18 16:33 Anesthesia Exam Vital Signs/O2 Sat, Most Current Temp Pulse Resp BP Pulse Ox 98 F 86 16 158/90 97 08/09/18 13:43 08/09/18 13:43 08/09/18 13:43 08/09/18 13:43 08/09/18 13:43 HEIGHT 1.65 m WEIGHT 73 kg BMI 27 NPO (# of Hours): 6 - HEENT Mallampati: II Teeth: Edentulous Oral Opening: Greater than 3 - Cardiac Rhythm: Regular - Pulmonary Breath Sounds: bilateral Clear Respiratory Effort: Symmetrical Anesthesia Assess/Plan ASA Score: 4 Modified Olivia Scale for Level of Consciousness: Cooperative, oriented, and tranquil Anesthetic Plan: MAC Monitoring Plan: Standard Monitors Recovery Plan: Other Anes Supervising Prov Stmt: Patient informed and consented. Risks, benefits, and alternatives discussed. Patient wishes to proceed.
--- NOTE | 2018-08-09 13:59 | Anesthesia Evaluation PreOp ---
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 (resolving metabolic encephalopathy (admitted for 08/06)) Other Medical History: Renal (ESRD TID dialysis (today)) Anesthesia History: No Prior Anesthetic Complications, Past Anesthesia (endo 3 days ago,) Alcohol Use: none Drug use: none Medications and Allergies Folic Acid 1 mg PO DAILY 07/10/15 [History] Levothyroxine [Synthroid] 50 mcg PO QAM 07/10/15 [History] Pantoprazole Sodium [Protonix] 40 mg PO BID 07/10/15 [History] Solifenacin Succinate [Vesicare] 10 mg PO DAILY 07/10/15 [History] Aspirin 81 mg PO DAILY #30 tab.chew 02/18/16 [Rx] Metoprolol XL (24 HR) Succ [Toprol Xl] 12.5 mg PO DAILY #30 tab.er.24h 02/18/16 [Rx] Docusate [Colace] 100 mg PO BID 10/14/16 [History] Albuterol Sulfate [Proair Hfa] 2 puff IH Q4H PRN 03/17/17 [History] Atorvastatin [Lipitor] 40 mg PO HS 03/17/17 [History] Clopidogrel [Plavix] 75 mg PO DAILY 05/09/17 [History] Ondansetron ODT [Zofran ODT] 4 mg PO Q8H PRN 05/09/17 [History] Sucralfate [Carafate] 1 gm PO 0730,1630 05/09/17 [History] Folic Acid/Vit Bcomp,C [Renal-Elizabeth Tablet] 0.8 mg PO DAILY 03/01/18 [History] Furosemide [Lasix] 20 mg PO DAILY 03/01/18 [History] Amitriptyline [Elavil] 25 mg PO HS 03/26/18 [History] DULoxetine [Cymbalta] 30 mg PO Q48H 03/26/18 [History] Ergocalciferol (VITAMIN D2) [Drisdol] 50,000 unit PO MO 03/26/18 [History] Insulin ASPART [NovoLOG] 2 - 8 unit SQ TID 03/26/18 [History] Insulin DETEMIR [Levemir] 12 unit SQ QAM 03/26/18 [History] Tamsulosin [Flomax] 0.4 mg PO DAILY 03/26/18 [History] Zolpidem [Ambien] 5 mg PO HS 03/26/18 [History] Lactobacillus Combination No.8 [Adult Probiotic] 1 cap PO DAILY 05/04/18 [ History] Pramipexole Di-HCl [Pramipexole Dihydrochloride] 0.125 mg PO HS 05/04/18 [ History] Promethazine [Phenergan] 25 mg PO TID PRN 05/04/18 [History] Psyllium Husk [Daily Fiber] 0.52 gm PO DAILY 05/04/18 [History] SUMAtriptan Succinate [Imitrex] 6 mg SQ BID PRN 05/04/18 [History] OxyCODONE/APAP 5/325 [Percocet 5/325 MG] 1 tab PO TID PRN 3 Days #9 tablet 07/30 [Rx] Baclofen [Lioresal] 10 mg PO TID PRN 07/31/18 [History] Lisinopril [Zestril] 20 mg PO DAILY 07/31/18 [History] Mirtazapine [Remeron] 15 mg PO HS 07/31/18 [History] Ciprofloxacin [Cipro] 500 mg PO Q24H 10 Days #10 tablet 08/04/18 [Rx] metroNIDAZOLE [Flagyl] 500 mg PO TID 10 Days #30 tablet 08/04/18 [Rx] Insulin DETEMIR [Levemir Flextouch] 14 unit SQ QPM 08/06/18 [History] 3 Allergy/AdvReac Type Severity Reaction Status Date / Time adhesive tape Allergy Redness of Verified 07/15/18 11:57 Skin latex Allergy Swelling Verified 07/15/18 11:57 of Lip/Tongue/Throat Sulfa (Sulfonamide Allergy Rash Verified 07/15/18 11:57 Antibiotics) Anesthesia Results - Labs 08/09/18 07:30 08/09/18 07:30 Anesthesia Assess/Plan ASA Score: 3 Modified Olivia Scale for Level of Consciousness: Cooperative, oriented, and tranquil Anesthetic Plan: MAC Monitoring Plan: Standard Monitors Recovery Plan: PACU
--- NOTE | 2018-08-09 14:27 | Anesthesia Evaluation Post Op ---
Date of Encounter: 08/09/18 Time of Encounter: 14:27 - Vital Signs Vital Signs: vss - Airway Airway: Non-obstructed - Mental Status Mental Status: Asleep with brisk response to light stimulation - Pain Pain Scale used: Ollie (Faces) - Nausea Vomiting Nausea Vomiting: Not Present - Discharge PostOp Status: Transfer Patient to floor
[2018-08-09] MEDS ORDERED: Tetracaine/Benzocaine/Butamben 1 SPRAY AEROSOL ONE (15:01)
[2018-08-09 21:17] LABS: Hepatitis B Surface Antigen Nonreactive (Nonreactive)
[2018-08-09 21:31] LABS: Hepatitis B Surface Antibody 18.61 mIU/mL
[2018-08-10] MEDS: MetroNIDAZOLE 500 MG/100 ML 500 MG/100 ML BAG IVPB SCH ×2 (00:45→09:35)
[2018-08-10] MEDS: *HR* FentaNYL (PF) 100 MCG/2 ML VIAL IVP PRN ×4 (00:46→19:42)
[2018-08-10 04:40] LABS: Basophils # 0.1 K/mcL (0.0-0.2); Basophils % 0.8 %; Eosinophils # 0.3 K/mcL (0.0-0.6); Eosinophils % 4.7 %; Hemoglobin 9.4 g/dL (11.5-15.4); Immature Granulocytes % 0.6 % (0-4); Lymphocytes # 1.3 K/mcL (0.6-4.6); Lymphocytes % 17.9 %; Mean Corpuscular HGB Conc 32.4 g/dL (31.6-35.5); Mean Corpuscular Hemoglobin 30.9 pg (28.0-33.3); Mean Corpuscular Volume 95.4 fL (83.0-100.0); Monocytes # 0.8 K/mcL (0.0-1.3); Monocytes % 10.5 %; Neutrophils # 4.8 K/mcL (1.6-8.9); Platelet Count 263 K/mcL (140-400); Red Blood Count 3.04 M/mcL (3.82-4.97); Red Cell Distribution Width 13.1 % (11.5-14.5); Segmented Neutrophils % 65.5 %
[2018-08-10 05:03] LABS: Calcium 8.3 mg/dL (8.6-10.3); Potassium 3.7 mEq/L (3.5-5.1)
[2018-08-10] MEDS: D5 IVPB SCH (09:33)
[2018-08-10] MEDS: cefTRIAXone 1,000 MG in Water for inj. (sterile) 20 ML 10 ML IVP SCH (09:33)
[2018-08-10] MEDS: THIAMINE IVPB SCH (09:33)
[2018-08-10] MEDS: WATER IVPB SCH (09:33)
[2018-08-10] MEDS: Insulin LISPRO 300 UNITS/3 ML VIAL SQ SCH ×3 (09:35→17:04)
--- NOTE | 2018-08-10 09:58 | Nephrology Progress Note ---
Date of Encounter: 08/10/18 Time of Encounter: 09:55 - Assessment and Plan (1) ESRD (end stage renal disease) on dialysis Current Visit: Yes Status: Chronic ESRD on HD MWF HD completed yesterday. Renal diet, when able to eat. Avoid nephrotoxins and renal dose. (2) Altered mental status Current Visit: Yes Status: Acute Appears resolving. Per primary. Qualifiers: Altered mental status type: disorientation Qualified Code(s): R41.0 - Disorientation, unspecified (3) Hypophosphatemia Current Visit: Yes Status: Acute Resolved. (4) Abdominal pain Current Visit: Yes Status: Acute Surgery has s/o, no intervention. Diet advanced per primary. Continue renal binders after appetite appears to be back to normal. Qualifiers: Qualified Code(s): R10.9 - Unspecified abdominal pain Subjective Principal diagnosis: Altered Mental Status Interval history: Pt seen and examined, sitting up in the chair. Admits she is overall feeling better today. Denies n/v/d. Admits to abdominal pain. Objective - Vital Signs Vital signs: Vital Signs Temp Pulse Resp BP Pulse Ox 08/10/18 07:56 99.3 F 83 19 181/78 98 08/10/18 05:47 98.9 F 75 16 144/61 100 08/10/18 00:03 98.3 F 86 16 120/69 100 08/09/18 21:26 98.8 F 85 100 168/67 100 08/09/18 18:17 146/67 08/09/18 16:39 98.7 F 79 16 151/70 100 08/09/18 13:43 98 F 86 16 158/90 97 08/09/18 13:28 97.4 F L 18 175/76 08/09/18 12:50 178/82 08/09/18 12:35 178/82 08/09/18 12:20 166/81 08/09/18 12:05 166/74 08/09/18 11:50 138/45 08/09/18 11:35 135/52 08/09/18 11:20 144/75 08/09/18 11:05 164/76 08/09/18 10:50 167/68 08/09/18 10:35 179/70 08/09/18 10:20 168/75 08/09/18 10:05 181/71 Intake and Output 08/09/18 08/10/18 08/10/18 23:59 07:59 15:59 Intake Total 100 / 100 100 / 100 Balance 100 / 100 100 / 100 Intake: IV Fluids 100 / 100 100 / 100 Flagyl Premix 500 MG/100 ML 500 100 / 100 100 / 100 mg In 100 ml @ 100 mls/hr IVPB Q8HR [id number] Rx#:[id number] Other: Weight 71.9 kg Blood Glucose* 125 152 Patient Weight 08/10/18 23:59 Weight 71.9 kg - General Appearance General appearance: Present: well-developed, well-nourished EENT: Present: ATNC, hearing intact, vision intact Neck: Present: supple Respiratory: Present: clear Cardiology: Present: no edema, normal S1, normal S2 Dialysis Vascular Access: Arteriovenous Fistula thrill: Yes bruit: Yes Gastrointestinal: Present: normoactive bowel sounds, no tenderness, no guarding Integumentary: Present: no rash, warm and dry Neurologic: Present: alert and oriented x3 Psychiatric: Present: mood/affect appropriate, cooperative - Lab 08/10/18 04:20 08/10/18 04:20 Most recent lab results Calcium 8.3 mg/dL (8.6-10.3) L 08/10/18 04:20 Phosphorus 5.3 mg/dL (2.7-4.5) H 08/09/18 07:30 Magnesium 2.0 mg/dL (1.6-2.6) 08/09/18 07:30 Consult Discharge Plan - Plan Referrals: Bartolo Washburn MD [Primary Care Provider] -
--- NOTE | 2018-08-10 10:41 | Gastroenterology Progress Note ---
Date of Encounter: 08/10/18 Time of Encounter: 10:41 - Assessment and plan (1) Abdominal pain Current Visit: Yes Status: Chronic Assessment and plan: 67yo F recently admitted and treated for ischemic colitis due to low BP. She has continued right upper quadrant and left lower quadrant. This may be from colitis but also consider gastritis, gastric ulcer. afebrile, WBC 7.3 Hepatic panel, lactic acid unremarkable 08/01/2018 colonoscopy: poor prep with stool throughout the colon. Mucosal ulceration. Recommend to repeat in 2-3 months 07/05/2017 EGD: small hiatal hernia, gastritis Abdomen CT demonstrated colitis EGD 08/09/2018 demonstrated a single nonbleeding erosion at the gastroesophageal junction, mild Schatzki, 2 cm hiatal hernia, gastritis. Normal ampulla, 1st portion of the duodenum and 2nd portion of the duodenum. plan: -Patient can be discharged and follow up in the office in 2 weeks. Continue cipro and flagyl for completion of treatment of colitis. Will sign off. -Continue home protonix Qualifiers: Abdominal location: right lower quadrant Qualified Code(s): R10.31 - Right lower quadrant pain (2) Ischemic colitis Current Visit: Yes Status: Acute Assessment and plan: Recently admitted and treated for ischemic colitis taking antibiotics Flagyl and Rocephin. (3) Anemia Current Visit: No Status: Chronic Assessment and plan: Anemia of chronic disease in setting of ESRD Hgb 9.4 (baseline 10) stable Denies melena, hematachezia no obvious active bleeding -monitor H&H Qualifiers: Anemia type: due to chronic kidney disease Chronic kidney disease stage: on chronic dialysis Qualified Code(s): N18.6 - End stage renal disease; D63.1 - Anemia in chronic kidney disease; Z99.2 - Dependence on renal dialysis (4) GERD (gastroesophageal reflux disease) Current Visit: No Status: Chronic Assessment and plan: chronic GERD taking protonix. -continue protonix Qualifiers: Esophagitis presence: esophagitis presence not specified Qualified Code(s): K21.9 - Gastro-esophageal reflux disease without esophagitis - Time Spent With Patient Total time spent is greater than 50% in coordination of care (as documented) at patient's floor/unit and/or counseling patient: - Subjective Interval history: Patient was seen examined at bedside. She is alert and oriented times 3. She reports she still has some mild pain in the right upper quadrant however she feels improved from when she came in initially. She denies fever, chills, nausea, vomiting, melena, hematochezia, hematemesis. - Constitutional Vitals: Temp Pulse Resp BP Pulse Ox 99.3 F 83 19 181/78 98 08/10/18 07:56 08/10/18 07:56 08/10/18 07:56 08/10/18 07:56 08/10/18 07:56 Exam: Gen.: Vitals noted. No acute distress. AAOx3 HEENT: oropharynx clear, Normocephalic, atraumatic Neck: Supple. No adenopathy. Cardiac: RRR, no murmur, +S1/S2 Pulmonary: CTA bilaterally, no wheezes, rales or rhonchi, equal chest expansion Abdomen: soft, tender in RUQ , Bowel sounds noted, no guarding MSK: no joint swelling noted Extremities: no BLE edema, nontender calf, no cyanosis or clubbing Neuro: A&Ox3, moves all extremities, no focal deficits Psych: Appropriate mood and behavior Results - Labs CBC & Chem 7: 08/10/18 04:20 08/10/18 04:20 Labs: Last Result Calcium 8.3 mg/dL (8.6-10.3) L 08/10/18 04:20 Troponin I < 0.03 ng/mL (< 0.04) 08/07/18 16:33 Entire Visit Hgb 9.4 g/dL (11.5-15.4) L 08/10/18 04:20 Hct 29.0 % (35.3-44.9) L 08/10/18 04:20 PT 14.1 Seconds (9.4-12.1) H 08/06/18 12:13 Total Bilirubin 0.6 mg/dL (0.3-1.0) 08/07/18 13:44 AST 30 Units/L (13-39) 08/07/18 13:44 ALT 12 Units/L (7-52) 08/07/18 13:44 - ABG ABG results: PT/INR, D-dimer PT 14.1 Seconds (9.4-12.1) H 08/06/18 12:13 Consult Discharge Plan - Plan Referrals: Bartolo Washburn MD [Primary Care Provider] -
[2018-08-10] MEDS: metroNIDAZOLE 500 MG TABLET PO SCH ×2 (17:03→21:40)
--- NOTE | 2018-08-10 17:30 | Internal Med Progress Note ---
Hospitalist Progress Note - Encounter Date of Encounter: 08/10/18 Time of Encounter: 09:00 - Subjective Interval History: Pt is awake, alert, oriented x 3. Still mild RLQ abd pain. Denies N/V/D. GI sign off and we planned to d/c pt on po abx to [facility] today. However, pt's family came to bedside this afternoon and reported that pt has frequent hospitalization recently for "sepsis", respond well to abx but usually quickly come back after discharge. Pt also has "septic shock" in [facility] recently and need ICU admission and pressors. Family has significant concerns for the reason of recurrent infection. - Exam Vitals: Temp Pulse Resp BP Pulse Ox 98.2 F 80 19 143/62 100 08/10/18 16:32 08/10/18 16:32 08/10/18 16:32 08/10/18 16:32 08/10/18 16:32 Exam: General appearance: Present: A&O X 0, cooperative, no acute distress Exam: as above - Head Head exam: Present: atraumatic, normocephalic - Eye Eye exam: Present: conjuntiva pink, sclera anicteric - Neck Neck exam general surgery: Present: supple, trachea midline. Absent: lymphadenopathy - Respiratory Respiratory exam: Present: CTAB. Absent: accessory muscle use, rales, rhonchi, wheezes - Cardiovascular Cardiovascular exam: Present: RRR, +S1, +S2. Absent: diastolic murmur, gallop, rubs, systolic murmur - GI/Abdominal GI/Abdominal exam: Present: Tender RUQ with palpation, normal bowel sounds, soft , no peritoneal signs. Non-distended - Extremities Exam Extremities exam: Present: warm. Absent: calf tenderness, cyanotic, pedal edema - Neurological Exam Neurological exam: Present: CN II-XII intact, oriented X3, no focal deficits. Absent: pronater drift, facial droop, speech deficit - Skin Skin exam: Present: dry, intact - Assessment and Plan (1) Lung cancer Current Visit: No Status: Chronic Assessment and Plan: squamous cell carcinoma per biopsy. Cont f/u oncology as outpatient. (2) Abdominal pain Current Visit: Yes Status: Chronic Assessment and Plan: Improved. CT abd shows cystitis/colitis. Cont rocephin and flagyl at this point. Family report frequent "sepsis/uti/colitis". Reviewed her old chart, blood cultures negative in our hospital. Urine culture shows multiple positive results previously. Will consider ID and urology consult as pt has stent placed on right ureter. Will obtain [facility] records. (3) Altered mental status Current Visit: Yes Status: Acute Assessment and Plan: likely due to metabolic encephalopathy. Improved now. AAO x3 now. Code(s): R41.82 - Altered mental status, unspecified SNOMED Code(s): 788158455 (4) Hypophosphatemia Current Visit: Yes Status: Acute Assessment and Plan: corrected. Cont closely f/u. (5) Malnutrition Current Visit: Yes Status: Acute Assessment and Plan: Consult art librarian. (6) Acute cystitis Current Visit: Yes Status: Acute Assessment and Plan: Has been on Rocephin. No signs of pyelonephritis. (7) Ischemic colitis Current Visit: Yes Status: Acute Assessment and Plan: Recent diagnosis of severe ischemic colitis. Cont rocephin and flagyl. GI consult. (8) ESRD (end stage renal disease) Current Visit: No Status: Acute Assessment and Plan: Cont HD per schedule. DVT Prophylaxis: SCDs - Time Spent with Patient Total time spent is greater than 50% in coordination of care (as documented) at patient's floor/unit and/or counseling patient: 25 - 35 minutes Plan of Care Discussed with: family Internal Medicine: Result - Labs CBC & Chem 7: 08/10/18 04:20 08/10/18 04:20 Labs: Short CBC 08/10/18 Range/Units 04:20 WBC 7.3 (4.3-11.1) K/mcL Hgb 9.4 L (11.5-15.4) g/dL Hct 29.0 L (35.3-44.9) % Plt Count 263 (140-400) K/mcL Neutrophils # 4.8 (1.6-8.9) K/mcL BMP 08/10/18 04:20 Sodium 136 Potassium 3.7 Chloride 98 Carbon Dioxide 30 H BUN 9 Creatinine 2.47 H Glucose 190 H Calcium 8.3 L - ABG Interpretation ABG results: PT/INR, D-dimer PT 14.1 Seconds (9.4-12.1) H 08/06/18 12:13 Consult Discharge Plan - Plan Referrals: Jared Dee MD [Partnered Physician] - (Web Requeasted 08/10/2018) Bartolo Washburn MD [Primary Care Provider] - (Patient is goingh to [facility]) (1) Lung cancer Qualifiers: Laterality: right Lung location: unspecified part of lung Qualified Code(s) : C34.91 - Malignant neoplasm of unspecified part of right bronchus or lung (2) Abdominal pain Qualifiers: Abdominal location: right lower quadrant Qualified Code(s): R10.31 - Right lower quadrant pain (3) Altered mental status Qualifiers: Altered mental status type: disorientation Qualified Code(s): R41.0 - Disorientation, unspecified (5) Malnutrition Qualifiers: Malnutrition type: protein-calorie malnutrition Protein-calorie malnutrition severity: moderate Qualified Code(s): E44.0 - Moderate protein-calorie malnutrition (6) Acute cystitis Qualifiers: Hematuria presence: without hematuria Qualified Code(s): N30.00 - Acute cystitis without hematuria
[2018-08-11] MEDS: *HR* FentaNYL (PF) 100 MCG/2 ML VIAL IVP PRN (01:32)
[2018-08-11] MEDS ORDERED: *HR* HYDROcodone/Acet 5/325 mg TABLET PO PRN (07:46)
[2018-08-11] MEDS ORDERED: *HR* OxyCODONE/APAP 5/325 TABLET PO PRN (07:47)
[2018-08-11 07:58] LABS: Calcium 8.2 mg/dL (8.6-10.3); Potassium 4.3 mEq/L (3.5-5.1)
[2018-08-11 08:11] LABS: Basophils % 0.4 %; Eosinophils # 0.3 K/mcL (0.0-0.6); Eosinophils % 4.5 %; Hematocrit 27.4 % (35.3-44.9); Hemoglobin 8.9 g/dL (11.5-15.4); Immature Granulocytes % 0.5 % (0-4); Lymphocytes # 1.5 K/mcL (0.6-4.6); Lymphocytes % 20.5 %; Mean Corpuscular HGB Conc 32.5 g/dL (31.6-35.5); Mean Corpuscular Hemoglobin 31.2 pg (28.0-33.3); Mean Corpuscular Volume 96.1 fL (83.0-100.0); Mean Platelet Volume 10.4 fL (9.4-12.4); Monocytes # 0.8 K/mcL (0.0-1.3); Monocytes % 10.7 %; Neutrophils # 4.8 K/mcL (1.6-8.9); Platelet Count 201 K/mcL (140-400); Red Blood Count 2.85 M/mcL (3.82-4.97); Red Cell Distribution Width 12.9 % (11.5-14.5); Segmented Neutrophils % 63.4 %
[2018-08-11] MEDS: metroNIDAZOLE 500 MG TABLET PO SCH ×3 (08:19→21:50)
[2018-08-11] MEDS: cefTRIAXone 1,000 MG in Water for inj. (sterile) 20 ML 10 ML IVP SCH (08:20)
[2018-08-11] MEDS: *HR* OxyCODONE/APAP 5/325 TABLET PO PRN ×2 (08:20→17:17)
[2018-08-11] MEDS: Insulin LISPRO 300 UNITS/3 ML VIAL SQ SCH ×3 (08:21→17:18)
--- NOTE | 2018-08-11 09:08 | Urology - Consult Note ---
<Cynthia Martinez N - Last Filed: 08/11/18 09:06> Date of Encounter: 08/11/18 Time of Encounter: 08:30 - Assessment and Plan (1) Hydronephrosis Current Visit: Yes Status: Acute Assessment and plan: Patient is a 67-year-old female who presents the history of moderate right hydronephrosis. Patient currently has a right nephroureteral stent in place. Creatinine is 3.94 from 2.47, and patient is undergoing dialysis. I discussed stent exchange with the patient, as she is nearing the 6 month interval. I also discussed self intermittent catheterization. The patient states she usually does this once daily, but due to her illness, she has not self catheterized and approximately 2 months. I discussed placing an indwelling Khanna, but the patient wishes to resume self-catheterization while in hospital. Patient reports she is currently voiding without difficulty and does not wish to have an indwelling catheter placed. I will order a bladder scan to evaluate PVR and discuss catheterization plan and stent exchange with Dr. Welch. Qualifiers: Hydronephrosis type: unspecified Qualified Code(s): N13.30 - Unspecified hydronephrosis (2) UTI (urinary tract infection) Current Visit: Yes Status: Acute Assessment and plan: Patient is a 67-year-old female who presents with recurrent urinary tract infection. Patient has not been self intermittent catheterizing as instructed. Urine culture was not obtained in the emergency department, but it was later collected and was positive for khushbu. WBC reassuring. Vital signs are stable and reassuring. Patient has been placed on IV Rocephin and is showing much improvement with mental status. Qualifiers: Urinary tract infection type: acute cystitis Hematuria presence: with hematuria Qualified Code(s): N30.01 - Acute cystitis with hematuria Urology CN:HPI Consult date: 08/11/18 Reason for consult Urology: Hydronephrosis History of present illness: Patient is a 67-year-old female who presents with recurrent urinary tract infection and moderate right hydronephrosis. Patient was initially brought to the emergency department for evaluation of altered mental status by the staff at her extended care facility. CT scan of abdomen and pelvis reveals a thickened urinary bladder consistent with infection as well as right hydronephrosis that appears slightly worse since her last CT scan. Patient reports she has been hospitalized the majority of the last 2 months and has not been self intermittent catheterizing as instructed by Dr. Wu. Patient currently has a right nephroureteral stent placed by Dr. Wu in January 2018. Patient denies fever, chills, flank pain, dysuria, hematuria. Past Med Surg Social Fam HX - Past Medical History Medical history: arthritis, cancer, coronary artery disease, diabetes, dialysis , GERD, hyperlipidemia, hypertension, myocardial infarction, renal disease, other Additional medical history: neuropathy, insomnia Psychiatric history: anxiety, depression - Past Surgical History Surgical History: appendectomy, cholecystectomy, coronary bypass (CABG), hysterectomy, ureteral stent, other Additional surgical history: colonoscopy - egd - tubal ligation - kidney stent - Social History Smoking Status: Former smoker Smokeless Tobacco Status: No Alcohol use: none Drug use: none - Family History Mother Living Status: Hx Family Endocrine Disorder: (DM) Father Adopted: No Hx Family Cardiac Disorders: Yes ("heart troubles") Hx Family Cancer: Yes (Prostate cancer) Hx Family Endocrine Disorder: Yes (DM) Brother Hx Family Cardiac Disorders: Yes (CAD) Hx Family Cancer: Yes (lung cancer) Medications and Allergies Folic Acid 1 mg PO DAILY 07/10/15 [History] Levothyroxine [Synthroid] 50 mcg PO QAM 07/10/15 [History] Pantoprazole Sodium [Protonix] 40 mg PO BID 07/10/15 [History] Solifenacin Succinate [Vesicare] 10 mg PO DAILY 07/10/15 [History] Aspirin 81 mg PO DAILY #30 tab.chew 02/18/16 [Rx] Metoprolol XL (24 HR) Succ [Toprol Xl] 12.5 mg PO DAILY #30 tab.er.24h 02/18/16 [Rx] Docusate [Colace] 100 mg PO BID 10/14/16 [History] Albuterol Sulfate [Proair Hfa] 2 puff IH Q4H PRN 03/17/17 [History] Atorvastatin [Lipitor] 40 mg PO HS 03/17/17 [History] Clopidogrel [Plavix] 75 mg PO DAILY 05/09/17 [History] Ondansetron ODT [Zofran ODT] 4 mg PO Q8H PRN 05/09/17 [History] Sucralfate [Carafate] 1 gm PO 0730,1630 05/09/17 [History] Folic Acid/Vit Bcomp,C [Renal-Elizabeth Tablet] 0.8 mg PO DAILY 03/01/18 [History] Furosemide [Lasix] 20 mg PO DAILY 03/01/18 [History] Amitriptyline [Elavil] 25 mg PO HS 03/26/18 [History] DULoxetine [Cymbalta] 30 mg PO Q48H 03/26/18 [History] Ergocalciferol (VITAMIN D2) [Drisdol] 50,000 unit PO MO 03/26/18 [History] Insulin ASPART [NovoLOG] 2 - 8 unit SQ TID 03/26/18 [History] Insulin DETEMIR [Levemir] 12 unit SQ QAM 03/26/18 [History] Tamsulosin [Flomax] 0.4 mg PO DAILY 03/26/18 [History] Zolpidem [Ambien] 5 mg PO HS 03/26/18 [History] Lactobacillus Combination No.8 [Adult Probiotic] 1 cap PO DAILY 05/04/18 [ History] Pramipexole Di-HCl [Pramipexole Dihydrochloride] 0.125 mg PO HS 05/04/18 [ History] Promethazine [Phenergan] 25 mg PO TID PRN 05/04/18 [History] Psyllium Husk [Daily Fiber] 0.52 gm PO DAILY 05/04/18 [History] SUMAtriptan Succinate [Imitrex] 6 mg SQ BID PRN 05/04/18 [History] OxyCODONE/APAP 5/325 [Percocet 5/325 MG] 1 tab PO TID PRN 3 Days #9 tablet 07/30 [Rx] Baclofen [Lioresal] 10 mg PO TID PRN 07/31/18 [History] Lisinopril [Zestril] 20 mg PO DAILY 07/31/18 [History] Mirtazapine [Remeron] 15 mg PO HS 07/31/18 [History] Ciprofloxacin [Cipro] 500 mg PO Q24H 10 Days #10 tablet 08/04/18 [Rx] metroNIDAZOLE [Flagyl] 500 mg PO TID 10 Days #30 tablet 08/04/18 [Rx] Insulin DETEMIR [Levemir Flextouch] 14 unit SQ QPM 08/06/18 [History] 3 Allergy/AdvReac Type Severity Reaction Status Date / Time adhesive tape Allergy Redness of Verified 07/15/18 11:57 Skin latex Allergy Swelling Verified 07/15/18 11:57 of Lip/Tongue/Throat Sulfa (Sulfonamide Allergy Rash Verified 07/15/18 11:57 Antibiotics) Review of Systems - Constitutional fatigue, no chills, no fever(s) - EENT Nose, mouth and throat: no dizziness, no headache(s) - Cardiovascular no chest pain, no diaphoresis, no dyspnea - Respiratory no cough, no dyspnea - Gastrointestinal no abdominal pain, no change in bowel habits, no nausea, no vomiting - Genitourinary Genitourinary: no difficulty urinating, no dysuria, no flank pain, no urinary frequency, no urinary hesitancy, no urinary incontinence, no urinary urgency - Musculoskeletal no back pain, no muscle weakness - Integumentary no erythema, no rash, no swelling - Neurological no confusion, no syncope - Psychiatric no anxiety, no confusion - Hematologic/Lymphatic no easy bleeding, no easy bruising - Allergic/Immunologic no throat swelling, no wheezing Exam Initial Vital Signs Temp Pulse Resp BP Pulse Ox 98.1 F 87 22 151/101 88 08/06/18 11:13 08/06/18 11:13 08/06/18 11:13 08/06/18 11:13 08/06/18 11:13 - General physical appearance Present: well developed, no distress, no pain - Eyes Present: PERRL, normal ocular movement - ENT Present: normal nares, no hearing loss, no congestion - Neck Present: no masses, trachea midline - Respiratory Present: normal respiratory effort - Cardiovascular Cardiovascular exam IM: RRR - Abdomen Abdomen: Present: soft, non tender - Integumentary Present: no rash, no abnormal pigmentation - Neurologic Present: normal coordination - Musculoskeletal Present: other (normal posture ) Urology Results - Labs 08/11/18 07:20 08/11/18 07:20 Abnormal lab results RBC 2.85 M/mcL (3.82-4.97) L 08/11/18 07:20 Hgb 8.9 g/dL (11.5-15.4) L 08/11/18 07:20 Hct 27.4 % (35.3-44.9) L 08/11/18 07:20 PT 14.1 Seconds (9.4-12.1) H 08/06/18 12:13 Sodium 133 mEq/L (136-145) L 08/11/18 07:20 BUN 24 mg/dL (8-23) H 08/11/18 07:20 Creatinine 3.94 mg/dL (0.60-1.20) H 08/11/18 07:20 Est GFR ( Amer) 14 (> 60) L 08/11/18 07:20 Est GFR (Non-Af Amer) 11 (> 60) L 08/11/18 07:20 Glucose 270 mg/dL (70-105) H 08/11/18 07:20 POC Glucose 152 mg/dL (70-99) H 08/10/18 07:54 Calcium 8.2 mg/dL (8.6-10.3) L 08/11/18 07:20 Phosphorus 5.3 mg/dL (2.7-4.5) H 08/09/18 07:30 Alkaline Phosphatase 106 Units/L (34-104) H 08/07/18 13:44 Albumin 3.3 g/dL (3.5-5.7) L 08/07/18 13:44 Globulin 4.1 g/dL (2.4-3.5) H 08/07/18 13:44 Albumin/Globulin Ratio 0.8 (1.1-2.2) L 08/07/18 13:44 Urine Clarity Cloudy (Clear) A 08/06/18 11:50 Ur Specific [place] < 1.005 (1.010-1.025) L 08/06/18 11:50 Urine Protein >=300 mg/dL (Neg-Trace) H 08/06/18 11:50 Urine Glucose (UA) 100 mg/dL (Normal) H 08/06/18 11:50 Urine Blood Moderate (Negative) H 08/06/18 11:50 Ur Leukocyte Esterase Large (Negative) H 08/06/18 11:50 Urine Microscopic RBC 5-15 per hpf (0-3) H 08/06/18 11:50 Urine Microscopic WBC TNTC per hpf (0-3) H 08/06/18 11:50 Ur Squamous Epith Cells Many per lpf (None-Few) H 08/06/18 11:50 Urine Yeast Few per hpf (None Seen) H 08/06/18 11:50 Ur Culture Indicated? NO. (NO) A 08/06/18 11:50 Diabetes panel 08/11/18 Range/Units 07:20 Sodium 133 L (136-145) mEq/L Potassium 4.3 (3.5-5.1) mEq/L Chloride 99 (98-107) mEq/L Carbon Dioxide 27 (23-29) mEq/L BUN 24 H (8-23) mg/dL Creatinine 3.94 H (0.60-1.20) mg/dL Glucose 270 H (70-105) mg/dL Calcium 8.2 L (8.6-10.3) mg/dL Calcium panel 08/11/18 Range/Units 07:20 Calcium 8.2 L (8.6-10.3) mg/dL Pituitary panel 08/11/18 Range/Units 07:20 Sodium 133 L (136-145) mEq/L Potassium 4.3 (3.5-5.1) mEq/L Chloride 99 (98-107) mEq/L Carbon Dioxide 27 (23-29) mEq/L BUN 24 H (8-23) mg/dL Creatinine 3.94 H (0.60-1.20) mg/dL Glucose 270 H (70-105) mg/dL Calcium 8.2 L (8.6-10.3) mg/dL Adrenal panel 08/11/18 Range/Units 07:20 Sodium 133 L (136-145) mEq/L Potassium 4.3 (3.5-5.1) mEq/L Chloride 99 (98-107) mEq/L Carbon Dioxide 27 (23-29) mEq/L BUN 24 H (8-23) mg/dL Creatinine 3.94 H (0.60-1.20) mg/dL Glucose 270 H (70-105) mg/dL Calcium 8.2 L (8.6-10.3) mg/dL All other labs normal. - Imaging CT scan - abdomen: report reviewed, image reviewed CT scan - pelvis: report reviewed, image reviewed Consult Discharge Plan - Plan Referrals: Jared Dee MD [Partnered Physician] - (Web Requeasted 08/10/2018) Bartolo Washburn MD [Primary Care Provider] - (Patient is goingh to [facility]) <Eliud Welch - Last Filed: 08/11/18 17:18> Date of Encounter: 08/11/18 - Assessment and Plan (1) Hydronephrosis Current Visit: Yes Status: Acute Assessment and plan: agree with PA note. pt will start SIC three times daily. order provided. pt NEEDS to cath, this is the reason she gets complications from utis. stent will be exchanged as an outpatient. Qualifiers: Hydronephrosis type: unspecified Qualified Code(s): N13.30 - Unspecified hydronephrosis Exam Initial Vital Signs Temp Pulse Resp BP Pulse Ox 98.1 F 87 22 151/101 88 08/06/18 11:13 08/06/18 11:13 08/06/18 11:13 08/06/18 11:13 08/06/18 11:13 Urology Results - Labs 08/11/18 07:20 08/11/18 07:20 Abnormal lab results RBC 2.85 M/mcL (3.82-4.97) L 08/11/18 07:20 Hgb 8.9 g/dL (11.5-15.4) L 08/11/18 07:20 Hct 27.4 % (35.3-44.9) L 08/11/18 07:20 PT 14.1 Seconds (9.4-12.1) H 08/06/18 12:13 Sodium 133 mEq/L (136-145) L 08/11/18 07:20 BUN 24 mg/dL (8-23) H 08/11/18 07:20 Creatinine 3.94 mg/dL (0.60-1.20) H 08/11/18 07:20 Est GFR ( Amer) 14 (> 60) L 08/11/18 07:20 Est GFR (Non-Af Amer) 11 (> 60) L 08/11/18 07:20 Glucose 270 mg/dL (70-105) H 08/11/18 07:20 POC Glucose 120 mg/dL (70-99) H 08/11/18 10:50 Calcium 8.2 mg/dL (8.6-10.3) L 08/11/18 07:20 Phosphorus 5.3 mg/dL (2.7-4.5) H 08/09/18 07:30 Alkaline Phosphatase 106 Units/L (34-104) H 08/07/18 13:44 Albumin 3.3 g/dL (3.5-5.7) L 08/07/18 13:44 Globulin 4.1 g/dL (2.4-3.5) H 08/07/18 13:44 Albumin/Globulin Ratio 0.8 (1.1-2.2) L 08/07/18 13:44 Urine Clarity Cloudy (Clear) A 08/06/18 11:50 Ur Specific [place] < 1.005 (1.010-1.025) L 08/06/18 11:50 Urine Protein >=300 mg/dL (Neg-Trace) H 08/06/18 11:50 Urine Glucose (UA) 100 mg/dL (Normal) H 08/06/18 11:50 Urine Blood Moderate (Negative) H 08/06/18 11:50 Ur Leukocyte Esterase Large (Negative) H 08/06/18 11:50 Urine Microscopic RBC 5-15 per hpf (0-3) H 08/06/18 11:50 Urine Microscopic WBC TNTC per hpf (0-3) H 08/06/18 11:50 Ur Squamous Epith Cells Many per lpf (None-Few) H 08/06/18 11:50 Urine Yeast Few per hpf (None Seen) H 08/06/18 11:50 Ur Culture Indicated? NO. (NO) A 08/06/18 11:50 Diabetes panel 08/11/18 Range/Units 07:20 Sodium 133 L (136-145) mEq/L Potassium 4.3 (3.5-5.1) mEq/L Chloride 99 (98-107) mEq/L Carbon Dioxide 27 (23-29) mEq/L BUN 24 H (8-23) mg/dL Creatinine 3.94 H (0.60-1.20) mg/dL Glucose 270 H (70-105) mg/dL Calcium 8.2 L (8.6-10.3) mg/dL Calcium panel 08/11/18 Range/Units 07:20 Calcium 8.2 L (8.6-10.3) mg/dL Pituitary panel 08/11/18 Range/Units 07:20 Sodium 133 L (136-145) mEq/L Potassium 4.3 (3.5-5.1) mEq/L Chloride 99 (98-107) mEq/L Carbon Dioxide 27 (23-29) mEq/L BUN 24 H (8-23) mg/dL Creatinine 3.94 H (0.60-1.20) mg/dL Glucose 270 H (70-105) mg/dL Calcium 8.2 L (8.6-10.3) mg/dL Adrenal panel 08/11/18 Range/Units 07:20 Sodium 133 L (136-145) mEq/L Potassium 4.3 (3.5-5.1) mEq/L Chloride 99 (98-107) mEq/L Carbon Dioxide 27 (23-29) mEq/L BUN 24 H (8-23) mg/dL Creatinine 3.94 H (0.60-1.20) mg/dL Glucose 270 H (70-105) mg/dL Calcium 8.2 L (8.6-10.3) mg/dL All other labs normal.
--- NOTE | 2018-08-11 11:03 | Nephrology Progress Note ---
Date of Encounter: 08/11/18 Time of Encounter: 09:45 - Assessment and Plan (1) ESRD (end stage renal disease) on dialysis Status: Chronic Plan for dialysis today. I reviewed her labs, vitals, prior progress notes, med list and using this E/M and MDM, I arranged for HD orders today. (2) Abdominal pain Status: Acute As per primary. Qualifiers: Qualified Code(s): R10.9 - Unspecified abdominal pain Subjective Principal diagnosis: Altered Mental Status Interval history: Pt was s/e while she was on HD. She did not affirm new N/V or other major complaints. Objective - Vital Signs Vital signs: Vital Signs Temp Pulse Resp BP Pulse Ox 08/11/18 07:01 97.8 F 78 18 123/73 100 08/11/18 05:35 98.9 F 98 16 160/70 100 08/11/18 01:08 98.7 F 98 16 144/65 99 08/10/18 22:14 98.4 F 94 16 153/69 100 08/10/18 16:32 98.2 F 80 19 143/62 100 08/10/18 12:02 98.1 F 92 19 95/56 100 Intake and Output 08/10/18 08/11/18 08/11/18 23:59 07:59 15:59 Intake Total 240 / 240 360 / 360 Balance 240 / 240 360 / 360 Intake: Oral 240 / 240 360 / 360 Other: Meal Dinner Breakfast Percent of Meal Consumed 100% 100% # Urine Diapers 1 Weight 72.5 kg Blood Glucose* 266 270 120 Patient Weight 08/11/18 23:59 Weight 72.5 kg - General Appearance General appearance: Present: chronically ill, fatigue, frail EENT: Present: ATNC, PERRL, mucous membranes moist Neck: Present: supple Respiratory: Present: clear Cardiology: Present: no edema, regular rate, regular rhythm, normal S1, normal S2 Dialysis Vascular Access: Arteriovenous Graft thrill: Yes bruit: Yes Gastrointestinal: Present: no tenderness, no guarding Integumentary: Present: warm and dry Neurologic: Present: no focal deficit, no asterixis, alert and oriented x3 Musculoskeletal: Present: no deformities, no erythema, no cyanosis Psychiatric: Present: mood/affect appropriate, cooperative - Lab 08/11/18 07:20 08/12/18 05:50 Most recent lab results Calcium 8.2 mg/dL (8.6-10.3) L 08/11/18 07:20 Phosphorus 5.3 mg/dL (2.7-4.5) H 08/09/18 07:30 Magnesium 2.0 mg/dL (1.6-2.6) 08/09/18 07:30 Consult Discharge Plan - Plan Referrals: Jared Dee MD [Partnered Physician] - (Web request completed 08/10/2018) Bartolo Washburn MD [Primary Care Provider] - (Patient is going to [facility]) Prescriptions: Ciprofloxacin [Cipro] 250 mg PO BID 14 Days #14 tablet Fluconazole [Diflucan] 200 mg PO QPM 4 Days #4 tablet metroNIDAZOLE [Flagyl] 500 mg PO TID 14 Days #42 tablet OxyCODONE/APAP 5/325 [Percocet 5/325 MG] 1 tab PO TID PRN 3 Days #9 tablet PRN Reason: Pain
[2018-08-11] MEDS: THIAMINE IVPB SCH (12:01)
[2018-08-11] MEDS: D5 IVPB SCH (12:01)
[2018-08-11] MEDS: WATER IVPB SCH (12:01)
[2018-08-11] MEDS: *HR* HYDROcodone/Acet 5/325 mg TABLET PO PRN (12:02)
--- NOTE | 2018-08-11 12:38 | Internal Med Progress Note ---
Hospitalist Progress Note - Encounter Date of Encounter: 08/11/18 Time of Encounter: 09:00 - Subjective Interval History: Pt is awake, alert, oriented x 3. Still mild RLQ abd pain. Denies N/V/D. Will have HD today. As pt has frequent hospitalization recently. Urology and ID has consulted. Tried to obtain [facility] document but RN told me [facility] has no her recent hospitalization record. - Exam Vitals: Temp Pulse Resp BP Pulse Ox 98.6 F 78 18 102/60 100 08/11/18 09:40 08/11/18 07:01 08/11/18 09:40 08/11/18 11:40 08/11/18 07:01 Exam: General appearance: Present: A&O X 0, cooperative, no acute distress Exam: as above - Head Head exam: Present: atraumatic, normocephalic - Eye Eye exam: Present: conjuntiva pink, sclera anicteric - Neck Neck exam general surgery: Present: supple, trachea midline. Absent: lymphadenopathy - Respiratory Respiratory exam: Present: CTAB. Absent: accessory muscle use, rales, rhonchi, wheezes - Cardiovascular Cardiovascular exam: Present: RRR, +S1, +S2. Absent: diastolic murmur, gallop, rubs, systolic murmur - GI/Abdominal GI/Abdominal exam: Present: Tender RUQ with palpation, normal bowel sounds, soft , no peritoneal signs. Non-distended - Extremities Exam Extremities exam: Present: warm. Absent: calf tenderness, cyanotic, pedal edema - Neurological Exam Neurological exam: Present: CN II-XII intact, oriented X3, no focal deficits. Absent: pronater drift, facial droop, speech deficit - Skin Skin exam: Present: dry, intact - Assessment and Plan (1) Lung cancer Current Visit: No Status: Chronic Assessment and Plan: squamous cell carcinoma per biopsy. Cont f/u oncology as outpatient. (2) Abdominal pain Current Visit: Yes Status: Chronic Assessment and Plan: Improved. CT abd shows cystitis/colitis. Cont rocephin and flagyl at this point. Family report frequent "sepsis/uti/colitis". Reviewed her old chart, blood cultures negative in our hospital. Urine culture shows multiple positive results previously. Appreciate urology consult. Will also consult ID for further management. (3) Altered mental status Current Visit: Yes Status: Acute Assessment and Plan: likely due to metabolic encephalopathy. Improved now. AAO x3 now. Code(s): R41.82 - Altered mental status, unspecified SNOMED Code(s): 238621709 (4) Hypophosphatemia Current Visit: Yes Status: Acute Assessment and Plan: corrected. Cont closely f/u. (5) Malnutrition Current Visit: Yes Status: Acute Assessment and Plan: Consult director apparel. (6) Acute cystitis Current Visit: Yes Status: Acute Assessment and Plan: Has been on Rocephin. No signs of pyelonephritis. Per urology, suggest pt cont self catheterization. (7) Ischemic colitis Current Visit: Yes Status: Acute Assessment and Plan: Recent diagnosis of severe ischemic colitis. Cont rocephin and flagyl. (8) ESRD (end stage renal disease) Current Visit: No Status: Acute Assessment and Plan: Cont HD per schedule. DVT Prophylaxis: SCDs - Time Spent with Patient Total time spent is greater than 50% in coordination of care (as documented) at patient's floor/unit and/or counseling patient: 30 min 25 - 35 minutes Plan of Care Discussed with: patient Internal Medicine: Result - Labs CBC & Chem 7: 08/11/18 07:20 08/11/18 07:20 Labs: Short CBC 08/11/18 Range/Units 07:20 WBC 7.5 (4.3-11.1) K/mcL Hgb 8.9 L (11.5-15.4) g/dL Hct 27.4 L (35.3-44.9) % Plt Count 201 (140-400) K/mcL Neutrophils # 4.8 (1.6-8.9) K/mcL BMP 08/11/18 07:20 Sodium 133 L Potassium 4.3 Chloride 99 Carbon Dioxide 27 BUN 24 H Creatinine 3.94 H Glucose 270 H Calcium 8.2 L - ABG Interpretation ABG results: PT/INR, D-dimer PT 14.1 Seconds (9.4-12.1) H 08/06/18 12:13 Consult Discharge Plan - Plan Referrals: Jared Dee MD [Partnered Physician] - (Web Requeasted 08/10/2018) Bartolo Washburn MD [Primary Care Provider] - (Patient is goingh to [facility]) (1) Lung cancer Qualifiers: Laterality: right Lung location: unspecified part of lung Qualified Code(s) : C34.91 - Malignant neoplasm of unspecified part of right bronchus or lung (2) Abdominal pain Qualifiers: Abdominal location: right lower quadrant Qualified Code(s): R10.31 - Right lower quadrant pain (3) Altered mental status Qualifiers: Altered mental status type: disorientation Qualified Code(s): R41.0 - Disorientation, unspecified (5) Malnutrition Qualifiers: Malnutrition type: protein-calorie malnutrition Protein-calorie malnutrition severity: moderate Qualified Code(s): E44.0 - Moderate protein-calorie malnutrition (6) Acute cystitis Qualifiers: Hematuria presence: without hematuria Qualified Code(s): N30.00 - Acute cystitis without hematuria
--- NOTE | 2018-08-11 13:51 | Infectious Disease Consult ---
Date of Encounter: 08/11/18 Time of Encounter: 13:50 Assessment and Plan (1) Altered mental status Status: Acute Assessment and plan: Likely secondary to metabolic encephalopathy Likely secondary to either colitis or UTI; colitis most likely Clinically significantly better Qualifiers: Altered mental status type: disorientation Qualified Code(s): R41.0 - Disorientation, unspecified (2) Cystitis Status: Acute Assessment and plan: Causative organism not clear Urine culture only grew Christine glabrata Consider Diflucan 200 mg daily 5 days (3) Colitis Status: Acute Assessment and plan: Status post colonoscopy on 08/02/2018 Ischemic ulcers noted Pathology mentions inflammatory bowel disease versus infectious versus ischemic I spoke with Dr. Domingo from GI and he thinks this is ischemic until proven otherwise Currently patient is on Rocephin and Flagyl. Consider switching to oral Cipro and Flagyl and to finish 14 days Monitor labs and for drug toxicity Dr. Domingo will re-scope in 4-6 weeks; so she needs to follow-up with him as an outpatient (4) Hydronephrosis Status: Acute Assessment and plan: Appreciate urology recommendation Patient had had a stent for 6 months Urology considering exchanging the stent Qualifiers: Hydronephrosis type: unspecified Qualified Code(s): N13.30 - Unspecified hydronephrosis (5) Diabetes mellitus type 2 in nonobese Status: Acute Assessment and plan: Diagnosed 15 years ago (6) ESRD (end stage renal disease) on dialysis Status: Chronic (7) CAD (coronary artery disease) Status: Chronic Assessment and plan: History of CABG 5 years ago Currently asymptomatic Qualifiers: Coronary Disease-Associated Artery/Lesion type: unspecified vessel or lesion type [place] vs. transplanted heart: unspecified whether [place] or transplanted heart Associated angina: angina presence unspecified Qualified Code(s): I25.10 - Atherosclerotic heart disease of [place] coronary artery without angina pectoris Infectious Disease HPI - Data of Consult Requesting Physician: Raman Seay MD Primary Care Provider: Bartolo Washburn MD - Consult Narrative Reason for consult: chronic infection History of present illness: Ms. Dan is a 67 year old female 67-year-old woman who presented to [facility] on 08/06/2018 as a transfer from the extended care facility for altered mental status and confusion. We are consulted today for frequent hospitalization for infections Patient is a 67-year-old woman with extensive past medical history mentioned below including diabetes mellitus type 2, end-stage renal disease on hemodialysis, coronary artery disease with history of IA, history of malignancy and arthritis who resides at an extended care facility was transferred to [facility] for confusion and not feeling well. Patient was not oriented but was alert. Most of the information was taken from medical records since the patient is not a good historian. Since admission, patient has been afebrile with MAXIMUM TEMPERATURE of 99.8. No tachycardia. Hemodynamically stable. Presenting labs revealed normal WBC with a WBC max of 9.4 with normal differential. Patients chemistry revealed chronic kidney disease with a BUN of 16 creatinine of 3.38. No lactic acidosis. LFTs within normal limits. A urinalysis was done and was contaminated and no culture was obtained. Patient had blood cultures 2 on 04/2018 and 2 out of 2 sets were no growth. A urine culture was obtained and it grew Christine glabrata Imaging: MRI of the head on 08/07/2018: Mild chronic small vessel ischemic disease with the periventricular white matter. No evidence of acute intracranial. CT abdomen and pelvis on 08/07/2018: WJ right sided ureteral stent appears in stable and satisfactory position. No evidence for hydronephrosis or other acute genitourinary process. Minor circumferential urinary bladder wall thickening likely related to the history of cystitis. Incidental finding including midline ventral hernia containing fat but no bowel. Previous cholecystectomy. Previous hysterectomy and atherosclerotic abnormal aortic calcification Chest x-ray on 08/07/2018: Right-sided pleural effusion. Bowel gas pattern suggesting of an ileus. Patient was started on Rocephin and Flagyl. On further questioning, apparently patient has ischemic colitis. She had a colonoscopy done on 08/29/2018 and the pathology states possible inflammatory bowel disease versus infectious versus ischemic. I did speak with he said it was definitely ischemic and it typically looks like that. Patient also has gastritis. Patient denies any urinary symptoms and she still has good urine output. CC: Raman Seay MD Past Med Surg Social Fam HX - Past Medical History Medical history: arthritis, cancer, coronary artery disease, diabetes, dialysis , GERD, hyperlipidemia, hypertension, myocardial infarction, renal disease, other Additional medical history: neuropathy, insomnia Psychiatric history: anxiety, depression - Past Surgical History Surgical History: appendectomy, cholecystectomy, coronary bypass (CABG), hysterectomy, ureteral stent, other Additional surgical history: colonoscopy - egd - tubal ligation - kidney stent - Social History Smoking Status: Former smoker Smokeless Tobacco Status: No Alcohol use: none Drug use: none - Family History Mother Living Status: Hx Family Endocrine Disorder: (DM) Father Adopted: No Hx Family Cardiac Disorders: Yes ("heart troubles") Hx Family Cancer: Yes (Prostate cancer) Hx Family Endocrine Disorder: Yes (DM) Brother Hx Family Cardiac Disorders: Yes (CAD) Hx Family Cancer: Yes (lung cancer) Infectious Disease-CN:Meds Folic Acid 1 mg PO DAILY 07/10/15 [History] Levothyroxine [Synthroid] 50 mcg PO QAM 07/10/15 [History] Pantoprazole Sodium [Protonix] 40 mg PO BID 07/10/15 [History] Solifenacin Succinate [Vesicare] 10 mg PO DAILY 07/10/15 [History] Aspirin 81 mg PO DAILY #30 tab.chew 02/18/16 [Rx] Metoprolol XL (24 HR) Succ [Toprol Xl] 12.5 mg PO DAILY #30 tab.er.24h 02/18/16 [Rx] Docusate [Colace] 100 mg PO BID 10/14/16 [History] Albuterol Sulfate [Proair Hfa] 2 puff IH Q4H PRN 03/17/17 [History] Atorvastatin [Lipitor] 40 mg PO HS 03/17/17 [History] Clopidogrel [Plavix] 75 mg PO DAILY 05/09/17 [History] Ondansetron ODT [Zofran ODT] 4 mg PO Q8H PRN 05/09/17 [History] Sucralfate [Carafate] 1 gm PO 0730,1630 05/09/17 [History] Folic Acid/Vit Bcomp,C [Renal-Elizabeth Tablet] 0.8 mg PO DAILY 03/01/18 [History] Furosemide [Lasix] 20 mg PO DAILY 03/01/18 [History] Amitriptyline [Elavil] 25 mg PO HS 03/26/18 [History] DULoxetine [Cymbalta] 30 mg PO Q48H 03/26/18 [History] Ergocalciferol (VITAMIN D2) [Drisdol] 50,000 unit PO MO 03/26/18 [History] Insulin ASPART [NovoLOG] 2 - 8 unit SQ TID 03/26/18 [History] Insulin DETEMIR [Levemir] 12 unit SQ QAM 03/26/18 [History] Tamsulosin [Flomax] 0.4 mg PO DAILY 03/26/18 [History] Zolpidem [Ambien] 5 mg PO HS 03/26/18 [History] Lactobacillus Combination No.8 [Adult Probiotic] 1 cap PO DAILY 05/04/18 [ History] Pramipexole Di-HCl [Pramipexole Dihydrochloride] 0.125 mg PO HS 05/04/18 [ History] Promethazine [Phenergan] 25 mg PO TID PRN 05/04/18 [History] Psyllium Husk [Daily Fiber] 0.52 gm PO DAILY 05/04/18 [History] SUMAtriptan Succinate [Imitrex] 6 mg SQ BID PRN 05/04/18 [History] OxyCODONE/APAP 5/325 [Percocet 5/325 MG] 1 tab PO TID PRN 3 Days #9 tablet 07/30 [Rx] Baclofen [Lioresal] 10 mg PO TID PRN 07/31/18 [History] Lisinopril [Zestril] 20 mg PO DAILY 07/31/18 [History] Mirtazapine [Remeron] 15 mg PO HS 07/31/18 [History] Ciprofloxacin [Cipro] 500 mg PO Q24H 10 Days #10 tablet 08/04/18 [Rx] metroNIDAZOLE [Flagyl] 500 mg PO TID 10 Days #30 tablet 08/04/18 [Rx] Insulin DETEMIR [Levemir Flextouch] 14 unit SQ QPM 08/06/18 [History] 3 Allergy/AdvReac Type Severity Reaction Status Date / Time adhesive tape Allergy Redness of Verified 07/15/18 11:57 Skin latex Allergy Swelling Verified 07/15/18 11:57 of Lip/Tongue/Throat Sulfa (Sulfonamide Allergy Rash Verified 07/15/18 11:57 Antibiotics) Review of systems: 10 point review of systems done, negative other for what mentioned in history of present illness. Exam - Constitutional Vitals: Temp Pulse Resp BP Pulse Ox 98.4 F 78 18 110/52 100 08/11/18 13:26 08/11/18 07:01 08/11/18 13:26 08/11/18 13:26 08/11/18 07:01 General appearance: cooperative, no acute distress, no febrile - Head Head exam: Present: atraumatic, normocephalic - Eye Eye exam: Present: EOMI, PERRL, sclera anicteric - ENT ENT exam: Present: mucous membranes moist Additional comments: No oral lesions - Neck Neck exam: Present: full ROM. Absent: meningismus - Respiratory Respiratory exam: Present: CTAB. Absent: wheezes - Cardiovascular Cardiovascular exam: Present: RRR, +S1, +S2 - GI/Abdominal GI/Abdominal exam: Present: normal bowel sounds, tenderness Additional comments: Worse tenderness in the right upper quadrant. She has some tenderness in the left lower quadrant and suprapubic tenderness - Extremities Exam Extremities exam: Present: full ROM, normal inspection - Neurological Exam Neurological exam: Present: oriented X3. Absent: speech deficit - Psychiatric Psychiatric exam: Present: normal affect, normal mood - Skin Skin exam: Present: normal color. Absent: rash Infectious Disease CN: Results - Labs CBC & Chem 7: 08/11/18 07:20 08/11/18 07:20 Serology: Serology 08/09/18 Range/Units 07:09 Hep Bs Antigen Nonreactive (Nonreactive) Hep Bs Antibody 18.61 mIU/mL Consult Discharge Plan - Plan Referrals: Jared Dee MD [Partnered Physician] - (Web Requeasted 08/10/2018) Bartolo Washburn MD [Primary Care Provider] - (Patient is goingh to [facility])
--- NOTE | 2018-08-11 16:57 | Palliative - Consult Note ---
Date of Encounter: 08/15/18 Time of Encounter: 10:30 - Assessment and Plan (1) Goals of care, counseling/discussion Status: Acute Assessment and plan: 10:30 I met wit patient in presence of resident. We discussed pt's medical condition, trajectory of illness, prognosis and treatment option. Patient is able to understand, but asked for palliative to return to meet with her son before any decision be made. at 1600, met with pt and her son Palmer. discussed goals of care; patient stated she did not want to be resuscitated or intubated. She decided for DNR and DNI. State form was completed. Also pt would like to designate her son Edgar as her POA. Discussed hospice, the services offered, but also the philosophy of hospice. Patient stated she still wants to continue dialysis, as well as curative treatment as indicated. She also would like to obtain some physical therapy is indicated. Patient is not yet hospice appropriate. (2) Pain Status: Acute Assessment and plan: Patient is on [place] for moderate pain and percocet for severe pain. Recommend the use of Percocet only for now. Patient appears comfortable. (3) UTI (urinary tract infection) Status: Acute Assessment and plan: on ABX Urology appreciated-patient has a R ureter stent and mild hydrnephrosis. Urology recommends intermittent self cauterization. Patient agreeable Qualifiers: Urinary tract infection type: acute cystitis Hematuria presence: with hematuria Qualified Code(s): N30.01 - Acute cystitis with hematuria (4) ESRD (end stage renal disease) on dialysis Status: Chronic Assessment and plan: On HD, tolerating it well. Palliative-CN HPI - Data of Consult Patient: new to practice Consult date: 08/11/18 Requesting Physician: Raman Seay MD Primary Care Provider: Bartolo Washburn MD - Consult Narrative Palliative Care/Comfort Measures: Palliative care Reason for consult: goals of care History of present illness: Ms. Dan is a 67 year old female with past medical history of end-stage renal disease, patient brought to to emergency room from [facility] for AMS on 08/06/18 , and was admitted for sepsis secondary to complicated UTI. pt was admitted multiple times in the last 2 months for the same complain. Hospital stay was complicated [facility] to [facility] by Dr. Wu in January 2018. Urology was consulted. Palliative care consulte for GOC. At the time of exam, pt was AAOx3, was in dialysis. She was complaining of pain in her lower left rib. Otherwise denies any fever, chills, nausea, vomiting, flank pain, abdominal pain, dysuria. CC: Raman Seay MD - Time Spent with Patient Time: Total time spent is greater than 50% in coordination of care face to face with patient, (as documented) at patient's floor/unit and/or counseling patient: Greater than 70 minutes Past Med Surg Social Fam HX - Past Medical History Medical history: arthritis, cancer, coronary artery disease, diabetes, dialysis , GERD, hyperlipidemia, hypertension, myocardial infarction, renal disease, other Additional medical history: neuropathy, insomnia Psychiatric history: anxiety, depression - Past Surgical History Surgical History: appendectomy, cholecystectomy, coronary bypass (CABG), hysterectomy, ureteral stent, other Additional surgical history: colonoscopy - egd - tubal ligation - kidney stent - Social History Smoking Status: Former smoker Smokeless Tobacco Status: No Alcohol use: none Drug use: none - Family History Mother Living Status: Hx Family Endocrine Disorder: (DM) Father Adopted: No Hx Family Cardiac Disorders: Yes ("heart troubles") Hx Family Cancer: Yes (Prostate cancer) Hx Family Endocrine Disorder: Yes (DM) Brother Hx Family Cardiac Disorders: Yes (CAD) Hx Family Cancer: Yes (lung cancer) Medications and Allergies Folic Acid 1 mg PO DAILY 07/10/15 [History] Levothyroxine [Synthroid] 50 mcg PO QAM 07/10/15 [History] Pantoprazole Sodium [Protonix] 40 mg PO BID 07/10/15 [History] Solifenacin Succinate [Vesicare] 10 mg PO DAILY 07/10/15 [History] Aspirin 81 mg PO DAILY #30 tab.chew 02/18/16 [Rx] Metoprolol XL (24 HR) Succ [Toprol Xl] 12.5 mg PO DAILY #30 tab.er.24h 02/18/16 [Rx] Docusate [Colace] 100 mg PO BID 10/14/16 [History] Albuterol Sulfate [Proair Hfa] 2 puff IH Q4H PRN 03/17/17 [History] Atorvastatin [Lipitor] 40 mg PO HS 05/18/17 [History] Clopidogrel [Plavix] 75 mg PO DAILY 05/09/17 [History] Ondansetron ODT [Zofran ODT] 4 mg PO Q8H PRN 05/09/17 [History] Sucralfate [Carafate] 1 gm PO 0730,1630 05/09/17 [History] Folic Acid/Vit Bcomp,C [Renal-Elizabeth Tablet] 0.8 mg PO DAILY 03/01/18 [History] Furosemide [Lasix] 20 mg PO DAILY 03/01/18 [History] Amitriptyline [Elavil] 25 mg PO HS 03/26/18 [History] DULoxetine [Cymbalta] 30 mg PO Q48H 03/26/18 [History] Ergocalciferol (VITAMIN D2) [Drisdol] 50,000 unit PO MO 03/26/18 [History] Insulin ASPART [NovoLOG] 2 - 8 unit SQ TID 03/26/18 [History] Insulin DETEMIR [Levemir] 12 unit SQ QAM 03/26/18 [History] Tamsulosin [Flomax] 0.4 mg PO DAILY 03/26/18 [History] Zolpidem [Ambien] 5 mg PO HS 03/26/18 [History] Lactobacillus Combination No.8 [Adult Probiotic] 1 cap PO DAILY 05/04/18 [ History] Pramipexole Di-HCl [Pramipexole Dihydrochloride] 0.125 mg PO HS 05/04/18 [ History] Promethazine [Phenergan] 25 mg PO TID PRN 05/04/18 [History] Psyllium Husk [Daily Fiber] 0.52 gm PO DAILY 05/04/18 [History] SUMAtriptan Succinate [Imitrex] 6 mg SQ BID PRN 05/04/18 [History] Baclofen [Lioresal] 10 mg PO TID PRN 07/31/18 [History] Lisinopril [Zestril] 20 mg PO DAILY 07/31/18 [History] Mirtazapine [Remeron] 15 mg PO HS 07/31/18 [History] Insulin DETEMIR [Levemir Flextouch] 14 unit SQ QPM 08/06/18 [History] Ciprofloxacin [Cipro] 250 mg PO BID 14 Days #14 tablet 08/12/18 [Rx] Fluconazole [Diflucan] 200 mg PO QPM 4 Days #4 tablet 08/12/18 [Rx] OxyCODONE/APAP 5/325 [Percocet 5/325 MG] 1 tab PO TID PRN 3 Days #9 tablet 08/12 [Rx] metroNIDAZOLE [Flagyl] 500 mg PO TID 14 Days #42 tablet 08/12/18 [Rx] 3 Allergy/AdvReac Type Severity Reaction Status Date / Time adhesive tape Allergy Redness of Verified 07/15/18 11:57 Skin latex Allergy Swelling Verified 07/15/18 11:57 of Lip/Tongue/Throat Sulfa (Sulfonamide Allergy Rash Verified 07/15/18 11:57 Antibiotics) - Constitutional Constitutional ROS PAL: fatigue, no chills - EENT Ears, nose, mouth, throat: no nasal congestion, no throat swelling - Cardiovascular Cardiovascular ROS: no leg edema, no pedal edema - Respiratory Respiratory: no cough, no dyspnea on exertion - Gastrointestinal Gastrointestinal: no abdominal pain, no diarrhea, no melena - Genitourinary Palliative ROS female: no dysuria, no flank pain - Musculoskeletal Additional comments: rib pain - Integumentary ROS Integumentary: no skin ulcer - Neurological Neurological ROS: no confusion, no dizziness, no memory loss Palliative Care-Exam - Constitutional Vitals: Temp Pulse Resp BP Pulse Ox 98.4 F 78 18 110/52 100 08/11/18 13:26 08/11/18 07:01 08/11/18 13:26 08/11/18 13:26 08/11/18 07:01 General appearance: Present: cooperative. Absent: febrile Exam: - Head Head exam: Present: atraumatic, normocephalic - Eye Eye exam: Present: conjuntiva pink, sclera anicteric - Neck Neck exam general surgery: Present: supple, trachea midline. Absent: lymphadenopathy - Respiratory Respiratory exam: Present: CTAB. Absent: accessory muscle use, rales, rhonchi, wheezes - Cardiovascular Cardiovascular exam: Present: RRR, +S1, +S2. Absent: diastolic murmur, gallop, rubs, systolic murmur - GI/Abdominal GI/Abdominal exam: Present: Tender RUQ with palpation, normal bowel sounds, soft , no peritoneal signs. Non-distended - Extremities Exam Extremities exam: Present: warm. Absent: calf tenderness, cyanotic, pedal edema AVF present on left arm - Neurological Exam Neurological exam: Present: CN II-XII intact, oriented X3, no focal deficits. Absent: pronater drift, facial droop, speech deficit - Skin Skin exam: Present: dry, intact Internal Medicine - CN: Reslt - Labs CBC & Chem 7: 08/11/18 07:20 08/12/18 05:50 Labs: Short CBC 08/11/18 Range/Units 07:20 WBC 7.5 (4.3-11.1) K/mcL Hgb 8.9 L (11.5-15.4) g/dL Hct 27.4 L (35.3-44.9) % Plt Count 201 (140-400) K/mcL Neutrophils # 4.8 (1.6-8.9) K/mcL BMP 08/11/18 07:20 Sodium 133 L Potassium 4.3 Chloride 99 Carbon Dioxide 27 BUN 24 H Creatinine 3.94 H Glucose 270 H Calcium 8.2 L - ABG Interpretation ABG results: PT/INR, D-dimer PT 14.1 Seconds (9.4-12.1) H 08/06/18 12:13 Consult Discharge Plan - Plan Referrals: Jared Dee MD [Partnered Physician] - (Web request completed 08/10/2018) Bartolo Washburn MD [Primary Care Provider] - (Patient is going to [facility]) Prescriptions: Ciprofloxacin [Cipro] 250 mg PO BID 14 Days #14 tablet Fluconazole [Diflucan] 200 mg PO QPM 4 Days #4 tablet metroNIDAZOLE [Flagyl] 500 mg PO TID 14 Days #42 tablet OxyCODONE/APAP 5/325 [Percocet 5/325 MG] 1 tab PO TID PRN 3 Days #9 tablet PRN Reason: Pain Palliative Quality Palliative Quality: Screen for Code Status: Yes, Screen for Goals of Care: Yes, Screen for Pain: Yes, If Pain Regimen Started, Initiate Bowel Regimen: NA, Screen for Nausea/Vomitting: Yes
[2018-08-11] MEDS ORDERED: Fluconazole 100 MG TABLET PO SCH (18:45)
[2018-08-12] MEDS: Insulin LISPRO 300 UNITS/3 ML VIAL SQ SCH ×3 (02:39→12:09)
[2018-08-12 06:28] LABS: Potassium 4.6 mEq/L (3.5-5.1)
[2018-08-12 07:51] VITALS: BP 151/79
[2018-08-12] MEDS: cefTRIAXone 1,000 MG in Water for inj. (sterile) 20 ML 10 ML IVP SCH (09:10)
[2018-08-12] MEDS: metroNIDAZOLE 500 MG TABLET PO SCH (09:11)
[2018-08-12] MEDS: *HR* HYDROcodone/Acet 5/325 mg TABLET PO PRN (09:11)
--- NOTE | 2018-08-12 09:51 | Event Note ---
Date of Encounter: 08/12/18 Time of Encounter: 09:50 Nephrology Chart Review S/p HD yesterday. I reviewed her labs, vitals, med list and I/Os and would recommend HD on Tuesday. I will be available this weekend if needed. Otherwise my colleague Dr. Diehl will be on-call starting Tuesday. Thank you.
--- NOTE | 2018-08-12 10:20 | Discharge Summary ---
- NOTES TO OUTPATIENT PROVIDER Notes to Outpatient Provider: 1. Cont po cipro and flagyl for 14 days for ischemic colitis. F/U with GI as outpatient. 2. Cont fluconazole 200mg po daily for 4 more days to finish 5 day course. 3. Per urology, pt need self catheterization for her urinary retention. Orders not resulted at time of discharge: Pending orders 08/07/18 US abdomen limited [US] Stat 08/07/18 15:26 Urinalysis Reflex Cult & Micro [URIN] Routine 08/13/18 04:00 Basic Metabolic Panel AM 0400 08/14/18 04:00 Basic Metabolic Panel AM 0400 Date of Encounter: 08/12/18 Time of Encounter: 09:00 - Discharge Diagnosis (1) Lung cancer Priority: Secondary Status: Chronic Qualifiers: Laterality: right Lung location: unspecified part of lung Qualified Code( s): C34.91 - Malignant neoplasm of unspecified part of right bronchus or lung (2) Abdominal pain Priority: Primary Status: Chronic Qualifiers: Abdominal location: right lower quadrant Qualified Code(s): R10.31 - Right lower quadrant pain (3) Altered mental status Priority: Primary Status: Acute Qualifiers: Altered mental status type: disorientation Qualified Code(s): R41.0 - Disorientation, unspecified Code(s): R41.82 - Altered mental status, unspecified SNOMED Code(s): 001901256 (4) Hypophosphatemia Priority: Secondary Status: Acute (5) Malnutrition Priority: Secondary Status: Acute Qualifiers: Malnutrition type: protein-calorie malnutrition Protein-calorie malnutrition severity: moderate Qualified Code(s): E44.0 - Moderate protein- calorie malnutrition (6) Acute cystitis Priority: Primary Status: Acute Qualifiers: Hematuria presence: without hematuria Qualified Code(s): N30.00 - Acute cystitis without hematuria (7) Ischemic colitis Priority: Primary Status: Acute (8) ESRD (end stage renal disease) Priority: Secondary Status: Acute Hospital course: Ms. Dan is a 67 year old female admitted for AMS, consider UTI and ischemic colitis. Surgical, GI, ID and urology consult saw pt. Pt was placed on rocephin initially and add flagyl laterly. Will switch to po cipro and fagyl upon discharge per GI/ID recommendation. After treatment, pt's mental status back to baseline, awake, alert, and oreinted x 3. Pt has frequent and multiple hospitalization recently. After d/w ID and urology, suggest pt restart self catherization as she has chronic urinary retention and doesn't want medical terminologist Khanna catheter. Pt will cont cipro and flagyl po for 14 days and po fluconazole for 5 days as urine culture shows khushbu. I have seen and examined pt today, AAO x 3, in NAD, mild RLQ tenderness which has improved. Vitals stable. D/W her regarding the management plan, we cannot garantee that she will not be hospitalized again and will d/c her to ECF based on her current clinical condition. Pt shows understanding and agree with the plan. Will d/c pt to ECF if bed available. - Time Spent with Patient Total time spent providing and/or coordinating discharge services: 40 min Greater than 30 minutes - Discharge Medications Prescriptions: Ciprofloxacin [Cipro] 250 mg PO BID 14 Days #14 tablet Fluconazole [Diflucan] 200 mg PO QPM 4 Days #4 tablet metroNIDAZOLE [Flagyl] 500 mg PO TID 14 Days #42 tablet OxyCODONE/APAP 5/325 [Percocet 5/325 MG] 1 tab PO TID PRN 3 Days #9 tablet PRN Reason: Pain Home Medications: Folic Acid 1 mg PO DAILY 07/10/15 [History] Levothyroxine [Synthroid] 50 mcg PO QAM 07/10/15 [History] Pantoprazole Sodium [Protonix] 40 mg PO BID 07/10/15 [History] Solifenacin Succinate [Vesicare] 10 mg PO DAILY 07/10/15 [History] Aspirin 81 mg PO DAILY #30 tab.chew 02/18/16 [Rx] Metoprolol XL (24 HR) Succ [Toprol Xl] 12.5 mg PO DAILY #30 tab.er.24h 02/18/16 [Rx] Docusate [Colace] 100 mg PO BID 10/14/16 [History] Albuterol Sulfate [Proair Hfa] 2 puff IH Q4H PRN 03/17/17 [History] Atorvastatin [Lipitor] 40 mg PO HS 03/17/17 [History] Clopidogrel [Plavix] 75 mg PO DAILY 05/09/17 [History] Ondansetron ODT [Zofran ODT] 4 mg PO Q8H PRN 05/09/17 [History] Sucralfate [Carafate] 1 gm PO 0730,1630 05/09/17 [History] Folic Acid/Vit Bcomp,C [Renal-Elizabeth Tablet] 0.8 mg PO DAILY 03/01/18 [History] Furosemide [Lasix] 20 mg PO DAILY 03/01/18 [History] Amitriptyline [Elavil] 25 mg PO HS 03/26/18 [History] DULoxetine [Cymbalta] 30 mg PO Q48H 03/26/18 [History] Ergocalciferol (VITAMIN D2) [Drisdol] 50,000 unit PO MO 03/26/18 [History] Insulin ASPART [NovoLOG] 2 - 8 unit SQ TID 03/26/18 [History] Insulin DETEMIR [Levemir] 12 unit SQ QAM 03/26/18 [History] Tamsulosin [Flomax] 0.4 mg PO DAILY 03/26/18 [History] Zolpidem [Ambien] 5 mg PO HS 03/26/18 [History] Lactobacillus Combination No.8 [Adult Probiotic] 1 cap PO DAILY 05/04/18 [ History] Pramipexole Di-HCl [Pramipexole Dihydrochloride] 0.125 mg PO HS 05/04/18 [ History] Promethazine [Phenergan] 25 mg PO TID PRN 05/04/18 [History] Psyllium Husk [Daily Fiber] 0.52 gm PO DAILY 05/04/18 [History] SUMAtriptan Succinate [Imitrex] 6 mg SQ BID PRN 05/04/18 [History] Baclofen [Lioresal] 10 mg PO TID PRN 07/31/18 [History] Lisinopril [Zestril] 20 mg PO DAILY 07/31/18 [History] Mirtazapine [Remeron] 15 mg PO HS 07/31/18 [History] Insulin DETEMIR [Levemir Flextouch] 14 unit SQ QPM 08/06/18 [History] Ciprofloxacin [Cipro] 250 mg PO BID 14 Days #14 tablet 08/12/18 [Rx] Fluconazole [Diflucan] 200 mg PO QPM 4 Days #4 tablet 08/12/18 [Rx] OxyCODONE/APAP 5/325 [Percocet 5/325 MG] 1 tab PO TID PRN 3 Days #9 tablet 08/12 [Rx] metroNIDAZOLE [Flagyl] 500 mg PO TID 14 Days #42 tablet 08/12/18 [Rx] Allergies/Adverse Reactions: 3 Allergy/AdvReac Type Severity Reaction Status Date / Time adhesive tape Allergy Redness of Verified 07/15/18 11:57 Skin latex Allergy Swelling Verified 07/15/18 11:57 of Lip/Tongue/Throat Sulfa (Sulfonamide Allergy Rash Verified 07/15/18 11:57 Antibiotics) Date of admission: 08/06/18 15:30 Primary care physician: Bartolo Washburn MD Consults: 08/06/18 17:39 Consult to Nephrology [CONS] Routine Consulting Provider: [facility] Reason for Consult: ESRD , dialysis Call Completed: Yes 08/07/18 04:05 Consult to Neurology [CONS] Routine Consulting Provider: [facility] Reason for Consult: Patient presented with new onset altered mental status and encephalopathic type symptoms and later in the evening developed anisocoria Call Completed: No 08/07/18 08:30 Consult to Dialysis [CONS] ONCE 08/07/18 15:57 Consult to Surgery [CONS] Routine Consulting Provider: Mane Dennis Reason for Consult: abdominal pain Call Completed: Yes 08/08/18 14:51 Consult to Gastroenterology [CONS] Routine Consulting Provider: [facility] Reason for Consult: Abd pain. Hx of ischemic colitis Call Completed: Yes 08/09/18 06:45 Consult to Dialysis [CONS] ONCE 08/11/18 07:43 Consult to Urology [CONS] Routine Consulting Provider: [facility] Reason for Consult: Recurrent hospitalizations for infection, CT shows residual hydronephrosis. Call Completed: Yes 08/11/18 07:45 Consult to Dialysis [CONS] ONCE 08/11/18 08:30 Consult to Palliative Care [CONS] Routine Comment: Consulting Provider: [facility] Reason for Consult: cancer Time Notified: 08:31 Call Completed: Yes 08/11/18 10:16 Consult to Infectious Diseases [CONS] Routine Consulting Provider: Infectious [facility] Reason for Consult: Frequent hospitalization for infections Call Completed: Yes Discharging clinician: Krishna Cabral Anticipated date of discharge: 08/12/18 - Constitutional Vitals: Temp Pulse Resp BP Pulse Ox 97.8 F 95 16 151/79 95 08/12/18 07:49 08/12/18 07:49 08/12/18 07:49 08/12/18 07:49 08/12/18 07:49 General appearance: Present: cooperative, A&O X 3, no acute distress, answers questions appropriately Exam: in NAD - Head Head exam: Present: atraumatic, normocephalic - Eye Eye exam: Present: PERRL, conjuntiva pink, sclera anicteric Pupils: Present: PERRL - Neck Neck exam general surgery: Present: supple, trachea midline. Absent: lymphadenopathy - Respiratory Respiratory exam: Present: CTAB. Absent: accessory muscle use, rales, rhonchi, wheezes - Cardiovascular Cardiovascular exam: Present: RRR, +S1, +S2. Absent: diastolic murmur, gallop, rubs, systolic murmur - GI/Abdominal GI/Abdominal exam: Present: normal bowel sounds, soft, tenderness (Mild tenderness on RLQ w/o rebound or guarding), no peritoneal signs. Absent: distended - Extremities Exam Extremities exam: Present: warm, radial pulses palpable and symmetrical. Absent : calf tenderness, cyanotic, pedal edema - Neurological Exam Neurological exam: Present: CN II-XII intact, oriented X3, no focal deficits. Absent: pronater drift, facial droop, speech deficit - Skin Skin exam: Present: dry, intact - Patient Status Disposition: Transfer SNF Condition: Fair Functional capacity at discharge: uses cane/walker Overall status at discharge: patient is back to baseline - Discharge Instructions Follow Up With: Jared Dee MD [Partnered Physician] - (Web Requeasted 08/10/2018) Bartolo Washburn MD [Primary Care Provider] - (Patient is goingh to [facility]) - Diet and Activity Activity: as per physical therapy Diet: diabetic diet, low fat, low cholesterol, low salt diet, other (renal diet)
[2018-08-12] MEDS ORDERED: Lisinopril 20 MG TABLET PO SCH (10:45)
[2018-08-12] MEDS ORDERED: Metoprolol XL (24 HR) Succ 25 MG TAB.ER.24H PO SCH (10:45)
--- NOTE | 2018-08-12 11:23 | Electrocardiograph Report ---
[place] [id number] Test Date: 2018-08-07 Pat Name: Alaina Dan Department: 109 Room: 2A63 Gender: F Test Tech: : [id number] Requested By: Carli Hough Order Number: [id number] Reading MD: Ermelinda Tellez Measurements Intervals [place] Rate: 95 P: 60 PA: 161 QRS: -24 QRSD: 109 T: 73 QT: 382 QTc: 435 Interpretive Statements SINUS RHYTHM BORDERLINE LEFT AXIS DEVIATION NONSPECIFIC T-WAVE ABNORMALITY Electronically Signed On 08-12-2018 11:22:12 EDT by Ermelinda Tellez
[2018-08-12] MEDS: *HR* OxyCODONE/APAP 5/325 TABLET PO PRN ×2 (12:09)
--- NOTE | 2018-08-12 12:22 | Physician Discharge Referral ---
ExtendedCare Referral Info Transfer To: [facility] Provider in Charge after Transfer: Other (F physician) - Diagnosis (1) Lung cancer Status: Chronic (2) Abdominal pain Status: Chronic (3) Altered mental status Status: Acute (4) Hypophosphatemia Status: Acute (5) Malnutrition Status: Acute (6) Acute cystitis Status: Acute (7) Ischemic colitis Status: Acute (8) ESRD (end stage renal disease) Status: Acute - Transfer Medications Prescriptions: Ciprofloxacin [Cipro] 250 mg PO BID 14 Days #14 tablet Fluconazole [Diflucan] 200 mg PO QPM 4 Days #4 tablet metroNIDAZOLE [Flagyl] 500 mg PO TID 14 Days #42 tablet OxyCODONE/APAP 5/325 [Percocet 5/325 MG] 1 tab PO TID PRN 3 Days #9 tablet PRN Reason: Pain Home Medications: Folic Acid 1 mg PO DAILY 07/10/15 [History] Levothyroxine [Synthroid] 50 mcg PO QAM 07/10/15 [History] Pantoprazole Sodium [Protonix] 40 mg PO BID 07/10/15 [History] Solifenacin Succinate [Vesicare] 10 mg PO DAILY 07/10/15 [History] Aspirin 81 mg PO DAILY #30 tab.chew 02/18/16 [Rx] Metoprolol XL (24 HR) Succ [Toprol Xl] 12.5 mg PO DAILY #30 tab.er.24h 02/18/16 [Rx] Docusate [Colace] 100 mg PO BID 10/14/16 [History] Albuterol Sulfate [Proair Hfa] 2 puff IH Q4H PRN 03/17/17 [History] Atorvastatin [Lipitor] 40 mg PO HS 03/17/17 [History] Clopidogrel [Plavix] 75 mg PO DAILY 05/09/17 [History] Ondansetron ODT [Zofran ODT] 4 mg PO Q8H PRN 05/09/17 [History] Sucralfate [Carafate] 1 gm PO 0730,1630 05/09/17 [History] Folic Acid/Vit Bcomp,C [Renal-Elizabeth Tablet] 0.8 mg PO DAILY 03/01/18 [History] Furosemide [Lasix] 20 mg PO DAILY 03/01/18 [History] Amitriptyline [Elavil] 25 mg PO HS 03/26/18 [History] DULoxetine [Cymbalta] 30 mg PO Q48H 03/26/18 [History] Ergocalciferol (VITAMIN D2) [Drisdol] 50,000 unit PO MO 03/26/18 [History] Insulin ASPART [NovoLOG] 2 - 8 unit SQ TID 03/26/18 [History] Insulin DETEMIR [Levemir] 12 unit SQ QAM 03/26/18 [History] Tamsulosin [Flomax] 0.4 mg PO DAILY 03/26/18 [History] Zolpidem [Ambien] 5 mg PO HS 03/26/18 [History] Lactobacillus Combination No.8 [Adult Probiotic] 1 cap PO DAILY 05/04/18 [ History] Pramipexole Di-HCl [Pramipexole Dihydrochloride] 0.125 mg PO HS 05/04/18 [ History] Promethazine [Phenergan] 25 mg PO TID PRN 05/04/18 [History] Psyllium Husk [Daily Fiber] 0.52 gm PO DAILY 05/04/18 [History] SUMAtriptan Succinate [Imitrex] 6 mg SQ BID PRN 05/04/18 [History] Baclofen [Lioresal] 10 mg PO TID PRN 07/31/18 [History] Lisinopril [Zestril] 20 mg PO DAILY 07/31/18 [History] Mirtazapine [Remeron] 15 mg PO HS 07/31/18 [History] Insulin DETEMIR [Levemir Flextouch] 14 unit SQ QPM 08/06/18 [History] Ciprofloxacin [Cipro] 250 mg PO BID 14 Days #14 tablet 08/12/18 [Rx] Fluconazole [Diflucan] 200 mg PO QPM 4 Days #4 tablet 08/12/18 [Rx] OxyCODONE/APAP 5/325 [Percocet 5/325 MG] 1 tab PO TID PRN 3 Days #9 tablet 08/12 [Rx] metroNIDAZOLE [Flagyl] 500 mg PO TID 14 Days #42 tablet 08/12/18 [Rx] Allergies/Adverse Reactions: 3 Allergy/AdvReac Type Severity Reaction Status Date / Time adhesive tape Allergy Redness of Verified 07/15/18 11:57 Skin latex Allergy Swelling Verified 07/15/18 11:57 of Lip/Tongue/Throat Sulfa (Sulfonamide Allergy Rash Verified 07/15/18 11:57 Antibiotics) - Respiratory Orders Smoking Cessation: Smoking cessation has been advised. For more information, call the [place] Tobacco Quit Line at 5-147-OEUJ-NOW. - Advance Directives Living Will: Yes Code Status: DNR-Arrest/Don't Intubate - Rehabiliation Orders Rehab Orders: Evaluation for Physical Therapy, Evaluation for Occupational Therapy - Diet Orders Mechanical Soft, No Concentrated Sweets, Renal CERTIFICATION: I certify that the transfer of the above named patient to an Extended Care Facility is necessary for the continuing treatment of the diagnosis listed. The above information is true and accurate reflection of patient's current condition. Confidential - Redisclosure prohibited without a patient's written consent.
[2018-08-12] MEDS ORDERED: Mirtazapine 15 MG TABLET PO SCH (21:00)
== END 2018-08-12 15:59 | DRG 689 ==
LOC: EMEROOARM 11:11 → 2ANU 11:11 → SUATTDRO 15:30
PROVIDERS: ADMIT Internal Medicine; ATTEND Internal Medicine

== ENCOUNTER 2018-09-03 09:08 | Inpatient (IN) ==
--- NOTE | 2018-09-03 09:18 | Emergency Department Note ---
Disposition Clinical Impression: Elevated serum creatinine, CKD (chronic kidney disease) requiring chronic dialysis Altered mental status Qualifiers: Altered mental status type: unspecified Qualified Code(s): R41.82 - Altered mental status, unspecified Anemia Qualifiers: Anemia type: unspecified type Qualified Code(s): D64.9 - Anemia, unspecified Disposition: Admitted As Inpatient Condition: Fair Referrals: NONE,PCP [Primary Care Provider] - Forms: ED Satisfaction Letter Time of Disposition: 12:58 General Adult HPI - General Chief complaint: ED Altered Mental Status Stated complaint: Altered Mental Status Time Seen by Provider: 09/03/18 09:14 Source: EMS Mode of arrival: EMS Limitations: altered mental status Nursing Notes Reviewed: Yes Vital Signs Reviewed: Yes - History of Present Illness HPI Narrative: Patient is a 67-year-old female that presents emergency department via EMS from a assisted. EMS reports that she is a dialysis patient but is unclear when she dialyzes. States that she has not been feeling well and is having some altered mentation. States that there is reports of her not acting herself and not being at baseline per EMS reports that the assisted told them. She did report that there was back pain. Patient does not provide any further history due to the altered mentation. - Related Data Home Medications Medication Instructions Recorded Confirmed Folic Acid 1 mg PO DAILY 07/10/15 07/31/18 Levothyroxine [Synthroid] 50 mcg PO QAM 07/10/15 08/06/18 Pantoprazole Sodium [Protonix] 40 mg PO BID 07/10/15 08/06/18 Solifenacin Succinate [Vesicare] 10 mg PO DAILY 07/10/15 08/06/18 Docusate [Colace] 100 mg PO BID 10/14/16 08/06/18 Albuterol Sulfate [Proair Hfa] 2 puff IH Q4H PRN 03/17/17 07/31/18 Atorvastatin [Lipitor] 40 mg PO HS 03/17/17 07/31/18 Clopidogrel [Plavix] 75 mg PO DAILY 05/09/17 08/06/18 Ondansetron ODT [Zofran ODT] 4 mg PO Q8H PRN 05/09/17 07/31/18 Sucralfate [Carafate] 1 gm PO 0730,1630 05/09/17 08/06/18 Folic Acid/Vit Bcomp,C [Renal-Elizabeth 0.8 mg PO DAILY 03/01/18 07/31/18 Tablet] Furosemide [Lasix] 20 mg PO DAILY 03/01/18 08/06/18 Amitriptyline [Elavil] 25 mg PO HS 03/26/18 08/06/18 DULoxetine [Cymbalta] 30 mg PO Q48H 03/26/18 08/06/18 Ergocalciferol (VITAMIN D2) 50,000 unit PO MO 03/26/18 07/31/18 [Drisdol] Insulin ASPART [NovoLOG] 2 - 8 unit SQ TID 03/26/18 08/06/18 Insulin DETEMIR [Levemir] 12 unit SQ QAM 03/26/18 08/06/18 Tamsulosin [Flomax] 0.4 mg PO DAILY 03/26/18 08/06/18 Zolpidem [Ambien] 5 mg PO HS 03/26/18 08/06/18 Lactobacillus Combination No.8 1 cap PO DAILY 05/04/18 07/31/18 [Adult Probiotic] Pramipexole Di-HCl [Pramipexole 0.125 mg PO HS 05/04/18 08/06/18 Dihydrochloride] Promethazine [Phenergan] 25 mg PO TID PRN 05/04/18 07/31/18 Psyllium Husk [Daily Fiber] 0.52 gm PO DAILY 05/04/18 07/31/18 SUMAtriptan Succinate [Imitrex] 6 mg SQ BID PRN 05/04/18 07/31/18 Baclofen [Lioresal] 10 mg PO TID PRN 07/31/18 08/06/18 Lisinopril [Zestril] 20 mg PO DAILY 07/31/18 08/06/18 Mirtazapine [Remeron] 15 mg PO HS 07/31/18 08/06/18 Insulin DETEMIR [Levemir Flextouch] 14 unit SQ QPM 08/06/18 08/06/18 Previous Rx's Medication Instructions Recorded Aspirin 81 mg PO DAILY #30 tab.chew 02/18/16 Metoprolol XL (24 HR) Succ [Toprol 12.5 mg PO DAILY #30 tab.er.24h 02/18/16 Xl] Ciprofloxacin [Cipro] 250 mg PO BID 14 Days #14 tablet 08/12/18 Fluconazole [Diflucan] 200 mg PO QPM 4 Days #4 tablet 08/12/18 OxyCODONE/APAP 5/325 [Percocet 1 tab PO TID PRN 3 Days #9 tablet 08/12/18 5/325 MG] metroNIDAZOLE [Flagyl] 500 mg PO TID 14 Days #42 tablet 08/12/18 Allergies Allergy/AdvReac Type Severity Reaction Status Date / Time adhesive tape Allergy Redness of Verified 07/15/18 11:57 Skin latex Allergy Swelling Verified 07/15/18 11:57 of Lip/Tongue/Throat Sulfa (Sulfonamide Allergy Rash Verified 07/15/18 11:57 Antibiotics) All systems ED: reviewed and negative except as stated. Limitations: ROS unobtainable due to patients medical condition Musculoskeletal: Reports: back pain Past Medical History - Past Medical History Medical history: Reports: arthritis, cancer, coronary artery disease, diabetes, dialysis, GERD, hyperlipidemia, hypertension, myocardial infarction, renal disease, other Surgical history: Reports: appendectomy, cholecystectomy, coronary bypass (CABG), hysterectomy, ureteral stent, other Psychiatric history: Reports: anxiety, depression NURSE INTERN history: Reports: no NURSE INTERN history - Social History Smoking Status: Former smoker Smokeless Tobacco Status: No Alcohol use: Reports: none Drug use: Reports: none Physical Exam - General Limitations: altered mental status General appearance: alert, in no apparent distress - Head Head exam: atraumatic, normocephalic - Eye Eye exam: Present: normal appearance, EOMI - Neck Neck exam: Present: normal inspection, full ROM, trachea midline - Respiratory Respiratory exam: Present: normal lung sounds bilaterally. Absent: respiratory distress, wheezes - Cardiovascular Cardiovascular exam: Present: regular rate, normal rhythm, normal heart sounds, +S1, +S2 - Abdominal Exam Abdominal exam: Present: soft, Non-Tender, normal bowel sounds - Neurological Exam Neurological exam: Present: alert. Absent: oriented X3 - Psychiatric Psychiatric exam: Present: normal affect, normal mood - Skin Skin exam: Present: warm, dry, intact Course - Reevaluation(s) Reevaluation #1: Son is now at bedside stating that she seems to be more confused than normal. He states that she does have a history of possible bowel. This is a new piece of history that we were not able to obtain initially from the medical record or the patient. The patient is more alert at this time but is tearful stating that she is scared but is unsure why she is scared. Patient denies having any pain at this time. On reexamination of her belly L that she has more alert she said it is painful to palpation throughout the abdomen. We will obtain a CT scan of the abdomen and pelvis rule out possible intra-abdominal pathology. The patient will likely need admission for further evaluation and management of her altered mentation. Time: 11:25 Vital Signs Temperature 98.2 F 09/03/18 09:12 Pulse Rate 92 09/03/18 09:12 Respiratory Rate 18 09/03/18 09:12 Blood Pressure 176/105 09/03/18 09:12 O2 Sat by Pulse Oximetry 9 09/03/18 09:12 Temperature 98.2 F 09/03/18 09:12 Pulse Rate 93 09/03/18 12:03 Respiratory Rate 20 09/03/18 12:03 Blood Pressure 179/108 09/03/18 12:03 O2 Sat by Pulse Oximetry 98 09/03/18 12:03 Oxygen Delivery Oxygen Delivery Room Air Medical Decision Making - MDM Narrative Medical decision making narrative: Due the patient was anything to the emergency department with concern for altered mentation we will obtain basic laboratory testing and a CT of the patient's head and cervical spine. Lab for testing is relatively unremarkable at the patient's baseline. She did have an elevated creatinine however this is at her baseline and a mild anemia that is chronic. The CT of the head and cervical spine were negative for acute findings. The chest x-ray does show some bibasilar atelectasis that is mildly worsened per radiology read. The patient does not have a urinary tract infection. Patient's UDS was negative. Patient does not meet surgeries or sepsis criteria at this time. She is not tachycardic or febrile. There is no evidence of infection there is identifiable on exam, laboratory testing or imaging. CT scan of the abdomen and pelvis do not show any acute abnormalities. Due to the patient having a change in mentation at this time called and spoke with the admitting hospitalist and she is except the patient to their service. Patient be admitted to the hospital does not for acute altered mentation. - Medical Records Medical records reviewed: Yes I reviewed the patient's medical records. - Lab Data Lab results reviewed: Yes I reviewed the patient's lab results. Result diagrams: 09/03/18 09:30 09/03/18 09:30 Lab Results 09/03/18 09/03/18 09/03/18 Range/Units 09:20 09:30 09:30 WBC 6.1 (4.3-11.1) K/mcL RBC 3.60 L (3.82-4.97) M/mcL Hgb 11.1 L (11.5-15.4) g/dL Hct 34.8 L (35.3-44.9) % MCV 96.7 (83.0-100.0) fL MCH 30.8 (28.0-33.3) pg MCHC 31.9 (31.6-35.5) g/dL RDW 14.6 H (11.5-14.5) % Plt Count 248 (140-400) K/mcL MPV 9.9 (9.4-12.4) fL Immature Gran % 0.3 (0-4) % Seg Neutrophils % 70.6 % Lymphocytes % 16.1 % Monocytes % 9.9 % Eosinophils % 2.6 % Basophils % 0.5 % Neutrophils # 4.3 (1.6-8.9) K/mcL Lymphocytes # 1.0 (0.6-4.6) K/mcL Monocytes # 0.6 (0.0-1.3) K/mcL Eosinophils # 0.2 (0.0-0.6) K/mcL Basophils # 0.0 (0.0-0.2) K/mcL PT 12.3 H (9.4-12.1) Seconds INR 1.1 Sodium (136-145) mEq/L Potassium (3.5-5.1) mEq/L Chloride (98-107) mEq/L Carbon Dioxide (23-29) mEq/L BUN (8-23) mg/dL Creatinine (0.60-1.20) mg/dL Est GFR ( Amer) (> 60) Est GFR (Non-Af Amer) (> 60) BUN/Creatinine Ratio (6-26) Glucose (70-105) mg/dL Calculated Osmolality (280-300) Lactic Acid (0.5-2.2) mmol/L Calcium (8.6-10.3) mg/dL Total Bilirubin (0.3-1.0) mg/dL Direct Bilirubin (0.0-0.2) mg/dL Indirect Bilirubin (0.0-1.2) mg/dL AST (13-39) Units/L ALT (7-52) Units/L Alkaline Phosphatase (34-104) Units/L Troponin I (< 0.04) ng/mL Serum Total Protein (6.4-8.9) g/dL Albumin (3.5-5.7) g/dL Globulin (2.4-3.5) g/dL Albumin/Globulin Ratio (1.1-2.2) TSH (0.340-5.600) mcIU/mL Ur Specimen Adequacy Urine Color (Yellow) Urine Clarity (Clear) Urine pH (5.0-8.0) pH Units Ur Specific [place] (1.010-1.025) Urine Protein (Neg-Trace) mg/dL Urine Glucose (UA) (Normal) mg/dL Urine Ketones (Negative) mg/dL Urine Blood (Negative) Urine Nitrite (Negative) Urine Bilirubin (Negative) Urine Urobilinogen (Normal) mg/dL Ur Leukocyte Esterase (Negative) Urine Microscopic RBC (0-3) per hpf Urine Microscopic WBC (0-3) per hpf Ur Squamous Epith Cells (None-Few) per lpf Urine Bacteria (None-Few) per hpf Hyaline Casts (None-Few) per lpf Ur Culture Indicated? (NO) Urine Opiates Screen Negative (Djsgvg=919) ng/mL Ur Barbiturates Screen Negative (Iomwhw=436) ng/mL Ur Phencyclidine Scrn Negative (Cutoff=25) ng/mL Ur Amphetamines Screen Negative (Ijcacd=6896) ng/mL U Benzodiazepines Scrn Negative (Vtypaw=742) ng/mL Urine Cocaine Screen Negative (Cutoff= 300) ng/mL U Marijuana (THC) Screen Negative (Cutoff = 50) ng/mL Ur Drug Screen Interp See Below Ethyl Alcohol (Less than 10) mg/dL 09/03/18 09/03/18 09/03/18 Range/Units 09:30 09:31 10:53 WBC (4.3-11.1) K/mcL RBC (3.82-4.97) M/mcL Hgb (11.5-15.4) g/dL Hct (35.3-44.9) % MCV (83.0-100.0) fL MCH (28.0-33.3) pg MCHC (31.6-35.5) g/dL RDW (11.5-14.5) % Plt Count (140-400) K/mcL MPV (9.4-12.4) fL Immature Gran % (0-4) % Seg Neutrophils % % Lymphocytes % % Monocytes % % Eosinophils % % Basophils % % Neutrophils # (1.6-8.9) K/mcL Lymphocytes # (0.6-4.6) K/mcL Monocytes # (0.0-1.3) K/mcL Eosinophils # (0.0-0.6) K/mcL Basophils # (0.0-0.2) K/mcL PT (9.4-12.1) Seconds INR Sodium 136 (136-145) mEq/L Potassium 3.3 L (3.5-5.1) mEq/L Chloride 100 (98-107) mEq/L Carbon Dioxide 27 (23-29) mEq/L BUN 33 H (8-23) mg/dL Creatinine 2.66 H (0.60-1.20) mg/dL Est GFR ( Amer) 22 L (> 60) Est GFR (Non-Af Amer) 18 L (> 60) BUN/Creatinine Ratio 12 (6-26) Glucose 95 (70-105) mg/dL Calculated Osmolality 289 (280-300) Lactic Acid 1.0 (0.5-2.2) mmol/L Calcium 9.3 (8.6-10.3) mg/dL Total Bilirubin 0.5 (0.3-1.0) mg/dL Direct Bilirubin 0.2 (0.0-0.2) mg/dL Indirect Bilirubin 0.3 (0.0-1.2) mg/dL AST 24 (13-39) Units/L ALT 23 (7-52) Units/L Alkaline Phosphatase 136 H (34-104) Units/L Troponin I < 0.03 (< 0.04) ng/mL Serum Total Protein 6.9 (6.4-8.9) g/dL Albumin 3.5 (3.5-5.7) g/dL Globulin 3.4 (2.4-3.5) g/dL Albumin/Globulin Ratio 1.0 L (1.1-2.2) TSH 0.765 (0.340-5.600) mcIU/mL Ur Specimen Adequacy See below A Urine Color Yellow (Yellow) Urine Clarity Clear (Clear) Urine pH 7.0 (5.0-8.0) pH Units Ur Specific [place] < 1.005 L (1.010-1.025) Urine Protein 100 H (Neg-Trace) mg/dL Urine Glucose (UA) Normal (Normal) mg/dL Urine Ketones Negative (Negative) mg/dL Urine Blood Small H (Negative) Urine Nitrite Negative (Negative) Urine Bilirubin Negative (Negative) Urine Urobilinogen Normal (Normal) mg/dL Ur Leukocyte Esterase Large H (Negative) Urine Microscopic RBC 0-3 (0-3) per hpf Urine Microscopic WBC 5-15 H (0-3) per hpf Ur Squamous Epith Cells Many H (None-Few) per lpf Urine Bacteria None Seen (None-Few) per hpf Hyaline Casts None Seen (None-Few) per lpf Ur Culture Indicated? NO. A (NO) Urine Opiates Screen (Oaplpb=205) ng/mL Ur Barbiturates Screen (Taatbz=998) ng/mL Ur Phencyclidine Scrn (Cutoff=25) ng/mL Ur Amphetamines Screen (Cyvotw=8993) ng/mL U Benzodiazepines Scrn (Wbpuvw=651) ng/mL Urine Cocaine Screen (Cutoff= 300) ng/mL U Marijuana (THC) Screen (Cutoff = 50) ng/mL Ur Drug Screen Interp Ethyl Alcohol < 10 (Less than 10) mg/dL - Radiology Data Radiology results reviewed: Yes I reviewed the patient's radiology results. Chest X-Ray 09/03/18 09:14 IMPRESSION: Bibasilar airspace disease, mildly increased. D/ / Mykel Gallegos MD / Mykel Gallegos MD Interpreting Provider: Mykel Gallegos MD Cervical Spine CT 09/03/18 09:15 IMPRESSION: No acute intracranial abnormality. No acute abnormality of the cervical spine. D/ / Val Zimmer Cha, MD / Val Zimmer Cha, MD Interpreting Provider: Val Zimmer Cha, MD Head CT 09/03/18 09:15 IMPRESSION: No acute intracranial abnormality. No acute abnormality of the cervical spine. D/ / Val Zimmer Cha, MD / Val Zimmer Cha, MD Interpreting Provider: Val Zimmer Cha, MD - EKG Data EKG #1 EKG attestation: Yes I reviewed and interpreted this EKG. EKG results narrative: EKG shows a sinus rhythm rate of 93 bpm, IN interval of 174, QRS duration of 114, QTC of 493. There is no evidence of STEMI on EKG. This is compared to previous EKG on 08/07/18 which showed a sinus rhythm. Attestation Statement - Attestation Attestation: Patient was seen with resident physician. I reviewed the history, physical, assessment and plan, and agree with the findings. I also personally evaluated this patient and had [id number] time with this patient. 67-year-old female presents to the emergency department with a chief complaint of altered mental status. Patient is usually ambulatory and at a care facility, but she is no longer ambulatory is not answering questions the way she usually does. This history is from EMS who communicated with the assisted staff. Patient herself is not able to provide any history whatsoever. She is able to follow some commands but makes very little verbal communication. Review of systems unable secondary to patient condition. Physical exam vital signs are stable. ENT is largely unremarkable she has a slightly larger pupil on the right side but also appears she has a cataract or another abnormality that could be causing that. Extraocular motions are intact and cranial nerves otherwise appear okay. Heart is regular rhythm and rate. Lungs clear. Abdomen soft is nontender. Extremities are unremarkable. Neurologically patient is awake she can follow some commands she does not seem to have any focal weakness, but she is not verbally communicating well. I do not know what her baseline is. Skin some bruising no obvious rashes bruising appears to be secondary to medication and dialysis. And psych is unable. ED course. Unclear when her last dialysis treatment is. We will do workup to include a head CT scan next CT scan and lab testing also get an EKG to try and determine what the cause of her mental status changes. A fairly comprehensive workup did not produce immediate answer. She had some leukocytes in her urine, and its unclear what the significance of that relationship to her symptoms are at this point. Labs were essentially at baseline. CT scans of the head and abdomen did not reveal any acute abnormalities. Patient's mental status continued to be altered from where she usually is. We will need to admit the patient for further evaluation and treatment based on initial presentation. Hospitalist service was notified and agreed to accept the patient. Agree with resident physician assessment and plan.
[2018-09-03 09:56] LABS: Basophils % 0.5 %; Eosinophils # 0.2 K/mcL (0.0-0.6); Eosinophils % 2.6 %; Hematocrit 34.8 % (35.3-44.9); Hemoglobin 11.1 g/dL (11.5-15.4); Immature Granulocytes % 0.3 % (0-4); Lymphocytes % 16.1 %; Mean Corpuscular HGB Conc 31.9 g/dL (31.6-35.5); Mean Corpuscular Hemoglobin 30.8 pg (28.0-33.3); Mean Corpuscular Volume 96.7 fL (83.0-100.0); Mean Platelet Volume 9.9 fL (9.4-12.4); Monocytes # 0.6 K/mcL (0.0-1.3); Monocytes % 9.9 %; Neutrophils # 4.3 K/mcL (1.6-8.9); Platelet Count 248 K/mcL (140-400); Red Cell Distribution Width 14.6 % (11.5-14.5); Segmented Neutrophils % 70.6 %
[2018-09-03 10:03] LABS: INR 1.1; Prothrombin Time 12.3 Seconds (9.4-12.1)
[2018-09-03 10:04] LABS: Bilirubin,Urine Negative (Negative); Blood,Urine Small (Negative); Clarity,Urine Clear (Clear); Color,Urine Yellow (Yellow); Glucose,Urine (UA) Normal (Normal); Ketones,Urine Negative (Negative); Leukocyte Esterase,Urine Large (Negative); Nitrite,Urine Negative (Negative); Protein,Urine 100 mg/dL (Neg-Trace); Specific Gravity,Urine < 1.005 (1.010-1.025); Urobilinogen,Urine Normal (Normal)
[2018-09-03 10:06] LABS: Bacteria,Urine None Seen per hpf (None-Few); Hyaline Casts,Urine None Seen per lpf (None-Few); RBC,Urine 0-3 per hpf (0-3); Squamous Epithelial Cell,Urine Many per lpf (None-Few)
[2018-09-03 10:14] LABS: Troponin I < 0.03 ng/mL (< 0.04)
[2018-09-03 10:15] LABS: Alanine Aminotransferase 23 Units/L (7-52); Albumin 3.5 g/dL (3.5-5.7); Alkaline Phosphatase 136 Units/L (34-104); Aspartate Amino Transferase 24 Units/L (13-39); BUN/Creatinine Ratio 12 (6-26); Bilirubin,Direct 0.2 mg/dL (0.0-0.2); Bilirubin,Indirect 0.3 mg/dL (0.0-1.2); Bilirubin,Total 0.5 mg/dL (0.3-1.0); Blood Urea Nitrogen 33 mg/dL (8-23); Calcium 9.3 mg/dL (8.6-10.3); Carbon Dioxide 27 mEq/L (23-29); Chloride 100 mEq/L (98-107); Ethanol < 10 mg/dL (Less than 10); Globulin 3.4 g/dL (2.4-3.5); Glucose 95 mg/dL (70-105); Osmolality,Calculated 289 (280-300); Potassium 3.3 mEq/L (3.5-5.1); Sodium 136 mEq/L (136-145); Total Protein 6.9 g/dL (6.4-8.9); eGFR For Non-African Americans 18 (> 60)
[2018-09-03 10:30] LABS: Amphetamine Screen,Urine Negative ng/mL (Cutoff=1000); Barbiturate Screen,Urine Negative ng/mL (Cutoff=200); Benzodiazepines Screen,Urine Negative ng/mL (Cutoff=200); Cannabinoid Screen,Urine Negative ng/mL (Cutoff = 50); Cocaine Screen,Urine Negative ng/mL (Cutoff= 300); Opiate Screen,Urine Negative ng/mL (Cutoff=300); Phencyclidine Screen,Urine Negative ng/mL (Cutoff=25)
[2018-09-03 11:57] LABS: Thyroid Stimulating Hormone 0.765 mcIU/mL (0.340-5.600)
[2018-09-03] MEDS ORDERED: cefTRIAXone 1,000 MG in Water for inj. (sterile) 20 ML 10 ML IVP ONE (13:01)
[2018-09-03] MEDS ORDERED: 0.9 % Sodium Chloride 1,000 ML IVC SCH (14:30)
[2018-09-03] MEDS ORDERED: Naloxone 0.4 MG/ML INJ IVP PRN ×2 (14:30→16:25)
--- NOTE | 2018-09-03 14:39 | Internal Med History&Physical ---
Date of Encounter: 09/03/18 Time of Encounter: 14:37 Internal Medicine - H&P: HPI Chief complaint: abdominal pain, encephalopathy Admitted From: Home Plans for Post Hospital Care: Home History of present illness: Ms. Dan is a 67 year old female with a PMH of arthritis, cancer, coronary artery disease, diabetes, dialysis, GERD, hyperlipidemia, hypertension, myocardial infarction, and ESRD (due to altered mental state unable to determine which days she gets dialysis). She presents to [facility] from an ECF with changes and altered mental status. Unable to obtain information from patient as she has had a altered mental state. Son at bedside reports the ECF notified him that his mother was becoming confused and having intractable abdominal pain. Due to altered mental state the patient is unable to confirm or deny any aggravating or alleviating factors. She is however able to describe the abdominal pain as mo stly left-sided with radiation to the left flank and described as 10/10 and sharp. She was recently seen and treated at [facility] for a urinary tract infection, right hydronephrosis and ischemic colitis. Workup in the ED reveals an elevated creatinine however this is a little better than her baseline. Additionally, lab testing is relatively unremarkable. She did have CT imaging of the head and cervical spine which were negative for acute findings. Chest x-ray shows mild bibasilar atelectasis, however there are no opacifications or acute cardiopulmonary abnormalities. The patient's UDS was negative, urinalysis not wholly convincing for urinary tract infection. She does meet to SIRS criteria with a pulse greater than 90 and respiratory rate greater than 18 however does not appear toxic and is afebrile without leukocytosis. No obvious cause of infection present. However, CT of abdomen and pelvis did reveal persistent thickening of the urinary bladder, development of left-sided hydrour eteronephrosis with ureteral narrowing of the ureterovesicular junction and nonspecific edema of the sigmoid colon with thickening. Given her presentation with an acute encephalopathic state she is being admitted for observation for further workup and monitoring. With recent urinary tract infection and a UA positive for a large amount of leukocyte Estrace several. Given continued edema and thickening of sigmoid colon I will also add Flagyl. Blood cultures sent. She will require consult to nephrology for management of ESRD, and will require consult from urology regarding left sided hydroureteronephrosis. Past Med Surg Social Fam HX - Past Medical History Medical history: arthritis, cancer, coronary artery disease, diabetes, dialysis, GERD, hyperlipidemia, hypertension, myocardial infarction, renal disease, other Additional medical history: neuropathy, insomnia Psychiatric history: anxiety, depression - Past Surgical History Surgical History: appendectomy, cholecystectomy, coronary bypass (CABG), hysterectomy, ureteral stent, other Additional surgical history: colonoscopy - egd - tubal ligation - kidney stent - Social History Smoking Status: Former smoker Smokeless Tobacco Status: No Alcohol use: none Drug use: none - Family History Mother Living Status: Hx Family Endocrine Disorder: (DM) Father Adopted: No Hx Family Cardiac Disorders: Yes ("heart troubles") Hx Family Cancer: Yes (Prostate cancer) Hx Family Endocrine Disorder: Yes (DM) Brother Hx Family Cardiac Disorders: Yes (CAD) Hx Family Cancer: Yes (lung cancer) Internal Medicine - H&P: Meds Folic Acid 1 mg PO DAILY 07/10/15 [History] Levothyroxine [Synthroid] 50 mcg PO QAM 07/10/15 [History] Pantoprazole Sodium [Protonix] 40 mg PO BID 07/10/15 [History] Solifenacin Succinate [Vesicare] 10 mg PO DAILY 07/10/15 [History] Aspirin 81 mg PO DAILY #30 tab.chew 02/18/16 [Rx] Metoprolol XL (24 HR) Succ [Toprol Xl] 12.5 mg PO DAILY #30 tab.er.24h 02/18/16 [Rx] Docusate [Colace] 100 mg PO BID 10/14/16 [History] Albuterol Sulfate [Proair Hfa] 2 puff IH Q4H PRN 03/17/17 [History] Atorvastatin [Lipitor] 40 mg PO HS 03/17/17 [History] Clopidogrel [Plavix] 75 mg PO DAILY 05/09/17 [History] Ondansetron ODT [Zofran ODT] 4 mg PO Q8H PRN 05/09/17 [History] Sucralfate [Carafate] 1 gm PO 0730,1630 05/09/17 [History] Folic Acid/Vit Bcomp,C [Renal-Elizabeth Tablet] 0.8 mg PO DAILY 03/01/18 [History] Furosemide [Lasix] 20 mg PO DAILY 03/01/18 [History] Amitriptyline [Elavil] 25 mg PO HS 03/26/18 [History] DULoxetine [Cymbalta] 30 mg PO Q48H 03/26/18 [History] Ergocalciferol (VITAMIN D2) [Drisdol] 50,000 unit PO MO 03/26/18 [History] Insulin ASPART [NovoLOG] 2 - 8 unit SQ TID 03/26/18 [History] Insulin DETEMIR [Levemir] 12 unit SQ QAM 03/26/18 [History] Tamsulosin [Flomax] 0.4 mg PO DAILY 03/26/18 [History] Zolpidem [Ambien] 5 mg PO HS 03/26/18 [History] Lactobacillus Combination No.8 [Adult Probiotic] 1 cap PO DAILY 05/04/18 [H istory] Pramipexole Di-HCl [Pramipexole Dihydrochloride] 0.125 mg PO HS 05/04/18 [History] Promethazine [Phenergan] 25 mg PO TID PRN 05/04/18 [History] Psyllium Husk [Daily Fiber] 0.52 gm PO DAILY 05/04/18 [History] SUMAtriptan Succinate [Imitrex] 6 mg SQ BID PRN 05/04/18 [History] Baclofen [Lioresal] 10 mg PO TID PRN 07/31/18 [History] Lisinopril [Zestril] 20 mg PO DAILY 07/31/18 [History] Mirtazapine [Remeron] 15 mg PO HS 07/31/18 [History] Insulin DETEMIR [Levemir Flextouch] 14 unit SQ QPM 08/06/18 [History] Ciprofloxacin [Cipro] 250 mg PO BID 14 Days #14 tablet 08/12/18 [Rx] Fluconazole [Diflucan] 200 mg PO QPM 4 Days #4 tablet 08/12/18 [Rx] OxyCODONE/APAP 5/325 [Percocet 5/325 MG] 1 tab PO TID PRN 3 Days #9 tablet 08/12/18 [Rx] metroNIDAZOLE [Flagyl] 500 mg PO TID 14 Days #42 tablet 08/12/18 [Rx] Allergy/AdvReac Type Severity Reaction Status Date / Time adhesive tape Allergy Redness of Verified 07/15/18 11:57 Skin latex Allergy Swelling Verified 07/15/18 11:57 of Lip/Tongue/Throat Sulfa (Sulfonamide Allergy Rash Verified 07/15/18 11:57 Antibiotics) ROS unobtainable: due to mental status All Systems PM: A 10-system review of systems was performed and is negative for pertinent findings except as documented above in the HPI. - Constitutional Vitals: Temp Pulse Resp BP Pulse Ox 98.2 F 85 20 181/67 98 09/03/18 09:12 09/03/18 14:32 09/03/18 14:32 09/03/18 14:32 09/03/18 14:32 General appearance: Present: A&O X 1 Exam: PHYSICAL EXAMINATION: GENERAL: The patient is an elderly female who appears to be in a confused state. She is in moderate distress and is alert to self only HEENT: Head is normocephalic and atraumatic. Extraocular muscles are intact. Pupils are equal, round, and reactive to light and accommodation. NECK: Supple. No carotid bruits. No lymphadenopathy or thyromegaly. LUNGS: Clear to auscultation B/L AP and L. HEART: Regular rate and rhythm, S1, S2 without murmur. ABDOMEN: Soft, diffuse abdominal tenderness however, tenderness is greater at the left upper quadrant. Positive bowel sounds and she remains non-distended. No hepatosplenomegaly was noted. BACK: c/o tenderness to palpation of left flank EXTREMITIES: Without any cyanosis, clubbing, rash, lesions or edema. NEUROLOGIC: With altered mental state patient unable to participate in neuro exam. She is without facial droop or slurred speech and is moving all 4 limbs independently, without apparent drift or motor deficits PSYCHIATRIC: Confused and anxious SKIN: No ulceration or induration present. Internal Med - H&P Results - Labs CBC & Chem 7: 09/03/18 09:30 09/03/18 09:30 Labs: Short CBC 09/03/18 Range/Units 09:30 WBC 6.1 (4.3-11.1) K/mcL Hgb 11.1 L (11.5-15.4) g/dL Hct 34.8 L (35.3-44.9) % Plt Count 248 (140-400) K/mcL Neutrophils # 4.3 (1.6-8.9) K/mcL BMP 11/04/18 09:30 Sodium 136 Potassium 3.3 L Chloride 100 Carbon Dioxide 27 BUN 33 H Creatinine 2.66 H Glucose 95 Calcium 9.3 Cardiac Enzymes 09/03/18 Range/Units 09:30 Troponin I < 0.03 (< 0.04) ng/mL Liver Function 09/03/18 Range/Units 09:30 Total Bilirubin 0.5 (0.3-1.0) mg/dL Direct Bilirubin 0.2 (0.0-0.2) mg/dL AST 24 (13-39) Units/L ALT 23 (7-52) Units/L Alkaline Phosphatase 136 H (34-104) Units/L Albumin 3.5 (3.5-5.7) g/dL Urine 09/03/18 Range/Units 09:31 Urine Color Yellow (Yellow) Urine Clarity Clear (Clear) Urine pH 7.0 (5.0-8.0) pH Units Ur Specific Cisco < 1.005 L (1.010-1.025) Urine Protein 100 H (Neg-Trace) mg/dL Urine Glucose (UA) Normal (Normal) mg/dL - EKG Data -: EKG Interpreted by Myself EKG shows normal: sinus rhythm Rate: normal - EKG Data Prior EKG available for review: yes When compared to previous EKG: there is no significant change Interpretation IM: normal EKG EKG comments: EKG shows normal sinus rhythm rate of [address]-T wave changes concerning for ischemia 09/03/18 14:47 - Impressions ITS Impressions Chest X-Ray 09/03/18 09:14 IMPRESSION: Bibasilar airspace disease, mildly increased. D/ / Mykel Gallegos MD / Mykel Gallegos MD Interpreting Provider: Mykel Gallegos MD Cervical Spine CT 09/03/18 09:15 IMPRESSION: No acute intracranial abnormality. No acute abnormality of the cervical spine. D/ / Val Zimmer Cha, MD / Val Zimmer Cha, MD Interpreting Provider: Val Zimmer Cha, MD Head CT 09/03/18 09:15 IMPRESSION: No acute intracranial abnormality. No acute abnormality of the cervical spine. D/ / Val Zimmer Cha, MD / Val Zimmer Cha, MD Interpreting Provider: Val Zimmer Cha, MD Abdomen/Pelvis CT 09/03/18 11:25 IMPRESSION: Persistent wall thickening of the urinary bladder. Interval development of left-sided hydroureteronephrosis. No obstructing calculus identified, however the distal ureter appears narrowed at the ureterovesicular junction. Nonspecific wall thickening and edema of the sigmoid colon, stable.. Right-sided ureteral stent ureteral stent with stable hydronephrosis. Small right pleural effusion. D/ / Robel Whittington MD / Robel Whittington MD Interpreting Provider: Robel Whittignton MD - Assessment and plan (1) Encephalopathy acute Current Visit: Yes Status: Acute Assessment and plan: Acute encephalopathy of unclear etiology Recent admission in early July for the same At that time found to have UTI, right hydronephrosis and ischemic colitis Underwent right ureteral stent placement at that time and has had a recent exchange of right ureteral stent During last admission She was treated with Rocephin and Flagyl and mental status returned to baseline She was to discharge on a 14 day course of Cipro and Flagyl and follow up with GI She presents today with an altered mental state, abdominal pain radiating to the left flank which occurred approximately 24 hours ago and has been progressing in intensity CT abdomen and pelvis showing persistent wall thickening of urinary bladder and trouble development of left-sided hydroureteronephrosis without obstruction; does show narrowing of the distal ureter at ureterovesicular junction Nonspecific thickening and edema of the sigmoid colon Also found but stable UA in the ED not overly convincing for urinary tract infection however, given current condition and above findings on CT. Continue to treat as such with Rocephin Adding Flagyl as CT of abdomen still showing edema of sigmoid colon Blood cultures pending The patient is meeting to service criteria with tachycardia and tachypnea however is afebrile, does not have hypertension or leukocytosis Continue to monitor overnight Repeat labs in the morning Consult to urology-call in the morning Admit for observation (2) Altered mental status Current Visit: Yes Status: Acute Assessment and plan: As above From [facility] services engineer consult plan to return to [facility] when mental status back to [facility] anton[facility]gas Qualifiers: Altered mental status type: unspecified Qualified Code(s): R41.82 - Altered mental status, unspecified (3) ESRD (end stage renal disease) on dialysis Current Visit: Yes Status: Chronic Assessment and plan: History of ESRD, dialysis dependent Still able to produce a small amount of urine however Renal function stable and a little better than baseline SER 2.66, GFR 18 (4) Abdominal pain Current Visit: No Status: Acute Assessment and plan: Generalized abdominal pain worse in left upper quadrant with radiation to left flank CT abdomen and pelvis showing cystitis and left hydroureteronephrosis with narrowing of distal ureter at ureterovesicular junction Plan as above [place] for pain management Qualifiers: Abdominal location: generalized Qualified Code(s): R10.84 - Generalized abdominal pain (5) Back pain Current Visit: No Status: Acute Qualifiers: Back pain location: low back pain Chronicity: unspecified Back pain laterality: midline Sciatica presence: without sciatica Qualified Code(s): M54.5 - Low back pain (6) Colitis Current Visit: No Status: Acute Assessment and plan: CT imaging stable compared to prior However given diffuse abdominal pain and recent ischemic colitis I will continue to treat with metronidazole for now (7) Cystitis Current Visit: No Status: Acute (8) Diabetes mellitus type 2 in nonobese Current Visit: No Status: Acute Assessment and plan: blood glucose stable at this time not eating d/t AMS Q6hr accucheck will refrain from adding sliding scale for now consider adding SSIC should hyperglycemia develop (9) Dysuria Current Visit: No Status: Acute (10) Hydronephrosis Current Visit: No Status: Acute Assessment and plan: Consult urology Call in the Morning Qualifiers: Hydronephrosis type: unspecified Qualified Code(s): N13.30 - Unspecified hydronephrosis (11) Hypokalemia Current Visit: No Status: Acute Assessment and plan: Mild hypokalemia with potassium of 3.3 Continue to monitor, replete as necessary (12) Nausea Current Visit: No Status: Acute (13) CAD (coronary artery disease) Current Visit: No Status: Chronic Assessment and plan: Continue cardiac medications when confirmed Qualifiers: Coronary Disease-Associated Artery/Lesion type: unspecified vessel or lesion type [place] vs. transplanted heart: unspecified whether [place] or transplanted heart Associated angina: angina presence unspecified Qualified Code(s): I25.10 - Atherosclerotic heart disease of [place] coronary artery without angina pectoris (14) Hypertension Current Visit: No Status: Chronic Assessment and plan: When necessary hydralazine for SBP greater than 160 Resume home anti-HTN medications Qualifiers: Hypertension type: unspecified Qualified Code(s): I10 - Essential (primary) hypertension (15) DVT prophylaxis Current Visit: No Status: Acute Assessment and plan: Subcutaneous heparin - Time Spent With Patient Total time spent is greater than 50% in coordination of care (as documented) at patient's floor/unit and/or counseling patient: less than 15 minutes
[2018-09-03] MEDS: *HR* Heparin 5,000 UNIT/ML VIAL SQ SCH (17:43)
[2018-09-03] MEDS: MetroNIDAZOLE 500 MG/100 ML 500 MG/100 ML BAG IVPB SCH (17:43)
[2018-09-03] MEDS: *HR* HYDROcodone/Acet 5/325 mg TABLET PO PRN (18:11)
[2018-09-04] MEDS: MetroNIDAZOLE 500 MG/100 ML 500 MG/100 ML BAG IVPB SCH ×2 (01:05→08:28)
[2018-09-04 04:52] LABS: Basophils % 0.6 %; Eosinophils # 0.1 K/mcL (0.0-0.6); Hematocrit 36.3 % (35.3-44.9); Hemoglobin 11.6 g/dL (11.5-15.4); Immature Granulocytes % 0.4 % (0-4); Lymphocytes # 0.8 K/mcL (0.6-4.6); Lymphocytes % 11.4 %; Mean Corpuscular Hemoglobin 30.9 pg (28.0-33.3); Mean Corpuscular Volume 96.5 fL (83.0-100.0); Mean Platelet Volume 9.9 fL (9.4-12.4); Monocytes # 0.6 K/mcL (0.0-1.3); Monocytes % 8.9 %; Neutrophils # 5.6 K/mcL (1.6-8.9); Platelet Count 243 K/mcL (140-400); Red Blood Count 3.76 M/mcL (3.82-4.97); Red Cell Distribution Width 14.7 % (11.5-14.5); Segmented Neutrophils % 77.7 %
[2018-09-04 05:12] LABS: Calcium 8.9 mg/dL (8.6-10.3); Potassium 3.3 mEq/L (3.5-5.1)
[2018-09-04] MEDS: *HR* Heparin 5,000 UNIT/ML VIAL SQ SCH (06:17)
[2018-09-04] MEDS ORDERED: Lisinopril 20 MG TABLET PO SCH (09:00)
[2018-09-04] MEDS ORDERED: Metoprolol XL (24 HR) Succ 25 MG TAB.ER.24H PO SCH (09:00)
[2018-09-04] MEDS ORDERED: cefTRIAXone 1,000 MG in Water for inj. (sterile) 20 ML 10 ML IVP SCH (09:00)
[2018-09-04] MEDS ORDERED: Aspirin 81 MG TAB.CHEW PO SCH (09:00)
[2018-09-04] MEDS ORDERED: 0.9 % Sodium Chloride 250 ML IVC PRN ×2 (10:59→18:36)
[2018-09-04] MEDS ORDERED: 0.9 % Sodium Chloride 1,000 ML PRIME SCH ×2 (11:00→18:36)
--- NOTE | 2018-09-04 11:07 | Internal Med Progress Note ---
Hospitalist Progress Note - Encounter Date of Encounter: 09/04/18 Time of Encounter: 11:21 - Subjective Interval History: Patient seen and evaluated at bedside. alert only to person, and place. As per family members patient lives on an assisted living facility and is independent on her activities of daily living. reports abdominal pain, but denies nausea, vomiting or chest pain. - Exam Vitals: Temp Pulse Resp BP Pulse Ox 98.5 F 93 18 177/82 100 09/04/18 08:23 09/04/18 08:23 09/04/18 08:23 09/04/18 08:23 09/04/18 08:23 Exam: General: Alert and oriented x2. In mild distress due to abdominal pain. Skin: Normal color, no rash, no lesions. HEENT: EOM, pupils equal, round and reactive. Cardiovascular: RRR, Normal S1 & S2, no rubs, murmurs or gallops. Lungs: Clear to auscultation bilaterally, no wheezes or crackles. Abdomen: Soft, tender to superficial palpation in the LLQ. NABS in all 4 quadrants Extremities: No deformity, no edema or tenderness, no joint swelling or clubbing. Neurological: CN II-XII intact. Anisocoria Rest of the physical exam is non contributory - Assessment and Plan (1) Colitis Current Visit: No Status: Acute Assessment and Plan: CT/CT abd pelvis wo no iv no oral IMPRESSION: Nonspecific wall thickening and edema of the sigmoid colon, stable. Plan started on Flaggyl will consider GI consult Clear liquid diet, advance as tolerated (2) Cystitis Current Visit: No Status: Acute Assessment and Plan: CT abd/Pelvis: Persistent wall thickening of the urinary bladder. Plan Being covered with empiric IV antibiotics Onceftriaxone 2mg/IV daily b/c sent (3) Hydronephrosis Current Visit: No Status: Acute Assessment and Plan: CT Abd and Pelvis: Interval development of left-sided hydroureteronephrosis. No obstructing calculus identified, however the distal ureter appears narrowed at the ureterovesicular junction. Right-sided ureteral stent ureteral stent with stable hydronephrosis. Plan Urology has been consulted patient being covered with empiric antibiotics. will resume tamsulosin (4) Hypokalemia Current Visit: No Status: Acute Assessment and Plan: Electrolyte replaced. repeat am BMP. (5) Back pain Current Visit: No Status: Chronic Assessment and Plan: Tramadol 50 mg by mouth every 6 hours when necessary for pain control. (6) CAD (coronary artery disease) Current Visit: No Status: Chronic Assessment and Plan: Patient on dual antiplatelet therapy. On aspirin 81 mg, and on Clopidrogrel 75 mg by mouth daily. (7) Hypertension Current Visit: No Status: Chronic Assessment and Plan: BP sub-optimally controlled. On metoprolol 25 mg by mouth daily, and lisinopril 20 mg by mouth daily. (8) Altered mental status Current Visit: Yes Status: Acute Assessment and Plan: Possible metabolic cannot r/o infectious. herpes encephalitis? Based on information obtained from people who know and have seen the patient recently this is a sudden change in the past 24 hours.. No Meningeal sings. Anisocoria In no acute distress. Neurology consulted. started empirically on ceftriaxone 2gm/IV daily Will add acyclovir 10mg/kg IV Q8HRs MRI of the brain If no improvement of mental status after HD, will discuss with Neurology about obtaining an LP. (9) ESRD (end stage renal disease) on dialysis Current Visit: Yes Status: Chronic Assessment and Plan: nephrology consulted. Renal replacement therapy as per their recommendations. (10) Abdominal pain Current Visit: No Status: Acute Assessment and Plan: multifactorial. colitis vs cistitis vs nephrolitiasis with hydronephrosis. on tramadol for pain control. (11) Diabetes mellitus type 2 in nonobese Current Visit: No Status: Acute Assessment and Plan: Will add lispro low dose sliding scale carb controlled diet (12) Hypothyroidism Current Visit: Yes Status: Chronic Assessment and Plan: resume levothyroxine 50 mcg/daily PO DVT Prophylaxis: On heparin 5000 units SubsQ BID - Summary of Assessment and Plan Summary of Assessment and Plan: Patient to remain in the hospital due to cystitis, colitis and Hydronephrosis. On IV antibiotics. - Time Spent with Patient Total time spent is greater than 50% in coordination of care (as documented) at patient's floor/unit and/or counseling patient: Greater than 35 minutes (40) Plan of Care Discussed with: patient (and the nurse.) Internal Medicine: Result - Labs CBC & Chem 7: 09/04/18 04:31 09/04/18 04:31 Labs: Short CBC 09/04/18 Range/Units 04:31 WBC 7.2 (4.3-11.1) K/mcL Hgb 11.6 (11.5-15.4) g/dL Hct 36.3 (35.3-44.9) % Plt Count 243 (140-400) K/mcL Neutrophils # 5.6 (1.6-8.9) K/mcL BMP 09/03/18 09/04/18 09:30 04:31 Sodium 136 141 Potassium 3.3 L 3.3 L Chloride 100 106 Carbon Dioxide 27 23 BUN 33 H 34 H Creatinine 2.66 H 2.69 H Glucose 95 154 H Calcium 9.3 8.9 Cardiac Enzymes 09/03/18 Range/Units 09:30 Troponin I < 0.03 (< 0.04) ng/mL Liver Function 09/03/18 Range/Units 09:30 Total Bilirubin 0.5 (0.3-1.0) mg/dL Direct Bilirubin 0.2 (0.0-0.2) mg/dL AST 24 (13-39) Units/L ALT 23 (7-52) Units/L Alkaline Phosphatase 136 H (34-104) Units/L Albumin 3.5 (3.5-5.7) g/dL - ABG Interpretation ABG results: PT/INR, D-dimer PT 12.3 Seconds (9.4-12.1) H 09/03/18 09:30 - Impressions Impressions Abdomen/Pelvis CT 09/03/18 11:25 IMPRESSION: Persistent wall thickening of the urinary bladder. Interval development of left-sided hydroureteronephrosis. No obstructing calculus identified, however the distal ureter appears narrowed at the ureterovesicular junction. Nonspecific wall thickening and edema of the sigmoid colon, stable.. Right-sided ureteral stent ureteral stent with stable hydronephrosis. Small right pleural effusion. D/ / Robel Whittington MD / Robel Whittington MD Interpreting Provider: Robel Whittington MD Consult Discharge Plan - Plan Referrals: NONE,PCP [Primary Care Provider] - (3) Hydronephrosis Qualifiers: Hydronephrosis type: unspecified Qualified Code(s): N13.30 - Unspecified hydronephrosis (5) Back pain Qualifiers: Back pain location: low back pain Chronicity: unspecified Back pain laterality: midline Sciatica presence: without sciatica Qualified Code(s): M54.5 - Low back pain (6) CAD (coronary artery disease) Qualifiers: Coronary Disease-Associated Artery/Lesion type: unspecified vessel or lesion type [place] vs. transplanted heart: unspecified whether [place] or transplanted heart Associated angina: angina presence unspecified Qualified Code(s): I25.10 - Atherosclerotic heart disease of [place] coronary artery without angina pectoris (7) Hypertension Qualifiers: Hypertension type: unspecified Qualified Code(s): I10 - Essential (primary) hypertension (8) Altered mental status Qualifiers: Altered mental status type: disorientation Qualified Code(s): R41.82 - Altered mental status, unspecified (10) Abdominal pain Qualifiers: Abdominal location: generalized Qualified Code(s): R10.84 - Generalized abdominal pain (12) Hypothyroidism Qualifiers: Hypothyroidism type: unspecified Qualified Code(s): E03.9 - Hypothyroidism, unspecified
[2018-09-04] MEDS ORDERED: traMADol 50 MG TABLET PO PRN (11:11)
[2018-09-04] MEDS ORDERED: *HR* Dextrose 50 % in Water (Syg) 50 ML SYRINGE IVP PRN ×2 (11:18→18:36)
[2018-09-04] MEDS ORDERED: D5% in Water 1,000 ML IVC PRN ×2 (11:18→18:36)
[2018-09-04] MEDS ORDERED: Dextrose Gel 15 GM/37.5 ML TUBE PO PRN ×4 (11:18→18:36)
[2018-09-04] MEDS ORDERED: Insulin LISPRO 300 UNITS/3 ML VIAL SQ SCH (11:30)
--- NOTE | 2018-09-04 11:47 | Urology - Consult Note ---
Date of Encounter: 09/04/18 Time of Encounter: 11:44 - Assessment and Plan (1) Hydronephrosis Current Visit: No Status: Acute Assessment and plan: New left-sided hydronephrosis and setting of possible UTI and active left abdominal and back pain. Discussed risks benefits alternatives of stenting with son via phone. Patient is currently with confusion. Plan: Add on for cystoscopy, left retrograde and stent placement today. Continue outpatient follow-up as scheduled in urology Qualifiers: Hydronephrosis type: unspecified Qualified Code(s): N13.30 - Unspecified hydronephrosis (2) UTI (urinary tract infection) Current Visit: No Status: Acute Assessment and plan: History of recurrent UTIs for which she has seen my partners in the past. The patient has a right stent in place for long-standing hydronephrosis on the right. She has been recommended to demonstrate catheterization 3 times a day for incomplete emptying. Now with question of urine in setting of new left upper tract obstruction. This is an indication for urgent urinary diversion. Plan: Left double-J stent placement Qualifiers: Urinary tract infection type: acute cystitis Hematuria presence: with hematuria Qualified Code(s): N30.01 - Acute cystitis with hematuria (3) Abdominal pain Current Visit: No Status: Chronic Assessment and plan: Potentially due to new hydronephrosis. Plan: Stent placement today Qualifiers: Abdominal location: left upper quadrant Qualified Code(s): R10.12 - Left upper quadrant pain Urology CN:HPI Consult date: 09/04/18 Reason for consult Urology: Hydronephrosis History of present illness: Ms. Dan is a 67 year old female with a PMH of arthritis, cancer, coronary artery disease, diabetes, dialysis, GERD, hyperlipidemia, hypertension, myocardial infarction, and ESRD (due to altered mental state unable to determine which days she gets dialysis). She presents to [facility] from an ECF with changes and altered mental status. Unable to obtain information from patient as she has had a altered mental state. Son at bedside reports the ECF notified him that his mother was becoming confused and having intractable abdominal pain. Due to altered mental state the patient is unable to confirm or deny any aggravating or alleviating factors. She is however able to describe the abdominal pain as mostly left-sided with radiation to the left flank and described as 10/10 and sharp. She was recently seen and treated at [facility] for a urinary tract infection, right hydronephrosis and ischemic colitis. Workup in the ED reveals an elevated creatinine however this is a little better than her baseline. Additionally, lab testing is relatively unremarkable. She did have CT imaging of the head and cervical spine which were negative for acute findings. Chest x-ray shows mild bibasilar atelectasis, however there are no opacifications or acute cardiopulmonary abnormalities. The patient's UDS was negative, urinalysis not wholly convincing for urinary tract infection. She does meet to SIRS criteria with a pulse greater than 90 and respiratory rate greater than 18 however does not appear toxic and is afebrile without leukocytosis. No obvious cause of infection present. However, CT of abdomen and pelvis did reveal persistent thic kening of the urinary bladder, development of left-sided hydroureteronephrosis with ureteral narrowing of the ureterovesicular junction and nonspecific edema of the sigmoid colon with thickening. Given her presentation with an acute encephalopathic state she is being admitted for observation for further workup and monitoring. With recent urinary tract infection and a UA positive for a large amount of leukocyte Estrace several. Given continued edema and thickening of sigmoid colon I will also add Flagyl. Blood cultures sent. She will require consult to nephrology for management of ESRD, and will require consult from urology regarding left sided hydroureteronephrosis. Past Med Surg Social Fam HX - Past Medical History Medical history: arthritis, cancer, coronary artery disease, diabetes, dialysis, GERD, hyperlipidemia, hypertension, myocardial infarction, renal disease, other Additional medical history: neuropathy, insomnia Psychiatric history: anxiety, depression - Past Surgical History Surgical History: appendectomy, cholecystectomy, coronary bypass (CABG), hysterectomy, ureteral stent, other Additional surgical history: colonoscopy - egd - tubal ligation - kidney stent - Social History Smoking Status: Former smoker Smokeless Tobacco Status: No Alcohol use: none Drug use: none - Family History Mother Living Status: Hx Family Endocrine Disorder: (DM) Father Adopted: No Hx Family Cardiac Disorders: Yes ("heart troubles") Hx Family Cancer: Yes (Prostate cancer) Hx Family Endocrine Disorder: Yes (DM) Brother Hx Family Cardiac Disorders: Yes (CAD) Hx Family Cancer: Yes (lung cancer) Medications and Allergies Folic Acid 1 mg PO DAILY 07/10/15 [History] Levothyroxine [Synthroid] 50 mcg PO 0630 07/10/15 [History] Pantoprazole Sodium [Protonix] 40 mg PO BID 07/10/15 [History] Docusate [Colace] 100 mg PO BID 10/14/16 [History] Albuterol Sulfate [Proair Hfa] 2 puff IH Q4H PRN 03/17/17 [History] Atorvastatin [Lipitor] 40 mg PO HS 03/17/17 [History] Clopidogrel [Plavix] 75 mg PO DAILY 05/09/17 [History] Sucralfate [Carafate] 1 gm PO 0730,1630 05/09/17 [History] Furosemide [Lasix] 20 mg PO DAILY 03/01/18 [History] Amitriptyline [Elavil] 25 mg PO HS 03/26/18 [History] Ergocalciferol (VITAMIN D2) [Drisdol] 50,000 unit PO MO 03/26/18 [History] Insulin ASPART [NovoLOG] 2 - 12 unit SQ TID 03/26/18 [History] Insulin DETEMIR [Levemir] 12 unit SQ QAM 03/26/18 [History] Tamsulosin [Flomax] 0.4 mg PO DAILY 03/26/18 [History] Zolpidem [Ambien] 5 mg PO HS 03/26/18 [History] Lactobacillus Combination No.8 [Adult Probiotic] 1 cap PO DAILY 05/04/18 [History] Pramipexole Di-HCl [Pramipexole Dihydrochloride] 0.125 mg PO HS 05/04/18 [History] Promethazine [Phenergan] 25 mg PO TID PRN 05/04/18 [History] Psyllium Husk [Daily Fiber] 0.52 gm PO DAILY 05/04/18 [History] SUMAtriptan Succinate [Imitrex] 6 mg SQ BID PRN 05/04/18 [History] Baclofen [Lioresal] 10 mg PO TID PRN 07/31/18 [History] Lisinopril [Zestril] 20 mg PO SUTUTHSA 07/31/18 [History] Mirtazapine [Remeron] 15 mg PO HS 07/31/18 [History] Insulin DETEMIR [Levemir Flextouch] 14 unit SQ QPM 08/06/18 [History] OxyCODONE/APAP 5/325 [Percocet 5/325 MG] 1 tab PO TID PRN 3 Days #9 tablet 08/12/18 [Rx] Aspirin Enteric Coated [Aspirin EC] 81 mg PO DAILY 09/04/18 [History] Calcium Carbonate [Calcium] 500 mg PO BID 09/04/18 [History] Folic Acid/Vit Bcomp,C [Renal Vitamin Tablet] 0.8 mg PO DAILY 09/04/18 [History] Metoprolol XL (24 HR) Succ [Toprol Xl] 12.5 mg PO SUTUTHSA 09/04/18 [History] Midodrine [ProAmatine] 5 mg PO MOWEFR 09/04/18 [History] Oxybutynin Chloride [Ditropan Xl] 10 mg PO DAILY 09/04/18 [History] Allergy/AdvReac Type Severity Reaction Status Date / Time adhesive tape Allergy Redness of Verified 07/15/18 11:57 Skin latex Allergy Swelling Verified 07/15/18 11:57 of Lip/Tongue/Throat Sulfa (Sulfonamide Allergy Rash Verified 07/15/18 11:57 Antibiotics) Review of Systems ROS unobtainable: due to mental status Exam Initial Vital Signs Temp Pulse Resp BP Pulse Ox 98.2 F 92 18 176/105 9 09/03/18 09:12 09/03/18 09:12 09/03/18 09:12 09/03/18 09:12 09/03/18 09:12 - General physical appearance Present: well nourished, no distress - Eyes Absent: icteric - ENT Present: normal mucosa - Neck Present: trachea midline - Respiratory Present: normal respiratory effort - Abdomen Abdomen: Present: tender - Integumentary Present: no growths, no abnormal pigmentation Urology Results - Labs 09/04/18 04:31 09/04/18 04:31 Abnormal lab results RBC 3.76 M/mcL (3.82-4.97) L 09/04/18 04:31 RDW 14.7 % (11.5-14.5) H 09/04/18 04:31 PT 12.3 Seconds (9.4-12.1) H 09/03/18 09:30 Potassium 3.3 mEq/L (3.5-5.1) L 09/04/18 04:31 BUN 34 mg/dL (8-23) H 09/04/18 04:31 Creatinine 2.69 mg/dL (0.60-1.20) H 09/04/18 04:31 Est GFR ( Amer) 21 (> 60) L 09/04/18 04:31 Est GFR (Non-Af Amer) 18 (> 60) L 09/04/18 04:31 Glucose 154 mg/dL (70-105) H 09/04/18 04:31 POC Glucose 138 mg/dL (70-99) H 09/04/18 05:53 Calculated Osmolality 303 (280-300) H 09/04/18 04:31 Alkaline Phosphatase 136 Units/L (34-104) H 09/03/18 09:30 Albumin/Globulin Ratio 1.0 (1.1-2.2) L 09/03/18 09:30 Ur Specimen Adequacy See below A 09/03/18 09:31 Ur Specific [place] < 1.005 (1.010-1.025) L 09/03/18 09:31 Urine Protein 100 mg/dL (Neg-Trace) H 09/03/18 09:31 Urine Blood Small (Negative) H 09/03/18 09:31 Ur Leukocyte Esterase Large (Negative) H 09/03/18 09:31 Urine Microscopic WBC 5-15 per hpf (0-3) H 09/03/18 09:31 Ur Squamous Epith Cells Many per lpf (None-Few) H 09/03/18 09:31 Ur Culture Indicated? NO. (NO) A 09/03/18 09:31 Diabetes panel 09/04/18 Range/Units 04:31 Sodium 141 (136-145) mEq/L Potassium 3.3 L (3.5-5.1) mEq/L Chloride 106 (98-107) mEq/L Carbon Dioxide 23 (23-29) mEq/L BUN 34 H (8-23) mg/dL Creatinine 2.69 H (0.60-1.20) mg/dL Glucose 154 H (70-105) mg/dL Calcium 8.9 (8.6-10.3) mg/dL Thyroid panel 09/03/18 Range/Units 09:30 TSH 0.765 (0.340-5.600) mcIU/mL Calcium panel 09/04/18 Range/Units 04:31 Calcium 8.9 (8.6-10.3) mg/dL Pituitary panel 09/03/18 09/04/18 Range/Units 09:30 04:31 Sodium 141 (136-145) mEq/L Potassium 3.3 L (3.5-5.1) mEq/L Chloride 106 (98-107) mEq/L Carbon Dioxide 23 (23-29) mEq/L BUN 34 H (8-23) mg/dL Creatinine 2.69 H (0.60-1.20) mg/dL Glucose 154 H (70-105) mg/dL Calcium 8.9 (8.6-10.3) mg/dL TSH 0.765 (0.340-5.600) mcIU/mL Adrenal panel 09/04/18 Range/Units 04:31 Sodium 141 (136-145) mEq/L Potassium 3.3 L (3.5-5.1) mEq/L Chloride 106 (98-107) mEq/L Carbon Dioxide 23 (23-29) mEq/L BUN 34 H (8-23) mg/dL Creatinine 2.69 H (0.60-1.20) mg/dL Glucose 154 H (70-105) mg/dL Calcium 8.9 (8.6-10.3) mg/dL All other labs normal. - Imaging CT scan - abdomen: image reviewed CT scan - pelvis: image reviewed (Images of CT reviewed and interpreted independently) Consult Discharge Plan - Plan Referrals: NONE,PCP [Primary Care Provider] -
[2018-09-04] MEDS ORDERED: Potassium Chloride Elixir 20 MEQ/15 ML UDC PO ONE (11:51)
[2018-09-04] MEDS ORDERED: cefTRIAXone 2,000 MG in Water for inj. (sterile) 20 ML 20 ML IVP SCH (12:00)
[2018-09-04] MEDS ORDERED: *HR* Heparin 5,000 UNIT/ML VIAL ONE (12:59)
[2018-09-04] MEDS ORDERED: Acyclovir 500 MG in D5% in Water 250 ML IVPB SCH ×2 (14:00→21:00)
--- NOTE | 2018-09-04 14:09 | Nephrology Progress Note ---
Date of Encounter: 09/04/18 Time of Encounter: 13:58 - Assessment and Plan (1) ESRD (end stage renal disease) on dialysis Current Visit: Yes Status: Chronic Current regimen is Tuesday at [facility]. Treatment was Tuesday, without complication. HD in progress for today. Avoid nephrotoxins and renal dose all medications. (2) Altered mental status Current Visit: Yes Status: Acute Per primary. Qualifiers: Altered mental status type: disorientation Qualified Code(s): R41.82 - Altered mental status, unspecified (3) Anemia Current Visit: Yes Status: Chronic Goal hemoglobin is 10-11. Hemoglobin today is 11.6, stable. Qualifiers: Anemia type: unspecified type Qualified Code(s): D64.9 - Anemia, unspecified (4) Abdominal pain Current Visit: No Status: Acute Unknown etiology. Encouraged supportive care. Could be related to the hydronephrosis. Qualifiers: Abdominal location: generalized Qualified Code(s): R10.84 - Generalized abdominal pain (5) Hydronephrosis Current Visit: No Status: Acute Per urology, is going for stent this afternoon. Qualifiers: Hydronephrosis type: unspecified Qualified Code(s): N13.30 - Unspecified hydronephrosis Subjective Principal diagnosis: AMS Interval history: Ms. Dan is a 67-year-old female who presented to the emergency department with altered mental status. She was seen on hemodialysis on Tuesday last week, and was doing well. PMH: arthritis, cancer, coronary artery disease, diabetes, dialysis, GERD, hyperlipidemia, hypertension, myocardial infarction, and ESRD and a Tuesday at [facility]. She typically lives at home alone, but has recently moved into an F. She appears quite altered with examination today. She was unable to recognize Dr. Patel, who she has seen for years. She is being evaluated by urology for a urinary stent to be placed today. She currently has a right ureteral stent. The CT of the abdomen and pelvis did show some left-sided hydronephrosis. This could be part of her altered mental status. HD has been ordered and will be completed before the stent placement. We will order additional UF or HD as needed. Avoid nephrotoxins and renal dose all medi cations. She is a former smoker, denies any drug or tobacco use. Objective - Vital Signs Vital signs: Vital Signs Temp Pulse Resp BP Pulse Ox 09/04/18 08:23 98.5 F 93 18 177/82 100 09/04/18 04:52 98.5 F 94 15 157/90 92 09/04/18 01:15 98.9 F 86 17 180/84 91 09/03/18 20:01 97 09/03/18 19:10 98.9 F 94 16 184/88 97 09/03/18 16:55 97.6 F 84 18 191/92 100 09/03/18 16:25 100 09/03/18 14:32 85 20 181/67 98 Intake and Output 09/03/18 09/04/18 09/04/18 23:59 07:59 15:59 Intake Total 110 / 110 100 / 100 Balance 110 / 110 100 / 100 Intake: IV Fluids 110 / 110 100 / 100 Rocephin 1,000 MG In Water for 10 / 10 inj. (sterile) 10 ML @ 600 mls/ hr IVP ONCE ONE Rx#:[id number] Flagyl Premix 500 MG/100 ML 500 100 / 100 100 / 100 mg In 100 ml @ 100 mls/hr IVPB Q8HR YUSUF Rx#:[id number] Oral 0 / 0 0 / 0 Other: Stool Size Small Smear Stool Consistency loose Stool Color Brown # Urine Diapers 1 1 1 # Bowel Movements 1 Weight 69.2 kg 69.2 kg Blood Glucose* 95 138 Patient Weight 09/04/18 23:59 Weight 69.2 kg - General Appearance General appearance: Present: chronically ill, fatigue, frail EENT: Present: ATNC, hearing intact, vision intact Neck: Present: supple Respiratory: Present: clear Cardiology: Present: no edema, normal S1, normal S2 Dialysis Vascular Access: Arteriovenous Fistula thrill: Yes bruit: Yes Gastrointestinal: Present: normoactive bowel sounds, no tenderness, no guarding Integumentary: Present: no rash, warm and dry Neurologic: Present: confused Musculoskeletal: Present: no deformities Psychiatric: Present: mood/affect appropriate, cooperative - Lab 09/04/18 04:31 09/04/18 04:31 Most recent lab results Calcium 8.9 mg/dL (8.6-10.3) 09/04/18 04:31 Consult Discharge Plan - Plan Referrals: NONE,PCP [Primary Care Provider] -
--- NOTE | 2018-09-04 14:10 | Electrocardiograph Report ---
[address] [place], [place] [address] Test Date: 2018-09-03 Pat Name: Alaina Dan Department: [id number] Room: 2NE19 Gender: F Nursing Technician: : [id number] Requested By: Campbell Welch Order Number: [id number] Reading MD: Ermelinda Tellez Measurements Intervals [place] Rate: 93 P: 58 VT: 174 QRS: -13 QRSD: 114 T: 84 QT: 396 QTc: 493 Interpretive Statements Sinus rhythm Probable LVH with secondary repol abnrm Artifact Electronically Signed On 09-04-2018 14:08:41 EST by Ermelinda Tellez
--- NOTE | 2018-09-04 14:28 | Neurology - Consult Note ---
Addendum entered and electronically signed by Olaf Dubois MD 09/04/18 16:56: Patient seen and examined in the presence of Dr. Joon Dias and i agree with his history taking, physical examination, assessment and plan outlined below with following additions. 1. Will obtain MRI of brain without contrast to assess intracranial abnormality. Due to her history of non small cell lung cancer, would particularly concerns for limbic encephalopathy so MRI of brain would be helpful. 2. Patient has no headaches, no nuchal rigidity, no seizures, and no neck pain and no fever and no WBC so unlikely we are dealing with encepahalitis or meningitis. The changing in mental status is more resembling to delirium than confusion and she appears wide awake and her speech appears fluent but she does not answer questions correctly. This would be consistent with encephalitis secondary to medical conditions. Original Note: Date of Encounter: 09/04/18 Time of Encounter: 14:16 Assessment and Plan (1) Acute metabolic encephalopathy Current Visit: Yes Status: Acute patient is alert and oriented to self only. This is in conjunction with left hydroureteronephrosis, UTI, and nonspecific wall thickening and edema of sigmoid colon being treated as colitis. CT head is negative as well as CT cervical spine. Neurological exam is nonfocal, nonlateralizing except for mental status, chronic right anisicoria MRI 08/07/18 showed mild chronic small vessel ischemic disease within the periventricular white matter. Similar presentation during 08/07 admission with resolution of altered mental status secondary to UTI treatment. Negative Kernig sign, nuchal rigidity, headache Patient is afebrile, without leukocytosis. plan: less likely this is encephalitis due to absence of fever, headache, seizure. Patient started on acyclovir by primary team. Will obtain MRI, if negative discontinue acyclovir. (2) Colitis Current Visit: Yes Status: Acute Patient is started on IV antibiotics as per primary. (3) ESRD (end stage renal disease) on dialysis Current Visit: Yes Status: Chronic Patient undergoing dialysis today. 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 Patient has not missed any sessions. Lactic acid within normal limits. (4) Cystitis Current Visit: Yes Status: Acute On IV antibiotics per primary. (5) Hypothyroidism Current Visit: Yes Status: Chronic TSH within normal limits. Qualifiers: Hypothyroidism type: unspecified Qualified Code(s): E03.9 - Hypothyroidism, unspecified History of Present Illness Chief complaint: abdominal pain HPI: Ms. Dan is a 67 year old female hx of ESRD, ischemic cholitis, anemia presented with cc of abdominal pain with altered mental status. Patient was in dialysis during my evaluation and there were to family memebers present. She is oriented to self only but not to time place or situation. Patient came from [facility] and history is obtained from EMR. Patient had abdominal painand intractable, le ft side with radiation to the left flank, 10 out of 10. At baseline patient is alert oriented x3. CT head and cervical spine was negative. CT abdomne pelvis showed evidence of new left sided hydronephrosis and she is being treated for UTI. Urology is consulted for hydronephrosis and will plan for cystoscopy today with stent placement. She was seen by neurlogy for AMS during pervious admission on 08/07/18 2nd to metabolic encephalopathy from uti. At that time patient had right anisacoria. MRI was negative but poor quality due to movement. She was treated with IV antibiotics and her AMS resolved. Past Med Surg Social Fam HX - Past Medical History Medical history: arthritis, cancer, coronary artery disease, diabetes, dialysis, GERD, hyperlipidemia, hypertension, myocardial infarction, renal disease, other Additional medical history: neuropathy, insomnia Psychiatric history: anxiety, depression - Past Surgical History Surgical History: appendectomy, cholecystectomy, coronary bypass (CABG), hysterectomy, ureteral stent, other Additional surgical history: colonoscopy - egd - tubal ligation - kidney stent - Social History Smoking Status: Former smoker Smokeless Tobacco Status: No Alcohol use: none Drug use: none - Family History Mother Living Status: Hx Family Endocrine Disorder: (DM) Father Adopted: No Hx Family Cardiac Disorders: Yes ("heart troubles") Hx Family Cancer: Yes (Prostate cancer) Hx Family Endocrine Disorder: Yes (DM) Brother Hx Family Cardiac Disorders: Yes (CAD) Hx Family Cancer: Yes (lung cancer) Medications and Allergies Folic Acid 1 mg PO DAILY 07/10/15 [History] Levothyroxine [Synthroid] 50 mcg PO 0630 07/10/15 [History] Pantoprazole Sodium [Protonix] 40 mg PO BID 07/10/15 [History] Docusate [Colace] 100 mg PO BID 10/14/16 [History] Albuterol Sulfate [Proair Hfa] 2 puff IH Q4H PRN 03/17/17 [History] Atorvastatin [Lipitor] 40 mg PO HS 03/17/17 [History] Clopidogrel [Plavix] 75 mg PO DAILY 05/09/17 [History] Sucralfate [Carafate] 1 gm PO 0730,1630 05/09/17 [History] Furosemide [Lasix] 20 mg PO DAILY 03/01/18 [History] Amitriptyline [Elavil] 25 mg PO HS 03/26/18 [History] Ergocalciferol (VITAMIN D2) [Drisdol] 50,000 unit PO MO 03/26/18 [History] Insulin ASPART [NovoLOG] 2 - 12 unit SQ TID 03/26/18 [History] Insulin DETEMIR [Levemir] 12 unit SQ QAM 03/26/18 [History] Tamsulosin [Flomax] 0.4 mg PO DAILY 03/26/18 [History] Zolpidem [Ambien] 5 mg PO HS 03/26/18 [History] Lactobacillus Combination No.8 [Adult Probiotic] 1 cap PO DAILY 05/04/18 [History] Pramipexole Di-HCl [Pramipexole Dihydrochloride] 0.125 mg PO HS 05/04/18 [History] Promethazine [Phenergan] 25 mg PO TID PRN 05/04/18 [History] Psyllium Husk [Daily Fiber] 0.52 gm PO DAILY 05/04/18 [History] SUMAtriptan Succinate [Imitrex] 6 mg SQ BID PRN 05/04/18 [History] Baclofen [Lioresal] 10 mg PO TID PRN 07/31/18 [History] Lisinopril [Zestril] 20 mg PO SUTUTHSA 07/31/18 [History] Mirtazapine [Remeron] 15 mg PO HS 07/31/18 [History] Insulin DETEMIR [Levemir Flextouch] 14 unit SQ QPM 08/06/18 [History] OxyCODONE/APAP 5/325 [Percocet 5/325 MG] 1 tab PO TID PRN 3 Days #9 tablet 08/12/18 [Rx] Aspirin Enteric Coated [Aspirin EC] 81 mg PO DAILY 09/04/18 [History] Calcium Carbonate [Calcium] 500 mg PO BID 09/04/18 [History] Folic Acid/Vit Bcomp,C [Renal Vitamin Tablet] 0.8 mg PO DAILY 09/04/18 [History] Metoprolol XL (24 HR) Succ [Toprol Xl] 12.5 mg PO SUTUTHSA 09/04/18 [History] Midodrine [ProAmatine] 5 mg PO MOWEFR 09/04/18 [History] Oxybutynin Chloride [Ditropan Xl] 10 mg PO DAILY 09/04/18 [History] Allergy/AdvReac Type Severity Reaction Status Date / Time adhesive tape Allergy Redness of Verified 07/15/18 11:57 Skin latex Allergy Swelling Verified 07/15/18 11:57 of Lip/Tongue/Throat Sulfa (Sulfonamide Allergy Rash Verified 07/15/18 11:57 Antibiotics) ROS unobtainable: due to mental status All Systems: The remainder of the systems were reviewed and are negative Physical Examination - Vital Signs Vital Signs: Initial Vital Signs Temp Pulse Resp BP Pulse Ox 98.2 F 92 18 176/105 9 09/03/18 09:12 09/03/18 09:12 09/03/18 09:12 09/03/18 09:12 09/03/18 09:12 - Constitutional General appearance: comfortable - Neurologic Sensorimotor examination: intact, other (Grossly intact) Detailed motor examination: grossly full strength in all extremities, other (P atient able to move all 4 extremities spontaneously.) Detailed sensory examination: other (Unable to assess due to alert and oriented 1) Reflex and gait examination: other (Unable to assess as patient was in dialysis.) Reflexes: Biceps: 1+, Triceps: 1+, Brachioradialis: 1+, Patella: 1+, Achilles: 1+ Mental Status Examination: awake, alert, oriented to person, opens eyes to voice, opens eyes to noxious stimulation, makes eye contact, follows simple commands, inattentive, rambling, not reliable historian Mental Status Examination: Patient is not oriented to time, situation, place. She does not answer questions appropriately. She does not know the president is. Cranial nerve examination: PERRL (Right anisacoria), EOMI (Grossly intact.), m astication intact, no facial asymmetry is present, no dysarthria, soft palate elevates bilaterally upon phonation, flexes SCM and trapezius muscles symmetrically with full power, tongue protrudes midline Cerebellar examination: no dysmetria, performs finger to nose and heel to frankel symmetrically without ataxia Results - Laboratory Findings CBC and BMP: 09/04/18 04:31 09/04/18 04:31 Abnormal lab findings: Abnormal lab results RBC 3.76 M/mcL (3.82-4.97) L 09/04/18 04: RDW 14.7 % (11.5-14.5) H 09/04/18 04: PT 12.3 Seconds (9.4-12.1) H 09/03/18 09:30 Potassium 3.3 mEq/L (3.5-5.1) L 09/04/18 04: BUN 34 mg/dL (8-23) H 09/04/18: Creatinine 2.69 mg/dL (0.60-1.20) H 09/04/18 04:31 Est GFR ( Amer) 21 (> 60) L 09/04/18 04: Est GFR (Non-Af Amer) 18 (> 60) L 09/04/18 04: Glucose 154 mg/dL (70-105) H 09/04/18 04:31 POC Glucose 138 mg/dL (70-99) H 09/04/18 05:53 Calculated Osmolality 303 (280-300) H 09/04/18 04:31 Alkaline Phosphatase 136 Units/L (34-104) H 09/03/18 09:30 Albumin/Globulin Ratio 1.0 (1.1-2.2) L 09/03/18 09:30 Ur Specimen Adequacy See below A 09/03/18: Ur Specific [place] < 1.005 (1.010-1.025) L 09/03/18 09:31 Urine Protein 100 mg/dL (Neg-Trace) H 09/03/18 09:31 Urine Blood Small (Negative) H 09/03/18: Ur Leukocyte Esterase Large (Negative) H 09/03/18 09:31 Urine Microscopic WBC 5-15 per hpf (0-3) H 09/03/18 09:31 Ur Squamous Epith Cells Many per lpf (None-Few) H 09/03/18 09: Ur Culture Indicated? NO. (NO) A 09/03/18 09:31 Consult Discharge Plan - Plan Referrals: NONE,PCP [Primary Care Provider] -
[2018-09-04] MEDS: *HR* HYDROcodone/Acet 5/325 mg TABLET PO PRN ×2 (14:40→21:28)
--- NOTE | 2018-09-04 16:03 | Anesthesia Evaluation PreOp ---
Date of Encounter: 09/04/18 Time of Encounter: 16:11 - Past History Planned Operation: Cystoscopy Cardiac History: AR, HTN, Hyperlipidemia, Cardiac Surgery (CABG x 2) Pulmonary History: Denies Any Significant HX COMPENSATION/BENEFITS SPECIALIST History: Denies Any Significant HX Other Medical History: Renal (ESRD on dialysis MWF), Diabetes Type II, GERD Anesthesia History: No Prior Anesthetic Complications, Past Anesthesia Alcohol Use: none Drug use: none Medications and Allergies Folic Acid 1 mg PO DAILY 07/10/15 [History] Levothyroxine [Synthroid] 50 mcg PO 0630 07/10/15 [History] Pantoprazole Sodium [Protonix] 40 mg PO BID 07/10/15 [History] Docusate [Colace] 100 mg PO BID 10/14/16 [History] Albuterol Sulfate [Proair Hfa] 2 puff IH Q4H PRN 03/17/17 [History] Atorvastatin [Lipitor] 40 mg PO HS 03/17/17 [History] Clopidogrel [Plavix] 75 mg PO DAILY 05/09/17 [History] Sucralfate [Carafate] 1 gm PO 0730,1630 05/09/17 [History] Furosemide [Lasix] 20 mg PO DAILY 03/01/18 [History] Amitriptyline [Elavil] 25 mg PO HS 03/26/18 [History] Ergocalciferol (VITAMIN D2) [Drisdol] 50,000 unit PO MO 03/26/18 [History] Insulin ASPART [NovoLOG] 2 - 12 unit SQ TID 03/26/18 [History] Insulin DETEMIR [Levemir] 12 unit SQ QAM 03/26/18 [History] Tamsulosin [Flomax] 0.4 mg PO DAILY 03/26/18 [History] Zolpidem [Ambien] 5 mg PO HS 03/26/18 [History] Lactobacillus Combination No.8 [Adult Probiotic] 1 cap PO DAILY 05/04/18 [History] Pramipexole Di-HCl [Pramipexole Dihydrochloride] 0.125 mg PO HS 05/04/18 [Histo ry] Promethazine [Phenergan] 25 mg PO TID PRN 05/04/18 [History] Psyllium Husk [Daily Fiber] 0.52 gm PO DAILY 05/04/18 [History] SUMAtriptan Succinate [Imitrex] 6 mg SQ BID PRN 05/04/18 [History] Baclofen [Lioresal] 10 mg PO TID PRN 07/31/18 [History] Lisinopril [Zestril] 20 mg PO SUTUTHSA 07/31/18 [History] Mirtazapine [Remeron] 15 mg PO HS 07/31/18 [History] Insulin DETEMIR [Levemir Flextouch] 14 unit SQ QPM 08/06/18 [History] OxyCODONE/APAP 5/325 [Percocet 5/325 MG] 1 tab PO TID PRN 3 Days #9 tablet 08/12/18 [Rx] Aspirin Enteric Coated [Aspirin EC] 81 mg PO DAILY 09/04/18 [History] Calcium Carbonate [Calcium] 500 mg PO BID 09/04/18 [History] Folic Acid/Vit Bcomp,C [Renal Vitamin Tablet] 0.8 mg PO DAILY 09/04/18 [History] Metoprolol XL (24 HR) Succ [Toprol Xl] 12.5 mg PO SUTUTHSA 09/04/18 [History] Midodrine [ProAmatine] 5 mg PO MOWEFR 09/04/18 [History] Oxybutynin Chloride [Ditropan Xl] 10 mg PO DAILY 09/04/18 [History] Allergy/AdvReac Type Severity Reaction Status Date / Time adhesive tape Allergy Redness of Verified 07/15/18 11:57 Skin latex Allergy Swelling Verified 07/15/18 11:57 of Lip/Tongue/Throat Sulfa (Sulfonamide Allergy Rash Verified 07/15/18 11:57 Antibiotics) - Meds/Allergy Pre-op Review Medications Reviewed: Yes Allergies Reviewed: Yes Beta Blockers on Current Med List: Yes If Beta Blockers taken, Date/Time (Last Dose taken): 09/04/2018 at 0828 Anesthesia Results - Labs 09/04/18 04:31 09/04/18 04:31 - Imaging EKG: report reviewed (09/03/2018 Sinus rhythm Probable LVH with secondary repol abnrm Artifact) Additional studies: 03/02/2018 Stress Impression: Pharmacologic stress ECG is negative for ischemia at level of heart rate achieved. Gated EF = 61%. Small sized, mild intensity, fixed apex defect with normal wall motion. These findings are most consistent with artifact. Perfusion imaging was negative for ischemia or infarct. 03/01/2018 Echo Impressions: LVEF 60%. Normal LV chamber size, wall thickness and function. Mild left ventricular diastolic dysfunction. Normal right ventricular structure and function. No evidence of pulmonary hypertension. No significant valvular dysfunction. Anesthesia Exam Vital Signs/O2 Sat/Glucose, Most Recent Temp Pulse Resp BP Pulse Ox 98.5 F 93 18 177/82 100 09/04/18 08:23 09/04/18 08:23 09/04/18 08:23 09/04/18 08:23 09/04/18 08:23 Blood Glucose* 138 Height: 5'2''/1.57m Weight: 152 lbs/69.2 kg NPO (# of Hours): 8 - HEENT Pupil (Motor): EOMI Mallampati: III Teeth: Edentulous Oral Opening: Greater than 3 - COMPENSATION/BENEFITS SPECIALIST LOC: Confused COMPENSATION/BENEFITS SPECIALIST Motor: Normal RUE, Normal LUE, Normal RLE, Normal LLE, Normal Face COMPENSATION/BENEFITS SPECIALIST Sensory: Normal: RUE, LUE, RLE, LLE, Face - Cardiac Rhythm: Regular Murmur: None - Pulmonary Breath Sounds: bilateral Clear Respiratory Effort: Symmetrical Anesthesia Assess/Plan ASA Score: 4 Level of consciousness: Cooperative, Tranquil Anesthetic Plan: General (Patient is confused. Consent obtained by phone from jin Van.) Monitoring Plan: Standard Monitors Recovery Plan: PACU
[2018-09-04] MEDS ORDERED: Isovue-300 30 ML VIAL ONE (16:25)
[2018-09-04] MEDS ORDERED: *HR* Propofol 200 MG/20 ML VIAL IVP ONE (16:51)
[2018-09-04] MEDS ORDERED: Lidocaine -MPF 2% 2 ML VIAL ONE (16:51)
[2018-09-04] MEDS ORDERED: Ondansetron 4 MG/2 ML VIAL ONE (16:51)
[2018-09-04] MEDS ORDERED: Dexamethasone 4 MG/ML VIAL ONE (16:51)
[2018-09-04] MEDS ORDERED: *HR* FentaNYL (PF) 100 MCG/2 ML VIAL ONE (16:51)
--- NOTE | 2018-09-04 17:16 | Operative Note ---
Date of procedure: 09/04/18 Pre-op diagnosis: Left hydronephrosis, active urinary tract infection, abdominal pain Post-op diagnosis: same Procedure: Cystoscopy, retrograde ureteral pyelography with intraoperative interpretation of radiographic images in real time by surgeon to facilitate procedure, left double-J stent placement under fluoroscopic guidance. Implants: 6 x 26 left double-J stent Complications: None Surgeon: Bonilla Tyson Was there an assistant office manager present: No Estimated blood loss (cc): 0 Specimen: none Condition: stable Disposition: PACU Procedure in Detail: Very pleasant lady with a history of right hydronephrosis and long-term right-si ded double-J stent. Additionally she has a history of incomplete bladder emptying with recurrent urinary tract infection and is supposed to be on intermittent straight catheterization 3 times a day. She now presents with delirium and signs of active UTI. On recent imaging she is found to have new left-sided hydronephrosis as well. Given active UTI in the setting of obstruction urgent urinary diversion is indicated. The patient was brought to the operating theater placed on table supine position identified by name and date of . The patient was then administered a general anesthetic. The patient was placed in dorsal lithotomy prepped and draped in the normal sterile fashion. The cystoscope was inserted into the urethral meatus and advanced toward the bladder under direct visualization. The urine was somewhat cloudy but there were no mucosal abnormalities of the bladder. The bladder was quite trabeculated and the UOs were located extremely laterally. The right side had an existing double-J stent in place. An open-ended catheter was placed in the tip of left ureteral orifice and with gentle injection of contrast the following retrograde ureteropyelogram findings were appreciated: Hydroureteronephrosis down to the level of the distal ureter near the ureteral portion of the bladder. Noted definitive filling defect was appreciated. No other suspicious findings in the ureter upper tracts were appreciated. Based on intraoperative interpretation of radial graphic images urinary diversion was indicated via stent placement. A Glidewire was placed into the left renal pelvis over the Glidewire a 6 x 26 double-J stent was advanced. Was sent was felt to be in good position the Glidewire was removed proximal distal ends of the stent curled in good position under fluoroscopy. This was felt to be a good Result. All instruments were removed from the patient's bladder. This ended the operative procedure.
--- NOTE | 2018-09-04 18:23 | Anesthesia Evaluation Post Op ---
Date of Encounter: 09/04/18 Time of Encounter: 18:22 - Vital Signs Vital Signs: Vital Signs/O2 Sat/Glucose, Most Current Temp Pulse Resp BP Pulse Ox 09/04/18 17:59 83 16 173/94 99 09/04/18 17:49 97.2 F L 83 16 173/90 99 09/04/18 17:39 82 16 168/76 99 09/04/18 17:29 82 16 173/77 98 09/04/18 17:19 98 F 80 17 168/78 99 - Lungs Lungs: Clear Ascult./Percussion - Airway Airway: Non-obstructed - Cardiovascular Regular Rate, Baseline Rhythm - Mental Status Mental Status: Alert & Oriented, Answers Appropriately - Pain Pain Scale: 2 Pain Scale used: Numeric (1 - 10) - Nausea Vomiting Nausea Vomiting: Not Present - Hydration Hydration: Ice chips, Khanna catheter - Discharge PostOp Status: Transfer Patient to floor
[2018-09-04] MEDS ORDERED: Naloxone 0.4 MG/ML INJ IVP PRN (18:36)
[2018-09-04] MEDS ORDERED: Mirtazapine 15 MG TABLET PO SCH (21:00)
[2018-09-04] MEDS: Mirtazapine 15 MG TABLET PO SCH (21:28)
[2018-09-05] MEDS: MetroNIDAZOLE 500 MG/100 ML 500 MG/100 ML BAG IVPB SCH ×2 (00:15→09:33)
[2018-09-05 04:04] LABS: Basophils % 0.4 %; Hematocrit 35.4 % (35.3-44.9); Hemoglobin 11.3 g/dL (11.5-15.4); Immature Granulocytes % 0.2 % (0-4); Lymphocytes # 0.9 K/mcL (0.6-4.6); Lymphocytes % 16.2 %; Mean Corpuscular HGB Conc 31.9 g/dL (31.6-35.5); Mean Corpuscular Hemoglobin 30.5 pg (28.0-33.3); Mean Corpuscular Volume 95.4 fL (83.0-100.0); Mean Platelet Volume 10.1 fL (9.4-12.4); Monocytes # 0.3 K/mcL (0.0-1.3); Neutrophils # 4.3 K/mcL (1.6-8.9); Platelet Count 259 K/mcL (140-400); Red Blood Count 3.71 M/mcL (3.82-4.97); Red Cell Distribution Width 14.4 % (11.5-14.5); Segmented Neutrophils % 77.2 %
[2018-09-05 04:27] LABS: Phosphorous 4.3 mg/dL (2.7-4.5)
[2018-09-05 04:48] LABS: Calcium 8.5 mg/dL (8.6-10.3); Potassium 4.6 mEq/L (3.5-5.1)
[2018-09-05] MEDS: *HR* Heparin 5,000 UNIT/ML VIAL SQ SCH ×2 (06:24→17:57)
[2018-09-05] MEDS ORDERED: Lisinopril 20 MG TABLET PO SCH (09:00)
[2018-09-05] MEDS ORDERED: Metoprolol XL (24 HR) Succ 25 MG TAB.ER.24H PO SCH (09:00)
--- NOTE | 2018-09-05 09:07 | Gastroenterology Consult Note ---
Date of Encounter: 09/05/18 Time of Encounter: 09:03 - Assessment and plan (1) Colitis Current Visit: Yes Status: Acute Assessment and plan: Patient has evidence of colitis on CT. This is stable from her last CT approximately 1 month ago. At that time she went underwent upper and lower endoscopy which revealed an area of ulceration in the sigmoid colon likely indicative of ischemic colitis. Patient at that time completed a 14 day course of Cipro and Flagyl. She denies any new changes in her bowel habits and denies new diarrhea. She has not had diarrhea since admission. Afebrile, no leukocytosis. Infectious colitis is felt to be less likely. Likely residual changes from previously diagnosed ischemic colitis, unlikely the cause of the patient's admitting symptoms. Recommend outpatient follow up - Time Spent With Patient Total time spent is greater than 50% in coordination of care (as documented) at patient's floor/unit and/or counseling patient: GI History of Present Illness - Data of Consult Patient: known to practice within the last 3 years Consult date: 09/05/18 Requesting Physician: Jose Clemons - Consult Narrative Reason for consult: Colitis on CT History of present illness: Ms. Dan is a 67 year old female with history of recently diagnosed colitis presents with altered mental status. On my examination today the patient is alert and oriented 2 and appears somewhat confused at times. She is pleasant and will answer some questions appropriately. She reports mild lower abdominal pain that she states is related to her needing to urinate. She denies any recent bowel movement or diarrhea. She denies nausea or vomiting. She states she had surgery yesterday so did not eat yesterday and has not eaten yet this morning but is hungry. No documented fevers or chills. Colonoscopy: 08/01/18 EGD: 08/09/18 Past Med Surg Social Fam HX - Past Medical History Medical history: arthritis, cancer, coronary artery disease, diabetes, dialysis, GERD, hyperlipidemia, hypertension, myocardial infarction, renal disease, other Additional medical history: neuropathy, insomnia Psychiatric history: anxiety, depression - Past Surgical History Surgical History: appendectomy, cholecystectomy, coronary bypass (CABG), hysterectomy, ureteral stent, other Additional surgical history: colonoscopy - egd - tubal ligation - kidney stent - Social History Smoking Status: Former smoker Smokeless Tobacco Status: No Alcohol use: none Drug use: none - Family History Mother Living Status: Hx Family Endocrine Disorder: (DM) Father Adopted: No Hx Family Cardiac Disorders: Yes ("heart troubles") Hx Family Cancer: Yes (Prostate cancer) Hx Family Endocrine Disorder: Yes (DM) Brother Hx Family Cardiac Disorders: Yes (CAD) Hx Family Cancer: Yes (lung cancer) ROS unobtainable: due to mental status - Constitutional Vitals: Temp Pulse Resp BP Pulse Ox 98.6 F 72 18 177/76 95 09/05/18 07:19 09/05/18 07:19 09/05/18 07:19 09/05/18 07:19 09/05/18 07:19 General appearance: Present: A&O X 2, pleasant, no acute distress - Head Head exam: Present: atraumatic, normal inspection, normocephalic - Eye Eye exam: Present: EOMI, PERRL - ENT ENT exam: Present: mucous membranes moist - Respiratory Respiratory exam: Present: CTAB. Absent: rales, rhonchi, wheezes - Cardiovascular Cardiovascular exam: Present: RRR. Absent: gallop, rubs, systolic murmur - GI/Abdominal GI/Abdominal exam: Present: normal bowel sounds, soft, tenderness (Right lower and left lower quadrants), no peritoneal signs. Absent: distended, firm, guarding, rigid - Extremities Exam Extremities exam: Present: warm. Absent: pedal edema, tenderness - Skin Skin exam: Present: dry, intact, warm Results - Labs CBC & Chem 7: 09/05/18 03:29 09/05/18 03:29 Labs: Last Result Calcium 8.5 mg/dL (8.6-10.3) L 09/05/18 03:29 Troponin I < 0.03 ng/mL (< 0.04) 09/03/18 09:30 Urine Opiates Screen Negative ng/mL (Vsaneq=[id number]) 09/03/18 09:20 Entire Visit Hgb 11.3 g/dL (11.5-15.4) L 09/05/18 03:29 Hct 35.4 % (35.3-44.9) 09/05/18 03:29 PT 12.3 Seconds (9.4-12.1) H 09/03/18 09:30 Total Bilirubin 0.5 mg/dL (0.3-1.0) 09/03/18 09:30 AST 24 Units/L (13-39) 09/03/18 09:30 ALT 23 Units/L (7-52) 09/03/18 09:30 - ABG ABG results: PT/INR, D-dimer PT 12.3 Seconds (9.4-12.1) H 09/03/18 09:30 - Impressions Impressions Retrograde Pyelogram 09/04/18 16:55 IMPRESSION: Intraprocedural fluoroscopic spot images as above. See separate procedure report for more information. D/ / 09/04/2018 18:54:48 Alistair Steele MD / saúl Interpreting Provider: Alistair Steele MD Consult Discharge Plan - Plan Referrals: NONE,PCP [Primary Care Provider] -
[2018-09-05] MEDS: Aspirin 81 MG TAB.CHEW PO SCH (09:30)
--- NOTE | 2018-09-05 09:30 | Neurology Progress Note ---
Addendum entered and electronically signed by Olaf Dubois MD 09/05/18 18:21: Patient seen and examined. I agree with Dr Joon Dias's physical examination and assessment and plan outlined below and and i agree that her mental status has been improving and the pattern would not be consistent with RECONCILIATION MANAGER infectious process and agree that she does not need acyclovir even in a sense of prophylatic therapy. She however, still has mild degree of disorientation which would be expected due to her medical encephalopathy which is expected to improve as her medical condition continues to improve. agree with d/c acyclovir and mri of brain scanning, will sign off at this time. please call if any questions. Addendum entered and electronically signed by Joon Dias DO 09/05/18 10:31: Due to improving mental status will d/c acyclovir. AMS 2nd to metabolic encephalopathy. d/c MRI. Original Note: Date of Encounter: 09/05/18 Time of Encounter: 09:28 Assessment and Plan (1) Acute metabolic encephalopathy Current Visit: Yes Status: Resolved The patient is alert and oriented 3. She knows who the president is which she could not answer yesterday. She remembers my conversation with her from yesterday. Likely her altered mental status is secondary to acute metabolic encephalopathy from ongoing medical conditions. We are still awaiting MRI of the brain. Can discontinue acyclovir if MRI brain is negative for signs of HSV encephalitis. Subjective Principal diagnosis: Metabolic encephalopathy Interval history: This morning patient is alert, awake oriented to self, place, situation but not time. She remembers our conversation from yesterday in the dialysis room. She is eating her breakfast this morning during my conversation. She denies any numbness, tingling, chest pain, abdominal pain. Objective - Constitutional Vitals: Temp Pulse Resp BP Pulse Ox 98.6 F 72 18 177/76 95 09/05/18 07:19 09/05/18 07:19 09/05/18 07:19 09/05/18 07:19 09/05/18 07:19 General appearance: Present: A&O X 2, pleasant, no acute distress - Neurological Exam Sensorimotor examination: Present: intact, other (Grossly intact) Motor Examination: Present: grossly full strength in all extremities, other (Patient able to move all 4 extremities spontaneously.) Motor examination - right side: 5/5: deltoids, biceps, triceps, wrist flexion, wrist extension, urologist, hip flexors, tibialis Anterior, quadriceps, toe extension (EHL), plantarflexion Motor examination - left side: 5: deltoids, biceps, triceps, wrist flexion, wrist extension, hip flexors, urologist, quadriceps, tibialis Anterior, toe extension (EHL), plantarflexion Sensation intact: Present: intact, light touch Reflexes: Biceps: 2+, Triceps: 2+, Brachioradialis: 2+, Patella: 2+, Achilles: 2 + Mental Status Examination: Present: awake, alert, oriented to person, oriented to place, oriented to time, follows commands appropriately, answers questions appropriately, opens eyes to voice, opens eyes to noxious stimulation, makes eye contact, follows simple commands Cranial nerve examination: Present: PERRL (Right anisacoria), EOMI (Grossly i ntact.), visual chandler intact, sensory to face intact, mastication intact, no facial asymmetry is present, no dysarthria, hearing is intact symmetrically, soft palate elevates bilaterally upon phonation, flexes SCM and trapezius muscles symmetrically with full power, tongue protrudes midline Cerebellar examination: Present: no dysmetria, performs finger to nose and heel to frankel symmetrically without ataxia Results - Laboratory Findings CBC and BMP: 09/05/18 03:29 09/05/18 03:29 Abnormal lab findings: Abnormal lab results RBC 3.71 M/mcL (3.82-4.97) L 09/05/18 03:29 Hgb 11.3 g/dL (11.5-15.4) L 09/05/18 03:29 PT 12.3 Seconds (9.4-12.1) H 09/03/18 09:30 BUN 26 mg/dL (8-23) H 09/05/18 03:29 Creatinine 2.03 mg/dL (0.60-1.20) H 09/05/18 03:29 Est GFR ( Amer) 29 (> 60) L 09/05/18 03:29 Est GFR (Non-Af Amer) 24 (> 60) L 09/05/18 03:29 Glucose 207 mg/dL (70-105) H 09/05/18 03:29 POC Glucose 106 mg/dL (70-99) H 09/04/18 16:22 Calcium 8.5 mg/dL (8.6-10.3) L 09/05/18 03:29 Alkaline Phosphatase 136 Units/L (34-104) H 09/03/18 09:30 Albumin/Globulin Ratio 1.0 (1.1-2.2) L 09/03/18 09:30 Ur Specimen Adequacy See below A 09/03/18 09:31 Ur Specific [place] < 1.005 (1.010-1.025) L 09/03/18 09:31 Urine Protein 100 mg/dL (Neg-Trace) H 09/03/18 09:31 Urine Blood Small (Negative) H 09/03/18 09:31 Ur Leukocyte Esterase Large (Negative) H 09/03/18 09:31 Urine Microscopic WBC 5-15 per hpf (0-3) H 09/03/18 09:31 Ur Squamous Epith Cells Many per lpf (None-Few) H 09/03/18 09:31 Ur Culture Indicated? NO. (NO) A 09/03/18 09:31 Consult Discharge Plan - Plan Referrals: NONE,PCP [Primary Care Provider] -
[2018-09-05] MEDS: Insulin LISPRO 300 UNITS/3 ML VIAL SQ SCH ×3 (09:39→17:11)
--- NOTE | 2018-09-05 10:35 | Urology Progress Note ---
<Cynthia Martinez N - Last Filed: 09/05/18 10:32> Date of Encounter: 09/05/18 Time of Encounter: 10:32 - Assessment and Plan (1) Acute cystitis Current Visit: Yes Status: Acute Qualifiers: Hematuria presence: without hematuria Qualified Code(s): N30.00 - Acute cystitis without hematuria (2) Hydronephrosis due to obstruction of ureter Current Visit: Yes Status: Acute Assessment and plan: Patient is 67-year-old female who presents the history of urinary tract infection and hydronephrosis. Patient is one day status post cystoscopy, retrograde ureteral pyelography, left double-J stent placement under fluoroscopic guidance and doing well. Vital signs are stable and afebrile. We will continue to follow. Progress Note Subjective: no new complaints, feels better Narrative: POD #1. Patient seen and examined sitting upright in bed in apparent distress. Patient states she is tolerating normal diet without nausea or vomiting. Patient states she is voiding without difficulty. Patient denies fever, chills, flank pain, gross hematuria. Objective Initial Vital Signs Temp Pulse Resp BP Pulse Ox 98.2 F 92 18 176/105 9 09/03/18 09:12 09/03/18 09:12 09/03/18 09:12 09/03/18 09:12 09/03/18 09:12 - General physical appearance Present: well developed, no distress, no pain - Respiratory Present: normal expansion - Abdomen Present: soft, non tender - Integumentary Present: no rash, no abnormal pigmentation - Musculoskeletal Present: normal posture - Psychiatric Present: oriented to time, oriented to person, oriented to place, speech is normal, memory intact - Labs 09/05/18 03:29 09/05/18 03:29 Diabetes panel 09/05/18 Range/Units 03:29 Sodium 137 (136-145) mEq/L Potassium 4.6 D (3.5-5.1) mEq/L Chloride 99 (98-107) mEq/L Carbon Dioxide 24 (23-29) mEq/L BUN 26 H (8-23) mg/dL Creatinine 2.03 H (0.60-1.20) mg/dL Glucose 207 H (70-105) mg/dL Calcium 8.5 L (8.6-10.3) mg/dL Calcium panel 09/05/18 09/05/18 Range/Units 03:29 03:29 Calcium 8.5 L (8.6-10.3) mg/dL Phosphorus 4.3 (2.7-4.5) mg/dL Pituitary panel 09/05/18 Range/Units 03:29 Sodium 137 (136-145) mEq/L Potassium 4.6 D (3.5-5.1) mEq/L Chloride 99 (98-107) mEq/L Carbon Dioxide 24 (23-29) mEq/L BUN 26 H (8-23) mg/dL Creatinine 2.03 H (0.60-1.20) mg/dL Glucose 207 H (70-105) mg/dL Calcium 8.5 L (8.6-10.3) mg/dL Adrenal panel 09/05/18 Range/Units 03:29 Sodium 137 (136-145) mEq/L Potassium 4.6 D (3.5-5.1) mEq/L Chloride 99 (98-107) mEq/L Carbon Dioxide 24 (23-29) mEq/L BUN 26 H (8-23) mg/dL Creatinine 2.03 H (0.60-1.20) mg/dL Glucose 207 H (70-105) mg/dL Calcium 8.5 L (8.6-10.3) mg/dL Consult Discharge Plan - Plan Referrals: NONE,PCP [Primary Care Provider] - <Bonilla Tyson - Last Filed: 09/05/18 17:03> Date of Encounter: 09/05/18 - Assessment and Plan (1) Hydronephrosis Current Visit: No Status: Acute Assessment and plan: Patient seen and examined independently. Agree with assessment and plan of JOE Ramsay. Left flank pain resolved on physical exam today s/p placement of left JJ stent yesterday. Plan: No further urologic interventions indicated at this time. Patient has outpatient stent changes already scheduled with our office for Q6 months. Qualifiers: Hydronephrosis type: unspecified Qualified Code(s): N13.30 - Unspecified h ydronephrosis (2) UTI (urinary tract infection) Current Visit: No Status: Acute Qualifiers: Urinary tract infection type: acute cystitis Hematuria presence: with hematuria Qualified Code(s): N30.01 - Acute cystitis with hematuria (3) Abdominal pain Current Visit: No Status: Chronic Qualifiers: Abdominal location: left upper quadrant Qualified Code(s): R10.12 - Left upper quadrant pain Objective Initial Vital Signs Temp Pulse Resp BP Pulse Ox 98.2 F 92 18 176/105 9 09/03/18 09:12 09/03/18 09:12 09/03/18 09:12 09/03/18 09:12 09/03/18 09:12 - Labs 09/05/18 03:29 09/05/18 03:29 Diabetes panel 09/05/18 Range/Units 03:29 Sodium 137 (136-145) mEq/L Potassium 4.6 D (3.5-5.1) mEq/L Chloride 99 (98-107) mEq/L Carbon Dioxide 24 (23-29) mEq/L BUN 26 H (8-23) mg/dL Creatinine 2.03 H (0.60-1.20) mg/dL Glucose 207 H (70-105) mg/dL Calcium 8.5 L (8.6-10.3) mg/dL Calcium panel 09/05/18 09/05/18 Range/Units 03:29 03:29 Calcium 8.5 L (8.6-10.3) mg/dL Phosphorus 4.3 (2.7-4.5) mg/dL Pituitary panel 09/05/18 Range/Units 03:29 Sodium 137 (136-145) mEq/L Potassium 4.6 D (3.5-5.1) mEq/L Chloride 99 (98-107) mEq/L Carbon Dioxide 24 (23-29) mEq/L BUN 26 H (8-23) mg/dL Creatinine 2.03 H (0.60-1.20) mg/dL Glucose 207 H (70-105) mg/dL Calcium 8.5 L (8.6-10.3) mg/dL Adrenal panel 09/05/18 Range/Units 03:29 Sodium 137 (136-145) mEq/L Potassium 4.6 D (3.5-5.1) mEq/L Chloride 99 (98-107) mEq/L Carbon Dioxide 24 (23-29) mEq/L BUN 26 H (8-23) mg/dL Creatinine 2.03 H (0.60-1.20) mg/dL Glucose 207 H (70-105) mg/dL Calcium 8.5 L (8.6-10.3) mg/dL
--- NOTE | 2018-09-05 13:32 | Nephrology Progress Note ---
Date of Encounter: 09/05/18 Time of Encounter: 13:30 - Assessment and Plan (1) ESRD (end stage renal disease) on dialysis Current Visit: Yes Status: Chronic Current regimen is Tuesday at [facility]. HD completed yesterday. Avoid nephrotoxins and renal dose all medications. (2) Altered mental status Current Visit: Yes Status: Acute Per primary. Qualifiers: Altered mental status type: disorientation Qualified Code(s): R41.82 - Altered mental status, unspecified (3) Anemia Current Visit: Yes Status: Chronic Goal hemoglobin is 10-11. Hemoglobin today is 11.3, stable. Qualifiers: Anemia type: unspecified type Qualified Code(s): D64.9 - Anemia, unspecified (4) Abdominal pain Current Visit: No Status: Acute Unknown etiology. Encouraged supportive care. Could be related to the hydronephrosis. Qualifiers: Abdominal location: generalized Qualified Code(s): R10.84 - Generalized abdominal pain (5) Hydronephrosis Current Visit: No Status: Acute Per urology. S/p stent placement. Qualifiers: Hydronephrosis type: unspecified Qualified Code(s): N13.30 - Unspecified hydronephrosis Subjective Principal diagnosis: Metabolic encephalopathy Interval history: Pt seen and examined, is more alert. Does recognize Dr. Patel but is trying to talk on the TV remote like a telephone. Objective - Vital Signs Vital signs: Vital Signs Temp Pulse Resp BP Pulse Ox 09/05/18 11:55 99.3 F 75 16 169/69 97 09/05/18 07:19 98.6 F 72 18 177/76 95 09/05/18 05:15 98 F 72 16 164/86 97 09/05/18 03:23 94 09/04/18 23:15 86 14 138/62 94 09/04/18 22:15 86 15 161/71 94 09/04/18 21:20 98.2 F 81 16 149/73 95 09/04/18 21:15 82 16 149/73 96 09/04/18 21:00 83 14 154/77 92 09/04/18 20:30 81 16 147/86 95 09/04/18 20:20 83 14 162/67 94 09/04/18 20:05 83 14 159/73 97 09/04/18 19:50 83 16 166/73 95 09/04/18 19:35 83 18 168/66 95 09/04/18 19:25 80 16 164/76 96 09/04/18 18:49 97.2 F L 82 16 158/74 98 09/04/18 18:39 80 16 162/71 97 09/04/18 18:29 82 16 147/79 98 09/04/18 18:19 97.6 F 83 16 172/84 97 09/04/18 18:09 82 16 173/98 98 09/04/18 17:59 83 16 173/94 99 09/04/18 17:49 97.2 F L 83 16 173/90 99 09/04/18 17:39 82 16 168/76 99 09/04/18 17:29 82 16 173/77 98 09/04/18 17:19 98 F 80 17 168/78 99 Intake and Output 09/04/18 09/05/18 09/05/18 23:59 07:59 15:59 Intake Total 0 / 0 360 / 360 Output Total 0 / 0 0 / 0 Balance 0 / 0 360 / 360 Intake: IV Fluids 360 / 360 Zovirax 500 MG In Dextrose 5% 260 / 260 250 ML @ 260 mls/hr IVPB Q24H YUSUF Rx#:[id number] Flagyl Premix 500 MG/100 ML 500 100 / 100 mg In 100 ml @ 100 mls/hr IVPB Q8HR YUSUF Rx#:[id number] Oral 0 / 0 0 / 0 Output: Urine 0 / 0 0 / 0 Estimated Blood Loss 0 / 0 Other: Weight 70.4 kg Blood Glucose* 290 190 66 Patient Weight 09/05/18 23:59 Weight 70.4 kg - General Appearance General appearance: Present: chronically ill, fatigue, frail EENT: Present: ATNC, hearing intact, vision intact Neck: Present: supple Respiratory: Present: clear Cardiology: Present: no edema, normal S1, normal S2 Dialysis Vascular Access: Arteriovenous Fistula thrill: Yes bruit: Yes Gastrointestinal: Present: normoactive bowel sounds, no tenderness, no guarding Integumentary: Present: no rash, warm and dry Neurologic: Present: alert and oriented x3 Musculoskeletal: Present: no deformities Psychiatric: Present: mood/affect appropriate, cooperative - Lab 09/05/18 03:29 09/05/18 03:29 Most recent lab results Calcium 8.5 mg/dL (8.6-10.3) L 09/05/18 03:29 Phosphorus 4.3 mg/dL (2.7-4.5) 09/05/18 03:29 Magnesium 2.0 mg/dL (1.6-2.6) 09/05/18 03:29 Consult Discharge Plan - Plan Referrals: NONE,PCP [Primary Care Provider] -
[2018-09-05] MEDS: cefTRIAXone 2,000 MG in Water for inj. (sterile) 20 ML 20 ML IVP SCH (14:41)
[2018-09-05] MEDS: Metoprolol XL (24 HR) Succ 25 MG TAB.ER.24H PO SCH (14:41)
[2018-09-05] MEDS: Sucralfate 1 GM TABLET PO SCH (17:57)
--- NOTE | 2018-09-05 18:54 | Internal Med Progress Note ---
Hospitalist Progress Note - Encounter Date of Encounter: 09/05/18 Time of Encounter: 11:00 - Subjective Interval History: Patient confused this morning although she is alert and oriented to person and place; patient was talking through the remote control this morning as if it a telephone. CT of the head was negative; patient is being treated for acute cystitis and is status post left double-J stent for left hydronephrosis - Exam Vitals: Temp Pulse Resp BP Pulse Ox 99.3 F 73 18 156/62 95 09/05/18 16:37 09/05/18 16:37 09/05/18 16:37 09/05/18 16:37 09/05/18 16:37 Exam: Gen.: Nonacute distress, alert and oriented to person and place but confused ENT: Mucosal membranes moist Respiratory: Lungs are clear to auscultation bilaterally without any wheezing rhonchi or rales Cardiovascular: Normal S1 and S2 regular rate rhythm no murmurs rubs or gallops Abdomen: Soft, nontender and nondistended with positive bowel sounds Extremities: No lower extremity edema Skin: Normal color - Assessment and Plan (1) Encephalopathy acute Current Visit: Yes Status: Acute Assessment and Plan: Acute encephalopathy of unclear etiology Recent admission in early July for the same Patient being treated for acute cystitis Head CT showed no acute findings (2) Acute cystitis Current Visit: Yes Status: Acute Assessment and Plan: Will continue day 3 of IV ceftriaxone (3) Colitis Current Visit: Yes Status: Acute Assessment and Plan: CT/CT abd pelvis showed nonspecific wall thickening and edema of the sigmoid colon, stable. GI consulted and does not suspect infectious colitis that residual changes from prior diagnosis ischemic colitis. Flagyl was therefore discontinued (4) Hydronephrosis due to obstruction of ureter Current Visit: Yes Status: Acute Assessment and Plan: Patient with new left-sided hydronephrosis setting of suspected UTI with a bdominal discomfort Urology was consulted and patient now postop day 2 left double-J stent placement (5) Abdominal pain Current Visit: No Status: Acute Assessment and Plan: Suspect multifactorial secondary to colitis vs cistitis vs nephrolitiasis with hydronephrosis. Abdominal CT on admission showed persistent wall thickening of the urinary bladder with interval development of left-sided hydronephrosis in addition to nonspecific wall thickening/edema of sigmoid colon which is stable. Patient's abdominal exam benign this morning; continue to monitor (6) ESRD (end stage renal disease) on dialysis Current Visit: No Status: Chronic Assessment and Plan: Nephrology consulted and appreciate recommendations (7) CAD (coronary artery disease) of artery bypass graft Current Visit: No Status: Chronic Assessment and Plan: Continue home medications (8) Hypertension Current Visit: No Status: Chronic Assessment and Plan: Controlled; continue home medications (9) Hypothyroidism Current Visit: No Status: Chronic Assessment and Plan: Continue home dose of levothyroxine (10) Insulin dependent diabetes mellitus Current Visit: No Status: Chronic Assessment and Plan: Coverage with sliding-scale insulin DVT Prophylaxis: Heparin subcutaneous - Time Spent with Patient Total time spent is greater than 50% in coordination of care (as documented) at patient's floor/unit and/or counseling patient: Internal Medicine: Result - Labs CBC & Chem 7: 09/06/18 07:03 09/06/18 07:03 Labs: Short CBC 09/05/18 Range/Units 03:29 WBC 5.5 (4.3-11.1) K/mcL Hgb 11.3 L (11.5-15.4) g/dL Hct 35.4 (35.3-44.9) % Plt Count 259 (140-400) K/mcL Neutrophils # 4.3 (1.6-8.9) K/mcL BMP 09/05/18 03:29 Sodium 137 Potassium 4.6 D Chloride 99 Carbon Dioxide 24 BUN 26 H Creatinine 2.03 H Glucose 207 H Calcium 8.5 L - ABG Interpretation ABG results: PT/INR, D-dimer PT 12.3 Seconds (9.4-12.1) H 09/03/18 09:30 - Impressions Impressions Retrograde Pyelogram 09/04/18 16:55 IMPRESSION: Intraprocedural fluoroscopic spot images as above. See separate procedure report for more information. D/ / 09/04/2018 18:54:48 Alistair Steele MD / saúl Interpreting Provider: Alistair Steele MD Consult Discharge Plan - Plan Referrals: NONE,PCP [Primary Care Provider] - (2) Acute cystitis Qualifiers: Hematuria presence: without hematuria Qualified Code(s): N30.00 - Acute cystitis without hematuria (5) Abdominal pain Qualifiers: Abdominal location: generalized Qualified Code(s): R10.84 - Generalized abdominal pain (7) CAD (coronary artery disease) of artery bypass graft Qualifiers: [place] vs. transplanted heart: [place] heart Associated angina: without angina Qualified Code(s): I25.810 - Atherosclerosis of coronary artery bypass graft(s) without angina pectoris (8) Hypertension Qualifiers: Hypertension type: unspecified Qualified Code(s): I10 - Essential (primary) hypertension (9) Hypothyroidism Qualifiers: Hypothyroidism type: unspecified Qualified Code(s): E03.9 - Hypothyroidism, unspecified
[2018-09-05] MEDS: Mirtazapine 15 MG TABLET PO SCH (21:32)
[2018-09-06] MEDS: *HR* HYDROcodone/Acet 5/325 mg TABLET PO PRN ×2 (04:35→17:14)
[2018-09-06] MEDS: Sucralfate 1 GM TABLET PO SCH ×2 (05:52→17:14)
[2018-09-06] MEDS: *HR* Heparin 5,000 UNIT/ML VIAL SQ SCH ×2 (05:57→18:35)
[2018-09-06 07:28] LABS: Basophils % 0.4 %; Eosinophils # 0.1 K/mcL (0.0-0.6); Eosinophils % 1.8 %; Hemoglobin 10.8 g/dL (11.5-15.4); Immature Granulocytes % 0.2 % (0-4); Lymphocytes # 1.7 K/mcL (0.6-4.6); Lymphocytes % 29.7 %; Mean Corpuscular HGB Conc 31.8 g/dL (31.6-35.5); Mean Corpuscular Hemoglobin 30.7 pg (28.0-33.3); Mean Corpuscular Volume 96.6 fL (83.0-100.0); Monocytes # 0.6 K/mcL (0.0-1.3); Monocytes % 11.1 %; Neutrophils # 3.2 K/mcL (1.6-8.9); Platelet Count 226 K/mcL (140-400); Red Blood Count 3.52 M/mcL (3.82-4.97); Red Cell Distribution Width 14.5 % (11.5-14.5); Segmented Neutrophils % 56.8 %
[2018-09-06 07:41] LABS: Calcium 8.6 mg/dL (8.6-10.3); Potassium 4.5 mEq/L (3.5-5.1)
[2018-09-06] MEDS ORDERED: 0.9 % Sodium Chloride 250 ML IVC PRN (08:21)
[2018-09-06] MEDS ORDERED: 0.9 % Sodium Chloride 1,000 ML PRIME SCH (08:30)
[2018-09-06] MEDS: Renal Vitamin 1 CAP CAPSULE PO SCH (08:45)
[2018-09-06] MEDS: Furosemide 20 MG TABLET PO SCH (08:45)
[2018-09-06] MEDS: Aspirin 81 MG TAB.CHEW PO SCH (08:46)
[2018-09-06] MEDS: Folic Acid 1 MG TABLET PO SCH (08:46)
[2018-09-06] MEDS: Insulin LISPRO 300 UNITS/3 ML VIAL SQ SCH ×3 (08:50→17:14)
[2018-09-06] MEDS: Psyllium 1 PACKET POWD.PACK PO SCH (08:51)
--- NOTE | 2018-09-06 08:57 | Internal Med Progress Note ---
Hospitalist Progress Note - Encounter Date of Encounter: 09/06/18 Time of Encounter: 11:00 - Subjective Interval History: Patient was confused yesterday morning although she is alert and oriented to person and place; patient was talking through the remote control this morning as if it a telephone. CT of the head was negative; patient is being treated for acute cystitis and is status post left double-J stent for left hydronephrosis - Exam Vitals: Temp Pulse Resp BP Pulse Ox 98.4 F 76 18 170/66 95 09/06/18 07:36 09/06/18 07:36 09/06/18 07:36 09/06/18 07:36 09/06/18 07:36 Exam: Gen.: Nonacute distress, alert and oriented to person and place but confused ENT: Mucosal membranes moist Respiratory: Lungs are clear to auscultation bilaterally without any wheezing rhonchi or rales Cardiovascular: Normal S1 and S2 regular rate rhythm no murmurs rubs or gallops Abdomen: Soft, nontender and nondistended with positive bowel sounds Extremities: No lower extremity edema Skin: Normal color - Assessment and Plan (1) Encephalopathy acute Current Visit: Yes Status: Acute Assessment and Plan: Acute encephalopathy of unclear etiology Recent admission in early July for the same Patient being treated for acute cystitis Head CT showed no acute findings (2) Acute cystitis Current Visit: Yes Status: Acute Assessment and Plan: Will continue day 4 of IV ceftriaxone (3) Colitis Current Visit: Yes Status: Acute Assessment and Plan: CT/CT abd pelvis showed nonspecific wall thickening and edema of the sigmoid colon, stable. GI consulted and does not suspect infectious colitis that residual changes from prior diagnosis ischemic colitis. Flagyl was therefore discontinued on 09/05/18 (4) Hydronephrosis due to obstruction of ureter Current Visit: Yes Status: Acute Assessment and Plan: Patient with new left-sided hydronephrosis setting of suspected UTI with abdominal discomfort Urology was consulted and patient now postop day 3 left double-J stent placement (5) Abdominal pain Current Visit: No Status: Acute Assessment and Plan: Suspect multifactorial secondary to colitis vs cystitis vs nephrolitiasis with hydronephrosis. Abdominal CT on admission showed persistent wall thickening of the urinary bladder with interval development of left-sided hydronephrosis in addition to nonspecific wall thickening/edema of sigmoid colon which is stable. Patient's abdominal exam benign this morning; continue to monitor (6) ESRD (end stage renal disease) on dialysis Current Visit: No Status: Chronic Assessment and Plan: Creatinine worsening this morning at 2.81 from 2.03 yesterday Nephrology consulted and appreciate recommendations (7) CAD (coronary artery disease) of artery bypass graft Current Visit: No Status: Chronic Assessment and Plan: Continue home medications (8) Hypertension Current Visit: No Status: Chronic Assessment and Plan: Controlled; continue home medications (9) Hypothyroidism Current Visit: No Status: Chronic Assessment and Plan: Continue home dose of levothyroxine (10) Insulin dependent diabetes mellitus Current Visit: No Status: Chronic Assessment and Plan: Coverage with sliding-scale insulin DVT Prophylaxis: Heparin subcutaneous - Time Spent with Patient Total time spent is greater than 50% in coordination of care (as documented) at patient's floor/unit and/or counseling patient: Internal Medicine: Result - Labs CBC & Chem 7: 09/06/18 07:03 09/06/18 07:03 Labs: Short CBC 09/06/18 Range/Units 07:03 WBC 5.7 (4.3-11.1) K/mcL Hgb 10.8 L (11.5-15.4) g/dL Hct 34.0 L (35.3-44.9) % Plt Count 226 (140-400) K/mcL Neutrophils # 3.2 (1.6-8.9) K/mcL BMP 09/06/18 07:03 Sodium 135 L Potassium 4.5 Chloride 101 Carbon Dioxide 24 BUN 43 H Creatinine 2.81 H Glucose 151 H Calcium 8.6 - ABG Interpretation ABG results: PT/INR, D-dimer PT 12.3 Seconds (9.4-12.1) H 09/03/18 09:30 Consult Discharge Plan - Plan Referrals: NONE,PCP [Primary Care Provider] - Prescriptions: Cefdinir [Omnicef] 300 mg PO BID 5 Days #10 capsule OxyCODONE/APAP 5/325 [Percocet 5/325 MG] 1 tab PO TID PRN 3 Days #9 tablet PRN Reason: Pain (2) Acute cystitis Qualifiers: Hematuria presence: without hematuria Qualified Code(s): N30.00 - Acute cystitis without hematuria (5) Abdominal pain Qualifiers: Abdominal location: generalized Qualified Code(s): R10.84 - Generalized abdominal pain (7) CAD (coronary artery disease) of artery bypass graft Qualifiers: [place] vs. transplanted heart: [place] heart Associated angina: without angina Qualified Code(s): I25.810 - Atherosclerosis of coronary artery bypass graft(s) without angina pectoris (8) Hypertension Qualifiers: Hypertension type: unspecified Qualified Code(s): I10 - Essential (primary) hypertension (9) Hypothyroidism Qualifiers: Hypothyroidism type: unspecified Qualified Code(s): E03.9 - Hypothyroidism, unspecified
--- NOTE | 2018-09-06 09:02 | Urology Progress Note ---
<Cynthia Martinez N - Last Filed: 09/06/18 09:00> Date of Encounter: 09/06/18 Time of Encounter: 08:30 - Assessment and Plan (1) Acute cystitis Current Visit: Yes Status: Acute Assessment and plan: Patient is a 67-year-old female who presents with history of acute cystitis. Vital signs are stable and afebrile. White blood cell count is reassuring. Blood cultures are negative. Qualifiers: Hematuria presence: without hematuria Qualified Code(s): N30.00 - Acute cystitis without hematuria (2) Hydronephrosis due to obstruction of ureter Current Visit: Yes Status: Acute Assessment and plan: Patient is a 67-year-old female who presents the history of new onset left hydronephrosis with left ureteral obstruction. Patient is 2 days status post Cystoscopy, retrograde ureteral pyelography, left double-J stent placement under fluoroscopic guidance. Patient is recovering well and states flank pain is resolved. Renal function appears to be slightly worsened from yesterday. GFR is from 29 to 20. Creatinine is now 2.81. Patient is receiving dialysis. (3) Altered mental status Current Visit: Yes Status: Acute Assessment and plan: Patient is a 67-year-old female who presents the history of altered mental status. I expressed my concern with patient's nurse. Patient's nurse states she will contact primary team for intervention. Nurse reports mental status has gone from pleasantly confused to paranoia. Yesterday, patient was able to recognize me and remember me from prior encounters, and today, patient is unsure which service I am with. Qualifiers: Altered mental status type: delirium Qualified Code(s): R41.0 - Disorientation, unspecified Progress Note Subjective: no new complaints Narrative: POD #2. Patient seen and examined sitting upright in bed eating breakfast. Patient denies flank pain or gross hematuria. She states she is voiding well without difficulty. Patient's mental status has changed since yesterday everton coreas, as she appears to be paranoid stating there are people watching her through the television and through her remote control. Objective Initial Vital Signs Temp Pulse Resp BP Pulse Ox 98.2 F 92 18 176/105 9 09/03/18 09:12 09/03/18 09:12 09/03/18 09:12 09/03/18 09:12 09/03/18 09:12 - General physical appearance Present: well developed, well nourished, no distress, no pain - Respiratory Present: normal expansion, normal respiratory effort - Abdomen Present: soft, non tender - Integumentary Present: no rash, no abnormal pigmentation - Musculoskeletal Present: normal posture - Psychiatric Present: oriented to time, oriented to person, speech is normal, other (Patient appears paranoid and does not recognize which service I am with). Absent: oriented to place - Labs 09/06/18 07:03 09/06/18 07:03 Diabetes panel 09/06/18 Range/Units 07:03 Sodium 135 L (136-145) mEq/L Potassium 4.5 (3.5-5.1) mEq/L Chloride 101 (98-107) mEq/L Carbon Dioxide 24 (23-29) mEq/L BUN 43 H (8-23) mg/dL Creatinine 2.81 H (0.60-1.20) mg/dL Glucose 151 H (70-105) mg/dL Calcium 8.6 (8.6-10.3) mg/dL Calcium panel 09/06/18 Range/Units 07:03 Calcium 8.6 (8.6-10.3) mg/dL Pituitary panel 09/06/18 Range/Units 07:03 Sodium 135 L (136-145) mEq/L Potassium 4.5 (3.5-5.1) mEq/L Chloride 101 (98-107) mEq/L Carbon Dioxide 24 (23-29) mEq/L BUN 43 H (8-23) mg/dL Creatinine 2.81 H (0.60-1.20) mg/dL Glucose 151 H (70-105) mg/dL Calcium 8.6 (8.6-10.3) mg/dL Adrenal panel 09/06/18 Range/Units 07:03 Sodium 135 L (136-145) mEq/L Potassium 4.5 (3.5-5.1) mEq/L Chloride 101 (98-107) mEq/L Carbon Dioxide 24 (23-29) mEq/L BUN 43 H (8-23) mg/dL Creatinine 2.81 H (0.60-1.20) mg/dL Glucose 151 H (70-105) mg/dL Calcium 8.6 (8.6-10.3) mg/dL Consult Discharge Plan - Plan Referrals: NONE,PCP [Primary Care Provider] - Prescriptions: Cefdinir [Omnicef] 300 mg PO BID 5 Days #10 capsule OxyCODONE/APAP 5/325 [Percocet 5/325 MG] 1 tab PO TID PRN 3 Days #9 tablet PRN Reason: Pain <Bonilla Tyson - Last Filed: 09/07/18 08:53> Date of Encounter: 09/06/18 - Assessment and Plan (1) Hydronephrosis Current Visit: No Status: Acute Assessment and plan: Patient seen and examined independently. Agreement with PA findings. No further urologic interventions indicated at this time. Signing off. Patient will keep scheduled follow-up for 6 months and changes in our office. Qualifiers: Hydronephrosis type: unspecified Qualified Code(s): N13.30 - Unspecified hydronephrosis (2) UTI (urinary tract infection) Current Visit: No Status: Acute Qualifiers: Urinary tract infection type: acute cystitis Hematuria presence: with hematuria Qualified Code(s): N30.01 - Acute cystitis with hematuria (3) Abdominal pain Current Visit: No Status: Chronic Qualifiers: Abdominal location: left upper quadrant Qualified Code(s): R10.12 - Left upper quadrant pain Objective Initial Vital Signs Temp Pulse Resp BP Pulse Ox 98.2 F 92 18 176/105 9 09/03/18 09:12 09/03/18 09:12 09/03/18 09:12 09/03/18 09:12 09/03/18 09:12 - Labs 09/06/18 07:03 09/06/18 07:03
--- NOTE | 2018-09-06 11:47 | Nephrology Progress Note ---
Date of Encounter: 09/06/18 Time of Encounter: 11:45 - Assessment and Plan (1) ESRD (end stage renal disease) on dialysis Current Visit: Yes Status: Chronic Current regimen is Tuesday at [facility]. HD in progress today. Avoid nephrotoxins and renal dose all medications. (2) Altered mental status Current Visit: Yes Status: Acute Per primary. Qualifiers: Altered mental status type: delirium Qualified Code(s): R41.0 - Disorientation, unspecified (3) Anemia Current Visit: Yes Status: Chronic Goal hemoglobin is 10-11. Hemoglobin today is 10.8, stable. Qualifiers: Anemia type: unspecified type Qualified Code(s): D64.9 - Anemia, unspecified (4) Abdominal pain Current Visit: No Status: Acute Appears resolved. Qualifiers: Abdominal location: generalized Qualified Code(s): R10.84 - Generalized abdominal pain (5) Hydronephrosis Current Visit: No Status: Acute Per urology. S/p stent placement. Qualifiers: Hydronephrosis type: unspecified Qualified Code(s): N13.30 - Unspecified hydronephrosis Subjective Principal diagnosis: Metabolic encephalopathy Interval history: Pt seen and examined during HD, tolerating well. Denies any CP or SOB. Is much more alert today. Objective - Vital Signs Vital signs: Vital Signs Temp Pulse Resp BP Pulse Ox 09/06/18 11:05 111/48 09/06/18 10:50 94/42 09/06/18 10:35 122/70 09/06/18 10:20 147/74 09/06/18 10:05 147/74 09/06/18 09:50 145/76 09/06/18 09:35 97.8 F 18 158/70 09/06/18 07:36 98.4 F 76 18 170/66 95 09/06/18 03:58 99.1 F 74 15 167/74 95 09/05/18 20:56 99.8 F H 76 15 150/62 94 09/05/18 16:37 99.3 F 73 18 156/62 95 09/05/18 11:55 99.3 F 75 16 169/69 97 Intake and Output 09/05/18 09/06/18 09/06/18 23:59 07:59 15:59 Intake Total 0 / 0 0 / 0 720 / 720 Balance 0 / 0 0 / 0 720 / 720 Intake: Oral 0 / 0 0 / 0 120 / 120 Intake, Rinseback and Flushes 600 / 600 Other: Meal Breakfast Percent of Meal Consumed 95% # Urine Diapers 1 1 1 Weight 70.2 kg Blood Glucose* 261 131 Hemodialysis Net Fluid Removed 1806 (mL) Patient Weight 09/06/18 23:59 Weight 70.2 kg - General Appearance General appearance: Present: fatigue, frail EENT: Present: ATNC, hearing intact, vision intact Neck: Present: supple Respiratory: Present: clear Cardiology: Present: no edema, normal S1, normal S2 Dialysis Vascular Access: Arteriovenous Fistula thrill: Yes bruit: Yes Gastrointestinal: Present: normoactive bowel sounds, no tenderness, no guarding Integumentary: Present: no rash, warm and dry Neurologic: Present: alert and oriented x3 Psychiatric: Present: mood/affect appropriate, cooperative - Lab 09/06/18 07:03 09/06/18 07:03 Most recent lab results Calcium 8.6 mg/dL (8.6-10.3) 09/06/18 07:03 Phosphorus 4.3 mg/dL (2.7-4.5) 09/05/18 03:29 Magnesium 2.0 mg/dL (1.6-2.6) 09/05/18 03:29 Consult Discharge Plan - Plan Referrals: NONE,PCP [Primary Care Provider] -
[2018-09-06] MEDS ORDERED: 0.9 % Sodium Chloride 1,000 ML ONE (12:29)
[2018-09-06] MEDS: cefTRIAXone 2,000 MG in Water for inj. (sterile) 20 ML 20 ML IVP SCH (13:13)
[2018-09-06] MEDS: traMADol 50 MG TABLET PO PRN (20:57)
[2018-09-06] MEDS: Mirtazapine 15 MG TABLET PO SCH (20:57)
[2018-09-07] MEDS: Ondansetron 4 MG/2 ML VIAL IVP PRN ×2 (00:26→09:10)
[2018-09-07] MEDS: *HR* Heparin 5,000 UNIT/ML VIAL SQ SCH (05:48)
[2018-09-07] MEDS: *HR* HYDROcodone/Acet 5/325 mg TABLET PO PRN (05:48)
[2018-09-07 07:11] VITALS: BP 109/62
[2018-09-07] MEDS: Sucralfate 1 GM TABLET PO SCH (08:35)
[2018-09-07] MEDS: Furosemide 20 MG TABLET PO SCH (08:35)
[2018-09-07] MEDS: Folic Acid 1 MG TABLET PO SCH (08:35)
[2018-09-07] MEDS: Aspirin 81 MG TAB.CHEW PO SCH (08:36)
[2018-09-07] MEDS: Psyllium 1 PACKET POWD.PACK PO SCH (08:37)
[2018-09-07] MEDS: Insulin LISPRO 300 UNITS/3 ML VIAL SQ SCH ×2 (08:38→12:07)
[2018-09-07] MEDS: Renal Vitamin 1 CAP CAPSULE PO SCH (09:09)
[2018-09-07] MEDS: Metoprolol XL (24 HR) Succ 25 MG TAB.ER.24H PO SCH (09:09)
--- NOTE | 2018-09-07 10:57 | Nephrology Progress Note ---
Date of Encounter: 09/07/18 Time of Encounter: 10:55 - Assessment and Plan (1) ESRD (end stage renal disease) on dialysis Current Visit: Yes Status: Chronic Current regimen is Tuesday at [facility]. HD completed yesterday. Avoid nephrotoxins and renal dose all medications. (2) Altered mental status Current Visit: Yes Status: Acute Appears resolved, per primary. Qualifiers: Altered mental status type: delirium Qualified Code(s): R41.0 - Disorientation, unspecified (3) Anemia Current Visit: Yes Status: Chronic Goal hemoglobin is 10-11. No new labs for today. Qualifiers: Anemia type: unspecified type Qualified Code(s): D64.9 - Anemia, unspecified (4) Abdominal pain Current Visit: No Status: Acute Appears resolved. Qualifiers: Abdominal location: generalized Qualified Code(s): R10.84 - Generalized abdominal pain (5) Hydronephrosis Current Visit: No Status: Acute Per urology. S/p stent placement. Qualifiers: Hydronephrosis type: unspecified Qualified Code(s): N13.30 - Unspecified hydronephrosis Subjective Principal diagnosis: Metabolic encephalopathy Interval history: Pt seen and examined doing well. Is more alert and oriented. Denies CP or SOB. Objective - Vital Signs Vital signs: Vital Signs Temp Pulse Resp BP Pulse Ox 09/07/18 07:05 98.1 F 77 16 109/62 98 09/07/18 05:18 98.4 F 76 16 114/54 95 09/06/18 21:59 96 09/06/18 19:18 98.8 F 76 18 133/65 96 09/06/18 16:54 98.2 F 85 18 106/63 97 09/06/18 13:16 97.4 F L 18 124/57 09/06/18 12:35 94/44 09/06/18 12:20 90/48 09/06/18 12:05 119/51 09/06/18 11:50 110/45 09/06/18 11:35 115/69 09/06/18 11:20 86/56 09/06/18 11:05 111/48 Intake and Output 09/06/18 09/07/18 09/07/18 23:59 07:59 15:59 Intake Total 240 / 240 0 / 0 120 / 120 Output Total 100 / 100 100 / 100 Balance 240 / 240 -100 / -100 20 / 20 Intake: Oral 240 / 240 0 / 0 120 / 120 Output: Urine 100 / 100 100 / 100 Other: Meal Dinner Breakfast Percent of Meal Consumed 95% 95% Stool Size Moderate Stool Consistency formed Stool Color Brown Yellow # Voids 0 # Bowel Movements 1 Weight 69.7 kg Blood Glucose* 329 198 Patient Weight 09/07/18 23:59 Weight 69.7 kg - General Appearance General appearance: Present: well-developed, well-nourished EENT: Present: ATNC, hearing intact, vision intact Neck: Present: supple Respiratory: Present: clear Cardiology: Present: edema (Trace bilat lower extremity edema), normal S1, normal S2 Dialysis Vascular Access: Arteriovenous Fistula thrill: Yes bruit: Yes Gastrointestinal: Present: normoactive bowel sounds, no tenderness, no guarding Integumentary: Present: no rash, warm and dry Neurologic: Present: alert and oriented x3 Psychiatric: Present: mood/affect appropriate, cooperative - Lab 09/06/18 07:03 09/06/18 07:03 Most recent lab results Calcium 8.6 mg/dL (8.6-10.3) 09/06/18 07:03 Phosphorus 4.3 mg/dL (2.7-4.5) 09/05/18 03:29 Magnesium 2.0 mg/dL (1.6-2.6) 09/05/18 03:29 Consult Discharge Plan - Plan Referrals: NONE,PCP [Primary Care Provider] - Prescriptions: Cefdinir [Omnicef] 300 mg PO BID 5 Days #10 capsule OxyCODONE/APAP 5/325 [Percocet 5/325 MG] 1 tab PO TID PRN 3 Days #9 tablet PRN Reason: Pain
[2018-09-07] MEDS: traMADol 50 MG TABLET PO PRN (12:03)
--- NOTE | 2018-09-07 13:13 | Discharge Summary ---
- NOTES TO OUTPATIENT PROVIDER Notes to Outpatient Provider: none Orders not resulted at time of discharge: Pending orders 09/03/18 10:24 Culture,Blood [BC] Stat Date of Encounter: 09/07/18 Time of Encounter: 11:00 - Discharge Diagnosis (1) Encephalopathy acute Priority: Primary Status: Acute (2) Acute cystitis Priority: Primary Status: Acute Qualifiers: Hematuria presence: without hematuria Qualified Code(s): N30.00 - Acute cystitis without hematuria (3) Colitis Priority: Primary Status: Acute (4) Hydronephrosis due to obstruction of ureter Priority: Primary Status: Acute (5) Abdominal pain Priority: Primary Status: Acute Qualifiers: Abdominal location: generalized Qualified Code(s): R10.84 - Generalized abdominal pain (6) ESRD (end stage renal disease) on dialysis Priority: Secondary Status: Chronic (7) CAD (coronary artery disease) of artery bypass graft Priority: Secondary Status: Chronic Qualifiers: [place] vs. transplanted heart: [place] heart Associated angina: without angina Qualified Code(s): I25.810 - Atherosclerosis of coronary artery bypass graft(s) without angina pectoris (8) Hypertension Priority: Secondary Status: Chronic Qualifiers: Hypertension type: unspecified Qualified Code(s): I10 - Essential (primary) hypertension (9) Hypothyroidism Priority: Secondary Status: Chronic Qualifiers: Hypothyroidism type: unspecified Qualified Code(s): E03.9 - Hypothyroidism, unspecified (10) Insulin dependent diabetes mellitus Priority: Secondary Status: Chronic Hospital course: Patient is a 67-year-old female with past medical history significant for arthritis, cancer, coronary artery disease, diabetes, dialysis, GERD, hyperlipidemia, hypertension, myocardial infarction, and ESRD (due to altered mental state unable to determine which days she gets dialysis). Patient presented to [facility] from an ECF with changes and altered mental status. Son at bedside reports the ECF notified him that his mother was becoming confused and having intractable abdominal pain. She was recently seen and treated at [facility] for a urinary tract infection, right hydronephrosis and ischemic colitis. In the ER CT of abdomen and pelvis did reveal persistent thickening of the urinary bladder, development of left-sided hydroureteronephrosis with ureteral narrowing of the ureterovesicular junction and nonspecific edema of the sigmoid colon with thickening. During patients hospital stay GI was consulted for concerns of colitis on CT but she was suspected to have residual changes from prior diagnosis colitis therefore Flagyl was discontinued. Urology was consulted with recommendations for left double-J stent placement under fluoroscopic guidance and IV antibiotics was continued. Patients altered mental status resolved on IV ceftriaxone which was changed to Omnicef which patient will complete a 5 day course of at the [facility]. - Time Spent with Patient Total time spent providing and/or coordinating discharge services: Less than 30 minutes - Discharge Medications Prescriptions: Cefdinir [Omnicef] 300 mg PO BID 5 Days #10 capsule OxyCODONE/APAP 5/325 [Percocet 5/325 MG] 1 tab PO TID PRN 3 Days #9 tablet PRN Reason: Pain Home Medications: Folic Acid 1 mg PO DAILY 07/10/15 [History] Levothyroxine [Synthroid] 50 mcg PO 0630 07/10/15 [History] Pantoprazole Sodium [Protonix] 40 mg PO BID 07/10/15 [History] Docusate [Colace] 100 mg PO BID 10/14/16 [History] Albuterol Sulfate [Proair Hfa] 2 puff IH Q4H PRN 03/17/17 [History] Atorvastatin [Lipitor] 40 mg PO HS 03/17/17 [History] Clopidogrel [Plavix] 75 mg PO DAILY 05/09/17 [History] Sucralfate [Carafate] 1 gm PO 0730,1630 05/09/17 [History] Furosemide [Lasix] 20 mg PO DAILY 03/01/18 [History] Amitriptyline [Elavil] 25 mg PO HS 03/26/18 [History] Ergocalciferol (VITAMIN D2) [Drisdol] 50,000 unit PO MO 03/26/18 [History] Insulin ASPART [NovoLOG] 2 - 12 unit SQ TID 03/26/18 [History] Insulin DETEMIR [Levemir] 12 unit SQ QAM 03/26/18 [History] Tamsulosin [Flomax] 0.4 mg PO DAILY 03/26/18 [History] Zolpidem [Ambien] 5 mg PO HS 03/26/18 [History] Lactobacillus Combination No.8 [Adult Probiotic] 1 cap PO DAILY 05/04/18 [History] Pramipexole Di-HCl [Pramipexole Dihydrochloride] 0.125 mg PO HS 05/04/18 [History] Promethazine [Phenergan] 25 mg PO TID PRN 05/04/18 [History] Psyllium Husk [Daily Fiber] 0.52 gm PO DAILY 05/04/18 [History] SUMAtriptan Succinate [Imitrex] 6 mg SQ BID PRN 05/04/18 [History] Baclofen [Lioresal] 10 mg PO TID PRN 07/31/18 [History] Lisinopril [Zestril] 20 mg PO SUTUTHSA 07/31/18 [History] Mirtazapine [Remeron] 15 mg PO HS 07/31/18 [History] Insulin DETEMIR [Levemir Flextouch] 14 unit SQ QPM 08/06/18 [History] Aspirin Enteric Coated [Aspirin EC] 81 mg PO DAILY 09/04/18 [History] Calcium Carbonate [Calcium] 500 mg PO BID 09/04/18 [History] Folic Acid/Vit Bcomp,C [Renal Vitamin Tablet] 0.8 mg PO DAILY 09/04/18 [History] Metoprolol XL (24 HR) Succ [Toprol Xl] 12.5 mg PO SUTUTHSA 09/04/18 [History] Midodrine [ProAmatine] 5 mg PO MOWEFR 09/04/18 [History] Oxybutynin Chloride [Ditropan Xl] 10 mg PO DAILY 09/04/18 [History] Cefdinir [Omnicef] 300 mg PO BID 5 Days #10 capsule 09/06/18 [Rx] OxyCODONE/APAP 5/325 [Percocet 5/325 MG] 1 tab PO TID PRN 3 Days #9 tablet 09/06/18 [Rx] Cefdinir [Omnicef] 300 mg PO HS capsule 09/07/18 [Rx] Allergies/Adverse Reactions: Allergy/AdvReac Type Severity Reaction Status Date / Time adhesive tape Allergy Redness of Verified 07/15/18 11:57 Skin latex Allergy Swelling Verified 07/15/18 11:57 of Lip/Tongue/Throat Sulfa (Sulfonamide Allergy Rash Verified 07/15/18 11:57 Antibiotics) Date of admission: 09/04/18 17:14 Primary care physician: PCP NONE Consults: 09/03/18 14:33 Consult to Lab Associate [CONS] Routine Reason for SW Consult: d/c planning 09/03/18 14:48 Consult to Urology [CONS] Routine Consulting Provider: Urology Julianne Reason for Consult: left-sided hydroureteronephrosis; no obvious calculus identified however the distal ureter appears narrowed at ureterovesicular junction Call Completed: No 09/03/18 15:50 Consult to Nephrology [CONS] Routine Consulting Provider: Kidney Julianne/FLORENTIN/KIERRA/PEACE Reason for Consult: ESRD follows with julianne nephrology Call Completed: No 09/03/18 17:31 Consult to Nutrition [CONS] Routine Comment: Consulting Provider: NUTRITION Reason for Dietary Consult: MST Score 09/04/18 11:00 Consult to Dialysis [CONS] ONCE 09/04/18 11:20 Consult to Gastroenterology [CONS] Routine Consulting Provider: Gastroenterology Julianne Reason for Consult: colitis Call Completed: No 09/04/18 11:46 Consult to Neurology [CONS] Routine Consulting Provider: [facility] Reason for Consult: sudden onset of change in mental status Call Completed: No 09/05/18 14:58 Consult to Occupational Therapy [CONS] Routine Comment: Evaluate, develop and implement POC Reason for Consult: Assess for possible SNF at discharge Does patient have active BEDREST order?: No Is patient medically & hemodynamically stable?: Yes Consult to Physical Therapy [CONS] Routine Comment: Evaluate, develop and implement POC Reason for Consult: Assess for possible SNF at discharge Does patient have active BEDREST order?: No Is patient medically & hemodynamically stable?: Yes 09/06/18 08:30 Consult to Dialysis [CONS] ONCE - Constitutional Vitals: Temp Pulse Resp BP Pulse Ox 98.1 F 77 16 109/62 98 09/07/18 07:05 09/07/18 07:05 09/07/18 07:05 09/07/18 07:05 09/07/18 07:05 General appearance: Present: A&O X 1 Exam: Gen.: Nonacute distress, alert and oriented 3 Skin: Normal color - Patient Status Disposition: Transfer SNF Condition: Fair - Discharge Instructions Follow Up With: NONE,PCP [Primary Care Provider] -
--- NOTE | 2018-09-07 13:15 | Physician Discharge Referral ---
ExtendedCare Referral Info Institutional Level of Care: Skilled - Diagnosis (1) Encephalopathy acute Status: Acute (2) Acute cystitis Status: Acute (3) Colitis Status: Acute (4) Hydronephrosis due to obstruction of ureter Status: Acute (5) Abdominal pain Status: Acute (6) ESRD (end stage renal disease) on dialysis Status: Chronic (7) CAD (coronary artery disease) of artery bypass graft Status: Chronic (8) Hypertension Status: Chronic (9) Hypothyroidism Status: Chronic (10) Insulin dependent diabetes mellitus Status: Chronic - Transfer Medications Prescriptions: Cefdinir [Omnicef] 300 mg PO BID 5 Days #10 capsule OxyCODONE/APAP 5/325 [Percocet 5/325 MG] 1 tab PO TID PRN 3 Days #9 tablet PRN Reason: Pain Home Medications: Folic Acid 1 mg PO DAILY 07/10/15 [History] Levothyroxine [Synthroid] 50 mcg PO 0630 07/10/15 [History] Pantoprazole Sodium [Protonix] 40 mg PO BID 07/10/15 [History] Docusate [Colace] 100 mg PO BID 10/14/16 [History] Albuterol Sulfate [Proair Hfa] 2 puff IH Q4H PRN 03/17/17 [History] Atorvastatin [Lipitor] 40 mg PO HS 03/17/17 [History] Clopidogrel [Plavix] 75 mg PO DAILY 05/09/17 [History] Sucralfate [Carafate] 1 gm PO 0730,1630 05/09/17 [History] Furosemide [Lasix] 20 mg PO DAILY 03/01/18 [History] Amitriptyline [Elavil] 25 mg PO HS 03/26/18 [History] Ergocalciferol (VITAMIN D2) [Drisdol] 50,000 unit PO MO 03/26/18 [History] Insulin ASPART [NovoLOG] 2 - 12 unit SQ TID 03/26/18 [History] Insulin DETEMIR [Levemir] 12 unit SQ QAM 03/26/18 [History] Tamsulosin [Flomax] 0.4 mg PO DAILY 03/26/18 [History] Zolpidem [Ambien] 5 mg PO HS 03/26/18 [History] Lactobacillus Combination No.8 [Adult Probiotic] 1 cap PO DAILY 05/04/18 [History] Pramipexole Di-HCl [Pramipexole Dihydrochloride] 0.125 mg PO HS 05/04/18 [History] Promethazine [Phenergan] 25 mg PO TID PRN 05/04/18 [History] Psyllium Husk [Daily Fiber] 0.52 gm PO DAILY 05/04/18 [History] SUMAtriptan Succinate [Imitrex] 6 mg SQ BID PRN 05/04/18 [History] Baclofen [Lioresal] 10 mg PO TID PRN 07/31/18 [History] Lisinopril [Zestril] 20 mg PO SUTUTHSA 07/31/18 [History] Mirtazapine [Remeron] 15 mg PO HS 07/31/18 [History] Insulin DETEMIR [Levemir Flextouch] 14 unit SQ QPM 08/06/18 [History] Aspirin Enteric Coated [Aspirin EC] 81 mg PO DAILY 09/04/18 [History] Calcium Carbonate [Calcium] 500 mg PO BID 09/04/18 [History] Folic Acid/Vit Bcomp,C [Renal Vitamin Tablet] 0.8 mg PO DAILY 09/04/18 [History] Metoprolol XL (24 HR) Succ [Toprol Xl] 12.5 mg PO SUTUTHSA 09/04/18 [History] Midodrine [ProAmatine] 5 mg PO MOWEFR 09/04/18 [History] Oxybutynin Chloride [Ditropan Xl] 10 mg PO DAILY 09/04/18 [History] Cefdinir [Omnicef] 300 mg PO BID 5 Days #10 capsule 09/06/18 [Rx] OxyCODONE/APAP 5/325 [Percocet 5/325 MG] 1 tab PO TID PRN 3 Days #9 tablet 09/06/18 [Rx] Cefdinir [Omnicef] 300 mg PO HS capsule 09/07/18 [Rx] Allergies/Adverse Reactions: Allergy/AdvReac Type Severity Reaction Status Date / Time adhesive tape Allergy Redness of Verified 07/15/18 11:57 Skin latex Allergy Swelling Verified 07/15/18 11:57 of Lip/Tongue/Throat Sulfa (Sulfonamide Allergy Rash Verified 07/15/18 11:57 Antibiotics) - Respiratory Orders Smoking Cessation: Smoking cessation has been advised. For more information, call the [place] Tobacco Quit Line at 4-233-DJKA-NOW. CERTIFICATION: I certify that the transfer of the above named patient to an Extended Care Facility is necessary for the continuing treatment of the diagnosis listed. The above information is true and accurate reflection of patient's current condition. Confidential - Redisclosure prohibited without a patient's written consent.
[2018-09-07] MEDS ORDERED: Cefdinir 300 MG CAPSULE PO SCH (21:00)
== END 2018-09-07 16:37 | DRG 659 ==
LOC: EMEROOARM 09:08 → 2NENU 09:08 → SUATTDRO 13:10 → 2NENU 16:43 → SUATTDRO 09-04 17:14
PROVIDERS: ADMIT Internal Medicine; ATTEND Hospitalist

== ENCOUNTER 2018-09-28 22:29 | Inpatient (IN) ==
[2018-09-28 23:17] LABS: VBG HCO3 23 mEq/L (21-27); VBG PCO2 32 mmHg (41-51); VBG PH 7.46 pH Units (7.32-7.42); VBG PO2 152 mmHg (25-50)
[2018-09-28 23:29] LABS: BUN/Creatinine Ratio 16 (6-26); Blood Urea Nitrogen 58 mg/dL (8-23); Carbon Dioxide 22 mEq/L (23-29); Chloride 101 mEq/L (98-107); Glucose 409 mg/dL (70-105); Osmolality,Calculated 317 (280-300); Sodium 137 mEq/L (136-145); eGFR For Non-African Americans 12 (> 60)
[2018-09-28] MEDS ORDERED: Insulin Regular, Human 100 UNIT/ML SQ ONE (23:37)
--- NOTE | 2018-09-28 23:44 | Emergency Department Note ---
Disposition Clinical Impression: Hyperglycemia, UTI (urinary tract infection) Disposition: Admitted As Inpatient Condition: Good Instructions: Diabetic Hyperglycemia (ED) Reasons to Return/Additional Instructions: Please return to the emergency department if your symptoms do not get better, get worse or you cannot follow-up with your primary care physician. Please use your prescriptions as written. Referrals: Jozef Sahu MD [Primary Care Provider] - Forms: ED Satisfaction Letter Time of Disposition: 23:50 General Adult HPI - General Chief complaint: ED Altered Mental Status Stated complaint: hyperglycemia Time Seen by Provider: 09/28/18 22:30 Source: EMS Mode of arrival: EMS Limitations: no limitations Nursing Notes Reviewed: Yes Vital Signs Reviewed: Yes - History of Present Illness HPI Narrative: 67-year-old female with significant past medical history of end-stage renal disease with dialysis and insulin-dependent diabetes presenting to the emergency department with chief complaint of hyperglycemia. Patient states she forgot to take her insulin this afternoon and this evening. She was at a prison facility. They checked her glucose and it was elevated at approximately 400 and sent her here for further evaluation. Patient received 17 units of insulin at the prison facility. On arrival patient is alert. She denies any concerns or complaints. Denies any chest pain or shortness of breath. Denies any recent fevers or illnesses. Pain Scale: 0 - Related Data Home Medications Medication Instructions Recorded Confirmed Folic Acid 1 mg PO DAILY 07/10/15 09/28/18 Levothyroxine [Synthroid] 50 mcg PO 0630 07/10/15 09/28/18 Pantoprazole Sodium [Protonix] 40 mg PO BID 07/10/15 09/28/18 Docusate [Colace] 100 mg PO BID 10/14/16 09/28/18 Albuterol Sulfate [Proair Hfa] 2 puff IH Q4H PRN 03/17/17 09/28/18 Atorvastatin [Lipitor] 40 mg PO HS 03/17/17 09/28/18 Clopidogrel [Plavix] 75 mg PO DAILY 05/09/17 09/28/18 Sucralfate [Carafate] 1 gm PO 0730,1630 05/09/17 09/28/18 Furosemide [Lasix] 20 mg PO DAILY 03/01/18 09/28/18 Amitriptyline [Elavil] 25 mg PO HS 03/26/18 09/28/18 Ergocalciferol (VITAMIN D2) 50,000 unit PO MO 03/26/18 09/28/18 [Drisdol] Insulin ASPART [NovoLOG] 2 - 12 unit SQ TID 03/26/18 09/28/18 Insulin DETEMIR [Levemir] 12 unit SQ QAM 03/26/18 09/28/18 Tamsulosin [Flomax] 0.4 mg PO DAILY 03/26/18 09/28/18 Zolpidem [Ambien] 5 mg PO HS 03/26/18 09/28/18 Lactobacillus Combination No.8 1 cap PO DAILY 05/04/18 09/28/18 [Adult Probiotic] Pramipexole Di-HCl [Pramipexole 0.125 mg PO HS 05/04/18 09/28/18 Dihydrochloride] Promethazine [Phenergan] 25 mg PO TID PRN 05/04/18 09/28/18 Psyllium Husk [Daily Fiber] 0.52 gm PO DAILY 05/04/18 09/28/18 SUMAtriptan Succinate [Imitrex] 6 mg SQ BID PRN 05/04/18 09/28/18 Baclofen [Lioresal] 10 mg PO TID PRN 07/31/18 09/28/18 Lisinopril [Zestril] 20 mg PO SUTUTHSA 07/31/18 09/28/18 Mirtazapine [Remeron] 15 mg PO HS 07/31/18 09/28/18 Insulin DETEMIR [Levemir Flextouch] 14 unit SQ QPM 08/06/18 09/28/18 Aspirin Enteric Coated [Aspirin EC] 81 mg PO DAILY 09/04/18 09/28/18 Calcium Carbonate [Calcium] 500 mg PO BID 09/04/18 09/28/18 Folic Acid/Vit Bcomp,C [Renal 0.8 mg PO DAILY 09/04/18 09/28/18 Vitamin Tablet] Metoprolol XL (24 HR) Succ [Toprol 12.5 mg PO SUTUTHSA 09/04/18 09/28/18 Xl] Midodrine [ProAmatine] 5 mg PO MOWEFR 09/04/18 09/28/18 Oxybutynin Chloride [Ditropan Xl] 10 mg PO DAILY 09/04/18 09/28/18 Previous Rx's Medication Instructions Recorded OxyCODONE/APAP 5/325 [Percocet 1 tab PO TID PRN 3 Days #9 tablet 09/06/18 5/325 MG] Cefdinir [Omnicef] 300 mg PO HS capsule 09/07/18 Allergies Allergy/AdvReac Type Severity Reaction Status Date / Time adhesive tape Allergy Redness of Verified 09/28/18 15:57 Skin latex Allergy Swelling Verified 09/28/18 15:57 of Lip/Tongue/Throat Sulfa (Sulfonamide Allergy Rash Verified 09/28/18 15:57 Antibiotics) All systems ED: reviewed and negative except as stated. Constitutional: Denies: fever, chills, weakness Eyes: Reports: as per HPI ENT ED: Reports: as per HPI Cardiovascular: Denies: chest pain, palpitations, dyspnea on exertion Respiratory: Denies: cough, dyspnea, wheezes Gastrointestinal: Denies: abdominal pain, nausea, vomiting Genitourinary: Reports: as per HPI Musculoskeletal: Reports: as per HPI Integumentary: Reports: as per HPI Neurological: Denies: weakness, numbness, paresthesias Psychiatric: Reports: as per HPI Endocrine: Reports: as per HPI Hematological/Lymphatic: Reports: as per HPI Allergic/Immunologic: Reports: as per HPI Past Medical History - Past Medical History Attestation: Yes The following information was validated with the patient. Medical history: Reports: arthritis, cancer, coronary artery disease, diabetes, dialysis, GERD, hyperlipidemia, hypertension, myocardial infarction, renal disease, other Surgical history: Reports: appendectomy, cholecystectomy, coronary bypass (CABG), hysterectomy, ureteral stent, other Psychiatric history: Reports: anxiety, depression BETTING CLERKS history: Reports: no BETTING CLERKS history - Social History Smoking Status: Never smoker Smokeless Tobacco Status: No Alcohol use: Reports: none Drug use: Reports: none Physical Exam - General Limitations: no limitations General appearance: alert, in no apparent distress - Head Head exam: atraumatic, normocephalic, normal inspection - Eye Eye exam: Present: normal appearance. Absent: scleral icterus, conjunctival injection - ENT ENT exam: normal exam, mucous membranes moist - Neck Neck exam: Present: normal inspection, full ROM. Absent: tenderness, meningismus - Chest Chest inspection: Present: normal inspection, symmetric chest wall rise. Absent: tenderness, rash - Respiratory Respiratory exam: Present: normal lung sounds bilaterally. Absent: respiratory distress, wheezes - Cardiovascular Cardiovascular exam: Present: regular rate, normal rhythm, normal heart sounds - Abdominal Exam Abdominal exam: Present: soft, Non-Tender. Absent: distention, guarding, rebound - Extremities Exam Extremities exam: Present: full ROM - Neurological Exam Neurological exam: Present: alert - Psychiatric Psychiatric exam: Present: normal affect, normal mood - Skin Skin exam: Present: warm, intact Course Course Narrative: 67-year-old female presenting for hyperglycemia. Patient forgot to take her insulin this afternoon. Patient denies any recent illnesses or fever. In the room she is alert and hemodynamically stable. Point of care glucose 441. We will obtain basic laboratory analysis including BMP, VBG and beta hydroxybutyrate acid to rule out DKA. As long as all of these are within normal limits we will provide the patient with 10 units of IV insulin and transfer her back to her prison facility. Patient agrees with this plan. Disposition pending results. - Reevaluation(s) Reevaluation #1: Patient's labs show no gap, no acidemia and negative ketones. We will provide the patient with 10 units of insulin and discharge her back to prison facility. Patient remains alert and hemodynamically stable. Reevaluation #2: Family member arrived prior to discharge and reported that she is more confused than her baseline. She does answer questions when asked however son states that she is not truthful with her answers. We had not received word from the nursing care facility or EMS that she was confused prior to this time. Vital Signs Temperature 98.0 F 09/28/18 22:33 Pulse Rate 89 09/28/18 22:33 Respiratory Rate 20 09/28/18 22:33 Blood Pressure 166/62 09/28/18 22:33 O2 Sat by Pulse Oximetry 99 09/28/18 22:33 Temperature 98.0 F 09/28/18 22:33 Pulse Rate 81 09/29/18 00:17 Respiratory Rate 18 09/29/18 00:17 Blood Pressure 163/65 09/29/18 00:17 O2 Sat by Pulse Oximetry 95 09/29/18 00:17 Oxygen Delivery Oxygen Delivery Room Air Medical Decision Making - Medical Records Medical records reviewed: Yes I reviewed the patient's medical records. - Lab Data Lab results reviewed: Yes I reviewed the patient's lab results. Result diagrams: 09/28/18 23:01 Lab Results 09/28/18 09/28/18 09/28/18 Range/Units 23:01 23:01 23:15 VBG pH 7.46 H (7.32-7.42) pH Units VBG pCO2 32 L (41-51) mmHg VBG pO2 152 H (25-50) mmHg VBG HCO3 23 (21-27) mEq/L Sodium 137 (136-145) mEq/L Potassium 3.0 L (3.5-5.1) mEq/L Chloride 101 (98-107) mEq/L Carbon Dioxide 22 L (23-29) mEq/L BUN 58 H (8-23) mg/dL Creatinine 3.70 H (0.60-1.20) mg/dL Est GFR ( Amer) 15 L (> 60) Est GFR (Non-Af Amer) 12 L (> 60) BUN/Creatinine Ratio 16 (6-26) Glucose 409 H (70-105) mg/dL Calculated Osmolality 317 H (280-300) Calcium 9.0 (8.6-10.3) mg/dL Beta-Hydroxybutyric Acd 0.18 (0.02-0.27) mmol/L Urine Color (Yellow) Urine Clarity (Clear) Urine pH (5.0-8.0) pH Units Ur Specific [place] (1.010-1.025) Urine Protein (Neg-Trace) mg/dL Urine Glucose (UA) (Normal) mg/dL Urine Ketones (Negative) mg/dL Urine Blood (Negative) Urine Nitrite (Negative) Urine Bilirubin (Negative) Urine Urobilinogen (Normal) mg/dL Ur Leukocyte Esterase (Negative) Urine Microscopic WBC (0-3) per hpf Ur Squamous Epith Cells (None-Few) per lpf Urine Bacteria (None-Few) per hpf Hyaline Casts (None-Few) per lpf Urine Yeast (None Seen) per hpf Ur Culture Indicated? (NO) 09/29/18 Range/Units 01:22 VBG pH (7.32-7.42) pH Units VBG pCO2 (41-51) mmHg VBG pO2 (25-50) mmHg VBG HCO3 (21-27) mEq/L Sodium (136-145) mEq/L Potassium (3.5-5.1) mEq/L Chloride (98-107) mEq/L Carbon Dioxide (23-29) mEq/L BUN (8-23) mg/dL Creatinine (0.60-1.20) mg/dL Est GFR ( Amer) (> 60) Est GFR (Non-Af Amer) (> 60) BUN/Creatinine Ratio (6-26) Glucose (70-105) mg/dL Calculated Osmolality (280-300) Calcium (8.6-10.3) mg/dL Beta-Hydroxybutyric Acd (0.02-0.27) mmol/L Urine Color Yellow (Yellow) Urine Clarity Turbid A (Clear) Urine pH 6.0 (5.0-8.0) pH Units Ur Specific [place] 1.018 (1.010-1.025) Urine Protein >=300 H (Neg-Trace) mg/dL Urine Glucose (UA) 250 H (Normal) mg/dL Urine Ketones Negative (Negative) mg/dL Urine Blood Large H (Negative) Urine Nitrite Negative (Negative) Urine Bilirubin Negative (Negative) Urine Urobilinogen Normal (Normal) mg/dL Ur Leukocyte Esterase Large H (Negative) Urine Microscopic WBC TNTC H (0-3) per hpf Ur Squamous Epith Cells Moderate H (None-Few) per lpf Urine Bacteria None Seen (None-Few) per hpf Hyaline Casts None Seen (None-Few) per lpf Urine Yeast Many H (None Seen) per hpf Ur Culture Indicated? YES A (NO) Attestation Statement - Attestation Attestation: I, Dale Kelly, examined this patient and my medical decision-making was reviewed with the PARADI OPERATOR/PA/Advanced Practice Nurse/Resident Physician. I agree with the documented findings, disposition and treatment plan as described except to the extent set forth below. 67-year-old female presents emergency Department with concerns of hyperglycemia. Patient states she has been at her dentist today and the oncologist, recently found out that she had breast cancer. She did not take her insulin today. Her sugar was checked at the prison facility found that it was significantly elevated. Patient has generalized malaise but denies chest pain, shortness breath, fever. Patient does not have an anion gap.. She was given insulin emergency department. She feels comfortable with plan to return to the prison facility for further care and evaluation. She was counseled to take her medications regularly. Prior to discharge, a family member arrived and stated that she is altered more than her baseline. He states that this often occurs when she has a urinary tract infection. We obtained a urine sample which shows urinary tract infection. Patient will be admitted for antibiotics as she would be unable to take these medications correctly at home in her assisted living facility.
[2018-09-29 01:31] LABS: Bilirubin,Urine Negative (Negative); Blood,Urine Large (Negative); Clarity,Urine Turbid (Clear); Color,Urine Yellow (Yellow); Glucose,Urine (UA) 250 mg/dL (Normal); Ketones,Urine Negative (Negative); Leukocyte Esterase,Urine Large (Negative); Nitrite,Urine Negative (Negative); Protein,Urine >=300 mg/dL (Neg-Trace); Specific Gravity,Urine 1.018 (1.010-1.025); Urobilinogen,Urine Normal (Normal)
[2018-09-29 01:47] LABS: Hyaline Casts,Urine None Seen per lpf (None-Few); Squamous Epithelial Cell,Urine Moderate per lpf (None-Few); WBC,Urine TNTC per hpf (0-3)
[2018-09-29 01:50] LABS: Bacteria,Urine None Seen per hpf (None-Few); Yeast,Urine Many per hpf (None Seen)
[2018-09-29] MEDS ORDERED: cefTRIAXone 1,000 MG in Water for inj. (sterile) 20 ML 20 ML IVPB ONE (02:02)
[2018-09-29 02:06] LABS: Troponin I < 0.03 ng/mL (< 0.04)
[2018-09-29] MEDS ORDERED: Naloxone 0.4 MG/ML INJ IVP PRN (04:03)
--- NOTE | 2018-09-29 04:32 | Internal Med History&Physical ---
Date of Encounter: 09/29/18 Time of Encounter: 03:00 Internal Medicine - H&P: HPI Chief complaint: Hyperglycemia Admitted From: Home Plans for Post Hospital Care: Home History of present illness: Ms. Dan is a 67 year old female with past medical history significant for ESRD on dialysis, CAD with CABG, diabetes, hyperlipidemia, hypertension, thyroid disease, lung cancer in remission, anxiety, and depression who presents from [facility] for hyperglycemia with blood sugar in 400's after reportedly missing evening insulin. Was treated in ER with insulin and was preparing to be discharged until son who is POA arrived and stated patient is confused and not at her baseline mentation and is acting how she typically does with a UTI. A UA was then obtained which revealed a suspected UTI with large leukocyte esterase. Patient son was present during my exam and most history was obtained from him as the patient is exhibiting intermittent confusion and disorientation though she is following commands. Patient denies chest pain, shortness of breath, abdominal pain, bowel, or bladder changes. Does persistently complain of back pain and son reports this is chronic problem for her. Son reports patient is typically alert and oriented x3, however was called last night by [facility] staff reporting patient was exhibiting confusion and had not taken her evening insulin and was sent to ER for hyperglycemia. [facility] and transport staff did not originally report to ER staff that patient was exhibiting confusion prior to arrival. Son reports patient has had multiple recent hospital visits for confusion and UTI's, also reports patient has had 2 urinary stents placed previously and is supposed to be self cathing 3 times per day but doesn't think she has been doing it. Patient receives dialysis Mondays, Wednesdays, and Fridays. Son reports patients blood pressures and blood sugars are monitored by [facility] and have been averaging normal as far as he is aware. Past Med Surg Social Fam HX - Past Medical History Medical history: arthritis, cancer, coronary artery disease, diabetes, dialysis, GERD, hyperlipidemia, hypertension, myocardial infarction, renal disease, other Additional medical history: neuropathy, insomnia Psychiatric history: anxiety, depression - Past Surgical History Surgical History: appendectomy, cholecystectomy, coronary bypass (CABG), hysterectomy, ureteral stent, other Additional surgical history: colonoscopy - egd - tubal ligation - kidney stent - Social History Smoking Status: Never smoker Smokeless Tobacco Status: No Alcohol use: none Drug use: none - Family History Mother Living Status: Hx Family Endocrine Disorder: (DM) Father Adopted: No Hx Family Cardiac Disorders: Yes ("heart troubles") Hx Family Cancer: Yes (Prostate cancer) Hx Family Endocrine Disorder: Yes (DM) Brother Hx Family Cardiac Disorders: Yes (CAD) Hx Family Cancer: Yes (lung cancer) Internal Medicine - H&P: Meds Folic Acid 1 mg PO DAILY 07/10/15 [History] Levothyroxine [Synthroid] 50 mcg PO 0630 07/10/15 [History] Pantoprazole Sodium [Protonix] 40 mg PO BID 07/10/15 [History] Docusate [Colace] 100 mg PO BID 10/14/16 [History] Albuterol Sulfate [Proair Hfa] 2 puff IH Q4H PRN 03/17/17 [History] Atorvastatin [Lipitor] 40 mg PO HS 03/17/17 [History] Clopidogrel [Plavix] 75 mg PO DAILY 05/09/17 [History] Sucralfate [Carafate] 1 gm PO 0730,1630 05/09/17 [History] Furosemide [Lasix] 20 mg PO DAILY 03/01/18 [History] Amitriptyline [Elavil] 25 mg PO HS 03/26/18 [History] Ergocalciferol (VITAMIN D2) [Drisdol] 50,000 unit PO MO 03/26/18 [History] Insulin ASPART [NovoLOG] 2 - 12 unit SQ TID 03/26/18 [History] Insulin DETEMIR [Levemir] 12 unit SQ QAM 03/26/18 [History] Tamsulosin [Flomax] 0.4 mg PO DAILY 03/26/18 [History] Zolpidem [Ambien] 5 mg PO HS 03/26/18 [History] Lactobacillus Combination No.8 [Adult Probiotic] 1 cap PO DAILY 05/04/18 [History] Pramipexole Di-HCl [Pramipexole Dihydrochloride] 0.125 mg PO HS 05/04/18 [History] Promethazine [Phenergan] 25 mg PO TID PRN 05/04/18 [History] Psyllium Husk [Daily Fiber] 0.52 gm PO DAILY 05/04/18 [History] SUMAtriptan Succinate [Imitrex] 6 mg SQ BID PRN 05/04/18 [History] Baclofen [Lioresal] 10 mg PO TID PRN 07/31/18 [History] Lisinopril [Zestril] 20 mg PO SUTUTHSA 07/31/18 [History] Mirtazapine [Remeron] 15 mg PO HS 07/31/18 [History] Insulin DETEMIR [Levemir Flextouch] 14 unit SQ QPM 08/06/18 [History] Aspirin Enteric Coated [Aspirin EC] 81 mg PO DAILY 09/04/18 [History] Calcium Carbonate [Calcium] 500 mg PO BID 09/04/18 [History] Folic Acid/Vit Bcomp,C [Renal Vitamin Tablet] 0.8 mg PO DAILY 09/04/18 [History] Metoprolol XL (24 HR) Succ [Toprol Xl] 12.5 mg PO SUTUTHSA 09/04/18 [History] Midodrine [ProAmatine] 5 mg PO MOWEFR 09/04/18 [History] Oxybutynin Chloride [Ditropan Xl] 10 mg PO DAILY 09/04/18 [History] OxyCODONE/APAP 5/325 [Percocet 5/325 MG] 1 tab PO TID PRN 3 Days #9 tablet 09/06/18 [Rx] Cefdinir [Omnicef] 300 mg PO HS capsule 09/07/18 [Rx] Allergy/AdvReac Type Severity Reaction Status Date / Time adhesive tape Allergy Redness of Verified 09/28/18 15:57 Skin latex Allergy Swelling Verified 09/28/18 15:57 of Lip/Tongue/Throat Sulfa (Sulfonamide Allergy Rash Verified 09/28/18 15:57 Antibiotics) All Systems PM: A 10-system review of systems was performed and is negative for pertinent findings except as documented above in the HPI. - Constitutional Vitals: Temp Pulse Resp BP Pulse Ox 98.0 F 81 18 163/65 95 09/28/18 22:33 09/29/18 00:17 09/29/18 00:17 09/29/18 00:17 09/29/18 00:17 Exam: General: Drowsy but easily arousable, oriented to person and place. Skin:Normal color, no rash, no lesions. HEENT:Pupils equal and round. Cardiovascular:Normal S1 & S2, no rubs, murmurs or gallops. No JVD. Pulse regular. Lungs:Normal breath sounds, no wheezes or crackles. Abdomen:Soft, non-tender, no rigidity. Extremities:No deformity, no edema or tenderness, no joint swelling or clubbing. Right arm dialysis fistula noted with bruit present. Neurological:Disoriented. Normal motor skills. No other neurological deficits noted besides mentation. GCS 14. Pulses:Carotid and radial pulses normal +2. Rest of the physical exam is non contributory. Internal Med - H&P Results - Labs CBC & Chem 7: 09/28/18 23:01 Labs: BMP 09/28/18 23:01 Sodium 137 Potassium 3.0 L Chloride 101 Carbon Dioxide 22 L BUN 58 H Creatinine 3.70 H Glucose 409 H Calcium 9.0 Cardiac Enzymes 09/28/18 Range/Units 23:01 Troponin I < 0.03 (< 0.04) ng/mL Urine 09/29/18 Range/Units 01:22 Urine Color Yellow (Yellow) Urine Clarity Turbid A (Clear) Urine pH 6.0 (5.0-8.0) pH Units Ur Specific [place] 1.018 (1.010-1.025) Urine Protein >=300 H (Neg-Trace) mg/dL Urine Glucose (UA) 250 H (Normal) mg/dL - ABG Interpretation ABG results: 09/28/18 23:15 VBG pH 7.46 H VBG pCO2 32 L VBG pO2 152 H VBG HCO3 23 - Impressions ITS Impressions Chest X-Ray 09/29/18 01:14 IMPRESSION: Mild diffuse interstitial prominence suggesting pulmonary edema. Possible trace effusions. No focal airspace consolidation. D/ / Chelle Kaur MD / Chelle Kaur MD Interpreting Provider: Chelle Kaur MD - Assessment and plan (1) Altered mental status Current Visit: Yes Status: Acute Assessment and plan: Likely secondary to UTI. Stat Head CT and EKG ordered. Nursing bedside swallow eval prior to any PO intake. Qualifiers: Altered mental status type: unspecified Qualified Code(s): R41.82 - Altered mental status, unspecified (2) UTI (urinary tract infection) Current Visit: Yes Status: Acute Assessment and plan: Ceftriaxone started in ER, will continue same. Culture pending. Repeat labs tomorrow a.m. Qualifiers: Urinary tract infection type: site unspecified Hematuria presence: with hematuria Qualified Code(s): N39.0 - Urinary tract infection, site not specified; R31.9 - Hematuria, unspecified (3) Hyperglycemia Current Visit: Yes Status: Acute Assessment and plan: Resolving after 10 units Humulin received in ER. See diabetes plan. (4) Diabetes mellitus Current Visit: Yes Status: Chronic Assessment and plan: Accucheck ACHS. Diabetic/Cardiac/Renal diet. Hold home medications. Low dose sliding scale insulin. Qualifiers: Diabetes mellitus type: type 2 Diabetes mellitus terminal carman insulin use: with terminal carman use Diabetes mellitus complication status: with unspecified complications Qualified Code(s): E11.8 - Type 2 diabetes mellitus with unspecified complications; Z79.4 - terminal carman (current) use of insulin (5) End stage chronic kidney disease Current Visit: Yes Status: Chronic Assessment and plan: Nephrology consult ordered. Will need called in a.m. Receives dialysis M, W, F, will need while in hospital. - Time Spent With Patient Total time spent is greater than 50% in coordination of care (as documented) at patient's floor/unit and/or counseling patient:
[2018-09-29] MEDS ORDERED: *HR* Dextrose 50 % in Water (Syg) 50 ML SYRINGE IVP PRN (04:58)
[2018-09-29] MEDS ORDERED: D5% in Water 1,000 ML IVC PRN (04:58)
[2018-09-29] MEDS ORDERED: Dextrose Gel 15 GM/37.5 ML TUBE PO PRN ×2 (04:58)
[2018-09-29 05:23] LABS: Hematocrit 33.4 % (35.3-44.9); Hemoglobin 11.1 g/dL (11.5-15.4); Mean Corpuscular HGB Conc 33.2 g/dL (31.6-35.5); Mean Corpuscular Hemoglobin 31.4 pg (28.0-33.3); Mean Corpuscular Volume 94.6 fL (83.0-100.0); Mean Platelet Volume 10.9 fL (9.4-12.4); Nucleated Red Blood Cells 0.2 /100 WBC (0); Platelet Count 213 K/mcL (140-400); Red Blood Count 3.53 M/mcL (3.82-4.97); Red Cell Distribution Width 14.3 % (11.5-14.5)
[2018-09-29 06:10] LABS: Lymphocytes # 1.7 K/mcL (0.6-4.6); Monocytes # 0.4 K/mcL (0.0-1.3); Neutrophils # 8.4 K/mcL (1.6-8.9); Platelet Estimate Normal (Normal)
[2018-09-29] MEDS ORDERED: 0.9 % Sodium Chloride 250 ML IVC PRN (07:42)
[2018-09-29] MEDS ORDERED: 0.9 % Sodium Chloride 1,000 ML PRIME SCH (07:45)
[2018-09-29] MEDS ORDERED: Albuterol 2.5 MG/3 ML NEBULIZER IH PRN (07:51)
[2018-09-29] MEDS ORDERED: 0.9 % Sodium Chloride 1,000 ML ONE (07:58)
[2018-09-29 08:03] LABS: Calcium 8.8 mg/dL (8.6-10.3); Potassium 3.5 mEq/L (3.5-5.1)
[2018-09-29] MEDS: Insulin LISPRO 300 UNITS/3 ML VIAL SQ SCH ×4 (08:31→21:35)
[2018-09-29] MEDS: *HR* Heparin 5,000 UNIT/ML VIAL SQ SCH ×2 (08:55→17:34)
[2018-09-29] MEDS: cefTRIAXone 1,000 MG in Water for inj. (sterile) 20 ML 10 ML IVP SCH (08:55)
[2018-09-29] MEDS: Aspirin Enteric Coated 81 MG Tablet PO SCH (08:56)
[2018-09-29] MEDS: Insulin DETEMIR 100 UNIT/ML X5UNITS SQ SCH ×2 (08:56→21:35)
[2018-09-29] MEDS: Metoprolol XL (24 HR) Succ 25 MG TAB.ER.24H PO SCH (08:57)
[2018-09-29] MEDS ORDERED: *HR* LORazepam 2 MG/ML VIAL IVP ONE (10:20)
[2018-09-29 11:15] LABS: Albumin 3.1 g/dL (3.5-5.7); Albumin/Globulin Ratio 0.9 (1.1-2.2); Bilirubin,Direct 0.1 mg/dL (0.0-0.2); Bilirubin,Indirect 0.2 mg/dL (0.0-1.2); Bilirubin,Total 0.3 mg/dL (0.3-1.0); Globulin 3.3 g/dL (2.4-3.5); Total Protein 6.4 g/dL (6.4-8.9)
--- NOTE | 2018-09-29 14:27 | Internal Med Progress Note ---
Hospitalist Progress Note - Encounter Date of Encounter: 09/29/18 Time of Encounter: 14:25 - Subjective Interval History: I have seen and evaluated the patient at bedside. this patient was seen by me during her las hospitalization for similar presentation at that time she was treated for a UTI and b/l stents were placed due to hydronephrosis. patient is awake, oriented only to person. complaining of back pain, denies abdominal pain, nausea or vomiting. - Exam Vitals: Temp Pulse Resp BP Pulse Ox 97.6 F 84 18 138/71 93 09/29/18 14:14 09/29/18 08:02 09/29/18 14:14 09/29/18 14:14 09/29/18 08:02 Exam: Vitals: Reviewed. General: Awake, oriented only to person. In mild distress due to back pain HEENT: Dry oral mucosa. EOM, pupils equal, round and reactive. Cardiovascular: RRR, Normal S1 & S2, no rubs, murmurs or gallops. No JVD. Pulse regular. Lungs: Clear to auscultation bilaterally, no wheezes or crackles. Abdomen: Soft, non-tender, no rigidity. Extremities: No deformity, no edema or tenderness, no joint swelling or clubbing. Neurological: encephalopathy Rest of the physical exam is non contributory - Assessment and Plan (1) UTI (urinary tract infection) Current Visit: Yes Status: Acute Assessment and Plan: empirically being covered with ceftrixone 1gm/IV daily pending urine culture report. (2) Altered mental status Current Visit: Yes Status: Acute Assessment and Plan: Metabolic, most likely due to UTI. patient had a similar presentation less than a month ago. in that occasion change in mental status was due to UTI. If not improvement in mental status will consider Neurology consult. Head CT: No acute abnormalities. (3) Diabetes mellitus Current Visit: Yes Status: Chronic Assessment and Plan: Patient on Insulin coverage with Levemir 15 units subQ BID and Lispro low dose sliding scale (4) End stage chronic kidney disease Current Visit: Yes Status: Chronic Assessment and Plan: Renal replacement therapy per nephrology recommendations. (5) CAD (coronary artery disease) Current Visit: No Status: Chronic Assessment and Plan: started on home dose of clopidogrel 75mg/PO daily. 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 - Summary of Assessment and Plan Summary of Assessment and Plan: Patient to remain in the hospital due to metabolic encephalopathy. - Time Spent with Patient Total time spent is greater than 50% in coordination of care (as documented) at patient's floor/unit and/or counseling patient: Greater than 35 minutes (40) Plan of Care Discussed with: patient (and the nurse.) Internal Medicine: Result - Labs CBC & Chem 7: 09/29/18 04:52 09/29/18 07:42 Labs: Short CBC 09/29/18 Range/Units 04:52 WBC 10.5 (4.3-11.1) K/mcL Hgb 11.1 L (11.5-15.4) g/dL Hct 33.4 L (35.3-44.9) % Plt Count 213 (140-400) K/mcL Neutrophils # 8.4 (1.6-8.9) K/mcL BMP 09/28/18 09/29/18 23:01 07:42 Sodium 137 142 Potassium 3.0 L 3.5 Chloride 101 107 Carbon Dioxide 22 L 25 BUN 58 H 62 H Creatinine 3.70 H 3.80 H Glucose 409 H 85 Calcium 9.0 8.8 Cardiac Enzymes 09/28/18 Range/Units 23:01 Troponin I < 0.03 (< 0.04) ng/mL Liver Function 09/29/18 Range/Units 10:28 Total Bilirubin 0.3 (0.3-1.0) mg/dL Direct Bilirubin 0.1 (0.0-0.2) mg/dL AST 15 (13-39) Units/L ALT 13 (7-52) Units/L Alkaline Phosphatase 168 H (34-104) Units/L Albumin 3.1 L (3.5-5.7) g/dL Urine 09/29/18 Range/Units 01:22 Urine Color Yellow (Yellow) Urine Clarity Turbid A (Clear) Urine pH 6.0 (5.0-8.0) pH Units Ur Specific [place] 1.018 (1.010-1.025) Urine Protein >=300 H (Neg-Trace) mg/dL Urine Glucose (UA) 250 H (Normal) mg/dL - Impressions Impressions Chest X-Ray 09/29/18 01:14 IMPRESSION: Mild diffuse interstitial prominence suggesting pulmonary edema. Possible trace effusions. No focal airspace consolidation. D/ / Chelle Kaur MD / Chelle Kaur MD Interpreting Provider: Chelle Kaur MD Head CT 09/29/18 03:59 IMPRESSION: No acute intracranial abnormality. D/ / Chelle Kaur MD / Chelle Kaur MD Interpreting Provider: Chelle Kaur MD Consult Discharge Plan - Plan Referrals: Bartolo Washburn MD [Partnered Physician] - 10/09/18 9:45 am (Please follow up as schedule...) __ (1) UTI (urinary tract infection) Qualifiers: Urinary tract infection type: site unspecified Hematuria presence: with hematuria Qualified Code(s): N39.0 - Urinary tract infection, site not specified; R31.9 - Hematuria, unspecified (2) Altered mental status Qualifiers: Altered mental status type: unspecified Qualified Code(s): R41.82 - Altered mental status, unspecified (3) Diabetes mellitus Qualifiers: Diabetes mellitus type: type 2 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 transplanted heart: unspecified whether [place] or transplanted heart Associated angina: angina presence unspecified Qualified Code(s): I25.10 - Atherosclerotic heart disease of [place] coronary artery without angina pectoris (6) Hypothyroidism Qualifiers: Hypothyroidism type: unspecified Qualified Code(s): E03.9 - Hypothyroidism, unspecified (7) Lung cancer Qualifiers: Laterality: right Lung location: unspecified part of lung Qualified Code(s): C34.91 - Malignant neoplasm of unspecified part of right bronchus or lung
--- NOTE | 2018-09-29 14:40 | Nephrology Consult Note ---
<YukoGarcia - Last Filed: 09/29/18 15:29> Date of Encounter: 09/29/18 Time of Encounter: 09:10 Assessment and Plan (1) End stage chronic kidney disease Current Visit: Yes Status: Chronic - Normally MWF HD via fistula at [facility] HD, from SNF - Unlikely source of encephalopathy as her labs are at baseline and she has been complaint - GFR 12. BUN/ Cr of 35/3.80. K of 3.5 - Continue with normally scheduled MWF HD. In HD today - Avoid nephrotoxins and renally dose medications - Renal vitamins. - Additional HD as needed. (2) Acute metabolic encephalopathy Current Visit: Yes Status: Acute - Likely secondary to UTI and less likely related to ESRD - Similar presentation 1 month ago due to UTI at that time. - Further management of underlying illness per primary team (3) UTI (urinary tract infection) Current Visit: Yes Status: Acute per primary team culture pending. Qualifiers: Urinary tract infection type: site unspecified Hematuria presence: with hematuria Qualified Code(s): N39.0 - Urinary tract infection, site not specified; R31.9 - Hematuria, unspecified (4) Diabetes mellitus Current Visit: Yes Status: Chronic uncontrolled. 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 - Transfusion parameters per primary team Qualifiers: Anemia type: unspecified type Qualified Code(s): D64.9 - Anemia, unspecified History of Present Illness - Reason for Consult Consult date: 09/29/18 end stage renal disease - Chief Complaint Altered mental status - History of Present Illness Mrs. Dan presents emergency department on 09/28/18 from senior living facility due to concerns of altered mental status and hyperglycemia. Nephrology was consult that on 09/29/18 for management of ESRD on dialysis. She has past medical history of arthritis, CAD, diabetes, GERD, hyperlipidemia, hypertension, ESRD on MWF HD. On presentation to the emergency room, vitals were significant for respiratory rate of 20, blood pressure 166/62. Laboratory results showed no leukocytosis, respiratory alkalosis with pH on VBG of 7.46, CO2 of 32, bicarbonate of 22. BUNs/creatinine at 58/3.70. Glucose was also elevated at 416. Troponin was negative and beta hydroxybutyric acid was 0.18 within normal limits. Urinalysis was obtained and showed large amount of protein, large blood, large leukocyte esterase, too numerous to count white blood cells with moderate epithelial cells. Specific gravity was within normal limits. Chest x-ray was obtained and showed mild diffuse interstitial prominence suggesting pulmonary edema. CT of the head was unremarkable for acute changes. She was admitted to the hospital and is being treated for urinary tract infection. Upon my interview with patient this morning, she has altered and unable to answer questions. Her only phrase that she states is "ow, my pain" but is unable to elaborate further on the location or nature of her pain. She does not answer questions and there is no family present at bedside. Past Med Surg Social Fam HX - Past Medical History Medical history: arthritis, cancer, coronary artery disease, diabetes, dialysis, GERD, hyperlipidemia, hypertension, myocardial infarction, renal disease, other Additional medical history: neuropathy, insomnia Psychiatric history: anxiety, depression - Past Surgical History Surgical History: appendectomy, cholecystectomy, coronary bypass (CABG), hysterectomy, ureteral stent, other Additional surgical history: colonoscopy - egd - tubal ligation - kidney stent - Social History Smoking Status: Never smoker Smokeless Tobacco Status: No Alcohol use: none Drug use: none - Family History Mother Living Status: Hx Family Endocrine Disorder: (DM) Father Adopted: No Hx Family Cardiac Disorders: Yes ("heart troubles") Hx Family Cancer: Yes (Prostate cancer) Hx Family Endocrine Disorder: Yes (DM) Brother Hx Family Cardiac Disorders: Yes (CAD) Hx Family Cancer: Yes (lung cancer) Medications and Allergies Folic Acid 1 mg PO DAILY 07/10/15 [History] Levothyroxine [Synthroid] 50 mcg PO 2000 07/10/15 [History] Pantoprazole Sodium [Protonix] 40 mg PO BID 07/10/15 [History] Docusate [Colace] 100 mg PO BID 10/14/16 [History] Albuterol Sulfate [Proair Hfa] 2 puff IH Q4H PRN 03/17/17 [History] Atorvastatin [Lipitor] 40 mg PO HS 03/17/17 [History] Clopidogrel [Plavix] 75 mg PO DAILY 05/09/17 [History] Sucralfate [Carafate] 1 gm PO 0730,1630 05/09/17 [History] Furosemide [Lasix] 20 mg PO DAILY 03/01/18 [History] Amitriptyline [Elavil] 25 mg PO HS 03/26/18 [History] Ergocalciferol (VITAMIN D2) [Drisdol] 50,000 unit PO MO 03/26/18 [History] Insulin DETEMIR [Levemir] 12 unit SQ 0800 03/26/18 [History] Tamsulosin [Flomax] 0.4 mg PO DAILY 03/26/18 [History] Zolpidem [Ambien] 5 mg PO HS 03/26/18 [History] Lactobacillus Combination No.8 [Adult Probiotic] 1 cap PO DAILY 05/04/18 [History] Pramipexole Di-HCl [Pramipexole Dihydrochloride] 0.125 mg PO HS 05/04/18 [History] Promethazine [Phenergan] 25 mg PO TID PRN 05/04/18 [History] Psyllium Husk [Daily Fiber] 0.52 gm PO DAILY 05/04/18 [History] SUMAtriptan Succinate [Imitrex] 6 mg SQ BID PRN 05/04/18 [History] Baclofen [Lioresal] 10 mg PO TID PRN 07/31/18 [History] Lisinopril [Zestril] 20 mg PO SUTUTHSA 07/31/18 [History] Mirtazapine [Remeron] 15 mg PO HS 07/31/18 [History] Insulin DETEMIR [Levemir Flextouch] 14 unit SQ 2000 08/06/18 [History] Aspirin Enteric Coated [Aspirin EC] 81 mg PO DAILY 09/04/18 [History] Calcium Carbonate [Calcium] 500 mg PO BID 09/04/18 [History] Folic Acid/Vit Bcomp,C [Renal Vitamin Tablet] 0.8 mg PO DAILY 09/04/18 [History] Metoprolol XL (24 HR) Succ [Toprol Xl] 12.5 mg PO SUTUTHSA 09/04/18 [History] Midodrine [ProAmatine] 5 mg PO MOWEFR 09/04/18 [History] Oxybutynin Chloride [Ditropan Xl] 10 mg PO DAILY 09/04/18 [History] OxyCODONE/APAP 5/325 [Percocet 5/325 MG] 1 tab PO TID PRN 3 Days #9 tablet 09/06/18 [Rx] Allergy/AdvReac Type Severity Reaction Status Date / Time adhesive tape Allergy Redness of Verified 09/28/18 15:57 Skin latex Allergy Swelling Verified 09/29/18 09:10 of Lip/Tongue/Throat Sulfa (Sulfonamide Allergy Rash Verified 09/29/18 09:10 Antibiotics) Review of Systems ROS unobtainable: due to mental status Exam - Vital Signs Vital signs: Initial Vital Signs Temp Pulse Resp BP Pulse Ox 98.0 F 89 20 166/62 99 09/28/18 22:33 09/28/18 22:33 09/28/18 22:33 09/28/18 22:33 09/28/18 22:33 Vital Signs - Last 8 Hours Temp Pulse Resp BP Pulse Ox 09/29/18 14:14 97.6 F 18 138/71 09/29/18 13:15 118/68 09/29/18 13:00 100/62 09/29/18 12:45 93/62 09/29/18 12:30 115/59 09/29/18 12:15 103/59 09/29/18 12:00 131/65 09/29/18 11:45 106/61 09/29/18 11:30 104/47 09/29/18 11:15 172/81 09/29/18 11:00 180/80 09/29/18 10:45 130/91 09/29/18 10:30 159/81 09/29/18 10:15 97.7 F 18 197/83 09/29/18 08:02 97.5 F L 84 18 152/64 93 Intake and Output 09/28/18 09/29/18 09/29/18 23:59 07:59 15:59 Intake Total 600 / 600 Output Total 3600 / 3600 Balance -3000 / -3000 Intake: Oral 0 / 0 Intake, Rinseback and Flushes 600 / 600 Output: Urine 0 / 0 Total Dialysis (HD) Output 3600 / 3600 Other: Weight 75.041 kg 70.3 kg Blood Glucose* 411 95 108 Hemodialysis Net Fluid Removed 3000 (mL) Patient Weight 09/29/18 23:59 Weight 70.3 kg - General Appearance Exam: Gen.: Vitals noted. No acute distress. AAOx0. Does not respond to questions although is sleeping my entry to the room HEENT: oropharynx clear, Normocephalic, atraumatic, MMM Cardiac: RRR, no murmur, +S1/S2 Pulmonary: CTA bilaterally, no wheezes, rales or rhonchi, equal chest expansion Abdomen: soft, patient rules away when attempts at to palpate abdomen. MSK: ROM not assessed, no joint swelling noted Extremities: no BLE edema, nontender calf, no cyanosis or clubbing Neuro: Unable to evaluate secondary to mental status Psych: Unable to assess Results - Lab Results 09/29/18 04:52 09/29/18 07:42 Most recent lab results Calcium 8.8 mg/dL (8.6-10.3) 09/29/18 07:42 Consult Discharge Plan - Plan Referrals: Bartolo Washburn MD [Partnered Physician] - 10/09/18 9:45 am (Please follow up as schedule...) <Bayron Griffin - Last Filed: 10/01/18 23:47> Date of Encounter: 09/29/18 Exam - Vital Signs Vital signs: Initial Vital Signs Temp Pulse Resp BP Pulse Ox 98.0 F 89 20 166/62 99 09/28/18 22:33 09/28/18 22:33 09/28/18 22:33 09/28/18 22:33 09/28/18 22:33 Vital Signs - Last 8 Hours Temp Pulse Resp BP Pulse Ox 10/01/18 21:25 98.3 F 74 16 152/62 96 10/01/18 16:25 99.6 F 83 18 165/80 99 Intake and Output 10/01/18 10/01/18 10/01/18 07:59 15:59 23:59 Intake Total 100 / 100 720 / 720 300 / 300 Output Total 200 / 200 0 / 0 Balance 100 / 100 520 / 520 300 / 300 Intake: IV Fluids 720 / 720 D5% And 0.45% Nacl 1000 Ml Bag 570 / 570 1,000 ML @ 50 mls/hr IVC .Q20H YUSUF Rx#:[id number] Levaquin Premix 750mg/150 mL 150 / 150 750 mg In 150 ml @ 100 mls/hr IVPB Q48H YUSUF Rx#:[id number] Oral 100 / 100 300 / 300 Output: Urine 200 / 200 0 / 0 Other: Stool Size Copious Large Stool Consistency soft soft formed formed Stool Characteristics Normal for Patient Normal for Patient Stool Color Brown Brown # Voids 1 # Bowel Movements 1 Weight 68.3 kg Blood Glucose* 253 237 323 Patient Weight 10/01/18 23:59 Weight 68.3 kg Results - Lab Results 10/01/18 05:04 10/01/18 05:04 Most recent lab results Calcium 8.1 mg/dL (8.6-10.3) L 10/01/18 05:04 Phosphorus 5.2 mg/dL (2.7-4.5) H 10/01/18 05:04 Magnesium 2.0 mg/dL (1.6-2.6) 10/01/18 05:04 - Attending Attestation I examined this patient and my medical decision-making was reviewed with the Resident Physician. I agree with the documented findings, disposition and treatment plan as described except to the extent set forth below. Pt seen and examined on HD, in brief; 67 y o female with PMH of ESRD on HD (well known to me), DM, HTN and recently diagnosed lung cancer admitted from ECF with altered mental status and was diagnosed with UTI. Renal consulted for dialytic support. Exam noted frail and confused and does not recognize me. Continue abx per primary team. Continue HD with UF as tolerated
[2018-09-29] MEDS: D5% in 0.45% NACL 1,000 ML IVC SCH (15:24)
--- NOTE | 2018-09-29 16:45 | Electrocardiograph Report ---
[address] [address] Test Date: 2018-09-29 Pat Name: Alaina Dan Department: 109 Room: 2A42 Gender: F Dredgemaster: : 1950 Requested By: Parviz Buenrostro Order Number: [id number] Reading MD: Mohit Rizzo Measurements Intervals [place] Rate: 79 P: 68 AK: 182 QRS: -14 QRSD: 116 T: 82 QT: 330 QTc: 365 Interpretive Statements SINUS RHYTHM MODERATE INTRAVENTRICULAR CONDUCTION DELAY NONSPECIFIC T-WAVE ABNORMALITY Electronically Signed On 09-29-2018 16:44:16 EST by Mohit Rizzo
[2018-09-29] MEDS: traMADol 50 MG TABLET PO PRN (21:33)
[2018-09-29] MEDS: Mirtazapine 15 MG TABLET PO SCH (21:33)
[2018-09-29] MEDS ORDERED: Lidocaine TOPICAL Soln 50 ML BOTTLE TP ONE (23:39)
--- NOTE | 2018-09-30 02:54 | Event Note ---
Date of Encounter: 09/30/18 Time of Encounter: 02:23 Nurse alerted me that patient had foreign body in left ear. Upon my examination, noted that there was a hearing aid battery lodged in the left ear visible without otoscope, and then clearly identified with otoscope. Nursing staff had initially attempted to remove battery without success. Attempted to remove battery with hemostat and forceps without further lodging battery in ear without success. Pt was complaining of pain only when attempting to manipulate foreign body in ear. Ordered topical lidocaine solution to numb outer ear canal. Applied with cotton swab to ear canal around battery. Again attempted to remove ear with tweezers without success. Attempted to dislodge battery with suction with only minimal success. After consultation with attending Dr. Coombs, will hold off on any further intervention for now. Plan to consult ENT to discuss foreign body removal in the AM.
[2018-09-30] MEDS: *HR* Heparin 5,000 UNIT/ML VIAL SQ SCH ×2 (05:25→18:40)
[2018-09-30 05:55] LABS: Basophils % 0.6 %; Eosinophils # 0.1 K/mcL (0.0-0.6); Eosinophils % 2.2 %; Hematocrit 37.3 % (35.3-44.9); Hemoglobin 12.1 g/dL (11.5-15.4); Immature Granulocytes % 0.5 % (0-4); Lymphocytes # 1.7 K/mcL (0.6-4.6); Lymphocytes % 25.8 %; Mean Corpuscular HGB Conc 32.4 g/dL (31.6-35.5); Mean Corpuscular Hemoglobin 30.8 pg (28.0-33.3); Mean Corpuscular Volume 94.9 fL (83.0-100.0); Mean Platelet Volume 10.5 fL (9.4-12.4); Monocytes # 0.8 K/mcL (0.0-1.3); Monocytes % 11.9 %; Neutrophils # 3.8 K/mcL (1.6-8.9); Platelet Count 241 K/mcL (140-400); Red Blood Count 3.93 M/mcL (3.82-4.97); Red Cell Distribution Width 14.3 % (11.5-14.5)
[2018-09-30] MEDS ORDERED: cefTRIAXone 1,000 MG in Water for inj. (sterile) 20 ML 10 ML IVP SCH (06:00)
[2018-09-30 06:13] LABS: Calcium 8.9 mg/dL (8.6-10.3); Magnesium 1.9 mg/dL (1.6-2.6); Phosphorous 3.1 mg/dL (2.7-4.5); Potassium 3.5 mEq/L (3.5-5.1)
[2018-09-30] MEDS: Insulin LISPRO 300 UNITS/3 ML VIAL SQ SCH ×4 (08:05→20:58)
[2018-09-30] MEDS: cefTRIAXone 1,000 MG in Water for inj. (sterile) 20 ML 10 ML IVP SCH (11:17)
[2018-09-30] MEDS: Aspirin Enteric Coated 81 MG Tablet PO SCH (11:18)
[2018-09-30] MEDS: Metoprolol XL (24 HR) Succ 25 MG TAB.ER.24H PO SCH (11:19)
[2018-09-30] MEDS: Insulin DETEMIR 100 UNIT/ML X5UNITS SQ SCH ×2 (11:19→20:58)
[2018-09-30] MEDS: Furosemide 20 MG/2 ML VIAL IVP SCH (11:19)
[2018-09-30] MEDS: Pantoprazole 40 MG VIAL IVP SCH (11:19)
--- NOTE | 2018-09-30 12:42 | Internal Med Progress Note ---
Hospitalist Progress Note - Encounter Date of Encounter: 09/30/18 Time of Encounter: 12:40 - Subjective Interval History: I have seen and evaluated the patient at bedside. Patient mental status has significantly improved patient is now AOX4. reports having abdominal pain, denies nausea, vomiting. - Exam Vitals: Temp Pulse Resp BP Pulse Ox 98.0 F 71 18 118/68 96 09/30/18 11:02 09/30/18 11:02 09/30/18 11:02 09/30/18 11:02 09/30/18 11:02 Exam: Vitals: Reviewed. General: AOX4. No acute distress HEENT: Dry oral mucosa. EOM, pupils equal, round and reactive. Cardiovascular: RRR, Normal S1 & S2, no rubs, murmurs or gallops. No JVD. Pulse regular. Lungs: Clear to auscultation bilaterally, no wheezes or crackles. Abdomen: Soft, non-tender, no rigidity. Extremities: No edema. strength 5/5 in the upper and lower extr b/l. Neurological: CN II-XII intact Rest of the physical exam is non contributory - Assessment and Plan (1) UTI (urinary tract infection) Current Visit: Yes Status: Acute Assessment and Plan: urine culture: growing gram positive cocci. pending sensitivity and specificity. continue ceftriaxone 1gm/IV daily (2) Altered mental status Current Visit: Yes Status: Resolved Assessment and Plan: patient mental status is back/close to her baseline change in mental status most likely due to UTI causing metabolic encephalopathy (3) Diabetes mellitus Current Visit: Yes Status: Chronic Assessment and Plan: blood sugar has been well controlled. patient is on levemir 15 units BID, lispro low dose sliding scale ac and carb/renal diet continue current management (4) End stage chronic kidney disease Current Visit: Yes Status: Chronic Assessment and Plan: renal replacement therapy per nephrology team recommendations. (5) CAD (coronary artery disease) Current Visit: No Status: Chronic Assessment and Plan: Continue dual antiplatelet therapy with aspirin, clopidogrel (6) Hypothyroidism Current Visit: No Status: Chronic Assessment and Plan: Levothyroxine 50 MCG by mouth daily. 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 night team attempted to removed it but unsuccessful (9) Abdominal pain Current Visit: No Status: Acute Assessment and Plan: will obtain a CT of the abdomen for evaluation. patient had left double-J stent placement during her last admission. DVT Prophylaxis: On heparin 5000 units BID - Summary of Assessment and Plan Summary of Assessment and Plan: Patient to remain in the hospital due to encephalopathy/improving due to UTI, pending urine culture sensitivity and specificity. - Time Spent with Patient Total time spent is greater than 50% in coordination of care (as documented) at patient's floor/unit and/or counseling patient: Greater than 35 minutes (40) Plan of Care Discussed with: patient (and the nurse.) Internal Medicine: Result - Labs CBC & Chem 7: 09/30/18 05:23 09/30/18 05:23 Labs: Short CBC 09/30/18 Range/Units 05:23 WBC 6.4 (4.3-11.1) K/mcL Hgb 12.1 (11.5-15.4) g/dL Hct 37.3 (35.3-44.9) % Plt Count 241 (140-400) K/mcL Neutrophils # 3.8 (1.6-8.9) K/mcL BMP 09/30/18 05:23 Sodium 138 Potassium 3.5 Chloride 99 Carbon Dioxide 29 BUN 30 H Creatinine 2.71 H Glucose 131 H Calcium 8.9 Consult Discharge Plan - Plan Referrals: Bartolo Washburn MD [Partnered Physician] - 10/09/18 9:45 am (Please follow up as schedule...) (1) UTI (urinary tract infection) Qualifiers: Urinary tract infection type: site unspecified Hematuria presence: with hematuria Qualified Code(s): N39.0 - Urinary tract infection, site not s pecified; R31.9 - Hematuria, unspecified (2) Altered mental status Qualifiers: Altered mental status type: unspecified Qualified Code(s): R41.82 - Altered mental status, unspecified (3) Diabetes mellitus Qualifiers: Diabetes mellitus type: type 2 Diabetes mellitus ferry terminal agent insulin use: with group home use Diabetes mellitus complication status: with unspecified complications Qualified Code(s): E11.8 - Type 2 diabetes mellitus with unspecified complications; Z79.4 - termination clerk (current) use of insulin (5) CAD (coronary artery disease) Qualifiers: Coronary Disease-Associated Artery/Lesion type: unspecified vessel or lesion type [place] vs. transplanted heart: unspecified whether [place] or transplanted heart Associated angina: angina presence unspecified Qualified Code(s): I25.10 - Atherosclerotic heart disease of [place] coronary artery without angina pectoris (6) Hypothyroidism Qualifiers: Hypothyroidism type: unspecified Qualified Code(s): E03.9 - Hypothyroidism, unspecified (7) Lung cancer Qualifiers: Laterality: right Lung location: unspecified part of lung Qualified Code(s): C34.91 - Malignant neoplasm of unspecified part of right bronchus or lung (8) Foreign body in ear Qualifiers: Encounter type: initial encounter Laterality: left Qualified Code(s): T16.2XXA - Foreign body in left ear, initial encounter (9) Abdominal pain Qualifiers: Abdominal location: generalized Qualified Code(s): R10.84 - Generalized abdominal pain
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
[2018-09-30] MEDS: D5% in 0.45% NACL 1,000 ML IVC SCH ×2 (18:51→21:49)
--- NOTE | 2018-09-30 18:54 | ENT - Procedure Note ---
Date of procedure: 09/30/18 Procedure: Procedure: Removal foreign body left external auditory canal Preoperative diagnosis: Foreign body left external auditory canal Postoperative diagnosis: Same, otitis externa Procedure: Risks, benefits, and alternatives to removal foreign body the left external auditory canal were discussed with the patient at the bedside. Patient did verbally agree. With the patient supine in the bed, head was turned slightly to the right. Nasal speculum was then used to open the EAC and visualize a foreign body. There is a metallic foreign body within the left EAC. This was rounded and shape and appeared to be a button battery. A right angle hook was then used to remove the foreign body by sliding the hook superiorly above the rounded battery so that the angled part of the hook was behind the battery and it was able to be pulled forward. Button battery was successfully removed from the left external auditory canal. The scope was then used to visualize the ear canal following removal and inspect the tympanic membrane. Skin of the external auditory canal was inflamed and erythematous. There is also erythema of the tympanic membrane. No perforation was visualized. Patient tolerated this procedure well. Anesthesia: none Was there an kindergarten teacher assistant present: No Estimated blood loss (cc): 0 Condition: stable
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
[2018-09-30] MEDS: traMADol 50 MG TABLET PO PRN (20:58)
[2018-09-30] MEDS: Mirtazapine 15 MG TABLET PO SCH (20:58)
[2018-09-30] MEDS: Ciprofloxacin/Dex *EAR* Susp 7.5 ML BOTTLE LEFT EAR SCH (20:59)
[2018-10-01 05:26] LABS: Basophils % 0.5 %; Eosinophils # 0.1 K/mcL (0.0-0.6); Eosinophils % 1.4 %; Hematocrit 33.4 % (35.3-44.9); Immature Granulocytes % 0.7 % (0-4); Lymphocytes # 1.5 K/mcL (0.6-4.6); Lymphocytes % 17.8 %; Mean Corpuscular HGB Conc 32.9 g/dL (31.6-35.5); Mean Corpuscular Hemoglobin 31.1 pg (28.0-33.3); Mean Corpuscular Volume 94.4 fL (83.0-100.0); Mean Platelet Volume 10.8 fL (9.4-12.4); Monocytes # 0.9 K/mcL (0.0-1.3); Monocytes % 10.8 %; Neutrophils # 5.8 K/mcL (1.6-8.9); Platelet Count 231 K/mcL (140-400); Red Blood Count 3.54 M/mcL (3.82-4.97); Red Cell Distribution Width 14.4 % (11.5-14.5); Segmented Neutrophils % 68.8 %
[2018-10-01] MEDS: *HR* Heparin 5,000 UNIT/ML VIAL SQ SCH ×2 (05:27→16:43)
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
[2018-10-01] MEDS: Insulin LISPRO 300 UNITS/3 ML VIAL SQ SCH ×4 (08:38→21:13)
[2018-10-01] MEDS: Metoprolol XL (24 HR) Succ 25 MG TAB.ER.24H PO SCH (08:39)
[2018-10-01] MEDS: Aspirin Enteric Coated 81 MG Tablet PO SCH (08:39)
[2018-10-01] MEDS: Insulin DETEMIR 100 UNIT/ML X5UNITS SQ SCH ×2 (08:39→21:14)
[2018-10-01] MEDS: Ciprofloxacin/Dex *EAR* Susp 7.5 ML BOTTLE LEFT EAR SCH ×2 (08:40→21:14)
[2018-10-01] MEDS ORDERED: Levofloxacin 750 MG/150 ML 750 MG/150 ML BAG IVPB SCH (09:00)
[2018-10-01] MEDS: cefTRIAXone 1,000 MG in Water for inj. (sterile) 20 ML 10 ML IVP SCH (09:47)
[2018-10-01] MEDS: Furosemide 20 MG/2 ML VIAL IVP SCH (09:51)
[2018-10-01] MEDS: Lactulose Oral Soln 20 GM/30 ML UDC PO SCH ×2 (09:51→21:13)
[2018-10-01] MEDS: Pantoprazole 40 MG VIAL IVP SCH (09:51)
[2018-10-01 14:53] LABS: Calcium 8.1 mg/dL (8.6-10.3); Phosphorous 5.2 mg/dL (2.7-4.5); Potassium 4.3 mEq/L (3.5-5.1)
[2018-10-01] MEDS: D5% in 0.45% NACL 1,000 ML IVC SCH (15:38)
[2018-10-01] MEDS: traMADol 50 MG TABLET PO PRN (21:13)
[2018-10-01] MEDS: Mirtazapine 15 MG TABLET PO SCH (21:13)
[2018-10-02] MEDS: traMADol 50 MG TABLET PO PRN (04:47)
[2018-10-02] MEDS: *HR* Heparin 5,000 UNIT/ML VIAL SQ SCH ×2 (05:33→17:45)
[2018-10-02] MEDS: Insulin DETEMIR 100 UNIT/ML X5UNITS SQ SCH (07:44)
[2018-10-02] MEDS: Insulin LISPRO 300 UNITS/3 ML VIAL SQ SCH ×3 (07:45→17:44)
[2018-10-02] MEDS: Ciprofloxacin/Dex *EAR* Susp 7.5 ML BOTTLE LEFT EAR SCH (07:45)
[2018-10-02] MEDS: Furosemide 20 MG/2 ML VIAL IVP SCH (07:45)
[2018-10-02] MEDS: Pantoprazole 40 MG VIAL IVP SCH (07:45)
[2018-10-02] MEDS: Metoprolol XL (24 HR) Succ 25 MG TAB.ER.24H PO SCH (07:46)
[2018-10-02] MEDS: Aspirin Enteric Coated 81 MG Tablet PO SCH (07:46)
[2018-10-02] MEDS ORDERED: 0.9 % Sodium Chloride 250 ML IVC PRN (08:04)
[2018-10-02 08:14] LABS: Calcium 8.2 mg/dL (8.6-10.3); Potassium 4.6 mEq/L (3.5-5.1)
[2018-10-02] MEDS ORDERED: 0.9 % Sodium Chloride 1,000 ML PRIME SCH (08:15)
[2018-10-02 08:41] LABS: Hematocrit 38.1 % (35.3-44.9); Hemoglobin 11.8 g/dL (11.5-15.4); Mean Corpuscular Hemoglobin 30.3 pg (28.0-33.3); Mean Corpuscular Volume 97.7 fL (83.0-100.0); Mean Platelet Volume 10.8 fL (9.4-12.4); Platelet Count 228 K/mcL (140-400); Red Cell Distribution Width 14.4 % (11.5-14.5)
[2018-10-02] MEDS ORDERED: Levofloxacin 750 MG/150 ML 750 MG/150 ML BAG IVPB ONE (09:30)
[2018-10-02] MEDS ORDERED: 0.9 % Sodium Chloride 2,000 ML ONE (10:44)
--- NOTE | 2018-10-02 14:19 | Discharge Summary ---
- NOTES TO OUTPATIENT PROVIDER Notes to Outpatient Provider: f/u with infectious disease within a week of hospital discharge. F/U with ENT within a week of hospital discharge. Orders not resulted at time of discharge: Pending orders 09/29/18 01:22 Culture,Urine [RM] Stat 10/02/18 10:45 Culture,Blood [BC] Stat Date of Encounter: 10/02/18 Time of Encounter: 14:13 - Discharge Diagnosis (1) UTI (urinary tract infection) Priority: Primary Status: Acute Qualifiers: Urinary tract infection type: site unspecified Hematuria presence: with hematuria Qualified Code(s): N39.0 - Urinary tract infection, site not specified; R31.9 - Hematuria, unspecified (2) Altered mental status Priority: Secondary Status: Resolved Qualifiers: Altered mental status type: unspecified Qualified Code(s): R41.82 - Altered mental status, unspecified (3) Diabetes mellitus Priority: Secondary Status: Chronic Qualifiers: Diabetes mellitus type: type 2 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 transplanted heart: unspecified whether [place] or transplanted heart Associated angina: angina presence unspecified Qualified Code(s): I25.10 - Atherosclerotic heart disease of [place] coronary artery without angina pectoris (6) Hypothyroidism Priority: Secondary Status: Chronic Qualifiers: Hypothyroidism type: unspecified Qualified Code(s): E03.9 - Hypothyroidism, unspecified (7) Lung cancer Priority: Secondary Status: Chronic Qualifiers: Laterality: right Lung location: unspecified part of lung Qualified Code(s): C34.91 - Malignant neoplasm of unspecified part of right bronchus or lung (8) Foreign body in ear Priority: Secondary Status: Resolved Qualifiers: Encounter type: initial encounter Laterality: left Qualified Code(s): T16.2XXA - Foreign body in left ear, initial encounter (9) Abdominal pain Priority: Secondary Status: Resolved Qualifiers: Abdominal location: generalized Qualified Code(s): R10.84 - Generalized abdominal pain (10) Chemical burn of ear drum Priority: Secondary Status: Acute Qualifiers: Encounter type: initial encounter Qualified Code(s): T28.912A - Corrosions of left ear drum, initial encounter (11) Hypertension Priority: Secondary Status: Chronic Qualifiers: Hypertension type: unspecified Qualified Code(s): I10 - Essential (primary) hypertension Hospital course: Ms. Dan is a 67 year old female past medical history significant for ESRD on dialysis, CAD with CABG, diabetes, hyperlipidemia, hypertension, thyroid disease, lung cancer in remission, anxiety, and depression who presents from [facility] for hyperglycemia with blood sugar in 400's after reportedly missing evening insulin. Patient noticed to have an acute change in her mental status, for which a UA was done and came back positive for a UTI. patient admitted to the hospital due to AMS due to UTI. Patient treated with empiric Iv antibiotics. Urine culture grew: Entreococcus faecium and Gram positive cocci, ID was consulted due to enterococus being resistant to multiple antibiotics. ID recommended patient to be discharged on Vancomycin for 2 weeks, medication to be given to the patient after HD, patient scheduled for HD M,,. Due to abdominal pain and recent J-stent placed a ct abd/pelvis was done: Interval placement of a left nephroureteral stent, which is in appropriate position. Trace left-sided hydronephrosis is decreased from the prior exam. 2. Stable position of a right nephroureteral stent, with unchanged mild to moderate hydronephrosis. 3. Unchanged appearance of bladder wall thickening and adjacent fat stranding, which is nonspecific but could be seen with cystitis. A small amount of air within the bladder is presumed related to recent catheterization. During this admission patient found to have a battery from her hearing lodged in her left ear for which ENT was consulted with suscessful removal of the battery. recommended to follow up with them because patient might need debridement from a chemical extrenal otitis. Patient acute symptoms have resolved and patient is being discharge on IV antibiotics as mentioned above. Recommended to follow-up with ID, and ENT within 1 week of hospital discharge. - Time Spent with Patient Total time spent providing and/or coordinating discharge services: Greater than 30 minutes (35) - Discharge Medications Prescriptions: Ciprofloxacin/Dex *EAR* Susp [Ciprodex *EAR* Susp] 4 drop LEFT EAR BID 5 Days #1 bottle Vancomycin [Vancocin] 1 each IVPB AD PRN 6 Days #6 vial PRN Reason: See Comments Home Medications: Folic Acid 1 mg PO DAILY 07/10/15 [History] Levothyroxine [Synthroid] 50 mcg PO 199907/10/15 [History] Pantoprazole Sodium [Protonix] 40 mg PO BID 07/10/15 [History] Docusate [Colace] 100 mg PO BID 10/14/16 [History] Albuterol Sulfate [Proair Hfa] 2 puff IH Q4H PRN 03/17/17 [History] Atorvastatin [Lipitor] 40 mg PO HS 03/17/17 [History] Clopidogrel [Plavix] 75 mg PO DAILY 05/09/17 [History] Sucralfate [Carafate] 1 gm PO 0730,1630 05/09/17 [History] Furosemide [Lasix] 20 mg PO DAILY 03/01/18 [History] Amitriptyline [Elavil] 25 mg PO HS 03/26/18 [History] Ergocalciferol (VITAMIN D2) [Drisdol] 50,000 unit PO MO 03/26/18 [History] Insulin DETEMIR [Levemir] 12 unit SQ 0800 03/26/18 [History] Tamsulosin [Flomax] 0.4 mg PO DAILY 03/26/18 [History] Zolpidem [Ambien] 5 mg PO HS 03/26/18 [History] Lactobacillus Combination No.8 [Adult Probiotic] 1 cap PO DAILY 05/04/18 [History] Pramipexole Di-HCl [Pramipexole Dihydrochloride] 0.125 mg PO HS 05/04/18 [History] Promethazine [Phenergan] 25 mg PO TID PRN 05/04/18 [History] Psyllium Husk [Daily Fiber] 0.52 gm PO DAILY 05/04/18 [History] SUMAtriptan Succinate [Imitrex] 6 mg SQ BID PRN 05/04/18 [History] Baclofen [Lioresal] 10 mg PO TID PRN 07/31/18 [History] Lisinopril [Zestril] 20 mg PO SUTUTHSA 07/31/18 [History] Mirtazapine [Remeron] 15 mg PO HS 07/31/18 [History] Insulin DETEMIR [Levemir Flextouch] 14 unit SQ 2000 08/06/18 [History] Aspirin Enteric Coated [Aspirin EC] 81 mg PO DAILY 09/04/18 [History] Calcium Carbonate [Calcium] 500 mg PO BID 09/04/18 [History] Folic Acid/Vit Bcomp,C [Renal Vitamin Tablet] 0.8 mg PO DAILY 09/04/18 [History] Metoprolol XL (24 HR) Succ [Toprol Xl] 12.5 mg PO SUTUTHSA 09/04/18 [History] Midodrine [ProAmatine] 5 mg PO MOWEFR 09/04/18 [History] Oxybutynin Chloride [Ditropan Xl] 10 mg PO DAILY 09/04/18 [History] OxyCODONE/APAP 5/325 [Percocet 5/325 MG] 1 tab PO TID PRN 3 Days #9 tablet 09/06/18 [Rx] Ciprofloxacin/Dex *EAR* Susp [Ciprodex *EAR* Susp] 4 drop LEFT EAR BID 5 Days #1 bottle 10/02/18 [Rx] Vancomycin [Vancocin] 1 each IVPB AD PRN 6 Days #6 vial 10/02/18 [Rx] Allergies/Adverse Reactions: Allergy/AdvReac Type Severity Reaction Status Date / Time adhesive tape Allergy Redness of Verified 09/28/18 15:57 Skin latex Allergy Swelling Verified 09/29/18 09:10 of Lip/Tongue/Throat Sulfa (Sulfonamide Allergy Rash Verified 09/29/18 09:10 Antibiotics) Date of admission: 10/01/18 18:47 Primary care physician: Jozef Sahu MD Consults: 09/29/18 04:07 Consult to Nephrology [CONS] Routine Consulting Provider: Bayron Griffin Reason for Consult: Receives dialysis M, W, F. Will need dialysis while in hospital. Call Completed: No 09/29/18 07:45 Consult to Dialysis [CONS] ONCE 09/29/18 18:38 Consult to Carrier Operator [CONS] Routine Reason for SW Consult: from assisted living 09/30/18 02:55 Consult to ENT [CONS] Routine Consulting Provider: [facility] [place] Reason for Consult: Foreign body in left ear. Pt has put hearing aid battery in left ear. Attempted to remove without success. Call Completed: No 10/02/18 08:15 Consult to Dialysis [CONS] ONCE 10/02/18 09:32 Consult to Infectious Diseases [CONS] Routine Consulting Provider: Infectious Disease [place] Reason for Consult: ANTIBIOTICS FOR DC PLANNING Call Completed: No 10/02/18 12:25 Consult to Physical Therapy [CONS] Routine Comment: Evaluate, develop and implement POC Reason for Consult: Generalized weakness Does patient have active BEDREST order?: No Is patient medically & hemodynamically stable?: Yes 10/02/18 12:26 Consult to Occupational Therapy [CONS] Routine Comment: Evaluate, develop and implement POC Reason for Consult: Generalized weakness Does patient have active BEDREST order?: No Is patient medically & hemodynamically stable?: Yes - Constitutional Vitals: Temp Pulse Resp BP Pulse Ox 98.2 F 69 16 139/69 94 10/02/18 07:23 10/02/18 07:23 10/02/18 07:23 10/02/18 07:23 10/02/18 07:23 Exam: Vitals: Reviewed. General: AOX4. No acute distress HEENT: Dry oral mucosa. EOM, pupils equal, round and reactive. Cardiovascular: RRR, Normal S1 & S2, no rubs, murmurs or gallops. No JVD. Pulse regular. Lungs: Clear to auscultation bilaterally, no wheezes or crackles. Abdomen: Soft, non-tender, no rigidity. Extremities: No edema. strength 5/5 in the upper and lower extr b/l. Neurological: CN II-XII intact Rest of the physical exam is non contributory - Patient Status Disposition: Transfer LTC Condition: Good Functional capacity at discharge: independent ambulation Overall status at discharge: patient is back to baseline - Discharge Instructions Follow Up With: Bartolo Washburn MD [Partnered Physician] - 10/09/18 9:45 am (Please follow up as schedule...) - Diet and Activity Activity: resume usual activities as tolerated Diet: diabetic diet, low salt diet
--- NOTE | 2018-10-02 14:22 | Nephrology Progress Note ---
Date of Encounter: 10/02/18 Time of Encounter: 10:50 - Assessment and Plan (1) End stage chronic kidney disease Current Visit: Yes Status: Chronic - Normally MWF HD via fistula at [facility], from SNF - Unlikely source of encephalopathy as her labs are at baseline and she has been complaint, which is resolved - BUN/ Cr of 67/4.31, GFR of 10. - Continue with normally scheduled MWF HD. In HD today - Avoid nephrotoxins and renally dose medications - Renal vitamins. - Additional HD as needed. (2) Acute metabolic encephalopathy Current Visit: Yes Status: Resolved - Appears to be resolved -Likely secondary to UTI and less likely related to ESRD - Similar presentation 1 month ago due to UTI at that time. - Further management of underlying illness per primary team (3) UTI (urinary tract infection) Current Visit: Yes Status: Acute Per primary team Cultures positive for enterococcus and gram-positive cocci Qualifiers: Urinary tract infection type: site unspecified Hematuria presence: with hematuria Qualified Code(s): N39.0 - Urinary tract infection, site not specified; R31.9 - Hematuria, unspecified (4) Diabetes mellitus Current Visit: Yes Status: Chronic Uncontrolled on admission in 400s, possibly related to infection Further management per primary team Qualifiers: Diabetes mellitus type: type 2 Diabetes mellitus alf insulin use: with technician terminal and repeater use Diabetes mellitus complication status: with unspecified complications Qualified Code(s): E11.8 - Type 2 diabetes mellitus with unspecified complications; Z79.4 - director long term care (current) use of insulin (5) Anemia Current Visit: Yes Status: Chronic Stable this morning at 11.8 Goal is 10-11 Transfusion parameters per primary team Qualifiers: Anemia type: unspecified type Qualified Code(s): D64.9 - Anemia, unspecified Subjective Principal diagnosis: ESRD on dialysis Interval history: Patient was seen and examined in dialysis this morning. She states she feels much improved and is back to her baseline. She is notably more alert and oriented during my examination today and is very pleasant during conversation. She has no complaints including fevers, chills, nausea, vomiting, pain, urinary symptoms. Objective - Vital Signs Vital signs: Vital Signs Temp Pulse Resp BP Pulse Ox 10/02/18 07:23 98.2 F 69 16 139/69 94 10/02/18 05:35 99.5 F 10/02/18 04:20 100.3 F H 75 16 144/62 95 10/02/18 00:33 99.3 F 75 17 159/69 95 10/01/18 21:25 98.3 F 74 16 152/62 96 10/01/18 16:25 99.6 F 83 18 165/80 99 Intake and Output 10/01/18 10/02/18 10/02/18 23:59 07:59 15:59 Intake Total 300 / 300 200 / 200 Output Total 0 / 0 0 / 0 Balance 300 / 300 200 / 200 Intake: Oral 300 / 300 200 / 200 Output: Urine 0 / 0 0 / 0 Other: Stool Size Large Moderate Stool Consistency soft soft formed formed Stool Characteristics Normal for Patient Normal for Patient Stool Color Brown Brown # Voids 1 # Urine Diapers 1 # Bowel Movements 1 1 Weight 73.4 kg Blood Glucose* 323 202 149 Patient Weight 10/02/18 23:59 Weight 73.4 kg - General Appearance Exam: Gen.: Vitals noted. No acute distress. AAOx3 HEENT: PERRL/EOMI, oropharynx clear, Normocephalic, atraumatic, MMM Cardiac: RRR, no murmur, +S1/S2 Pulmonary: CTA bilaterally, no wheezes, rales or rhonchi, equal chest expansion Abdomen: soft, she is tender to palpation on suprapubic and lower left quadrant, BS noted, no guarding, no rebound. MSK: no joint swelling noted Extremities: no BLE edema, nontender calf, no cyanosis or clubbing Neuro: A&Ox3, moves all extremities, no focal deficits Psych: Appropriate mood and behavior - Lab 10/02/18 08:26 10/02/18 07:34 Most recent lab results Calcium 8.2 mg/dL (8.6-10.3) L 10/02/18 07:34 Phosphorus 5.2 mg/dL (2.7-4.5) H 10/01/18 05:04 Magnesium 2.0 mg/dL (1.6-2.6) 10/01/18 05:04 Consult Discharge Plan - Plan Referrals: Bartolo Wsahburn MD [Partnered Physician] - 10/09/18 9:45 am (Please follow up as schedule...) Prescriptions: Ciprofloxacin/Dex *EAR* Susp [Ciprodex *EAR* Susp] 4 drop LEFT EAR BID 5 Days #1 bottle Vancomycin [Vancocin] 1 each IVPB AD PRN 6 Days #6 vial PRN Reason: See Comments
[2018-10-02] MEDS: Lactulose Oral Soln 20 GM/30 ML UDC PO SCH (15:04)
[2018-10-02 17:46] VITALS: BP 98/46
[2018-10-02] MEDS ORDERED: Aminoglycoside Consult 1 EACH MC ONE (19:37)
[2018-10-03] MEDS ORDERED: Levofloxacin 500 MG/100 ML 500 MG/100 ML BAG IVPB SCH (09:00)
--- NOTE | 2018-10-03 09:37 | Infectious Disease Consult ---
Date of Encounter: 10/02/18 Time of Encounter: 09:32 Assessment and Plan (1) Sepsis Status: Acute Assessment and plan: On 09/30/2018 patient had 2 sets criteria including fever and tachycardia Likely secondary to UTI Resolved Qualifiers: Sepsis type: sepsis due to unspecified organism Qualified Code(s): A41.9 - Sepsis, unspecified organism (2) UTI (urinary tract infection) Status: Acute Assessment and plan: Causative organism ampicillin resistant enterococcus and another gram-positive cocci Patient also has associated abdominal pain Discussed with the hospitalist team, we will treat with vancomycin which should cover that and we can give it during dialysis Do CT abdomen and pelvis without contrast to make sure that there is no other process going on Duration of treatment depends on the clinical picture and what we see on CT finding but at least 2 weeks because the patient has stents Need to follow-up another gram-positive cocci that was noted on the culture but has not been identified. I did call microbiology lab and they said they run again because is was an unusual organism. Monitor labs and for drug toxicity Goal vancomycin trough 10-15 Qualifiers: Urinary tract infection type: site unspecified Hematuria presence: with hematuria Qualified Code(s): N39.0 - Urinary tract infection, site not specified; R31.9 - Hematuria, unspecified (3) Allergy to multiple antibiotics Status: Acute Assessment and plan: Allergic to sulfa. Patient stated that she had hives and swelling. (4) ESRD (end stage renal disease) on dialysis Status: Chronic (5) Altered mental status Status: Resolved Qualifiers: Altered mental status type: unspecified Qualified Code(s): R41.82 - Altered mental status, unspecified (6) Hyperglycemia Status: Acute (7) Diabetes mellitus Status: Chronic Qualifiers: Diabetes mellitus type: type 2 Diabetes mellitus assisted insulin use: with computer terminal operator use Diabetes mellitus complication status: with unspecified complications Qualified Code(s): E11.8 - Type 2 diabetes mellitus with unspecified complications; Z79.4 - assisted (current) use of insulin (8) End stage chronic kidney disease Status: Chronic Infectious Disease HPI - Data of Consult Patient: new to practice Consult date: 10/02/18 Requesting Physician: Sedrick Sánchez MD Primary Care Provider: Jozef Sahu MD - Consult Narrative Reason for consult: "Antibiotics for DC planning" History of present illness: Ms. Dan is a 67 year old female Patient is a 67-year-old gentleman with past medical history mentioned below presented to [facility] on 09/28/2018 with hyperglycemia, we are consulted today for antibiotics recommendations. Patient 67-year-old woman with past medical history mentioned below including end-stage and disease on hemodialysis Tuesday was in Tuesday, coronary artery disease with history of CABG in the past, diabetes mellitus type 2, hyperlipidemia, hypertension, thyroid disease and history of lung cancer in remission was transferred from [facility] for hyperglycemia with a blood sugar running in the 400s. Patient was also apparently confused and having altered mentation. Apparently she gets that with the UTI. Rest of the review of system was unremarkable. Since admission, patient was febrile with a MAXIMUM TEMPERATURE of 101 Fahrenheit, had 1 or 2 episodes of tachycardia but no tachypnea. Presenting labs revealed WBC within normal limit with normal differential no bands. BUN of 58 creatinine of 3.7 and glucose of 416. LFTs were within normal limit. A urinalysis was obtained which revealed large leukocyte esterase and WBCs are too numerous to count. Cultures were obtained which revealed enterococcus fascia and the mother gram-positive cocci. Blood cultures were obtained 2 and are no growth to date. Patient continues to produce urine. Patient's tells me that she usually self catheter. Currently patient appears comfortable lying in bed. Awake alert oriented no confusion. Review of systems unremarkable other than she is having bilateral lower abdominal quadrant pain. Patient denies any chest pain or shortness of breath. No nausea or vomiting. No diarrhea or constipation. Dysuria resolved. CC: Sedrick Sánchez MD Past Med Surg Social Fam HX - Past Medical History Medical history: arthritis, cancer, coronary artery disease, diabetes, dialysis, GERD, hyperlipidemia, hypertension, myocardial infarction, renal disease, other Additional medical history: neuropathy, insomnia Psychiatric history: anxiety, depression - Past Surgical History Surgical History: appendectomy, cholecystectomy, coronary bypass (CABG), hysterectomy, ureteral stent, other Additional surgical history: colonoscopy - egd - tubal ligation - kidney stent - Social History Smoking Status: Never smoker Smokeless Tobacco Status: No Alcohol use: none Drug use: none - Family History Mother Living Status: Hx Family Endocrine Disorder: (DM) Father Adopted: No Hx Family Cardiac Disorders: Yes ("heart troubles") Hx Family Cancer: Yes (Prostate cancer) Hx Family Endocrine Disorder: Yes (DM) Brother Hx Family Cardiac Disorders: Yes (CAD) Hx Family Cancer: Yes (lung cancer) Infectious Disease-CN:Meds Folic Acid 1 mg PO DAILY 07/10/15 [History] Levothyroxine [Synthroid] 50 mcg PO 2000 07/10/15 [History] Pantoprazole Sodium [Protonix] 40 mg PO BID 07/10/15 [History] Docusate [Colace] 100 mg PO BID 10/14/16 [History] Albuterol Sulfate [Proair Hfa] 2 puff IH Q4H PRN 03/17/17 [History] Atorvastatin [Lipitor] 40 mg PO HS 03/17/17 [History] Clopidogrel [Plavix] 75 mg PO DAILY 05/09/17 [History] Sucralfate [Carafate] 1 gm PO 0730,1630 05/09/17 [History] Furosemide [Lasix] 20 mg PO DAILY 03/01/18 [History] Amitriptyline [Elavil] 25 mg PO HS 03/26/18 [History] Ergocalciferol (VITAMIN D2) [Drisdol] 50,000 unit PO MO 03/26/18 [History] Insulin DETEMIR [Levemir] 12 unit SQ 0800 03/26/18 [History] Tamsulosin [Flomax] 0.4 mg PO DAILY 03/26/18 [History] Zolpidem [Ambien] 5 mg PO HS 03/26/18 [History] Lactobacillus Combination No.8 [Adult Probiotic] 1 cap PO DAILY 05/04/18 [History] Pramipexole Di-HCl [Pramipexole Dihydrochloride] 0.125 mg PO HS 05/04/18 [History] Promethazine [Phenergan] 25 mg PO TID PRN 05/04/18 [History] Psyllium Husk [Daily Fiber] 0.52 gm PO DAILY 05/04/18 [History] SUMAtriptan Succinate [Imitrex] 6 mg SQ BID PRN 05/04/18 [History] Baclofen [Lioresal] 10 mg PO TID PRN 07/31/18 [History] Lisinopril [Zestril] 20 mg PO SUTUTHSA 07/31/18 [History] Mirtazapine [Remeron] 15 mg PO HS 07/31/18 [History] Insulin DETEMIR [Levemir Flextouch] 14 unit SQ 2000 08/06/18 [History] Aspirin Enteric Coated [Aspirin EC] 81 mg PO DAILY 09/04/18 [History] Calcium Carbonate [Calcium] 500 mg PO BID 09/04/18 [History] Folic Acid/Vit Bcomp,C [Renal Vitamin Tablet] 0.8 mg PO DAILY 09/04/18 [History] Metoprolol XL (24 HR) Succ [Toprol Xl] 12.5 mg PO SUTUTHSA 09/04/18 [History] Midodrine [ProAmatine] 5 mg PO MOWEFR 09/04/18 [History] Oxybutynin Chloride [Ditropan Xl] 10 mg PO DAILY 09/04/18 [History] OxyCODONE/APAP 5/325 [Percocet 5/325 MG] 1 tab PO TID PRN 3 Days #9 tablet 09/06/18 [Rx] Ciprofloxacin/Dex *EAR* Susp [Ciprodex *EAR* Susp] 4 drop LEFT EAR BID 5 Days #1 bottle 10/02/18 [Rx] Vancomycin [Vancocin] 1 each IVPB AD PRN 6 Days #6 vial 10/02/18 [Rx] Allergy/AdvReac Type Severity Reaction Status Date / Time adhesive tape Allergy Redness of Verified 09/28/18 15:57 Skin latex Allergy Swelling Verified 09/29/18 09:10 of Lip/Tongue/Throat Sulfa (Sulfonamide Allergy Rash Verified 09/29/18 09:10 Antibiotics) Review of systems: 10 point review of systems done, negative other for what is mentioned in history of present illness. Exam - Constitutional Vitals: Temp Pulse Resp BP Pulse Ox 97.9 F 69 18 98/46 94 10/02/18 13:55 10/02/18 07:23 10/02/18 13:55 10/02/18 13:55 10/02/18 07:23 General appearance: no acute distress, no febrile - Head Head exam: Present: atraumatic, normocephalic - Eye Eye exam: Present: EOMI, PERRL. Absent: sclera anicteric - Neck Neck exam: Present: full ROM. Absent: meningismus - Respiratory Respiratory exam: Present: CTAB. Absent: wheezes - Cardiovascular Cardiovascular exam: Present: RRR, +S1, +S2 - GI/Abdominal GI/Abdominal exam: Present: normal bowel sounds, soft, tenderness Additional comments: Bilateral lower quadrants - Extremities Exam Extremities exam: Present: full ROM - Back Exam Back exam: Present: full ROM. Absent: CVA tenderness (L), CVA tenderness (R) - Neurological Exam Neurological exam: Present: alert, oriented X3 Infectious Disease CN: Results - Labs CBC & Chem 7: 10/02/18 08:26 10/02/18 07:34 Cultures: Cultures 09/29/18 01:22 Urine Culture - Final Urine,Catheterized Enterococcus faecium Vancomycin Resistant Enterococcus faecium 10/02/18 14:11 Blood Culture - Preliminary Peripheral Venipuncture Culture is incubating and being continuously monitored for growth. Final report to follow. 10/02/18 10:45 Blood Culture - Preliminary Peripheral Venipuncture Culture is incubating and being continuously monitored for growth. Final report to follow. Serology: Serology 09/29/18 Range/Units 01:22 Urine Color Yellow (Yellow) Urine Clarity Turbid A (Clear) Urine pH 6.0 (5.0-8.0) pH Units Ur Specific [place] 1.018 (1.010-1.025) Urine Protein >=300 H (Neg-Trace) mg/dL Urine Glucose (UA) 250 H (Normal) mg/dL Urine Ketones Negative (Negative) mg/dL Urine Blood Large H (Negative) Urine Nitrite Negative (Negative) Urine Bilirubin Negative (Negative) Urine Urobilinogen Normal (Normal) mg/dL Ur Leukocyte Esterase Large H (Negative) Urine Microscopic WBC TNTC H (0-3) per hpf Ur Squamous Epith Cells Moderate H (None-Few) per lpf Urine Bacteria None Seen (None-Few) per hpf Hyaline Casts None Seen (None-Few) per lpf Urine Yeast Many H (None Seen) per hpf Ur Culture Indicated? YES A (NO) Consult Discharge Plan - Plan Instructions: Urinary Tract Infection in Women (DC), Diabetes Mellitus Type 2 in Adults (DC) Referrals: Bartolo Washburn MD [Partnered Physician] - 10/09/18 9:45 am (Please follow up as schedule...) Raven Grant DO [Non-Partnered Physician] - (web requested appt on 10/02) Prescriptions: Ciprofloxacin/Dex *EAR* Susp [Ciprodex *EAR* Susp] 4 drop LEFT EAR BID 5 Days #1 bottle Vancomycin [Vancocin] 1 each IVPB AD PRN 6 Days #6 vial PRN Reason: See Comments
--- NOTE | 2018-10-03 09:46 | Event Note ---
Date of Encounter: 10/03/18 Time of Encounter: 09:43 CT abdomen and pelvis reviewed. Urine culture reviewed and is also showing VRE Called the hospitalist team notified him that the patient is to be on Zyvox for 2 weeks. d/c vancomycin weekly cbc and bmp d/w Dr. Terrazas
--- NOTE | 2018-10-03 09:54 | Event Note ---
Date of Encounter: 10/03/18 Time of Encounter: 09:51 Called by ID second urine culture came back positive for a VRE organism. ID recommended to DC vancomycin and Start linezolid 600mg/IV BID x2 weeks. licensing services clerk called (Kate), they will reach out to the assisting living facility to inform them about the antibiotics needs. as per social services patient could be transferred to the correction section at the same location to receive the antibiotics.
== END 2018-10-02 19:38 | DRG 871 ==
LOC: EMEROOARM 22:29 → 2ANU 22:29 → SUATTDRO 09-29 02:39 → 2ANU 09-29 03:57
PROVIDERS: ADMIT Internal Medicine; ATTEND Internal Medicine

== ENCOUNTER 2018-10-05 19:51 | Inpatient (IN) ==
--- NOTE | 2018-10-05 20:03 | Emergency Department Note ---
Disposition Clinical Impression: Cystitis Altered mental status Qualifiers: Altered mental status type: unspecified Qualified Code(s): R41.82 - Altered mental status, unspecified Disposition: Admitted As Inpatient Condition: Good Referrals: NONE,PCP [Primary Care Provider] - Forms: ED Satisfaction Letter Time of Disposition: 22:38 Altered Mental Status HPI - General Chief Complaint: ED Altered Mental Status Stated Complaint: AMS Time Seen by Provider: 10/05/18 20:03 Source: EMS Mode of arrival: EMS Limitations: no limitations Nursing Notes Reviewed: Yes Vital Signs Reviewed: Yes - History of Present Illness HPI Narrative: Patient is a 67-year-old female with past medical history of dialysis dependency, hypertension, diagnosed with a UTI last week, bilateral nephroureteral stents, diabetes, CAD. [facility] due to confusion, suprapubic pain. Patient reports that she is currently on vancomycin IV infusion daily. She is on day 4 of 6. She has noted some increased suprapubic pain since her visit to the ER last week, also reports intermittent confusion where she does not know where she has. Currently, the patient has answering questions appropriately. Denies any other chest pain, shortness of breath, nausea, vomiting, diarrhea, dysuria or hematuria, blood in stool. She does report dark urine. She does admit to cough. Denies any productive phlegm. Denies any numbness, tingling, weakness, slurred speech, fa cial droop. - Related Data Home Medications Medication Instructions Recorded Confirmed Folic Acid 1 mg PO DAILY 07/10/15 09/29/18 Levothyroxine [Synthroid] 50 mcg PO 199907/10/15 09/29/18 Pantoprazole Sodium [Protonix] 40 mg PO BID 07/10/15 09/29/18 Docusate [Colace] 100 mg PO BID 10/14/16 09/29/18 Albuterol Sulfate [Proair Hfa] 2 puff IH Q4H PRN 03/17/17 09/29/18 Atorvastatin [Lipitor] 40 mg PO HS 03/17/17 09/29/18 Clopidogrel [Plavix] 75 mg PO DAILY 05/09/17 09/29/18 Sucralfate [Carafate] 1 gm PO 0730,1630 05/09/17 09/29/18 Furosemide [Lasix] 20 mg PO DAILY 03/01/18 09/29/18 Amitriptyline [Elavil] 25 mg PO HS 03/26/18 09/29/18 Ergocalciferol (VITAMIN D2) 50,000 unit PO MO 03/26/18 09/29/18 [Drisdol] Insulin DETEMIR [Levemir] 12 unit SQ 0800 03/26/18 09/29/18 Tamsulosin [Flomax] 0.4 mg PO DAILY 03/26/18 09/29/18 Zolpidem [Ambien] 5 mg PO HS 03/26/18 09/29/18 Lactobacillus Combination No.8 1 cap PO DAILY 05/04/18 09/29/18 [Adult Probiotic] Pramipexole Di-HCl [Pramipexole 0.125 mg PO HS 05/04/18 09/29/18 Dihydrochloride] Promethazine [Phenergan] 25 mg PO TID PRN 05/04/18 09/29/18 Psyllium Husk [Daily Fiber] 0.52 gm PO DAILY 05/04/18 09/29/18 SUMAtriptan Succinate [Imitrex] 6 mg SQ BID PRN 05/04/18 09/29/18 Baclofen [Lioresal] 10 mg PO TID PRN 07/31/18 09/29/18 Lisinopril [Zestril] 20 mg PO SUTUTHSA 07/31/18 09/29/18 Mirtazapine [Remeron] 15 mg PO HS 07/31/18 09/29/18 Insulin DETEMIR [Levemir Flextouch] 14 unit SQ 2000 08/06/18 09/29/18 Aspirin Enteric Coated [Aspirin EC] 81 mg PO DAILY 09/04/18 09/29/18 Calcium Carbonate [Calcium] 500 mg PO BID 09/04/18 09/29/18 Folic Acid/Vit Bcomp,C [Renal 0.8 mg PO DAILY 09/04/18 09/29/18 Vitamin Tablet] Metoprolol XL (24 HR) Succ [Toprol 12.5 mg PO SUTUTHSA 09/04/18 09/29/18 Xl] Midodrine [ProAmatine] 5 mg PO MOWEFR 09/04/18 09/29/18 Oxybutynin Chloride [Ditropan Xl] 10 mg PO DAILY 09/04/18 09/29/18 Previous Rx's Medication Instructions Recorded OxyCODONE/APAP 5/325 [Percocet 1 tab PO TID PRN 3 Days #9 tablet 09/06/18 5/325 MG] Ciprofloxacin/Dex *EAR* Susp 4 drop LEFT EAR BID 5 Days #1 10/02/18 [Ciprodex *EAR* Susp] bottle Vancomycin [Vancocin] 1 each IVPB AD PRN 6 Days #6 vial 10/02/18 Allergies Allergy/AdvReac Type Severity Reaction Status Date / Time adhesive tape Allergy Redness of Verified 09/28/18 15:57 Skin latex Allergy Swelling Verified 09/29/18 09:10 of Lip/Tongue/Throat Sulfa (Sulfonamide Allergy Rash Verified 09/29/18 09:10 Antibiotics) All systems ED: reviewed and negative except as stated. Constitutional: Denies: fever Cardiovascular: Denies: chest pain Respiratory: Reports: cough. Denies: dyspnea, sputum production Gastrointestinal: Reports: abdominal pain. Denies: nausea, vomiting, diarrhea, constipation, hematemesis, melena, hematochezia Genitourinary: Reports: other (Dark urine). Denies: urgency, dysuria, frequency, hematuria Neurological: Reports: confusion. 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 history - Social History Smoking Status: Never smoker Smokeless Tobacco Status: No Alcohol use: Reports: none Drug use: Reports: none Physical Exam - General General appearance: alert - Head Head exam: atraumatic, normocephalic, normal inspection - Eye Eye exam: Present: normal appearance, PERRL, EOMI - ENT ENT exam: normal exam, normal oropharynx, mucous membranes moist - Neck Neck exam: Present: normal inspection, full ROM, trachea midline - Chest Chest inspection: Present: normal inspection, symmetric chest wall rise - Respiratory Respiratory exam: Present: normal lung sounds bilaterally - Cardiovascular Cardiovascular exam: Present: regular rate, normal rhythm, normal heart sounds - Abdominal Exam Abdominal exam: Present: soft, tenderness (Significant suprapubic tenderness). Absent: distention, guarding, rebound, rigidity, Sparks's sign, Rovsing's sign, tenderness at McBurney's Point - Extremities Exam Extremities exam: Present: full ROM, other (Venous stasis changes of bilateral lower extremities with small wounds of bilateral distal shins, no localized cellulitis. No pus drainage.). Absent: tenderness - Neurological Exam Neurological exam: Present: alert, oriented X3, CN II-XII intact, other (intermitten confusion on exam, answering some questions inappropriately but oriented x 3). Absent: motor sensory deficit - Expanded Neurological Exam Patient oriented to: Present: person, place, time Speech: Present: fluid speech Cranial nerves: EOM function (II, III, IV, ): Normal, facial sensation (V): Normal, facial palsy (VII): Normal, spinal accessory function (XI): Normal, tongue deviation (XII): Normal Motor strength - LUE: 5/5 Motor strength - RUE: 5/5 Motor strength - LLE: 5/5 Motor strength - RLE: 5/5 Sensory exam upper extremity: light touch: Normal Sensory exam lower extremity: light touch: Normal Coma Scale Eye Opening: Spontaneous Coma Scale Motor Response: Obeys Commands Coma Scale Verbal Response: Confused Coma Scale Total: 14 - Psychiatric Psychiatric exam: Present: normal affect, normal mood - Skin Skin exam: Present: warm, dry, intact, normal color Course Course Narrative: No focal neurologic deficits. Patient is oriented 3 but is answering some questions inappropriately. She has intermittent confusion on exam. Physical exam shows suprapubic tenderness. I reviewed the urinalysis sensitivity and culture. Patient has VRE UTI. She is currently being treated with vancomycin. We will resume was sensitive to linezolid. We will discontinue vancomycin and give the patient a dose of linezolid. We will obtain repeat urinalysis, basic labs, chest x-ray due to report of cough. 22:39 CT abdomen and pelvis shows cystitis/bladder wall thickening. Anemia, kidney function are near baseline for the patient. Urinalysis shows white blood cells, no bacteria. However, recent culture concerning for VRE UTI within past week. Will admit for cystitis, AMS, and recommend infectious disease consult for further care. Vital Signs Temperature 98.0 F 10/05/18 20:03 Pulse Rate 73 10/05/18 20:03 Respiratory Rate 18 10/05/18 20:03 Blood Pressure 173/78 10/05/18 20:03 O2 Sat by Pulse Oximetry 100 10/05/18 20:03 Temperature 98.0 F 10/05/18 20:03 Pulse Rate 85 10/05/18 22:15 Respiratory Rate 18 10/05/18 22:15 Blood Pressure 153/62 10/05/18 22:15 O2 Sat by Pulse Oximetry 100 10/05/18 22:15 Oxygen Delivery Oxygen Delivery Room Air Altered Mental Status - Lab Data Result diagrams: 10/05/18 20:39 10/05/18 20:39 Lab Results 10/05/18 10/05/18 10/05/18 Range/Units 20:39 20:39 21:57 WBC 7.2 (4.3-11.1) K/mcL RBC 3.63 L (3.82-4.97) M/mcL Hgb 11.1 L (11.5-15.4) g/dL Hct 34.8 L (35.3-44.9) % MCV 95.9 (83.0-100.0) fL MCH 30.6 (28.0-33.3) pg MCHC 31.9 (31.6-35.5) g/dL RDW 14.1 (11.5-14.5) % Plt Count 205 (140-400) K/mcL MPV 10.8 (9.4-12.4) fL Immature Gran % 0.3 (0-4) % Seg Neutrophils % 67.4 % Lymphocytes % 20.3 % Monocytes % 9.2 % Eosinophils % 2.4 % Basophils % 0.4 % Neutrophils # 4.9 (1.6-8.9) K/mcL Lymphocytes # 1.5 (0.6-4.6) K/mcL Monocytes # 0.7 (0.0-1.3) K/mcL Eosinophils # 0.2 (0.0-0.6) K/mcL Basophils # 0.0 (0.0-0.2) K/mcL Sodium 138 (136-145) mEq/L Potassium 4.1 (3.5-5.1) mEq/L Chloride 96 L (98-107) mEq/L Carbon Dioxide 32 H (23-29) mEq/L BUN 52 H (8-23) mg/dL Creatinine 3.68 H (0.60-1.20) mg/dL Est GFR ( Amer) 15 L (> 60) Est GFR (Non-Af Amer) 12 L (> 60) BUN/Creatinine Ratio 14 (6-26) Glucose 249 H (70-105) mg/dL Calculated Osmolality 308 H (280-300) Calcium 8.8 (8.6-10.3) mg/dL Total Bilirubin 0.3 (0.3-1.0) mg/dL Direct Bilirubin 0.0 (0.0-0.2) mg/dL Indirect Bilirubin 0.3 (0.0-1.2) mg/dL AST 20 (13-39) Units/L ALT 19 (7-52) Units/L Alkaline Phosphatase 159 H (34-104) Units/L Serum Total Protein 6.9 (6.4-8.9) g/dL Albumin 3.3 L (3.5-5.7) g/dL Globulin 3.6 H (2.4-3.5) g/dL Albumin/Globulin Ratio 0.9 L (1.1-2.2) Urine Color Yellow (Yellow) Urine Clarity Cloudy A (Clear) Urine pH 8.0 (5.0-8.0) pH Units Ur Specific [place] 1.006 L (1.010-1.025) Urine Protein 100 H (Neg-Trace) mg/dL Urine Glucose (UA) 100 H (Normal) mg/dL Urine Ketones Negative (Negative) mg/dL Urine Blood Large H (Negative) Urine Nitrite Negative (Negative) Urine Bilirubin Negative (Negative) Urine Urobilinogen Normal (Normal) mg/dL Ur Leukocyte Esterase Moderate H (Negative) Urine Microscopic RBC TNTC H (0-3) per hpf Urine Microscopic WBC 50-100 H (0-3) per hpf Ur Squamous Epith Cells Many H (None-Few) per lpf Urine Bacteria None Seen (None-Few) per hpf Hyaline Casts None Seen (None-Few) per lpf Ur Culture Indicated? NO. A (NO) TPA Checklist - LKW: 3-4.5 hrs Add. Warnings/Precautions Patient/family understanding: The patient/family members have been counseled and understood the risk, benefit, and alternatives of treatment. S.Tracy - S.Tracy Situation: Demographics, MOA Background: Presenting Complaint, Relevant PMH, Meds, & Allergies Assessment: Vital Signs, Course and respsone to treatment, Exam Concerns, Patient/Family Expectation, Pertinant Lab Results Recommendation: Barrier(s) to disposition, Recommendation based on pending studies, treatments, or consults S.B.AZeeshan Report Given to: Dr. Coombs
[2018-10-05 20:52] LABS: Basophils % 0.4 %; Eosinophils # 0.2 K/mcL (0.0-0.6); Eosinophils % 2.4 %; Hematocrit 34.8 % (35.3-44.9); Hemoglobin 11.1 g/dL (11.5-15.4); Immature Granulocytes % 0.3 % (0-4); Lymphocytes # 1.5 K/mcL (0.6-4.6); Lymphocytes % 20.3 %; Mean Corpuscular HGB Conc 31.9 g/dL (31.6-35.5); Mean Corpuscular Hemoglobin 30.6 pg (28.0-33.3); Mean Corpuscular Volume 95.9 fL (83.0-100.0); Mean Platelet Volume 10.8 fL (9.4-12.4); Monocytes # 0.7 K/mcL (0.0-1.3); Monocytes % 9.2 %; Neutrophils # 4.9 K/mcL (1.6-8.9); Platelet Count 205 K/mcL (140-400); Red Blood Count 3.63 M/mcL (3.82-4.97); Red Cell Distribution Width 14.1 % (11.5-14.5); Segmented Neutrophils % 67.4 %
[2018-10-05] MEDS ORDERED: 0.9 % Sodium Chloride 500 ML IVC ONE (20:55)
[2018-10-05 21:12] LABS: Albumin 3.3 g/dL (3.5-5.7); Albumin/Globulin Ratio 0.9 (1.1-2.2); Bilirubin,Indirect 0.3 mg/dL (0.0-1.2); Bilirubin,Total 0.3 mg/dL (0.3-1.0); Calcium 8.8 mg/dL (8.6-10.3); Globulin 3.6 g/dL (2.4-3.5); Potassium 4.1 mEq/L (3.5-5.1); Total Protein 6.9 g/dL (6.4-8.9)
--- NOTE | 2018-10-05 21:56 | Emergency Department Note ---
Disposition Clinical Impression: Cystitis Altered mental status Qualifiers: Altered mental status type: unspecified Qualified Code(s): R41.82 - Altered mental status, unspecified Disposition: Admitted As Inpatient Condition: Good Referrals: NONE,PCP [Primary Care Provider] - Forms: ED Satisfaction Letter General Adult HPI - General Chief complaint: ED Altered Mental Status Stated complaint: AMS Time Seen by Provider: 10/05/18 20:03 Source: EMS Mode of arrival: EMS Limitations: no limitations Nursing Notes Reviewed: Yes Vital Signs Reviewed: Yes - History of Present Illness Pain Scale: 0 - Related Data Home Medications Medication Instructions Recorded Confirmed Folic Acid 1 mg PO DAILY 07/10/15 09/29/18 Levothyroxine [Synthroid] 50 mcg PO 199907/10/15 09/29/18 Pantoprazole Sodium [Protonix] 40 mg PO BID 07/10/15 09/29/18 Docusate [Colace] 100 mg PO BID 10/14/16 09/29/18 Albuterol Sulfate [Proair Hfa] 2 puff IH Q4H PRN 03/17/17 09/29/18 Atorvastatin [Lipitor] 40 mg PO 03/17/17 09/29/18 Clopidogrel [Plavix] 75 mg PO DAILY 05/09/17 09/29/18 Sucralfate [Carafate] 1 gm PO 0730,1630 05/09/17 09/29/18 Furosemide [Lasix] 20 mg PO DAILY 03/01/18 09/29/18 Amitriptyline [Elavil] 25 mg PO HS 03/26/18 09/29/18 Ergocalciferol (VITAMIN D2) 50,000 unit PO MO 03/26/18 09/29/18 [Drisdol] Insulin DETEMIR [Levemir] 12 unit SQ 0800 03/26/18 09/29/18 Tamsulosin [Flomax] 0.4 mg PO DAILY 03/26/18 09/29/18 Zolpidem [Ambien] 5 mg PO HS 03/26/18 09/29/18 Lactobacillus Combination No.8 1 cap PO DAILY 05/04/18 09/29/18 [Adult Probiotic] Pramipexole Di-HCl [Pramipexole 0.125 mg PO HS 05/04/18 09/29/18 Dihydrochloride] Promethazine [Phenergan] 25 mg PO TID PRN 05/04/18 09/29/18 Psyllium Husk [Daily Fiber] 0.52 gm PO DAILY 05/04/18 09/29/18 SUMAtriptan Succinate [Imitrex] 6 mg SQ BID PRN 05/04/18 09/29/18 Baclofen [Lioresal] 10 mg PO TID PRN 07/31/18 09/29/18 Lisinopril [Zestril] 20 mg PO SUTUTHSA 07/31/18 09/29/18 Mirtazapine [Remeron] 15 mg PO HS 07/31/18 09/29/18 Insulin DETEMIR [Levemir Flextouch] 14 unit SQ 2000 08/06/18 09/29/18 Aspirin Enteric Coated [Aspirin EC] 81 mg PO DAILY 09/04/18 09/29/18 Calcium Carbonate [Calcium] 500 mg PO BID 09/04/18 09/29/18 Folic Acid/Vit Bcomp,C [Renal 0.8 mg PO DAILY 09/04/18 09/29/18 Vitamin Tablet] Metoprolol XL (24 HR) Succ [Toprol 12.5 mg PO SUTUTHSA 09/04/18 09/29/18 Xl] Midodrine [ProAmatine] 5 mg PO MOWEFR 09/04/18 09/29/18 Oxybutynin Chloride [Ditropan Xl] 10 mg PO DAILY 09/04/18 09/29/18 Previous Rx's Medication Instructions Recorded OxyCODONE/APAP 5/325 [Percocet 1 tab PO TID PRN 3 Days #9 tablet 09/06/18 5/325 MG] Ciprofloxacin/Dex *EAR* Susp 4 drop LEFT EAR BID 5 Days #1 10/02/18 [Ciprodex *EAR* Susp] bottle Vancomycin [Vancocin] 1 each IVPB AD PRN 6 Days #6 vial 10/02/18 Allergies Allergy/AdvReac Type Severity Reaction Status Date / Time adhesive tape Allergy Redness of Verified 09/28/18 15:57 Skin latex Allergy Swelling Verified 09/29/18 09:10 of Lip/Tongue/Throat Sulfa (Sulfonamide Allergy Rash Verified 09/29/18 09:10 Antibiotics) Constitutional: Denies: fever Cardiovascular: Denies: chest pain Respiratory: Reports: cough. Denies: dyspnea, sputum production Gastrointestinal: Reports: abdominal pain. Denies: nausea, vomiting, diarrhea, constipation, hematemesis, melena, hematochezia Genitourinary: Reports: other (Dark urine). Denies: urgency, dysuria, frequency, hematuria Neurological: Reports: confusion. Denies: headache, weakness, numbness, paresthesias Past Medical History - Past Medical History Medical history: Reports: arthritis, cancer, coronary artery disease, diabetes, dialysis, GERD, hyperlipidemia, hypertension, myocardial infarction, renal disease, other Surgical history: Reports: appendectomy, cholecystectomy, coronary bypass (CABG), hysterectomy, ureteral stent, other Psychiatric history: Reports: anxiety, depression STAFFING CONSULTANT history: Reports: no STAFFING CONSULTANT history - Social History Smoking Status: Never smoker Smokeless Tobacco Status: No Alcohol use: Reports: none Drug use: Reports: none Physical Exam - General Limitations: no limitations General appearance: alert Course Vital Signs Temperature 98.0 F 10/05/18 20:03 Pulse Rate 73 10/05/18 20:03 Respiratory Rate 18 10/05/18 20:03 Blood Pressure 173/78 10/05/18 20:03 O2 Sat by Pulse Oximetry 100 10/05/18 20:03 Temperature 98.0 F 10/05/18 20:03 Pulse Rate 85 10/05/18 22:15 Respiratory Rate 18 10/05/18 22:15 Blood Pressure 153/62 10/05/18 22:15 O2 Sat by Pulse Oximetry 100 10/05/18 22:15 Oxygen Delivery Oxygen Delivery Room Air Medical Decision Making - Medical Records Medical records reviewed: Yes I reviewed the patient's medical records. - Lab Data Lab results reviewed: Yes I reviewed the patient's lab results. Result diagrams: 10/05/18 20:39 10/05/18 20:39 Lab Results 10/05/18 10/05/18 10/05/18 Range/Units 20:39 20:39 21:57 WBC 7.2 (4.3-11.1) K/mcL RBC 3.63 L (3.82-4.97) M/mcL Hgb 11.1 L (11.5-15.4) g/dL Hct 34.8 L (35.3-44.9) % MCV 95.9 (83.0-100.0) fL MCH 30.6 (28.0-33.3) pg MCHC 31.9 (31.6-35.5) g/dL RDW 14.1 (11.5-14.5) % Plt Count 205 (140-400) K/mcL MPV 10.8 (9.4-12.4) fL Immature Gran % 0.3 (0-4) % Seg Neutrophils % 67.4 % Lymphocytes % 20.3 % Monocytes % 9.2 % Eosinophils % 2.4 % Basophils % 0.4 % Neutrophils # 4.9 (1.6-8.9) K/mcL Lymphocytes # 1.5 (0.6-4.6) K/mcL Monocytes # 0.7 (0.0-1.3) K/mcL Eosinophils # 0.2 (0.0-0.6) K/mcL Basophils # 0.0 (0.0-0.2) K/mcL Sodium 138 (136-145) mEq/L Potassium 4.1 (3.5-5.1) mEq/L Chloride 96 L (98-107) mEq/L Carbon Dioxide 32 H (23-29) mEq/L BUN 52 H (8-23) mg/dL Creatinine 3.68 H (0.60-1.20) mg/dL Est GFR ( Amer) 15 L (> 60) Est GFR (Non-Af Amer) 12 L (> 60) BUN/Creatinine Ratio 14 (6-26) Glucose 249 H (70-105) mg/dL Calculated Osmolality 308 H (280-300) Calcium 8.8 (8.6-10.3) mg/dL Total Bilirubin 0.3 (0.3-1.0) mg/dL Direct Bilirubin 0.0 (0.0-0.2) mg/dL Indirect Bilirubin 0.3 (0.0-1.2) mg/dL AST 20 (13-39) Units/L ALT 19 (7-52) Units/L Alkaline Phosphatase 159 H (34-104) Units/L Serum Total Protein 6.9 (6.4-8.9) g/dL Albumin 3.3 L (3.5-5.7) g/dL Globulin 3.6 H (2.4-3.5) g/dL Albumin/Globulin Ratio 0.9 L (1.1-2.2) Urine Color Yellow (Yellow) Urine Clarity Cloudy A (Clear) Urine pH 8.0 (5.0-8.0) pH Units Ur Specific [place] 1.006 L (1.010-1.025) Urine Protein 100 H (Neg-Trace) mg/dL Urine Glucose (UA) 100 H (Normal) mg/dL Urine Ketones Negative (Negative) mg/dL Urine Blood Large H (Negative) Urine Nitrite Negative (Negative) Urine Bilirubin Negative (Negative) Urine Urobilinogen Normal (Normal) mg/dL Ur Leukocyte Esterase Moderate H (Negative) Urine Microscopic RBC TNTC H (0-3) per hpf Urine Microscopic WBC 50-100 H (0-3) per hpf Ur Squamous Epith Cells Many H (None-Few) per lpf Urine Bacteria None Seen (None-Few) per hpf Hyaline Casts None Seen (None-Few) per lpf Ur Culture Indicated? NO. A (NO) - Radiology Data Radiology results reviewed: Yes I reviewed the patient's radiology results. Abdomen/Pelvis CT 10/05/18 20:12 IMPRESSION: Persistent bladder wall thickening, likely cystitis. D/ / Benjy Glasgow MD / Benjy Glasgow MD Interpreting Provider: Benjy Glasgow MD Chest X-Ray 10/05/18 20:12 IMPRESSION: Unchanged prominence of interstitial lung markings accentuated by the low volume portable technique. Unchanged blunting of the right costophrenic angle. No definite acute disease. No change from the prior study. When the patient is able, a follow-up inspiratory PA and lateral examination the chest is recommended. D/ / Dalton Lovett MD / Dalton Lovett MD Interpreting Provider: Dalton Lovett MD Attestation Statement - Attestation Attestation: I, All Wallace MD, personally evaluated this patient and discussed their management with the resident physician. I reviewed the resident's note and agree with the documented findings, medical decision making, and plan of care. 67-year-old female with end-stage renal disease on hemodialysis presents to the emergency department by ambulance from a local [facility] with a complaint of increased confusion today. Patient is currently on vancomycin for a urinary tract infection. Patient is alert and answers some questions appropriately but obviously is confused. She told me she had her dialysis today but then told me she does not have dialysis on . She has a dressing on the left lower leg with some bleeding from this area and blood on the bed. I ask her what she did turn her leg and she said they did dialysis in her leg. She states she does not know what happened to her leg because they do not tell her anything d ialysis. On examination patient is a well-developed well-nourished elderly female in no acute distress. She is alert but confused. No cyanosis or diaphoresis. Breath sounds are clear and equal bilaterally. Heart regular. Abdomen soft with normal bowel sounds. Nontender to palpation. No pedal edema. Labs reviewed. CT the abdomen and pelvis shows cystitis. No acute abnormality on chest x-ray. The hospitalist, Dr. Coombs, was consulted and accepted admission of the patient.
[2018-10-05 22:12] LABS: Bilirubin,Urine Negative (Negative); Blood,Urine Large (Negative); Clarity,Urine Cloudy (Clear); Color,Urine Yellow (Yellow); Glucose,Urine (UA) 100 mg/dL (Normal); Ketones,Urine Negative (Negative); Leukocyte Esterase,Urine Moderate (Negative); Nitrite,Urine Negative (Negative); Protein,Urine 100 mg/dL (Neg-Trace); Specific Gravity,Urine 1.006 (1.010-1.025); Urobilinogen,Urine Normal (Normal)
[2018-10-05 22:15] LABS: Bacteria,Urine None Seen per hpf (None-Few); Hyaline Casts,Urine None Seen per lpf (None-Few); RBC,Urine TNTC per hpf (0-3); Squamous Epithelial Cell,Urine Many per lpf (None-Few); WBC,Urine 50-100 per hpf (0-3)
[2018-10-06] MEDS ORDERED: Naloxone 0.4 MG/ML INJ IVP PRN (00:34)
[2018-10-06] MEDS ORDERED: D5% in Water 1,000 ML IVC PRN (00:36)
[2018-10-06] MEDS ORDERED: Dextrose Gel 15 GM/37.5 ML TUBE PO PRN ×2 (00:36)
[2018-10-06] MEDS ORDERED: *HR* Dextrose 50 % in Water (Syg) 50 ML SYRINGE IVP PRN (00:36)
--- NOTE | 2018-10-06 00:42 | Internal Med History&Physical ---
<Court Mcintosh - Last Filed: 10/06/18 03:54> Date of Encounter: 10/06/18 Time of Encounter: 00:42 Internal Medicine - H&P: HPI Chief complaint: AMS Admitted From: Long-term Nursing Facility Plans for Post Hospital Care: Transfer Long-Term Facility History of present illness: Ms. Dan is a 67 year old female with past medical history ESRD on dialysis, CAD with CABG, diabetes, hypertension, hyperlipidemia, thyroid disease, lung cancer in remission, anxiety and depression who presents from nursing facility due to altered mental status. Pt appeared confused, and was complaining of abdominal pain, and requested to go the [place] ED to be evaluated. Per ED physician, on initial evaluation, patient complaining of suprapubic tenderness, and was mildly confused, but answering questions appropriately. Noted to have dark urine and cough, but denied chest pain, SOB, nausea, vomiting, diarrhea, dysuria, hematuria. Also denied numbness, tingling of extremities, weakness, slurred speech. Pt had been recently admitted and discharged only 2 days ago due to AMS secondary to UTI and hyperglycemia. Pt was discharged on IV vancomycin for 6 days, and advised to follow up with ID 1 week from discharge. Urine culture grew vancomycin-resistant enterococcus in urine culture, only susceptible to Linezolid. Pt antibiotics were to be switched to Linezolid for 2 weeks. However, pt notes that she has been receiving IV Vancomycin at senior care. Initial vital signs in the ED: T = 98.0, HR = 73, RR = 18, BP = 173/78, O2 = 100 CBC: Within normal limits BMP: BUN/Cr = 52/3.68; GFR = 12 UA: Cloudy, + protein, + glucose, + large blood, + moderate leukocyte esterase, + microscopic RBCs, + microscopic WBCs Chest x-ray: Unchanged prominence of interstitial lung markings, unchanged blunting of right costophrenic angle, no definite acute disease, no change from prior study CT abdomen and pelvis without contrast: Persistent bladder wall thickening likely cystitis EKG: HR = 74, QRS = 106, QT = 436; NSR, regular intervals, no acute ST Changes Patient was given dose of linezolid in the ED along with IV fluids. On my exam, pt resting comfortably at bedside, but seems to be altered, c onfused. AOx2 (to name and place). However, appears to be repeating same thing over and over. Pt allowed me to listen to heart and lungs which were normal, and examine abdomen and did not complain of any tenderness. However, did was not able to give coherent history, and denied all ROS. When I went to revisit room, pt was resting comfortably in bed, no acute distress. Vitals hemodynamically stable, afebrile. Will admit for further workup of cystitis, AMS. Past Med Surg Social Fam HX - Past Medical History Source: old records reviewed Medical history: arthritis, cancer, coronary artery disease, diabetes, dialysis, GERD, hyperlipidemia, hypertension, myocardial infarction, renal disease, other Additional medical history: neuropathy, insomnia Psychiatric history: anxiety, depression - Past Surgical History Surgical History: appendectomy, cholecystectomy, coronary bypass (CABG), hysterectomy, ureteral stent, other Additional surgical history: colonoscopy - egd - tubal ligation - kidney stent - Social History Smoking Status: Never smoker Smokeless Tobacco Status: No Alcohol use: none Drug use: none - Family History Mother Living Status: Hx Family Endocrine Disorder: (DM) Father Adopted: No Hx Family Cardiac Disorders: Yes ("heart troubles") Hx Family Cancer: Yes (Prostate cancer) Hx Family Endocrine Disorder: Yes (DM) Brother Hx Family Cardiac Disorders: Yes (CAD) Hx Family Cancer: Yes (lung cancer) Internal Medicine - H&P: Meds Folic Acid 1 mg PO DAILY 07/10/15 [History] Levothyroxine [Synthroid] 50 mcg PO 199907/10/15 [History] Pantoprazole Sodium [Protonix] 40 mg PO BID 07/10/15 [History] Docusate [Colace] 100 mg PO BID 10/14/16 [History] Albuterol Sulfate [Proair Hfa] 2 puff IH Q4H PRN 03/17/17 [History] Atorvastatin [Lipitor] 40 mg PO HS 03/17/17 [History] Clopidogrel [Plavix] 75 mg PO DAILY 05/09/17 [History] Sucralfate [Carafate] 1 gm PO 0730,1630 05/09/17 [History] Furosemide [Lasix] 20 mg PO DAILY 03/01/18 [History] Amitriptyline [Elavil] 25 mg PO HS 03/26/18 [History] Ergocalciferol (VITAMIN D2) [Drisdol] 50,000 unit PO MO 03/26/18 [History] Insulin DETEMIR [Levemir] 12 unit SQ 0800 03/26/18 [History] Tamsulosin [Flomax] 0.4 mg PO DAILY 03/26/18 [History] Zolpidem [Ambien] 5 mg PO HS 03/26/18 [History] Lactobacillus Combination No.8 [Adult Probiotic] 1 cap PO DAILY 05/04/18 [History] Pramipexole Di-HCl [Pramipexole Dihydrochloride] 0.125 mg PO HS 05/04/18 [History] Promethazine [Phenergan] 25 mg PO TID PRN 05/04/18 [History] Psyllium Husk [Daily Fiber] 0.52 gm PO DAILY 05/04/18 [History] SUMAtriptan Succinate [Imitrex] 6 mg SQ BID PRN 05/04/18 [History] Baclofen [Lioresal] 10 mg PO TID PRN 07/31/18 [History] Lisinopril [Zestril] 20 mg PO SUTUTHSA 07/31/18 [History] Mirtazapine [Remeron] 15 mg PO HS 07/31/18 [History] Insulin DETEMIR [Levemir Flextouch] 14 unit SQ 2000 08/06/18 [History] Aspirin Enteric Coated [Aspirin EC] 81 mg PO DAILY 09/04/18 [History] Calcium Carbonate [Calcium] 500 mg PO BID 09/04/18 [History] Folic Acid/Vit Bcomp,C [Renal Vitamin Tablet] 0.8 mg PO DAILY 09/04/18 [History] Metoprolol XL (24 HR) Succ [Toprol Xl] 12.5 mg PO SUTUTHSA 09/04/18 [History] Midodrine [ProAmatine] 5 mg PO MOWEFR 09/04/18 [History] Oxybutynin Chloride [Ditropan Xl] 10 mg PO DAILY 09/04/18 [History] OxyCODONE/APAP 5/325 [Percocet 5/325 MG] 1 tab PO TID PRN 3 Days #9 tablet 09/06/18 [Rx] Ciprofloxacin/Dex *EAR* Susp [Ciprodex *EAR* Susp] 4 drop LEFT EAR BID 5 Days #1 bottle 10/02/18 [Rx] Vancomycin [Vancocin] 1 each IVPB AD PRN 6 Days #6 vial 10/02/18 [Rx] Allergy/AdvReac Type Severity Reaction Status Date / Time adhesive tape Allergy Redness of Verified 09/28/18 15:57 Skin latex Allergy Swelling Verified 09/29/18 09:10 of Lip/Tongue/Throat Sulfa (Sulfonamide Allergy Rash Verified 09/29/18 09:10 Antibiotics) ROS unobtainable: due to mental status All Systems PM: A 10-system review of systems was performed and is negative for pertinent findings except as documented above in the HPI. - Constitutional Vitals: Temp Pulse Resp BP Pulse Ox 99.0 F 84 17 166/73 93 10/05/18 23:53 10/05/18 23:53 10/05/18 23:53 10/05/18 23:53 10/05/18 23:53 General appearance: Present: disheveled, A&O X 2, mild distress Exam: GEN: AOx2; no acute distress; confused, altered mentation, repeating same phrase; no pain or discomfort, but agitated HEENT: Atraumatic, normocephalic, PERRLA, EOMI; mucous membranes moist CARDIO: RRR, no murmurs, rubs, gallops RESP: CTAB, no wheezes, rhonchi, rales ABD: Soft, non-tender, non-distended, bowel sounds present NEURO: CN 2-12 intact; no focal deficits Internal Med - H&P Results - Labs CBC & Chem 7: 10/05/18 20:39 10/05/18 20:39 Labs: Short CBC 10/05/18 Range/Units 20:39 WBC 7.2 (4.3-11.1) K/mcL Hgb 11.1 L (11.5-15.4) g/dL Hct 34.8 L (35.3-44.9) % Plt Count 205 (140-400) K/mcL Neutrophils # 4.9 (1.6-8.9) K/mcL BMP 10/05/18 20:39 Sodium 138 Potassium 4.1 Chloride 96 L Carbon Dioxide 32 H BUN 52 H Creatinine 3.68 H Glucose 249 H Calcium 8.8 Liver Function 10/05/18 Range/Units 20:39 Total Bilirubin 0.3 (0.3-1.0) mg/dL Direct Bilirubin 0.0 (0.0-0.2) mg/dL AST 20 (13-39) Units/L ALT 19 (7-52) Units/L Alkaline Phosphatase 159 H (34-104) Units/L Albumin 3.3 L (3.5-5.7) g/dL Urine 10/05/18 Range/Units 21:57 Urine Color Yellow (Yellow) Urine Clarity Cloudy A (Clear) Urine pH 8.0 (5.0-8.0) pH Units Ur Specific [place] 1.006 L (1.010-1.025) Urine Protein 100 H (Neg-Trace) mg/dL Urine Glucose (UA) 100 H (Normal) mg/dL - Impressions ITS Impressions Abdomen/Pelvis CT 10/05/18 20:12 IMPRESSION: Persistent bladder wall thickening, likely cystitis. D/ / Benjy Glasgow MD / Benjy Glasgow MD Interpreting Provider: Benjy Glasgow MD Chest X-Ray 10/05/18 20:12 IMPRESSION: Unchanged prominence of interstitial lung markings accentuated by the low volume portable technique. Unchanged blunting of the right costophrenic angle. No definite acute disease. No change from the prior study. When the patient is able, a follow-up inspiratory PA and lateral examination the chest is recommended. D/ / Dalton Lovett MD / Dalton Lovett MD Interpreting Provider: Dalton Lovett MD - Assessment and plan (1) Altered mental status Current Visit: Yes Status: Acute Assessment and plan: Ms. Dan is a 67 year old female with past medical history ESRD on dialysis, CAD with CABG, diabetes, hypertension, hyperlipidemia, thyroid disease, lung cancer in remission, anxiety and depression who presents from nursing facility due to altered mental status. Associated with cough, confusion, suprapubic abdominal pain Discharged recently with UTI - culture grew VRE; only susceptible to linezolid CBC: Within normal limits BMP: BUN/Cr = 52/3.68; GFR = 12; Glucose = 249 UA: Cloudy, + protein, + glucose, + large blood, + moderate leukocyte esterase, + microscopic RBCs, + microscopic WBCs Chest x-ray: Unchanged prominence of interstitial lung markings, unchanged blunting of right costophrenic angle, no definite acute disease, no change from prior study CT abdomen and pelvis without contrast: Persistent bladder wall thickening likely cystitis EKG: HR = 74, QRS = 106, QT = 436; NSR, regular intervals, no acute ST Changes S/p Linezolid and IVF PLAN: AMS likely secondary to UTI, cystitis; no evidence of electrolyte abnormalities; no dyspnea, chest pain; Consider polypharmacy Monitor vitals Monitor for signs of clinical deterioration Follow up urine culture; s/p 1 dose linezolid - cont linezolid; consider ID consult for further recommendations CBC, BMP, TSH in the AM Qualifiers: Altered mental status type: unspecified Qualified Code(s): R41.82 - Altered mental status, unspecified (2) UTI (urinary tract infection) Current Visit: Yes Status: Acute Assessment and plan: Pt had been recently admitted and discharged only 2 days ago due to AMS secondary to UTI and hyperglycemia. Pt was discharged on IV vancomycin for 6 days, and advised to follow up with ID 1 week from discharge. Urine culture grew vancomycin-resistant enterococcus in urine culture, only susceptible to Linezolid. Pt antibiotics were to be switched to Linezolid for 2 weeks. However, pt notes that she has been receiving IV Vancomycin at senior care. UA: Cloudy, + protein, + glucose, + large blood, + moderate leukocyte esterase, + microscopic RBCs, + microscopic WBCs Previous culture grew VRE - only susceptible to Linezolid Currently afebrile, no leukocytosis S/p Linezolid x 1, and IVF in the ED PLAN: Follow urine culture Consider cont Linezolid; may need to re-consult ID for further recommendations Monitor vitals Monitor for fevers CBC in the AM Qualifiers: Urinary tract infection type: acute cystitis Hematuria presence: with hematuria Qualified Code(s): N30.01 - Acute cystitis with hematuria (3) CAD (coronary artery disease) Current Visit: No Status: Chronic Assessment and plan: Hx CAD with CABG PLAN: Cont statin, aspirin, plavix, toprol, ACEI Qualifiers: Coronary Disease-Associated Artery/Lesion type: unspecified vessel or lesion type [place] vs. 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 use Diabetes mellitus complication status: with kidney complications Diabetes mellitus complication detail: with chronic kidney disease Chronic kidney disease stage: on chronic dialysis Qualified Code(s): E11.22 - Type 2 diabetes mellitus with diabetic chronic kidney disease; N18.6 - End stage renal disease; Z79.4 - residential (current) use of insulin; Z99.2 - Dependence on renal dialysis (5) ESRD (end stage renal disease) on dialysis Current Visit: No Status: Chronic Assessment and plan: ESRD on HD BUN/Cr = 52/3.68 GFR = 12 PLAN: Fluid restriction Avoid nephrotoxic meds Nephrology recommendations appreciated (6) GERD (gastroesophageal reflux disease) Current Visit: No Status: Chronic Assessment and plan: Cont Protonix Qualifiers: Esophagitis presence: esophagitis presence not specified Qualified Code(s): K21.9 - Gastro-esophageal reflux disease without esophagitis (7) Hypertension Current Visit: No Status: Chronic Assessment and plan: Monitor vitals Cont ACEIs, BB; Hold diuretic for now Hydralazine PRN Qualifiers: Hypertension type: unspecified Qualified Code(s): I10 - Essential (primary) hypertension (8) Hypothyroidism Current Visit: No Status: Chronic Assessment and plan: Hx Hypothyroidism PLAN: Follow up TSH Cont Synthroid Qualifiers: Hypothyroidism type: unspecified Qualified Code(s): E03.9 - Hypothyroidism, unspecified (9) Lung cancer Current Visit: No Status: Chronic Assessment and plan: Chronic In Remission Qualifiers: Laterality: right Lung location: unspecified part of lung Qualified Code(s): C34.91 - Malignant neoplasm of unspecified part of right bronchus or lung (10) Polypharmacy Current Visit: Yes Status: Acute (11) DVT prophylaxis Current Visit: Yes Status: Acute Assessment and plan: Heparin SQ BID - Time Spent With Patient Total time spent is greater than 50% in coordination of care (as documented) at patient's floor/unit and/or counseling patient: less than 15 minutes <Haylie Coombs - Last Filed: 10/06/18 06:46> Date of Encounter: 10/06/18 Internal Medicine - H&P: HPI History of present illness: Ms. Dan is a 67 year old female All Systems PM: A 10-system review of systems was performed and is negative for pertinent findings except as documented above in the HPI. - Constitutional Vitals: Temp Pulse Resp BP Pulse Ox 98.9 F 86 16 156/58 93 10/06/18 04:21 10/06/18 04:21 10/06/18 04:21 10/06/18 04:21 10/06/18 04:21 Internal Med - H&P Results - Labs CBC & Chem 7: 10/06/18 04:21 10/06/18 04:21 Labs: Short CBC 10/05/18 10/06/18 Range/Units 20:39 04:21 WBC 7.2 9.0 (4.3-11.1) K/mcL Hgb 11.1 L 10.5 L (11.5-15.4) g/dL Hct 34.8 L 33.4 L (35.3-44.9) % Plt Count 205 191 (140-400) K/mcL Neutrophils # 4.9 6.8 (1.6-8.9) K/mcL BMP 10/05/18 10/06/18 20:39 04:21 Sodium 138 138 Potassium 4.1 4.3 Chloride 96 L 100 Carbon Dioxide 32 H 26 BUN 52 H 53 H Creatinine 3.68 H 3.60 H Glucose 249 H 210 H Calcium 8.8 8.3 L Liver Function 10/05/18 Range/Units 20:39 Total Bilirubin 0.3 (0.3-1.0) mg/dL Direct Bilirubin 0.0 (0.0-0.2) mg/dL AST 20 (13-39) Units/L ALT 19 (7-52) Units/L Alkaline Phosphatase 159 H (34-104) Units/L Albumin 3.3 L (3.5-5.7) g/dL Urine 10/05/18 Range/Units 21:57 Urine Color Yellow (Yellow) Urine Clarity Cloudy A (Clear) Urine pH 8.0 (5.0-8.0) pH Units Ur Specific [place] 1.006 L (1.010-1.025) Urine Protein 100 H (Neg-Trace) mg/dL Urine Glucose (UA) 100 H (Normal) mg/dL - Impressions ITS Impressions Abdomen/Pelvis CT 10/05/18 20:12 IMPRESSION: Persistent bladder wall thickening, likely cystitis. D/ / Benjy Glasgow MD / Benjy Glasgow MD Interpreting Provider: Benjy Glasgow MD Chest X-Ray 10/05/18 20:12 IMPRESSION: Unchanged prominence of interstitial lung markings accentuated by the low volume portable technique. Unchanged blunting of the right costophrenic angle. No definite acute disease. No change from the prior study. When the patient is able, a follow-up inspiratory PA and lateral examination the chest is recommended. D/ / Dalton Lovett MD / Dalton Lovett MD Interpreting Provider: Dalton Lovett MD - Time Spent With Patient Total time spent is greater than 50% in coordination of care (as documented) at patient's floor/unit and/or counseling patient: - Attending Attestation I performed a history and physical examination of the patient and discussed her management with the resident. I reviewed the resident's note and agree with their plan of care.
[2018-10-06 04:46] LABS: Basophils % 0.3 %; Eosinophils # 0.2 K/mcL (0.0-0.6); Eosinophils % 1.7 %; Hematocrit 33.4 % (35.3-44.9); Hemoglobin 10.5 g/dL (11.5-15.4); Immature Granulocytes % 0.3 % (0-4); Lymphocytes # 1.2 K/mcL (0.6-4.6); Lymphocytes % 12.8 %; Mean Corpuscular HGB Conc 31.4 g/dL (31.6-35.5); Mean Corpuscular Volume 95.4 fL (83.0-100.0); Monocytes # 0.8 K/mcL (0.0-1.3); Monocytes % 9.2 %; Neutrophils # 6.8 K/mcL (1.6-8.9); Platelet Count 191 K/mcL (140-400); Red Cell Distribution Width 13.9 % (11.5-14.5); Segmented Neutrophils % 75.7 %
[2018-10-06 05:04] LABS: Calcium 8.3 mg/dL (8.6-10.3); Potassium 4.3 mEq/L (3.5-5.1)
[2018-10-06] MEDS: *HR* Heparin 5,000 UNIT/ML VIAL SQ SCH ×2 (05:05→17:57)
[2018-10-06 05:24] LABS: Thyroid Stimulating Hormone 1.073 mcIU/mL (0.340-5.600)
[2018-10-06] MEDS ORDERED: Haloperidol Lactate 5 MG/ML VIAL IVP ONE (05:40)
[2018-10-06] MEDS ORDERED: 0.9 % Sodium Chloride 2,000 ML ONE (07:23)
[2018-10-06] MEDS ORDERED: 0.9 % Sodium Chloride 250 ML IVC PRN (07:32)
[2018-10-06] MEDS ORDERED: 0.9 % Sodium Chloride 1,000 ML PRIME SCH (07:45)
[2018-10-06] MEDS: Insulin LISPRO 300 UNITS/3 ML VIAL SQ SCH ×4 (08:37→21:32)
--- NOTE | 2018-10-06 08:55 | Electrocardiograph Report ---
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
--- NOTE | 2018-10-06 09:31 | Nephrology Consult Note ---
Addendum entered and electronically signed by Juan Francisco Diehl MD 10/06/18 19:02: I examined this patient and my medical decision-making was reviewed with the Resident Physician. I agree with the documented findings, disposition and treatment plan as described except to the extent set forth below. Patient was unable to participate in history secondary to her mental status. Soft restraints and a sitter ordered for dialysis. I did check on the patient more than once during the dialysis session. Continue with dialysis on a Tuesday and as needed schedule. Original Note: Date of Encounter: 10/06/18 Time of Encounter: 09:29 Assessment and Plan (1) ESRD (end stage renal disease) on dialysis Current Visit: Yes Status: Acute - Patient has a known history of ESRD on HD MWF - BUN was 52 on arrival, creatinine 3.68 - Serum creatinine today is 3.60, GFR is 13 - Fluid restriction, strict Is and Os - Renally dose medications - Avoid nephrotoxins - Continue dialysis (2) UTI (urinary tract infection) Current Visit: Yes Status: Acute - Patient presented with altered mental status likely secondary to UTI - Recently admitted/discharged for UTI secondary to VRE - Patient was supposed to start Zyvox for 2 weeks, but only received vancomycin in the custodial - Patient was given 1 dose of Zyvox in the ED - Urinalysis demonstrated: Large blood, moderate leukocyte esterase, WBCs 50-100 - Continue Zyvox - Management per primary team Qualifiers: Qualified Code(s): N39.0 - Urinary tract infection, site not specified; R31.9 - Hematuria, unspecified (3) CAD (coronary artery disease) Current Visit: No Status: Chronic - Known history of CAD S/P CABG - Management per primary team Qualifiers: Coronary Disease-Associated Artery/Lesion type: unspecified vessel or lesion type [place] vs. 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 senior living use Diabetes mellitus complication status: with kidney complications Diabetes mellitus complication detail: with chronic kidney disease Chronic kidney disease stage: on chronic dialysis Qualified Code(s): E11.22 - Type 2 diabetes mellitus with diabetic chronic kidney disease; N18.6 - End stage renal disease; Z79.4 - alf (current) use of insulin; Z99.2 - Dependence on renal dialysis (5) Hypertension Current Visit: No Status: Chronic - Management per primary team Qualifiers: Hypertension type: unspecified Qualified Code(s): I10 - Essential (primary) hypertension History of Present Illness - History of Present Illness Alaina Dan is a 67-year-old female with a PMH of ESRD on dialysis, CAD s/p C ABG, DM, HTN, HLD, thyroid disease, lung cancer in remission who presented to [facility] ED on 10/06/18 with AMS. Patient appeared confused, and complaint of abdominal pain. Patient complained of suprapubic tenderness, and was noted to have dark urine and a cough. She was recently discharged 2 days ago due to altered mental status secondary to UTI and hyperglycemia. She was discharged on IV vancomycin for 6 days and was advised to follow-up with infectious disease one week from discharge. Urine culture was obtained, grew VRE sensitive to Zyvox. Patients antibiotics were supposed to be switched to Zyvox for 2 weeks, but the patient notes that she had only been receiving IV vancomycin at the [facility] home. Vital signs on arrival were significant for an elevated blood pressure 173/78. All other vitals were within normal limits. Patients creatinine was noted to be 3.68, GFR of 12. Urinalysis showed large amount of blood, moderate leukocyte esterase, white blood cells, protein, glucose, and a large amount of blood. CXR demonstrated no acute changes. CT abdomen/pelvis demonstrated persistent bladder wall thickening with likely cystitis. She was given 1 dose of Zyvox in the ED with IV fluids. Patient was seen and examined at bedside; she appears very confused, and is unable to answer any questions. She is non-conversant, and appears slightly anxious. ROS unobtainable at this time. Past Med Surg Social Fam HX - Past Medical History Medical history: arthritis, cancer, coronary artery disease, diabetes, dialysis, GERD, hyperlipidemia, hypertension, myocardial infarction, renal disease, other Additional medical history: neuropathy, insomnia Psychiatric history: anxiety, depression - Past Surgical History Surgical History: appendectomy, cholecystectomy, coronary bypass (CABG), hysterectomy, ureteral stent, other Additional surgical history: colonoscopy - egd - tubal ligation - kidney stent - Social History Smoking Status: Never smoker Smokeless Tobacco Status: No Alcohol use: none Drug use: none - Family History Mother Living Status: Hx Family Endocrine Disorder: (DM) Father Adopted: No Hx Family Cardiac Disorders: Yes ("heart troubles") Hx Family Cancer: Yes (Prostate cancer) Hx Family Endocrine Disorder: Yes (DM) Brother Hx Family Cardiac Disorders: Yes (CAD) Hx Family Cancer: Yes (lung cancer) Medications and Allergies Folic Acid 1 mg PO DAILY 07/10/15 [History] Levothyroxine [Synthroid] 50 mcg PO 199907/10/15 [History] Pantoprazole Sodium [Protonix] 40 mg PO BID 07/10/15 [History] Docusate [Colace] 100 mg PO BID 10/14/16 [History] Albuterol Sulfate [Proair Hfa] 2 puff IH Q4H PRN 03/17/17 [History] Atorvastatin [Lipitor] 40 mg PO HS 03/17/17 [History] Clopidogrel [Plavix] 75 mg PO DAILY 05/09/17 [History] Sucralfate [Carafate] 1 gm PO 0730,1630 05/09/17 [History] Furosemide [Lasix] 20 mg PO DAILY 03/01/18 [History] Amitriptyline [Elavil] 25 mg PO HS 03/26/18 [History] Ergocalciferol (VITAMIN D2) [Drisdol] 50,000 unit PO MO 03/26/18 [History] Insulin DETEMIR [Levemir] 12 unit SQ 0800 03/26/18 [History] Tamsulosin [Flomax] 0.4 mg PO DAILY 03/26/18 [History] Zolpidem [Ambien] 5 mg PO HS 03/26/18 [History] Lactobacillus Combination No.8 [Adult Probiotic] 1 cap PO DAILY 05/04/18 [History] Pramipexole Di-HCl [Pramipexole Dihydrochloride] 0.125 mg PO HS 05/04/18 [History] Promethazine [Phenergan] 25 mg PO TID PRN 05/04/18 [History] Psyllium Husk [Daily Fiber] 0.52 gm PO DAILY PRN 05/04/18 [History] SUMAtriptan Succinate [Imitrex] 6 mg SQ BID PRN 05/04/18 [History] Baclofen [Lioresal] 10 mg PO TID 07/31/18 [History] Lisinopril [Zestril] 20 mg PO SUTUTHSA 07/31/18 [History] Mirtazapine [Remeron] 15 mg PO HS 07/31/18 [History] Insulin DETEMIR [Levemir Flextouch] 14 unit SQ 2000 08/06/18 [History] Aspirin Enteric Coated [Aspirin EC] 81 mg PO DAILY 09/04/18 [History] Calcium Carbonate [Calcium] 500 mg PO BID 09/04/18 [History] Folic Acid/Vit Bcomp,C [Renal Vitamin Tablet] 0.8 mg PO DAILY 09/04/18 [History] Metoprolol XL (24 HR) Succ [Toprol Xl] 12.5 mg PO SUTUTHSA 09/04/18 [History] Midodrine [ProAmatine] 5 mg PO MOWEFR 09/04/18 [History] Oxybutynin Chloride [Ditropan Xl] 10 mg PO DAILY 09/04/18 [History] OxyCODONE/APAP 5/325 [Percocet 5/325 MG] 1 tab PO TID PRN 3 Days #9 tablet 09/06/18 [Rx] Ciprofloxacin/Dex *EAR* Susp [Ciprodex *EAR* Susp] 4 drop LEFT EAR BID 5 Days #1 bottle 10/02/18 [Rx] Vancomycin [Vancocin] 1 each IVPB AD PRN 6 Days #6 vial 10/02/18 [Rx] Allergy/AdvReac Type Severity Reaction Status Date / Time adhesive tape Allergy Redness of Verified 09/28/18 15:57 Skin latex Allergy Swelling Verified 09/29/18 09:10 of Lip/Tongue/Throat Sulfa (Sulfonamide Allergy Rash Verified 09/29/18 09:10 Antibiotics) Review of Systems ROS unobtainable: due to mental status Exam - Vital Signs Vital signs: Initial Vital Signs Temp Pulse Resp BP Pulse Ox 98.0 F 73 18 173/78 100 10/05/18 20:03 10/05/18 20:03 10/05/18 20:03 10/05/18 20:03 10/05/18 20:03 Vital Signs - Last 8 Hours Temp Pulse Resp BP Pulse Ox 10/06/18 07:59 98.2 F 73 16 159/67 99 10/06/18 04:21 98.9 F 86 16 156/58 93 Intake and Output 10/05/18 10/06/18 10/06/18 23:59 07:59 15:59 Intake Total 800 / 800 0 / 0 Balance 800 / 800 0 / 0 Intake: IV Fluids 800 / 800 0.9 % Sodium Chloride 500 ML @ 500 / 500 999 mls/hr IVC .Q31M ONE Rx#: [id number] Zyvox Premix 600mg/300mL 600 mg 300 / 300 In 300 ml @ 150 mls/hr IVPB ONCE ONE Rx#:[id number] Oral 0 / 0 Other: Meal Breakfast Percent of Meal Consumed 0% Weight 73.6 kg Blood Glucose* 197 - General Appearance Exam: General: Appears confused Head: atraumatic, normocephalic Eye: PERRL, EOMI, conjuntiva pink, sclera anicteric Neck: Supple, trachea midline; No lymphadenopathy Respiratory: Shortened inspiratory phase Cardiovascular: RRR, +S1, +S2; no murmurs, rubs, gallops Abdomen: Soft, nontender Extremities: No clubbing, cyanosis, or edema Psychiatric: Appears anxious Skin: Dry, intact Results - Lab Results 10/06/18 04:21 10/06/18 04:21 Most recent lab results Calcium 8.3 mg/dL (8.6-10.3) L 10/06/18 04:21 Consult Discharge Plan - Plan Referrals: NONE,PCP [Primary Care Provider] -
--- NOTE | 2018-10-06 09:46 | Internal Med Progress Note ---
<Vasyl Beckford - Last Filed: 10/06/18 13:27> Hospitalist Progress Note - Encounter Date of Encounter: 10/06/18 Time of Encounter: 10:10 - Subjective Interval History: Patient seen and evaluated in the dialysis unit; currently undergoing HD as routine MWF. Patient is vocal alert to name only; answers few questions but altered. [address] ROS limited in setting of altered status, not in pain. - Exam Vitals: Temp Pulse Resp BP Pulse Ox 98.2 F 73 16 159/67 99 10/06/18 07:59 10/06/18 07:59 10/06/18 07:59 10/06/18 07:59 10/06/18 07:59 Exam: GEN: AOx1 (to name); no acute distress; confused, altered mentation HEENT: Atraumatic, normocephalic, EOMI; mucous membranes moist CARDIO: RRR, no murmurs, rubs, gallops RESP: CTAB, no wheezes, rhonchi, rales ABD: Soft, non-tender, non-distended, bowel sounds present NEURO: no slurring of speech, no facial asymmetry, normal muscle tone EXT: AV fistula access on R; presence of 2 point restraints - Assessment and Plan (1) Altered mental status Current Visit: Yes Status: Acute Assessment and Plan: (1) Altered mental status Current Visit: Yes Status: Acute Assessment and plan: Discharged recently with UTI - culture grew VRE; only susceptible to linezolid CBC: Within normal limits UA: Cloudy, + protein, + glucose, + large blood, + moderate leukocyte esterase, + microscopic RBCs, + microscopic WBCs Chest x-ray: Unchanged prominence of interstitial lung markings, unchanged blunting of right costophrenic angle, no definite acute disease, no change from prior study CT abdomen and pelvis without contrast: Persistent bladder wall thickening likely cystitis EKG: HR = 74, QRS = 106, QT = 436; NSR, regular intervals, no acute ST Changes S/p Linezolid and IVF PLAN: AMS likely secondary to UTI, cystitis; no evidence of electrolyte abnormalities; no dyspnea, chest pain Monitor vitals Monitor for signs of clinical deterioration Follow up urine culture; s/p 1 dose linezolid - cont linezolid; consider ID consult for further recommendations PT Euthyroid AM TSH Polypharmacy but no Be[place] list meds identified in med rec contributing Qualifiers: Altered mental status type: unspecified Qualified Code(s): R41.82 - Altered mental status, unspecified (2) UTI (urinary tract infection) Current Visit: Yes Status: Acute Assessment and plan: Pt had been recently admitted and discharged only 2 days ago due to AMS second abhishek to UTI and hyperglycemia. Pt was discharged on IV vancomycin for 6 days, and advised to follow up with ID 1 week from discharge. Urine culture grew vancomycin-resistant enterococcus in urine culture, only susceptible to Linezolid. Pt antibiotics were to be switched to Linezolid for 2 weeks. Linezolid Rx was sent to snf, though patient was receiving Vancomycin instead (random vanc level today shows 11) UA: Cloudy, + protein, + glucose, + large blood, + moderate leukocyte esterase, + microscopic RBCs, + microscopic WBCs Previous culture grew VRE - only susceptible to Linezolid Currently afebrile, no leukocytosis S/p Linezolid x 1, and IVF in the ED PLAN: Follow urine culture Continuing Linezolid Monitor vitals Qualifiers: Urinary tract infection type: acute cystitis Hematuria presence: with hematuria Qualified Code(s): N30.01 - Acute cystitis with hematuria (3) CAD (coronary artery disease) Current Visit: No Status: Chronic Assessment and plan: Hx CAD with CABG PLAN: Cont statin, aspirin, plavix, toprol, ACEI Qualifiers: Coronary Disease-Associated Artery/Lesion type: unspecified vessel or lesion type [place] vs. transplanted heart: unspecified whether [place] or transplanted heart Associated angina: angina presence unspecified Qualified Code(s): I25.10 - Atherosclerotic heart disease of [place] coronary artery without angina pectoris (4) Diabetes mellitus Current Visit: No Status: Chronic Assessment and plan: Insulin Sliding Scale Accuchecks TIDAC Diabetic Diet Qualifiers: Diabetes mellitus type: type 2 Diabetes mellitus long term care pharmacist insulin use: with long term care pharmacist use Diabetes mellitus complication status: with kidney complications Diabetes mellitus complication detail: with chronic kidney disease Chronic kidney disease stage: on chronic dialysis Qualified Code(s): E11.22 - Type 2 diabetes mellitus with diabetic chronic kidney disease; N18.6 - End stage renal disease; 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; Z99.2 - Dependence on renal dialysis (5) ESRD (end stage renal disease) on dialysis Current Visit: No Status: Chronic Assessment and plan: ESRD on HD MWF Access via brachial-cephalic AV fistula R BUN/Cr = 53/3.60 pre-HD K 4.3 PLAN: Nephrology following, appreciate recommendations (6) GERD (gastroesophageal reflux disease) Current Visit: No Status: Chronic Assessment and plan: Cont Protonix Qualifiers: Esophagitis presence: esophagitis presence not specified Qualified Code(s): K21.9 - Gastro-esophageal reflux disease without esophagitis (7) Hypertension Current Visit: No Status: Chronic Assessment and plan: Monitor vitals; normotensive Cont ACEIs, BB; Lasix held Hydralazine PRN Qualifiers: Hypertension type: unspecified Qualified Code(s): I10 - Essential (primary) hypertension (8) Hypothyroidism Current Visit: No Status: Chronic Assessment and plan: Hx Hypothyroidism PLAN: TSH - patient is euthyroid at current dose; TSH of 1.073 Cont Synthroid Qualifiers: Hypothyroidism type: unspecified Qualified Code(s): E03.9 - Hypothyroidism, unspecified (9) Lung cancer Current Visit: No Status: Chronic Assessment and plan: Chronic In Remission Qualifiers: Laterality: right Lung location: unspecified part of lung Qualified Code(s): C34.91 - Malignant neoplasm of unspecified part of right bronchus or lung (10) Polypharmacy Current Visit: Yes Status: Acute (11) DVT prophylaxis Current Visit: Yes Status: Acute Assessment and plan: Heparin SQ BID - Time Spent with Patient Total time spent is greater than 50% in coordination of care (as documented) at patient's floor/unit and/or counseling patient: Internal Medicine: Result - Labs CBC & Chem 7: 10/06/18 04:21 10/06/18 04:21 Labs: Short CBC 10/05/18 10/06/18 Range/Units 20:39 04:21 WBC 7.2 9.0 (4.3-11.1) K/mcL Hgb 11.1 L 10.5 L (11.5-15.4) g/dL Hct 34.8 L 33.4 L (35.3-44.9) % Plt Count 205 191 (140-400) K/mcL Neutrophils # 4.9 6.8 (1.6-8.9) K/mcL BMP 10/05/18 10/06/18 20:39 04:21 Sodium 138 138 Potassium 4.1 4.3 Chloride 96 L 100 Carbon Dioxide 32 H 26 BUN 52 H 53 H Creatinine 3.68 H 3.60 H Glucose 249 H 210 H Calcium 8.8 8.3 L Liver Function 10/05/18 Range/Units 20:39 Total Bilirubin 0.3 (0.3-1.0) mg/dL Direct Bilirubin 0.0 (0.0-0.2) mg/dL AST 20 (13-39) Units/L ALT 19 (7-52) Units/L Alkaline Phosphatase 159 H (34-104) Units/L Albumin 3.3 L (3.5-5.7) g/dL Urine 10/05/18 Range/Units 21:57 Urine Color Yellow (Yellow) Urine Clarity Cloudy A (Clear) Urine pH 8.0 (5.0-8.0) pH Units Ur Specific [place] 1.006 L (1.010-1.025) Urine Protein 100 H (Neg-Trace) mg/dL Urine Glucose (UA) 100 H (Normal) mg/dL - Impressions Impressions Abdomen/Pelvis CT 10/05/18 20:12 IMPRESSION: Persistent bladder wall thickening, likely cystitis. D/ / Benjy Glasgow MD / Benjy Glasgow MD Interpreting Provider: Benjy Glasgow MD Chest X-Ray 10/05/18 20:12 IMPRESSION: Unchanged prominence of interstitial lung markings accentuated by the low volume portable technique. Unchanged blunting of the right costophrenic angle. No definite acute disease. No change from the prior study. When the patient is able, a follow-up inspiratory PA and lateral examination the chest is recommended. D/ / Dalton Lovett MD / Dalton Lovett MD Interpreting Provider: Dalton Lovett MD Consult Discharge Plan - Plan Referrals: NONE,PCP [Primary Care Provider] - <Neal Barrett - Last Filed: 10/06/18 15:01> Hospitalist Progress Note - Encounter Date of Encounter: 10/06/18 - Exam Vitals: Temp Pulse Resp BP Pulse Ox 99.2 F 73 18 188/62 99 10/06/18 13:15 10/06/18 07:59 10/06/18 13:15 10/06/18 13:15 10/06/18 07:59 - Assessment and Plan (1) Diabetes mellitus Current Visit: No Status: Chronic (2) CAD (coronary artery disease) Current Visit: No Status: Chronic (3) Hypertension Current Visit: No Status: Chronic (4) UTI (urinary tract infection) Current Visit: Yes Status: Acute (5) ESRD (end stage renal disease) on dialysis Current Visit: Yes Status: Acute - Time Spent with Patient Total time spent is greater than 50% in coordination of care (as documented) at patient's floor/unit and/or counseling patient: Internal Medicine: Result - Labs CBC & Chem 7: 10/06/18 04:21 10/06/18 04:21 Labs: Short CBC 10/05/18 10/06/18 Range/Units 20:39 04:21 WBC 7.2 9.0 (4.3-11.1) K/mcL Hgb 11.1 L 10.5 L (11.5-15.4) g/dL Hct 34.8 L 33.4 L (35.3-44.9) % Plt Count 205 191 (140-400) K/mcL Neutrophils # 4.9 6.8 (1.6-8.9) K/mcL BMP 10/05/18 10/06/18 20:39 04:21 Sodium 138 138 Potassium 4.1 4.3 Chloride 96 L 100 Carbon Dioxide 32 H 26 BUN 52 H 53 H Creatinine 3.68 H 3.60 H Glucose 249 H 210 H Calcium 8.8 8.3 L Liver Function 10/05/18 Range/Units 20:39 Total Bilirubin 0.3 (0.3-1.0) mg/dL Direct Bilirubin 0.0 (0.0-0.2) mg/dL AST 20 (13-39) Units/L ALT 19 (7-52) Units/L Alkaline Phosphatase 159 H (34-104) Units/L Albumin 3.3 L (3.5-5.7) g/dL Urine 10/05/18 Range/Units 21:57 Urine Color Yellow (Yellow) Urine Clarity Cloudy A (Clear) Urine pH 8.0 (5.0-8.0) pH Units Ur Specific [place] 1.006 L (1.010-1.025) Urine Protein 100 H (Neg-Trace) mg/dL Urine Glucose (UA) 100 H (Normal) mg/dL - Impressions Impressions Abdomen/Pelvis CT 10/05/18 20:12 IMPRESSION: Persistent bladder wall thickening, likely cystitis. D/ / Benjy Glasgow MD / Benjy Glasgow MD Interpreting Provider: Benjy Glasgow MD Chest X-Ray 10/05/18 20:12 IMPRESSION: Unchanged prominence of interstitial lung markings accentuated by the low volume portable technique. Unchanged blunting of the right costophrenic angle. No definite acute disease. No change from the prior study. When the patient is able, a follow-up inspiratory PA and lateral examination the chest is recommended. D/ / Dalton Lovett MD / Dalton Lovett MD Interpreting Provider: Dalton Lovett MD - Attending Attestation I examined this patient and my medical decision-making was reviewed with the Resident Physician on 10/06/18. I agree with the documented findings, disposition and treatment plan as described except to the extent set forth below. Ms Dan is currently admitted for acute encephalopathy presumed related to UTI. She recently was diagnoses with VRE UTI. She is now on Zyvox. She remains moderate to high risk. Ms Dan is still agitated and restless. She is restrained in dialysis. Exam alert Restless and confused Not tachycardic Agree with assessment and plan as above and per H&P. ___ <Vasyl Beckford - Last Filed: 10/06/18 13:27> (1) Altered mental status Qualifiers: Altered mental status type: unspecified Qualified Code(s): R41.82 - Altered mental status, unspecified <Neal Barrett - Last Filed: 10/06/18 15:01> (1) Diabetes mellitus Qualifiers: Diabetes mellitus type: type 2 Diabetes mellitus long term care pharmacist insulin use: with long term care pharmacist use Diabetes mellitus complication status: with kidney complications Diabetes mellitus complication detail: with chronic kidney disease Chronic kidney disease stage: on chronic dialysis Qualified Code(s): E11.22 - Type 2 diabetes mellitus with diabetic chronic kidney disease; N18.6 - End stage renal disease; Z79.4 - [facility] (current) use of insulin; Z99.2 - Dependence on renal dialysis (2) CAD (coronary artery disease) Qualifiers: Coronary Disease-Associated Artery/Lesion type: unspecified vessel or lesion type [place] vs. transplanted heart: unspecified whether [place] or transplanted heart Associated angina: angina presence unspecified Qualified Code(s): I25.10 - Atherosclerotic heart disease of [place] coronary artery without angina pectoris (3) Hypertension Qualifiers: Hypertension type: unspecified Qualified Code(s): I10 - Essential (primary) hypertension (4) UTI (urinary tract infection) Qualifiers: Qualified Code(s): N39.0 - Urinary tract infection, site not specified; R31.9 - Hematuria, unspecified
[2018-10-06] MEDS: *HR* LORazepam 2 MG/ML VIAL IVP PRN ×2 (16:32→21:15)
[2018-10-06] MEDS ORDERED: diazePAM 10 MG/2 ML SYRINGE IVP ONE (23:17)
[2018-10-07] MEDS: *HR* LORazepam 2 MG/ML VIAL IVP PRN ×2 (01:19→05:20)
[2018-10-07] MEDS ORDERED: SUMAtriptan 6 MG/0.5 ML SQ PRN (02:47)
[2018-10-07] MEDS: Metoprolol XL (24 HR) Succ 25 MG TAB.ER.24H PO SCH (03:57)
[2018-10-07] MEDS: *HR* OxyCODONE/APAP 5/325 TABLET PO PRN (03:57)
[2018-10-07] MEDS: Lisinopril 20 MG TABLET PO SCH (03:57)
[2018-10-07] MEDS: *HR* Heparin 5,000 UNIT/ML VIAL SQ SCH ×2 (05:16→18:05)
[2018-10-07 05:22] LABS: Basophils % 0.7 %; Eosinophils # 0.1 K/mcL (0.0-0.6); Eosinophils % 1.8 %; Hematocrit 39.7 % (35.3-44.9); Immature Granulocytes % 0.3 % (0-4); Lymphocytes # 1.9 K/mcL (0.6-4.6); Lymphocytes % 31.6 %; Mean Corpuscular HGB Conc 32.2 g/dL (31.6-35.5); Mean Corpuscular Hemoglobin 30.6 pg (28.0-33.3); Mean Platelet Volume 10.9 fL (9.4-12.4); Monocytes # 0.7 K/mcL (0.0-1.3); Monocytes % 12.4 %; Neutrophils # 3.2 K/mcL (1.6-8.9); Platelet Count 247 K/mcL (140-400); Red Blood Count 4.18 M/mcL (3.82-4.97); Red Cell Distribution Width 13.9 % (11.5-14.5); Segmented Neutrophils % 53.2 %
[2018-10-07 05:27] LABS: Hemoglobin 12.8 g/dL (11.5-15.4)
[2018-10-07 05:39] LABS: Calcium 9.2 mg/dL (8.6-10.3); Potassium 3.5 mEq/L (3.5-5.1)
[2018-10-07] MEDS: Folic Acid 1 MG TABLET PO SCH (09:37)
[2018-10-07] MEDS: Furosemide 20 MG TABLET PO SCH (09:37)
[2018-10-07] MEDS: Sucralfate 1 GM TABLET PO SCH ×2 (09:37→18:06)
[2018-10-07] MEDS: Lactobacillus 1 EACH CAP.SPRINK PO SCH (09:37)
[2018-10-07] MEDS: Insulin LISPRO 300 UNITS/3 ML VIAL SQ SCH ×4 (09:38→22:05)
--- NOTE | 2018-10-07 12:16 | Nephrology Progress Note ---
Date of Encounter: 10/07/18 Time of Encounter: 12:14 - Assessment and Plan (1) ESRD (end stage renal disease) on dialysis Current Visit: Yes Status: Acute HD MWF. Renal vitamins. Renal dose medications. Renal diet. Additional dialysis and ultrafiltration as needed. No need for dialysis today. (2) UTI (urinary tract infection) Current Visit: Yes Status: Acute Per the primary team. Continue antibiotic therapy. Patient seems to be improving. Qualifiers: Qualified Code(s): N39.0 - Urinary tract infection, site not specified; R31.9 - Hematuria, unspecified (3) Diabetes mellitus type 2 in nonobese Current Visit: No Status: Acute Per the primary team. (4) Encephalopathy acute Current Visit: No Status: Acute Patient remains confused and with hallucinations. She also seems to be improved as compared to yesterday with increased ability to follow commands. Subjective Principal diagnosis: esrd Interval history: Patient seen and evaluated. She remains confused but is more appropriate today than she was yesterday. She is able to follow commands, but continues to have hallucinations. Objective - Vital Signs Vital signs: Vital Signs Temp Pulse Resp BP Pulse Ox 10/07/18 11:10 97.8 F 77 20 153/73 95 10/07/18 09:32 96 10/07/18 07:51 97.6 F 78 20 135/56 96 10/07/18 04:09 98.1 F 97 17 151/79 95 10/07/18 00:10 98.5 F 86 17 125/61 96 10/06/18 20:36 98.0 F 82 17 146/65 97 10/06/18 16:30 97.6 F 85 16 133/66 100 10/06/18 13:15 99.2 F 18 188/62 10/06/18 12:55 140/50 10/06/18 12:40 152/61 10/06/18 12:25 134/52 Intake and Output 10/06/18 10/07/18 10/07/18 23:59 07:59 15:59 Intake Total 300 / 300 300 / 300 Balance 300 / 300 300 / 300 Intake: IV Fluids 300 / 300 300 / 300 Zyvox Premix 600mg/300mL 600 mg 300 / 300 300 / 300 In 300 ml @ 150 mls/hr IVPB Q12HR [facility] Rx#:[id number] Other: Stool Size Moderate Moderate Stool Consistency soft soft Stool Color Brown Brown # Urine Diapers 1 1 # Bowel Movement Diapers 1 1 Weight 74.5 kg Blood Glucose* 157 215 227 Patient Weight 10/07/18 23:59 Weight 74.5 kg - General Appearance General appearance: Present: well-developed, well-nourished EENT: Present: ATNC Neck: Present: supple Cardiology: Present: no edema, regular rate Gastrointestinal: Present: no tenderness Integumentary: Present: warm and dry Neurologic: Present: confused, disoriented Musculoskeletal: Present: no cyanosis Psychiatric: Present: mood/affect appropriate - Lab 10/07/18 04:55 10/07/18 04:55 Most recent lab results Calcium 9.2 mg/dL (8.6-10.3) 10/07/18 04:55 Consult Discharge Plan - Plan Referrals: NONE,PCP [Primary Care Provider] -
--- NOTE | 2018-10-07 17:06 | Internal Med Progress Note ---
Hospitalist Progress Note - Encounter Date of Encounter: 10/07/18 Time of Encounter: 11:40 - Subjective Interval History: Ms Dan is currently admitted for acute encephalopathy and UTI with VRE. She remains moderate to high risk due to potential for worsening clinical status. Ms Dan is a little better today. She is still very confused but appears to be less agitated than yesterday. No fever or chills. No GI issues. She does not give me any further history. - Exam Vitals: Temp Pulse Resp BP Pulse Ox 98.2 F 67 20 169/66 98 10/07/18 16:05 10/07/18 16:05 10/07/18 16:05 10/07/18 16:05 10/07/18 16:05 Exam: Gen: Alert to name only. Appears comfortable at this time. Head: Normocephalic EENT: Mucus membranes dry Neck: Supple Heart: distant but not tachy. Lungs: clear at this time Abd: soft and nontender Ext: moves all extremities. - Assessment and Plan (1) Acute metabolic encephalopathy Current Visit: No Status: Acute Assessment and Plan: Pt with severe agitation and confusion. Presume due to UTI. Seems to be slowly improving. (2) UTI (urinary tract infection) Current Visit: Yes Status: Acute Assessment and Plan: Recent culture grew VRE. Currently on Zyvox. (3) Diabetes mellitus Current Visit: No Status: Chronic Assessment and Plan: Pt with known diabetes. Continue monitor sugar and cover. (4) CAD (coronary artery disease) Current Visit: No Status: Chronic Assessment and Plan: Chronic issue. No symptoms at this time. (5) Hypertension Current Visit: No Status: Chronic Assessment and Plan: Has been up and down. Meds continued. (6) ESRD (end stage renal disease) on dialysis Current Visit: Yes Status: Chronic Assessment and Plan: Appreciate nephrology. (7) Hypothyroidism Current Visit: No Status: Chronic Assessment and Plan: Chronic issue - Time Spent with Patient Total time spent is greater than 50% in coordination of care (as documented) at patient's floor/unit and/or counseling patient: Internal Medicine: Result - Labs CBC & Chem 7: 10/07/18 04:55 10/07/18 04:55 Labs: Short CBC 10/07/18 Range/Units 04:55 WBC 6.0 (4.3-11.1) K/mcL Hgb 12.8 D (11.5-15.4) g/dL Hct 39.7 (35.3-44.9) % Plt Count 247 (140-400) K/mcL Neutrophils # 3.2 (1.6-8.9) K/mcL BMP 10/07/18 04:55 Sodium 137 Potassium 3.5 Chloride 95 L Carbon Dioxide 32 H BUN 26 H Creatinine 2.81 H Glucose 177 H Calcium 9.2 Consult Discharge Plan - Plan Referrals: NONE,PCP [Primary Care Provider] - (2) UTI (urinary tract infection) Qualifiers: Urinary tract infection type: acute cystitis Hematuria presence: with hematuria Qualified Code(s): N30.01 - Acute cystitis with hematuria (3) Diabetes mellitus Qualifiers: Diabetes mellitus type: type 2 Diabetes mellitus emt intermediate insulin use: with emt intermediate use Diabetes mellitus complication status: with kidney complications Diabetes mellitus complication detail: with chronic kidney disease Chronic kidney disease stage: on chronic dialysis Qualified Code(s): E11.22 - Type 2 diabetes mellitus with diabetic chronic kidney disease; N18.6 - End stage renal disease; Z79.4 - emt intermediate (current) use of insulin; Z99.2 - Dependence on renal dialysis (4) CAD (coronary artery disease) Qualifiers: Coronary Disease-Associated Artery/Lesion type: bypass graft [place] vs. transplanted heart: [place] heart Associated angina: without angina Qualified Code(s): I25.810 - Atherosclerosis of coronary artery bypass graft(s) without angina pectoris (5) Hypertension Qualifiers: Hypertension type: renovascular hypertension Qualified Code(s): I15.0 - Renovascular hypertension (7) Hypothyroidism Qualifiers: Hypothyroidism type: acquired Qualified Code(s): E03.9 - Hypothyroidism, unspecified
[2018-10-07] MEDS: Thiamine (B-1) 100 MG TABLET PO SCH (18:06)
[2018-10-08] MEDS: Lisinopril 20 MG TABLET PO SCH (03:27)
[2018-10-08] MEDS: Metoprolol XL (24 HR) Succ 25 MG TAB.ER.24H PO SCH (03:27)
[2018-10-08] MEDS: *HR* Heparin 5,000 UNIT/ML VIAL SQ SCH ×2 (05:23→16:43)
--- NOTE | 2018-10-08 07:13 | Nephrology Progress Note ---
Date of Encounter: 10/08/18 Time of Encounter: 07:12 - Assessment and Plan (1) ESRD (end stage renal disease) on dialysis Current Visit: Yes Status: Chronic HD MWF. Renal vitamins. Renal dose medications. Renal diet. Additional dialysis and ultrafiltration as needed. No need for dialysis today. (2) UTI (urinary tract infection) Current Visit: Yes Status: Acute Per the primary team. Continue antibiotic therapy. Patient seems to be improving. Qualifiers: Urinary tract infection type: acute cystitis Hematuria presence: with hematuria Qualified Code(s): N30.01 - Acute cystitis with hematuria (3) Diabetes mellitus type 2 in nonobese Current Visit: No Status: Acute Per the primary team. (4) Encephalopathy acute Current Visit: No Status: Acute Patient seems to be improved as compared to yesterday with increased ability to follow commands. Subjective Principal diagnosis: esrd Interval history: Patient seen and evaluated. She continues to improve, but still has some hallucinations. Overall improving. She feels better. Objective - Vital Signs Vital signs: Vital Signs Temp Pulse Resp BP Pulse Ox 10/08/18 04:04 98 F 71 16 127/64 98 10/07/18 23:51 98.1 F 79 17 164/72 98 10/07/18 21:29 97.9 F 81 18 171/73 97 10/07/18 16:05 98.2 F 67 20 169/66 98 10/07/18 11:10 97.8 F 77 20 153/73 95 10/07/18 09:32 96 10/07/18 07:51 97.6 F 78 20 135/56 96 Intake and Output 10/07/18 10/07/18 10/08/18 15:59 23:59 07:59 Intake Total 480 / 480 300 / 300 Output Total 400 / 400 0 / 0 Balance 480 / 480 -100 / -100 0 / 0 Intake: IV Fluids 300 / 300 Zyvox Premix 600mg/300mL 600 mg 300 / 300 In 300 ml @ 150 mls/hr IVPB Q12HR YUSUF Rx#:[id number] Oral 480 / 480 Output: Urine 0 / 0 Straight Cath 400 / 400 Other: Meal Lunch Percent of Meal Consumed 100% Stool Size Smear Stool Color Brown # Urine Diapers 1 # Bowel Movements 1 Weight 75.1 kg Blood Glucose* 227 238 - General Appearance General appearance: Present: well-developed, well-nourished EENT: Present: ATNC Neck: Present: supple Cardiology: Present: regular rate Dialysis Vascular Access: Arteriovenous Graft Integumentary: Present: warm and dry - Lab 10/08/18 07:15 10/07/18 04:55 Most recent lab results Calcium 9.2 mg/dL (8.6-10.3) 10/07/18 04:55 Consult Discharge Plan - Plan Referrals: NONE,PCP [Primary Care Provider] -
[2018-10-08 07:30] LABS: Hematocrit 32.5 % (35.3-44.9); Mean Corpuscular HGB Conc 34.5 g/dL (31.6-35.5); Mean Corpuscular Hemoglobin 31.3 pg (28.0-33.3); Mean Corpuscular Volume 90.8 fL (83.0-100.0); Mean Platelet Volume 11.7 fL (9.4-12.4); Platelet Count 174 K/mcL (140-400); Red Blood Count 3.58 M/mcL (3.82-4.97); Red Cell Distribution Width 13.7 % (11.5-14.5)
[2018-10-08 07:33] LABS: Hemoglobin 11.2 g/dL (11.5-15.4)
[2018-10-08] MEDS: Aspirin Enteric Coated 81 MG Tablet PO SCH (08:55)
[2018-10-08] MEDS: Lactobacillus 1 EACH CAP.SPRINK PO SCH (08:55)
[2018-10-08] MEDS: Furosemide 20 MG TABLET PO SCH (08:55)
[2018-10-08] MEDS: Thiamine (B-1) 100 MG TABLET PO SCH (08:56)
[2018-10-08] MEDS: Folic Acid 1 MG TABLET PO SCH (08:56)
[2018-10-08] MEDS: Sucralfate 1 GM TABLET PO SCH ×2 (08:56→16:43)
[2018-10-08] MEDS: Insulin LISPRO 300 UNITS/3 ML VIAL SQ SCH ×4 (08:56→20:39)
--- NOTE | 2018-10-08 12:38 | Internal Med Progress Note ---
Hospitalist Progress Note - Encounter Date of Encounter: 10/08/18 Time of Encounter: 09:10 - Subjective Interval History: Ms Dan is currently admitted for acute encephalopathy and UTI with VRE. She remains moderate to high risk due to potential for worsening clinical status. Ms Dan is awake and alert today. She is still confused overall but was filling out her menu. Denies pain. Just vomited her AM meds. No fever or chills. No diarrhea. Tolerating Zyvox. - Exam Vitals: Temp Pulse Resp BP Pulse Ox 97.9 F 65 20 140/68 98 10/08/18 12:17 10/08/18 12:17 10/08/18 12:17 10/08/18 12:17 10/08/18 12:17 Exam: Gen: Appears comfortable at this time. Appears more alert and interactive though still confused. Head: Normocephalic EENT: Mucus membranes dry. No lesion. Neck: Supple. Moves well. Heart: Not tachycardic at this time. Lungs: Scattered rales. Abd: soft and nontender Ext: moves all extremities. - Assessment and Plan (1) Acute metabolic encephalopathy Current Visit: No Status: Acute Assessment and Plan: Slowly improving each day. Continue treatment of UTI. Hopefully will be able to return to SNF in next 1-2 days. (2) UTI (urinary tract infection) Current Visit: Yes Status: Acute Assessment and Plan: Recent culture grew VRE. Currently on Zyvox. Clinically improving. (3) Diabetes mellitus Current Visit: No Status: Chronic Assessment and Plan: Pt with known diabetes. Sugars fairly controlled. Continue monitor sugar and cover. (4) CAD (coronary artery disease) Current Visit: No Status: Chronic Assessment and Plan: Chronic issue. No symptoms at this time. (5) Hypertension Current Visit: No Status: Chronic Assessment and Plan: High last night. Improved this AM. Will eval meds today now that she is more alert and interactive. (6) ESRD (end stage renal disease) on dialysis Current Visit: Yes Status: Chronic Assessment and Plan: Appreciate nephrology. (7) Hypothyroidism Current Visit: No Status: Chronic Assessment and Plan: Chronic issue (8) VRE (vancomycin resistant enterococcus) culture positive Current Visit: Yes Status: Acute Assessment and Plan: Pt with current VRE in urine. - Time Spent with Patient Total time spent is greater than 50% in coordination of care (as documented) at patient's floor/unit and/or counseling patient: Internal Medicine: Result - Labs CBC & Chem 7: 10/08/18 07:15 10/07/18 04:55 Labs: Short CBC 10/08/18 Range/Units 07:15 WBC 6.6 (4.3-11.1) K/mcL Hgb 11.2 L D (11.5-15.4) g/dL Hct 32.5 L (35.3-44.9) % Plt Count 174 (140-400) K/mcL Consult Discharge Plan - Plan Referrals: NONE,PCP [Primary Care Provider] - (2) UTI (urinary tract infection) Qualifiers: Urinary tract infection type: acute cystitis Hematuria presence: with hematuria Qualified Code(s): N30.01 - Acute cystitis with hematuria (3) Diabetes mellitus Qualifiers: Diabetes mellitus type: type 2 Diabetes mellitus prison insulin use: with ad terminal makeup operator use Diabetes mellitus complication status: with kidney complications Diabetes mellitus complication detail: with chronic kidney disease Chronic kidney disease stage: on chronic dialysis Qualified Code(s): E11.22 - Type 2 diabetes mellitus with diabetic chronic kidney disease; N18.6 - End stage renal disease; Z79.4 - ad terminal makeup operator (current) use of insulin; Z99.2 - Dependence on renal dialysis (4) CAD (coronary artery disease) Qualifiers: Coronary Disease-Associated Artery/Lesion type: bypass graft [place] vs. transplanted heart: [place] heart Associated angina: without angina Qualified Code(s): I25.810 - Atherosclerosis of coronary artery bypass graft(s) without angina pectoris (5) Hypertension Qualifiers: Hypertension type: renovascular hypertension Qualified Code(s): I15.0 - Renovascular hypertension (7) Hypothyroidism Qualifiers: Hypothyroidism type: acquired Qualified Code(s): E03.9 - Hypothyroidism, unspecified
[2018-10-08] MEDS ORDERED: Insulin DETEMIR 100 UNIT/ML X5UNITS SQ SCH (21:00)
[2018-10-09 05:34] LABS: Hematocrit 32.3 % (35.3-44.9); Hemoglobin 10.8 g/dL (11.5-15.4); Mean Corpuscular HGB Conc 33.4 g/dL (31.6-35.5); Mean Corpuscular Hemoglobin 30.9 pg (28.0-33.3); Mean Corpuscular Volume 92.6 fL (83.0-100.0); Mean Platelet Volume 10.7 fL (9.4-12.4); Platelet Count 205 K/mcL (140-400); Red Blood Count 3.49 M/mcL (3.82-4.97); Red Cell Distribution Width 13.8 % (11.5-14.5)
[2018-10-09 05:46] LABS: Calcium 8.4 mg/dL (8.6-10.3); Potassium 5.6 mEq/L (3.5-5.1)
[2018-10-09] MEDS: *HR* Heparin 5,000 UNIT/ML VIAL SQ SCH (05:53)
[2018-10-09] MEDS: *HR* OxyCODONE/APAP 5/325 TABLET PO PRN (05:53)
[2018-10-09] MEDS ORDERED: 0.9 % Sodium Chloride 250 ML IVC PRN (06:22)
[2018-10-09] MEDS: Lactobacillus 1 EACH CAP.SPRINK PO SCH (07:47)
[2018-10-09] MEDS: Furosemide 20 MG TABLET PO SCH (07:47)
[2018-10-09] MEDS: Thiamine (B-1) 100 MG TABLET PO SCH (07:47)
[2018-10-09] MEDS: Aspirin Enteric Coated 81 MG Tablet PO SCH (07:47)
[2018-10-09] MEDS: Sucralfate 1 GM TABLET PO SCH (07:47)
[2018-10-09] MEDS: Folic Acid 1 MG TABLET PO SCH (07:48)
[2018-10-09] MEDS: Insulin LISPRO 300 UNITS/3 ML VIAL SQ SCH ×2 (07:59→12:23)
--- NOTE | 2018-10-09 09:28 | Nephrology Progress Note ---
Addendum entered and electronically signed by Bonilla Sierra DO 10/09/18 16:44: I have personally performed a face to face evaluation on this patient. I have reviewed and agree with the care plan. History and Exam by me shows: HD today for clearance and for hyperkalemia. Original Note: Date of Encounter: 10/09/18 Time of Encounter: 09:24 - Assessment and Plan (1) ESRD (end stage renal disease) on dialysis Current Visit: Yes Status: Chronic HD MWF. Renal vitamins. Renal dose medications. Renal diet. Additional dialysis and ultrafiltration as needed. HD in progress for today. (2) Diabetes mellitus type 2 in nonobese Current Visit: No Status: Acute Per the primary team. (3) Encephalopathy acute Current Visit: No Status: Acute Appears resolved, alert and oriented today. (4) UTI (urinary tract infection) Current Visit: Yes Status: Acute Per the primary team. Continue antibiotic therapy. Patient seems to be improving. Patient has had to be straight cathed several times, consider outpatient urology consult to determine if chronic porter cath is indicated, or straight caths are indicated at home. Patient agrees to go to ECF but only has "38 days" left in a facility, so this is concerning if she can not care for herself at home. Qualifiers: Urinary tract infection type: acute cystitis Hematuria presence: with hematuria Qualified Code(s): N30.01 - Acute cystitis with hematuria Subjective Principal diagnosis: esrd Interval history: Pt seen and examined during HD. Denies CP or shortness of breath. Denies emesis, but admits to nausea. Objective - Vital Signs Vital signs: Vital Signs Temp Pulse Resp BP Pulse Ox 10/09/18 07:57 97.9 F 98 16 154/84 93 10/09/18 05:45 98.8 F 61 18 124/53 98 10/09/18 01:11 98.2 F 65 18 107/55 100 10/08/18 21:48 97.9 F 62 18 185/69 99 10/08/18 16:21 99.1 F 65 20 128/70 93 10/08/18 12:17 97.9 F 65 20 140/68 98 Intake and Output 10/08/18 10/09/18 10/09/18 23:59 07:59 15:59 Intake Total 300 / 300 Output Total 450 / 450 300 / 300 Balance -150 / -150 -300 / -300 Intake: IV Fluids 300 / 300 Zyvox Premix 600mg/300mL 600 mg 300 / 300 In 300 ml @ 150 mls/hr IVPB Q12HR YUSUF Rx#:[id number] Output: Urine 100 / 100 Straight Cath 350 / 350 300 / 300 Other: Stool Size Small Stool Consistency soft Stool Color Brown # Urine Diapers 1 Weight 73.9 kg Blood Glucose* 127 184 Patient Weight 10/09/18 23:59 Weight 73.9 kg - General Appearance General appearance: Present: well-developed, well-nourished EENT: Present: ATNC, hearing intact, vision intact Neck: Present: supple Respiratory: Present: clear Cardiology: Present: no edema, normal S1, normal S2 Dialysis Vascular Access: Arteriovenous Fistula thrill: Yes bruit: Yes Gastrointestinal: Present: normoactive bowel sounds, no tenderness, no guarding Integumentary: Present: no rash, warm and dry Neurologic: Present: alert and oriented x3 Psychiatric: Present: mood/affect appropriate, cooperative - Lab 10/09/18 05:16 10/09/18 05:16 Most recent lab results Calcium 8.4 mg/dL (8.6-10.3) L 10/09/18 05:16 Consult Discharge Plan - Plan Referrals: NONE,PCP [Primary Care Provider] -
--- NOTE | 2018-10-09 09:32 | Internal Med Progress Note ---
Hospitalist Progress Note - Encounter Date of Encounter: 10/09/18 - Subjective Interval History: 10/09 Dialysis today per schedule; potassium pre-dialysis 5.6, continuing zyvox, re sident of SNF (placement pending). ROS: 10/06 Patient seen and evaluated in the dialysis unit; currently undergoing HD as routine MWF. Patient is vocal alert to name only; answers few questions but altered. [address] ROS limited in setting of altered status, not in pain. - Exam Vitals: Temp Pulse Resp BP Pulse Ox 97.9 F 98 16 154/84 93 10/09/18 07:57 10/09/18 07:57 10/09/18 07:57 10/09/18 07:57 10/09/18 07:57 - Assessment and Plan (1) Altered mental status Current Visit: Yes Status: Acute - Time Spent with Patient Total time spent is greater than 50% in coordination of care (as documented) at patient's floor/unit and/or counseling patient: Internal Medicine: Result - Labs CBC & Chem 7: 10/09/18 05:16 10/09/18 05:16 Labs: Short CBC 10/09/18 Range/Units 05:16 WBC 7.0 (4.3-11.1) K/mcL Hgb 10.8 L (11.5-15.4) g/dL Hct 32.3 L (35.3-44.9) % Plt Count 205 (140-400) K/mcL BMP 10/09/18 05:16 Sodium 131 L Potassium 5.6 H Chloride 98 Carbon Dioxide 23 BUN 55 H Creatinine 4.71 H Glucose 119 H Calcium 8.4 L Consult Discharge Plan - Plan Referrals: NONE,PCP [Primary Care Provider] - (1) Altered mental status Qualifiers: Altered mental status type: unspecified Qualified Code(s): R41.82 - Altered mental status, unspecified
[2018-10-09] MEDS ORDERED: 0.9 % Sodium Chloride 2,000 ML ONE (11:12)
[2018-10-09 12:19] VITALS: BP 123/54
--- NOTE | 2018-10-09 13:21 | Discharge Summary ---
<Neal Barrett - Last Filed: 10/09/18 15:56> Date of Encounter: 10/09/18 - Discharge Diagnosis (1) Acute metabolic encephalopathy Priority: Primary Status: Acute (2) UTI (urinary tract infection) Status: Acute Qualifiers: Urinary tract infection type: acute cystitis Hematuria presence: with hematuria Qualified Code(s): N30.01 - Acute cystitis with hematuria (3) Diabetes mellitus Priority: Secondary Status: Chronic Qualifiers: Diabetes mellitus type: type 2 Diabetes mellitus television operator insulin use: with television operator use Diabetes mellitus complication status: with kidney complications Diabetes mellitus complication detail: with chronic kidney disease Chronic kidney disease stage: on chronic dialysis Qualified Code(s): E11.22 - Type 2 diabetes mellitus with diabetic chronic kidney disease; N18.6 - End stage renal disease; Z79.4 - [facility] (current) use of insulin; Z99.2 - Dependence on renal dialysis (4) CAD (coronary artery disease) Status: Chronic Qualifiers: Coronary Disease-Associated Artery/Lesion type: bypass graft [place] vs. transplanted heart: [place] heart Associated angina: without angina Qualified Code(s): I25.810 - Atherosclerosis of coronary artery bypass graft(s) without angina pectoris (5) Hypertension Priority: Secondary Status: Chronic Qualifiers: Hypertension type: renovascular hypertension Qualified Code(s): I15.0 - Renovascular hypertension (6) ESRD (end stage renal disease) on dialysis Status: Chronic (7) Hypothyroidism Priority: Secondary Status: Chronic Qualifiers: Hypothyroidism type: acquired Qualified Code(s): E03.9 - Hypothyroidism, unspecified (8) VRE (vancomycin resistant enterococcus) culture positive Status: Acute Hospital course: Ms. Dan is a 67 year old female - Time Spent with Patient Total time spent providing and/or coordinating discharge services: 27min - Discharge Medications Prescriptions: OxyCODONE/APAP 5/325 [Percocet 5/325 MG] 1 each PO Q8HR PRN 5 Days #15 tablet PRN Reason: Pain Linezolid [Zyvox] 600 mg PO BID 5 Days #10 tablet Home Medications: Folic Acid 1 mg PO DAILY 07/10/15 [History] Levothyroxine [Synthroid] 50 mcg PO 2000 07/10/15 [History] Pantoprazole Sodium [Protonix] 40 mg PO BID 07/10/15 [History] Docusate [Colace] 100 mg PO BID 10/14/16 [History] Albuterol Sulfate [Proair Hfa] 2 puff IH Q4H PRN 03/17/17 [History] Atorvastatin [Lipitor] 40 mg PO HS 03/17/17 [History] Clopidogrel [Plavix] 75 mg PO DAILY 05/09/17 [History] Sucralfate [Carafate] 1 gm PO 0730,1630 05/09/17 [History] Furosemide [Lasix] 20 mg PO DAILY 03/01/18 [History] Amitriptyline [Elavil] 25 mg PO HS 03/26/18 [History] Ergocalciferol (VITAMIN D2) [Drisdol] 50,000 unit PO MO 03/26/18 [History] Insulin DETEMIR [Levemir] 12 unit SQ 0800 03/26/18 [History] Tamsulosin [Flomax] 0.4 mg PO DAILY 03/26/18 [History] Zolpidem [Ambien] 5 mg PO HS 03/26/18 [History] Lactobacillus Combination No.8 [Adult Probiotic] 1 cap PO DAILY 05/04/18 [History] Pramipexole Di-HCl [Pramipexole Dihydrochloride] 0.125 mg PO HS 05/04/18 [History] Promethazine [Phenergan] 25 mg PO TID PRN 05/04/18 [History] Psyllium Husk [Daily Fiber] 0.52 gm PO DAILY PRN 05/04/18 [History] SUMAtriptan Succinate [Imitrex] 6 mg SQ BID PRN 05/04/18 [History] Baclofen [Lioresal] 10 mg PO TID 07/31/18 [History] Lisinopril [Zestril] 20 mg PO SUTUTHSA 07/31/18 [History] Mirtazapine [Remeron] 15 mg PO HS 07/31/18 [History] Insulin DETEMIR [Levemir Flextouch] 14 unit SQ 2000 08/06/18 [History] Aspirin Enteric Coated [Aspirin EC] 81 mg PO DAILY 09/04/18 [History] Calcium Carbonate [Calcium] 500 mg PO BID 09/04/18 [History] Metoprolol XL (24 HR) Succ [Toprol Xl] 12.5 mg PO SUTUTHSA 09/04/18 [History] Midodrine [ProAmatine] 5 mg PO MOWEFR 09/04/18 [History] Oxybutynin Chloride [Ditropan Xl] 10 mg PO DAILY 09/04/18 [History] OxyCODONE/APAP 5/325 [Percocet 5/325 MG] 1 tab PO TID PRN 3 Days #9 tablet 09/06/18 [Rx] Linezolid [Zyvox] 600 mg PO BID 5 Days #10 tablet 10/09/18 [Rx] OxyCODONE/APAP 5/325 [Percocet 5/325 MG] 1 each PO Q8HR PRN 5 Days #15 tablet 10/09/18 [Rx] Allergies/Adverse Reactions: Allergy/AdvReac Type Severity Reaction Status Date / Time adhesive tape Allergy Redness of Verified 09/28/18 15:57 Skin latex Allergy Swelling Verified 09/29/18 09:10 of Lip/Tongue/Throat Sulfa (Sulfonamide Allergy Rash Verified 09/29/18 09:10 Antibiotics) Date of admission: 10/08/18 12:33 Primary care physician: PCP NONE Consults: 10/06/18 03:01 Consult to Nephrology [CONS] Routine Consulting Provider: Kidney Julianne/FLORENTIN/KIERRA/PEACE Reason for Consult: ESRD on HD; AMS Call Completed: No 10/06/18 07:45 Consult to Dialysis [CONS] ONCE 10/06/18 08:59 Consult to Director Of Vendor Management [CONS] Routine Reason for SW Consult: needs ecf 10/09/18 06:30 Consult to Dialysis [CONS] ONCE - Constitutional Vitals: Temp Pulse Resp BP Pulse Ox 97.1 F L 98 18 123/54 93 10/09/18 11:50 10/09/18 07:57 10/09/18 11:50 10/09/18 11:50 10/09/18 07:57 - Patient Status Disposition: Transfer SNF Condition: Good - Discharge Instructions Follow Up With: NONE,PCP [Primary Care Provider] - - Attending Attestation I examined this patient and my medical decision-making was reviewed with the Resident Physician on 10/09/18. I agree with the documented findings, disposition and treatment plan as described except to the extent set forth below. Ms. Dan has been admitted for acute encephalopathy related to UTI with VRE. She has been on PO Zyvox with improvement in mentation. She has had some nausea from the medication. She is afebrile and had dialysis today. She is ready to go to SNF for rehab and abx. Exam Alert Comfortable up in chair. Mucus membranes moist No adenopathy Heart distant and not tachy No wheeze abd nontender Moves all extremities Plan D/C to SNF today Complete course of Zyvox Further diagnoses and plan as above <Vasyl Beckford - Last Filed: 10/09/18 19:38> - NOTES TO OUTPATIENT PROVIDER Notes to Outpatient Provider: SNF transfer; 5 more days of Zyvox; prn anti- emetics (common side-effect of Zyvox); phenergan recommended over zofran per [facility]. Expected to subside after day 10 is done. Date of Encounter: 10/09/18 Time of Encounter: 09:00 - Discharge Diagnosis (1) Altered mental status Priority: Primary Status: Acute Qualifiers: Altered mental status type: unspecified Qualified Code(s): R41.82 - Altered mental status, unspecified (2) UTI (urinary tract infection) Priority: Secondary Status: Acute Qualifiers: Urinary tract infection type: acute cystitis Hematuria presence: with hematuria Qualified Code(s): N30.01 - Acute cystitis with hematuria (3) VRE (vancomycin resistant enterococcus) culture positive Priority: Secondary Status: Acute (4) ESRD (end stage renal disease) on dialysis Priority: Secondary Status: Chronic (5) CAD (coronary artery disease) Priority: Secondary Status: Chronic Qualifiers: Coronary Disease-Associated Artery/Lesion type: bypass graft [place] vs. transplanted heart: [place] heart Associated angina: without angina Qualified Code(s): I25.810 - Atherosclerosis of coronary artery bypass graft(s) without angina pectoris (6) Diabetes mellitus Priority: Secondary Status: Chronic Qualifiers: Diabetes mellitus type: type 2 Diabetes mellitus television operator insulin use: with television operator use Diabetes mellitus complication status: with unspecified complications Qualified Code(s): E11.8 - Type 2 diabetes mellitus with unspecified complications; Z79.4 - [facility] (current) use of insulin (7) Hypothyroidism Status: Chronic Qualifiers: Hypothyroidism type: unspecified Qualified Code(s): E03.9 - Hypothyroidism, unspecified Hospital course: Ms. Dan is a 67 year old female with PMH of ESRD on dialysis who presented with AMS secondary to VRE. Patient was started on a 10 day course of Zyvox (per culture and sensitivity, day 5 at discharge); followed nephrology, with MWF dialysis as scheduled; she was discharged to SNF with the remainder of her PO tr eatment. She remained hemodynamically stable during hospital course. Mentation greatly improved over course of treatment. - Time Spent with Patient Total time spent providing and/or coordinating discharge services: Date of admission: 10/08/18 12:33 Primary care physician: PCP NONE Consults: 10/06/18 03:01 Consult to Nephrology [CONS] Routine Consulting Provider: Taran Whitaker/FLORENTIN/KIERRA/PEACE Reason for Consult: ESRD on HD; AMS Call Completed: No 10/06/18 07:45 Consult to Dialysis [CONS] ONCE 10/06/18 08:59 Consult to Director Of Vendor Management [CONS] Routine Reason for SW Consult: needs ecf 10/09/18 06:30 Consult to Dialysis [CONS] ONCE - Constitutional Vitals: Temp Pulse Resp BP Pulse Ox 97.1 F L 98 18 123/54 93 10/09/18 11:50 10/09/18 07:57 10/09/18 11:50 10/09/18 11:50 10/09/18 07:57 General appearance: Present: disheveled, A&O X 2, mild distress Exam: . - Head Head exam: Present: atraumatic, normocephalic - Eye Eye exam: Present: conjuntiva pink, sclera anicteric - Neck Neck exam general surgery: Present: supple, trachea midline. Absent: lymphadenopathy - Respiratory Respiratory exam: Present: CTAB. Absent: accessory muscle use, rales, rhonchi, wheezes - Cardiovascular Cardiovascular exam: Present: RRR, +S1, +S2. Absent: diastolic murmur, gallop, rubs, systolic murmur - GI/Abdominal GI/Abdominal exam: Present: normal bowel sounds, soft, no peritoneal signs. Absent: distended, tenderness - Extremities Exam Extremities exam: Present: warm, radial pulses palpable and symmetrical. Absent: calf tenderness, cyanotic, pedal edema Additional comments: AV fistula in R arm (brachial-cephalic) - Neurological Exam Neurological exam: Present: CN II-XII intact, oriented X3, no focal deficits. Absent: pronater drift, facial droop, speech deficit - Skin Skin exam: Present: dry, intact - Patient Status Functional capacity at discharge: independent ambulation Overall status at discharge: patient is progressing back to baseline - Diet and Activity Activity: increase activity as tolerated Diet: diabetic diet, low salt diet
--- NOTE | 2018-10-09 13:33 | Physician Discharge Referral ---
<Vasyl Beckford - Last Filed: 10/09/18 13:36> ExtendedCare Referral Info Transfer To: [facility] - Diagnosis (1) Altered mental status Priority: Secondary Status: Acute (3) VRE (vancomycin resistant enterococcus) culture positive Priority: Secondary Status: Acute (5) CAD (coronary artery disease) Priority: Secondary Status: Chronic (8) UTI (urinary tract infection) Priority: Primary Status: Acute (9) Acute metabolic encephalopathy Priority: Secondary Status: Acute (10) Diabetes mellitus Priority: Secondary Status: Chronic (11) Hypertension Priority: Secondary Status: Chronic (12) Hypothyroidism Priority: Secondary Status: Chronic (13) ESRD (end stage renal disease) on dialysis Status: Chronic Prognosis: Fair Aware of Diagnosis: Patient Aware of Prognosis: Patient - Transfer Medications Prescriptions: Linezolid [Zyvox] 600 mg PO BID 5 Days #10 tablet Home Medications: Folic Acid 1 mg PO DAILY 07/10/15 [History] Levothyroxine [Synthroid] 50 mcg PO 199907/10/15 [History] Pantoprazole Sodium [Protonix] 40 mg PO BID 07/10/15 [History] Docusate [Colace] 100 mg PO BID 10/14/16 [History] Albuterol Sulfate [Proair Hfa] 2 puff IH Q4H PRN 03/17/17 [History] Atorvastatin [Lipitor] 40 mg PO HS 03/17/17 [History] Clopidogrel [Plavix] 75 mg PO DAILY 05/09/17 [History] Sucralfate [Carafate] 1 gm PO 0730,1630 05/09/17 [History] Furosemide [Lasix] 20 mg PO DAILY 03/01/18 [History] Amitriptyline [Elavil] 25 mg PO HS 03/26/18 [History] Ergocalciferol (VITAMIN D2) [Drisdol] 50,000 unit PO MO 03/26/18 [History] Insulin DETEMIR [Levemir] 12 unit SQ 0800 03/26/18 [History] Tamsulosin [Flomax] 0.4 mg PO DAILY 03/26/18 [History] Zolpidem [Ambien] 5 mg PO HS 03/26/18 [History] Lactobacillus Combination No.8 [Adult Probiotic] 1 cap PO DAILY 05/04/18 [History] Pramipexole Di-HCl [Pramipexole Dihydrochloride] 0.125 mg PO HS 05/04/18 [History] Promethazine [Phenergan] 25 mg PO TID PRN 05/04/18 [History] Psyllium Husk [Daily Fiber] 0.52 gm PO DAILY PRN 05/04/18 [History] SUMAtriptan Succinate [Imitrex] 6 mg SQ BID PRN 05/04/18 [History] Baclofen [Lioresal] 10 mg PO TID 07/31/18 [History] Lisinopril [Zestril] 20 mg PO SUTUTHSA 07/31/18 [History] Mirtazapine [Remeron] 15 mg PO HS 07/31/18 [History] Insulin DETEMIR [Levemir Flextouch] 14 unit SQ 2000 08/06/18 [History] Aspirin Enteric Coated [Aspirin EC] 81 mg PO DAILY 09/04/18 [History] Calcium Carbonate [Calcium] 500 mg PO BID 09/04/18 [History] Metoprolol XL (24 HR) Succ [Toprol Xl] 12.5 mg PO SUTUTHSA 09/04/18 [History] Midodrine [ProAmatine] 5 mg PO MOWEFR 09/04/18 [History] Oxybutynin Chloride [Ditropan Xl] 10 mg PO DAILY 09/04/18 [History] OxyCODONE/APAP 5/325 [Percocet 5/325 MG] 1 tab PO TID PRN 3 Days #9 tablet 09/06/18 [Rx] Linezolid [Zyvox] 600 mg PO BID 5 Days #10 tablet 10/09/18 [Rx] Allergies/Adverse Reactions: Allergy/AdvReac Type Severity Reaction Status Date / Time adhesive tape Allergy Redness of Verified 09/28/18 15:57 Skin latex Allergy Swelling Verified 09/29/18 09:10 of Lip/Tongue/Throat Sulfa (Sulfonamide Allergy Rash Verified 09/29/18 09:10 Antibiotics) - Respiratory Orders None Smoking Cessation: Smoking cessation has been advised. For more information, call the [place] Tobacco Quit Line at 1-754-CKAS-NOW. - Advance Directives Code Status: DNR-Arrest/Don't Intubate - Mobility Orders Ambulate - Rehabiliation Orders Rehab Potential: Fair Rehab Orders: Evaluation for Physical Therapy, Evaluation for Occupational Therapy - Diet Orders Regular CERTIFICATION: I certify that the transfer of the above named patient to an Extended Care Facility is necessary for the continuing treatment of the diagnosis listed. The above information is true and accurate reflection of patient's current condition. Confidential - Redisclosure prohibited without a patient's written consent. <Neal Barrett - Last Filed: 10/09/18 15:37> ExtendedCare Referral Info Provider in Charge after Transfer: PCP Institutional Level of Care: Skilled - Diagnosis (1) Acute metabolic encephalopathy Status: Acute (2) UTI (urinary tract infection) Priority: Primary Status: Acute (3) Diabetes mellitus Status: Chronic (4) CAD (coronary artery disease) Status: Chronic (5) Hypertension Status: Chronic (6) ESRD (end stage renal disease) on dialysis Priority: Secondary Status: Chronic (7) Hypothyroidism Status: Chronic (8) VRE (vancomycin resistant enterococcus) culture positive Status: Acute - Respiratory Orders Smoking Cessation: Smoking cessation has been advised. For more information, call the [place] [employer] Quit Line at 6-294-XTXBNOW. - Ancillary Orders May use pressure relief devices daily prn, May consult with Dentist, Crystalizer, Deputy Treasurer PRN - Treatments Skin tear care topically daily PRN per policy, May check for fecal impaction rectally daily PRN, Fleet enema rectally every other day PRN cleansing purposes - Diet Orders Renal CERTIFICATION: I certify that the transfer of the above named patient to an Extended Care Facility is necessary for the continuing treatment of the diagnosis listed. The above information is true and accurate reflection of patient's current condition. Confidential - Redisclosure prohibited without a patient's written consent.
[2018-10-09] MEDS ORDERED: Linezolid 600 MG TABLET PO SCH (21:00)
== END 2018-10-09 17:14 | DRG 689 ==
LOC: EMEROOARM 19:51 → 2ANU 19:51 → SUATTDRO 23:22 → 2ANU 23:35
PROVIDERS: ADMIT Internal Medicine; ATTEND Internal Medicine

== ENCOUNTER 2018-12-02 21:26 | Observation (INO) ==
[2018-12-02] MEDS ORDERED: Acetaminophen 325 MG TABLET PO ONE (22:27)
[2018-12-02 22:59] LABS: Basophils % 0.6 %; Eosinophils # 0.2 K/mcL (0.0-0.6); Eosinophils % 3.6 %; Hematocrit 31.2 % (35.3-44.9); Hemoglobin 9.8 g/dL (11.5-15.4); Immature Granulocytes % 0.2 % (0-4); Lymphocytes # 1.6 K/mcL (0.6-4.6); Lymphocytes % 25.7 %; Mean Corpuscular HGB Conc 31.4 g/dL (31.6-35.5); Mean Corpuscular Hemoglobin 29.9 pg (28.0-33.3); Mean Corpuscular Volume 95.1 fL (83.0-100.0); Monocytes # 0.8 K/mcL (0.0-1.3); Monocytes % 13.4 %; Neutrophils # 3.5 K/mcL (1.6-8.9); Platelet Count 167 K/mcL (140-400); Red Blood Count 3.28 M/mcL (3.82-4.97); Red Cell Distribution Width 14.9 % (11.5-14.5); Segmented Neutrophils % 56.5 %
[2018-12-02 23:09] LABS: Calcium 8.7 mg/dL (8.6-10.3); Potassium 3.8 mEq/L (3.5-5.1)
--- NOTE | 2018-12-03 00:03 | Emergency Department Note ---
Disposition Clinical Impression: Weakness generalized Fall Qualifiers: Encounter type: initial encounter Qualified Code(s): W19.XXXA - Unspecified fall, initial encounter Disposition: Admitted As Inpatient Condition: Good Forms: ED Satisfaction Letter Fall HPI - General Chief Complaint: ED Head Injury Stated Complaint: Fall Time Seen by Provider: 12/02/18 21:47 Source: patient Mode of arrival: private vehicle Limitations: no limitations Nursing Notes Reviewed: Yes Vital Signs Reviewed: Yes - History of Present Illness HPI Narrative: 67-year-old female with a history of end-stage renal disease who is on dialysis, CAD with CABG, diabetes, hypertension, COPD, hypothyroidism, lung cancer that is in remission who is on 2 L of home oxygen presents from an assisted living facility for falling and hitting the back of her head. Patient states she stood up she does not know what happened but she found the back of her head. Patient states she has fallen a lot recently and she feels generally weak. She says she is currently on an antibiotic for UTI and a double ear infection that she is becoming weaker and weaker and she will she is not getting any better. Patient denies loss of consciousness or any other injury. She Denies any other complaints Pt Subjective Complaint: fall Onset (ago): hour(s) Fall From: standing Fall Witnessed: no Place Fall Occurred: halfway/SNF Loss of Consciousness: none Prolonged Down Time?: no Symptoms Prior to Fall: none Context: unknown Location of injury: head Severity: moderate Severity scale (1-10): 3 Quality: aching Associated symptoms (after fall): Denies: headache, neck pain, numbness, weakness, chest pain, shortness of breath, abdominal pain, hematuria, unable to walk, lightheaded, vertigo, confusion - Related Data Home Medications Medication Instructions Recorded Confirmed Folic Acid 1 mg PO DAILY 07/10/15 10/06/18 Levothyroxine [Synthroid] 50 mcg PO 2000 07/10/15 10/06/18 Pantoprazole Sodium [Protonix] 40 mg PO BID 07/10/15 10/06/18 Docusate [Colace] 100 mg PO BID 10/14/16 10/06/18 Albuterol Sulfate [Proair Hfa] 2 puff IH Q4H PRN 03/17/17 10/06/18 Atorvastatin [Lipitor] 40 mg PO HS 03/17/17 10/06/18 Clopidogrel [Plavix] 75 mg PO DAILY 05/09/17 10/06/18 Sucralfate [Carafate] 1 gm PO 0730,1630 05/09/17 10/06/18 Furosemide [Lasix] 20 mg PO DAILY 03/01/18 10/06/18 Amitriptyline [Elavil] 25 mg PO HS 03/26/18 10/06/18 Ergocalciferol (VITAMIN D2) 50,000 unit PO MO 03/26/18 10/06/18 [Drisdol] Insulin DETEMIR [Levemir] 12 unit SQ 0800 03/26/18 10/06/18 Tamsulosin [Flomax] 0.4 mg PO DAILY 03/26/18 10/06/18 Zolpidem [Ambien] 5 mg PO HS 03/26/18 10/06/18 Lactobacillus Combination No.8 1 cap PO DAILY 05/04/18 10/06/18 [Adult Probiotic] Pramipexole Di-HCl [Pramipexole 0.125 mg PO 05/04/18 10/06/18 Dihydrochloride] Promethazine [Phenergan] 25 mg PO TID PRN 05/04/18 10/06/18 Psyllium Husk [Daily Fiber] 0.52 gm PO DAILY PRN 05/04/18 10/06/18 SUMAtriptan Succinate [Imitrex] 6 mg SQ BID PRN 05/04/18 10/06/18 Baclofen [Lioresal] 10 mg PO TID 07/31/18 10/06/18 Lisinopril [Zestril] 20 mg PO [facility] 07/31/18 10/06/18 Mirtazapine [Remeron] 15 mg PO HS 07/31/18 10/06/18 Insulin DETEMIR [Levemir Flextouch] 14 unit SQ 199908/06/18 10/06/18 Aspirin Enteric Coated [Aspirin EC] 81 mg PO DAILY 09/04/18 10/06/18 Calcium Carbonate [Calcium] 500 mg PO BID 09/04/18 10/06/18 Metoprolol XL (24 HR) Succ [Toprol 12.5 mg PO SUTUTHSA 09/04/18 10/06/18 Xl] Midodrine [ProAmatine] 5 mg PO MOWEFR 09/04/18 10/06/18 Oxybutynin Chloride [Ditropan Xl] 10 mg PO DAILY 09/04/18 10/06/18 Previous Rx's Medication Instructions Recorded OxyCODONE/APAP 5/325 [Percocet 1 tab PO TID PRN 3 Days #9 tablet 09/06/18 5/325 MG] Lidocaine [Lidoderm] 1 each TP BID PRN #14 adh..patch 10/14/18 Ciprofloxacin [Cipro] 500 mg PO BID #14 tablet 10/16/18 metroNIDAZOLE [Flagyl] 500 mg PO BID #20 tablet 10/16/18 Allergies Allergy/AdvReac Type Severity Reaction Status Date / Time adhesive tape Allergy Redness of Verified 10/16/18 08:20 Skin latex Allergy Swelling Verified 10/16/18 08:20 of Lip/Tongue/Throat Sulfa (Sulfonamide Allergy Rash Verified 10/16/18 08:20 Antibiotics) All systems ED: reviewed and negative except as stated. Review of Systems: As Per HPI Constitutional: Denies: fever, chills Eyes: Denies: vision change Cardiovascular: Denies: chest pain, palpitations Respiratory: Denies: cough, dyspnea, wheezes Gastrointestinal: Denies: abdominal pain, nausea, vomiting Neurological: Denies: headache, weakness, numbness, paresthesias, confusion, abnormal gait Fall PMH - Past Medical History Medical history: Reports: arthritis, cancer, coronary artery disease, diabetes, dialysis, GERD, hyperlipidemia, hypertension, myocardial infarction, peripheral artery disease, renal disease, other Surgical history: Reports: appendectomy, cholecystectomy, coronary bypass (CABG), hysterectomy, MONIQUE/BSO, ureteral stent, other Psychiatric history: Reports: anxiety, depression DIRECTOR FINANCIAL PLANNING history: Reports: no DIRECTOR FINANCIAL PLANNING history - Social History Smoking Status: Never smoker Alcohol use: Reports: none Drug use: Reports: none Physical Exam - General Limitations: no limitations General appearance: alert, in no apparent distress - Head Head exam: atraumatic, normocephalic, normal inspection - Eye Eye exam: Present: normal appearance, PERRL, EOMI - ENT ENT exam: mucous membranes moist - Neck Neck exam: Present: normal inspection, full ROM, trachea midline - Chest Chest inspection: Present: normal inspection - Respiratory Respiratory exam: Present: normal lung sounds bilaterally - Cardiovascular Cardiovascular exam: Present: regular rate, normal rhythm, normal heart sounds, systolic murmur - Abdominal Exam Abdominal exam: Present: soft, Non-Tender, normal bowel sounds - Extremities Exam Extremities exam: Present: normal inspection, full ROM. Absent: tenderness, pedal edema - Neurological Exam Neurological exam: Present: alert, oriented X3, CN II-XII intact, motor sensory deficit - Psychiatric Psychiatric exam: Present: normal affect, normal mood - Skin Skin exam: Present: warm, dry, intact, normal color Course Course Narrative: Nontoxic appearing female in no acute distress. Respirations are easy and even. Patient is neurologically intact, GCS 15. She answers all questions appropriately and speaks in full sentences. Palpation of head and neck without step-off, deformity, tenderness. Patient does complain of a headache to the back of her head where she hit. Respirations are easy and even, lungs clear to auscultate. Systolic murmur identified. No obvious signs of trauma. Patient was just here proximal in 24 hours ago for a fall where she had a workup with labs, chest x-ray and head CT, she was sent back to the assisted care facility. Review showing that she did have an elevated BNP and some vascular congestion, she has known end-stage renal disease and was due for dialysis. We will get a head CT and treat pain with plan to return to the assisted living facility. - Reevaluation(s) Reevaluation #1: Patient is a well managed, head CT is returned negative. Labs returned unremarkable from baseline. When I was in discussing this with patient she stated that she is now feeling short of breath and states this is same type of shortness of breath she was feeling when she was here yesterday, she states she does not think she should be able to go back to the assisted living facility. She declined chest pain. Patient has been oxygenating at 98 100% on her home 2 L, she states that she feels like she is using her oxygen more than normal when necessary. Patient has had falls back to back, given new complaints. I do feel patient would benefit from admission for the falls and generalized weakness, shortness of breath. We will repeat chest x-ray, getting new EKG with the plan for admission to the hospital once follows resulted. Patient is agreeable plan. Time: 23:55 Reevaluation #2: Chest x-ray unchanged from previous chest vascular congestion side of CHF, urinalysis without evidence of infection. Patient has told me that she is on Ci pro for an ear infection she is totally she is on a for pneumonia, she is told she is on a for a UTI, unsure why she is on the Cipro but she states she started on . Given patient's previous complaints and reviewing traditionally do believe this is for UTI, I do not appreciate any evidence of any infection, no pneumonia on chest x-ray. Hospitals with patient this time for admission for generalized weakness and multiple falls. Patient continues to be agreeable to plan of care. Time: 01:40 Reevaluation #3: Spoke with hospitalist agreeable with the patient for inpatient admission. Time: 01:50 Vital Signs Temperature 98.1 F 12/02/18 21:39 Pulse Rate 72 12/02/18 21:39 Respiratory Rate 16 12/02/18 21:39 Blood Pressure 147/84 12/02/18 21:39 O2 Sat by Pulse Oximetry 97 12/02/18 21:39 Temperature 97.9 F 12/03/18 01:04 Pulse Rate 69 12/03/18 01:04 Respiratory Rate 22 12/03/18 01:04 Blood Pressure 152/75 12/03/18 01:04 O2 Sat by Pulse Oximetry 100 12/03/18 01:04 Oxygen Delivery Oxygen Delivery Nasal Cannula Fall - Lab Data Result diagrams: 12/02/18 22:38 12/02/18 22:38 Lab Results 12/02/18 12/02/18 12/02/18 Range/Units 22:38 22:38 23:56 WBC 6.2 (4.3-11.1) K/mcL RBC 3.28 L (3.82-4.97) M/mcL Hgb 9.8 L (11.5-15.4) g/dL Hct 31.2 L (35.3-44.9) % MCV 95.1 (83.0-100.0) fL MCH 29.9 (28.0-33.3) pg MCHC 31.4 L (31.6-35.5) g/dL RDW 14.9 H (11.5-14.5) % Plt Count 167 (140-400) K/mcL MPV 10.0 (9.4-12.4) fL Immature Gran % 0.2 (0-4) % Seg Neutrophils % 56.5 % Lymphocytes % 25.7 % Monocytes % 13.4 % Eosinophils % 3.6 % Basophils % 0.6 % Neutrophils # 3.5 (1.6-8.9) K/mcL Lymphocytes # 1.6 (0.6-4.6) K/mcL Monocytes # 0.8 (0.0-1.3) K/mcL Eosinophils # 0.2 (0.0-0.6) K/mcL Basophils # 0.0 (0.0-0.2) K/mcL Sodium 135 L (136-145) mEq/L Potassium 3.8 (3.5-5.1) mEq/L Chloride 99 (98-107) mEq/L Carbon Dioxide 27 (23-29) mEq/L BUN 55 H (8-23) mg/dL Creatinine 3.54 H (0.60-1.20) mg/dL Est GFR ( Amer) 15 L (> 60) Est GFR (Non-Af Amer) 13 L (> 60) BUN/Creatinine Ratio 16 (6-26) Glucose 169 H (70-105) mg/dL Calculated Osmolality 299 (280-300) Calcium 8.7 (8.6-10.3) mg/dL Urine Color Yellow (Yellow) Urine Clarity Turbid A (Clear) Urine pH 6.5 (5.0-8.0) pH Units Ur Specific [place] 1.008 L (1.010-1.025) Urine Protein >=300 H (Neg-Trace) mg/dL Urine Glucose (UA) Normal (Normal) mg/dL Urine Ketones Negative (Negative) mg/dL Urine Blood Moderate H (Negative) Urine Nitrite Negative (Negative) Urine Bilirubin Negative (Negative) Urine Urobilinogen Normal (Normal) mg/dL Ur Leukocyte Esterase Large H (Negative) Urine Microscopic RBC 30-50 H (0-3) per hpf Urine Microscopic WBC TNTC H (0-3) per hpf Ur Squamous Epith Cells Many H (None-Few) per lpf Urine Bacteria Moderate H (None-Few) per hpf Hyaline Casts None Seen (None-Few) per lpf Ur Culture Indicated? NO. A (NO)
[2018-12-03 00:15] LABS: Bilirubin,Urine Negative (Negative); Blood,Urine Moderate (Negative); Clarity,Urine Turbid (Clear); Color,Urine Yellow (Yellow); Glucose,Urine (UA) Normal (Normal); Ketones,Urine Negative (Negative); Leukocyte Esterase,Urine Large (Negative); Nitrite,Urine Negative (Negative); PH,Urine 6.5 pH Units (5.0-8.0); Protein,Urine >=300 mg/dL (Neg-Trace); Specific Gravity,Urine 1.008 (1.010-1.025); Urobilinogen,Urine Normal (Normal)
[2018-12-03 00:17] LABS: Bacteria,Urine Moderate per hpf (None-Few); RBC,Urine 30-50 per hpf (0-3); Squamous Epithelial Cell,Urine Many per lpf (None-Few); WBC,Urine TNTC per hpf (0-3)
[2018-12-03 00:35] LABS: Hyaline Casts,Urine None Seen per lpf (None-Few)
--- NOTE | 2018-12-03 02:24 | Emergency Department Note ---
Disposition Clinical Impression: Weakness generalized Fall Qualifiers: Encounter type: initial encounter Qualified Code(s): W19.XXXA - Unspecified fall, initial encounter Disposition: Admitted As Inpatient Condition: Good General Adult HPI - General Chief complaint: ED Head Injury Stated complaint: Fall Time Seen by Provider: 12/02/18 21:47 Source: patient Mode of arrival: private vehicle Limitations: no limitations Nursing Notes Reviewed: Yes Vital Signs Reviewed: Yes - History of Present Illness Pain Scale: 3 - Related Data Home Medications Medication Instructions Recorded Confirmed Folic Acid 1 mg PO DAILY 07/10/15 10/06/18 Levothyroxine [Synthroid] 50 mcg PO 199907/10/15 10/06/18 Pantoprazole Sodium [Protonix] 40 mg PO BID 07/10/15 10/06/18 Docusate [Colace] 100 mg PO BID 10/14/16 10/06/18 Albuterol Sulfate [Proair Hfa] 2 puff IH Q4H PRN 03/17/17 10/06/18 Atorvastatin [Lipitor] 40 mg PO 03/17/17 10/06/18 Clopidogrel [Plavix] 75 mg PO DAILY 05/09/17 10/06/18 Sucralfate [Carafate] 1 gm PO 0730,1630 05/09/17 10/06/18 Furosemide [Lasix] 20 mg PO DAILY 03/01/18 10/06/18 Amitriptyline [Elavil] 25 mg PO HS 03/26/18 10/06/18 Ergocalciferol (VITAMIN D2) 50,000 unit PO MO 03/26/18 10/06/18 [Drisdol] Insulin DETEMIR [Levemir] 12 unit SQ 0800 03/26/18 10/06/18 Tamsulosin [Flomax] 0.4 mg PO DAILY 03/26/18 10/06/18 Zolpidem [Ambien] 5 mg PO HS 03/26/18 10/06/18 Lactobacillus Combination No.8 1 cap PO DAILY 05/04/18 10/06/18 [Adult Probiotic] Pramipexole Di-HCl [Pramipexole 0.125 mg PO HS 05/04/18 10/06/18 Dihydrochloride] Promethazine [Phenergan] 25 mg PO TID PRN 05/04/18 10/06/18 Psyllium Husk [Daily Fiber] 0.52 gm PO DAILY PRN 05/04/18 10/06/18 SUMAtriptan Succinate [Imitrex] 6 mg SQ BID PRN 05/04/18 10/06/18 Baclofen [Lioresal] 10 mg PO TID 07/31/18 10/06/18 Lisinopril [Zestril] 20 mg PO SUTUTHSA 07/31/18 10/06/18 Mirtazapine [Remeron] 15 mg PO HS 07/31/18 10/06/18 Insulin DETEMIR [Levemir Flextouch] 14 unit SQ 2000 08/06/18 10/06/18 Aspirin Enteric Coated [Aspirin EC] 81 mg PO DAILY 09/04/18 10/06/18 Calcium Carbonate [Calcium] 500 mg PO BID 09/04/18 10/06/18 Metoprolol XL (24 HR) Succ [Toprol 12.5 mg PO SUTUTHSA 09/04/18 10/06/18 Xl] Midodrine [ProAmatine] 5 mg PO MOWEFR 09/04/18 10/06/18 Oxybutynin Chloride [Ditropan Xl] 10 mg PO DAILY 09/04/18 10/06/18 Previous Rx's Medication Instructions Recorded OxyCODONE/APAP 5/325 [Percocet 1 tab PO TID PRN 3 Days #9 tablet 09/06/18 5/325 MG] Lidocaine [Lidoderm] 1 each TP BID PRN #14 adh..patch 10/14/18 Ciprofloxacin [Cipro] 500 mg PO BID #14 tablet 10/16/18 metroNIDAZOLE [Flagyl] 500 mg PO BID #20 tablet 10/16/18 Allergies Allergy/AdvReac Type Severity Reaction Status Date / Time adhesive tape Allergy Redness of Verified 10/16/18 08:20 Skin latex Allergy Swelling Verified 10/16/18 08:20 of Lip/Tongue/Throat Sulfa (Sulfonamide Allergy Rash Verified 10/16/18 08:20 Antibiotics) Constitutional: Denies: fever, chills Eyes: Denies: vision change Cardiovascular: Denies: chest pain, palpitations Respiratory: Denies: cough, dyspnea, wheezes Gastrointestinal: Denies: abdominal pain, nausea, vomiting Neurological: Denies: headache, weakness, numbness, paresthesias, confusion, abnormal gait Past Medical History - Past Medical History Medical history: Reports: arthritis, cancer, coronary artery disease, diabetes, dialysis, GERD, hyperlipidemia, hypertension, myocardial infarction, peripheral artery disease, renal disease, other Surgical history: Reports: appendectomy, cholecystectomy, coronary bypass (CABG), hysterectomy, MONIQUE/BSO, ureteral stent, other Psychiatric history: Reports: anxiety, depression ASSORTER history: Reports: no ASSORTER history - Social History Smoking Status: Never smoker Smokeless Tobacco Status: No Alcohol use: Reports: none Drug use: Reports: none Physical Exam - General Limitations: no limitations General appearance: alert, in no apparent distress Course Vital Signs Temperature 98.1 F 12/02/18 21:39 Pulse Rate 72 12/02/18 21:39 Respiratory Rate 16 12/02/18 21:39 Blood Pressure 147/84 12/02/18 21:39 O2 Sat by Pulse Oximetry 97 12/02/18 21:39 Temperature 97.9 F 12/03/18 01:04 Pulse Rate 69 12/03/18 01:04 Respiratory Rate 22 12/03/18 01:04 Blood Pressure 152/75 12/03/18 01:04 O2 Sat by Pulse Oximetry 100 12/03/18 01:04 Oxygen Delivery Oxygen Delivery Nasal Cannula Medical Decision Making - Medical Records Medical records reviewed: Yes I reviewed the patient's medical records. - Lab Data Lab results reviewed: Yes I reviewed the patient's lab results. Result diagrams: 12/02/18 22:38 12/02/18 22:38 Lab Results 12/02/18 12/02/18 12/02/18 Range/Units 22:38 22:38 23:56 WBC 6.2 (4.3-11.1) K/mcL RBC 3.28 L (3.82-4.97) M/mcL Hgb 9.8 L (11.5-15.4) g/dL Hct 31.2 L (35.3-44.9) % MCV 95.1 (83.0-100.0) fL MCH 29.9 (28.0-33.3) pg MCHC 31.4 L (31.6-35.5) g/dL RDW 14.9 H (11.5-14.5) % Plt Count 167 (140-400) K/mcL MPV 10.0 (9.4-12.4) fL Immature Gran % 0.2 (0-4) % Seg Neutrophils % 56.5 % Lymphocytes % 25.7 % Monocytes % 13.4 % Eosinophils % 3.6 % Basophils % 0.6 % Neutrophils # 3.5 (1.6-8.9) K/mcL Lymphocytes # 1.6 (0.6-4.6) K/mcL Monocytes # 0.8 (0.0-1.3) K/mcL Eosinophils # 0.2 (0.0-0.6) K/mcL Basophils # 0.0 (0.0-0.2) K/mcL Sodium 135 L (136-145) mEq/L Potassium 3.8 (3.5-5.1) mEq/L Chloride 99 (98-107) mEq/L Carbon Dioxide 27 (23-29) mEq/L BUN 55 H (8-23) mg/dL Creatinine 3.54 H (0.60-1.20) mg/dL Est GFR ( Amer) 15 L (> 60) Est GFR (Non-Af Amer) 13 L (> 60) BUN/Creatinine Ratio 16 (6-26) Glucose 169 H (70-105) mg/dL Calculated Osmolality 299 (280-300) Calcium 8.7 (8.6-10.3) mg/dL Urine Color Yellow (Yellow) Urine Clarity Turbid A (Clear) Urine pH 6.5 (5.0-8.0) pH Units Ur Specific [place] 1.008 L (1.010-1.025) Urine Protein >=300 H (Neg-Trace) mg/dL Urine Glucose (UA) Normal (Normal) mg/dL Urine Ketones Negative (Negative) mg/dL Urine Blood Moderate H (Negative) Urine Nitrite Negative (Negative) Urine Bilirubin Negative (Negative) Urine Urobilinogen Normal (Normal) mg/dL Ur Leukocyte Esterase Large H (Negative) Urine Microscopic RBC 30-50 H (0-3) per hpf Urine Microscopic WBC TNTC H (0-3) per hpf Ur Squamous Epith Cells Many H (None-Few) per lpf Urine Bacteria Moderate H (None-Few) per hpf Hyaline Casts None Seen (None-Few) per lpf Ur Culture Indicated? NO. A (NO) - Radiology Data Radiology results reviewed: Yes I reviewed the patient's radiology results. Head CT 12/02/18 22:27 IMPRESSION: No acute intracranial abnormality. D/ / Conner Rubio MD / Conner Rubio MD Interpreting Provider: Conner Rubio MD Chest X-Ray 12/03/18 00:05 IMPRESSION: In this patient with CHF, there is mild pulmonary edema with no significant change from recent prior exam. D/ / Arnold Alston MD / Arnold Alston MD Interpreting Provider: Arnold Alston MD - EKG Data EKG #1 EKG attestation: Yes I reviewed and interpreted this EKG. EKG results narrative: EKG shows normal sinus rhythm with ventricular rate is 70. No ST segment elevation or depression. No arrhythmia or ectopy. Attestation Statement - Attestation Attestation: I, All Wallace MD, personally evaluated this patient and discussed their management with the midlevel provicer, PAC/BEAD TRIMMER. I reviewed the midlevel provider's note and agree with the documented findings, medical decision making, and plan of care. 67-year-old female who resides alone in assisted living facility presents to the emergency department after complaining of a fall. She states she just fell backwards and hit the back of her head. She did not trip. She did not pass out. She does not know what made her fall. This patient was just seen here 48 hours ago for a fall and had a workup at that time including head CT. On examination patient is a well-developed well-nourished elderly female in no acute distress. She is alert and oriented 3. No cyanosis or diaphoresis. Some tenderness over the occipital scalp. Neck is supple with full range of motion. Breath sounds are clear and equal bilaterally. Heart regular. Abdomen soft and nontender. Labs reviewed. EKG shows normal sinus rhythm with no acute ischemic changes. Chest x-ray shows mild CHF but unchanged from previous. Head CT negative. The hospitalist, Dr. Goodman, was consulted and accepted admission of the makeda jean.
[2018-12-03] MEDS ORDERED: Naloxone 0.4 MG/ML INJ IVP PRN (02:38)
--- NOTE | 2018-12-03 02:38 | Internal Med History&Physical ---
Date of Encounter: 12/03/18 Time of Encounter: 02:38 Internal Medicine - H&P: HPI Chief complaint: Fall/Weakness History of present illness: Ms. Dan is a 67 year old female with a past medical history of end-stage renal disease on dialysis, coronary artery disease status post CABG, diabetes, hypertension, hyperlipidemia, thyroid disease, lung cancer in remission anxiety and depression who presents from her nursing facility after a mechanical fall. Patient states that she was sitting in her chair, took off her oxygen to stand when she lost her balance and fell backwards. Patient struck her head and was subsequently brought into the ED. Patient denies any dizziness or lightheadedness prior to her fall. Denies any loss of consciousness. Patient states she simply lost her balance. Of note, patient was seen in the ED 48 hours prior for a similar fall where she states that she lost her balance. Patient was fully worked up including a CT scan of the head and cervical spine which showed no fracture. Chest x-ray did show some pulmonary vascular conges tion. Patient is currently on dialysis Tuesday and Tuesday. She states she is also being treated for an ear infection and UTI with antibiotics. Repeat imaging of the head was unremarkable. No acute evidence of an infection. Laboratory workup also was unremarkable. EKG showed no acute ischemic changes. Patient was to be discharged back to her facility however stated that she did not feel comfortable returning given her recurrent falls. Past Med Surg Social Fam HX - Past Medical History Medical history: arthritis, cancer, coronary artery disease, diabetes, dialysis, GERD, hyperlipidemia, hypertension, myocardial infarction, peripheral artery disease, renal disease, other Additional medical history: neuropathy, insomnia Psychiatric history: anxiety, depression - Past Surgical History Surgical History: appendectomy, cholecystectomy, coronary bypass (CABG), hysterectomy, MONIQUE/BSO, ureteral stent, other Additional surgical history: egd/colonoscopy, tonsilectomy, renal stents - Social History Smoking Status: Never smoker Smokeless Tobacco Status: No Alcohol use: none Drug use: none - Family History Mother Living Status: Hx Family Endocrine Disorder: (DM) Father Adopted: No Hx Family Cardiac Disorders: Yes ("heart troubles") Hx Family Cancer: Yes (Prostate cancer) Hx Family Endocrine Disorder: Yes (DM) Brother Hx Family Cardiac Disorders: Yes (CAD) Hx Family Cancer: Yes (lung cancer) Internal Medicine - H&P: Meds Folic Acid 1 mg PO DAILY 07/10/15 [History] Levothyroxine [Synthroid] 50 mcg PO 199907/10/15 [History] Pantoprazole Sodium [Protonix] 40 mg PO BID 07/10/15 [History] Docusate [Colace] 100 mg PO BID 10/14/16 [History] Albuterol Sulfate [Proair Hfa] 2 puff IH Q4H PRN 03/17/17 [History] Atorvastatin [Lipitor] 40 mg PO HS 03/17/17 [History] Clopidogrel [Plavix] 75 mg PO DAILY 05/09/17 [History] Sucralfate [Carafate] 1 gm PO 0730,1630 05/09/17 [History] Furosemide [Lasix] 20 mg PO DAILY 03/01/18 [History] Amitriptyline [Elavil] 25 mg PO HS 03/26/18 [History] Ergocalciferol (VITAMIN D2) [Drisdol] 50,000 unit PO MO 03/26/18 [History] Insulin DETEMIR [Levemir] 12 unit SQ 0800 03/26/18 [History] Tamsulosin [Flomax] 0.4 mg PO DAILY 03/26/18 [History] Zolpidem [Ambien] 5 mg PO HS 03/26/18 [History] Lactobacillus Combination No.8 [Adult Probiotic] 1 cap PO DAILY 05/04/18 [History] Pramipexole Di-HCl [Pramipexole Dihydrochloride] 0.125 mg PO HS 05/04/18 [History] Promethazine [Phenergan] 25 mg PO TID PRN 05/04/18 [History] Psyllium Husk [Daily Fiber] 0.52 gm PO DAILY PRN 05/04/18 [History] SUMAtriptan Succinate [Imitrex] 6 mg SQ BID PRN 05/04/18 [History] Baclofen [Lioresal] 10 mg PO TID 07/31/18 [History] Lisinopril [Zestril] 20 mg PO SUTUTHSA 07/31/18 [History] Mirtazapine [Remeron] 15 mg PO HS 07/31/18 [History] Insulin DETEMIR [Levemir Flextouch] 14 unit SQ 199908/06/18 [History] Aspirin Enteric Coated [Aspirin EC] 81 mg PO DAILY 09/04/18 [History] Calcium Carbonate [Calcium] 500 mg PO BID 09/04/18 [History] Metoprolol XL (24 HR) Succ [Toprol Xl] 12.5 mg PO SUTUTHSA 09/04/18 [History] Midodrine [ProAmatine] 5 mg PO MOWEFR 09/04/18 [History] Oxybutynin Chloride [Ditropan Xl] 10 mg PO DAILY 09/04/18 [History] OxyCODONE/APAP 5/325 [Percocet 5/325 MG] 1 tab PO TID PRN 3 Days #9 tablet 09/06/18 [Rx] Lidocaine [Lidoderm] 1 each TP BID PRN #14 adh..patch 10/14/18 [Rx] Ciprofloxacin [Cipro] 500 mg PO BID #14 tablet 10/16/18 [Rx] metroNIDAZOLE [Flagyl] 500 mg PO BID #20 tablet 10/16/18 [Rx] Allergy/AdvReac Type Severity Reaction Status Date / Time adhesive tape Allergy Redness of Verified 10/16/18 08:20 Skin latex Allergy Swelling Verified 10/16/18 08:20 of Lip/Tongue/Throat Sulfa (Sulfonamide Allergy Rash Verified 10/16/18 08:20 Antibiotics) All Systems PM: A 10-system review of systems was performed and is negative for pertinent findings except as documented above in the HPI. - Constitutional Constitutional: no chills, no fever(s), no night sweats - EENT Eyes: no change in vision, no discharge, no pain, no photophobia Ears: no ear discharge, no ear pain, no tinnitus Nose, mouth and throat: no dysphagia, no nasal discharge, no neck pain, no sore throat - Cardiovascular Cardiovascular ROS IM: no chest pain, no diaphoresis, no dyspnea, no lightheadedness, no palpitations, no syncope - Respiratory Respiratory: no cough, no dyspnea, no wheezing, no excessive phlegm production - Gastrointestinal Gastrointestinal: no abdominal pain, no diarrhea, no hematemesis, no hematochezia, no melena, no nausea, no vomiting - Genitourinary Genitourinary: no change in urinary stream, no dysuria, no flank pain, no hematuria - Musculoskeletal Musculoskeletal ROS IM: no numbness, no tingling - Integumentary Integumentary IM: no rash, no unusual bruising - Neurological Neurological ROS: no confusion, no convulsions, no focal weakness, no numbness, no tingling, no tremor(s) - Hematologic/Lymphatic Hematologic/Lymphatic: no easy bruising - Constitutional Vitals: Temp Pulse Resp BP Pulse Ox 97.9 F 69 22 152/75 100 12/03/18 01:04 12/03/18 01:04 12/03/18 01:04 12/03/18 01:04 12/03/18 01:04 Exam: General: Alert and oriented 3 sitting upright in bed in no acute distress Skin:Normal color, no rash, no lesions. HEENT:EOM, pupils equal, round and reactive. Cardiovascular:Normal S1 & S2, no rubs, murmurs or gallops. No JVD. Pulse regular. Lungs:Normal breath sounds, no wheezes or crackles. Abdomen:Soft, non-tender, no rigidity. Extremities:No deformity, no edema or tenderness, no joint swelling or clubbing. Neurological:Normal cognition and motor skills. Muscle strength in the upper and lower extremities 4 out of 5 bilaterally Pulses:Carotid and radial pulses normal +2. Rest of the physical exam is non contributory Internal Med - H&P Results - Labs CBC & Chem 7: 12/02/18 22:38 12/02/18 22:38 Labs: Short CBC 12/02/18 Range/Units 22:38 WBC 6.2 (4.3-11.1) K/mcL Hgb 9.8 L (11.5-15.4) g/dL Hct 31.2 L (35.3-44.9) % Plt Count 167 (140-400) K/mcL Neutrophils # 3.5 (1.6-8.9) K/mcL BMP 12/02/18 22:38 Sodium 135 L Potassium 3.8 Chloride 99 Carbon Dioxide 27 BUN 55 H Creatinine 3.54 H Glucose 169 H Calcium 8.7 Urine 12/02/18 Range/Units 23:56 Urine Color Yellow (Yellow) Urine Clarity Turbid A (Clear) Urine pH 6.5 (5.0-8.0) pH Units Ur Specific [place] 1.008 L (1.010-1.025) Urine Protein >=300 H (Neg-Trace) mg/dL Urine Glucose (UA) Normal (Normal) mg/dL - Impressions ITS Impressions Head CT 12/02/18 22:27 IMPRESSION: No acute intracranial abnormality. D/ / Conner Rubio MD / Conner Rubio MD Interpreting Provider: Conner Rubio MD Chest X-Ray 12/03/18 00:05 IMPRESSION: In this patient with CHF, there is mild pulmonary edema with no significant change from recent prior exam. D/ / Arnold Alston MD / Arnold Alston MD Interpreting Provider: Arnold Alston MD - Assessment and plan (1) Fall Current Visit: Yes Status: Acute Assessment and plan: Patient reports fall due to loss of balance. Denies any loss of consciousness. Patient was seen 2 days ago for similar presentation. CT scan of her head was unremarkable. Lower extremity muscle strength equal bilaterally no significant weakness. Does not appear to be any metabolic derangements or infectious etiology to explain her symptoms. She has no focal deficits on physical examination. Suspect likely due to deconditioning. -We will obtain physical therapy consult. Patient may benefit from outpatient physical therapy as well. 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 She states she is on ciprofloxacin for both a UTI and urine infection to which her previous cultures Klebsiella, were resistant to. Patient does not have any systemic signs of infection nor does she endorse any symptoms to suggest a acute cystitis. At this time, given patient is asymptomatic would not continue treatment. Qualifiers: Urinary tract infection type: acute cystitis Hematuria presence: with hematuria Qualified Code(s): N30.01 - Acute cystitis with hematuria (3) Diabetes mellitus type 2 in nonobese Current Visit: No Status: Acute Assessment and plan: Sliding scale insulin Accu-Cheks 3 times a day before meals Diabetic diet (4) ESRD (end stage renal disease) Current Visit: No Status: Acute Assessment and plan: End-stage renal disease on hemodialysis Tuesday, Tuesday, Tuesday. Low suspicion for any volume overload at this time. Consider nephrology consult if patient to stay into Tuesday or requiring more emergent dialysis. (5) CAD (coronary artery disease) Current Visit: No Status: Chronic Assessment and plan: History of coronary artery disease status post CABG. No reports of chest pain. Stable. -And any with statin, aspirin, Plavix, beta danette and RICHARDSON inhibitor. Qualifiers: Coronary Disease-Associated Artery/Lesion type: bypass graft [place] vs. transplanted heart: [place] heart Associated angina: without angina Qualified Code(s): I25.810 - Atherosclerosis of coronary artery bypass graft(s) without angina pectoris (6) DVT prophylaxis Current Visit: No Status: Acute Assessment and plan: Subcutaneous heparin - Time Spent With Patient Total time spent is greater than 50% in coordination of care (as documented) at patient's floor/unit and/or counseling patient:
[2018-12-03] MEDS ORDERED: *HR* Dextrose 50 % in Water (Syg) 50 ML SYRINGE IVP PRN (04:47)
[2018-12-03] MEDS ORDERED: D5% in Water 1,000 ML IVC PRN (04:47)
[2018-12-03] MEDS ORDERED: Dextrose Gel 15 GM/37.5 ML TUBE PO PRN ×2 (04:47)
[2018-12-03] MEDS: *HR* Heparin 5,000 UNIT/ML VIAL SQ SCH ×3 (06:43→22:15)
[2018-12-03] MEDS: Insulin LISPRO 300 UNITS/3 ML VIAL SQ SCH ×3 (10:19→17:46)
[2018-12-03 10:31] LABS: Basophils % 0.7 %; Eosinophils # 0.3 K/mcL (0.0-0.6); Eosinophils % 4.3 %; Hematocrit 32.5 % (35.3-44.9); Hemoglobin 10.1 g/dL (11.5-15.4); Immature Granulocytes % 0.3 % (0-4); Lymphocytes # 1.1 K/mcL (0.6-4.6); Lymphocytes % 19.6 %; Mean Corpuscular HGB Conc 31.1 g/dL (31.6-35.5); Mean Corpuscular Hemoglobin 29.7 pg (28.0-33.3); Mean Corpuscular Volume 95.6 fL (83.0-100.0); Mean Platelet Volume 10.7 fL (9.4-12.4); Monocytes # 0.7 K/mcL (0.0-1.3); Monocytes % 11.2 %; Neutrophils # 3.7 K/mcL (1.6-8.9); Platelet Count 181 K/mcL (140-400); Segmented Neutrophils % 63.9 %
[2018-12-03 17:35] LABS: Calcium 8.9 mg/dL (8.6-10.3); Potassium 5.1 mEq/L (3.5-5.1)
[2018-12-03] MEDS ORDERED: Acetaminophen 325 MG TABLET PO ONE (20:17)
[2018-12-03] MEDS: Insulin DETEMIR 100 UNIT/ML X5UNITS SQ SCH (22:17)
[2018-12-04] MEDS: *HR* Heparin 5,000 UNIT/ML VIAL SQ SCH ×3 (06:02→21:53)
[2018-12-04] MEDS ORDERED: 0.9 % Sodium Chloride 250 ML IVC PRN (07:15)
[2018-12-04] MEDS ORDERED: 0.9 % Sodium Chloride 1,000 ML PRIME SCH (07:15)
[2018-12-04] MEDS: Insulin LISPRO 300 UNITS/3 ML VIAL SQ SCH ×4 (07:40→21:10)
[2018-12-04 07:52] LABS: Basophils % 0.4 %; Eosinophils # 0.2 K/mcL (0.0-0.6); Eosinophils % 2.9 %; Hematocrit 33.2 % (35.3-44.9); Hemoglobin 10.6 g/dL (11.5-15.4); Immature Granulocytes % 0.2 % (0-4); Lymphocytes % 19.7 %; Mean Corpuscular HGB Conc 31.9 g/dL (31.6-35.5); Mean Corpuscular Volume 94.1 fL (83.0-100.0); Mean Platelet Volume 10.4 fL (9.4-12.4); Monocytes # 0.6 K/mcL (0.0-1.3); Monocytes % 11.9 %; Neutrophils # 3.4 K/mcL (1.6-8.9); Platelet Count 183 K/mcL (140-400); Red Blood Count 3.53 M/mcL (3.82-4.97); Red Cell Distribution Width 15.7 % (11.5-14.5); Segmented Neutrophils % 64.9 %
[2018-12-04] MEDS ORDERED: 0.9 % Sodium Chloride 2,000 ML ONE (07:57)
[2018-12-04 08:05] LABS: Calcium 8.9 mg/dL (8.6-10.3); Potassium 4.7 mEq/L (3.5-5.1)
--- NOTE | 2018-12-04 11:46 | Nephrology Consult Note ---
Addendum entered and electronically signed by Bonilla Sierra DO 12/05/18 07:37: I have personally performed a face to face evaluation on this patient. I have reviewed and agree with the care plan. History and Exam by me shows: ESRD on HD MWF and due for HD today. Next HD would be due on Tuesday. Thank you for consulting the [facility]. Additionally this addendum will also serve a Dialysis Note: She was s/e during her HD treatment and she tolerated the blood flows and BPs. Original Note: Date of Encounter: 12/04/18 Time of Encounter: 11:34 Assessment and Plan (1) ESRD (end stage renal disease) Current Visit: No Status: Acute Current regimen is MWF [facility]. HD in progress for today Renal diet Renal vitamins Strict I/O Avoid nephrotoxins and renal dose all medications. (2) Fall Current Visit: Yes Status: Acute Per primary. Qualifiers: Encounter type: initial encounter Qualified Code(s): W19.XXXA - Unspecified fall, initial encounter (3) Weakness generalized Current Visit: Yes Status: Acute Consider PT/OT. History of Present Illness - Reason for Consult Consult date: 12/04/18 end stage renal disease Requesting physician: Trent Lai - Chief Complaint s/p fall - History of Present Illness Ms. Dan is a 67 year old female who presented to the ED status post fall at her assisted living. PMH: Lung cancer (in remission) diabetes, GERD, hypertension, HLD. ESRD, current regimen Tuesday at [facility]. Has not missed any sessions. Reports she fell twice on Tuesday once in the morning and once in the evening, the one in the evening is where she fell back and hit her head. She denies LOC or precipitating events or symptoms. She has lived in a fpc in the past but is not interested in returning would like to stay in her assisted living. [facility] were consult it to manage inpatient hemodialysis. Hemodialysis in progress for today. She does live at home alone in the assisted living facility. She is not a current smoker and denies illicit drug use or EtOH. Past Med Surg Social Fam HX - Past Medical History Medical history: arthritis, cancer, coronary artery disease, diabetes, dialysis, GERD, hyperlipidemia, hypertension, myocardial infarction, peripheral artery disease, renal disease, other Additional medical history: neuropathy, insomnia Psychiatric history: anxiety, depression - Past Surgical History Surgical History: appendectomy, cholecystectomy, coronary bypass (CABG), hysterectomy, MONIQUE/BSO, ureteral stent, other Additional surgical history: egd/colonoscopy, tonsilectomy, renal stents - Social History Smoking Status: Never smoker Smokeless Tobacco Status: No Alcohol use: none Drug use: none - Family History Mother Living Status: Hx Family Endocrine Disorder: (DM) Father Adopted: No Hx Family Cardiac Disorders: Yes ("heart troubles") Hx Family Cancer: Yes (Prostate cancer) Hx Family Endocrine Disorder: Yes (DM) Brother Hx Family Cardiac Disorders: Yes (CAD) Hx Family Cancer: Yes (lung cancer) Medications and Allergies Folic Acid 1 mg PO DAILY 07/10/15 [History] Levothyroxine [Synthroid] 50 mcg PO 199907/10/15 [History] Pantoprazole Sodium [Protonix] 40 mg PO BID 07/10/15 [History] Docusate [Colace] 100 mg PO BID 10/14/16 [History] Albuterol Sulfate [Proair Hfa] 2 puff IH Q4H PRN 03/17/17 [History] Atorvastatin [Lipitor] 40 mg PO HS 03/17/17 [History] Clopidogrel [Plavix] 75 mg PO DAILY 05/09/17 [History] Sucralfate [Carafate] 1 gm PO 0730,1630 05/09/17 [History] Furosemide [Lasix] 20 mg PO DAILY 03/01/18 [History] Amitriptyline [Elavil] 25 mg PO HS 03/26/18 [History] Ergocalciferol (VITAMIN D2) [Drisdol] 50,000 unit PO MO 03/26/18 [History] Insulin DETEMIR [Levemir] 12 unit SQ 0800 03/26/18 [History] Tamsulosin [Flomax] 0.4 mg PO DAILY 03/26/18 [History] Zolpidem [Ambien] 5 mg PO HS 03/26/18 [History] Lactobacillus Combination No.8 [Adult Probiotic] 1 cap PO DAILY 05/04/18 [ History] Pramipexole Di-HCl [Pramipexole Dihydrochloride] 0.125 mg PO HS 05/04/18 [History] Promethazine [Phenergan] 25 mg PO TID PRN 05/04/18 [History] Psyllium Husk [Daily Fiber] 0.52 gm PO DAILY PRN 05/04/18 [History] SUMAtriptan Succinate [Imitrex] 6 mg SQ BID PRN 05/04/18 [History] Baclofen [Lioresal] 10 mg PO TID 07/31/18 [History] Lisinopril [[facility]est[facility]] [facility] 07/31/[facility] [History] Mirtazapine [Remeron] 15 mg PO 07/31/18 [History] Insulin DETEMIR [Levemir Flextouch] 14 unit SQ 2000 08/06/18 [History] Aspirin Enteric Coated [Aspirin EC] 81 mg PO DAILY 09/04/18 [History] Calcium Carbonate [Calcium] 500 mg PO BID 09/04/18 [History] Metoprolol XL (24 HR) Succ [Toprol Xl] 12.5 mg PO SUTUTHSA 09/04/18 [History] Midodrine [ProAmatine] 5 mg PO MOWEFR 09/04/18 [History] Oxybutynin Chloride [Ditropan Xl] 10 mg PO DAILY 09/04/18 [History] OxyCODONE/APAP 5/325 [Percocet 5/325 MG] 1 tab PO TID PRN 3 Days #9 tablet 09/06/18 [Rx] Lidocaine [Lidoderm] 1 each TP BID PRN #14 adh..patch 10/14/18 [Rx] Ciprofloxacin [Cipro] 500 mg PO BID #14 tablet 10/16/18 [Rx] metroNIDAZOLE [Flagyl] 500 mg PO BID #20 tablet 10/16/18 [Rx] Allergy/AdvReac Type Severity Reaction Status Date / Time adhesive tape Allergy Redness of Verified 10/16/18 08:20 Skin latex Allergy Swelling Verified 10/16/18 08:20 of Lip/Tongue/Throat Sulfa (Sulfonamide Allergy Rash Verified 10/16/18 08:20 Antibiotics) Review of Systems All Systems review (narrative): The remainder of the systems are negative. Constitutional: fatigue, no chills, no fever(s) Cardiovascular: dyspnea, edema, no chest pain Respiratory: no cough Gastrointestinal: diarrhea, nausea, vomiting, no abdominal pain Exam - Vital Signs Vital signs: Initial Vital Signs Temp Pulse Resp BP Pulse Ox 98.1 F 72 16 147/84 97 12/02/18 21:39 12/02/18 21:39 12/02/18 21:39 12/02/18 21:39 12/02/18 21:39 Vital Signs - Last 8 Hours Temp Pulse Resp BP Pulse Ox 12/04/18 08:30 97.8 F 16 149/72 12/04/18 07:07 98.1 F 72 16 185/72 100 12/04/18 05:34 98.2 F 73 16 171/71 97 Intake and Output 12/03/18 12/04/18 12/04/18 23:59 07:59 15:59 Intake Total 840 / 840 Output Total 200 / 200 Balance -200 / -200 840 / 840 Intake: Oral 240 / 240 Intake, Rinseback and Flushes 600 / 600 Output: Urine 200 / 200 Other: Meal Breakfast Percent of Meal Consumed 100% Stool Size Small Moderate Stool Consistency formed formed Stool Color Brown Brown # Bowel Movements 3 Blood Glucose* 228 130 Hemodialysis Net Fluid Removed 0 (mL) - General Appearance General appearance: well-developed, well-nourished EENT: ATNC, hearing intact, vision intact Neck: supple Respiratory: clear Cardiology: edema, normal S1, normal S2 Additional Comments: +1 pitting edema noted to bilateral lower extremities. - Dialysis Access Dialysis Vascular Access: Arteriovenous Fistula thrill: Yes bruit: Yes Gastrointestinal: normoactive bowel sounds, no tenderness, no guarding Integumentary: no rash, warm and dry Neurologic: alert and oriented x3 Musculoskeletal: no deformities, no erythema Psychiatric: mood/affect appropriate, cooperative Results - Lab Results 12/04/18 07:31 12/04/18 07:31 Most recent lab results Calcium 8.9 mg/dL (8.6-10.3) 12/04/18 07:31 Consult Discharge Plan - Plan Referrals: NONE,PCP [Primary Care Provider] -
[2018-12-04] MEDS: Insulin DETEMIR 100 UNIT/ML X5UNITS SQ SCH (21:53)
[2018-12-04] MEDS: Ondansetron 4 MG/2 ML VIAL IVP PRN (23:34)
[2018-12-05] MEDS ORDERED: Psyllium 1 PACKET POWD.PACK PO PRN (02:44)
[2018-12-05] MEDS ORDERED: *HR* OxyCODONE/APAP 5/325 TABLET PO PRN (02:44)
[2018-12-05] MEDS ORDERED: SUMAtriptan 6 MG/0.5 ML SQ PRN (02:44)
--- NOTE | 2018-12-05 02:59 | Internal Med Progress Note ---
Hospitalist Progress Note - Encounter Date of Encounter: 12/04/18 Time of Encounter: 19:00 - Subjective Interval History: SUBJECTIVE: The patient feels pretty good. She got hemodialysis today. She feels weak. She has not started physical therapy yet. Denies chest pain. Denies difficulty breathing. She is basically on room air her oxygen. He has abdominal pain, nausea and vomiting. She is end-stage renal disease. OBJECTIVE: Skin: Free of rash and discoloration. ENMT: Oral/pharyngeal mucosa is normal in appearance. Eyes: Sclera is white. There is no discharge from eyes. Respiratory: Normal breath sounds; no crackles or wheezes. CV: Heart is regular; no gallop or murmur. GI: Abdomen is soft and not tender. There is no palpable mass or visceromegaly. Neuro: There is no focal deficits. ADDITIONAL DATA: Fingersticks for glucose from today are 134, 130 and 215. CBC shows hemoglobin of 10.6 with normal WBC/platelet count. Electrolytes are normal. Creatinine is 4.11 (end-stage renal disease). ASSESSMENT AND PLAN: Falls. Likely multifactorial. We have to treat her urinary tract infection (assuming that she has one). Will have to work for her conditioning. Physical therapy has been ordered. Urinary tract infection. See changes in urine. Urine culture is pending. 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 We will use that medication. Type 2 diabetes mellitus with ESRD. Under fair control. To continue Levemir with when necessary Humalog. Hypertensive renal disease with ESRD. On hemodialysis. Blood pressure is out of control. We need to restart her home medications. CAD. Stable. To continue previous medications. - Exam Vitals: Temp Pulse Resp BP Pulse Ox 99.7 F H 76 16 154/63 96 12/04/18 23:30 12/04/18 23:30 12/04/18 23:30 12/04/18 23:30 12/04/18 23:30 Exam: xx - Assessment and Plan (1) Fall Current Visit: Yes Status: Acute (2) UTI (urinary tract infection) Current Visit: Yes Status: Acute (3) Type 2 diabetes mellitus Current Visit: Yes Status: Chronic (4) Hypertensive kidney disease with ESRD on dialysis Current Visit: Yes Status: Acute (5) ESRD (end stage renal disease) Current Visit: Yes Status: Chronic (6) CAD (coronary artery disease) Current Visit: Yes Status: Chronic - Time Spent with Patient Total time spent is greater than 50% in coordination of care (as documented) at patient's floor/unit and/or counseling patient: 25 - 35 minutes Plan of Care Discussed with: patient Internal Medicine: Result - Labs CBC & Chem 7: 12/04/18 07:31 12/04/18 07:31 Labs: Short CBC 12/04/18 Range/Units 07:31 WBC 5.2 (4.3-11.1) K/mcL Hgb 10.6 L (11.5-15.4) g/dL Hct 33.2 L (35.3-44.9) % Plt Count 183 (140-400) K/mcL Neutrophils # 3.4 (1.6-8.9) K/mcL BMP 12/04/18 07:31 Sodium 137 Potassium 4.7 Chloride 106 Carbon Dioxide 21 L BUN 80 H Creatinine 4.11 H Glucose 159 H Calcium 8.9 Consult Discharge Plan - Plan Referrals: NONE,PCP [Primary Care Provider] - (1) Fall Qualifiers: Encounter type: subsequent encounter Qualified Code(s): W19.XXXD - Unspecified fall, subsequent encounter (2) UTI (urinary tract infection) Qualifiers: Urinary tract infection type: acute cystitis Hematuria presence: without hematuria Qualified Code(s): N30.00 - Acute cystitis without hematuria (3) Type 2 diabetes mellitus Qualifiers: 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 transplanted heart: [place] heart Associated angina: without angina Qualified Code(s): I25.810 - Atherosclerosis of coronary artery bypass graft(s) without angina pectoris
[2018-12-05] MEDS ORDERED: Ipratropium/Albuterol Neb 3 ML IH PRN (03:04)
[2018-12-05 06:23] LABS: Basophils % 0.6 %; Eosinophils # 0.2 K/mcL (0.0-0.6); Eosinophils % 3.1 %; Hematocrit 31.2 % (35.3-44.9); Hemoglobin 10.1 g/dL (11.5-15.4); Immature Granulocytes % 1.5 % (0-4); Lymphocytes # 1.2 K/mcL (0.6-4.6); Lymphocytes % 18.6 %; Mean Corpuscular HGB Conc 32.4 g/dL (31.6-35.5); Mean Corpuscular Hemoglobin 30.1 pg (28.0-33.3); Mean Corpuscular Volume 92.9 fL (83.0-100.0); Mean Platelet Volume 10.8 fL (9.4-12.4); Monocytes # 0.7 K/mcL (0.0-1.3); Monocytes % 10.5 %; Neutrophils # 4.1 K/mcL (1.6-8.9); Nucleated Red Blood Cells 0.5 /100 WBC (0); Platelet Count 175 K/mcL (140-400); Red Blood Count 3.36 M/mcL (3.82-4.97); Red Cell Distribution Width 15.6 % (11.5-14.5); Segmented Neutrophils % 65.7 %
[2018-12-05 06:35] LABS: Calcium 8.3 mg/dL (8.6-10.3)
[2018-12-05] MEDS: *HR* Heparin 5,000 UNIT/ML VIAL SQ SCH ×3 (06:51→22:14)
[2018-12-05] MEDS: Ondansetron 4 MG/2 ML VIAL IVP PRN ×2 (08:25→17:08)
[2018-12-05] MEDS: Furosemide 20 MG TABLET PO SCH (08:46)
[2018-12-05] MEDS: Baclofen 10 MG TABLET PO SCH ×3 (08:46→22:18)
[2018-12-05] MEDS: Folic Acid 1 MG TABLET PO SCH (08:46)
[2018-12-05] MEDS: Insulin LISPRO 300 UNITS/3 ML VIAL SQ SCH ×4 (08:46→22:51)
[2018-12-05] MEDS: Sucralfate 1 GM TABLET PO SCH ×2 (08:46→14:42)
[2018-12-05] MEDS: Aspirin Enteric Coated 81 MG Tablet PO SCH (08:46)
[2018-12-05] MEDS ORDERED: Lisinopril 20 MG TABLET PO SCH (09:00)
[2018-12-05] MEDS ORDERED: Metoprolol XL (24 HR) Succ 25 MG TAB.ER.24H PO SCH (09:00)
--- NOTE | 2018-12-05 09:40 | Nephrology Progress Note ---
Addendum entered and electronically signed by Bonilla Sierra DO 12/06/18 08:11: I have personally performed a face to face evaluation on this patient. I have reviewed and agree with the care plan. History and Exam by me shows: ESRD. Pt c/o N/V. Next HD due for Tuesday. Original Note: Date of Encounter: 12/05/18 Time of Encounter: 09:38 - Assessment and Plan (1) ESRD (end stage renal disease) Current Visit: Yes Status: Chronic Current regimen is MWF Jd Luu. HD completed yesterday. Plan for HD tomorrow. Renal diet Renal vitamins Strict I/O Avoid nephrotoxins and renal dose all medications. (2) Fall Current Visit: Yes Status: Acute Per primary. Qualifiers: Encounter type: subsequent encounter Qualified Code(s): W19.XXXD - Uns pecified fall, subsequent encounter (3) Weakness generalized Current Visit: Yes Status: Acute Consider PT/OT. (4) Nausea Current Visit: Yes Status: Acute Continue supportive care for nausea. Per primary. Subjective Principal diagnosis: s/p fall Interval history: Patient seen and examined. Admits to not feeling very well today is nauseated without emesis. Denies diarrhea. Denies chest pain or shortness of breath. No acute events overnight. No HD indicated for today. Objective - Vital Signs Vital signs: Vital Signs Temp Pulse Resp BP Pulse Ox 12/05/18 08:36 99.0 F 77 16 138/60 91 12/05/18 03:40 98.7 F 80 16 148/64 96 12/04/18 23:30 99.7 F H 76 16 154/63 96 12/04/18 19:20 98.5 F 71 16 178/56 99 12/04/18 15:55 98.1 F 74 16 181/65 92 12/04/18 12:22 97.9 F 18 147/77 12/04/18 12:00 141/81 12/04/18 11:45 160/76 12/04/18 11:30 172/82 12/04/18 11:15 159/80 12/04/18 11:00 164/81 12/04/18 10:45 178/72 12/04/18 10:30 166/82 12/04/18 10:15 163/87 12/04/18 10:00 178/80 12/04/18 09:45 178/80 Intake and Output 12/04/18 12/05/18 12/05/18 23:59 07:59 15:59 Intake Total 240 / 240 Balance 240 / 240 Intake: Oral 240 / 240 Other: Meal Breakfast Percent of Meal Consumed 95% Blood Glucose* 183 144 - General Appearance General appearance: Present: well-developed, well-nourished EENT: Present: ATNC, hearing intact, vision intact Neck: Present: supple Respiratory: Present: clear Cardiology: Present: edema (Trace bilat lower exremity edema.), normal S1, normal S2 Dialysis Vascular Access: Arteriovenous Fistula thrill: Yes bruit: Yes Gastrointestinal: Present: normoactive bowel sounds, no tenderness, no guarding Integumentary: Present: no rash, warm and dry Neurologic: Present: no focal deficit, alert and oriented x3 Musculoskeletal: Present: no deformities, no erythema Psychiatric: Present: mood/affect appropriate, cooperative - Lab 12/05/18 05:31 12/05/18 05:31 Most recent lab results Calcium 8.3 mg/dL (8.6-10.3) L 12/05/18 05:31 Consult Discharge Plan - Plan Referrals: NONE,PCP [Primary Care Provider] -
[2018-12-05] MEDS ORDERED: Mirtazapine 15 MG TABLET PO SCH (21:00)
[2018-12-06] MEDS: Insulin DETEMIR 100 UNIT/ML X5UNITS SQ SCH (01:07)
--- NOTE | 2018-12-06 03:00 | Internal Med Progress Note ---
Hospitalist Progress Note - Encounter Date of Encounter: 12/05/18 Time of Encounter: 19:00 - Subjective Interval History: SUBJECTIVE: The patient feels pretty good. She got hemodialysis yesterday. Weak. Able to ambulate with assistance. Denies chest pain. Denies difficulty breathing. She is on room air oxygen. Denies abdominal pain, nausea and vomiting. She is ESRD. OBJECTIVE: Skin: Free of rash and discoloration. ENMT: Oral/pharyngeal mucosa is normal in appearance. Eyes: Sclera is white. There is no discharge from eyes. Respiratory: Normal breath sounds; no crackles or wheezes. CV: Heart is regular; no gallop or murmur. GI: Abdomen is soft and not tender. There is no palpable mass or visceromegaly. Neuro: There is no focal deficits. ADDITIONAL DATA: CBC shows hemoglobin of 10.1 with a normal WBC/platelet count. Electrolytes are normal. Creatinine is 3.17 (ESRD). Fingersticks were glucose from today are 144, 109 and 137. ASSESSMENT AND PLAN: Falls. Likely multifactorial. We have to treat her urinary tract infection (as suming that she has one). We have to work for her conditioning. Physical therapy has been ordered. Urinary tract infection. See changes in urine. Urine culture is pending. 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 We started it yesterday. Type 2 diabetes mellitus with ESRD. Under fair control. To continue Levemir with when necessary Humalog. Hypertensive renal disease with ESRD. On hemodialysis. Her blood pressure is under better control, after we started her home medications. To continue Toprol-XL and lisinopril. CAD. Stable. On Toprol-XL, lisinopril, Lipitor and aspirin/Plavix. Disposition: She lives at assisted living facility before this hospitalization. She will need to go to [facility] to get her conditioning and IV ertapenem (for a total of 2 weeks). - Exam Vitals: Temp Pulse Resp BP Pulse Ox 99.6 F 71 16 135/69 96 12/06/18 00:26 12/06/18 00:26 12/06/18 00:26 12/06/18 00:26 12/06/18 00:26 Exam: xx - Assessment and Plan (1) Fall Current Visit: Yes Status: Acute (2) UTI (urinary tract infection) Current Visit: Yes Status: Acute (3) Type 2 diabetes mellitus Current Visit: Yes Status: Chronic (4) Hypertensive kidney disease with ESRD on dialysis Current Visit: Yes Status: Acute (5) ESRD (end stage renal disease) Current Visit: Yes Status: Chronic (6) CAD (coronary artery disease) Current Visit: Yes Status: Chronic - Time Spent with Patient Total time spent is greater than 50% in coordination of care (as documented) at patient's floor/unit and/or counseling patient: 25 - 35 minutes Plan of Care Discussed with: patient Internal Medicine: Result - Labs CBC & Chem 7: 12/05/18 05:31 12/05/18 05:31 Labs: Short CBC 12/05/18 Range/Units 05:31 WBC 6.2 (4.3-11.1) K/mcL Hgb 10.1 L (11.5-15.4) g/dL Hct 31.2 L (35.3-44.9) % Plt Count 175 (140-400) K/mcL Neutrophils # 4.1 (1.6-8.9) K/mcL BMP 12/05/18 05:31 Sodium 137 Potassium 5.0 Chloride 101 Carbon Dioxide 27 BUN 43 H Creatinine 3.17 H Glucose 146 H Calcium 8.3 L Consult Discharge Plan - Plan Referrals: NONE,PCP [Primary Care Provider] - (1) Fall Qualifiers: Encounter type: subsequent encounter Qualified Code(s): W19.XXXD - Unspecified fall, subsequent encounter (2) UTI (urinary tract infection) Qualifiers: Urinary tract infection type: acute cystitis Hematuria presence: without hematuria Qualified Code(s): N30.00 - Acute cystitis without hematuria (3) Type 2 diabetes mellitus Qualifiers: Diabetes mellitus longterm insulin use: with intermodal customer service use Diabetes mellitus complication status: with kidney complications Diabetes mellitus complication detail: with chronic kidney disease Chronic kidney disease stage: on chronic dialysis Qualified Code(s): E11.22 - Type 2 diabetes mellitus with diabetic chronic kidney disease; N18.6 - End stage renal disease; Z79.4 - buttermaker continuous churn (current) use of insulin; Z99.2 - Dependence on renal dialysis (6) CAD (coronary artery disease) Qualifiers: Coronary Disease-Associated Artery/Lesion type: bypass graft [place] vs. transplanted heart: [place] heart Associated angina: without angina Qualified Code(s): I25.810 - Atherosclerosis of coronary artery bypass graft(s) without angina pectoris
[2018-12-06] MEDS: *HR* Heparin 5,000 UNIT/ML VIAL SQ SCH ×2 (06:12→15:40)
[2018-12-06 06:37] LABS: Basophils % 0.3 %; Eosinophils # 0.1 K/mcL (0.0-0.6); Eosinophils % 1.2 %; Hematocrit 31.6 % (35.3-44.9); Immature Granulocytes % 0.3 % (0-4); Lymphocytes # 0.9 K/mcL (0.6-4.6); Lymphocytes % 12.4 %; Mean Corpuscular HGB Conc 31.6 g/dL (31.6-35.5); Mean Corpuscular Hemoglobin 29.9 pg (28.0-33.3); Mean Corpuscular Volume 94.3 fL (83.0-100.0); Mean Platelet Volume 10.6 fL (9.4-12.4); Monocytes # 0.7 K/mcL (0.0-1.3); Monocytes % 10.4 %; Neutrophils # 5.2 K/mcL (1.6-8.9); Platelet Count 168 K/mcL (140-400); Red Blood Count 3.35 M/mcL (3.82-4.97); Red Cell Distribution Width 15.3 % (11.5-14.5); Segmented Neutrophils % 75.4 %
[2018-12-06 06:58] LABS: Calcium 8.4 mg/dL (8.6-10.3); Potassium 5.2 mEq/L (3.5-5.1)
[2018-12-06] MEDS: Sucralfate 1 GM TABLET PO SCH ×2 (07:49→15:41)
[2018-12-06] MEDS: Folic Acid 1 MG TABLET PO SCH (07:50)
[2018-12-06] MEDS: Baclofen 10 MG TABLET PO SCH ×2 (07:50→15:40)
[2018-12-06] MEDS: Aspirin Enteric Coated 81 MG Tablet PO SCH (07:51)
[2018-12-06] MEDS: Furosemide 20 MG TABLET PO SCH (07:53)
[2018-12-06] MEDS: Insulin LISPRO 300 UNITS/3 ML VIAL SQ SCH ×3 (07:54→15:41)
[2018-12-06] MEDS: Ondansetron 4 MG/2 ML VIAL IVP PRN (08:00)
--- NOTE | 2018-12-06 09:24 | Nephrology Progress Note ---
Date of Encounter: 12/06/18 Time of Encounter: 09:22 - Assessment and Plan (1) ESRD (end stage renal disease) Current Visit: Yes Status: Chronic Current regimen is MWShanti Luu. HD planned for today. Renal diet Renal vitamins Strict I/O Avoid nephrotoxins and renal dose all medications. (2) Fall Current Visit: Yes Status: Acute Per primary. Qualifiers: Encounter type: subsequent encounter Qualified Code(s): W19.XXXD - Unspecified fall, subsequent encounter (3) Weakness generalized Current Visit: Yes Status: Acute Consider PT/OT. (4) Nausea Current Visit: Yes Status: Acute Continue supportive care for nausea. Per primary. (5) Anemia Current Visit: Yes Status: Acute Goal Hgb is 10-11. Hgb is 10 today, stable. Qualifiers: Qualified Code(s): D64.9 - Anemia, unspecified Subjective Principal diagnosis: s/p fall Interval history: Patient seen and examined. Admits she is not feeling very well. Still nauseated.Is up to BSC with nursing staff. Tripp chest pain or shortness of breath. No acute events overnight. Plan for HD today. Objective - Vital Signs Vital signs: Vital Signs Temp Pulse Resp BP Pulse Ox 12/06/18 07:09 98.0 F 64 18 155/70 99 12/06/18 05:13 98.9 F 67 18 143/60 99 12/06/18 00:26 99.6 F 71 16 135/69 96 12/05/18 22:42 95 12/05/18 21:50 99.4 F 74 16 130/55 95 12/05/18 15:44 99.1 F 70 16 135/63 90 12/05/18 10:37 99.3 F 72 17 153/65 91 Intake and Output 12/05/18 12/06/18 12/06/18 23:59 07:59 15:59 Intake Total 100 / 100 0 / 0 Output Total 300 / 300 Balance 100 / 100 -300 / -300 Intake: IV Fluids 100 / 100 INVanz 500 MG In 0.9 % Sodium 100 / 100 Chloride 100 ML @ 100 mls/hr IVPB Q24H [id number] Rx#:[id number] Oral 0 / 0 Output: Urine 300 / 300 Other: Meal Breakfast Percent of Meal Consumed 0% # Voids 1 Blood Glucose* 132 129 - General Appearance General appearance: Present: well-developed, well-nourished EENT: Present: ATNC, hearing intact, vision intact Neck: Present: supple Respiratory: Present: clear Cardiology: Present: no edema, normal S1, normal S2 Dialysis Vascular Access: Arteriovenous Fistula thrill: Yes bruit: Yes Gastrointestinal: Present: normoactive bowel sounds, no tenderness, no guarding Integumentary: Present: no rash, warm and dry Neurologic: Present: alert and oriented x3 Musculoskeletal: Present: no deformities, no erythema Psychiatric: Present: mood/affect appropriate, cooperative - Lab 12/06/18 05:36 12/06/18 05:36 Most recent lab results Calcium 8.4 mg/dL (8.6-10.3) L 12/06/18 05:36 Consult Discharge Plan - Plan Referrals: NONE,PCP [Primary Care Provider] -
--- NOTE | 2018-12-06 15:19 | Internal Med Progress Note ---
Hospitalist Progress Note - Encounter Date of Encounter: 12/06/18 Time of Encounter: 10:45 - Subjective Interval History: patient also was getting dialyzed. Complains of nausea. Denies any chest pain or palpitations. No fever or chills reported overnight. Awaiting placement to skilled rehabilitation. - Exam Vitals: Temp Pulse Resp BP Pulse Ox 97.3 F L 64 18 129/54 99 12/06/18 13:21 12/06/18 07:09 12/06/18 13:21 12/06/18 13:21 12/06/18 07:09 Exam: General: Patient is alert, mild distress, oriented x 3 ENT: Mucous membranes moist Respiratory: Good respiratory effort. Normal breath sounds. No wheezing or crackles. Cardiovascular: Regular rate and rhythm. s1 and s2 normal No clicks, rubs, gallops, or murmurs. No pedal edema Abdomen: Abdomen is soft, nontender. Bowel sounds are present Musculoskeletal: Spontaneously moving all extremities Skin: warm, dry, intact. Neuro: Alert oriented x 3 normal cranial nerves, no focal deficits - Assessment and Plan (1) UTI (urinary tract infection) Current Visit: Yes Status: Acute Assessment and Plan: Patient is currently on ertapenem. Unfortunately cultures had not been sent prior to starting antibiotics. Patient has previously had Klebsiella MDRO. Complete 10 day antibiotic course with ertapenem. (2) ESRD (end stage renal disease) Current Visit: Yes Status: Chronic Assessment and Plan: Patient receiving dialysis today. Will continue per nephrology recommendations (3) CAD (coronary artery disease) Current Visit: Yes Status: Chronic Assessment and Plan: Continue aspirin, statin and Toprol (4) Fall Current Visit: Yes Status: Acute Assessment and Plan: Recurrent falls. Evaluated by physical therapy and recommended placement to skilled rehabilitation. Patient will be discharged from his bed available (5) Type 2 diabetes mellitus Current Visit: Yes Status: Chronic Assessment and Plan: Blood sugars are well controlled. (6) Hypertensive kidney disease with ESRD on dialysis Current Visit: Yes Status: Acute Assessment and Plan: blood pressure is well controlled DVT Prophylaxis: On subcutaneous heparin - Time Spent with Patient Total time spent is greater than 50% in coordination of care (as documented) at patient's floor/unit and/or counseling patient: Internal Medicine: Result - Labs CBC & Chem 7: 12/06/18 05:36 12/06/18 05:36 Labs: Short CBC 12/06/18 Range/Units 05:36 WBC 6.9 (4.3-11.1) K/mcL Hgb 10.0 L (11.5-15.4) g/dL Hct 31.6 L (35.3-44.9) % Plt Count 168 (140-400) K/mcL Neutrophils # 5.2 (1.6-8.9) K/mcL BMP 12/06/18 05:36 Sodium 136 Potassium 5.2 H Chloride 101 Carbon Dioxide 23 BUN 56 H Creatinine 4.11 H Glucose 141 H Calcium 8.4 L Consult Discharge Plan - Plan Referrals: NONE,PCP [Primary Care Provider] - (1) UTI (urinary tract infection) Qualifiers: Urinary tract infection type: acute cystitis Hematuria presence: without hematuria Qualified Code(s): N30.00 - Acute cystitis without hematuria (3) CAD (coronary artery disease) Qualifiers: Coronary Disease-Associated Artery/Lesion type: bypass graft [place] vs. transplanted heart: [place] heart Associated angina: without angina Qualified Code(s): I25.810 - Atherosclerosis of coronary artery bypass graft(s) without angina pectoris (4) Fall Qualifiers: Encounter type: subsequent encounter Qualified Code(s): W19.XXXD - Unspec ified fall, subsequent encounter (5) Type 2 diabetes mellitus Qualifiers: Diabetes mellitus oil heaterman insulin use: with care home use Diabetes mellitus complication status: with kidney complications Diabetes mellitus complication detail: with chronic kidney disease Chronic kidney disease stage: on chronic dialysis Qualified Code(s): E11.22 - Type 2 diabetes mellitus with diabetic chronic kidney disease; N18.6 - End stage renal disease; Z79.4 - termite control technician (current) use of insulin; Z99.2 - Dependence on renal dialysis
--- NOTE | 2018-12-06 15:33 | Discharge Summary ---
- NOTES TO OUTPATIENT PROVIDER Notes to Outpatient Provider: Patient with a history of coronary artery disease, diabetes, end-stage renal disease on hemodialysis, hypertension was hospitalized here after a mechanical fall. She was evaluated in the ER and diagnosed with acute UTI. Patient reported that she also had fallen [address] scan of the head was done which was negative. Patient was evaluated by physical therapy and recommended placement to skilled rehabilitation. Patient's urine was not sent for culture and so we are treating her empirically. She did have Klebsiella multidrug resistant organism in the past and so she will complete a course of IV ertapenem for 10 days total. She is clinically stable to be di scharged at this time. Orders not resulted at time of discharge: Pending orders 12/07/18 04:00 Basic Metabolic Panel AM 0400 CBC [Complete Blood Count] [HEME] AM 0400 12/08/18 04:00 Basic Metabolic Panel AM 0400 CBC [Complete Blood Count] [HEME] AM 0400 12/09/18 04:00 Basic Metabolic Panel AM 0400 CBC [Complete Blood Count] [HEME] AM 0400 12/10/18 04:00 Basic Metabolic Panel AM 0400 CBC [Complete Blood Count] [HEME] AM 0400 12/11/18 04:00 Basic Metabolic Panel AM 0400 CBC [Complete Blood Count] [HEME] AM 0400 Date of Encounter: 12/06/18 Time of Encounter: 15:31 - Discharge Diagnosis (1) Fall Priority: Primary Status: Acute Qualifiers: Encounter type: subsequent encounter Qualified Code(s): W19.XXXD - Unspecified fall, subsequent encounter (2) UTI (urinary tract infection) Priority: Secondary Status: Acute Qualifiers: Urinary tract infection type: acute cystitis Hematuria presence: without hematuria Qualified Code(s): N30.00 - Acute cystitis without hematuria (3) ESRD (end stage renal disease) Priority: Secondary Status: Chronic (4) CAD (coronary artery disease) Priority: Secondary Status: Chronic Qualifiers: Coronary Disease-Associated Artery/Lesion type: bypass graft [place] vs. transplanted heart: [place] heart Associated angina: without angina Qualified Code(s): I25.810 - Atherosclerosis of coronary artery bypass graft(s) without angina pectoris (5) Type 2 diabetes mellitus Priority: Secondary Status: Chronic Qualifiers: Diabetes mellitus exterminator insulin use: with exterminator use Diabetes mellitus complication status: with kidney complications Diabetes mellitus complication detail: with chronic kidney disease Chronic kidney disease stage: on chronic dialysis Qualified Code(s): E11.22 - Type 2 diabetes mellitus with diabetic chronic kidney disease; N18.6 - End stage renal disease; Z79.4 - joint terminal attack controller (current) use of insulin; Z99.2 - Dependence on renal dialysis (6) Hypertensive kidney disease with ESRD on dialysis Priority: Secondary Status: Acute Hospital course: Ms. Dan is a 67 year old female Patient with a history of coronary artery disease, diabetes, end-stage renal disease on hemodialysis, hypertension was hospitalized here after a mechanical fall. She was evaluated in the ER and diagnosed with acute UTI. Patient reported that she also had fallen [address] scan of the head was done which was negative. Patient was evaluated by physical therapy and recommended placement to skilled rehabilitation. Patient's urine was not sent for culture and so we are treating her empirically. She did have Klebsiella multidrug resistant organism in the past and so she will complete a course of IV ertapenem for 10 days total. She is clinically stable to be discharged at this time. Discharge discussed with: patient, nurse, case management - Time Spent with Patient Total time spent providing and/or coordinating discharge services: Greater than 30 minutes (50 min) - Discharge Medications Prescriptions: Ertapenem [INVanz] 500 mg IVPB DAILY #7 vial Zolpidem [Ambien] 5 mg PO HS PRN 5 Days #5 tablet PRN Reason: Insomnia Home Medications: Folic Acid 1 mg PO DAILY 07/10/15 [History] Levothyroxine [Synthroid] 50 mcg PO 199907/10/15 [History] Pantoprazole Sodium [Protonix] 40 mg PO 0730,16307/10/15 [History] Docusate [Colace] 100 mg PO BID 10/14/16 [History] Albuterol Sulfate [Proair Hfa] 2 puff IH Q4H PRN 03/17/17 [History] Atorvastatin [Lipitor] 40 mg PO HS 03/17/17 [History] Clopidogrel [Plavix] 75 mg PO DAILY 05/09/17 [History] Sucralfate [Carafate] 1 gm PO 0730,1630 05/09/17 [History] Furosemide [Lasix] 20 mg PO DAILY 03/01/18 [History] Amitriptyline [Elavil] 25 mg PO HS 03/26/18 [History] Ergocalciferol (VITAMIN D2) [Drisdol] 50,000 unit PO MO 03/26/18 [History] Insulin DETEMIR [Levemir] 12 unit SQ QAM 03/26/18 [History] Tamsulosin [Flomax] 0.4 mg PO DAILY 03/26/18 [History] Lactobacillus Combination No.8 [Adult Probiotic] 1 cap PO DAILY 05/04/18 [Histor y] Pramipexole Di-HCl [Pramipexole Dihydrochloride] 0.125 mg PO HS 05/04/18 [History] Promethazine [Phenergan] 25 mg PO TID PRN 05/04/18 [History] Psyllium Husk [Daily Fiber] 1 packet PO DAILY PRN 05/04/18 [History] SUMAtriptan Succinate [Imitrex] 6 mg SQ BID PRN 05/04/18 [History] Baclofen [Lioresal] 10 mg PO TID 07/31/18 [History] Lisinopril [Zestril] 20 mg PO SUTUTHSA@0900 07/31/18 [History] Mirtazapine [Remeron] 15 mg PO HS 07/31/18 [History] Insulin DETEMIR [Levemir Flextouch] 14 unit SQ HS 08/06/18 [History] Aspirin Enteric Coated [Aspirin EC] 81 mg PO DAILY 09/04/18 [History] Calcium Carbonate [Calcium] 500 mg PO BID 09/04/18 [History] Metoprolol XL (24 HR) Succ [Toprol Xl] 12.5 mg PO SUTUTHSA@0900 09/04/18 [History] Midodrine [ProAmatine] 5 mg PO MOWEFR@0900 09/04/18 [History] Oxybutynin Chloride [Ditropan Xl] 10 mg PO DAILY 09/04/18 [History] Ertapenem [INVanz] 500 mg IVPB DAILY #7 vial 12/06/18 [Rx] Zolpidem [Ambien] 5 mg PO HS PRN 5 Days #5 tablet 12/06/18 [Rx] Allergies/Adverse Reactions: Allergy/AdvReac Type Severity Reaction Status Date / Time adhesive tape Allergy Redness of Verified 12/17/18 08:20 Skin latex Allergy Swelling Verified 10/16/18 08:20 of Lip/Tongue/Throat Sulfa (Sulfonamide Allergy Rash Verified 10/16/18 08:20 Antibiotics) Date of admission: 12/03/18 02:00 Primary care physician: PCP NONE Consults: 12/03/18 02:39 Consult to Physical Therapy [CONS] Routine Comment: Evaluate, develop and implement POC Reason for Consult: Weakness/Falls Does patient have active BEDREST order?: Yes Is patient medically & hemodynamically stable?: Yes 12/04/18 07:15 Consult to Dialysis [CONS] QMWF 12/04/18 07:53 Consult to Nephrology [CONS] Routine Consulting Provider: Kidney Julianne/FLORENTIN/KIERRA/PEACE Reason for Consult: ESRD; needs hd on /w/ Time Notified: 07:50 Call Completed: Yes 12/04/18 14:41 Consult to Nurse Navigator [CONS] Routine Comment: hd 12/05/18 14:13 Consult to Pattern Cleaner [CONS] Routine Reason for SW Consult: needs ecf 12/06/18 07:15 Consult to Dialysis [CONS] QMWF 12/08/18 07:15 Consult to Dialysis [CONS] QMWF Discharging clinician: Alex Guerrero Anticipated date of discharge: 12/06/18 - Constitutional Vitals: Temp Pulse Resp BP Pulse Ox 97.3 F L 64 18 129/54 99 12/06/18 13:21 12/06/18 07:09 12/06/18 13:21 12/06/18 13:21 12/06/18 07:09 General appearance: Present: cooperative, A&O X 3, answers questions appropriately Exam: . - Respiratory Respiratory exam: Present: CTAB. Absent: accessory muscle use, rales, rhonchi, wheezes - Cardiovascular Cardiovascular exam: Present: RRR, +S1, +S2. Absent: diastolic murmur, gallop, rubs, systolic murmur - GI/Abdominal GI/Abdominal exam: Present: normal bowel sounds, soft, no peritoneal signs. Absent: distended, tenderness - Patient Status Disposition: Transfer SNF Condition: Good Functional capacity at discharge: wheelchair bound Overall status at discharge: patient is progressing back to baseline - Discharge Instructions Instructions: Fall Prevention (DC) Follow Up With: NONE,PCP [Primary Care Provider] - - Diet and Activity Activity: as per physical therapy Diet: advance to your usual diet, diabetic diet, low fat, low cholesterol, low salt diet
[2018-12-06 15:39] VITALS: BP 132/62
--- NOTE | 2018-12-06 16:40 | Physician Discharge Referral ---
ExtendedCare Referral Info Provider in Charge after Transfer: PCP Institutional Level of Care: Skilled - Diagnosis (1) Fall Priority: Primary Status: Acute (2) UTI (urinary tract infection) Priority: Secondary Status: Acute (3) ESRD (end stage renal disease) Priority: Secondary Status: Chronic (4) CAD (coronary artery disease) Priority: Secondary Status: Chronic (5) Type 2 diabetes mellitus Priority: Secondary Status: Chronic (6) Hypertensive kidney disease with ESRD on dialysis Priority: Secondary Status: Acute Prognosis: Fair Aware of Diagnosis: Patient Aware of Prognosis: Patient - Transfer Medications Prescriptions: Ertapenem [INVanz] 500 mg IVPB DAILY #7 vial Zolpidem [Ambien] 5 mg PO HS PRN 5 Days #5 tablet PRN Reason: Insomnia Home Medications: Folic Acid 1 mg PO DAILY 07/10/15 [History] Levothyroxine [Synthroid] 50 mcg PO 199907/10/15 [History] Pantoprazole Sodium [Protonix] 40 mg PO 0730,1630 07/10/15 [History] Docusate [Colace] 100 mg PO BID 10/14/16 [History] Albuterol Sulfate [Proair Hfa] 2 puff IH Q4H PRN 03/17/17 [History] Atorvastatin [Lipitor] 40 mg PO HS 03/17/17 [History] Clopidogrel [Plavix] 75 mg PO DAILY 05/09/17 [History] Sucralfate [Carafate] 1 gm PO 0730,1630 05/09/17 [History] Furosemide [Lasix] 20 mg PO DAILY 03/01/18 [History] Amitriptyline [Elavil] 25 mg PO HS 03/26/18 [History] Ergocalciferol (VITAMIN D2) [Drisdol] 50,000 unit PO MO 03/26/18 [History] Insulin DETEMIR [Levemir] 12 unit SQ QAM 03/26/18 [History] Tamsulosin [Flomax] 0.4 mg PO DAILY 03/26/18 [History] Lactobacillus Combination No.8 [Adult Probiotic] 1 cap PO DAILY 05/04/18 [History] Pramipexole Di-HCl [Pramipexole Dihydrochloride] 0.125 mg PO HS 05/04/18 [History] Promethazine [Phenergan] 25 mg PO TID PRN 05/04/18 [History] Psyllium Husk [Daily Fiber] 1 packet PO DAILY PRN 05/04/18 [History] SUMAtriptan Succinate [Imitrex] 6 mg SQ BID PRN 05/04/18 [History] Baclofen [Lioresal] 10 mg PO TID 07/31/18 [History] Lisinopril [Zestril] 20 mg PO SUTUTHSA@0900 07/31/18 [History] Mirtazapine [Remeron] 15 mg PO HS 07/31/18 [History] Insulin DETEMIR [Levemir Flextouch] 14 unit SQ HS 08/06/18 [History] Aspirin Enteric Coated [Aspirin EC] 81 mg PO DAILY 09/04/18 [History] Calcium Carbonate [Calcium] 500 mg PO BID 09/04/18 [History] Metoprolol XL (24 HR) Succ [Toprol Xl] 12.5 mg PO SUTUTHSA@0900 09/04/18 [History] Midodrine [ProAmatine] 5 mg PO MOWEFR@0900 09/04/18 [History] Oxybutynin Chloride [Ditropan Xl] 10 mg PO DAILY 09/04/18 [History] Ertapenem [INVanz] 500 mg IVPB DAILY #7 vial 12/06/18 [Rx] Zolpidem [Ambien] 5 mg PO HS PRN 5 Days #5 tablet 12/06/18 [Rx] Allergies/Adverse Reactions: Allergy/AdvReac Type Severity Reaction Status Date / Time adhesive tape Allergy Redness of Verified 10/16/18 08:20 Skin latex Allergy Swelling Verified 10/16/18 08:20 of Lip/Tongue/Throat Sulfa (Sulfonamide Allergy Rash Verified 10/16/18 08:20 Antibiotics) - Respiratory Orders Oxygen / L per min (Sats greater than 88%) Smoking Cessation: Smoking cessation has been advised. For more information, call the [place] [employer] Quit Line at 6-170-QRDA-NOW. - Advance Directives Code Status: Full Code - Mobility Orders Other (per PT) - Rehabiliation Orders Rehab Potential: Fair Rehab Orders: Evaluation for Physical Therapy, Evaluation for Occupational Therapy - Diet Orders No Concentrated Sweets (Diabetic), Cardiac CERTIFICATION: I certify that the transfer of the above named patient to an Extended Care Facility is necessary for the continuing treatment of the diagnosis listed. The above information is true and accurate reflection of patient's current condition. Confidential - Redisclosure prohibited without a patient's written consent.
--- NOTE | 2018-12-08 08:56 | Electrocardiograph Report ---
[place] [facility] Test Date: 2018-12-03 Pat Name: Alaina Dan Department: [id number] Room: 2A44 Gender: F Interlacer: : 1950 Requested By: Phyllis Smallwood Order Number: [id number] Reading MD: Juan Mancilla Measurements Intervals [place] Rate: 70 P: SD: QRS: 32 QRSD: 110 T: 88 QT: 420 QTc: 454 Interpretive Statements sinus rhythm nsst changes Electronically Signed On 12-08-2018 8:55:07 EST by Juan Mancilla
== END 2018-12-06 17:50 ==
LOC: EMEROOARM 21:26 → 2ANU 21:26 → SUATTDRO 12-03 02:00 → 2ANU 12-03 02:41
PROVIDERS: ADMIT Internal Medicine; ATTEND Internal Medicine

== ENCOUNTER 2019-07-03 12:28 | Inpatient (IN) ==
[2019-07-03] MEDS ORDERED: 0.9 % Sodium Chloride 1,000 ML IVC ONE (13:04)
--- NOTE | 2019-07-03 13:09 | Emergency Department Note ---
Disposition Clinical Impression: UTI (urinary tract infection) Qualifiers: Urinary tract infection type: site unspecified Hematuria presence: without hematuria Qualified Code(s): N39.0 - Urinary tract infection, site not specified Sepsis Qualifiers: Sepsis type: sepsis due to unspecified organism Sepsis acute organ dysfunction status: without acute organ dysfunction Qualified Code(s): A41.9 - Sepsis, unspecified organism Disposition: Admitted As Inpatient Referrals: Jozef Sahu MD [Primary Care Provider] - Forms: ED Satisfaction Letter Time of Disposition: 15:24 General Adult HPI - General Chief complaint: ED Fever Stated complaint: wheezing Time Seen by Provider: 07/03/19 12:55 Source: patient, EMS Mode of arrival: EMS Limitations: no limitations Nursing Notes Reviewed: Yes Vital Signs Reviewed: Yes - History of Present Illness HPI Narrative: 68F with PMHx of DM, CAD with double bypass, CKD on dialysis but still producing urine, PAD, HTN and HLD presents to the ED with complaints of abdominal pain and generally not feeling well. Pt states she has developed a fever and begun wheezing starting yesterday after dialysis and she has been having "rib pain" since this time as well. Pt states she had Dialysis yesterday and completed it. She was brought in from [facility] due to her fever and when EMS arrived the pt was soaked in foul smelling urine. Pain Scale: 10 - Related Data Home Medications Medication Instructions Recorded Confirmed Folic Acid 1 mg PO DAILY 07/10/15 05/17/19 Levothyroxine [Synthroid] 50 mcg PO DAILY 07/10/15 05/17/19 Pantoprazole Sodium [Protonix] 40 mg PO BID 07/10/15 05/17/19 Atorvastatin [Lipitor] 40 mg PO HS 03/17/17 05/17/19 Clopidogrel [Plavix] 75 mg PO DAILY 05/09/17 05/17/19 Sucralfate [Carafate] 1 gm PO BID 05/09/17 05/17/19 Furosemide [Lasix] 20 mg PO DAILY 03/01/18 05/17/19 Amitriptyline [Elavil] 25 mg PO HS 03/26/18 05/17/19 Ergocalciferol (VITAMIN D2) 50,000 unit PO MO 03/26/18 05/17/19 [Drisdol] Insulin DETEMIR [Levemir] 12 unit SQ QAM 03/26/18 05/17/19 Tamsulosin [Flomax] 0.4 mg PO DAILY 03/26/18 05/17/19 Lisinopril [Zestril] 20 mg PO SUTUTHSA 07/31/18 05/17/19 Mirtazapine [Remeron] 7.5 mg PO HS 07/31/18 05/17/19 Insulin DETEMIR [Levemir Flextouch] 14 unit SQ 08/06/18 05/17/19 Aspirin Enteric Coated [Aspirin EC] 81 mg PO DAILY 09/04/18 05/17/19 Calcium Carbonate [Calcium] 500 mg PO BID 09/04/18 05/17/19 Midodrine [ProAmatine] 5 mg PO MOWEFR 09/04/18 05/17/19 Oxybutynin Chloride [Ditropan XL] 10 mg PO DAILY 09/04/18 05/17/19 Albuterol Sulfate [Proventil 2 puff IH Q4H PRN 12/13/18 05/17/19 Inhaler] Metoprolol [Lopressor] 12.5 mg PO SUTUTHSA 12/13/18 05/17/19 Ondansetron HCl [Zofran] 4 mg PO Q8H PRN 12/13/18 05/17/19 RisperiDONE [Risperdal] 0.5 mg PO BID 12/13/18 05/17/19 Ropinirole HCl [Requip] 0.25 mg PO 12/13/18 05/17/19 Benzonatate [Tessalon] 200 mg PO TID PRN 01/29/19 05/17/19 Guaifenesin [Mucinex] 600 mg PO Q12H 01/29/19 05/17/19 Insulin Regular, Human [Novolin R] 8 unit IJ TIDWM 01/29/19 05/17/19 Meclizine [Antivert] 25 mg PO TID 01/29/19 05/17/19 Acetaminophen [Tylenol 8 Hour] 650 mg PO Q8H PRN 05/17/19 05/17/19 B Complex W-C No.20/Folic Acid 1 mg PO DAILY 05/17/19 05/17/19 [Virt-Caps Softgel] Benzonatate [Tessalon] 200 mg PO TID PRN 05/17/19 05/17/19 Ergocalciferol (VITAMIN D2) 400 unit PO DAILY 05/17/19 05/17/19 [Vitamin D] GuaiFENesin/Dextromethorphan 118 ml PO QID PRN 05/17/19 05/17/19 [Tussin Dm Cough Syrup] Guaifenesin/Codeine Phosphate 5 ml PO Q4-6H PRN 05/17/19 05/17/19 [Guaifen-Codeine 100-10 mg/5 ml] Ipratropium/Albuterol Sulfate 3 ml IH QID PRN 05/17/19 05/17/19 [Iprat-Albut 0.5-3(2.5) mg/3 ml] Trazodone HCl 50 mg PO HS 05/17/19 05/17/19 Allergies Allergy/AdvReac Type Severity Reaction Status Date / Time latex Allergy Rash Verified 05/17/19 12:19 Sulfa (Sulfonamide Allergy Rash Verified 05/17/19 12:19 Antibiotics) adhesive tape AdvReac "RIPPED Verified 05/17/19 12:19 SKIN OFF" All systems ED: reviewed and negative except as stated. Review of Systems: As Per HPI Constitutional: Reports: fever, weakness Eyes: Reports: eye discharge ENT ED: Denies: throat pain Cardiovascular: Reports: chest pain, dyspnea on exertion. Denies: palpitations Respiratory: Reports: cough. Denies: dyspnea, wheezes Gastrointestinal: Reports: abdominal pain, nausea. Denies: vomiting, diarrhea Genitourinary: Reports: frequency. Denies: dysuria, hematuria, discharge Integumentary: Denies: rash Endocrine: Reports: fatigue Past Medical History - Past Medical History Attestation: Yes The following information was validated with the patient. Source: patient Medical history: Reports: arthritis, cancer, coronary artery disease, diabetes, dialysis, GERD, hyperlipidemia, hypertension, myocardial infarction, peripheral artery disease, renal disease, other Surgical history: Reports: appendectomy, cholecystectomy, coronary bypass (CABG), hysterectomy, MONIQUE/BSO, ureteral stent, other Psychiatric history: Reports: anxiety, depression MANAGER WIND history: Reports: no MANAGER WIND history - Social History Smoking Status: Never smoker Smokeless Tobacco Status: No Alcohol use: Reports: none Drug use: Reports: none Physical Exam - General Limitations: no limitations General appearance: alert, in distress - Head Head exam: atraumatic, normocephalic - Eye Eye exam: Present: EOMI, conjunctival injection, other (bilateral yellow eye discharge) - Chest Chest inspection: Present: normal inspection. Absent: tenderness, rash - Respiratory Respiratory exam: Present: normal lung sounds bilaterally, accessory muscle use. Absent: wheezes - Cardiovascular Cardiovascular exam: Present: regular rate, normal rhythm, systolic murmur - Abdominal Exam Abdominal exam: Present: soft. Absent: distention, guarding, rebound, rigidity Abdominal tenderness: Present: diffuse, mild - Extremities Exam Extremities exam: Present: normal inspection. Absent: tenderness, pedal edema - Neurological Exam Neurological exam: Present: alert, oriented X3 - Psychiatric Psychiatric exam: Present: normal affect, normal mood - Skin Skin exam: Present: warm, dry, intact Course Vital Signs Temperature 103.2 F H 07/03/19 12:38 Pulse Rate 100 07/03/19 12:38 Respiratory Rate 28 07/03/19 12:38 Blood Pressure 155/63 07/03/19 12:38 O2 Sat by Pulse Oximetry 96 07/03/19 12:38 Temperature 103.2 F H 07/03/19 12:38 Pulse Rate 80 07/03/19 14:50 Respiratory Rate 26 07/03/19 14:50 Blood Pressure 127/72 07/03/19 14:50 O2 Sat by Pulse Oximetry 100 07/03/19 14:50 Oxygen Delivery Oxygen Delivery Nasal Cannula Medical Decision Making - [facility] Narrative Medical decision making narrative: Patient presents meeting SIRS criteria with elevated temperature and tachypnea. Urine is foul-smelling and after straight catheter was reported to have a lot of sediment. We will obtain septic labs and administer a liter of fluids as this patient is a dialysis dependent patient. We will also obtain chest x-ray and CAT scan of the abdomen and pelvis due to the patient's cough and abdominal pain. Disposition is likely admission. 1500 - Pts labs show UTI without significant leukocytosis or other lab abnormalities. CXR shows mild pulmonary congestion and CT abdomen does not demonstrate any acute abnormalities. Pt has a history of many MDRO organisms in her urine, and upon review of all the drug sensitivities we will start her on ertapenem and zyvox. Pt will be admitted for further treatment of her sepsis. Hospitalist has been paged. [phone] - Dr. Brasher has accepted the patient for admission. - Medical Records Medical records reviewed: Yes I reviewed the patient's medical records. - Lab Data Lab results reviewed: Yes I reviewed the patient's lab results. Result diagrams: 07/03/19 13:10 07/03/19 13:10 Lab Results 07/03/19 07/03/19 07/03/19 Range/Units 13:09 13:10 13:10 WBC 10.1 (4.3-11.1) K/mcL RBC 3.45 L (3.82-4.97) M/mcL Hgb 11.4 L (11.5-15.4) g/dL Hct 34.3 L (35.3-44.9) % MCV 99.4 (83.0-100.0) fL MCH 33.0 (28.0-33.3) pg MCHC 33.2 (31.6-35.5) g/dL RDW 13.6 (11.5-14.5) % Plt Count 128 L (140-400) K/mcL MPV 10.5 (9.4-12.4) fL Seg Neutrophils % 78.0 % Band Neutrophils % 12.0 H (0-4) % Lymphocytes % 2.0 % Monocytes % 8.0 % Neutrophils # 9.1 H (1.6-8.9) K/mcL Lymphocytes # 0.2 L (0.6-4.6) K/mcL Monocytes # 0.8 (0.0-1.3) K/mcL Platelet Estimate Slight Decrease L (Normal) PT 15.1 H (9.4-12.1) Seconds INR 1.3 APTT 19.8 L (26.0-36.0) Seconds Sodium (136-145) mEq/L Potassium (3.5-5.1) mEq/L Chloride (98-107) mEq/L Carbon Dioxide (23-29) mEq/L BUN (8-23) mg/dL Creatinine (0.60-1.20) mg/dL Est GFR ( Amer) (> 60) Est GFR (Non-Af Amer) (> 60) BUN/Creatinine Ratio (6-26) Glucose (70-105) mg/dL Calculated Osmolality (280-300) Lactic Acid (0.5-2.2) mmol/L Calcium (8.6-10.3) mg/dL Phosphorus (2.7-4.5) mg/dL Magnesium (1.6-2.6) mg/dL Total Bilirubin (0.3-1.0) mg/dL Direct Bilirubin (0.0-0.2) mg/dL Indirect Bilirubin (0.0-1.2) mg/dL AST (13-39) Units/L ALT (7-52) Units/L Alkaline Phosphatase (34-104) Units/L Troponin I (< 0.04) ng/mL Serum Total Protein (6.4-8.9) g/dL Albumin (3.5-5.7) g/dL Globulin (2.4-3.5) g/dL Albumin/Globulin Ratio (1.1-2.2) Urine Color Yellow (Yellow) Urine Clarity Turbid A (Clear) Urine pH 7.0 (5.0-8.0) pH Units Ur Specific [place] 1.012 (1.010-1.025) Urine Protein >=300 H (Neg-Trace) mg/dL Urine Glucose (UA) Normal (Normal) mg/dL Urine Ketones Negative (Negative) mg/dL Urine Blood Large H (Negative) Urine Nitrite Negative (Negative) Urine Bilirubin Negative (Negative) Urine Urobilinogen Normal (Normal) mg/dL Ur Leukocyte Esterase Large H (Negative) Urine Microscopic RBC 30-50 H (0-3) per hpf Urine Microscopic WBC TNTC H (0-3) per hpf Ur Squamous Epith Cells Many H (None-Few) per lpf Urine Bacteria Many H (None-Few) per hpf Ur Culture Indicated? YES A (NO) 07/03/19 07/03/19 Range/Units 13:10 13:10 WBC (4.3-11.1) K/mcL RBC (3.82-4.97) M/mcL Hgb (11.5-15.4) g/dL Hct (35.3-44.9) % MCV (83.0-100.0) fL MCH (28.0-33.3) pg MCHC (31.6-35.5) g/dL RDW (11.5-14.5) % Plt Count (140-400) K/mcL MPV (9.4-12.4) fL Seg Neutrophils % % Band Neutrophils % (0-4) % Lymphocytes % % Monocytes % % Neutrophils # (1.6-8.9) K/mcL Lymphocytes # (0.6-4.6) K/mcL Monocytes # (0.0-1.3) K/mcL Platelet Estimate (Normal) PT (9.4-12.1) Seconds INR APTT (26.0-36.0) Seconds Sodium 129 L (136-145) mEq/L Potassium 5.4 H (3.5-5.1) mEq/L Chloride 95 L (98-107) mEq/L Carbon Dioxide 23 (23-29) mEq/L BUN 59 H (8-23) mg/dL Creatinine 3.55 H (0.60-1.20) mg/dL Est GFR ( Amer) 15 L (> 60) Est GFR (Non-Af Amer) 13 L (> 60) BUN/Creatinine Ratio 17 (6-26) Glucose 203 H (70-105) mg/dL Calculated Osmolality 290 (280-300) Lactic Acid 1.2 (0.5-2.2) mmol/L Calcium 8.8 (8.6-10.3) mg/dL Phosphorus 2.7 (2.7-4.5) mg/dL Magnesium 1.6 (1.6-2.6) mg/dL Total Bilirubin 0.4 (0.3-1.0) mg/dL Direct Bilirubin 0.1 (0.0-0.2) mg/dL Indirect Bilirubin 0.3 (0.0-1.2) mg/dL AST 35 (13-39) Units/L ALT 36 (7-52) Units/L Alkaline Phosphatase 133 H (34-104) Units/L Troponin I 0.04 H* (< 0.04) ng/mL Serum Total Protein 6.5 (6.4-8.9) g/dL Albumin 3.6 (3.5-5.7) g/dL Globulin 2.9 (2.4-3.5) g/dL Albumin/Globulin Ratio 1.2 (1.1-2.2) Urine Color (Yellow) Urine Clarity (Clear) Urine pH (5.0-8.0) pH Units Ur Specific [place] (1.010-1.025) Urine Protein (Neg-Trace) mg/dL Urine Glucose (UA) (Normal) mg/dL Urine Ketones (Negative) mg/dL Urine Blood (Negative) Urine Nitrite (Negative) Urine Bilirubin (Negative) Urine Urobilinogen (Normal) mg/dL Ur Leukocyte Esterase (Negative) Urine Microscopic RBC (0-3) per hpf Urine Microscopic WBC (0-3) per hpf Ur Squamous Epith Cells (None-Few) per lpf Urine Bacteria (None-Few) per hpf Ur Culture Indicated? (NO) - Radiology Data Radiology results reviewed: Yes I reviewed the patient's radiology results. - EKG Data EKG #1 EKG attestation: Yes I reviewed and interpreted this EKG. EKG results narrative: EKG obtained at 1241 on 07/03/2019 HR 99bpm, [place] interval 157, QRS duration 110, QT 347, QTc 446 Sinus rhythm with left ventricular hypertrophy. No signs of ST segment elevation or depression. There is a wandering baseline in leads V3 and V4. No acute changes when compared to previous EKG dated 01/29/2019. Attestation Statement - Attestation Attestation: Jeremy Martinez D.O., examined this patient and my medical decision-making was reviewed with the Resident Physician. I agree with the documented findings, disposition and treatment plan as described except to the extent set forth below .
[2019-07-03 13:28] LABS: Bilirubin,Urine Negative (Negative); Blood,Urine Large (Negative); Clarity,Urine Turbid (Clear); Color,Urine Yellow (Yellow); Glucose,Urine (UA) Normal (Normal); Ketones,Urine Negative (Negative); Leukocyte Esterase,Urine Large (Negative); Nitrite,Urine Negative (Negative); Protein,Urine >=300 mg/dL (Neg-Trace); Specific Gravity,Urine 1.012 (1.010-1.025); Urobilinogen,Urine Normal (Normal)
[2019-07-03 13:28] LABS: Hematocrit 34.3 % (35.3-44.9); Hemoglobin 11.4 g/dL (11.5-15.4); Mean Corpuscular HGB Conc 33.2 g/dL (31.6-35.5); Mean Corpuscular Volume 99.4 fL (83.0-100.0); Mean Platelet Volume 10.5 fL (9.4-12.4); Platelet Count 128 K/mcL (140-400); Red Blood Count 3.45 M/mcL (3.82-4.97); Red Cell Distribution Width 13.6 % (11.5-14.5); White Blood Count 10.1 K/mcL (4.3-11.1)
[2019-07-03 13:30] LABS: Bacteria,Urine Many per hpf (None-Few); RBC,Urine 30-50 per hpf (0-3); Squamous Epithelial Cell,Urine Many per lpf (None-Few); WBC,Urine TNTC per hpf (0-3)
[2019-07-03 13:38] LABS: INR 1.3; Prothrombin Time 15.1 Seconds (9.4-12.1)
[2019-07-03 13:50] LABS: Activated Partial Thrombo Time 19.8 Seconds (26.0-36.0)
[2019-07-03 13:51] LABS: Albumin 3.6 g/dL (3.5-5.7); Albumin/Globulin Ratio 1.2 (1.1-2.2); Bilirubin,Direct 0.1 mg/dL (0.0-0.2); Bilirubin,Indirect 0.3 mg/dL (0.0-1.2); Bilirubin,Total 0.4 mg/dL (0.3-1.0); Calcium 8.8 mg/dL (8.6-10.3); Globulin 2.9 g/dL (2.4-3.5); Magnesium 1.6 mg/dL (1.6-2.6); Phosphorous 2.7 mg/dL (2.7-4.5); Potassium 5.4 mEq/L (3.5-5.1); Total Protein 6.5 g/dL (6.4-8.9)
--- NOTE | 2019-07-03 13:53 | Emergency Department Note ---
Disposition Clinical Impression: Elevated troponin UTI (urinary tract infection) Qualifiers: Urinary tract infection type: site unspecified Hematuria presence: without hematuria Qualified Code(s): N39.0 - Urinary tract infection, site not specified Sepsis Qualifiers: Sepsis type: sepsis due to unspecified organism Sepsis acute organ dysfunction status: without acute organ dysfunction Qualified Code(s): A41.9 - Sepsis, unspecified organism Disposition: Admitted As Inpatient Condition: Fair Time of Disposition: 15:34 General Adult HPI - General Chief complaint: ED Fever Stated complaint: wheezing Time Seen by Provider: 07/03/19 12:55 Source: patient, EMS Mode of arrival: EMS Limitations: no limitations - History of Present Illness Pain Scale: 10 - Related Data Home Medications Medication Instructions Recorded Confirmed Folic Acid 1 mg PO DAILY 07/10/15 05/17/19 Levothyroxine [Synthroid] 50 mcg PO DAILY 07/10/15 05/17/19 Pantoprazole Sodium [Protonix] 40 mg PO BID 07/10/15 05/17/19 Atorvastatin [Lipitor] 40 mg PO HS 03/17/17 05/17/19 Clopidogrel [Plavix] 75 mg PO DAILY 05/09/17 05/17/19 Sucralfate [Carafate] 1 gm PO BID 05/09/17 05/17/19 Furosemide [Lasix] 20 mg PO DAILY 03/01/18 05/17/19 Amitriptyline [Elavil] 25 mg PO HS 03/26/18 05/17/19 Ergocalciferol (VITAMIN D2) 50,000 unit PO MO 03/26/18 05/17/19 [Drisdol] Insulin DETEMIR [Levemir] 12 unit SQ QA 03/26/18 05/17/19 Tamsulosin [Flomax] 0.4 mg PO DAILY 03/26/18 05/17/19 Lisinopril [Zestril] 20 mg PO [facility] 07/31/18 05/17/19 Mirtazapine [Remeron] 7.5 mg PO HS 07/31/18 05/17/19 Insulin DETEMIR [Levemir Flextouch] 14 unit SQ HS 08/06/18 05/17/19 Aspirin Enteric Coated [Aspirin EC] 81 mg PO DAILY 09/04/18 05/17/19 Calcium Carbonate [Calcium] 500 mg PO BID 09/04/18 05/17/19 Midodrine [ProAmatine] 5 mg PO MOWEFR 09/04/18 05/17/19 Oxybutynin Chloride [Ditropan XL] 10 mg PO DAILY 09/04/18 05/17/19 Albuterol Sulfate [Proventil 2 puff IH Q4H PRN 12/13/18 05/17/19 Inhaler] Metoprolol [Lopressor] 12.5 mg PO SUTUTHSA 12/13/18 05/17/19 Ondansetron HCl [Zofran] 4 mg PO Q8H PRN 12/13/18 05/17/19 RisperiDONE [Risperdal] 0.5 mg PO BID 12/13/18 05/17/19 Ropinirole HCl [Requip] 0.25 mg PO HS 12/13/18 05/17/19 Benzonatate [Tessalon] 200 mg PO TID PRN 01/29/19 05/17/19 Guaifenesin [Mucinex] 600 mg PO Q12H 01/29/19 05/17/19 Insulin Regular, Human [Novolin R] 8 unit IJ TIDWM 01/29/19 05/17/19 Meclizine [Antivert] 25 mg PO TID 01/29/19 05/17/19 Acetaminophen [Tylenol 8 Hour] 650 mg PO Q8H PRN 05/17/19 05/17/19 B Complex W-C No.20/Folic Acid 1 mg PO DAILY 05/17/19 05/17/19 [Virt-Caps Softgel] Benzonatate [Tessalon] 200 mg PO TID PRN 05/17/19 05/17/19 Ergocalciferol (VITAMIN D2) 400 unit PO DAILY 05/17/19 05/17/19 [Vitamin D] GuaiFENesin/Dextromethorphan 118 ml PO QID PRN 05/17/19 05/17/19 [Tussin Dm Cough Syrup] Guaifenesin/Codeine Phosphate 5 ml PO Q4-6H PRN 05/17/19 05/17/19 [Guaifen-Codeine 100-10 mg/5 ml] Ipratropium/Albuterol Sulfate 3 ml IH QID PRN 05/17/19 05/17/19 [Iprat-Albut 0.5-3(2.5) mg/3 ml] Trazodone HCl 50 mg PO HS 05/17/19 05/17/19 Allergies Allergy/AdvReac Type Severity Reaction Status Date / Time latex Allergy Rash Verified 05/17/19 12:19 Sulfa (Sulfonamide Allergy Rash Verified 05/17/19 12:19 Antibiotics) adhesive tape AdvReac "RIPPED Verified 05/17/19 12:19 SKIN OFF" Constitutional: Reports: fever, weakness Eyes: Reports: eye discharge ENT ED: Denies: throat pain Cardiovascular: Reports: chest pain, dyspnea on exertion. Denies: palpitations Respiratory: Reports: cough. Denies: dyspnea, wheezes Gastrointestinal: Reports: abdominal pain, nausea. Denies: vomiting, diarrhea Genitourinary: Reports: frequency. Denies: dysuria, hematuria, discharge Integumentary: Denies: rash Endocrine: Reports: fatigue Past Medical History - Past Medical History Medical history: Reports: arthritis, cancer, coronary artery disease, diabetes, dialysis, GERD, hyperlipidemia, hypertension, myocardial infarction, peripheral artery disease, renal disease, other Surgical history: Reports: appendectomy, cholecystectomy, coronary bypass (CABG), hysterectomy, MONIQUE/BSO, ureteral stent, other Psychiatric history: Reports: anxiety, depression REGULATORY AFFAIRS SPECIALIST history: Reports: no REGULATORY AFFAIRS SPECIALIST history - Social History Smoking Status: Never smoker Smokeless Tobacco Status: No Alcohol use: Reports: none Drug use: Reports: none Physical Exam - General Limitations: no limitations General appearance: alert, in distress Course Vital Signs Temperature 103.2 F H 07/03/19 12:38 Pulse Rate 100 07/03/19 12:38 Respiratory Rate 28 07/03/19 12:38 Blood Pressure 155/63 07/03/19 12:38 O2 Sat by Pulse Oximetry 96 07/03/19 12:38 Temperature 103.2 F H 07/03/19 12:38 Pulse Rate 72 07/03/19 15:26 Respiratory Rate 24 07/03/19 15:26 Blood Pressure 107/48 07/03/19 15:26 O2 Sat by Pulse Oximetry 96 07/03/19 15:26 Oxygen Delivery Oxygen Delivery Nasal Cannula Medical Decision Making - Lab Data Result diagrams: 07/03/19 13:10 07/03/19 13:10 Lab Results 07/03/19 07/03/19 07/03/19 Range/Units 13:09 13:10 13:10 WBC 10.1 (4.3-11.1) K/mcL RBC 3.45 L (3.82-4.97) M/mcL Hgb 11.4 L (11.5-15.4) g/dL Hct 34.3 L (35.3-44.9) % MCV 99.4 (83.0-100.0) fL MCH 33.0 (28.0-33.3) pg MCHC 33.2 (31.6-35.5) g/dL RDW 13.6 (11.5-14.5) % Plt Count 128 L (140-400) K/mcL MPV 10.5 (9.4-12.4) fL Seg Neutrophils % 78.0 % Band Neutrophils % 12.0 H (0-4) % Lymphocytes % 2.0 % Monocytes % 8.0 % Neutrophils # 9.1 H (1.6-8.9) K/mcL Lymphocytes # 0.2 L (0.6-4.6) K/mcL Monocytes # 0.8 (0.0-1.3) K/mcL Platelet Estimate Slight Decrease L (Normal) PT 15.1 H (9.4-12.1) Seconds INR 1.3 APTT 19.8 L (26.0-36.0) Seconds Sodium (136-145) mEq/L Potassium (3.5-5.1) mEq/L Chloride (98-107) mEq/L Carbon Dioxide (23-29) mEq/L BUN (8-23) mg/dL Creatinine (0.60-1.20) mg/dL Est GFR ( Amer) (> 60) Est GFR (Non-Af Amer) (> 60) BUN/Creatinine Ratio (6-26) Glucose (70-105) mg/dL Calculated Osmolality (280-300) Lactic Acid (0.5-2.2) mmol/L Calcium (8.6-10.3) mg/dL Phosphorus (2.7-4.5) mg/dL Magnesium (1.6-2.6) mg/dL Total Bilirubin (0.3-1.0) mg/dL Direct Bilirubin (0.0-0.2) mg/dL Indirect Bilirubin (0.0-1.2) mg/dL AST (13-39) Units/L ALT (7-52) Units/L Alkaline Phosphatase (34-104) Units/L Troponin I (< 0.04) ng/mL Serum Total Protein (6.4-8.9) g/dL Albumin (3.5-5.7) g/dL Globulin (2.4-3.5) g/dL Albumin/Globulin Ratio (1.1-2.2) Urine Color Yellow (Yellow) Urine Clarity Turbid A (Clear) Urine pH 7.0 (5.0-8.0) pH Units Ur Specific [place] 1.012 (1.010-1.025) Urine Protein >=300 H (Neg-Trace) mg/dL Urine Glucose (UA) Normal (Normal) mg/dL Urine Ketones Negative (Negative) mg/dL Urine Blood Large H (Negative) Urine Nitrite Negative (Negative) Urine Bilirubin Negative (Negative) Urine Urobilinogen Normal (Normal) mg/dL Ur Leukocyte Esterase Large H (Negative) Urine Microscopic RBC 30-50 H (0-3) per hpf Urine Microscopic WBC TNTC H (0-3) per hpf Ur Squamous Epith Cells Many H (None-Few) per lpf Urine Bacteria Many H (None-Few) per hpf Ur Culture Indicated? YES A (NO) 07/03/19 07/03/19 Range/Units 13:10 13:10 WBC (4.3-11.1) K/mcL RBC (3.82-4.97) M/mcL Hgb (11.5-15.4) g/dL Hct (35.3-44.9) % MCV (83.0-100.0) fL MCH (28.0-33.3) pg MCHC (31.6-35.5) g/dL RDW (11.5-14.5) % Plt Count (140-400) K/mcL MPV (9.4-12.4) fL Seg Neutrophils % % Band Neutrophils % (0-4) % Lymphocytes % % Monocytes % % Neutrophils # (1.6-8.9) K/mcL Lymphocytes # (0.6-4.6) K/mcL Monocytes # (0.0-1.3) K/mcL Platelet Estimate (Normal) PT (9.4-12.1) Seconds INR APTT (26.0-36.0) Seconds Sodium 129 L (136-145) mEq/L Potassium 5.4 H (3.5-5.1) mEq/L Chloride 95 L (98-107) mEq/L Carbon Dioxide 23 (23-29) mEq/L BUN 59 H (8-23) mg/dL Creatinine 3.55 H (0.60-1.20) mg/dL Est GFR ( Amer) 15 L (> 60) Est GFR (Non-Af Amer) 13 L (> 60) BUN/Creatinine Ratio 17 (6-26) Glucose 203 H (70-105) mg/dL Calculated Osmolality 290 (280-300) Lactic Acid 1.2 (0.5-2.2) mmol/L Calcium 8.8 (8.6-10.3) mg/dL Phosphorus 2.7 (2.7-4.5) mg/dL Magnesium 1.6 (1.6-2.6) mg/dL Total Bilirubin 0.4 (0.3-1.0) mg/dL Direct Bilirubin 0.1 (0.0-0.2) mg/dL Indirect Bilirubin 0.3 (0.0-1.2) mg/dL AST 35 (13-39) Units/L ALT 36 (7-52) Units/L Alkaline Phosphatase 133 H (34-104) Units/L Troponin I 0.04 H* (< 0.04) ng/mL Serum Total Protein 6.5 (6.4-8.9) g/dL Albumin 3.6 (3.5-5.7) g/dL Globulin 2.9 (2.4-3.5) g/dL Albumin/Globulin Ratio 1.2 (1.1-2.2) Urine Color (Yellow) Urine Clarity (Clear) Urine pH (5.0-8.0) pH Units Ur Specific [place] (1.010-1.025) Urine Protein (Neg-Trace) mg/dL Urine Glucose (UA) (Normal) mg/dL Urine Ketones (Negative) mg/dL Urine Blood (Negative) Urine Nitrite (Negative) Urine Bilirubin (Negative) Urine Urobilinogen (Normal) mg/dL Ur Leukocyte Esterase (Negative) Urine Microscopic RBC (0-3) per hpf Urine Microscopic WBC (0-3) per hpf Ur Squamous Epith Cells (None-Few) per lpf Urine Bacteria (None-Few) per hpf Ur Culture Indicated? (NO) Attestation Statement - Attestation Attestation: Jeremy Martinez D.O., examined this patient and my medical decision-making was reviewed with the Resident Physician. I agree with the documented findings, disposition and treatment plan as described except to the extent set forth below. This is a 68-year-old female with a history of ESRD on dialysis Tuesday secondary to diabetes who presents for fever. States she has felt unwell since yesterday. She was having some pain in her ribs. She also reports a cough, nausea vomiting diarrhea and dysuria. She still makes urine. She also complains of some mild generalized abdominal pain. Exam: Alert, mentating appropriately in no acute distress. Heart is tachycardic, regular rhythm. Lungs are diminished bilaterally. Abdomen is soft with mild periumbilical tenderness. Her right AV fistula appears clean and dry with no evidence of cellulitis. Extremities are without edema. Plan: Patient meets her criteria. EKG, chest x-ray, CT of the abdomen and pelvis, labs including lactic acid and blood cultures. We will begin gentle hydration. Anticipated admission ED Procedure Note: EKG interpretation - I agree with the resident physician's documentation and interpretation of the patient's EKG. Sinus rhythm with rate of 99 beats or minute. Normal axis. Normal intervals. Normal R-wave progression. No gross ST elevations or depressions. No acute ischemic findings. No significant changes from previous EKG dated 01/29/19 Labs reviewed white blood cell count and lactate are normal. She is noted to be hyponatremic given that she just recently had dialysis. Potassium is slightly elevated at 5.4. Creatinine obviously elevated given her renal failure. His have a troponin of 0.04 in the setting of renal failure with a normal EKG with out ischemic changes. Patient will be treated for sepsis, UTI origin. I spoke with the pharmacist given her prior cultures. We will start her on Zyvox and Invanz. Imaging is grossly unremarkable. The patient did have some mild pulmonic congestion on chest x-ray. For this reason as well as absence of hypotension and normal lactic acid fluids were modestly given. Patient is admitted to the hospitalist service.
[2019-07-03 13:57] LABS: Troponin I 0.04 ng/mL (< 0.04)
[2019-07-03 13:59] LABS: Lymphocytes # 0.2 K/mcL (0.6-4.6); Monocytes # 0.8 K/mcL (0.0-1.3); Neutrophils # 9.1 K/mcL (1.6-8.9); Platelet Estimate Slight Decrease (Normal)
[2019-07-03] MEDS ORDERED: Naloxone 0.4 MG/ML INJ IVP PRN (16:12)
[2019-07-03] MEDS ORDERED: Ipratropium/Albuterol Neb 3 ML IH PRN (16:15)
[2019-07-03] MEDS ORDERED: NON-FORMULARY MEDICATION 1 EACH EACH (Acetaminophen [Tylenol 8 Hour] 650 MG) PO PRN (16:15)
[2019-07-03] MEDS ORDERED: 0.9 % Sodium Chloride 1,000 ML IVC SCH (16:15)
[2019-07-03] MEDS ORDERED: *HR* Dextrose 50 % in Water (Syg) 50 ML SYRINGE IVP PRN (16:21)
[2019-07-03] MEDS ORDERED: D5% in Water 1,000 ML IVC PRN (16:21)
[2019-07-03] MEDS ORDERED: Dextrose Gel 15 GM/37.5 ML TUBE PO PRN ×2 (16:21)
[2019-07-03] MEDS ORDERED: Furosemide 20 MG/2 ML VIAL IVP ONE (16:50)
[2019-07-03 17:04] LABS: Estimated Average Glucose 160 mg/dl
--- NOTE | 2019-07-03 17:05 | Internal Med History&Physical ---
Date of Encounter: 07/03/19 Time of Encounter: 16:56 Internal Medicine - H&P: HPI Chief complaint: Fevers, abdominal pain, nausea and vomiting History of present illness: Ms. Dan is a 68 year old female with pmh of diabetes, hypertension, bilateral ureteral stent placement for hydronephrosis presenting with complaints of nausea and vomiting of 1 day duration. Patient is a [facility] resident and said she has been having left sided rib/chest pain since dialysis yesterday. Pain is intermittent, no precise relieving factors. She also complains of suprapubic abdominal pain since yesterday, sharp and bilateral which has been constant. Pain was accompanied by nausea and vomiting last night and today. She also complains of burning on urination. She was noted to have a fever at [facility] and that's why she was brought to the ER. She denies any diarrhea, admits to shortness of breath. In the ER, she was noted to have a fever of 103. Urine cultures in the past have grown multidrug resistant organisms. She was started on zyvox and ertapenem to provide broad coverage and she is being admitted for UTI sepsis Past Med Surg Social Fam HX - Past Medical History Medical history: arthritis, cancer, coronary artery disease, diabetes, dialysis, GERD, hyperlipidemia, hypertension, myocardial infarction, peripheral artery disease, renal disease, other Additional medical history: neuropathy, insomnia Psychiatric history: anxiety, depression - Past Surgical History Surgical History: appendectomy, cholecystectomy, coronary bypass (CABG), hysterectomy, MONIQUE/BSO, ureteral stent, other Additional surgical history: egd/colonoscopy, renal stents, fistula - Social History Smoking Status: Never smoker Smokeless Tobacco Status: No Alcohol use: none Drug use: none - Family History Mother Living Status: Hx Family Endocrine Disorder: (DM) Father Adopted: No Hx Family Cardiac Disorders: Yes ("heart troubles") Hx Family Cancer: Yes (Prostate cancer) Hx Family Endocrine Disorder: Yes (DM) Brother Hx Family Cardiac Disorders: Yes (CAD) Hx Family Cancer: Yes (lung cancer) Internal Medicine - H&P: Meds Folic Acid 1 mg PO DAILY 07/10/15 [History] Levothyroxine [Synthroid] 50 mcg PO DAILY 07/10/15 [History] Pantoprazole Sodium [Protonix] 40 mg PO BID 07/10/15 [History] Atorvastatin [Lipitor] 40 mg PO HS 03/17/17 [History] Clopidogrel [Plavix] 75 mg PO DAILY 05/09/17 [History] Sucralfate [Carafate] 1 gm PO BID 05/09/17 [History] Furosemide [Lasix] 20 mg PO DAILY 03/01/18 [History] Amitriptyline [Elavil] 25 mg PO HS 03/26/18 [History] Ergocalciferol (VITAMIN D2) [Drisdol] 50,000 unit PO MO 03/26/18 [History] Insulin DETEMIR [Levemir] 12 unit SQ QAM 03/26/18 [History] Tamsulosin [Flomax] 0.4 mg PO DAILY 03/26/18 [History] Lisinop[facility] [[facility]] [facility] 07/31/[facility] [History] Mirtazapine [Remeron] 7.5 mg PO HS 07/31/18 [History] Insulin DETEMIR [Levemir Flextouch] 14 unit SQ HS 08/06/18 [History] Aspirin Enteric Coated [Aspirin EC] 81 mg PO DAILY 09/04/18 [History] Calcium Carbonate [Calcium] 500 mg PO BID 09/04/18 [History] Midodrine [ProAmatine] 5 mg PO MOWEFR 09/04/18 [History] Oxybutynin Chloride [Ditropan XL] 10 mg PO DAILY 09/04/18 [History] Albuterol Sulfate [Proventil Inhaler] 2 puff IH Q4H PRN 12/13/18 [History] Metoprolol [Lopressor] 12.5 mg PO [facility] 12/13/18 [History] Ondansetron HCl [Zofran] 4 mg PO Q8H PRN 12/13/18 [History] RisperiDONE [Risperdal] 0.5 mg PO BID 12/13/18 [History] Ropinirole HCl [Requip] 0.25 mg PO HS 12/13/18 [History] Benzonatate [Tessalon] 200 mg PO TID PRN 01/29/19 [History] Guaifenesin [Mucinex] 600 mg PO Q12H 01/29/19 [History] Insulin Regular, Human [Novolin R] 8 unit IJ TIDWM 01/29/19 [History] Meclizine [Antivert] 25 mg PO TID 01/29/19 [History] Acetaminophen [Tylenol 8 Hour] 650 mg PO Q8H PRN 05/17/19 [History] B Complex W-C No.20/Folic Acid [Virt-Caps Softgel] 1 mg PO DAILY 05/17/19 [History] Benzonatate [Tessalon] 200 mg PO TID PRN 05/17/19 [History] Ergocalciferol (VITAMIN D2) [Vitamin D] 400 unit PO DAILY 05/17/19 [History] GuaiFENesin/Dextromethorphan [Tussin Dm Cough Syrup] 118 ml PO QID PRN 05/17/19 [History] Guaifenesin/Codeine Phosphate [Guaifen-Codeine 100-10 mg/5 ml] 5 ml PO Q4-6H PRN 05/17/19 [History] Ipratropium/Albuterol Sulfate [Iprat-Albut 0.5-3(2.5) mg/3 ml] 3 ml IH QID PRN 05/17/19 [History] Trazodone HCl 50 mg PO HS 05/17/19 [History] Allergy/AdvReac Type Severity Reaction Status Date / Time latex Allergy Rash Verified 05/17/19 12:19 Sulfa (Sulfonamide Allergy Rash Verified 05/17/19 12:19 Antibiotics) adhesive tape AdvReac "RIPPED Verified 05/17/19 12:19 SKIN OFF" All Systems PM: A 10-system review of systems was performed and is negative for pertinent findings except as documented above in the HPI. - Constitutional Constitutional: no chills, no fever(s), no night sweats - EENT Eyes: no change in vision, no discharge, no pain, no photophobia Ears: no ear discharge, no ear pain, no tinnitus Nose, mouth and throat: no dysphagia, no nasal discharge, no neck pain, no sore throat - Cardiovascular Cardiovascular ROS IM: chest pain, dyspnea, no diaphoresis, no lightheadedness, no palpitations, no syncope - Respiratory Respiratory: no cough, no dyspnea, no wheezing, no excessive phlegm production - Gastrointestinal Gastrointestinal: abdominal pain, nausea, vomiting, no diarrhea, no hematemesis, no hematochezia, no melena - Genitourinary Genitourinary: no change in urinary stream, no dysuria, no flank pain, no hematuria - Musculoskeletal Musculoskeletal ROS IM: no numbness, no tingling - Integumentary Integumentary IM: no rash, no unusual bruising - Neurological Neurological ROS: no confusion, no convulsions, no focal weakness, no numbness, no tingling, no tremor(s) - Hematologic/Lymphatic Hematologic/Lymphatic: no easy bruising - Constitutional Vitals: Temp Pulse Resp BP Pulse Ox 101.0 F H 72 24 107/48 96 07/03/19 15:39 07/03/19 15:26 07/03/19 15:26 07/03/19 15:26 07/03/19 15:26 Exam: NAD Smells of urine Bilateral suprapubic pain - Head Head exam: Present: atraumatic, normocephalic - Eye Eye exam: Present: PERRL, conjuntiva pink, sclera anicteric Pupils: Present: PERRL - Neck Neck exam general surgery: Present: supple, trachea midline. Absent: lymphadenopathy - Respiratory Respiratory exam: Present: CTAB. Absent: accessory muscle use, rales, rhonchi, wheezes - Cardiovascular Cardiovascular exam: Present: RRR, +S1, +S2. Absent: diastolic murmur, gallop, rubs, systolic murmur - GI/Abdominal GI/Abdominal exam: Present: normal bowel sounds, soft, no peritoneal signs. Abs ent: distended, tenderness - Extremities Exam Extremities exam: Present: warm, radial pulses palpable and symmetrical. Absent: calf tenderness, cyanotic, pedal edema - Neurological Exam Neurological exam: Present: CN II-XII intact, oriented X3, no focal deficits. Absent: pronater drift, facial droop, speech deficit - Skin Skin exam: Present: dry, intact Internal Med - H&P Results - Labs CBC & Chem 7: 07/03/19 13:10 07/03/19 13:10 Labs: Short CBC 07/03/19 Range/Units 13:10 WBC 10.1 (4.3-11.1) K/mcL Hgb 11.4 L (11.5-15.4) g/dL Hct 34.3 L (35.3-44.9) % Plt Count 128 L (140-400) K/mcL Neutrophils # 9.1 H (1.6-8.9) K/mcL BMP 07/03/19 13:10 Sodium 129 L Potassium 5.4 H Chloride 95 L Carbon Dioxide 23 BUN 59 H Creatinine 3.55 H Glucose 203 H Calcium 8.8 Cardiac Enzymes 07/03/19 Range/Units 13:10 Troponin I 0.04 H* (< 0.04) ng/mL Liver Function 07/03/19 Range/Units 13:10 Total Bilirubin 0.4 (0.3-1.0) mg/dL Direct Bilirubin 0.1 (0.0-0.2) mg/dL AST 35 (13-39) Units/L ALT 36 (7-52) Units/L Alkaline Phosphatase 133 H (34-104) Units/L Albumin 3.6 (3.5-5.7) g/dL Urine 07/03/19 Range/Units 13:09 Urine Color Yellow (Yellow) Urine Clarity Turbid A (Clear) Urine pH 7.0 (5.0-8.0) pH Units Ur Specific [place] 1.012 (1.010-1.025) Urine Protein >=300 H (Neg-Trace) mg/dL Urine Glucose (UA) Normal (Normal) mg/dL - Impressions ITS Impressions Chest X-Ray 07/03/19 13:05 IMPRESSION: Mild vascular congestion, as well as minimal discoid atelectasis on the right. Otherwise no acute process is seen. D/ / Neville Elaine MD / Neville Elaine MD Interpreting Provider: Neville Elaine MD Abdomen/Pelvis CT 07/03/19 13:09 IMPRESSION: No acute process of the abdomen or pelvis. Stable bilateral ureteral stents in place. No evidence urinary tract obstruction. Chronic irregularity and sclerosis of the endplates at the L3-4 level without secondary findings to suggest an acute process. If there is further clinical concern MRI with gadolinium is recommended. Fat containing ventral hernias. D/ / 07/03/2019 14:47:49 Guevara Queen MD / shannon Interpreting Provider: Guevara Queen MD - Assessment and Plan (1) Sepsis Current Visit: Yes Status: Acute Assessment and plan: Pt comes in with fever of 103 and tachycardia of 100 likely secondary to UTI sepsis Pt has chronic hydronephrosis with bilateral stents and has grown multidrug resistant organisms in the past Cover empirically with zyvox and ertapenem. Follow blood and urine cultures ID and urology recs appreciated Qualifiers: Sepsis type: sepsis due to unspecified organism Sepsis acute organ dysfunct ion status: without acute organ dysfunction Qualified Code(s): A41.9 - Sepsis, unspecified organism (2) Chest pain Current Visit: Yes Status: Acute Assessment and plan: Complains of left sided chest pain and has mildly elevated troponins Trend troponins. Obtain echo. Stress test a year ago was negative Qualifiers: Qualified Code(s): R07.9 - Chest pain, unspecified (3) Diastolic CHF Current Visit: Yes Status: Acute Assessment and plan: Pt has acute worsening of chronic diastolic CHF possibly secondary to hydration CXR shows vascular congestion and pt is short of breath. Hold fluids Gave one dose of lasix. Dialysis in am Qualifiers: Heart failure chronicity: acute on chronic Qualified Code(s): I50.33 - Acute on chronic diastolic (congestive) heart failure (4) UTI (urinary tract infection) Current Visit: Yes Status: Acute Assessment and plan: See #1. Qualifiers: Urinary tract infection type: site unspecified Hematuria presence: without hematuria Qualified Code(s): N39.0 - Urinary tract infection, site not specified (5) ESRD (end stage renal disease) Current Visit: Yes Status: Acute Assessment and plan: Resume dialysis per schedule (6) Diabetes mellitus Current Visit: Yes Status: Acute Assessment and plan: Continue insulin and monitor fingersticks Qualifiers: Qualified Code(s): E11.9 - Type 2 diabetes mellitus without complications; Z79.4 - MCC (current) use of insulin (7) Hyperkalemia Current Visit: Yes Status: Acute Assessment and plan: kayexalate ordered x 1 dose (8) DVT prophylaxis Current Visit: Yes Status: Acute Assessment and plan: Heparin sc - Time Spent With Patient Total time spent is greater than 50% in coordination of care (as documented) at patient's floor/unit and/or counseling patient:
[2019-07-03] MEDS ORDERED: Ondansetron 4 MG/2 ML VIAL IVP PRN (17:19)
[2019-07-03] MEDS: Acetaminophen 325 MG TABLET PO PRN (18:25)
[2019-07-03] MEDS: Benzonatate 100 MG CAPSULE PO PRN (18:25)
[2019-07-03] MEDS: Insulin LISPRO 300 UNITS/3 ML VIAL SQ SCH (18:26)
[2019-07-03] MEDS: Lisinopril 20 MG TABLET PO SCH (18:27)
[2019-07-03] MEDS ORDERED: GuaiFENesin Liq 200 MG/10 ML UDC PO PRN (18:59)
[2019-07-03] MEDS: rOPINIRole 0.25 MG TABLET PO SCH (20:34)
[2019-07-03] MEDS: Mirtazapine 15 MG TABLET PO SCH (20:34)
[2019-07-03] MEDS: risperiDONE 0.25 MG TABLET PO SCH (20:35)
[2019-07-03] MEDS: traZODone 50 MG TABLET PO SCH (20:35)
[2019-07-03] MEDS: Insulin DETEMIR 100 UNIT/ML X5UNITS SQ SCH (20:36)
[2019-07-03] MEDS ORDERED: Sucralfate 1 GM TABLET PO SCH (21:00)
[2019-07-04] MEDS: Acetaminophen 325 MG TABLET PO PRN ×3 (00:31→17:39)
[2019-07-04 02:47] LABS: Acinetobacter baumannii by PCR Not Detected (Not Detect); Candida albicans by PCR Not Detected (Not Detect); Candida glabrata by PCR Not Detected (Not Detect); Candida krusei by PCR Not Detected (Not Detect); Candida parapsilosis by PCR Not Detected (Not Detect); Candida tropicalis by PCR Not Detected (Not Detect); Enterobacter cloacae Cmplx PCR Not Detected (Not Detect); Enterobacteriaceae by PCR Not Detected (Not Detect); Enterococcus by PCR Not Detected (Not Detect); Escherichia coli by PCR Not Detected (Not Detect); Klebsiella oxytoca by PCR Not Detected (Not Detect); Klebsiella pneumoniae by PCR Not Detected (Not Detect); Proteus by PCR Not Detected (Not Detect); Pseudomonas aeruginosa by PCR Not Detected (Not Detect); Serratia marcescens by PCR Not Detected (Not Detect); Staphylococcus aureus by PCR DETECTED (Not Detect); Streptococcus agalactiae(B)PCR Not Detected (Not Detect); Streptococcus by PCR Not Detected (Not Detect); Streptococcus pneumoniae PCR Not Detected (Not Detect); Streptococcus pyogenes (A) PCR Not Detected (Not Detect); blaKPC Carbapenem-Resist Gene Not Detected (Not Detect); mecA Methicillin-Resist Gene DETECTED (Not Detect); vanA/B Vancomycin-Resist Genes Not Detected (Not Detect)
[2019-07-04 03:31] LABS: Basophils % 0.2 %; Eosinophils % 0.3 %; Hematocrit 30.8 % (35.3-44.9); Hemoglobin 10.1 g/dL (11.5-15.4); Immature Granulocytes % 0.2 % (0-4); Lymphocytes # 0.2 K/mcL (0.6-4.6); Mean Corpuscular HGB Conc 32.8 g/dL (31.6-35.5); Mean Corpuscular Hemoglobin 33.8 pg (28.0-33.3); Mean Platelet Volume 10.2 fL (9.4-12.4); Monocytes # 0.4 K/mcL (0.0-1.3); Monocytes % 6.4 %; Neutrophils # 5.9 K/mcL (1.6-8.9); Platelet Count 105 K/mcL (140-400); Red Blood Count 2.99 M/mcL (3.82-4.97); Red Cell Distribution Width 13.7 % (11.5-14.5); Segmented Neutrophils % 89.9 %; White Blood Count 6.6 K/mcL (4.3-11.1)
[2019-07-04 03:51] LABS: Calcium 8.4 mg/dL (8.6-10.3); Magnesium 1.7 mg/dL (1.6-2.6); Phosphorous 4.6 mg/dL (2.7-4.5); Potassium 4.8 mEq/L (3.5-5.1)
[2019-07-04] MEDS: *HR* Heparin 5,000 UNIT/ML VIAL SQ SCH ×2 (05:02→17:39)
[2019-07-04] MEDS: Benzonatate 100 MG CAPSULE PO PRN (05:33)
[2019-07-04] MEDS ORDERED: 0.9 % Sodium Chloride 250 ML IVC PRN (08:06)
[2019-07-04] MEDS ORDERED: 0.9 % Sodium Chloride 1,000 ML PRIME SCH (08:15)
--- NOTE | 2019-07-04 08:50 | Urology - Consult Note ---
<Cynthia Martinez N - Last Filed: 07/04/19 08:47> Date of Encounter: 07/04/19 Time of Encounter: 08:30 - Assessment and Plan (1) UTI (urinary tract infection) Current Visit: Yes Status: Acute Assessment and plan: Patient is a 68-year-old female who presents with a complicated urinary tract infection. Reviewed CT images, bilateral ureteral stents appear properly positioned, and bladder does not appear overdistended. Vital signs are currently stable and afebrile to 99.9F. Patient has sustained a maximum temperature to 103.2F on admission. Preliminary blood culture is positive for gram-positive cocci. Patient is receiving IV ertapenem and linezolid. At this time, I do not anticipate any urologic surgical intervention. Qualifiers: Urinary tract infection type: site unspecified Hematuria presence: without hematuria Qualified Code(s): N39.0 - Urinary tract infection, site not specified (2) Incomplete bladder emptying Current Visit: Yes Status: Acute Assessment and plan: Patient is a 68-year-old female who presents with incomplete bladder emptying. An order has been placed for intermittent straight catheterization. I will discuss this with Dr. Welch, and we may place an order for an indwelling Khanna for maximal drainage secondary to infection. (3) Hydronephrosis due to obstruction of ureter Current Visit: No Status: Acute Assessment and plan: Patient is a 68-year-old female who presents with hydronephrosis. Patient currently has bilateral indwelling ureteral stents that appear to be properly functioning. Stents were recently exchanged on 05/17/2019. (4) Sepsis Current Visit: Yes Status: Acute Assessment and plan: Patient is a 68-year-old female who presents with sepsis. Preliminary blood cultures are positive for gram-positive cocci. Patient is receiving broad antimicrobial coverage, and infectious disease is following. We are awaiting final cultures. Qualifiers: Sepsis type: sepsis due to unspecified organism Sepsis acute organ dysfunction status: without acute organ dysfunction Qualified Code(s): A41.9 - Sepsis, unspecified organism Urology CN:HPI Consult date: 07/04/19 Reason for consult Urology: Other (UTI; indwelling ureteral stents) Requesting physician: Rupal Godoy History of present illness: Patient is a 68-year-old female well-known to our service who presents with chronic indwelling ureteral stents, incomplete bladder emptying and recurrent, multi drug resistant urinary tract infections. Patient is status post bilateral ureteral stent exchange by Dr. Wu on 05/17/2019. Patient presented to [facility] emergency department from [facility] care facility with concern for urinary tract infection secondary to fatigue, dysuria and fever to 103F. Patient is unable to actively participate in history or physical due to confusion and lethargy. Historically, patient was not undergoing intermittent catheterization 3 times daily as instructed, and she is unable to recall if she is being straight catheterized at her facility. Patient underwent abdomen and pelvis CT confirming proper bilateral ureteral stent placement without evidence of obstruction. Preliminary blood cultures are positive for gram-positive cocci. Past Med Surg Social Fam HX - Past Medical History Medical history: arthritis, cancer, coronary artery disease, diabetes, dialysis, GERD, hyperlipidemia, hypertension, myocardial infarction, peripheral artery disease, renal disease, other Additional medical history: neuropathy, insomnia Psychiatric history: anxiety, depression - Past Surgical History Surgical History: appendectomy, cholecystectomy, coronary bypass (CABG), hysterectomy, MONIQUE/BSO, ureteral stent, other Additional surgical history: egd/colonoscopy, renal stents, fistula - Social History Smoking Status: Never smoker Smokeless Tobacco Status: No Alcohol use: none Drug use: none - Family History Mother Living Status: Hx Family Endocrine Disorder: (DM) Father Adopted: No Hx Family Cardiac Disorders: Yes ("heart troubles") Hx Family Cancer: Yes (Prostate cancer) Hx Family Endocrine Disorder: Yes (DM) Brother Hx Family Cardiac Disorders: Yes (CAD) Hx Family Cancer: Yes (lung cancer) Medications and Allergies Folic Acid 1 mg PO QAM 07/10/15 [History] Levothyroxine [Synthroid] 50 mcg PO QAM 07/10/15 [History] Atorvastatin [Lipitor] 40 mg PO HS 03/17/17 [History] Clopidogrel [Plavix] 75 mg PO QPM 05/09/17 [History] Sucralfate [Carafate] 1 gm PO BID 05/09/17 [History] Furosemide [Lasix] 20 mg PO QAM 03/01/18 [History] Amitriptyline [Elavil] 25 mg PO HS 03/26/18 [History] Ergocalciferol (VITAMIN D2) [Drisdol] 50,000 unit PO MO 03/26/18 [History] Insulin DETEMIR [Levemir] 12 unit SQ QAM 03/26/18 [History] Tamsulosin [Flomax] 0.4 mg PO QPM 03/26/18 [History] Lisinopril [Zestril] 20 mg PO SUTUTHSA 07/31/18 [History] Insulin DETEMIR [Levemir Flextouch] 14 unit SQ HS 08/06/18 [History] Aspirin Enteric Coated [Aspirin EC] 81 mg PO QAM 09/04/18 [History] Calcium Carbonate [Calcium] 500 mg PO BID 09/04/18 [History] Midodrine [ProAmatine] 5 mg PO MOWEFR 09/04/18 [History] Oxybutynin Chloride [Ditropan XL] 10 mg PO QAM 09/04/18 [History] Albuterol Sulfate [Proventil Inhaler] 2 puff IH Q4H PRN 12/13/18 [History] Ondansetron HCl [Zofran] 4 mg PO Q8H PRN 12/13/18 [History] RisperiDONE [Risperdal] 0.5 mg PO BID 12/13/18 [History] Ropinirole HCl [Requip] 0.25 mg PO HS 12/13/18 [History] Guaifenesin [Mucinex] 600 mg PO Q12H 01/29/19 [History] Insulin Regular, Human [Novolin R] 5 unit IJ TIDWM 01/29/19 [History] Meclizine [Antivert] 12.5 mg PO TID 01/29/19 [History] Acetaminophen [Tylenol 8 Hour] 650 mg PO QID PRN 05/17/19 [History] Guaifenesin/Codeine Phosphate [Guaifen-Codeine 100-10 mg/5 ml] 10 ml PO QID PRN 05/17/19 [History] Ipratropium/Albuterol Sulfate [Iprat-Albut 0.5-3(2.5) mg/3 ml] 3 ml IH QID PRN 05/17/19 [History] Cyclobenzaprine HCl 5 mg PO TID 07/03/19 [History] Diphenoxylate/Atropine [Lomotil 2.5 mg/0.025 mg] 1 tab PO QID PRN 07/03/19 [History] Metoprolol Succinate [Toprol Xl] 25 mg PO SUTUTHSA 07/03/19 [History] Mirtazapine 7.5 mg PO HS 07/03/19 [History] Pantoprazole Sodium [Protonix] 40 mg PO BID 07/03/19 [History] Trazodone HCl 50 mg PO HS 07/03/19 [History] Allergy/AdvReac Type Severity Reaction Status Date / Time latex Allergy Rash Verified 07/03/19 22:23 Sulfa (Sulfonamide Allergy Rash Verified 07/03/19 22:23 Antibiotics) adhesive tape AdvReac "RIPPED Verified 07/03/19 22:23 SKIN OFF" Review of Systems ROS unobtainable: due to mental status Exam Initial Vital Signs Temp Pulse Resp BP Pulse Ox 103.2 F H 100 28 155/63 96 07/03/19 12:38 07/03/19 12:38 07/03/19 12:38 07/03/19 12:38 07/03/19 12:38 - General physical appearance Present: no distress, no pain, chronically ill - Eyes Present: PERRL, normal ocular movement - ENT Present: no congestion, decreased hearing - Neck Present: no masses, trachea midline, no lymphadenopathy - Respiratory Present: normal respiratory effort - Cardiovascular Cardiovascular exam IM: RRR - Abdomen Abdomen: Present: soft, non tender. Absent: distended - Genitourinary Present: other (no CVAT) - Integumentary Present: no rash, no abnormal pigmentation - Neurologic Present: disoriented - Musculoskeletal Present: other (normal posture ) Urology Results - Labs 07/04/19 03:21 07/04/19 03:21 Abnormal lab results RBC 2.99 M/mcL (3.82-4.97) L 07/04/19 03:21 Hgb 10.1 g/dL (11.5-15.4) L 07/04/19 03:21 Hct 30.8 % (35.3-44.9) L 07/04/19 03:21 MCV 103.0 fL (83.0-100.0) H 07/04/19 03:21 MCH 33.8 pg (28.0-33.3) H 07/04/19 03:21 Plt Count 105 K/mcL (140-400) L 07/04/19 03:21 Band Neutrophils % 12.0 % (0-4) H 07/03/19 13:10 Neutrophils # 9.1 K/mcL (1.6-8.9) H 07/03/19 13:10 Lymphocytes # 0.2 K/mcL (0.6-4.6) L 07/04/19 03:21 Platelet Estimate Slight Decrease (Normal) L 07/03/19 13:10 PT 15.1 Seconds (9.4-12.1) H 07/03/19 13:10 APTT 19.8 Seconds (26.0-36.0) L 07/03/19 13:10 Sodium 129 mEq/L (136-145) L 07/04/19 03:21 Potassium 5.4 mEq/L (3.5-5.1) H 07/03/19 13:10 Chloride 96 mEq/L (98-107) L 07/04/19 03:21 Carbon Dioxide 21 mEq/L (23-29) L 07/04/19 03:21 BUN 68 mg/dL (8-23) H 07/04/19 03:21 Creatinine 4.51 mg/dL (0.60-1.20) H 07/04/19 03:21 Est GFR ( Amer) 12 (> 60) L 07/04/19 03:21 Est GFR (Non-Af Amer) 10 (> 60) L 07/04/19 03:21 Glucose 148 mg/dL (70-105) H 07/04/19 03:21 POC Glucose 156 mg/dL (70-99) H 07/03/19 16:56 Hemoglobin A1c 7.2 % (-5.6) H 07/03/19 13:10 Calcium 8.4 mg/dL (8.6-10.3) L 07/04/19 03:21 Phosphorus 4.6 mg/dL (2.7-4.5) H 07/04/19 03:21 Alkaline Phosphatase 133 Units/L (34-104) H 07/03/19 13:10 Troponin I 0.05 ng/mL (< 0.04) H* 07/04/19 03:21 Urine Clarity Turbid (Clear) A 07/03/19 13:09 Urine Protein >=300 mg/dL (Neg-Trace) H 07/03/19 13:09 Urine Blood Large (Negative) H 07/03/19 13:09 Ur Leukocyte Esterase Large (Negative) H 07/03/19 13:09 Urine Microscopic RBC 30-50 per hpf (0-3) H 07/03/19 13:09 Urine Microscopic WBC TNTC per hpf (0-3) H 07/03/19 13:09 Ur Squamous Epith Cells Many per lpf (None-Few) H 07/03/19 13:09 Urine Bacteria Many per hpf (None-Few) H 07/03/19 13:09 Ur Culture Indicated? YES (NO) A 07/03/19 13:09 Staph aureus (PCR) DETECTED (Not Detect) A 07/03/19 13:14 mecA-Methicil Res Gene DETECTED (Not Detect) A 07/03/19 13:14 Diabetes panel 07/03/19 07/03/19 07/04/19 Range/Units 13:10 13:10 03:21 Sodium 129 L 129 L (136-145) mEq/L Potassium 5.4 H 4.8 (3.5-5.1) mEq/L Chloride 95 L 96 L (98-107) mEq/L Carbon Dioxide 23 21 L (23-29) mEq/L BUN 59 H 68 H (8-23) mg/dL Creatinine 3.55 H 4.51 H (0.60-1.20) mg/dL Glucose 203 H 148 H (70-105) mg/dL Hemoglobin A1c 7.2 H ( - 5.6) % Calcium 8.8 8.4 L (8.6-10.3) mg/dL AST 35 (13-39) Units/L ALT 36 (7-52) Units/L Alkaline Phosphatase 133 H (34-104) Units/L Albumin 3.6 (3.5-5.7) g/dL Calcium panel 07/03/19 07/04/19 Range/Units 13:10 03:21 Calcium 8.8 8.4 L (8.6-10.3) mg/dL Phosphorus 2.7 4.6 H (2.7-4.5) mg/dL Albumin 3.6 (3.5-5.7) g/dL Pituitary panel 07/03/19 07/04/19 Range/Units 13:10 03:21 Sodium 129 L 129 L (136-145) mEq/L Potassium 5.4 H 4.8 (3.5-5.1) mEq/L Chloride 95 L 96 L (98-107) mEq/L Carbon Dioxide 23 21 L (23-29) mEq/L BUN 59 H 68 H (8-23) mg/dL Creatinine 3.55 H 4.51 H (0.60-1.20) mg/dL Glucose 203 H 148 H (70-105) mg/dL Calcium 8.8 8.4 L (8.6-10.3) mg/dL Adrenal panel 07/03/19 07/04/19 Range/Units 13:10 03:21 Sodium 129 L 129 L (136-145) mEq/L Potassium 5.4 H 4.8 (3.5-5.1) mEq/L Chloride 95 L 96 L (98-107) mEq/L Carbon Dioxide 23 21 L (23-29) mEq/L BUN 59 H 68 H (8-23) mg/dL Creatinine 3.55 H 4.51 H (0.60-1.20) mg/dL Glucose 203 H 148 H (70-105) mg/dL Calcium 8.8 8.4 L (8.6-10.3) mg/dL Total Bilirubin 0.4 (0.3-1.0) mg/dL AST 35 (13-39) Units/L ALT 36 (7-52) Units/L Alkaline Phosphatase 133 H (34-104) Units/L Albumin 3.6 (3.5-5.7) g/dL All other labs normal. - Imaging CT scan - abdomen: report reviewed, image reviewed CT scan - pelvis: report reviewed, image reviewed Consult Discharge Plan - Plan Referrals: Jozef Sahu MD [Primary Care Provider] - <Eliud Welch - Last Filed: 07/04/19 17:53> Date of Encounter: 07/04/19 - Assessment and Plan (1) Sepsis Current Visit: Yes Status: Acute Assessment and plan: Patient known to the urology service. 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 I reviewed the CT scan and appears the stents are in proper position without significant hydronephrosis. I do not feel they require exchanging at this time. In addition her blood cultures are growing gram- positive organism. Previous urine cultures were gram-negative. Current urine cultures are pending. Preliminary cultures indicate the sepsis may not be from a organism. Enterococcus is still possible. Will follow. Continue intermittent catheterization as ordered Qualifiers: Sepsis type: sepsis due to unspecified organism Sepsis acute organ dysfunction status: without acute organ dysfunction Qualified Code(s): A41.9 - Sepsis, unspecified organism Exam Initial Vital Signs Temp Pulse Resp BP Pulse Ox 103.2 F H 100 28 155/63 96 07/03/19 12:38 07/03/19 12:38 07/03/19 12:38 07/03/19 12:38 07/03/19 12:38 Urology Results - Labs 07/04/19 03:21 07/04/19 03:21 Abnormal lab results RBC 2.99 M/mcL (3.82-4.97) L 07/04/19 03:21 Hgb 10.1 g/dL (11.5-15.4) L 07/04/19 03:21 Hct 30.8 % (35.3-44.9) L 07/04/19 03:21 MCV 103.0 fL (83.0-100.0) H 07/04/19 03:21 MCH 33.8 pg (28.0-33.3) H 07/04/19 03:21 Plt Count 105 K/mcL (140-400) L 07/04/19 03:21 Band Neutrophils % 12.0 % (0-4) H 07/03/19 13:10 Neutrophils # 9.1 K/mcL (1.6-8.9) H 07/03/19 13:10 Lymphocytes # 0.2 K/mcL (0.6-4.6) L 07/04/19 03:21 Platelet Estimate Slight Decrease (Normal) L 07/03/19 13:10 PT 15.1 Seconds (9.4-12.1) H 07/03/19 13:10 APTT 19.8 Seconds (26.0-36.0) L 07/03/19 13:10 Sodium 129 mEq/L (136-145) L 07/04/19 03:21 Potassium 5.4 mEq/L (3.5-5.1) H 07/03/19 13:10 Chloride 96 mEq/L (98-107) L 07/04/19 03:21 Carbon Dioxide 21 mEq/L (23-29) L 07/04/19 03:21 BUN 68 mg/dL (8-23) H 07/04/19 03:21 Creatinine 4.51 mg/dL (0.60-1.20) H 07/04/19 03:21 Est GFR ( Amer) 12 (> 60) L 07/04/19 03:21 Est GFR (Non-Af Amer) 10 (> 60) L 07/04/19 03:21 Glucose 148 mg/dL (70-105) H 07/04/19 03:21 POC Glucose 205 mg/dL (70-99) H 07/03/19 20:04 Hemoglobin A1c 7.2 % (-5.6) H 07/03/19 13:10 Calcium 8.4 mg/dL (8.6-10.3) L 07/04/19 03:21 Phosphorus 4.6 mg/dL (2.7-4.5) H 07/04/19 03:21 Alkaline Phosphatase 133 Units/L (34-104) H 07/03/19 13:10 Troponin I 0.05 ng/mL (< 0.04) H* 07/04/19 03:21 Urine Clarity Turbid (Clear) A 07/03/19 13:09 Urine Protein >=300 mg/dL (Neg-Trace) H 07/03/19 13:09 Urine Blood Large (Negative) H 07/03/19 13:09 Ur Leukocyte Esterase Large (Negative) H 07/03/19 13:09 Urine Microscopic RBC 30-50 per hpf (0-3) H 07/03/19 13:09 Urine Microscopic WBC TNTC per hpf (0-3) H 07/03/19 13:09 Ur Squamous Epith Cells Many per lpf (None-Few) H 07/03/19 13:09 Urine Bacteria Many per hpf (None-Few) H 07/03/19 13:09 Ur Culture Indicated? YES (NO) A 07/03/19 13:09 Staph aureus (PCR) DETECTED (Not Detect) A 07/03/19 13:14 mecA-Methicil Res Gene DETECTED (Not Detect) A 07/03/19 13:14 Diabetes panel 07/04/19 Range/Units 03:21 Sodium 129 L (136-145) mEq/L Potassium 4.8 (3.5-5.1) mEq/L Chloride 96 L (98-107) mEq/L Carbon Dioxide 21 L (23-29) mEq/L BUN 68 H (8-23) mg/dL Creatinine 4.51 H (0.60-1.20) mg/dL Glucose 148 H (70-105) mg/dL Calcium 8.4 L (8.6-10.3) mg/dL Calcium panel 07/04/19 Range/Units 03:21 Calcium 8.4 L (8.6-10.3) mg/dL Phosphorus 4.6 H (2.7-4.5) mg/dL Pituitary panel 07/04/19 Range/Units 03:21 Sodium 129 L (136-145) mEq/L Potassium 4.8 (3.5-5.1) mEq/L Chloride 96 L (98-107) mEq/L Carbon Dioxide 21 L (23-29) mEq/L BUN 68 H (8-23) mg/dL Creatinine 4.51 H (0.60-1.20) mg/dL Glucose 148 H (70-105) mg/dL Calcium 8.4 L (8.6-10.3) mg/dL Adrenal panel 07/04/19 Range/Units 03:21 Sodium 129 L (136-145) mEq/L Potassium 4.8 (3.5-5.1) mEq/L Chloride 96 L (98-107) mEq/L Carbon Dioxide 21 L (23-29) mEq/L BUN 68 H (8-23) mg/dL Creatinine 4.51 H (0.60-1.20) mg/dL Glucose 148 H (70-105) mg/dL Calcium 8.4 L (8.6-10.3) mg/dL All other labs normal.
[2019-07-04] MEDS: Cholecalciferol (D-3) 1,000 UNIT (25MCG) TABLET PO SCH (08:57)
[2019-07-04] MEDS: Aspirin Enteric Coated 81 MG Tablet PO SCH (08:57)
[2019-07-04] MEDS: risperiDONE 0.25 MG TABLET PO SCH ×2 (08:57→21:59)
[2019-07-04] MEDS: Renal Vitamin 1 CAP CAPSULE PO SCH (08:58)
[2019-07-04] MEDS: Insulin DETEMIR 100 UNIT/ML X5UNITS SQ SCH ×2 (08:58→22:04)
[2019-07-04] MEDS: Folic Acid 1 MG TABLET PO SCH (08:58)
[2019-07-04] MEDS: Insulin LISPRO 300 UNITS/3 ML VIAL SQ SCH ×3 (08:59→16:48)
[2019-07-04] MEDS: Sucralfate 1 GM TABLET PO SCH ×2 (09:00→17:39)
--- NOTE | 2019-07-04 09:41 | Infectious Disease Consult ---
Infectious Disease-Consult - Encounter Date/Time Date of Encounter: 07/04/19 Time of Encounter: 09:37 - Data of Consult Patient: known to practice within the last 3 years Reason for consult: UTI with hx of multidrug resistant organisms Consult date: 07/04/19 Requesting Physician: Sedrick Sánchez MD Primary Care Provider: Jozef Sahu MD - HPI HPI: MS. Dan is a 68-year-old female with past medical history of diabetes, CAD status post CABG, end-stage renal disease on hemodialysis Tuesday, Tuesday, and Tuesday, PAD, hypertension, hyperlipidemia, and remote history of lung cancer in remission. The patient was admitted to the hospital 07/30/19 for UTI and sepsis. We are consulted 07/04/19 for further workup and treatment recommendations for UTI. Briefly, the patient is a 68-year-old female with past medical history as stated above. The patient presented to the emergency department on the day of admission with complaints of abdominal pain and generally feeling unwell for 3 or 4 days prior to admission. She also reported fever and wheezing with a cough. Upon arrival, she had a fever of 103.2. She was tachycardic and tachypneic. She had a normal white blood cell count, but did have bandemia. Creatinine was elevated consistent with her end-stage renal disease. Lactic acid and LFTs were normal. Troponin was mildly elevated at 0.04. Urinalysis was positive or blood, leukocyte esterase, and white blood cells, but also many epithelial cells. Her urine culture is pending. She had a chest x-ray showed mild vascular congestion with minimal right discoid atelectasis. CT abdomen and pelvis was negative for acute abnormality. Blood cultures were obtained 2 sets. She was started empirically on IV ertapenem and Zyvox and admitted to the hospital for further evaluation. Since admission, the patient has had a MAXIMUM TEMPERATURE of 103.2. Does appear her fever curve has improved overnight. Her white blood cell count remains normal and bandemia has resolved. Blood cultures obtained in the emergency department are +2 out of 2 sets for MRSA per the PCR. Repeat blood cultures drawn 07/04/19 are pending. Nephrology and urology consultations are pending. Currently, she is on IV ertapenem and Zyvox. We have been asked to evaluate and make further recommendations. During my exam today, the patient endorsed history as stated above. She states she developed a fever on the day of admission with subjective chills and rigors. She denies any headache or neck pain. Reports some reproducible left-sided chest pain that she describes muscle spasm. She reports chronic shortness of breath is at baseline with a cough. She reports some nausea with vomiting, but no diarrhea. She endorses generalized abdominal pain, worse in the bilateral lower quadrants that radiates around to the middle of her back. She reports dysuria and urinary frequency as well. She denies any flank or extremity pain. Denies oral thrush or skin rashes. Denies any open lesions. States she has been getting dialysis as she is supposed to. The patient lives at a local clinic care facility. She denies tobacco, alcohol, or illicit drug use. Denies chronic infectious diseases. Denies any pet or animal exposures. Denies any open sores. - ROS Review of Systems: All systems reviewed and no additional remarkable complaints except as stated. - Results CBC & Chem 7: 07/04/19 03:21 07/04/19 03:21 - Exam Vitals: Temp Pulse Resp BP Pulse Ox 99.9 F H 71 18 120/64 100 07/04/19 07:37 07/04/19 07:37 07/04/19 07:37 07/04/19 07:37 07/04/19 07:37 Exam: Head: Atraumatic, normal inspection, normocephalic. Eye: EOMI, PERRLA, no scleral icterus noted. No subconjunctival hemorrhage noted. ENT: Mucous membranes moist. No odontogenic infection noted. Neck: Normal inspection, no meningismus. Respiratory: Clear to auscultation. No rales, respiratory distress, rhonchi, or wheezes noted. Cardiovascular: Regular rate and rhythm, S1 and S2 audible. No murmurs, rubs, or gallops. GI: Soft, obese, normal bowel sounds. Generalized tenderness noted with increased tenderness to the suprapubic area. Extremities:No joint swelling, pedal edema, or tenderness noted. AV fistula noted to the RUE, +/+. Back: Normal inspection. No vertebral tenderness noted. No CVA tenderness noted. Neurological: Alert, oriented 3, no focal deficits. Psychiatric: normal affect, normal mood. Skin: Dry, intact, warm. Normal color. No rashes. No endocarditis stigmata noted. Folic Acid 1 mg PO QAM 07/10/15 [History] Levothyroxine [Synthroid] 50 mcg PO QAM 07/10/15 [History] Atorvastatin [Lipitor] 40 mg PO HS 03/17/17 [History] Clopidogrel [Plavix] 75 mg PO QPM 05/09/17 [History] Sucralfate [Carafate] 1 gm PO BID 05/09/17 [History] Furosemide [Lasix] 20 mg PO QAM 03/01/18 [History] Amitriptyline [Elavil] 25 mg PO HS 03/26/18 [History] Ergocalciferol (VITAMIN D2) [Drisdol] 50,000 unit PO MO 03/26/18 [History] Insulin DETEMIR [Levemir] 12 unit SQ QAM 03/26/18 [History] Tamsulosin [Flomax] 0.4 mg PO QPM 03/26/18 [History] Lisinopril [Zestril] 20 mg PO SUTUTHSA 07/31/18 [History] Insulin DETEMIR [Levemir Flextouch] 14 unit SQ HS 08/06/18 [History] Aspirin Enteric Coated [Aspirin EC] 81 mg PO QAM 09/04/18 [History] Calcium Carbonate [Calcium] 500 mg PO BID 09/04/18 [History] Midodrine [ProAmatine] 5 mg PO MOWEFR 09/04/18 [History] Oxybutynin Chloride [Ditropan XL] 10 mg PO QAM 09/04/18 [History] Albuterol Sulfate [Proventil Inhaler] 2 puff IH Q4H PRN 12/13/18 [History] Ondansetron HCl [Zofran] 4 mg PO Q8H PRN 12/13/18 [History] RisperiDONE [Risperdal] 0.5 mg PO BID 12/13/18 [History] Ropinirole HCl [Requip] 0.25 mg PO HS 12/13/18 [History] Guaifenesin [Mucinex] 600 mg PO Q12H 01/29/19 [History] Insulin Regular, Human [Novolin R] 5 unit IJ TIDWM 01/29/19 [History] Meclizine [Antivert] 12.5 mg PO TID 01/29/19 [History] Acetaminophen [Tylenol 8 Hour] 650 mg PO QID PRN 05/17/19 [History] Guaifenesin/Codeine Phosphate [Guaifen-Codeine 100-10 mg/5 ml] 10 ml PO QID PRN 05/17/19 [History] Ipratropium/Albuterol Sulfate [Iprat-Albut 0.5-3(2.5) mg/3 ml] 3 ml IH QID PRN 05/17/19 [History] Cyclobenzaprine HCl 5 mg PO TID 07/03/19 [History] Diphenoxylate/Atropine [Lomotil 2.5 mg/0.025 mg] 1 tab PO QID PRN 07/03/19 [History] Metoprolol Succinate [Toprol Xl] 25 mg PO SUTUTHSA 07/03/19 [History] Mirtazapine 7.5 mg PO HS 07/03/19 [History] Pantoprazole Sodium [Protonix] 40 mg PO BID 07/03/19 [History] Trazodone HCl 50 mg PO HS 07/03/19 [History] Allergy/AdvReac Type Severity Reaction Status Date / Time latex Allergy Rash Verified 07/03/19 22:23 Sulfa (Sulfonamide Allergy Rash Verified 07/03/19 22:23 Antibiotics) adhesive tape AdvReac "RIPPED Verified 07/03/19 22:23 SKIN OFF" - Assessment and Plan (1) Sepsis Current Visit: Yes Status: Acute The patient had 4 sepsis criteria on admission. Likely secondary to bacteremia and UTI. Improved. Fever curve improved. Bandemia resolved. Tachycardia and tachypnea resolved. Blood cultures drawn 07/03/19 are +2 out of 2 sets for MRSA. Repeat blood cultures from 07/04/19 are pending 2 sets. Qualifiers: Sepsis type: methicillin resistant Staphylococcus aureus Sepsis acute organ dysfunction status: without acute organ dysfunction Qualified Code(s): A41.02 - Sepsis due to Methicillin resistant Staphylococcus aureus SNOMED Code(s): 02721955 (2) Bacteremia Current Visit: Yes Status: Acute Causative organism: MRSA. Source: Unclear. Patient does not appear to have any open wounds. She does have an AV fistula to the right upper extremity but it does not appear acutely infected. Blood cultures drawn 07/03/19 are +2 out of 2 sets for MRSA. Repeat blood cultures from 07/04/19 are pending 2 sets. Consultative due to lack of source. No endocarditis stigmata noted on exam. The patient has one major and one minor modified [place] criteria. Currently on IV Zyvox. SNOMED Code(s): 4988052 (3) UTI (urinary tract infection) Current Visit: Yes Status: Acute Causative organism: Unclear. Urinalysis positive for pyuria, but also appears contaminated. Additionally, the patient is end-stage renal disease and although she does make some urine she does not make much. Her urine will likely always appear pyuric. She is symptomatic, but CT abdomen and pelvis negative for findings indicative of cystitis or pyelonephritis. Urology consulted. Currently on Zyvox and Ertapenem. Qualifiers: Urinary tract infection type: site unspecified Hematuria presence: without hematuria Qualified Code(s): N39.0 - Urinary tract infection, site not specified SNOMED Code(s): 99968367 (4) Nausea & vomiting Current Visit: No Status: Resolved Etiology unclear. CT abdomen and pelvis negative. Appears improved. Qualifiers: Vomiting type: unspecified Vomiting Intractability: non-intractable Qu alified Code(s): R11.2 - Nausea with vomiting, unspecified SNOMED Code(s): 64710316 (5) Chest pain Current Visit: Yes Status: Ruled-out Left sided chest pain that is reproducible. CXR negative for infection. Troponing mildly elevated at 0.04/0.06/0.05. Further workup and mangement per the primary team. Qualifiers: Chest pain type: other chest pain Qualified Code(s): R07.89 - Other chest pain; R07.8 - Other chest pain SNOMED Code(s): 85838704 (6) GERD (gastroesophageal reflux disease) Current Visit: No Status: Chronic Qualifiers: Esophagitis presence: esophagitis presence not specified Qualified Code(s): K21.9 - Gastro-esophageal reflux disease without esophagitis SNOMED Code(s): 408140131 (7) CAD (coronary artery disease) of artery bypass graft Current Visit: No Status: Chronic Qualifiers: [place] vs. transplanted heart: 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 Repeat CT scan December 2018 showed no active disease. Qualifiers: Laterality: right Lung location: unspecified part of lung Qualified Code(s): C34.91 - Malignant neoplasm of unspecified part of right bronchus or lung SNOMED Code(s): 706986988 (9) HLD (hyperlipidemia) Current Visit: No Status: Chronic Qualifiers: Hyperlipidemia type: unspecified Qualified Code(s): E78.5 - Hyperlipidemia, unspecified SNOMED Code(s): 33894059 (10) Anxiety and depression Current Visit: No Status: Acute SNOMED Code(s): 059802070 (11) ESRD (end stage renal disease) Current Visit: Yes Status: Chronic HD M/W/F. Nephrology consulted and following. SNOMED Code(s): 18575436 (12) Peripheral arterial disease Current Visit: No Status: Chronic SNOMED Code(s): 548427247, 992081315 (13) Diabetes mellitus Current Visit: No Status: Chronic Qualifiers: Diabetes mellitus type: type 2 Diabetes mellitus ferry terminal agent insulin use: with ferry terminal agent use Diabetes mellitus complication status: with kidney com plications Diabetes mellitus complication detail: with chronic kidney disease Chronic kidney disease stage: on chronic dialysis Qualified Code(s): E11.22 - Type 2 diabetes mellitus with diabetic chronic kidney disease; N18.6 - End stage renal disease; Z79.4 - prison (current) use of insulin; Z99.2 - Dependence on renal dialysis SNOMED Code(s): 46687000 (14) Drug allergy, antibiotic Current Visit: Yes Status: Acute Sulfa - Hives SNOMED Code(s): 257671213026572 - Recommendations Recommendations: Await blood cultures to finalize. Repeat blood cultures x 2 sets. Check rheumatoid factor. Get TTE. May need NATE prior to discharge. Discontinue Ertapenem and Zyvox. Start Vancomycin IV. Pharmacy to dose. Goal trough ~15. Start Rocephin 2 grams IV daily. Duration of treatment depends on the clinical picture. Monitor labs for vanc toxicity and dose-adjust antibiotics. Contact precautions per hospital policy. Past Med Surg Social Fam HX - Past Medical History Attestation: Yes The following information was validated with the patient. Source: patient, old records reviewed, nursing notes reviewed Medical history: arthritis, cancer (Lung cancer), coronary artery disease, diabetes, dialysis, GERD, hyperlipidemia, hypertension, myocardial infarction, peripheral artery disease, renal disease, other Additional medical history: neuropathy, insomnia Psychiatric history: anxiety, depression - Past Surgical History Surgical History: appendectomy, cholecystectomy, coronary bypass (CABG), hysterectomy, MONIQUE/BSO, ureteral stent, other Additional surgical history: egd/colonoscopy, renal stents, fistula - Social History Smoking Status: Never smoker Smokeless Tobacco Status: No Alcohol use: none Drug use: none Occupational status: retired Current living situation: [facility] Activity Level: Uses cane/walker Recent Out of Country Travel Within the Last 8 Weeks: No Exposure or Possible Exposure to Illness During Travel: No - Family History Mother Living Status: Hx Family Endocrine Disorder: (DM) Father Adopted: No Hx Family Cardiac Disorders: Yes ("heart troubles") Hx Family Cancer: Yes (Prostate cancer) Hx Family Endocrine Disorder: Yes (DM) Brother Hx Family Cardiac Disorders: Yes (CAD) Hx Family Cancer: Yes (lung cancer) Consult Discharge Plan - Plan Referrals: Jozef Sahu MD [Primary Care Provider] - - Attending Attestation I have personally performed a face to face evaluation on this patient. I have re viewed and agree with the care plan. History and Exam by me shows: This is an addendum to original report dictated by Jud Blackman CNP. Please refer to Jud's note for full detail. Any with above findings history of present illness review of system and physical exam findings. Assessment and plan: Sepsis Bacteremia with MRSA 2/2 sets positive 07/03/2019 UTI causative organism not clear Nausea and vomiting resolved ESRD on hemodialysis Recommendations Await blood cultures to finalize. Repeat blood cultures x 2 sets. Check rheumatoid factor. Get TTE. May need NATE prior to discharge. Discontinue Ertapenem and Zyvox. Start Vancomycin IV. Pharmacy to dose. Goal trough ~15. Start Rocephin 2 grams IV daily. Duration of treatment depends on the clinical picture. Monitor labs for vanc toxicity and dose-adjust antibiotics. Contact precautions per hospital policy.
[2019-07-04] MEDS ORDERED: Vancomycin 1 EACH in 0.9 % Sodium Chloride 250 ML IVPB SCH (13:00)
--- NOTE | 2019-07-04 13:05 | Nephrology Consult Note ---
Date of Encounter: 07/04/19 Time of Encounter: 13:02 Assessment and Plan (1) ESRD (end stage renal disease) on dialysis Current Visit: Yes Status: Acute Current regimen is MWF at [facility]. Has not missed any recent sessions. HD in progress for today. Avoid nephrotoxins and renal dose. Strict I/O (2) Nausea & vomiting Current Visit: Yes Status: Acute Continue supportive care. Etiology unclear. Appears improved, no emesis recorded in I/O. Qualifiers: Qualified Code(s): R11.2 - Nausea with vomiting, unspecified (3) Bacteremia Current Visit: Yes Status: Acute Appreciate ID recommendations. (4) UTI (urinary tract infection) Current Visit: Yes Status: Acute Per ID. Qualifiers: Urinary tract infection type: site unspecified Hematuria presence: without hematuria Qualified Code(s): N39.0 - Urinary tract infection, site not specified History of Present Illness - Reason for Consult Consult date: 07/04/19 end stage renal disease Requesting physician: Yuliana Terrazas - Chief Complaint wheezing - History of Present Illness Ms. Dan is a 68 year old female who presented to ED with wheezing for "a few days". Also c/o of suprapubic pain, fever, and chills which she attributes to a UTI. She has chronic hydronephrosis and complicated UTI's. PMH: CAD, HTN, HLD, DM, and ESRD. Current regimen is MWF at [facility], has not missed any sessions recently. She is a resident of [facility]. Admits to fever, chills, nausea, vomiting, and diarrhea. Denies chest pain or shortness of breath. She resides in [facility]. Denies etoh, tobacco, or illicit drug use. HD in progress for today. No FH of CKD or HD. Past Med Surg Social Fam HX - Past Medical History Medical history: arthritis, cancer (Lung cancer), coronary artery disease, diabetes, dialysis, GERD, hyperlipidemia, hypertension, myocardial infarction, peripheral artery disease, renal disease, other Additional medical history: neuropathy, insomnia Psychiatric history: anxiety, depression - Past Surgical History Surgical History: appendectomy, cholecystectomy, coronary bypass (CABG), hysterectomy, MONIQUE/BSO, ureteral stent, other Additional surgical history: egd/colonoscopy, renal stents, fistula - Social History Smoking Status: Never smoker Smokeless Tobacco Status: No Alcohol use: none Drug use: none - Family History Mother Living Status: Hx Family Endocrine Disorder: (DM) Father Adopted: No Hx Family Cardiac Disorders: Yes ("heart troubles") Hx Family Cancer: Yes (Prostate cancer) Hx Family Endocrine Disorder: Yes (DM) Brother Hx Family Cardiac Disorders: Yes (CAD) Hx Family Cancer: Yes (lung cancer) Medications and Allergies RX: Folic Acid 1 mg PO QAM 07/10/15 [History] RX: Levothyroxine [Synthroid] 50 mcg PO QAM 07/10/15 [History] RX: Atorvastatin [Lipitor] 40 mg PO HS 03/17/17 [History] RX: Clopidogrel [Plavix] 75 mg PO QPM 05/09/17 [History] RX: Sucralfate [Carafate] 1 gm PO BID 05/09/17 [History] RX: Furosemide [Lasix] 20 mg PO QAM 03/01/18 [History] RX: Amitriptyline [Elavil] 25 mg PO HS 03/26/18 [History] RX: Ergocalciferol (VITAMIN D2) [Drisdol] 50,000 unit PO MO 03/26/18 [History] RX: Insulin DETEMIR [Levemir] 12 unit SQ QAM 03/26/18 [History] RX: Tamsulosin [Flomax] 0.4 mg PO QPM 03/26/18 [History] RX: Lisinopril [Zestril] 20 mg PO SUTUTH 07/31/18 [History] RX: Insulin DETEMIR [Levemir Flextouch] 14 unit SQ 08/06/18 [History] RX: Aspirin Enteric Coated [Aspirin EC] 81 mg PO QAM 09/04/18 [History] RX: Calcium Carbonate [Calcium] 500 mg PO BID 09/04/18 [History] RX: Midodrine [ProAmatine] 5 mg PO MOWEFR 09/04/18 [History] RX: Oxybutynin Chloride [Ditropan XL] 10 mg PO QAM 09/04/18 [History] RX: Albuterol Sulfate [Proventil Inhaler] 2 puff IH Q4H PRN 12/13/18 [History] RX: Ondansetron HCl [Zofran] 4 mg PO Q8H PRN 12/13/18 [History] RX: RisperiDONE [Risperdal] 0.5 mg PO BID 12/13/18 [History] RX: Ropinirole HCl [Requip] 0.25 mg PO HS 12/13/18 [History] RX: Guaifenesin [Mucinex] 600 mg PO Q12H 01/29/19 [History] RX: Insulin Regular, Human [Novolin R] 5 unit IJ TIDWM 01/29/19 [History] RX: Meclizine [Antivert] 12.5 mg PO TID 01/29/19 [History] RX: Acetaminophen [Tylenol 8 Hour] 650 mg PO QID PRN 05/17/19 [History] RX: Guaifenesin/Codeine Phosphate [Guaifen-Codeine 100-10 mg/5 ml] 10 ml PO QID PRN 05/17/19 [History] RX: Ipratropium/Albuterol Sulfate [Iprat-Albut 0.5-3(2.5) mg/3 ml] 3 ml IH QID PRN 05/17/19 [History] Cyclobenzaprine HCl 5 mg PO TID 07/03/19 [History] Mirtazapine 7.5 mg PO HS 07/03/19 [History] RX: Diphenoxylate/Atropine [Lomotil 2.5 mg/0.025 mg] 1 tab PO QID PRN 07/03/19 [History] RX: Metoprolol Succinate [Toprol Xl] 25 mg PO SUTUTHSA 07/03/19 [History] RX: Pantoprazole Sodium [Protonix] 40 mg PO BID 07/03/19 [History] Trazodone HCl 50 mg PO HS 07/03/19 [History] Allergy/AdvReac Type Severity Reaction Status Date / Time latex Allergy Rash Verified 07/03/19 22:23 Sulfa (Sulfonamide Allergy Rash Verified 07/03/19 22:23 Antibiotics) adhesive tape AdvReac "RIPPED Verified 07/03/19 22:23 SKIN OFF" Review of Systems All Systems review (narrative): The remainder of the systems are negative. Constitutional: chills, fatigue, fever(s) Cardiovascular: dyspnea, no chest pain, no edema Respiratory: wheezing Gastrointestinal: abdominal pain, diarrhea, nausea, vomiting, no melena Genitourinary Female: other (subrapubic pain), no hematuria Exam - Vital Signs Vital signs: Initial Vital Signs Temp Pulse Resp BP Pulse Ox 103.2 F H 100 28 155/63 96 07/03/19 12:38 07/03/19 12:38 07/03/19 12:38 07/03/19 12:38 07/03/19 12:38 Vital Signs - Last 8 Hours Temp Pulse Resp BP Pulse Ox 07/04/19 09:45 116/50 07/04/19 09:30 98.9 F 18 114/58 07/04/19 07:37 99.9 F H 71 18 120/64 100 Intake and Output 07/03/19 07/04/19 07/04/19 23:59 07:59 15:59 Intake Total 900 / 1400 300 / 1140 840 / 1140 Output Total 0 / 0 0 / 0 Balance 900 / 1400 300 / 1140 840 / 1140 Intake: IV Fluids 900 / 1400 300 / 300 0.9 % Sodium Chloride 1,000 ML 500 / 1000 @ 999 mls/hr IVC .Q1H1M [facility] Rx# :[id number] INVanz 500 MG In 0.9 % Sodium 100 / 100 Chloride 100 ML @ 100 mls/hr IVPB Q24H [facility] Rx#:[id number] Zyvox Premix 600mg/300mL 600 mg 300 / 300 300 / 300 In 300 ml @ 150 mls/hr IVPB Q12H [facility] Rx#:[id number] Oral 0 / 0 240 / 240 Intake, Rinseback and Flushes 600 / 600 Output: Urine 0 / 0 0 / 0 Other: Meal Breakfast Percent of Meal Consumed 100% Stool Size Large Stool Consistency formed Stool Characteristics Normal for Patient Stool Color Brown # Voids 1 # Bowel Movements 1 Weight 84.5 kg Blood Glucose* 205 157 117 Hemodialysis Net Fluid Removed 257 (mL) - General Appearance General appearance: chronically ill, frail EENT: hearing intact, vision intact, exudate Neck: supple Respiratory: clear Cardiology: edema (facial edema noted.), normal S1, normal S2 - Dialysis Access Dialysis Vascular Access: Arteriovenous Graft thrill: Yes bruit: Yes Gastrointestinal: normoactive bowel sounds, no tenderness, no guarding Integumentary: no rash, warm and dry Neurologic: alert and oriented x3 Musculoskeletal: no deformities, no erythema Psychiatric: mood/affect appropriate, cooperative Results - Lab Results 07/04/19 03:21 07/04/19 03:21 Most recent lab results 07/04/19 03:21 Calcium 8.4 L Phosphorus 4.6 H Magnesium 1.7 Consult Discharge Plan - Plan Referrals: Jozef Sahu MD [Primary Care Provider] -
[2019-07-04] MEDS: cefTRIAXone 2,000 MG in 0.9 % Sodium Chloride Mini Bag 100 ML IVPB SCH (13:19)
--- NOTE | 2019-07-04 14:22 | Internal Med Progress Note ---
Hospitalist Progress Note - Encounter Date of Encounter: 07/04/19 Time of Encounter: 14:19 - Subjective Interval History: I have seen and evaluated the patient at bedside. Patient reported generalized body aches. denies nausea, vomiting or abdominal pain, denies chest pain. - Exam Vitals: Temp Pulse Resp BP Pulse Ox 98.9 F 71 18 120/56 100 07/04/19 09:30 07/04/19 07:37 07/04/19 09:30 07/04/19 10:15 07/04/19 07:37 Exam: Vitals: Reviewed General: Alert and oriented x3. In mild distress due to generalized weakness. Cardiovascular: RRR, normal S1 & S2, no rubs, murmurs or gallops. Lungs: CTA b/l, no wheezes or crackles. Abdomen: Obese, soft, non-tender, no rigidity. Extremities: No deformity, no edema or tenderness, no joint swelling or clubbing. Neurological: No focal neurological abnormalities. Rest of the physical exam is non contributory - Assessment and Plan (1) UTI (urinary tract infection) Current Visit: Yes Status: Acute (2) Sepsis Current Visit: Yes Status: Acute (3) Chest pain Current Visit: Yes Status: Ruled-out (4) ESRD (end stage renal disease) Current Visit: Yes Status: Chronic (5) Diabetes mellitus Current Visit: Yes Status: Acute (6) Diastolic CHF Current Visit: Yes Status: Chronic (7) DVT prophylaxis Current Visit: Yes Status: Acute (8) Bacteremia Current Visit: Yes Status: Acute (9) Elevated troponin Current Visit: Yes Status: Acute (10) HLD (hyperlipidemia) Current Visit: No Status: Chronic (11) CAD (coronary artery disease) Current Visit: No Status: Chronic (12) Depression Current Visit: No Status: Chronic (13) Hydronephrosis Current Visit: No Status: Chronic (14) Hypertension Current Visit: No Status: Chronic (15) Hypothyroidism Current Visit: No Status: Chronic - Summary of Assessment and Plan Summary of Assessment and Plan: 68 year old female with pmh of diabetes, hypertension, bilateral ureteral stent placement for hydronephrosis presenting with complaints of nausea and vomiting of 1 day duration. Patient admitted to the hospital due to sepsis. Assessment: 1. Sepsis 2. Bacteremia 3. UTI 4. Hyponatremia 5. DM 6. ESRD 7. B/L hydronephrosis 8. HTN 9. HLD 10. elevated trops. Plan Blood culture: growing gram positive cocci. MRSA on PCR - dc linesolid. started on Vancomycin per pharmacy protocol - on ertapenem due to Hx of MRDO E.coli in the urine. urine culture: pending. - ID consulted for antibiotics management. - Patient is on clopidogrel 75 mg by mouth daily. - Blood sugar is well controlled with short and long-acting insulin. - c/w levothyroxine, home dose - On PPIs and anti-emetics - Heparin subq Disposition: patient to remain in the hospital due to sepsis, bacteremia on broad spectrum IV antibiotics. - Time Spent with Patient Total time spent is greater than 50% in coordination of care (as documented) at patient's floor/unit and/or counseling patient: Greater than 35 minutes (45) Plan of Care Discussed with: patient (and the nurse.) Internal Medicine: Result - Labs CBC & Chem 7: 07/04/19 03:21 07/04/19 03:21 Labs: Short CBC 07/04/19 Range/Units 03:21 WBC 6.6 (4.3-11.1) K/mcL Hgb 10.1 L (11.5-15.4) g/dL Hct 30.8 L (35.3-44.9) % Plt Count 105 L (140-400) K/mcL Neutrophils # 5.9 (1.6-8.9) K/mcL BMP 07/04/19 03:21 Sodium 129 L Potassium 4.8 Chloride 96 L Carbon Dioxide 21 L BUN 68 H Creatinine 4.51 H Glucose 148 H Calcium 8.4 L Cardiac Enzymes 07/03/19 07/04/19 Range/Units 21:28 03:21 Troponin I 0.06 H* 0.05 H* (< 0.04) ng/mL - ABG Interpretation ABG results: PT/INR, D-dimer PT 15.1 Seconds (9.4-12.1) H 07/03/19 13:10 - Impressions Impressions Abdomen/Pelvis CT 07/03/19 13:09 IMPRESSION: No acute process of the abdomen or pelvis. Stable bilateral ureteral stents in place. No evidence urinary tract obstruction. Chronic irregularity and sclerosis of the endplates at the L3-4 level without secondary findings to suggest an acute process. If there is further clinical concern MRI with gadolinium is recommended. Fat containing ventral hernias. D/ / 07/03/2019 14:47:49 Guevara Queen MD / shannon Interpreting Provider: Guevara Queen MD Consult Discharge Plan - Plan Referrals: Jozef Sahu MD [Primary Care Provider] - (1) UTI (urinary tract infection) Qualifiers: Urinary tract infection type: site unspecified Hematuria presence: without hematuria Qualified Code(s): N39.0 - Urinary tract infection, site not specified (2) Sepsis Qualifiers: Sepsis type: methicillin resistant Staphylococcus aureus Sepsis acute organ dysfunction status: without acute organ dysfunction Qualified Code(s): A41.02 - Sepsis due to Methicillin resistant Staphylococcus aureus (3) Chest pain Qualifiers: Chest pain type: other chest pain Qualified Code(s): R07.89 - Other chest pain; R07.8 - Other chest pain (5) Diabetes mellitus Qualifiers: Diabetes mellitus type: type 2 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 exterminator insulin use: unspecified halfway insulin use status Diabetes mellitus complication status: with other specified complication Qualified Code(s): E11.69 - Type 2 diabetes mellitus with other specified complication (6) Diastolic CHF Qualifiers: Heart failure chronicity: acute on chronic Qualified Code(s): I50.33 - Acute on chronic diastolic (congestive) heart failure (10) HLD (hyperlipidemia) Qualifiers: Hyperlipidemia type: unspecified Qualified Code(s): E78.5 - Hyperlipidemia, unspecified (11) CAD (coronary artery disease) Qualifiers: Coronary Disease-Associated Artery/Lesion type: bypass graft [place] vs. transplanted heart: [place] heart Associated angina: without angina Qualified Code(s): I25.810 - Atherosclerosis of coronary artery bypass graft(s) without angina pectoris (12) Depression Qualifiers: Depression Type: unspecified Qualified Code(s): F32.9 - Major depressive disorder, single episode, unspecified (13) Hydronephrosis Qualifiers: Hydronephrosis type: unspecified Qualified Code(s): N13.30 - Unspecified hydronephrosis (14) Hypertension Qualifiers: Hypertension type: essential hypertension Qualified Code(s): I10 - Essential (primary) hypertension (15) Hypothyroidism Qualifiers: Hypothyroidism type: acquired Qualified Code(s): E03.9 - Hypothyroidism, unspecified
[2019-07-04] MEDS: *HR* HYDROcodone/Acet 5/325 mg TABLET PO PRN (14:51)
[2019-07-04] MEDS ORDERED: Vancomycin 500 MG in 0.9 % Sodium Chloride Mini Bag 100 ML IVPB ONE (18:00)
[2019-07-04] MEDS ORDERED: Perflutren Lipid Microsphere 1.3 ML in 0.9 % Sodium Chloride 8.7 ML IVP ONE (18:38)
[2019-07-04] MEDS: traZODone 50 MG TABLET PO SCH (21:59)
[2019-07-04] MEDS: Mirtazapine 15 MG TABLET PO SCH (21:59)
[2019-07-04] MEDS: rOPINIRole 0.25 MG TABLET PO SCH (21:59)
[2019-07-05] MEDS: *HR* Heparin 5,000 UNIT/ML VIAL SQ SCH ×2 (05:14→16:21)
--- NOTE | 2019-07-05 08:19 | Nephrology Progress Note ---
Date of Encounter: 07/05/19 Time of Encounter: 08:17 - Assessment and Plan (1) ESRD (end stage renal disease) on dialysis Current Visit: Yes Status: Acute Current regimen is MWF at [facility]. Plan for HD tomorrow Needs renal diet and fluid restriction of 1.5 liters/day--ordered Avoid nephrotoxins and renal dose. Strict I/O (2) UTI (urinary tract infection) Current Visit: Yes Status: Acute Per ID and urology teams Qualifiers: Urinary tract infection type: site unspecified Hematuria presence: with hematuria Qualified Code(s): N39.0 - Urinary tract infection, site not specified; R31.9 - Hematuria, unspecified (3) Bacteremia Current Visit: Yes Status: Acute Appreciate ID recommendations. Subjective Principal diagnosis: ESRD on HD, UTI Interval history: Patient is seen and examined. Sleeping currently but wakes up easily. States she is feeling better than she did. Objective - Vital Signs Vital signs: Vital Signs Temp Pulse Resp BP Pulse Ox 07/05/19 07:11 98.1 F 77 18 136/72 100 07/05/19 04:15 97.7 F 69 14 136/71 100 07/05/19 00:30 98.1 F 66 12 109/66 99 07/04/19 20:47 98.4 F 71 16 113/64 99 07/04/19 16:43 103.0 F H 97 18 144/66 100 07/04/19 13:21 98.4 F 18 160/73 07/04/19 13:00 137/102 07/04/19 12:45 102/77 07/04/19 12:30 93/60 07/04/19 12:15 112/64 07/04/19 12:00 121/61 07/04/19 11:45 135/66 07/04/19 11:30 131/63 07/04/19 11:15 115/58 07/04/19 11:00 122/58 07/04/19 10:45 127/58 07/04/19 10:30 117/58 07/04/19 10:15 120/56 07/04/19 10:00 118/53 07/04/19 09:45 116/50 07/04/19 09:30 98.9 F 18 114/58 Intake and Output 09/02/1607/05/19 07/05/19 23:59 07:59 15:59 Intake Total 0 / 1340 Balance 0 / -2260 Intake: Oral 0 / 240 Other: Weight 82.5 kg Blood Glucose* 100 74 Patient Weight 07/05/19 23:59 Weight 82.5 kg - General Appearance General appearance: Present: chronically ill, frail EENT: Present: ATNC, mucous membranes moist, hearing intact, vision intact Neck: Present: supple Respiratory: Present: clear (decreased throughout) Cardiology: Present: edema (face is 'puffy'), normal S1, normal S2 Dialysis Vascular Access: Arteriovenous Graft Gastrointestinal: Present: no tenderness, no guarding Integumentary: Present: warm and dry Neurologic: Present: alert and oriented x3 Psychiatric: Present: mood/affect appropriate, cooperative - Lab 07/04/19 03:21 07/04/19 03:21 Consult Discharge Plan - Plan Referrals: Jozef Sahu MD [Primary Care Provider] -
[2019-07-05] MEDS: Renal Vitamin 1 CAP CAPSULE PO SCH (08:21)
[2019-07-05] MEDS: Folic Acid 1 MG TABLET PO SCH (08:21)
[2019-07-05] MEDS: Aspirin Enteric Coated 81 MG Tablet PO SCH (08:21)
[2019-07-05] MEDS: risperiDONE 0.25 MG TABLET PO SCH ×2 (08:21→20:13)
[2019-07-05] MEDS: Cholecalciferol (D-3) 1,000 UNIT (25MCG) TABLET PO SCH (08:22)
[2019-07-05] MEDS: cefTRIAXone 2,000 MG in 0.9 % Sodium Chloride Mini Bag 100 ML IVPB SCH (08:22)
[2019-07-05] MEDS: Insulin DETEMIR 100 UNIT/ML X5UNITS SQ SCH ×2 (08:22→20:13)
[2019-07-05] MEDS: Sucralfate 1 GM TABLET PO SCH ×2 (08:22→16:21)
[2019-07-05] MEDS: Insulin LISPRO 300 UNITS/3 ML VIAL SQ SCH ×3 (08:22→16:21)
[2019-07-05] MEDS: Lisinopril 20 MG TABLET PO SCH (08:29)
--- NOTE | 2019-07-05 08:53 | Urology Progress Note ---
<Cynthia Martinez Lokesh - Last Filed: 07/05/19 08:51> Date of Encounter: 07/05/19 Time of Encounter: 08:10 - Assessment and Plan (1) Incomplete bladder emptying Current Visit: Yes Status: Acute Assessment and plan: Patient is a 68-year-old female who presents with incomplete bladder emptying. Orders for intermittent catheterization 3 times daily have been communicated with patient's nurse. If nursing staff encounters any additional concerns, urology is always available as needed. (2) Sepsis Current Visit: Yes Status: Acute Assessment and plan: Patient is a 68-year-old female who presents with MRSA sepsis. This is unlikely a urinary source and could possibly be from AV fistula. CT was reassuring for proper stent placement and resolution of hydronephrosis. Appreciate infectious disease support. Urology will follow with Ms. Dan as an outpatient to plan future stent exchange. Qualifiers: Sepsis type: methicillin resistant Staphylococcus aureus Sepsis acute organ dysfunction status: without acute organ dysfunction Qualified Code(s): A41.02 - Sepsis due to Methicillin resistant Staphylococcus aureus Progress Note Subjective: no new complaints, feels better Narrative: Patient seen and examined lying in bed in no apparent distress. Nursing staff a nd TELEPHONE SALES AGENT at bedside caring for patient. Patient reports she is feeling much improved, and she appears to be more lucid today. Patient reports extended care facility has not been performing intermittent straight catheterization as instructed. Objective Initial Vital Signs Temp Pulse Resp BP Pulse Ox 103.2 F H 100 28 155/63 96 07/03/19 12:38 07/03/19 12:38 07/03/19 12:38 07/03/19 12:38 07/03/19 12:38 - General physical appearance Present: no distress, no pain - Respiratory Present: normal expansion, normal respiratory effort - Abdomen Present: soft, non tender. Absent: distended - Genitourinary Present: other (No CVAT) - Integumentary Present: no rash, no abnormal pigmentation - Musculoskeletal Present: normal posture - Psychiatric Present: oriented to time, oriented to person, oriented to place, speech is normal, memory intact - Labs 07/04/19 03:21 07/04/19 03:21 Consult Discharge Plan - Plan Referrals: Jozef Sahu MD [Primary Care Provider] - <Eliud Welch - Last Filed: 07/05/19 18:06> Date of Encounter: 07/05/19 - Assessment and Plan (1) Sepsis Current Visit: Yes Status: Acute Assessment and plan: Patient was discharged prior to my evaluation today. Agree with physician liu dillard assessment and plan Qualifiers: Sepsis type: sepsis due to unspecified organism Sepsis acute organ dysfunction status: without acute organ dysfunction Qualified Code(s): A41.9 - Sepsis, unspecified organism Objective Initial Vital Signs Temp Pulse Resp BP Pulse Ox 103.2 F H 100 28 155/63 96 07/03/19 12:38 07/03/19 12:38 07/03/19 12:38 07/03/19 12:38 07/03/19 12:38 - Labs 07/04/19 03:21 07/04/19 03:21
[2019-07-05] MEDS ORDERED: Metoprolol XL (24 HR) Succ 25 MG TAB.ER.24H PO SCH (09:00)
--- NOTE | 2019-07-05 09:32 | Infectious Disease Progress No ---
ID Progress Note Date of Encounter: 07/05/19 Time of Encounter: 08:50 - Subjective Subjective: Patient seen and examined. No acute events noted overnight. Patient states she feels better. Denies fevers, chills, or rigors. Denies chest pain or cough. Reports shortness of breath if she takes off her O2. Denies nausea, vomiting, or diarrhea. Reports her last BM was yesterday. States she was straight-cathed this morning. Denies dysuria or frequency. Denies abdominal pain. Denies oral thrush or skin rashes. States her appetite is good. Complains of lower back pain this morning that is chronic and typically waxes and wanes and appears to be at baseline at this time. - Objective CBC & Chem 7: 07/04/19 03:21 07/04/19 03:21 - Exam Vitals: Temp Pulse Resp BP Pulse Ox 98.1 F 77 18 136/72 100 07/05/19 07:11 07/05/19 07:11 07/05/19 07:11 07/05/19 07:11 07/05/19 07:11 Exam: Head: Atraumatic, normal inspection, normocephalic. Eye: EOMI, PERRLA, no scleral icterus noted. No subconjunctival hemorrhage noted. ENT: Mucous membranes moist. No odontogenic infection noted. Neck: Normal inspection, no meningismus. Respiratory: Clear to auscultation. No rales, respiratory distress, rhonchi, or wheezes noted. Cardiovascular: Regular rate and rhythm, S1 and S2 audible. No murmurs, rubs, or gallops. GI: Soft, obese, normal bowel sounds. Tenderness noted to the LLQ and suprapubic region. Extremities:No joint swelling, pedal edema, or tenderness noted. AV fistula noted to the RUE, +/+. Right foot cool to touch, DP/PT 1+. Left foot warm DP 2+/ PT 1+. Back: No CVA tenderness noted. Neurological: Alert, oriented 3, no focal deficits. Psychiatric: normal affect, normal mood. Skin: Dry, intact, warm. Normal color. No rashes. No endocarditis stigmata noted. - Assessment and Plan (1) Sepsis Current Visit: Yes Status: Acute The patient had 4 sepsis criteria on admission. Likely secondary to bacteremia and UTI. Improved. Fever curve improved. Bandemia resolved. Tachycardia and tachypnea resolved. Blood cultures drawn 07/03/19 are +2 out of 2 sets for MRSA. Repeat blood cultures from 07/04/19 are pending 2 sets. Qualifiers: Sepsis type: methicillin resistant Staphylococcus aureus Sepsis acute organ dysfunction status: without acute organ dysfunction Qualified Code(s): A41.02 - Sepsis due to Methicillin resistant Staphylococcus aureus SNOMED Code(s): 62121402 (2) Bacteremia Current Visit: Yes Status: Acute Causative organism: MRSA. Source: Unclear. Patient does not appear to have any open wounds. She does have an AV fistula to the right upper extremity but it does not appear acutely infected. Blood cultures drawn 07/03/19 are +2 out of 2 sets for MRSA. Repeat blood cultures from 07/04/19 are pending 2 sets. Complicated due to lack of source. Rheumatoid factor 15. No endocarditis stigmata noted on exam. The patient has one major and two minor modified [place] criteria. Currently on IV Vancomycin. SNOMED Code(s): 2562918 (3) UTI (urinary tract infection) Current Visit: Yes Status: Ruled-out Urine culture negative. Urinalysis positive for pyuria, but also appears contaminated. Additionally, the patient is end-stage renal disease and although she does make some urine she does not make much. Her urine will likely always appear pyuric. She was symptomatic, but CT abdomen and pelvis negative for findings indicative of cystitis or pyelonephritis. Urology consulted. Currently on Rocephin and Vancomycin. Qualifiers: Urinary tract infection type: site unspecified Hematuria presence: with hematuria Qualified Code(s): N39.0 - Urinary tract infection, site not specified; R31.9 - Hematuria, unspecified SNOMED Code(s): 44124063 (4) Nausea & vomiting Current Visit: No Status: Resolved Etiology unclear. CT abdomen and pelvis negative. Appears improved. Qualifiers: Vomiting type: unspecified Vomiting Intractability: non-intractable Qualified Code(s): R11.2 - Nausea with vomiting, unspecified SNOMED Code(s): 25531103 (5) Chest pain Current Visit: Yes Status: Resolved Left sided chest pain that is reproducible. --> resolved. CXR negative for infection. Troponing mildly elevated at 0.04/0.06/0.05. Further workup and mangement per the primary team. Qualifiers: Chest pain type: other chest pain Qualified Code(s): R07.89 - Other chest pain; R07.8 - Other chest pain SNOMED Code(s): 29653078 (6) GERD (gastroesophageal reflux disease) Current Visit: No Status: Chronic Qualifiers: Esophagitis presence: esophagitis presence not specified Qualified Code(s): K21.9 - Gastro-esophageal reflux disease without esophagitis SNOMED Code(s): 593106615 (7) CAD (coronary artery disease) of artery bypass graft Current Visit: No Status: Chronic Qualifiers: [place] vs. 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 Repeat CT scan December 2018 showed no active disease. Qualifiers: Laterality: right Lung location: unspecified part of lung Qualified Code(s): C34.91 - Malignant neoplasm of unspecified part of right bronchus or lung SNOMED Code(s): 402975922 (9) HLD (hyperlipidemia) Current Visit: No Status: Chronic Qualifiers: Hyperlipidemia type: unspecified Qualified Code(s): E78.5 - Hyperlipidemia, unspecified SNOMED Code(s): 95719616 (10) Anxiety and depression Current Visit: No Status: Acute SNOMED Code(s): 664850220 (11) ESRD (end stage renal disease) Current Visit: Yes Status: Chronic HD M/W/F. Nephrology consulted and following. SNOMED Code(s): 29038714 (12) Peripheral arterial disease Current Visit: No Status: Chronic YULI showed normal right and moderate disease on the left. SNOMED Code(s): 627663113, 301652132 (13) Diabetes mellitus Current Visit: No Status: Chronic Recommend aggressive glucose monitoring and control. Management per the primary team. 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 insulin use: with termite renewal inspector use Diabetes mellitus complication status: with kidney complications Diabetes mellitus complication detail: with chronic kidney disease Chronic kidney disease stage: on chronic dialysis Qualified Code(s): E11.22 - Type 2 diabetes mellitus with diabetic chronic kidney disease; N18.6 - End stage renal disease; Z79.4 - MCC (current) use of insulin; Z99.2 - Dependence on renal dialysis SNOMED Code(s): 90886366 (14) Drug allergy, antibiotic Current Visit: Yes Status: Acute Sulfa - Hives SNOMED Code(s): 995237378478455 - Recommendations Recommendations: Await repeat blood cultures. Get TTE. May need NATE prior to discharge. Continue Vancomycin IV. Pharmacy to dose. Goal trough ~15. Discontinue Rocephin. Duration of treatment depends on the clinical picture. Monitor labs for vanc toxicity and dose-adjust antibiotics. Contact precautions per hospital policy. Consult Discharge Plan - Plan Referrals: Jozef Sahu MD [Primary Care Provider] -
[2019-07-05] MEDS ORDERED: Vancomycin 1 EACH in 0.9 % Sodium Chloride 250 ML IVPB PRN (10:15)
[2019-07-05] MEDS: *HR* HYDROcodone/Acet 5/325 mg TABLET PO PRN (10:55)
--- NOTE | 2019-07-05 11:29 | Electrocardiograph Report ---
[facility] Test Date: 2019-07-03 Pat Name: Alaina Dan Department: EXAM27 Room: 2A22 Gender: F [place] Clerk: : [id number] Requested By: Patricia Gilbert Order Number: [id number] Reading MD: Juan Mancilla Measurements Intervals [place] Rate: 99 P: 69 [place]: 157 QRS: 53 QRSD: 110 T: 114 QT: 347 QTc: 446 Interpretive Statements Sinus rhythm Probable LVH with secondary repol abnrm Electronically Signed On 07-05-2019 11:28:14 EDT by Juan Mancilla
--- NOTE | 2019-07-05 14:19 | Internal Med Progress Note ---
Hospitalist Progress Note - Encounter Date of Encounter: 07/05/19 Time of Encounter: 14:16 - Subjective Interval History: I have seen and evaluated the patient at bedside. Patient reported feeling better today. denies chest pain, nausea, vomiting or abdominal pain. denies shortness of breath. - Exam Vitals: Temp Pulse Resp BP Pulse Ox 97.9 F 74 18 123/69 99 07/05/19 11:22 07/05/19 11:22 07/05/19 11:22 07/05/19 11:22 07/05/19 11:22 Exam: Vitals: Reviewed General: Alert and oriented x3. In no acute distress. Cardiovascular: RRR, normal S1 & S2, no rubs, murmurs or gallops. Lungs: CTA b/l, no wheezes or crackles. Abdomen: Obese, soft, non-tender, no rigidity. NABS in all 4 quadrants. Extremities: No edema Neurological: No focal neurological abnormalities. Rest of the physical exam is non contributory - Assessment and Plan (1) UTI (urinary tract infection) Current Visit: Yes Status: Suspected (2) Sepsis Current Visit: Yes Status: Resolved (3) Chest pain Current Visit: Yes Status: Resolved (4) ESRD (end stage renal disease) Current Visit: Yes Status: Chronic (5) Diabetes mellitus Current Visit: Yes Status: Chronic (6) Diastolic CHF Current Visit: Yes Status: Chronic (7) DVT prophylaxis Current Visit: Yes Status: Acute (8) Bacteremia Current Visit: Yes Status: Acute (9) Elevated troponin Current Visit: Yes Status: Acute (10) HLD (hyperlipidemia) Current Visit: No Status: Chronic (11) CAD (coronary artery disease) Current Visit: No Status: Chronic (12) Depression Current Visit: No Status: Chronic (13) Hydronephrosis Current Visit: No Status: Chronic (14) Hypertension Current Visit: No Status: Chronic (15) Hypothyroidism Current Visit: No Status: Chronic - Summary of Assessment and Plan Summary of Assessment and Plan: 68 year old female with pmh of diabetes, hypertension, bilateral ureteral stent placement for hydronephrosis presenting with complaints of nausea and vomiting of 1 day duration. Patient admitted to the hospital due to sepsis. Assessment: 1. Sepsis 2. Bacteremia 3. UTI 4. Hyponatremia 5. DM 6. ESRD 7. B/L hydronephrosis 8. HTN 9. HLD 10. Elevated trops. 11. Depression 12. CAD 13. HFpEF 14. VTE prophylaxis Plan Blood culture: growing gram positive cocci. MRSA on PCR Repeat blood culture: no growth to date urine culture: No growth - continue vancomycin per pharmacy protocol. on ceftriaxone 2gm/IV daily - NATE ordered - NPO at midnight - ID recommendations appreciated. - patient with [place] trops in the setting of sepsis on presentation. chest pain free - c/w clopidogrel 75 mg by mouth daily. - on metoprolol 25mg/PO BID - renal replacement therapy per nephrology recommendations. - avoid nephrotoxic medications - blood sugar well controlled. continue current insulin coverage. - On levothyroxine 50 mcg/PO daily - Patient is an sucralfate, omeprazole. - c/w Heparin subq Disposition: patient to remain in the hospital due to sepsis, bacteremia on broad spectrum IV antibiotics. scheduled for NATE. - Time Spent with Patient Total time spent is greater than 50% in coordination of care (as documented) at patient's floor/unit and/or counseling patient: Greater than 35 minutes (45) Plan of Care Discussed with: patient (and the nurse.) Internal Medicine: Result - Labs CBC & Chem 7: 07/04/19 03:21 07/04/19 03:21 - ABG Interpretation ABG results: PT/INR, D-dimer PT 15.1 Seconds (9.4-12.1) H 07/03/19 13:10 - Impressions Impressions Echocardiogram 07/04/19 16:56 Impressions: LVEF 55-60%. Normal LV chamber size, wall thickness and overall function. Mild segmental left ventricular systolic dysfunction. Atypical septal motion consistent with post-operative status. Normal right ventricular structure and function. Mild tricuspid regurgitation. Moderate pulmonary hypertension. Estimated RVSP is 49 mmHg. Left Ventricular Wall Motion: Rest Echo Findings The basal inferior and basal inferior septal st[place] were hypokinetic. All other wall segments showed normal motion. Findings: Study Quality * Technically adequate exam. ECG Findings * Normal sinus rhythm. Left Ventricle * LVEF 55-60%. * Normal LV chamber size, wall thickness and overall function. * Mild segmental left ventricular systolic dysfunction. * Atypical septal motion consistent with post-operative status. Right Ventricle * Normal right ventricular structure and function. Left Atrium * Mildly dilated left atrium. Right Atrium * Normal right atrial size. Interatrial Septum * Interatrial septum not well evaluated. Aortic Valve * Trileaflet aortic valve with normal function. * No aortic stenosis. * Trace aortic regurgitation. Mitral Valve * Mild mitral annular calcification * Trace mitral regurgitation. * No mitral stenosis. Tricuspid Valve * Normal tricuspid valve structure. * Mild tricuspid regurgitation. * Moderate pulmonary hypertension. * Estimated RVSP is 49 mmHg. * Estimated RA pressure is 5 mmHg. Pulmonic Valve * Normal pulmonic valve structure and function. * Trace pulmonic regurgitation. Aorta * Normally sized aortic root. Pericardium * The pericardium appears normal. IVC * Normal IVC dimensions and inspiratory collapse. Pulmonary Artery * Normal visualized portions of the main pulmonary artery. Consult Discharge Plan - Plan Referrals: Jozef Sahu MD [Primary Care Provider] - (1) UTI (urinary tract infection) Qualifiers: Urinary tract infection type: site unspecified Hematuria presence: with hematuria Qualified Code(s): N39.0 - Urinary tract infection, site not specified; R31.9 - Hematuria, unspecified (2) Sepsis Qualifiers: Sepsis type: methicillin resistant Staphylococcus aureus Sepsis acute organ dysfunction status: without acute organ dysfunction Qualified Code(s): A41.02 - Sepsis due to Methicillin resistant Staphylococcus aureus (3) Chest pain Qualifiers: Chest pain type: other chest pain Qualified Code(s): R07.89 - Other chest pain; R07.8 - Other chest pain (5) Diabetes mellitus Qualifiers: Diabetes mellitus type: type 2 Diabetes mellitus correction insulin 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 transplanted heart: [place] heart Associated angina: without angina Qualified Code(s): I25.810 - Atherosclerosis of coronary artery bypass graft(s) without angina pectoris (12) Depression Qualifiers: Depression Type: unspecified Qualified Code(s): F32.9 - Major depressive disorder, single episode, unspecified (13) Hydronephrosis Qualifiers: Hydronephrosis type: unspecified Qualified Code(s): N13.30 - Unspecified hydronephrosis (14) Hypertension Qualifiers: Hypertension type: essential hypertension Qualified Code(s): I10 - Essential (primary) hypertension (15) Hypothyroidism Qualifiers: Hypothyroidism type: acquired Qualified Code(s): E03.9 - Hypothyroidism, unspecified
[2019-07-05] MEDS ORDERED: cefTRIAXone 2,000 MG in Water for inj. (sterile) 20 ML IVP SCH (15:00)
[2019-07-05] MEDS: traZODone 50 MG TABLET PO SCH (20:12)
[2019-07-05] MEDS: Mirtazapine 15 MG TABLET PO SCH (20:13)
[2019-07-05] MEDS: rOPINIRole 0.25 MG TABLET PO SCH (20:13)
[2019-07-05] MEDS: Acetaminophen 325 MG TABLET PO PRN (22:43)
[2019-07-06 05:48] LABS: Basophils % 0.2 %; Eosinophils # 0.2 K/mcL (0.0-0.6); Eosinophils % 2.8 %; Hematocrit 30.1 % (35.3-44.9); Hemoglobin 9.7 g/dL (11.5-15.4); Immature Granulocytes % 0.2 % (0-4); Lymphocytes # 0.8 K/mcL (0.6-4.6); Lymphocytes % 14.4 %; Mean Corpuscular HGB Conc 32.2 g/dL (31.6-35.5); Mean Corpuscular Hemoglobin 32.8 pg (28.0-33.3); Mean Corpuscular Volume 101.7 fL (83.0-100.0); Monocytes # 0.7 K/mcL (0.0-1.3); Monocytes % 13.7 %; Neutrophils # 3.7 K/mcL (1.6-8.9); Platelet Count 112 K/mcL (140-400); Red Blood Count 2.96 M/mcL (3.82-4.97); Red Cell Distribution Width 13.4 % (11.5-14.5); Segmented Neutrophils % 68.7 %; White Blood Count 5.4 K/mcL (4.3-11.1)
[2019-07-06] MEDS: *HR* Heparin 5,000 UNIT/ML VIAL SQ SCH (05:55)
[2019-07-06 06:11] LABS: Calcium 8.1 mg/dL (8.6-10.3); Magnesium 1.9 mg/dL (1.6-2.6); Phosphorous 6.1 mg/dL (2.7-4.5); Potassium 4.1 mEq/L (3.5-5.1)
[2019-07-06] MEDS: Sucralfate 1 GM TABLET PO SCH ×2 (07:46→16:55)
[2019-07-06] MEDS: Insulin LISPRO 300 UNITS/3 ML VIAL SQ SCH ×3 (07:46→16:56)
[2019-07-06] MEDS ORDERED: 0.9 % Sodium Chloride 250 ML IVC PRN (08:24)
[2019-07-06] MEDS ORDERED: cefTRIAXone 2,000 MG in 0.9 % Sodium Chloride Mini Bag 100 ML IVPB SCH (09:00)
--- NOTE | 2019-07-06 09:44 | Infectious Disease Progress No ---
ID Progress Note Date of Encounter: 07/06/19 Time of Encounter: 09:10 - Subjective Subjective: Patient seen and examined. No acute events noted overnight. Patient states she feels better overall but is nauseated this morning. Denies fevers, chills, or rigors. Denies chest pain. Reports shortness of breath if she takes off her O2 and a dry cough overnight. Denies nausea, vomiting, or diarrhea. Reports her last BM was two days ago. Denies dysuria or frequency. Denies abdominal pain. Denies oral thrush or skin rashes. NPO for NATE later today. Complains of lower back pain this morning that is chronic and typically waxes and wanes and appears to be at baseline at this time. - Objective CBC & Chem 7: 07/06/19 04:48 07/06/19 04:48 - Exam Vitals: Temp Pulse Resp BP Pulse Ox 98.5 F 77 19 131/68 99 07/06/19 06:57 07/06/19 06:57 07/06/19 06:57 07/06/19 06:57 07/06/19 03:51 Exam: Head: Atraumatic, normal inspection, normocephalic. Eye: EOMI, PERRLA, no scleral icterus noted. No subconjunctival hemorrhage noted. ENT: Mucous membranes moist. No odontogenic infection noted. Neck: Normal inspection, no meningismus. Respiratory: Clear to auscultation. No rales, respiratory distress, rhonchi, or wheezes noted. Cardiovascular: Regular rate and rhythm, S1 and S2 audible. No murmurs, rubs, or gallops. GI: Soft, obese, normal bowel sounds. Tenderness noted to the LLQ and suprapubic region. Extremities:No joint swelling, pedal edema, or tenderness noted. AV fistula noted to the RUE, +/+. Right foot cool to touch, DP/PT 1+. Left foot warm DP 2+/ PT 1+. Back: No CVA tenderness noted. Neurological: Alert, oriented 3, no focal deficits. Psychiatric: normal affect, normal mood. Skin: Dry, intact, warm. Normal color. No rashes. No endocarditis stigmata noted. - Assessment and Plan (1) Sepsis Status: Resolved The patient had 4 sepsis criteria on admission. Likely secondary to bacteremia and UTI. Improved. Fever curve improved. Bandemia resolved. Tachycardia and tachypnea resolved. Blood cultures drawn 07/03/19 are +2 out of 2 sets for MRSA. Repeat blood cultures from 07/04/19 are NGTD 2 sets. Qualifiers: Sepsis type: methicillin resistant Staphylococcus aureus Sepsis acute organ dysfunction status: without acute organ dysfunction Qualified Code(s): A41.02 - Sepsis due to Methicillin resistant Staphylococcus aureus SNOMED Code(s): 56706758 (2) Bacteremia Status: Acute Causative organism: MRSA. Source: Unclear. Patient does not appear to have any open wounds. She does have an AV fistula to the right upper extremity but it does not appear acutely infected. Blood cultures drawn 07/03/19 are +2 out of 2 sets for MRSA. Repeat blood cultures from 07/04/19 are NGTD 2 sets. Complicated due to lack of source. Rheumatoid factor 15. No endocarditis stigmata noted on exam. TTE negative for valvular vegetations. NATE pending completion later today. The patient has one major and two minor modified Ector criteria. Currently on IV Vancomycin. SNOMED Code(s): 5166348 (3) UTI (urinary tract infection) Status: Ruled-out Urine culture negative. Urinalysis positive for pyuria, but also appears contaminated. Additionally, the patient is end-stage renal disease and although she does make some urine she does not make much. Her urine will likely always appear pyuric. She was symptomatic, but CT abdomen and pelvis negative for findings indicative of cystitis or pyelonephritis. Urology consulted and signed off. Qualifiers: Urinary tract infection type: site unspecified Hematuria presence: with hematuria Qualified Code(s): N39.0 - Urinary tract infection, site not specified; R31.9 - Hematuria, unspecified SNOMED Code(s): 22584897 (4) Nausea & vomiting Status: Resolved Etiology unclear. CT abdomen and pelvis negative. Appears improved. Qualifiers: Vomiting type: unspecified Vomiting Intractability: non-intractable Qualified Code(s): R11.2 - Nausea with vomiting, unspecified SNOMED Code(s): 17745501 (5) Chest pain Status: Resolved Left sided chest pain that is reproducible. --> resolved. CXR negative for infection. Troponing mildly elevated at 0.04/0.06/0.05. Further workup and mangement per the primary team. Qualifiers: Chest pain type: other chest pain Qualified Code(s): R07.89 - Other chest pain; R07.8 - Other chest pain SNOMED Code(s): 38831978 (6) GERD (gastroesophageal reflux disease) Status: Chronic Qualifiers: Esophagitis presence: esophagitis presence not specified Qualified Code(s): K21.9 - Gastro-esophageal reflux disease without esophagitis SNOMED Code(s): 611333295 (7) CAD (coronary artery disease) of artery bypass graft Status: Chronic Qualifiers: [place] vs. 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 Repeat CT scan December 2018 showed no active disease. Qualifiers: Laterality: right Lung location: unspecified part of lung Qualified Code(s): C34.91 - Malignant neoplasm of unspecified part of right bronchus or lung SNOMED Code(s): 700008489 (9) HLD (hyperlipidemia) Status: Chronic Qualifiers: Hyperlipidemia type: unspecified Qualified Code(s): E78.5 - Hyperlipidemia, unspecified SNOMED Code(s): 11441975 (10) Anxiety and depression Status: Acute SNOMED Code(s): 296610251 (11) ESRD (end stage renal disease) Status: Chronic HD M/W/F. Nephrology consulted and following. SNOMED Code(s): 23570737 (12) Peripheral arterial disease Status: Chronic YULI showed normal right and moderate disease on the left. Consider vascular to evaluate. SNOMED Code(s): 715729900, 210209450 (13) Diabetes mellitus Status: Chronic Recommend aggressive glucose monitoring and control. Management per the primary team. 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 Get NATE prior to discharge. Continue Vancomycin IV. Pharmacy to dose. Goal trough ~15. Duration of treatment depends on the clinical picture depending on NATE. If negative, will need 14 days from first set of negative blood cultures (through 07/17). If NATE positive, will need six weeks (through 08/14). Will discuss with nephrology and see if we can administer her IV Vanc with HD to avoid insertion of long-term IV access (tunneled PICC). Monitor labs for vanc toxicity and dose-adjust antibiotics. Contact precautions per hospital policy. Consult Discharge Plan - Plan Instructions: Sepsis (DC) Referrals: Jozef Sahu MD [Primary Care Provider] - Prescriptions: HYDROcodone/Acet 5/325 mg [Laura 5-325 mg] 1 tab PO Q6HR PRN 7 Days #15 tablet PRN Reason: Severe Pain - Attending Attestation I have personally performed a face to face evaluation on this patient. I have reviewed and agree with the care plan. History and Exam by me shows: Assessment and plan: Sepsis Bacteremia with MRSA 2/2 sets positive 07/03/2019 UTI causative organism not clear Nausea and vomiting resolved ESRD on hemodialysis REcommendations: Continue vancomycin with goal vancomycin trough around 15 NATE with no signs of endocarditis Continue vancomycin through 07/17/2019. Monitor labs and for drug toxicity
[2019-07-06] MEDS: Aspirin Enteric Coated 81 MG Tablet PO SCH (10:33)
--- NOTE | 2019-07-06 11:43 | Discharge Summary ---
Orders not resulted at time of discharge: Pending orders 07/04/19 08:04 Culture,Blood [BC] Stat Date of Encounter: 07/06/19 Time of Encounter: 11:38 - Discharge Diagnosis (1) UTI (urinary tract infection) Priority: Primary Status: Ruled-out Qualifiers: Urinary tract infection type: site unspecified Hematuria presence: with hematuria Qualified Code(s): N39.0 - Urinary tract infection, site not specified; R31.9 - Hematuria, unspecified (2) Sepsis Priority: Primary Status: Resolved Qualifiers: Sepsis type: methicillin resistant Staphylococcus aureus Sepsis acute organ dysfunction status: without acute organ dysfunction Qualified Code(s): A41.02 - Sepsis due to Methicillin resistant Staphylococcus aureus (3) Chest pain Priority: Secondary Status: Resolved Qualifiers: Chest pain type: other chest pain Qualified Code(s): R07.89 - Other chest pain; R07.8 - Other chest pain (4) ESRD (end stage renal disease) Priority: Secondary Status: Chronic (5) Diabetes mellitus Priority: Secondary Status: Chronic Qualifiers: Diabetes mellitus type: type 2 Diabetes mellitus half-way insulin use: 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 Diabetes mellitus complication status: with other specified complication Qualified Code(s): E11.69 - Type 2 diabetes mellitus with other specified complication (6) Diastolic CHF Priority: Secondary Status: Chronic Qualifiers: Heart failure chronicity: acute on chronic Qualified Code(s): I50.33 - Acute on chronic diastolic (congestive) heart failure (7) DVT prophylaxis Priority: Secondary Status: Acute (8) Bacteremia Priority: Primary Status: Acute (9) Elevated troponin Priority: Secondary Status: Ruled-out (10) HLD (hyperlipidemia) Priority: Secondary Status: Chronic Qualifiers: Hyperlipidemia type: unspecified Qualified Code(s): E78.5 - Hyperlipidemia, unspecified (11) CAD (coronary artery disease) Priority: Secondary Status: Chronic Qualifiers: Coronary Disease-Associated Artery/Lesion type: bypass graft [place] vs. transplanted heart: [place] heart Associated angina: without angina Qualified Code(s): I25.810 - Atherosclerosis of coronary artery bypass graft(s) without angina pectoris (12) Depression Priority: Secondary Status: Chronic Qualifiers: Depression Type: unspecified Qualified Code(s): F32.9 - Major depressive disorder, single episode, unspecified (13) Hydronephrosis Priority: Secondary Status: Chronic Qualifiers: Hydronephrosis type: unspecified Qualified Code(s): N13.30 - Unspecified hydronephrosis (14) Hypertension Priority: Secondary Status: Chronic Qualifiers: Hypertension type: essential hypertension Qualified Code(s): I10 - Essential (primary) hypertension (15) Hypothyroidism Priority: Secondary Status: Chronic Qualifiers: Hypothyroidism type: acquired Qualified Code(s): E03.9 - Hypothyroidism, unspecified Hospital course: Ms. Dan is a 68 year old female pmh of diabetes, hypertension, bilateral ureteral stent placement for hydronephrosis presenting with complaints of nausea and vomiting of 1 day duration, also complains of suprapubic abdominal. In the ED patient was found to be febrile with a temp 103.0 and UA concerning for possible UTI. Patient was admitted to the hospital due to sepsis. Due to patient Hx of MRDO in the urine patient was started on Ertapenem. garcia culture. Blood culture: grew MRSA 2 bottle first set. Repeat blood culture: no growth >48 hours. TTE done: no vegetation. NATE done? CT/CT abd pelvis wo no iv no oral IMPRESSION: No acute process of the abdomen or pelvis. Stable bilateral ureteral stents in place. No evidence urinary tract obstruction. Chronic irregularity and sclerosis of the endplates at the L3-4 level without secondary findings to suggest an acute process. Due to patient Hx of hydronephrosis with b/l stent placement. urology was consulted and recommended against any intervention. ID consulted for antibiotics management. Recommended NATE: no evidence of endocarditis. DC on vancomycin to complete 14 days from first set of negative blood cultures (through 07/17). Patient will have antibiotics with HD. YULI done: Right YULI: Within normal limits. Left YULI: Moderate disease. Recommended to follow up with Vascular surgery as outpatient. patient already on plavix. Patient is clinically stable to be discharged on IV antibiotics. - Time Spent with Patient Total time spent providing and/or coordinating discharge services: Time spent: Greater than 30 minutes (40) - Discharge Medications Prescriptions: New HYDROcodone/Acet 5/325 mg [Clawson 5-325 mg] 1 tab PO Q6HR PRN 7 Days #15 tablet PRN Reason: Severe Pain Mirtazapine [Remeron] 7.5 mg PO HS tablet Continued Levothyroxine [Synthroid] 50 mcg PO QAM Folic Acid 1 mg PO QAM Atorvastatin [Lipitor] 40 mg PO HS Sucralfate [Carafate] 1 gm PO BID Clopidogrel [Plavix] 75 mg PO QPM Furosemide [Lasix] 20 mg PO QAM Amitriptyline [Elavil] 25 mg PO HS Ergocalciferol (VITAMIN D2) [Drisdol] 50,000 unit PO MO Insulin DETEMIR [Levemir] 12 unit SQ QAM Tamsulosin [Flomax] 0.4 mg PO QPM Lisinopril [Zestril] 20 mg PO SUTUTHSA Insulin DETEMIR [Levemir Flextouch] 14 unit SQ HS Aspirin Enteric Coated [Aspirin EC] 81 mg PO QAM Calcium Carbonate [Calcium] 500 mg PO BID Midodrine [ProAmatine] 5 mg PO MOWEFR Oxybutynin Chloride [Ditropan XL] 10 mg PO QAM Albuterol Sulfate [Proventil Inhaler] 2 puff IH Q4H PRN PRN Reason: Shortness Of Breath Ondansetron HCl [Zofran] 4 mg PO Q8H PRN PRN Reason: NAUSEA, VOMITING RisperiDONE [Risperdal] 0.5 mg PO BID Ropinirole HCl [Requip] 0.25 mg PO HS Guaifenesin [Mucinex] 600 mg PO Q12H Insulin Regular, Human [Novolin R] 5 unit IJ TIDWM Meclizine [Antivert] 12.5 mg PO TID Acetaminophen [Tylenol 8 Hour] 650 mg PO QID PRN PRN Reason: Pain Guaifenesin/Codeine Phosphate [Guaifen-Codeine 100-10 mg/5 ml] 10 ml PO QID PRN PRN Reason: Cough Ipratropium/Albuterol Sulfate [Iprat-Albut 0.5-3(2.5) mg/3 ml] 3 ml IH QID PRN PRN Reason: Shortness Of Breath Cyclobenzaprine HCl 5 mg PO TID Diphenoxylate/Atropine [Lomotil 2.5 mg/0.025 mg] 1 tab PO QID PRN PRN Reason: Diarrhea Metoprolol Succinate [Toprol Xl] 25 mg PO SUTUTHSA Mirtazapine 7.5 mg PO HS Pantoprazole Sodium [Protonix] 40 mg PO BID Trazodone HCl 50 mg PO HS Home Medications: Folic Acid 1 mg PO QAM 07/10/15 [History] Levothyroxine [Synthroid] 50 mcg PO QAM 07/10/15 [History] Atorvastatin [Lipitor] 40 mg PO HS 03/17/17 [History] Clopidogrel [Plavix] 75 mg PO QPM 05/09/17 [History] Sucralfate [Carafate] 1 gm PO BID 05/09/17 [History] Furosemide [Lasix] 20 mg PO QAM 03/01/18 [History] Amitriptyline [Elavil] 25 mg PO HS 03/26/18 [History] Ergocalciferol (VITAMIN D2) [Drisdol] 50,000 unit PO MO 03/26/18 [History] Insulin DETEMIR [Levemir] 12 unit SQ QAM 03/26/18 [History] Tamsulosin [Flomax] 0.4 mg PO QPM 03/26/18 [History] [facility] 07/[facility] [History] Insulin DETEMIR [Levemir Flextouch] 14 unit SQ HS 08/06/18 [History] Aspirin Enteric Coated [Aspirin EC] 81 mg PO QAM 09/04/18 [History] Calcium Carbonate [Calcium] 500 mg PO BID 09/04/18 [History] Midodrine [ProAmatine] 5 mg PO MOWEFR 09/04/18 [History] Oxybutynin Chloride [Ditropan XL] 10 mg PO QAM 09/04/18 [History] Albuterol Sulfate [Proventil Inhaler] 2 puff IH Q4H PRN 12/13/18 [History] Ondansetron HCl [Zofran] 4 mg PO Q8H PRN 12/13/18 [History] RisperiDONE [Risperdal] 0.5 mg PO BID 12/13/18 [History] Ropinirole HCl [Requip] 0.25 mg PO HS 12/13/18 [History] Guaifenesin [Mucinex] 600 mg PO Q12H 01/29/19 [History] Insulin Regular, Human [Novolin R] 5 unit IJ TIDWM 01/29/19 [History] Meclizine [Antivert] 12.5 mg PO TID 01/29/19 [History] Acetaminophen [Tylenol 8 Hour] 650 mg PO QID PRN 05/17/19 [History] Guaifenesin/Codeine Phosphate [Guaifen-Codeine 100-10 mg/5 ml] 10 ml PO QID PRN 05/17/19 [History] Ipratropium/Albuterol Sulfate [Iprat-Albut 0.5-3(2.5) mg/3 ml] 3 ml IH QID PRN 05/17/19 [History] Cyclobenzaprine HCl 5 mg PO TID 07/03/19 [History] Diphenoxylate/Atropine [Lomotil 2.5 mg/0.025 mg] 1 tab PO QID PRN 07/03/19 [History] Metoprolol Succinate [Toprol Xl] 25 mg PO SUTUTHSA 07/03/19 [History] Mirtazapine 7.5 mg PO HS 07/03/19 [History] Pantoprazole Sodium [Protonix] 40 mg PO BID 07/03/19 [History] Trazodone HCl 50 mg PO HS 07/03/19 [History] HYDROcodone/Acet 5/325 mg [Cl[place]son 5-325 mg] 1 tab PO Q6HR PRN 7 Days #15 tablet 07/06/19 [Rx] Mirtazapine [Remeron] 7.5 mg PO HS tablet 07/06/19 [Rx] Allergies/Adverse Reactions: Allergy/AdvReac Type Severity Reaction Status Date / Time latex Allergy Rash Verified 07/03/19 22:23 Sulfa (Sulfonamide Allergy Rash Verified 07/03/19 22:23 Antibiotics) adhesive tape AdvReac "RIPPED Verified 07/03/19 22:23 SKIN OFF" Date of admission: 07/04/19 08:30 Primary care physician: Jozef Sahu MD Consults: 07/03/19 16:08 Consult to Infectious Diseases [CONS] Routine Consulting Provider: Infectious Disease Julianne Reason for Consult: UTI with hx of multidrug resistant organisms Call Completed: No 07/03/19 16:20 Consult to Nephrology [CONS] Routine Consulting Provider: [facility] [place]/FLORENTIN/KIERRA/PEACE Reason for Consult: esrd-dd Call Completed: No 07/03/19 16:32 Consult to Urology [CONS] Routine Consulting Provider: Urology Julianne Reason for Consult: UTI sepsis, recent bilateral stents, hx of MDRO Call Completed: No 07/03/19 17:14 Consult to Scalehouse Attendant [CONS] Routine Reason for SW Consult: from [facility] 07/04/19 08:15 Consult to Dialysis [CONS] ONCE 07/04/19 08:21 Consult to Nurse Navigator [CONS] Routine Comment: hd 07/06/19 08:30 Consult to Dialysis [CONS] ONCE - Constitutional Vitals: Temp Pulse Resp BP Pulse Ox 98.1 F 77 20 141/68 99 07/06/19 10:20 07/06/19 06:57 07/06/19 10:20 07/06/19 10:20 07/06/19 03:51 Exam: Vitals: Reviewed General: Alert and oriented x3. In no acute distress. Cardiovascular: RRR, normal S1 & S2, no rubs, murmurs or gallops. Lungs: CTA b/l, no wheezes or crackles. Abdomen: Obese, soft, non-tender, no rigidity. NABS in all 4 quadrants. Extremities: No edema Neurological: No focal neurological abnormalities. Rest of the physical exam is non contributory - Patient Status Disposition: Transfer SNF Condition: Fair Functional capacity at discharge: uses cane/walker Overall status at discharge: patient is progressing back to baseline - Discharge Instructions Instructions: Sepsis (DC) Follow Up With: Jozef Sahu MD [Primary Care Provider] - - Diet and Activity Activity: as per physical therapy, resume usual activities as tolerated Diet: diabetic diet
--- NOTE | 2019-07-06 11:57 | Physician Discharge Referral ---
ExtendedCare Referral Info Transfer To: PENDING SALE TO [facility] Institutional Level of Care: Skilled - Diagnosis (1) UTI (urinary tract infection) Priority: Primary Status: Ruled-out (2) Sepsis Priority: Primary Status: Resolved (3) Chest pain Priority: Secondary Status: Resolved (4) ESRD (end stage renal disease) Priority: Secondary Status: Chronic (5) Diabetes mellitus Priority: Secondary Status: Chronic (6) Diastolic CHF Priority: Secondary Status: Chronic (7) DVT prophylaxis Priority: Secondary Status: Acute (8) Bacteremia Priority: Primary Status: Acute (9) Elevated troponin Priority: Secondary Status: Ruled-out (10) HLD (hyperlipidemia) Priority: Secondary Status: Chronic (11) CAD (coronary artery disease) Priority: Secondary Status: Chronic (12) Depression Priority: Secondary Status: Chronic (13) Hydronephrosis Priority: Secondary Status: Chronic (14) Hypertension Priority: Secondary Status: Chronic (15) Hypothyroidism Priority: Secondary Status: Chronic Prognosis: Fair Aware of Diagnosis: Patient Aware of Prognosis: Patient - Transfer Medications Prescriptions: HYDROcodone/Acet 5/325 mg [[place] 5-325 mg] 1 tab PO Q6HR PRN 7 Days #15 tablet PRN Reason: Severe Pain Home Medications: Folic Acid 1 mg PO QAM 07/10/15 [History] Levothyroxine [Synthroid] 50 mcg PO QAM 07/10/15 [History] Atorvastatin [Lipitor] 40 mg PO HS 03/17/17 [History] Clopidogrel [Plavix] 75 mg PO QPM 05/09/17 [History] Sucralfate [Carafate] 1 gm PO BID 05/09/17 [History] Furosemide [Lasix] 20 mg PO QAM 03/01/18 [History] Amitriptyline [Elavil] 25 mg PO HS 03/26/18 [History] Ergocalciferol (VITAMIN D2) [Drisdol] 50,000 unit PO MO 03/26/18 [History] Insulin DETEMIR [Levemir] 12 unit SQ QAM 03/26/18 [History] Tamsulosin [Flomax] 0.4 mg PO QPM 03/26/18 [History] Lisinopril [Zestril] 20 mg PO SUTUTHSA 07/31/18 [History] Insulin DETEMIR [Levemir Flextouch] 14 unit SQ HS 08/06/18 [History] Aspirin Enteric Coated [Aspirin EC] 81 mg PO QAM 09/04/18 [History] Calcium Carbonate [Calcium] 500 mg PO BID 09/04/18 [History] Midodrine [ProAmatine] 5 mg PO MOWEFR 09/04/18 [History] Oxybutynin Chloride [Ditropan XL] 10 mg PO QAM 09/04/18 [History] Albuterol Sulfate [Proventil Inhaler] 2 puff IH Q4H PRN 12/13/18 [History] Ondansetron HCl [Zofran] 4 mg PO Q8H PRN 12/13/18 [History] RisperiDONE [Risperdal] 0.5 mg PO BID 12/13/18 [History] Ropinirole HCl [Requip] 0.25 mg PO HS 12/13/18 [History] Guaifenesin [Mucinex] 600 mg PO Q12H 01/29/19 [History] Insulin Regular, Human [Novolin R] 5 unit IJ TIDWM 01/29/19 [History] Meclizine [Antivert] 12.5 mg PO TID 01/29/19 [History] Acetaminophen [Tylenol 8 Hour] 650 mg PO QID PRN 05/17/19 [History] Guaifenesin/Codeine Phosphate [Guaifen-Codeine 100-10 mg/5 ml] 10 ml PO QID PRN 05/17/19 [History] Ipratropium/Albuterol Sulfate [Iprat-Albut 0.5-3(2.5) mg/3 ml] 3 ml IH QID PRN 05/17/19 [History] Cyclobenzaprine HCl 5 mg PO TID 07/03/19 [History] Diphenoxylate/Atropine [Lomotil 2.5 mg/0.025 mg] 1 tab PO QID PRN 07/03/19 [History] Metoprolol Succinate [Toprol Xl] 25 mg PO SUTUTHSA 07/03/19 [History] Mirtazapine 7.5 mg PO HS 07/03/19 [History] Pantoprazole Sodium [Protonix] 40 mg PO BID 07/03/19 [History] Trazodone HCl 50 mg PO HS 07/03/19 [History] HYDROcodone/Acet 5/325 mg [Java 5-325 mg] 1 tab PO Q6HR PRN 7 Days #15 tablet 07/06/19 [Rx] Mirtazapine [Remeron] 7.5 mg PO HS tablet 07/06/19 [Rx] Allergies/Adverse Reactions: Allergy/AdvReac Type Severity Reaction Status Date / Time latex Allergy Rash Verified 07/03/19 22:23 Sulfa (Sulfonamide Allergy Rash Verified 07/03/19 22:23 Antibiotics) adhesive tape AdvReac "RIPPED Verified 07/03/19 22:23 SKIN OFF" - Respiratory Orders Oxygen / L per min (2-3 litter) Smoking Cessation: Smoking cessation has been advised. For more information, call the [place] Tobacco Quit Line at 1-583-QZXS-NOW. - Advance Directives Code Status: Full Code - Mobility Orders Ambulate - Rehabiliation Orders Rehab Potential: Fair Rehab Orders: Evaluation for Physical Therapy, Evaluation for Occupational Therapy - Diet Orders Renal CERTIFICATION: I certify that the transfer of the above named patient to an Extended Care Facility is necessary for the continuing treatment of the diagnosis listed. The above information is true and accurate reflection of patient's current condition. Confidential - Redisclosure prohibited without a patient's written consent.
[2019-07-06] MEDS: Renal Vitamin 1 CAP CAPSULE PO SCH (12:41)
[2019-07-06] MEDS: risperiDONE 0.25 MG TABLET PO SCH (12:41)
[2019-07-06] MEDS: Insulin DETEMIR 100 UNIT/ML X5UNITS SQ SCH (12:41)
[2019-07-06] MEDS: Cholecalciferol (D-3) 1,000 UNIT (25MCG) TABLET PO SCH (12:41)
--- NOTE | 2019-07-06 12:50 | Nephrology Progress Note ---
Date of Encounter: 07/06/19 Time of Encounter: 10:50 - Assessment and Plan (1) ESRD (end stage renal disease) on dialysis Current Visit: Yes Status: Chronic End-stage renal disease on thrice weekly hemodialysis: I reviewed the patient's labs, vital signs, progress notes, imaging and medication lists, which required complex evaluation and management and medical decision making to compose the patient's dialysis orders. For patients with end-stage renal disease, as always, I recommend following strict I's and O's, daily weights, renal diet, avoidance of nephrotoxic agents, renal dosing. She was seen/examined earlier today while on HD. (2) Nausea & vomiting Current Visit: Yes Status: Acute Appears to have resolved. Unlikely to be related to Uremia. Qualifiers: Qualified Code(s): R11.2 - Nausea with vomiting, unspecified (3) Bacteremia Current Visit: Yes Status: Acute I reviewed the notes and I see that Vanco is most likely going to be recommended, which Vanco 1gm during the last hour of HD is an option that could be given at the dialysis unit. (4) Incomplete bladder emptying Current Visit: Yes Status: Acute As per primary/Urology (5) Anemia Current Visit: No Status: Chronic Goal Hgb is 10-11 in the setting of CKD EPO Qualifiers: Anemia type: due to chronic kidney disease Chronic kidney disease stage: on chronic dialysis Qualified Code(s): N18.6 - End stage renal disease; D63.1 - Anemia in chronic kidney disease; Z99.2 - Dependence on renal dialysis Subjective Principal diagnosis: ESRD on HD, UTI Interval history: She was seen/examined earlier today while on HD. He did not affirm having cramping, chest pain or nausea and vomiting during her dialysis treatment. Objective - Vital Signs Vital signs: Vital Signs Temp Pulse Resp BP Pulse Ox 07/06/19 12:20 177/88 07/06/19 12:05 187/87 07/06/19 11:50 177/83 07/06/19 11:35 179/89 07/06/19 11:20 182/86 07/06/19 11:05 173/78 07/06/19 10:50 160/81 07/06/19 10:35 141/68 07/06/19 10:20 98.1 F 20 131/60 07/06/19 06:57 98.5 F 77 19 131/68 07/06/19 03:51 98.1 F 67 17 125/68 99 07/05/19 23:42 98.0 F 70 17 123/70 98 07/05/19 19:33 98.4 F 70 17 121/71 99 07/05/19 15:48 98.0 F 65 18 123/77 99 Intake and Output 07/05/19 07/06/19 07/06/19 23:59 07:59 15:59 Intake Total 600 / 600 Output Total 140 / 140 Balance -140 / 460 600 / 460 Intake: Oral 0 / 0 Intake, Rinseback and Flushes 600 / 600 Output: Straight Cath 140 / 140 Other: Weight 84.1 kg Blood Glucose* 134 75 76 Hemodialysis Net Fluid Removed 1497 (mL) - General Appearance General appearance: Present: well-developed, chronically ill EENT: Present: ATNC, PERRL, mucous membranes moist Neck: Present: supple Respiratory: Present: clear Cardiology: Present: no edema, normal S1, normal S2 Dialysis Vascular Access: Arteriovenous Fistula (RUE AVF) thrill: Yes bruit: Yes Gastrointestinal: Present: normoactive bowel sounds. Absent: obese Integumentary: Present: warm and dry Neurologic: Present: no focal deficit, no asterixis Musculoskeletal: Present: no cyanosis, no clubbing Psychiatric: Present: mood/affect appropriate, cooperative - Lab 07/06/19 04:48 07/06/19 04:48 Most recent lab results 07/06/19 04:48 Calcium 8.1 L Phosphorus 6.1 H Magnesium 1.9 Consult Discharge Plan - Plan Instructions: Sepsis (DC) Referrals: Jozef Sahu MD [Primary Care Provider] - Prescriptions: HYDROcodone/Acet 5/325 mg [[place] 5-325 mg] 1 tab PO Q6HR PRN 7 Days #15 tablet PRN Reason: Severe Pain
[2019-07-06] MEDS ORDERED: *HR* FentaNYL (PF) 100 MCG/2 ML VIAL IVP PRN (14:32)
[2019-07-06] MEDS ORDERED: Lidocaine Viscous Oral Soln 15 ML SOLUTION MM PRN (14:32)
[2019-07-06] MEDS ORDERED: *HR* Midazolam HCl 5 MG/5 ML VIAL IVP PRN (14:33)
[2019-07-06] MEDS ORDERED: 0.9 % Sodium Chloride 500 ML IVC ONE (14:33)
[2019-07-06 16:44] VITALS: BP 127/72
[2019-07-06] MEDS: Folic Acid 1 MG TABLET PO SCH (16:55)
[2019-07-06] MEDS ORDERED: Aminoglycoside Consult 1 EACH MC ONE (19:14)
[2019-07-09] MEDS ORDERED: Ergocalciferol (VIT D2) 50,000 UNIT (1.25MG) CAP PO SCH (16:15)
== END 2019-07-06 19:15 ==
LOC: EMEROOARM 12:28 → 2ANU 12:28 → SUATTDRO 15:24 → 2ANU 15:39
PROVIDERS: ADMIT Internal Medicine; ATTEND Internal Medicine

== ENCOUNTER 2019-08-23 10:36 | Inpatient (IN) ==
[2019-08-23] MEDS ORDERED: 0.9 % Sodium Chloride 250 ML IV ONE (11:28)
[2019-08-23 12:16] LABS: Basophils % 0.8 %; Eosinophils # 0.1 K/mcL (0.0-0.6); Eosinophils % 3.6 %; Hematocrit 38.5 % (35.3-44.9); Immature Granulocytes % 0.3 % (0-4); Lymphocytes # 0.8 K/mcL (0.6-4.6); Lymphocytes % 21.2 %; Mean Platelet Volume 10.3 fL (9.4-12.4); Monocytes # 0.3 K/mcL (0.0-1.3); Monocytes % 8.5 %; Neutrophils # 2.5 K/mcL (1.6-8.9); Platelet Count 156 K/mcL (140-400); Red Blood Count 3.97 M/mcL (3.82-4.97); Red Cell Distribution Width 13.9 % (11.5-14.5); Segmented Neutrophils % 65.6 %; White Blood Count 3.9 K/mcL (4.3-11.1)
[2019-08-23 12:17] LABS: Hemoglobin 13.1 g/dL (11.5-15.4)
[2019-08-23 12:23] LABS: Albumin 3.8 g/dL (3.5-5.7); Albumin/Globulin Ratio 1.1 (1.1-2.2); Bilirubin,Direct 0.1 mg/dL (0.0-0.2); Bilirubin,Indirect 0.4 mg/dL (0.0-1.0); Bilirubin,Total 0.5 mg/dL (0.3-1.0); Calcium 9.4 mg/dL (8.6-10.3); Globulin 3.6 g/dL (2.4-3.5); Potassium 3.8 mEq/L (3.5-5.1); Total Protein 7.4 g/dL (6.4-8.9)
[2019-08-23] MEDS ORDERED: Piperacillin/Tazobactam 3.375 GM in 0.9 % Sodium Chloride Mini Bag 100 ML IVPB ONE (13:16)
[2019-08-23] MEDS ORDERED: Ondansetron 4 MG/2 ML VIAL IVP PRN (13:38)
[2019-08-23] MEDS ORDERED: Acetaminophen 325 MG TABLET PO PRN (13:38)
[2019-08-23] MEDS ORDERED: Naloxone 0.4 MG/ML INJ IVP PRN (13:38)
[2019-08-23] MEDS ORDERED: D5% in Water 1,000 ML IVC PRN (13:48)
[2019-08-23] MEDS ORDERED: Dextrose Gel 15 GM/37.5 ML TUBE PO PRN ×2 (13:48)
[2019-08-23] MEDS ORDERED: *HR* Dextrose 50 % in Water (Syg) 50 ML SYRINGE IVP PRN (13:48)
[2019-08-23] MEDS ORDERED: Azithromycin 500 MG in 0.9 % Sodium Chloride 250 ML IVPB SCH (14:00)
[2019-08-23 14:07] LABS: Bilirubin,Urine Negative (Negative); Blood,Urine Moderate (Negative); Clarity,Urine Cloudy (Clear); Color,Urine Yellow (Yellow); Glucose,Urine (UA) Normal (Normal); Ketones,Urine Negative (Negative); Leukocyte Esterase,Urine Moderate (Negative); Nitrite,Urine Negative (Negative); PH,Urine 7.5 pH Units (5.0-8.0); Protein,Urine >=300 mg/dL (Neg-Trace); Specific Gravity,Urine 1.008 (1.010-1.025); Urobilinogen,Urine Normal (Normal)
[2019-08-23 14:08] LABS: Bacteria,Urine None Seen per hpf (None-Few); Hyaline Casts,Urine Few per lpf (None-Few); RBC,Urine 15-30 per hpf (0-3); Squamous Epithelial Cell,Urine Many per lpf (None-Few); WBC,Urine 30-50 per hpf (0-3)
[2019-08-23 15:55] LABS: Hepatitis B Surface Antibody < 3.10 mIU/mL
[2019-08-23] MEDS ORDERED: Piperacillin/Tazobactam 3.375 GM in 0.9 % Sodium Chloride Mini Bag 100 ML IVPB SCH (16:00)
[2019-08-23] MEDS ORDERED: Cefepime HCl 1,000 MG in Water for inj. (sterile) 10 ML IVP SCH (16:00)
[2019-08-23 16:06] LABS: Hepatitis B Surface Antigen Nonreactive (Nonreactive)
[2019-08-23] MEDS: Insulin LISPRO 300 UNITS/3 ML VIAL SQ SCH (16:13)
[2019-08-23] MEDS: Piperacillin/Tazobactam 3.375 GM in 0.9 % Sodium Chloride Mini Bag 100 ML IVPB SCH (17:14)
[2019-08-23] MEDS: *HR* Heparin 5,000 UNIT/ML VIAL SQ SCH (17:14)
[2019-08-23] MEDS: traMADol 50 MG TABLET PO PRN (20:33)
[2019-08-24] MEDS: Insulin LISPRO 300 UNITS/3 ML VIAL SQ SCH ×4 (04:30→17:39)
[2019-08-24] MEDS: traMADol 50 MG TABLET PO PRN (05:07)
[2019-08-24] MEDS: *HR* Heparin 5,000 UNIT/ML VIAL SQ SCH ×2 (05:08→17:38)
[2019-08-24] MEDS: Piperacillin/Tazobactam 3.375 GM in 0.9 % Sodium Chloride Mini Bag 100 ML IVPB SCH (05:24)
[2019-08-24] MEDS ORDERED: 0.9 % Sodium Chloride 250 ML IVC PRN (06:42)
[2019-08-24] MEDS ORDERED: 0.9 % Sodium Chloride 1,000 ML PRIME SCH (06:45)
[2019-08-24] MEDS ORDERED: 0.9 % Sodium Chloride 1,000 ML ONE (07:02)
[2019-08-24 07:49] LABS: Basophils % 0.8 %; Eosinophils # 0.2 K/mcL (0.0-0.6); Eosinophils % 3.5 %; Hematocrit 35.3 % (35.3-44.9); Hemoglobin 11.9 g/dL (11.5-15.4); Immature Granulocytes % 0.2 % (0-4); Lymphocytes # 0.9 K/mcL (0.6-4.6); Lymphocytes % 18.6 %; Mean Corpuscular HGB Conc 33.7 g/dL (31.6-35.5); Mean Corpuscular Volume 97.8 fL (83.0-100.0); Mean Platelet Volume 10.6 fL (9.4-12.4); Monocytes # 0.6 K/mcL (0.0-1.3); Neutrophils # 3.2 K/mcL (1.6-8.9); Platelet Count 137 K/mcL (140-400); Red Blood Count 3.61 M/mcL (3.82-4.97); Red Cell Distribution Width 14.1 % (11.5-14.5); Segmented Neutrophils % 64.9 %; White Blood Count 4.9 K/mcL (4.3-11.1)
[2019-08-24 07:55] LABS: Calcium 8.5 mg/dL (8.6-10.3); Magnesium 1.8 mg/dL (1.6-2.6); Potassium 3.8 mEq/L (3.5-5.1)
[2019-08-24] MEDS ORDERED: Famotidine 20 MG TABLET PO SCH (09:00)
[2019-08-24] MEDS ORDERED: NON-FORMULARY MEDICATION 1 EACH EACH (Calcium Carbonate [Calcium] 500 MG) PO SCH (09:00)
[2019-08-24] MEDS ORDERED: Furosemide 20 MG TABLET PO SCH (09:00)
[2019-08-24] MEDS ORDERED: ERGOCALCIFEROL 400 UNIT PO SCH (09:00)
[2019-08-24] MEDS ORDERED: Sucralfate 1 GM TABLET PO SCH (09:00)
[2019-08-24] MEDS: Azithromycin 250 MG TABLET PO SCH (14:10)
[2019-08-24] MEDS: Renal Vitamin 1 CAP CAPSULE PO SCH (14:11)
[2019-08-24] MEDS: Cholecalciferol (D-3) 1,000 UNIT (25MCG) TABLET PO SCH (14:11)
[2019-08-24] MEDS: Folic Acid 1 MG TABLET PO SCH (14:11)
[2019-08-24] MEDS: Aspirin Enteric Coated 81 MG Tablet PO SCH (14:11)
[2019-08-24] MEDS: Sucralfate 1 GM TABLET PO SCH ×2 (14:18→17:38)
[2019-08-24] MEDS: risperiDONE 1 MG TABLET PO SCH (14:18)
[2019-08-25] MEDS: Famotidine 20 MG TABLET PO SCH ×2 (00:12→20:21)
[2019-08-25] MEDS: Insulin LISPRO 300 UNITS/3 ML VIAL SQ SCH ×3 (00:13→20:23)
[2019-08-25] MEDS: risperiDONE 1 MG TABLET PO SCH ×2 (00:16→20:20)
[2019-08-25] MEDS: rOPINIRole 0.25 MG TABLET PO SCH ×2 (00:16→20:21)
[2019-08-25 05:15] LABS: Basophils % 0.8 %; Eosinophils # 0.2 K/mcL (0.0-0.6); Eosinophils % 3.7 %; Hematocrit 33.5 % (35.3-44.9); Hemoglobin 11.3 g/dL (11.5-15.4); Immature Granulocytes % 0.2 % (0-4); Lymphocytes % 20.6 %; Mean Corpuscular HGB Conc 33.7 g/dL (31.6-35.5); Mean Corpuscular Hemoglobin 33.3 pg (28.0-33.3); Mean Corpuscular Volume 98.8 fL (83.0-100.0); Mean Platelet Volume 10.3 fL (9.4-12.4); Monocytes # 0.7 K/mcL (0.0-1.3); Monocytes % 13.9 %; Platelet Count 149 K/mcL (140-400); Red Blood Count 3.39 M/mcL (3.82-4.97); Segmented Neutrophils % 60.8 %; White Blood Count 4.9 K/mcL (4.3-11.1)
[2019-08-25] MEDS: *HR* Heparin 5,000 UNIT/ML VIAL SQ SCH (05:26)
[2019-08-25 05:32] LABS: Calcium 8.7 mg/dL (8.6-10.3); Magnesium 1.9 mg/dL (1.6-2.6); Potassium 3.8 mEq/L (3.5-5.1)
[2019-08-25] MEDS ORDERED: Aminoglycoside Consult 1 EACH MC ONE (18:23)
[2019-08-25] MEDS: traMADol 50 MG TABLET PO PRN (20:21)
[2019-08-26] MEDS: Sucralfate 1 GM TABLET PO SCH ×4 (01:47→16:09)
[2019-08-26] MEDS: Metoprolol XL (24 HR) Succ 25 MG TAB.ER.24H PO SCH ×2 (01:48→08:35)
[2019-08-26] MEDS: Aspirin Enteric Coated 81 MG Tablet PO SCH ×2 (01:48→08:36)
[2019-08-26] MEDS: Lisinopril 20 MG TABLET PO SCH ×2 (01:48→08:41)
[2019-08-26] MEDS: risperiDONE 1 MG TABLET PO SCH ×3 (01:49→23:01)
[2019-08-26] MEDS: Folic Acid 1 MG TABLET PO SCH ×2 (01:49→08:36)
[2019-08-26] MEDS: Renal Vitamin 1 CAP CAPSULE PO SCH ×2 (01:49→08:35)
[2019-08-26] MEDS: Azithromycin 250 MG TABLET PO SCH ×2 (01:50→08:35)
[2019-08-26] MEDS: Cholecalciferol (D-3) 1,000 UNIT (25MCG) TABLET PO SCH ×2 (01:50→08:35)
[2019-08-26] MEDS: Insulin LISPRO 300 UNITS/3 ML VIAL SQ SCH ×5 (01:52→23:02)
[2019-08-26] MEDS: *HR* Heparin 5,000 UNIT/ML VIAL SQ SCH ×3 (01:53→17:46)
[2019-08-26 07:37] LABS: Basophils % 0.8 %; Eosinophils # 0.2 K/mcL (0.0-0.6); Eosinophils % 4.7 %; Hemoglobin 11.1 g/dL (11.5-15.4); Immature Granulocytes % 0.4 % (0-4); Lymphocytes # 1.4 K/mcL (0.6-4.6); Lymphocytes % 26.4 %; Mean Corpuscular HGB Conc 32.6 g/dL (31.6-35.5); Mean Corpuscular Hemoglobin 32.5 pg (28.0-33.3); Mean Corpuscular Volume 99.4 fL (83.0-100.0); Mean Platelet Volume 10.3 fL (9.4-12.4); Monocytes # 0.7 K/mcL (0.0-1.3); Neutrophils # 2.8 K/mcL (1.6-8.9); Platelet Count 139 K/mcL (140-400); Red Blood Count 3.42 M/mcL (3.82-4.97); Red Cell Distribution Width 13.9 % (11.5-14.5); Segmented Neutrophils % 54.7 %; White Blood Count 5.2 K/mcL (4.3-11.1)
[2019-08-26 07:58] LABS: Calcium 8.8 mg/dL (8.6-10.3); Magnesium 1.9 mg/dL (1.6-2.6); Potassium 4.2 mEq/L (3.5-5.1)
[2019-08-26] MEDS: amLODIPine 5 MG TABLET PO SCH (09:27)
[2019-08-26] MEDS ORDERED: Famotidine 20 MG TABLET PO SCH (21:00)
[2019-08-26] MEDS: rOPINIRole 0.25 MG TABLET PO SCH (23:00)
[2019-08-26] MEDS: traMADol 50 MG TABLET PO PRN (23:00)
[2019-08-27 04:55] LABS: Basophils % 0.8 %; Eosinophils # 0.3 K/mcL (0.0-0.6); Eosinophils % 4.9 %; Hematocrit 33.8 % (35.3-44.9); Hemoglobin 10.7 g/dL (11.5-15.4); Immature Granulocytes % 0.2 % (0-4); Lymphocytes # 1.2 K/mcL (0.6-4.6); Lymphocytes % 24.3 %; Mean Corpuscular HGB Conc 31.7 g/dL (31.6-35.5); Mean Corpuscular Hemoglobin 32.5 pg (28.0-33.3); Mean Corpuscular Volume 102.7 fL (83.0-100.0); Mean Platelet Volume 10.2 fL (9.4-12.4); Monocytes # 0.6 K/mcL (0.0-1.3); Monocytes % 11.1 %; Platelet Count 128 K/mcL (140-400); Red Blood Count 3.29 M/mcL (3.82-4.97); Red Cell Distribution Width 13.7 % (11.5-14.5); Segmented Neutrophils % 58.7 %; White Blood Count 5.1 K/mcL (4.3-11.1)
[2019-08-27 05:16] LABS: Calcium 8.9 mg/dL (8.6-10.3); Potassium 4.4 mEq/L (3.5-5.1)
[2019-08-27] MEDS: *HR* Heparin 5,000 UNIT/ML VIAL SQ SCH (05:53)
[2019-08-27] MEDS ORDERED: Ergocalciferol (VIT D2) 50,000 UNIT (1.25MG) CAP PO SCH (07:30)
[2019-08-27] MEDS ORDERED: Metoprolol XL (24 HR) Succ 25 MG TAB.ER.24H PO SCH (09:00)
[2019-08-27] MEDS: Sucralfate 1 GM TABLET PO SCH (09:06)
[2019-08-27] MEDS: Azithromycin 250 MG TABLET PO SCH (09:06)
[2019-08-27] MEDS: risperiDONE 1 MG TABLET PO SCH (09:07)
[2019-08-27] MEDS: Renal Vitamin 1 CAP CAPSULE PO SCH (09:07)
[2019-08-27] MEDS: Aspirin Enteric Coated 81 MG Tablet PO SCH (09:08)
[2019-08-27] MEDS: Cholecalciferol (D-3) 1,000 UNIT (25MCG) TABLET PO SCH (09:09)
[2019-08-27] MEDS: Folic Acid 1 MG TABLET PO SCH (09:09)
[2019-08-27] MEDS: amLODIPine 5 MG TABLET PO SCH (09:10)
[2019-08-27] MEDS: Insulin LISPRO 300 UNITS/3 ML VIAL SQ SCH ×3 (09:25→17:16)
[2019-08-27] MEDS ORDERED: 0.9 % Sodium Chloride 250 ML IVC PRN (09:31)
[2019-08-27 09:32] LABS: Estimated Average Glucose 134 mg/dl
[2019-08-27] MEDS ORDERED: 0.9 % Sodium Chloride 1,000 ML PRIME SCH (09:45)
[2019-08-27 16:47] VITALS: BP 149/70
== END 2019-08-27 18:24 | DRG 77 ==
LOC: EMEROOARM 10:36 → 2ANU 10:36 → SUATTDRO 13:33 → 2ANU 14:28
PROVIDERS: ADMIT Student in an Organized Health Care Education/Training Program; ATTEND Pharmacist

== ENCOUNTER 2019-08-29 05:58 | Inpatient (IN) ==
[2019-08-29] MEDS ORDERED: 0.9 % Sodium Chloride 500 ML IVC ONE (06:57)
[2019-08-29 07:05] LABS: Basophils # 0.1 K/mcL (0.0-0.2); Basophils % 1.1 %; Eosinophils # 0.2 K/mcL (0.0-0.6); Eosinophils % 3.6 %; Hematocrit 36.9 % (35.3-44.9); Immature Granulocytes % 0.2 % (0-4); Lymphocytes % 18.4 %; Mean Corpuscular HGB Conc 33.3 g/dL (31.6-35.5); Mean Corpuscular Hemoglobin 32.9 pg (28.0-33.3); Mean Corpuscular Volume 98.7 fL (83.0-100.0); Mean Platelet Volume 10.5 fL (9.4-12.4); Monocytes # 0.6 K/mcL (0.0-1.3); Monocytes % 11.5 %; Neutrophils # 3.6 K/mcL (1.6-8.9); Platelet Count 159 K/mcL (140-400); Red Blood Count 3.74 M/mcL (3.82-4.97); Red Cell Distribution Width 13.5 % (11.5-14.5); Segmented Neutrophils % 65.2 %; White Blood Count 5.6 K/mcL (4.3-11.1)
[2019-08-29 07:06] LABS: Hemoglobin 12.3 g/dL (11.5-15.4); INR 1.2; Prothrombin Time 13.3 Seconds (9.4-12.1)
[2019-08-29 07:47] LABS: Albumin 3.4 g/dL (3.5-5.7); Bilirubin,Direct 0.1 mg/dL (0.0-0.2); Bilirubin,Indirect 0.5 mg/dL (0.0-1.0); Bilirubin,Total 0.6 mg/dL (0.3-1.0); Globulin 3.5 g/dL (2.4-3.5); Magnesium 2.1 mg/dL (1.6-2.6); Phosphorous 3.7 mg/dL (2.7-4.5); Potassium 4.4 mEq/L (3.5-5.1); Total Protein 6.9 g/dL (6.4-8.9); Troponin I 0.03 ng/mL (< 0.04)
[2019-08-29] MEDS ORDERED: Naloxone 0.4 MG/ML INJ IVP PRN (09:21)
[2019-08-29] MEDS ORDERED: Acetaminophen 325 MG TABLET PO PRN (09:21)
[2019-08-29] MEDS ORDERED: Ipratropium/Albuterol Neb 3 ML IH PRN (09:29)
[2019-08-29] MEDS ORDERED: *HR* Dextrose 50 % in Water (Syg) 50 ML SYRINGE IVP PRN (09:38)
[2019-08-29] MEDS ORDERED: Dextrose Gel 15 GM/37.5 ML TUBE PO PRN ×2 (09:38)
[2019-08-29] MEDS ORDERED: D5% in Water 1,000 ML IVC PRN (09:38)
[2019-08-29 09:53] LABS: VBG HCO3 28 mEq/L (21-27); VBG PCO2 45 mmHg (41-51); VBG PO2 227 mmHg (25-50)
[2019-08-29] MEDS ORDERED: 0.9 % Sodium Chloride 250 ML IVC PRN (10:05)
[2019-08-29] MEDS ORDERED: 0.9 % Sodium Chloride 1,000 ML PRIME SCH (10:15)
[2019-08-29] MEDS: amLODIPine 5 MG TABLET PO SCH (12:55)
[2019-08-29] MEDS: Insulin LISPRO 300 UNITS/3 ML VIAL SQ SCH ×4 (12:55→20:28)
[2019-08-29] MEDS: Metoprolol XL (24 HR) Succ 25 MG TAB.ER.24H PO SCH (12:55)
[2019-08-29] MEDS: Sucralfate 1 GM TABLET PO SCH (16:46)
[2019-08-29] MEDS ORDERED: rOPINIRole 0.25 MG TABLET PO SCH (21:00)
[2019-08-29] MEDS ORDERED: Famotidine 20 MG TABLET PO SCH (21:00)
[2019-08-30 06:07] LABS: Basophils # 0.1 K/mcL (0.0-0.2); Basophils % 1.2 %; Eosinophils # 0.2 K/mcL (0.0-0.6); Eosinophils % 4.4 %; Hematocrit 37.3 % (35.3-44.9); Hemoglobin 11.8 g/dL (11.5-15.4); Immature Granulocytes % 0.2 % (0-4); Lymphocytes # 1.1 K/mcL (0.6-4.6); Lymphocytes % 21.8 %; Mean Corpuscular HGB Conc 31.6 g/dL (31.6-35.5); Mean Corpuscular Hemoglobin 32.2 pg (28.0-33.3); Mean Corpuscular Volume 101.6 fL (83.0-100.0); Mean Platelet Volume 10.4 fL (9.4-12.4); Monocytes # 0.7 K/mcL (0.0-1.3); Monocytes % 12.9 %; Neutrophils # 3.1 K/mcL (1.6-8.9); Platelet Count 150 K/mcL (140-400); Red Blood Count 3.67 M/mcL (3.82-4.97); Red Cell Distribution Width 13.2 % (11.5-14.5); Segmented Neutrophils % 59.5 %; White Blood Count 5.2 K/mcL (4.3-11.1)
[2019-08-30 06:18] LABS: Bilirubin,Urine Negative (Negative); Blood,Urine Moderate (Negative); Clarity,Urine Cloudy (Clear); Color,Urine Yellow (Yellow); Glucose,Urine (UA) Normal (Normal); Ketones,Urine Negative (Negative); Leukocyte Esterase,Urine Large (Negative); Nitrite,Urine Negative (Negative); PH,Urine 7.5 pH Units (5.0-8.0); Protein,Urine >=300 mg/dL (Neg-Trace); Specific Gravity,Urine 1.012 (1.010-1.025); Urobilinogen,Urine Normal (Normal)
[2019-08-30 06:20] LABS: Bacteria,Urine None Seen per hpf (None-Few); Hyaline Casts,Urine None Seen per lpf (None-Few); Squamous Epithelial Cell,Urine None Seen per lpf (None-Few); WBC,Urine TNTC per hpf (0-3)
[2019-08-30 06:28] LABS: Albumin 3.3 g/dL (3.5-5.7); Bilirubin,Total 0.5 mg/dL (0.3-1.0); Calcium 8.9 mg/dL (8.6-10.3); Globulin 3.3 g/dL (2.4-3.5); Phosphorous 2.7 mg/dL (2.7-4.5); Potassium 4.4 mEq/L (3.5-5.1); Total Protein 6.6 g/dL (6.4-8.9)
[2019-08-30] MEDS: Insulin LISPRO 300 UNITS/3 ML VIAL SQ SCH ×4 (07:55→21:17)
[2019-08-30] MEDS: Aspirin Enteric Coated 81 MG Tablet PO SCH (08:00)
[2019-08-30] MEDS: amLODIPine 5 MG TABLET PO SCH (08:00)
[2019-08-30] MEDS: Metoprolol XL (24 HR) Succ 25 MG TAB.ER.24H PO SCH (08:00)
[2019-08-30] MEDS: Sucralfate 1 GM TABLET PO SCH ×2 (08:00→17:10)
[2019-08-30] MEDS: Folic Acid 1 MG TABLET PO SCH (08:01)
[2019-08-30] MEDS: Renal Vitamin 1 CAP CAPSULE PO SCH (08:01)
[2019-08-30] MEDS ORDERED: Lisinopril 20 MG TABLET PO SCH (09:00)
[2019-08-30 18:19] LABS: Amphetamine Screen,Urine Negative ng/mL (Cutoff=1000); Barbiturate Screen,Urine Negative ng/mL (Cutoff=200); Benzodiazepines Screen,Urine Negative ng/mL (Cutoff=200); Cannabinoid Screen,Urine Negative ng/mL (Cutoff = 50); Cocaine Screen,Urine Negative ng/mL (Cutoff= 300); Opiate Screen,Urine Negative ng/mL (Cutoff=300); Phencyclidine Screen,Urine Negative ng/mL (Cutoff=25)
[2019-08-31 05:25] LABS: Basophils # 0.1 K/mcL (0.0-0.2); Eosinophils # 0.4 K/mcL (0.0-0.6); Eosinophils % 5.6 %; Hematocrit 35.7 % (35.3-44.9); Hemoglobin 12.2 g/dL (11.5-15.4); Immature Granulocytes % 0.3 % (0-4); Lymphocytes # 1.4 K/mcL (0.6-4.6); Lymphocytes % 22.4 %; Mean Corpuscular HGB Conc 34.2 g/dL (31.6-35.5); Mean Corpuscular Hemoglobin 32.9 pg (28.0-33.3); Mean Corpuscular Volume 96.2 fL (83.0-100.0); Mean Platelet Volume 10.2 fL (9.4-12.4); Monocytes # 0.8 K/mcL (0.0-1.3); Monocytes % 12.4 %; Neutrophils # 3.6 K/mcL (1.6-8.9); Platelet Count 166 K/mcL (140-400); Red Blood Count 3.71 M/mcL (3.82-4.97); Red Cell Distribution Width 13.1 % (11.5-14.5); Segmented Neutrophils % 58.3 %; White Blood Count 6.2 K/mcL (4.3-11.1)
[2019-08-31] MEDS: Sucralfate 1 GM TABLET PO SCH (08:16)
[2019-08-31] MEDS: Metoprolol XL (24 HR) Succ 25 MG TAB.ER.24H PO SCH (08:16)
[2019-08-31] MEDS: Insulin LISPRO 300 UNITS/3 ML VIAL SQ SCH (08:16)
[2019-08-31] MEDS: Folic Acid 1 MG TABLET PO SCH (08:16)
[2019-08-31] MEDS: amLODIPine 5 MG TABLET PO SCH (08:16)
[2019-08-31] MEDS: Aspirin Enteric Coated 81 MG Tablet PO SCH (08:16)
[2019-08-31] MEDS: Renal Vitamin 1 CAP CAPSULE PO SCH (08:16)
[2019-08-31] MEDS ORDERED: 0.9 % Sodium Chloride 250 ML IVC PRN (08:32)
[2019-08-31] MEDS ORDERED: 0.9 % Sodium Chloride 1,000 ML PRIME SCH (08:45)
[2019-08-31 14:17] VITALS: BP 129/66
== END 2019-08-31 15:35 | DRG 91 ==
LOC: SUATTDRO → 2ANU 05:58 → EMEROOARM 05:58 → SUATTDRO 09:41 → 2ANU 09:45
PROVIDERS: ADMIT Internal Medicine; ATTEND Internal Medicine

== ENCOUNTER 2019-10-15 17:11 | Inpatient (IN) ==
[2019-10-15] MEDS ORDERED: Ertapenem 1,000 MG in 0.9 % Sodium Chloride Mini Bag 100 ML IVPB STA (18:37)
[2019-10-15 18:40] LABS: Basophils % 0.7 %; Eosinophils # 0.2 K/mcL (0.0-0.6); Hematocrit 30.8 % (35.3-44.9); Hemoglobin 10.2 g/dL (11.5-15.4); Immature Granulocytes % 0.4 % (0-4); Lymphocytes # 1.2 K/mcL (0.6-4.6); Lymphocytes % 21.2 %; Mean Corpuscular HGB Conc 33.1 g/dL (31.6-35.5); Mean Corpuscular Hemoglobin 33.1 pg (28.0-33.3); Mean Platelet Volume 9.6 fL (9.4-12.4); Monocytes # 0.6 K/mcL (0.0-1.3); Monocytes % 10.1 %; Neutrophils # 3.6 K/mcL (1.6-8.9); Platelet Count 174 K/mcL (140-400); Red Blood Count 3.08 M/mcL (3.82-4.97); Red Cell Distribution Width 13.9 % (11.5-14.5); Segmented Neutrophils % 64.6 %; White Blood Count 5.6 K/mcL (4.3-11.1)
[2019-10-15 19:00] LABS: Albumin 3.2 g/dL (3.5-5.7); Albumin/Globulin Ratio 1.2 (1.1-2.2); Bilirubin,Direct 0.1 mg/dL (0.0-0.2); Bilirubin,Indirect 0.3 mg/dL (0.0-1.0); Bilirubin,Total 0.4 mg/dL (0.3-1.0); Calcium 8.1 mg/dL (8.6-10.3); Globulin 2.7 g/dL (2.4-3.5); Magnesium 1.8 mg/dL (1.6-2.6); Potassium 4.3 mEq/L (3.5-5.1); Total Protein 5.9 g/dL (6.4-8.9)
[2019-10-15 19:07] LABS: Bilirubin,Urine Negative (Negative); Blood,Urine Negative (Negative); Clarity,Urine Cloudy (Clear); Color,Urine Yellow (Yellow); Glucose,Urine (UA) Normal (Normal); Ketones,Urine Negative (Negative); Leukocyte Esterase,Urine Large (Negative); Nitrite,Urine Negative (Negative); Protein,Urine >=300 mg/dL (Neg-Trace); Specific Gravity,Urine 1.013 (1.010-1.025); Urobilinogen,Urine Normal (Normal)
[2019-10-15 19:09] LABS: Hyaline Casts,Urine Few per lpf (None-Few); RBC,Urine 0-3 per hpf (0-3); Squamous Epithelial Cell,Urine Many per lpf (None-Few); WBC,Urine TNTC per hpf (0-3)
[2019-10-15 19:21] LABS: Bacteria,Urine Moderate per hpf (None-Few); Yeast,Urine Few per hpf (None Seen)
[2019-10-15] MEDS ORDERED: Acetaminophen 325 MG TABLET PO PRN (22:37)
[2019-10-15] MEDS: Ondansetron 4 MG/2 ML VIAL IVP PRN (23:04)
[2019-10-16] MEDS: *HR* HYDROcodone/Acet 5/325 mg TABLET PO PRN ×3 (02:11→22:30)
[2019-10-16] MEDS ORDERED: Naloxone 0.4 MG/ML INJ IVP PRN (02:19)
[2019-10-16] MEDS ORDERED: Dextrose Gel 15 GM/37.5 ML TUBE PO PRN ×2 (02:21)
[2019-10-16] MEDS ORDERED: *HR* Dextrose 50 % in Water (Syg) 50 ML SYRINGE IVP PRN (02:21)
[2019-10-16] MEDS ORDERED: D5% in Water 1,000 ML IVC PRN (02:21)
[2019-10-16 05:29] LABS: Hemoglobin 10.4 g/dL (11.5-15.4); Mean Corpuscular HGB Conc 34.7 g/dL (31.6-35.5); Mean Corpuscular Hemoglobin 33.9 pg (28.0-33.3); Mean Corpuscular Volume 97.7 fL (83.0-100.0); Mean Platelet Volume 10.2 fL (9.4-12.4); Platelet Count 183 K/mcL (140-400); Red Blood Count 3.07 M/mcL (3.82-4.97); Red Cell Distribution Width 14.1 % (11.5-14.5); White Blood Count 5.3 K/mcL (4.3-11.1)
[2019-10-16 05:40] LABS: Albumin 3.2 g/dL (3.5-5.7); Albumin/Globulin Ratio 1.1 (1.1-2.2); Bilirubin,Total 0.5 mg/dL (0.3-1.0); Calcium 8.3 mg/dL (8.6-10.3); Globulin 2.8 g/dL (2.4-3.5); Magnesium 1.9 mg/dL (1.6-2.6); Phosphorous 2.3 mg/dL (2.7-4.5); Potassium 5.1 mEq/L (3.5-5.1)
[2019-10-16] MEDS: Insulin LISPRO 300 UNITS/3 ML VIAL SQ SCH ×3 (08:13→17:37)
[2019-10-16] MEDS: Ondansetron 4 MG/2 ML VIAL IVP PRN ×2 (08:44→17:46)
[2019-10-16] MEDS ORDERED: Ertapenem 1,000 MG in 0.9 % Sodium Chloride Mini Bag 100 ML IVPB SCH (09:00)
[2019-10-16] MEDS ORDERED: D5% in 0.45% NACL 1,000 ML IVC SCH (13:00)
[2019-10-16] MEDS: Pantoprazole 40 MG VIAL IVP SCH (13:30)
[2019-10-16] MEDS: *HR* Heparin 5,000 UNIT/ML VIAL SQ SCH (17:46)
[2019-10-16 18:26] LABS: Hepatitis B Surface Antibody < 3.10 mIU/mL
[2019-10-16 18:36] LABS: Hepatitis B Surface Antigen Nonreactive (Nonreactive)
[2019-10-16] MEDS ORDERED: Insulin LISPRO 300 UNITS/3 ML VIAL SQ SCH (21:00)
[2019-10-17] MEDS: Insulin LISPRO 300 UNITS/3 ML VIAL SQ SCH ×4 (05:48→17:45)
[2019-10-17] MEDS: *HR* Heparin 5,000 UNIT/ML VIAL SQ SCH ×2 (06:22→17:44)
[2019-10-17] MEDS: *HR* HYDROcodone/Acet 5/325 mg TABLET PO PRN ×2 (06:22→13:46)
[2019-10-17] MEDS ORDERED: 0.9 % Sodium Chloride 250 ML IVC PRN (07:19)
[2019-10-17] MEDS ORDERED: 0.9 % Sodium Chloride 1,000 ML PRIME SCH (07:30)
[2019-10-17 08:46] LABS: Basophils % 0.4 %; Eosinophils # 0.3 K/mcL (0.0-0.6); Eosinophils % 5.2 %; Hematocrit 29.9 % (35.3-44.9); Immature Granulocytes % 0.4 % (0-4); Lymphocytes # 1.3 K/mcL (0.6-4.6); Lymphocytes % 26.4 %; Mean Corpuscular HGB Conc 33.4 g/dL (31.6-35.5); Mean Corpuscular Hemoglobin 33.2 pg (28.0-33.3); Mean Corpuscular Volume 99.3 fL (83.0-100.0); Mean Platelet Volume 10.1 fL (9.4-12.4); Monocytes # 0.5 K/mcL (0.0-1.3); Monocytes % 10.9 %; Neutrophils # 2.8 K/mcL (1.6-8.9); Platelet Count 167 K/mcL (140-400); Red Blood Count 3.01 M/mcL (3.82-4.97); Red Cell Distribution Width 13.8 % (11.5-14.5); Segmented Neutrophils % 56.7 %
[2019-10-17 09:01] LABS: Calcium 8.5 mg/dL (8.6-10.3); Magnesium 1.9 mg/dL (1.6-2.6); Phosphorous 3.4 mg/dL (2.7-4.5); Potassium 4.8 mEq/L (3.5-5.1)
[2019-10-17] MEDS: Ondansetron 4 MG/2 ML VIAL IVP PRN (09:51)
[2019-10-17] MEDS: Pantoprazole 40 MG VIAL IVP SCH (13:03)
[2019-10-17] MEDS: Sucralfate 1 GM TABLET PO SCH (17:44)
[2019-10-17] MEDS: amLODIPine 5 MG TABLET PO SCH (21:38)
[2019-10-17] MEDS: Mirtazapine 15 MG TABLET PO SCH (21:38)
[2019-10-18] MEDS: Insulin LISPRO 300 UNITS/3 ML VIAL SQ SCH ×4 (01:30→16:39)
[2019-10-18 06:07] LABS: Hematocrit 32.5 % (35.3-44.9); Hemoglobin 10.7 g/dL (11.5-15.4); Mean Corpuscular HGB Conc 32.9 g/dL (31.6-35.5); Mean Corpuscular Hemoglobin 32.8 pg (28.0-33.3); Mean Corpuscular Volume 99.7 fL (83.0-100.0); Mean Platelet Volume 9.9 fL (9.4-12.4); Platelet Count 183 K/mcL (140-400); Red Blood Count 3.26 M/mcL (3.82-4.97); Red Cell Distribution Width 13.6 % (11.5-14.5); White Blood Count 4.8 K/mcL (4.3-11.1)
[2019-10-18] MEDS: *HR* Heparin 5,000 UNIT/ML VIAL SQ SCH ×2 (06:39→17:36)
[2019-10-18] MEDS: Sucralfate 1 GM TABLET PO SCH ×2 (06:39→17:36)
[2019-10-18] MEDS: Folic Acid 1 MG TABLET PO SCH (08:47)
[2019-10-18] MEDS: Aspirin Enteric Coated 81 MG Tablet PO SCH (08:47)
[2019-10-18] MEDS: Renal Vitamin 1 CAP CAPSULE PO SCH (08:48)
[2019-10-18] MEDS ORDERED: Lisinopril 20 MG TABLET PO SCH (09:00)
[2019-10-18] MEDS: *HR* HYDROcodone/Acet 5/325 mg TABLET PO PRN ×2 (09:08→22:10)
[2019-10-18] MEDS ORDERED: Insulin LISPRO 300 UNITS/3 ML VIAL SQ SCH (21:00)
[2019-10-18] MEDS: amLODIPine 5 MG TABLET PO SCH (22:07)
[2019-10-18] MEDS: Mirtazapine 15 MG TABLET PO SCH (22:07)
[2019-10-19] MEDS: *HR* Heparin 5,000 UNIT/ML VIAL SQ SCH ×2 (05:24→18:22)
[2019-10-19] MEDS ORDERED: 0.9 % Sodium Chloride 250 ML IVC PRN (06:08)
[2019-10-19 08:04] LABS: Hematocrit 32.5 % (35.3-44.9); Hemoglobin 10.8 g/dL (11.5-15.4); Mean Corpuscular HGB Conc 33.2 g/dL (31.6-35.5); Mean Corpuscular Hemoglobin 32.9 pg (28.0-33.3); Mean Corpuscular Volume 99.1 fL (83.0-100.0); Mean Platelet Volume 10.3 fL (9.4-12.4); Platelet Count 164 K/mcL (140-400); Red Blood Count 3.28 M/mcL (3.82-4.97); Red Cell Distribution Width 13.5 % (11.5-14.5); White Blood Count 4.1 K/mcL (4.3-11.1)
[2019-10-19 08:17] LABS: Calcium 8.6 mg/dL (8.6-10.3)
[2019-10-19] MEDS: Renal Vitamin 1 CAP CAPSULE PO SCH (09:18)
[2019-10-19] MEDS: Insulin LISPRO 300 UNITS/3 ML VIAL SQ SCH ×4 (09:18→16:50)
[2019-10-19] MEDS: Sucralfate 1 GM TABLET PO SCH ×2 (09:18→16:43)
[2019-10-19] MEDS: Folic Acid 1 MG TABLET PO SCH (09:18)
[2019-10-19] MEDS: Aspirin Enteric Coated 81 MG Tablet PO SCH (09:18)
[2019-10-19] MEDS: *HR* HYDROcodone/Acet 5/325 mg TABLET PO PRN (09:27)
[2019-10-19] MEDS ORDERED: FLU Vac QV 19-20 (6Month+)/PF 0.5 ML SYRINGE IM ONE (13:25)
[2019-10-19 15:34] VITALS: BP 104/47
[2019-10-22] MEDS ORDERED: Ergocalciferol (VIT D2) 50,000 UNIT (1.25MG) CAP PO SCH (09:00)
== END 2019-10-19 18:47 | DRG 689 ==
LOC: EMEROOARM 17:11 → 2ANU 17:11 → SUATTDRO 10-16 15:53
PROVIDERS: ADMIT Family Medicine; ATTEND Internal Medicine

== ENCOUNTER 2020-02-26 00:54 | Inpatient (IN) ==
[2020-02-26] MEDS ORDERED: Aspirin 81 MG TAB.CHEW PO ONE (01:03)
[2020-02-26] MEDS ORDERED: Isovue-370 500 ML BOTTLE IVP ONE (01:03)
[2020-02-26 02:15] LABS: Bilirubin,Urine Negative (Negative); Blood,Urine Large (Negative); Clarity,Urine Turbid (Clear); Color,Urine Yellow (Yellow); Glucose,Urine (UA) 250 mg/dL (Normal); Ketones,Urine Negative (Negative); Leukocyte Esterase,Urine Large (Negative); Nitrite,Urine Negative (Negative); Protein,Urine >=300 mg/dL (Neg-Trace); Specific Gravity,Urine 1.019 (1.010-1.025); Urobilinogen,Urine Normal (Normal)
[2020-02-26 02:34] LABS: BUN/Creatinine Ratio 13 (6-26); Blood Urea Nitrogen 53 mg/dL (8-23); Calcium 8.3 mg/dL (8.6-10.3); Carbon Dioxide 22 mEq/L (23-29); Chloride 98 mEq/L (98-107); Glucose 344 mg/dL (70-105); Osmolality,Calculated 306 (280-300); Potassium 4.6 mEq/L (3.5-5.1); Sodium 134 mEq/L (136-145); eGFR For African Americans 13 (> 60); eGFR For Non-African Americans 10 (> 60)
[2020-02-26 02:57] LABS: Squamous Epithelial Cell,Urine Moderate per lpf (None-Few); WBC,Urine TNTC per hpf (0-3)
[2020-02-26 02:58] LABS: Bacteria,Urine Moderate per hpf (None-Few)
[2020-02-26 03:23] LABS: Troponin I < 0.03 ng/mL (< 0.04)
[2020-02-26 03:33] LABS: Basophils % 0.5 %; Eosinophils # 0.2 K/mcL (0.0-0.6); Eosinophils % 2.7 %; Hematocrit 33.4 % (35.3-44.9); Hemoglobin 10.7 g/dL (11.5-15.4); Immature Granulocytes % 0.2 % (0-4); Lymphocytes # 1.5 K/mcL (0.6-4.6); Lymphocytes % 26.6 %; Mean Corpuscular Hemoglobin 32.9 pg (28.0-33.3); Mean Corpuscular Volume 102.8 fL (83.0-100.0); Mean Platelet Volume 10.6 fL (9.4-12.4); Monocytes # 0.7 K/mcL (0.0-1.3); Monocytes % 12.2 %; Neutrophils # 3.2 K/mcL (1.6-8.9); Platelet Count 127 K/mcL (140-400); Red Blood Count 3.25 M/mcL (3.82-4.97); Segmented Neutrophils % 57.8 %; White Blood Count 5.5 K/mcL (4.3-11.1)
[2020-02-26] MEDS ORDERED: Naloxone 0.4 MG/ML INJ IVP PRN (06:07)
[2020-02-26] MEDS ORDERED: *HR* Dextrose 50 % in Water (Syg) 50 ML SYRINGE IVP PRN (06:20)
[2020-02-26] MEDS ORDERED: Dextrose Gel 15 GM/37.5 ML TUBE PO PRN ×2 (06:20)
[2020-02-26] MEDS ORDERED: D5% in Water 1,000 ML IVC PRN (06:20)
[2020-02-26] MEDS ORDERED: Ipratropium/Albuterol Neb 3 ML IH PRN (06:58)
[2020-02-26] MEDS ORDERED: Regadenoson 0.4 MG/5 ML SYRINGE IVP ONE (08:49)
[2020-02-26] MEDS ORDERED: CRANBERRY FRUIT 450 MG PO SCH (09:00)
[2020-02-26] MEDS: Folic Acid 1 MG TABLET PO SCH (09:23)
[2020-02-26] MEDS: Sucralfate 1 GM TABLET PO SCH ×2 (09:24→21:07)
[2020-02-26] MEDS: Aspirin Enteric Coated 81 MG Tablet PO SCH (09:24)
[2020-02-26 11:27] LABS: Hepatitis B Surface Antibody < 3.10 mIU/mL
[2020-02-26 11:38] LABS: Hepatitis B Surface Antigen Nonreactive (Nonreactive)
[2020-02-26] MEDS ORDERED: Insulin LISPRO 300 UNITS/3 ML VIAL SQ SCH (12:00)
[2020-02-26] MEDS: Isosorbide MONOnitrate (24 HR) 30 MG TAB.ER.24H PO SCH (14:20)
[2020-02-26] MEDS: Insulin LISPRO 300 UNITS/3 ML VIAL SQ SCH ×2 (16:50→21:12)
[2020-02-26] MEDS: *HR* Heparin 5,000 UNIT/ML VIAL SQ SCH (16:50)
[2020-02-26] MEDS ORDERED: Acetaminophen 325 MG TABLET PO PRN (17:27)
[2020-02-26] MEDS ORDERED: NON-FORMULARY MEDICATION 1 EACH EACH (Pramipexole Di-Hcl [Pramipexole Dihydrochloride] 0.1 PO SCH (21:00)
[2020-02-26] MEDS: amLODIPine 5 MG TABLET PO SCH (21:08)
[2020-02-26] MEDS: Mirtazapine 15 MG TABLET PO SCH (21:08)
[2020-02-27 02:24] LABS: Basophils % 0.3 %; Eosinophils # 0.1 K/mcL (0.0-0.6); Eosinophils % 0.5 %; Hematocrit 33.9 % (35.3-44.9); Hemoglobin 10.8 g/dL (11.5-15.4); Immature Granulocytes % 0.3 % (0-4); Lymphocytes % 10.6 %; Mean Corpuscular HGB Conc 31.9 g/dL (31.6-35.5); Mean Corpuscular Hemoglobin 33.9 pg (28.0-33.3); Mean Corpuscular Volume 106.3 fL (83.0-100.0); Mean Platelet Volume 11.1 fL (9.4-12.4); Monocytes # 0.8 K/mcL (0.0-1.3); Platelet Count 137 K/mcL (140-400); Red Blood Count 3.19 M/mcL (3.82-4.97); Red Cell Distribution Width 13.1 % (11.5-14.5); Segmented Neutrophils % 80.3 %
[2020-02-27 02:25] LABS: Neutrophils # 7.6 K/mcL (1.6-8.9); White Blood Count 9.4 K/mcL (4.3-11.1)
[2020-02-27 02:44] LABS: Calcium 8.2 mg/dL (8.6-10.3); Chol/HDL Ratio 3.3 (0-4.9); Potassium 4.9 mEq/L (3.5-5.1)
[2020-02-27] MEDS: *HR* Heparin 5,000 UNIT/ML VIAL SQ SCH ×2 (05:56→17:50)
[2020-02-27] MEDS: Insulin LISPRO 300 UNITS/3 ML VIAL SQ SCH ×4 (07:24→20:41)
[2020-02-27] MEDS: Calcium Acetate 667 MG CAPSULE PO SCH ×3 (07:59→13:26)
[2020-02-27] MEDS: Renal Vitamin 1 CAP CAPSULE PO SCH (07:59)
[2020-02-27] MEDS: Sucralfate 1 GM TABLET PO SCH ×2 (07:59→20:40)
[2020-02-27] MEDS: Aspirin Enteric Coated 81 MG Tablet PO SCH (07:59)
[2020-02-27] MEDS: Folic Acid 1 MG TABLET PO SCH (07:59)
[2020-02-27] MEDS ORDERED: 0.9 % Sodium Chloride 1,000 ML ONE (08:06)
[2020-02-27] MEDS ORDERED: 0.9 % Sodium Chloride 250 ML IVC PRN (08:18)
[2020-02-27] MEDS ORDERED: 0.9 % Sodium Chloride 1,000 ML PRIME SCH (08:30)
[2020-02-27] MEDS: Isosorbide MONOnitrate (24 HR) 30 MG TAB.ER.24H PO SCH (11:17)
[2020-02-27] MEDS: Nitroglycerin 0.4 MG TAB.SUBL SL PRN ×2 (11:19→11:48)
[2020-02-27] MEDS: Ondansetron 4 MG/2 ML VIAL IVP PRN (13:36)
[2020-02-27] MEDS: Mirtazapine 15 MG TABLET PO SCH (20:39)
[2020-02-27] MEDS: amLODIPine 5 MG TABLET PO SCH (20:40)
[2020-02-28 03:02] LABS: Hematocrit 35.4 % (35.3-44.9); Hemoglobin 11.3 g/dL (11.5-15.4); Mean Corpuscular HGB Conc 31.9 g/dL (31.6-35.5); Mean Corpuscular Hemoglobin 32.8 pg (28.0-33.3); Mean Corpuscular Volume 102.6 fL (83.0-100.0); Mean Platelet Volume 11.2 fL (9.4-12.4); Platelet Count 138 K/mcL (140-400); Red Blood Count 3.45 M/mcL (3.82-4.97); Red Cell Distribution Width 12.7 % (11.5-14.5); White Blood Count 5.1 K/mcL (4.3-11.1)
[2020-02-28 03:23] LABS: Calcium 8.5 mg/dL (8.6-10.3); Potassium 4.9 mEq/L (3.5-5.1)
[2020-02-28] MEDS: *HR* Heparin 5,000 UNIT/ML VIAL SQ SCH ×2 (05:38→16:53)
[2020-02-28] MEDS: Ondansetron 4 MG/2 ML VIAL IVP PRN ×2 (08:01→16:53)
[2020-02-28] MEDS: Renal Vitamin 1 CAP CAPSULE PO SCH (08:05)
[2020-02-28] MEDS: Isosorbide MONOnitrate (24 HR) 30 MG TAB.ER.24H PO SCH (08:06)
[2020-02-28] MEDS: Aspirin Enteric Coated 81 MG Tablet PO SCH (08:06)
[2020-02-28] MEDS: Sucralfate 1 GM TABLET PO SCH ×2 (08:06→21:01)
[2020-02-28] MEDS: Folic Acid 1 MG TABLET PO SCH (08:06)
[2020-02-28] MEDS: Calcium Acetate 667 MG CAPSULE PO SCH ×3 (08:07→16:52)
[2020-02-28] MEDS: Insulin LISPRO 300 UNITS/3 ML VIAL SQ SCH ×4 (08:07→21:01)
[2020-02-28] MEDS: amLODIPine 5 MG TABLET PO SCH (21:01)
[2020-02-28] MEDS: Mirtazapine 15 MG TABLET PO SCH (21:01)
[2020-02-29 04:16] LABS: Hematocrit 31.9 % (35.3-44.9); Hemoglobin 10.5 g/dL (11.5-15.4); Mean Corpuscular HGB Conc 32.9 g/dL (31.6-35.5); Mean Corpuscular Hemoglobin 33.7 pg (28.0-33.3); Mean Corpuscular Volume 102.2 fL (83.0-100.0); Platelet Count 128 K/mcL (140-400); Red Blood Count 3.12 M/mcL (3.82-4.97); Red Cell Distribution Width 12.6 % (11.5-14.5); White Blood Count 5.6 K/mcL (4.3-11.1)
[2020-02-29 04:28] LABS: Calcium 8.6 mg/dL (8.6-10.3); Potassium 5.9 mEq/L (3.5-5.1)
[2020-02-29] MEDS: *HR* Heparin 5,000 UNIT/ML VIAL SQ SCH ×2 (05:43→17:12)
[2020-02-29] MEDS ORDERED: 0.9 % Sodium Chloride 250 ML IVC PRN (07:49)
[2020-02-29] MEDS: Renal Vitamin 1 CAP CAPSULE PO SCH (08:00)
[2020-02-29] MEDS: Aspirin Enteric Coated 81 MG Tablet PO SCH (08:00)
[2020-02-29] MEDS ORDERED: 0.9 % Sodium Chloride 1,000 ML PRIME SCH (08:00)
[2020-02-29] MEDS: Calcium Acetate 667 MG CAPSULE PO SCH ×3 (08:01→17:11)
[2020-02-29] MEDS: Folic Acid 1 MG TABLET PO SCH (08:01)
[2020-02-29] MEDS: Ondansetron 4 MG/2 ML VIAL IVP PRN (08:01)
[2020-02-29] MEDS: Isosorbide MONOnitrate (24 HR) 30 MG TAB.ER.24H PO SCH (08:01)
[2020-02-29] MEDS: Insulin LISPRO 300 UNITS/3 ML VIAL SQ SCH ×4 (08:01→21:16)
[2020-02-29] MEDS: Sucralfate 1 GM TABLET PO SCH ×2 (08:01→21:17)
[2020-02-29 11:40] LABS: INR 1.1; Prothrombin Time 12.9 Seconds (9.4-12.1)
[2020-02-29] MEDS ORDERED: *HR* Alteplase (Cathflo) 2 MG VIAL IVP ONE (13:43)
[2020-02-29] MEDS ORDERED: Heparin 1,000 UNITS/500 mL 500 ML ONE (13:53)
[2020-02-29] MEDS ORDERED: 0.9 % Sodium Chloride 500 ML ONE ×3 (13:54→15:27)
[2020-02-29] MEDS ORDERED: *HR* Midazolam HCl 2 MG/2 ML VIAL IVP ONE (14:41)
[2020-02-29] MEDS ORDERED: *HR* FentaNYL (PF) 100 MCG/2 ML VIAL IVP ONE (14:41)
[2020-02-29] MEDS ORDERED: Isovue-300 150 ML INFUS..BTL IVP ONE ×2 (14:49→16:32)
[2020-02-29] MEDS ORDERED: *HR* Heparin 5,000 UNIT/ML VIAL ONE (15:07)
[2020-02-29] MEDS: Mirtazapine 15 MG TABLET PO SCH (21:17)
[2020-02-29] MEDS: amLODIPine 5 MG TABLET PO SCH (21:17)
[2020-03-01 05:09] LABS: Hematocrit 29.5 % (35.3-44.9)
[2020-03-01 05:11] LABS: Hemoglobin 9.8 g/dL (11.5-15.4); Immature Platelets 4.1 % (1.1-6.1); Mean Corpuscular HGB Conc 33.2 g/dL (31.6-35.5); Mean Corpuscular Hemoglobin 33.8 pg (28.0-33.3); Mean Corpuscular Volume 101.7 fL (83.0-100.0); Mean Platelet Volume 10.8 fL (9.4-12.4); Red Blood Count 2.9 M/mcL (3.82-4.97); Red Cell Distribution Width 12.4 % (11.5-14.5); White Blood Count 5.1 K/mcL (4.3-11.1)
[2020-03-01 05:12] LABS: INR 1.2; Prothrombin Time 13.4 Seconds (9.4-12.1)
[2020-03-01 05:29] LABS: Calcium 8.2 mg/dL (8.6-10.3); Potassium 5.9 mEq/L (3.5-5.1)
[2020-03-01] MEDS: *HR* Heparin 5,000 UNIT/ML VIAL SQ SCH ×2 (05:58→16:40)
[2020-03-01] MEDS ORDERED: 0.9 % Sodium Chloride 250 ML IVC PRN (06:34)
[2020-03-01] MEDS ORDERED: Ondansetron 4 MG/2 ML VIAL IVP SCH (07:00)
[2020-03-01] MEDS: Renal Vitamin 1 CAP CAPSULE PO SCH (07:48)
[2020-03-01] MEDS: Sucralfate 1 GM TABLET PO SCH ×2 (07:48→22:25)
[2020-03-01] MEDS: Aspirin Enteric Coated 81 MG Tablet PO SCH (07:48)
[2020-03-01] MEDS: Calcium Acetate 667 MG CAPSULE PO SCH ×3 (07:48→16:18)
[2020-03-01] MEDS: Isosorbide MONOnitrate (24 HR) 30 MG TAB.ER.24H PO SCH (07:48)
[2020-03-01] MEDS: Folic Acid 1 MG TABLET PO SCH (07:48)
[2020-03-01] MEDS: Insulin LISPRO 300 UNITS/3 ML VIAL SQ SCH ×4 (07:49→22:25)
[2020-03-01] MEDS ORDERED: Prochlorperazine 10 MG/2 ML VIAL IVP ONE (13:15)
[2020-03-01] MEDS: amLODIPine 5 MG TABLET PO SCH (22:25)
[2020-03-01] MEDS: Mirtazapine 15 MG TABLET PO SCH (22:25)
[2020-03-02 01:46] LABS: Calcium 8.4 mg/dL (8.6-10.3); Potassium 4.4 mEq/L (3.5-5.1)
[2020-03-02] MEDS: Prochlorperazine 10 MG/2 ML VIAL IVP SCH (06:48)
[2020-03-02] MEDS: *HR* Heparin 5,000 UNIT/ML VIAL SQ SCH ×2 (06:48→17:12)
[2020-03-02] MEDS: Calcium Acetate 667 MG CAPSULE PO SCH ×3 (07:41→17:12)
[2020-03-02] MEDS: Isosorbide MONOnitrate (24 HR) 30 MG TAB.ER.24H PO SCH (07:41)
[2020-03-02] MEDS: Sucralfate 1 GM TABLET PO SCH ×2 (07:41→22:11)
[2020-03-02] MEDS: Renal Vitamin 1 CAP CAPSULE PO SCH (07:42)
[2020-03-02] MEDS: Insulin LISPRO 300 UNITS/3 ML VIAL SQ SCH ×4 (07:42→21:14)
[2020-03-02] MEDS: Folic Acid 1 MG TABLET PO SCH (07:42)
[2020-03-02] MEDS: Aspirin Enteric Coated 81 MG Tablet PO SCH (07:42)
[2020-03-02] MEDS: amLODIPine 5 MG TABLET PO SCH (22:10)
[2020-03-02] MEDS: Mirtazapine 15 MG TABLET PO SCH (22:11)
[2020-03-03 01:50] LABS: Basophils % 0.4 %; Eosinophils # 0.3 K/mcL (0.0-0.6); Eosinophils % 4.8 %; Hemoglobin 9.3 g/dL (11.5-15.4); Immature Granulocytes % 0.2 % (0-4); Lymphocytes # 1.5 K/mcL (0.6-4.6); Lymphocytes % 26.7 %; Mean Corpuscular HGB Conc 33.2 g/dL (31.6-35.5); Mean Corpuscular Hemoglobin 33.6 pg (28.0-33.3); Mean Corpuscular Volume 101.1 fL (83.0-100.0); Mean Platelet Volume 10.6 fL (9.4-12.4); Monocytes # 0.7 K/mcL (0.0-1.3); Monocytes % 12.3 %; Platelet Count 123 K/mcL (140-400); Red Blood Count 2.77 M/mcL (3.82-4.97); Segmented Neutrophils % 55.6 %; White Blood Count 5.4 K/mcL (4.3-11.1)
[2020-03-03 02:02] LABS: Calcium 8.3 mg/dL (8.6-10.3)
[2020-03-03] MEDS: *HR* Heparin 5,000 UNIT/ML VIAL SQ SCH (04:06)
[2020-03-03] MEDS: Prochlorperazine 10 MG/2 ML VIAL IVP SCH (06:05)
[2020-03-03] MEDS ORDERED: 0.9 % Sodium Chloride 250 ML IVC PRN (07:10)
[2020-03-03] MEDS: Insulin LISPRO 300 UNITS/3 ML VIAL SQ SCH ×2 (07:45→12:18)
[2020-03-03] MEDS ORDERED: Isosorbide MONOnitrate (24 HR) 30 MG TAB.ER.24H PO SCH (09:00)
[2020-03-03] MEDS: Sucralfate 1 GM TABLET PO SCH ×2 (10:10→11:10)
[2020-03-03] MEDS: Calcium Acetate 667 MG CAPSULE PO SCH ×2 (10:10→12:18)
[2020-03-03] MEDS: Folic Acid 1 MG TABLET PO SCH (11:10)
[2020-03-03] MEDS: Aspirin Enteric Coated 81 MG Tablet PO SCH (11:11)
[2020-03-03] MEDS: Renal Vitamin 1 CAP CAPSULE PO SCH (11:12)
[2020-03-03 11:38] VITALS: BP 111/61
== END 2020-03-03 15:30 | DRG 673 ==
LOC: EMEROOARM 00:54 → 2ANU 00:54 → SUATTDRO 04:56 → 2ANU 05:47 → SUATTDRO 02-27 15:45
PROVIDERS: ADMIT Internal Medicine; ATTEND Internal Medicine

== ENCOUNTER 2020-06-14 06:37 | Inpatient (IN) ==
[2020-06-14] MEDS ORDERED: 0.9 % Sodium Chloride 1,000 ML IVC ONE (06:48)
[2020-06-14 07:27] LABS: Basophils % 0.6 %; Eosinophils # 0.2 K/mcL (0.0-0.6); Eosinophils % 3.1 %; Hematocrit 33.7 % (35.3-44.9); Hemoglobin 10.3 g/dL (11.5-15.4); Immature Granulocytes % 0.3 % (0-4); Lymphocytes # 1.1 K/mcL (0.6-4.6); Lymphocytes % 17.3 %; Mean Corpuscular HGB Conc 30.6 g/dL (31.6-35.5); Mean Corpuscular Volume 101.5 fL (83.0-100.0); Mean Platelet Volume 10.3 fL (9.4-12.4); Monocytes # 0.7 K/mcL (0.0-1.3); Monocytes % 11.5 %; Neutrophils # 4.2 K/mcL (1.6-8.9); Platelet Count 157 K/mcL (140-400); Red Blood Count 3.32 M/mcL (3.82-4.97); Red Cell Distribution Width 13.2 % (11.5-14.5); Segmented Neutrophils % 67.2 %; White Blood Count 6.2 K/mcL (4.3-11.1)
[2020-06-14] MEDS ORDERED: *HR* HYDROcodone/Acet 5/325 mg TABLET PO ONE (07:36)
[2020-06-14 07:59] LABS: Bacteria,Urine Moderate per hpf (None-Few); Bilirubin,Urine Negative (Negative); Blood,Urine Large (Negative); Clarity,Urine Ex.Turbid (Clear); Color,Urine Light-Orange (Yellow); Glucose,Urine (UA) Normal (Normal); Ketones,Urine Negative (Negative); Leukocyte Esterase,Urine Large (Negative); Mucus,Urine Few per lpf (None-Few); Nitrite,Urine Negative (Negative); Protein,Urine >=300 mg/dL (Neg-Trace); RBC,Urine TNTC per hpf (0-3); Specific Gravity,Urine 1.017 (1.010-1.025); Squamous Epithelial Cell,Urine Moderate per hpf (None-Few); Urobilinogen,Urine Normal (Normal); WBC,Urine TNTC per hpf (0-3)
[2020-06-14 08:11] LABS: Adenovirus Not Detected (Not Detect); Bordetella Pertussis Not Detected (Not Detect); Chlamydophila pneumoniae Not Detected (Not Detect); Coronavirus 229E Not Detected (Not Detect); Coronavirus HKU1 Not Detected (Not Detect); Coronavirus NL63 Not Detected (Not Detect); Coronavirus OC43 Not Detected (Not Detect); Human Metapneumovirus Not Detected (Not Detect); Human Rhinovirus/Enterovirus Not Detected (Not Detect); Influenza A Subtype 2009 H1 Not Detected (Not Detect); Influenza B Not Detected (Not Detect); Mycoplasma pneumoniae Not Detected (Not Detect); Parainfluenza Virus 1 Not Detected (Not Detect); Parainfluenza Virus 2 Not Detected (Not Detect); Parainfluenza Virus 3 Not Detected (Not Detect); Parainfluenza Virus 4 Not Detected (Not Detect); Respiratory Syncytial Virus Not Detected (Not Detect)
[2020-06-14 08:49] LABS: INR 1.2; Prothrombin Time 13.7 Seconds (9.4-12.1)
[2020-06-14 08:51] LABS: Activated Partial Thrombo Time 29.1 Seconds (26.0-36.0)
[2020-06-14 09:04] LABS: Alanine Aminotransferase 9 Units/L (7-52); Albumin 3.8 g/dL (3.5-5.7); Albumin/Globulin Ratio 1.4 (1.1-2.2); Alkaline Phosphatase 133 Units/L (34-104); Aspartate Amino Transferase 10 Units/L (13-39); BUN/Creatinine Ratio 6 (6-26); Bilirubin,Direct 0.1 mg/dL (0.0-0.2); Bilirubin,Indirect 0.3 mg/dL (0.0-1.0); Bilirubin,Total 0.4 mg/dL (0.3-1.0); Blood Urea Nitrogen 22 mg/dL (8-23); Calcium 9.4 mg/dL (8.6-10.3); Carbon Dioxide 25 mEq/L (23-29); Chloride 98 mEq/L (98-107); Globulin 2.8 g/dL (2.4-3.5); Glucose 180 mg/dL (70-105); Osmolality,Calculated 282 (280-300); Potassium 4.2 mEq/L (3.5-5.1); Sodium 132 mEq/L (136-145); Total Protein 6.6 g/dL (6.4-8.9); Troponin I < 0.03 ng/mL (< 0.04); eGFR For African Americans 15 (> 60); eGFR For Non-African Americans 13 (> 60)
[2020-06-14] MEDS ORDERED: Ondansetron 4 MG/2 ML VIAL IVP PRN (10:04)
[2020-06-14] MEDS ORDERED: Naloxone 0.4 MG/ML INJ IVP PRN (10:04)
[2020-06-14] MEDS ORDERED: Benzonatate 100 MG CAPSULE PO PRN (10:07)
[2020-06-14] MEDS ORDERED: Ipratropium/Albuterol Neb 3 ML IH PRN (10:37)
[2020-06-14] MEDS ORDERED: Ertapenem 500 MG in 0.9 % Sodium Chloride Mini Bag 100 ML IVPB SCH (11:00)
[2020-06-14] MEDS: *HR* HYDROcodone/Acet 5/325 mg TABLET PO PRN (12:53)
[2020-06-14] MEDS: Calcium Acetate 667 MG CAPSULE PO SCH ×2 (12:53→16:46)
[2020-06-14] MEDS: Ondansetron ODT 4 MG TAB.RAPDIS SL SCH (16:47)
[2020-06-14] MEDS ORDERED: NON-FORMULARY MEDICATION 1 EACH EACH (Insulin Detemir 12 UNIT) SQ SCH (21:00)
[2020-06-14] MEDS: Sucralfate 1 GM TABLET PO SCH (21:44)
[2020-06-14] MEDS: Insulin DETEMIR 100 UNIT/ML X5UNITS SQ SCH (21:49)
[2020-06-14] MEDS: Budesonide/Formoterol 160/4.5 1 PUFF INH IH SCH (22:35)
[2020-06-15] MEDS: Budesonide/Formoterol 160/4.5 1 PUFF INH IH SCH ×2 (07:32→20:06)
[2020-06-15 07:45] LABS: Basophils % 0.5 %; Eosinophils # 0.3 K/mcL (0.0-0.6); Eosinophils % 3.5 %; Hematocrit 34.9 % (35.3-44.9); Hemoglobin 10.7 g/dL (11.5-15.4); Immature Granulocytes % 0.5 % (0-4); Lymphocytes # 1.1 K/mcL (0.6-4.6); Lymphocytes % 13.4 %; Mean Corpuscular HGB Conc 30.7 g/dL (31.6-35.5); Mean Corpuscular Hemoglobin 31.1 pg (28.0-33.3); Mean Corpuscular Volume 101.5 fL (83.0-100.0); Mean Platelet Volume 11.3 fL (9.4-12.4); Monocytes # 0.8 K/mcL (0.0-1.3); Monocytes % 10.1 %; Neutrophils # 5.8 K/mcL (1.6-8.9); Platelet Count 151 K/mcL (140-400); Red Blood Count 3.44 M/mcL (3.82-4.97); Red Cell Distribution Width 13.2 % (11.5-14.5)
[2020-06-15] MEDS: lisinopriL 10 MG TABLET PO SCH (08:14)
[2020-06-15] MEDS: Ondansetron ODT 4 MG TAB.RAPDIS SL SCH ×3 (08:14→16:01)
[2020-06-15] MEDS: Aspirin Enteric Coated 81 MG Tablet PO SCH (08:14)
[2020-06-15] MEDS: Folic Acid 1 MG TABLET PO SCH (08:14)
[2020-06-15] MEDS: Metoprolol XL (24 HR) Succ 25 MG TAB.ER.24H PO SCH (08:14)
[2020-06-15] MEDS: Calcium Acetate 667 MG CAPSULE PO SCH ×3 (08:14→16:01)
[2020-06-15] MEDS: Sucralfate 1 GM TABLET PO SCH ×2 (08:14→19:59)
[2020-06-15] MEDS: amLODIPine 5 MG TABLET PO SCH (08:15)
[2020-06-15] MEDS: Isosorbide MONOnitrate (24 HR) 30 MG TAB.ER.24H PO SCH (08:15)
[2020-06-15] MEDS: Insulin DETEMIR 100 UNIT/ML X5UNITS SQ SCH (08:19)
[2020-06-15] MEDS ORDERED: Fluconazole 40 MG/ML UDC PO SCH (09:00)
[2020-06-15] MEDS ORDERED: D5% in Water 1,000 ML IVC PRN (10:10)
[2020-06-15] MEDS ORDERED: *HR* Dextrose 50 % in Water (Vial) 50 ML VIAL IVP PRN (10:10)
[2020-06-15] MEDS ORDERED: Dextrose Gel 15 GM/37.5 ML TUBE PO PRN ×2 (10:10)
[2020-06-15 12:06] LABS: Calcium 9.1 mg/dL (8.6-10.3); Phosphorous 2.6 mg/dL (2.7-4.5)
[2020-06-15] MEDS: Insulin LISPRO 300 UNITS/3 ML VIAL SQ SCH ×4 (13:03→15:57)
[2020-06-16] MEDS: *HR* HYDROcodone/Acet 5/325 mg TABLET PO PRN (04:05)
[2020-06-16 05:06] LABS: Hematocrit 33.4 % (35.3-44.9); Hemoglobin 10.2 g/dL (11.5-15.4); Mean Corpuscular HGB Conc 30.5 g/dL (31.6-35.5); Mean Corpuscular Hemoglobin 31.9 pg (28.0-33.3); Mean Corpuscular Volume 104.4 fL (83.0-100.0); Mean Platelet Volume 10.1 fL (9.4-12.4); Platelet Count 162 K/mcL (140-400); Red Cell Distribution Width 13.2 % (11.5-14.5); White Blood Count 7.4 K/mcL (4.3-11.1)
[2020-06-16 05:23] LABS: Calcium 8.8 mg/dL (8.6-10.3); Potassium 5.1 mEq/L (3.5-5.1)
[2020-06-16] MEDS: Calcium Acetate 667 MG CAPSULE PO SCH ×2 (07:52→12:17)
[2020-06-16] MEDS: Folic Acid 1 MG TABLET PO SCH (07:52)
[2020-06-16] MEDS: Aspirin Enteric Coated 81 MG Tablet PO SCH (07:52)
[2020-06-16] MEDS: Insulin LISPRO 300 UNITS/3 ML VIAL SQ SCH ×4 (07:53→12:17)
[2020-06-16] MEDS: Sucralfate 1 GM TABLET PO SCH (07:53)
[2020-06-16] MEDS: Ondansetron ODT 4 MG TAB.RAPDIS SL SCH ×2 (07:53→12:54)
[2020-06-16] MEDS: Budesonide/Formoterol 160/4.5 1 PUFF INH IH SCH (08:06)
[2020-06-16] MEDS: amLODIPine 5 MG TABLET PO SCH (08:10)
[2020-06-16] MEDS: Isosorbide MONOnitrate (24 HR) 30 MG TAB.ER.24H PO SCH (08:10)
[2020-06-16] MEDS: Metoprolol XL (24 HR) Succ 25 MG TAB.ER.24H PO SCH (08:10)
[2020-06-16] MEDS: lisinopriL 10 MG TABLET PO SCH (08:11)
[2020-06-16] MEDS ORDERED: 0.9 % Sodium Chloride 250 ML IVC PRN (08:34)
[2020-06-16] MEDS ORDERED: 0.9 % Sodium Chloride 1,000 ML PRIME SCH (08:45)
[2020-06-16] MEDS ORDERED: *HR* HYDROcodone/Acet 5/325 mg TABLET PO ONE (09:54)
[2020-06-16 10:30] LABS: Hepatitis B Surface Antibody < 3.10 mIU/mL
[2020-06-16 10:41] LABS: Hepatitis B Surface Antigen Nonreactive (Nonreactive)
[2020-06-16 12:46] VITALS: BP 114/72
[2020-06-16] MEDS ORDERED: Fluconazole 100 MG TABLET PO SCH (14:00)
== END 2020-06-16 16:43 | disposition home or self-care (01) | DRG 689 ==
LOC: EMEROOARM 06:37 → 2NENU 06:37 → 2ANU 11:02
PROVIDERS: ADMIT Student in an Organized Health Care Education/Training Program; ATTEND Student in an Organized Health Care Education/Training Program